=== PATIENT | female | born 1945 | race Caucasian/White ===

== ENCOUNTER 2024-03-01 19:28 | Emergency (ER) | payer OTHER, SELFPAY ==
[2024-03-01 19:36] VITALS: BP 149/100; PULSE 76; TEMP 36.6; O2SAT 96; BMI 31.1
--- NOTE | 2024-03-01 19:46 | ED.LOWEXI1 ---
HPI HPI - Extremity Injury (Lower) General Chief Complaint: Extremity Injury, Lower Stated Complaint: LE INJURY Time Seen by Provider: 03/01/24 19:36 Source: patient Mode of arrival: Wheelchair Limitations: no limitations History of Present Illness HPI Narrative: 79 year old female presents to the ED for left knee pain. It wraps around the knee then up and down the leg. Onset was a few days ago. Denies fever, chills, injury, weakness, N/T. She had outpatient x-rays at [facility] today. States her pcp was to send a prescription for pain medication to her pharmacy, but the pharmacy did not receive a prescription today. She is accompanied by family. Related Data Home Medications ?Medication ?Instructions ?Recorded ?Confirmed amitriptyline 25 mg tablet mg 03/01/24 amlodipine 5 mg tablet mg 03/01/24 clonazepam 0.5 mg tablet mg 03/01/24 duloxetine 30 mg capsule,delayed mg PO 03/01/24 release gabapentin 100 mg capsule mg 03/01/24 gabapentin 400 mg capsule mg 03/01/24 hydroxychloroquine 200 mg tablet mg PO 03/01/24 metoprolol tartrate 50 mg tablet 50 mg PO BID 03/01/24 03/01/24 (Lopressor) omeprazole 40 mg capsule,delayed mg 03/01/24 release simvastatin 20 mg tablet mg 03/01/24 Previous Rx's ?Medication ?Instructions ?Recorded hydrocodone 5 mg-acetaminophen 325 1 tab PO Q8H PRN pain #12 tabs 03/01/24 mg tablet prednisone 20 mg tablet 40 mg (2 x 20 mg) PO DAILY #10 tabs 03/01/24 Allergies Allergy/AdvReac Type Severity Reaction Status Date / Time No Known Drug Allergies Allergy Verified 03/01/24 19:45 Opioid HPI Opioid Management Most Recent Pain and Opioid Data: No Data to Display Review of Systems ROS Constitutional Denies: fever or chills Cardiovascular Denies: chest pain Respiratory Denies: shortness of breath Musculoskeletal Reports: extremity pain; Denies: back pain Neurological Denies: numbness in extremities or weakness in extremities PFSH PFSH Social History Little interest or pleasure in doing things: not at all Feeling down, depressed, or hopeless: not at all Exam Constitutional Vital Signs, click to edit/add: Last Vital Signs Temp 97.8 F 03/01/24 19:36 Pulse 76 03/01/24 19:36 Resp 20 03/01/24 19:36 BP 149/100 H 03/01/24 19:36 Pulse Ox 96 03/01/24 19:36 O2 Del Method Room Air 03/01/24 19:36 Common normals: no apparent distress and oriented x3 General appearance: cooperative Eye Common normals: conjunctivae normal and no scleral icterus Neck & C-Spine Common normals: supple Chest Chest: symmetrical chest wall rise Respiratory Common normals: normal respiratory effort Effort & inspection: able to speak in complete sentences and symmetric chest movement Cardio Common normals: regular rate Peripheral pulses: posterior tibial pulses present and dorsalis pedis pulses present Extremity Left lower extremity: knee joint (Mild swelling, tenderness. No deformity. No erythema or wounds. ) Left knee: palpation (Generalized tenderness.), ROM (Full ROM, but with increased pain), neurovascular exam (Distal sensation intact.) and other (No increased warmth.) Neuro Common normals: oriented x3 and moves all extremities Sensorium/orientation: awake and alert Speech: speech normal Course Vital Signs Vital signs: Vital Signs Temperature 97.8 F 03/01/24 19:36 Pulse Rate 76 03/01/24 19:36 Respiratory Rate 20 03/01/24 19:36 Blood Pressure 149/100 H 03/01/24 19:36 Pulse Oximetry 96 03/01/24 19:36 Oxygen Delivery Method Room Air 03/01/24 19:36 Temperature 97.8 F 03/01/24 19:36 Pulse Rate 76 03/01/24 19:36 Respiratory Rate 20 03/01/24 19:36 Blood Pressure 149/100 H 03/01/24 19:36 Pulse Oximetry 96 03/01/24 19:36 Oxygen Delivery Method Room Air 03/01/24 19:36 MDM - Extremity Injury (Lower) MDM Narrative Medical decision making narrative: Outpatient x-ray report from [facility] was reviewed. It reflected osteopenia, degenerative changes, and a knee effusion. Findings were discussed with the patient. An jose wrap was applied. The application was checked and was appropriate; the LLE remained NVI. OARRS was reviewed. Prescriptions were provided for prednisone and norco. Follow up with pcp and an orthopedist for a recheck, further evaluation and treatment. Differential Diagnosis Differential diagnosis: Likely acute internal derangement of knee and other (Knee effusion, knee pain, osteoarthritis, effusion) Medical Records Attestation: I reviewed the patient's medical records. Discharge Plan Discharge Chief Complaint: Extremity Injury, Lower Clinical Impression: Acute knee pain, Effusion of knee joint Patient Disposition: Home, Self-Care Time of Disposition Decision: 20:17 Condition: Good Mode of Transportation: Private Vehicle Prescriptions / Home Meds: New hydrocodone-acetaminophen 5-325 mg tablet 1 tab PO Q8H PRN (Reason: pain) Qty: 12 0RF prednisone 20 mg tablet 40 mg PO DAILY Qty: 10 0RF No Action clonazepam 0.5 mg tablet gabapentin 400 mg capsule amlodipine 5 mg tablet omeprazole 40 mg capsule,delayed release(DR/EC) amitriptyline 25 mg tablet simvastatin 20 mg tablet gabapentin 100 mg capsule hydroxychloroquine 200 mg tablet PO duloxetine 30 mg capsule,delayed release(DR/EC) PO metoprolol tartrate [Lopressor] 50 mg tablet 50 mg PO BID Print Language: Urugu[place] Instructions: Swollen Knee Joint (ED), Knee Pain (ED), Arthralgia (ED) Additional Instructions: Follow up with your medical record specialist for a recheck, further evaluation and treatment. Return to the ER for worsening symptoms. Referrals: MAYCO VELASQUEZ [Primary Care Provider] - 1 week
[2024-03-01] MEDS: MORPHINE SULFATE 4 MG/ML VIAL IM (20:05)
[2024-03-01] MEDS: ONDANSETRON 4 MG RAPDIS TABLET SL (20:06)
[2024-03-01] MEDS: HYDROCODONE/ACET 5-325 MG TABLET 2 TAB PO (20:45)
== END 2024-03-01 21:01 | disposition home or self-care (01) ==
PROVIDERS: Emergency Provider Student in an Organized Health Care Education/Training Program; PCP Family Medicine
DX: M25.462 Effusion, left knee (principal); M25.562 Pain in left knee
CPT/HCPCS: 96372; 99284; J2270; Q0162

== ENCOUNTER 2025-01-22 06:16 | Emergency (ER) | payer OTHER, SELFPAY ==
--- OUTSIDE RECORDS SUMMARY | 2012-02-17 04:09 | XMS_ITS | Continuity of Care Document ---
Author Organization [facility] Address [address] [place] [address] Phone Care Team Providers Care Welcome [place] Agent Name Role Phone Greg Zuluaga Unavailable Unavailable [...] Copied on Encounter OFFICE/OUTPAT IENT VISIT, EST [facility], [address], [place], [id number], [place] tel:[phone] [facility] Need for prophylactic vaccination and inoculation against viralhepatitis Ausncion Davison. [address], [place], [id number] , [place]. tel:[phone] Family History Family Member Type Diagnosis Age At Onset No Information Immunizations Vaccine Date Status Comments Hep A (adult) administered Note: VIS give n ; Source: New Immunization Record Payers Payer name Insurance type Covered republican ID Authoriza tion(s) Aetna Medicare Advantage [id number] [...]
--- OUTSIDE RECORDS SUMMARY | 2025-01-09 19:14 | XMS_ITS | Continuity of Care Document ---
Author Organization [facility] Address [address] [place] [address] Phone Care Team Providers Care Ux Information Architect Name Role Phone Florentino Mabry DO Primary Care Provider [phone] Self, Referral Attending Provider Unavailable Florentino Mabry DO Attending Provider Care Teams Patient Care Team Team Status: Active Member Role/Relationship Status Dates Florentino Mabry DO Primary Care Provider Active Visit Care Team Team Status: Inactive Member Role/Relationship Status Dates Florentino Mabry DO Primary Care Provider Active S tart: October 19, 2024 End: October 19, 2024Referral SelfAttending ProviderActiveStart: October 19, 2024 End: October 19, 2024 Visit Care Team Team Status: Inactive Member Role/Relationship Status Dates Florentino Mabry DO Primary Care Provider Active S tart: November 21, 2024 End: November 21, 2024Datramaine Mabry DOAttending ProviderActiveStart: November 21, 2024 End: November 21, 2024 Visit Care Team Team Status: Active Member Role/Relationship Status Dates Florentino Mabry DO Primary Care Provider Active S tart: November 23, 2024 Robert Campbell ProviderActiveStart: November 23, 2024 Visit Care Team Team Status: Inactive Member Role/Relationship Status Dates Florentino Mabry DO Primary Care Provider Active S tart: November 23, 2024 End: November 23, 2024Datramaine Mabry DOAttending ProviderActiveStart: November 23, 2024 End: November 23, 2024 Visit Care Team Team Status: Inactive Member Role/Relationship Status Dates Florentino Mabry DO Primary Care Provider Active S tart: December 02, 2024 End: December 02, 2024DaRobert Arias ProviderActiveStart: December 02, 2024 End: December 02, 2024 Visit Care Team Team Status: Inactive Member Role/Relationship Status Dates Florentino Mabry DO Primary Care Provider Active S tart: December 05, 2024 End: December 05, 2024DaRobert Arias ProviderActiveStart: December 05, 2024 End: December 05, 2024 Patient Care Team Team Status: Inactive Member Role/Relationship Status Florentino Mabry Primary Care Provider Active S tart: January 09, 2025 End: January 09, 2025DaRobert Arias ProviderActiveStart: January 09, 2025 End: January 09, 2025 Chief Complaint and Reason for Visit Chief Complaint Admit Date Screening October 19, 2024 8:0 7am R73.9, N30.90, E55.9, Z79.899, E78.5 [facility] 8:16am Referral Order November 23, 2024 1:02pm N39.0 November 23, 2024 1:15pm review labs/med refill December 02 8:01am N39.0 December 05, 2024 12:37pm i49.9 r06.02 January 09, 2025 7 :33am Reason for Visit Admit Date Anxiety December 02, 2024 8:01am Edema December 02, 2024 8:01am Hyperglycemia December 02, 2024 8:01am Hyperlipidemia December 02, 2024 8:01am Hypertension December 02, 2024 8:01am Iron deficiency anemia December 02 025 8:01am [facility] 8:01am Restless leg syndrome December 02 8:01am SVT (supraventricular tachycardia) [facility] 2024 8:01am UTI (urinary tract infection) December 02, 2024 8:01am Vitamin D deficiency December 02 8:01am Weight loss December 02, 2024 8:01am Allergies, Adverse Reactions, Alerts Allergen Type Severity Reaction Last Updated Verified Status lorazepam Adverse Reaction Severe Confusion Septembe r 2024 8:28am Yes Active Social History Smoking Status Status Start Date End Date Date of Observa tion Never smoked tobacco (finding) July 17, 2024 11:57pm Observation Status Observation Response Date of Response Legal Sex Female (finding) [facility] Family History Relationship Condition Age at Onset Recorded Date/T gonzales daughter Malignant neoplasm Unknown fatherDeceasedUnknownHeart diseaseUnknowngrandparentDeceasedUnknownMalignant neoplasmUnknowngrandparentDeceasedUnknowngrandparentDeceasedUnknownHeart disease UnknowngrandparentDeceasedUnknownMalignant neoplasmUnknowngrandparentMalignant neoplasmUnknowngrandparentMalignant neoplasmUnknownmotherDeceasedUnknown Malignant neoplasmUnknown Problems Active Problems Problem Diagnosis/Recorded Date Onset Date Status C omments UTI (urinary tract infection) November 23, 2024 11:23am Unknown Active Rheumatoid arthritisMay 2023 2:51pmUnknownActiveInsomniaMay 2023 2:51pmUnknownActiveCarpal tunnel syndrome of left wristMarch 2024 8:35am UnknownActiveShortness of breathSeptember 2024 1:32pmUnknownActiveFatty liverFebruary 2023 9:01amUnknownActiveAnxietyFebruary 2023 9:01am UnknownActiveArrhythmiaSeptember 2024 11:24amUnknownActiveEdemaSeptember 2024 8:41amUnknownActiveHistory of carpal tunnel surgery of right wrist June 01, 2024 8:23amUnknownActiveHyperglycemiaJune 2023 8:42amUnknown ActiveHyperlipidemiaFebruary 2023 9:01amUnknownActivePulmonary noduleMay 2023 11:27amUnknownActivesaw Dr. Mcrae in the past, has history of stable noncalcified pulmonary nodules bilaterallyOsteoarthritisJune 2023 8:36am UnknownActiveOsteopeniaFebruary 2023 9:01amUnknownActiveNeuropathyMay 2023 2:55pmUnknownActiveRestless leg syndromeFebruary 2023 9:01am UnknownActiveSVT (supraventricular tachycardia)July 28, 2023 2:51pmUnknown ActiveLumbar degenerative disc diseaseAugust 2023 3:58pmUnknownActiveWeight gainFebruary 2023 9:42amUnknownActiveWeight lossSeptember 2024 8:32amUnknownActiveIron deficiency anemiaFebruary 2023 9:01amUnknownActive Knee pain, leftDecember 2023 9:29amUnknownActiveSensorineural hearing loss (SNHL) of right earOctober 2018 9:12amUnknownActiveCystitisMarch 2023 1:34pmUnknownActiveHypertensionFebruary 2023 9:01amUnknownActiveNumbness and tingling in left handDecember 2023 9:29amUnknownActiveVitamin D deficiencyMay 2023 11:27amUnknownActiveInactive/Resolved Problems Problem Diagnosis/Recorded Date Onset Date Status C omments Anxiety July 18, 2024 12:55am Unknown Resolved CephalgiaMay 2024 12:55amUnknownResolvedNauseaMay 2024 12:55amUnknown ResolvedAcute hypokalemiaMay 2024 12:56amUnknownResolved Medications Medication Status Dose Units Route Directions Qty Days Refills S tart Date Stop Date End Date Reason(s) Instructions Adherence Cephalexin 500 mg capsule Discontinued 500 MG PO T wice daily 14 0May 18, 2023 1:00amJune 2023 8:11amCephalexin 500 mg capsule Kpsviocgmjuw923YTHZOvbsm times tbzry6124IqbxtJune 03, 2023 12:00amMarch 2023 10:51amCephalexin 500 mg ngizazuCwhbmznzsrcy456TIIZQwwah times klise2717Mzhfb 2023 10:50amJune 2023 8:11amNitrofurantoin Monohyd/M-Cryst (Macrobid) 100 mg souejkiYnmwuiqsdjjx689QXCBQdybu siejt2043Dloen 2023 12:00amJune 2023 8:15ammust administer with a meal/foodClonazepam 0.5 mg tabletDiscontinued0 POAs Brdeokbd64756Jgepx 2023 10:31amMay 2023 8:27amRestless legs syndrome Restless legs syndrometake 1-2 (0.5 MG) tablets at HS & take 1 (0.5 MG) tab in the AM orally as directed;Clonazepam 0.5 mg tsxleeUasgeaiktigk5IBVm Tawwxapy9128 0Sdy 2023 8:26amJune 2023 4:56pmRestless legs syndrome Restless legs syndrometake 1-2 (0.5 MG) tablets at HS & take 1 (0.5 MG) tab in the AM orally as directed;Clonazepam 0.5 mg aodgtuGkoqxpntxpkr8IGCu Rlestfec4945 0June 2023 4:55pmJuly 2023 9:05amRestless legs syndrome Restless legs syndrometake 1-2 (0.5 MG) tablets at HS & take 1 (0.5 MG) tab in the AM orally as directed;Clonazepam 0.5 mg nadvsaRjnmknrvylgd9PTHb Qnotinbm3607 0July 2023 9:05amSeptember 2023 9:15amRestless legs syndrome Restless legs syndrometake 1-2 (0.5 MG) tablets at HS & take 1 (0.5 MG) tab in the AM orally as directed;Methylprednisolone (Medrol (Royal)) 4 mg tablets,dose kcmdFjdcbqmwgyiz6GKjym package cxctkjbiem3102Tmld 2023 12:00amJuly 2023 12:42pmwith foodMethylprednisolone (Medrol (Royal)) 4 mg tablets,dose pack Lskqverluljf0YIstf package ajnuuvhxni2239Vblc 2023 12:42pmAugust 2023 3:48pmwith foodPrednisone 20 mg chwadxPwscxpoldzil4SY.with food or cgzv6317 October 22, 2023 12:00amSeptember 2023 8:15amtake 3 tablets a day x3 days, 2 tabs a day x3 days and then 1 tab a day x3 days orally WITH FOOD ORMILK; Duloxetine 30 mg capsule,delayed release(DR/EC)Ytssnmsnhflt52BBQBHdkqf daily October 29, 2023 9:16amAugu2023 10:50amDuloxetine 30 mg capsule,delayed release(DR/EC)Ykrodvitldra52FVZDOauqi tuzgp8235Afgzbm 15th, 2024 10:49amAugust 2023 10:53amDuloxetine 30 mg capsule,delayed release(DR/EC) Pwttfurfzdmz35WMTWOvgkc ugkwb89490Dysxhg 2023 10:52amAugust 2024 8:21amHydrocodone-Acetaminophen 5-325 mg rkrfzgBukjiwtrztzr0AGCIMWsdwx 6 hours as needed for jqid1090Slhdha 2023September 2023 8:15amDegeneration of intervertebral disc of lumbar region Other intervertebral disc degeneration, lumbar regionClonazepam 0.5 mg tablet Phvgvqixdepm2ZGKa Emqcsgxk14136Btyuzexaw 3rd, 2024 9:12amOctober 2023 2:31pmRestless legs syndrome Restless legs syndrometake 1-2 (0.5 MG) tablets at HS & take 1 (0.5 MG) tab in the AM orally as directed;Clonazepam 0.5 mg arctzrPeiziqcoenvf6CFSx Jhvwwreu2354 0October 2023 2:30pmNovember 2023 2:57pmRestless legs syndrome Restless legs syndrometake 1-2 (0.5 MG) tablets at HS & take 1 (0.5 MG) tab in the AM orally as directed;Clonazepam 0.5 mg gmuwmpVwvizvrocevc4BTLf Nfisyyah8419 0December 2023 4:03pmJanuary 2024 10:47amRestless legs syndrome Restless legs syndrometake 1-2 (0.5 MG) tablets at HS & take 1 (0.5 MG) tab in the AM orally as directed;Hydrocodone-Acetaminophen 5-325 mg tabletDiscontinued1 TABPOEvery 6 hours as needed for jzgq2116Rovbhdga 2023June 2024 9:44amLeft knee pain Pain in left kneeClonazepam 0.5 mg tnznljAzihezskwbco3XWWt Ocvwdkes95440Dgvsomv 2024 10:46amFebruary 2024 1:41pmRestless legs syndrome Restless legs syndrometake 1-2 (0.5 MG) tablets at HS & take 1 (0.5 MG) tab in the AM orally as directed;Omeprazole 40 mg capsule,delayed release(DR/EC)Active 40MGPOTwice eygfq0077Wblavdo2024 10:10amUnknownOseltamivir (Tamiflu) 75 mg bhujdrwNtpsjcwdyild34KKDRCpygt950Tztodnqo 2024 1:00amMarch 2024 8:15amClonazepam 0.5 mg aiixhnXjemnkojfbps2NXWf Nhxbyqmm00995Oizgpurw 2024 1:41pmMarch 2024 8:51amRestless legs syndrome Restless legs syndrometake 1-2 (0.5 MG) tablets at HS & take 1 (0.5 MG) tab in the AM orally as directed;Simvastatin 20 mg ugkirfEwkmvu88QWUZRsjus xonlnfu752 May 09, 2024 9:48amUnknownMeloxicam 15 mg maxndcOjptnxrilqyg12UMYXJicsl01 0March 2024 10:02amApril 2024 9:54amMeloxicam 15 mg tabletDiscontinued 0.ROUTE.SSQAKVU763Mdzbh 2024 9:53amJuly 2024 11:28amTAKE 1 TABLET DAILYClonazepam 0.5 mg eaohafVkkjxxksukns1BFWi Gahfjcwq43316Rrefm 2024 3:07pmMay 2024 8:09amRestless legs syndrome Restless legs syndrometake 1-2 (0.5 MG) tablets at HS & take 1 (0.5 MG) tab in the AM orally as directed;Valsartan 160 mg scauabIbjewq268VBFJTemxk670Bnk 2024 8:09amUnknownClonazepam 0.5 mg gbucqbTpkwjsqzkzuz7NVBx Xaueofec79394Tee 2024 8:09amJune 2024 3:16pmRestless legs syndrome Restless legs syndrometake 1-2 (0.5 MG) tablets at HS & take 1 (0.5 MG) tab in the AM orally as directed;Clonazepam 0.5 mg pydrefLrfowgdaqphn5ZSYh Cwadshbp1087 0June 2024 3:16pmJuly 2024 8:51amRestless legs syndrome Restless legs syndrometake 1-2 (0.5 MG) tablets at HS & take 1 (0.5 MG) tab in the AM orally as directed;Ropinirole 0.25 mg tabletDiscontinued0.25MGPODaily at ydboewu905Sbjv 2024 12:00amJuly 2024 8:51amadminister 1-3 hours before bedtimeRopinirole 0.25 mg tabletDiscontinued0.25MGPODaily at ndwbcmu359 October 05, 2024 8:50amOctober 2024 11:53amadminister 1-3 hours before bedtimeClonazepam 0.5 mg muoncsSzfpxabibtya4POYc Cdkcmnny03379Yxel 2024 8:51amJuly 2024 8:51amRestless legs syndrome Restless legs syndrometake 1-2 (0.5 MG) tablets at HS & take 1 (0.5 MG) tab in the AM orally as directed;Clonazepam 0.5 mg lgfxyuLqawjbywtqsc8DNLw Xfliwtzn7017 0July 2024 8:51amSeptember 2024 8:43amRestless legs syndrome Restless legs syndrometake 1-2 (0.5 MG) tablets at HS & take 1 (0.5 MG) tab in the AM orally as directed;Meloxicam 15 mg tabletDiscontinued0.ROUTE.WXUQIHQ318 October 12, 2024 11:27amAugust 2024 8:21amTake 1 tablet by mouth once daily Duloxetine 30 mg capsule,delayed release(DR/EC)Discontinued0.ROUTE.NZKSOAT7632 October 21, 2024 8:21amSept2024 8:24amTAKE 1 CAPSULE TWICE DAILY Meloxicam 15 mg tabletDiscontinued0.ROUTE.ZVNQXOY398Okkukk 2024 8:21am December 02, 2024 8:24amTAKE 1 TABLET DAILYClonazepam 0.5 mg szwnsgFalpga0KA As Zeilogpw74959Rhvncjpjh 10th, 2025 8:43amRestless legs syndrome Restless legs syndrometake 1-2 (0.5 MG) tablets at HS & take 1 (0.5 MG) tab in the AM orally as directed;UnknownCefdinir 300 mg hfrgitzKuabon861SMNVKbppt53212 November 23, 2024 12:00amTake 2 (300 mg) capsules together once a day for 10 daysUnknownRopinirole 0.25 mg tabletActive0.25MGPODaily at lbbshos830Yzlqzwq 2024 11:53amadminister 1-3 hours before bedtimeUnknownMetoprolol Succinate 50 mg Tablet Extended Release 24 MaWwrwlr40YJIARgzpi dailyJanuary 2017 1:00amUnknownHydrocodone-Acetaminophen 5-325 mg znxatsRqvaovfkqmph6CSWPRD2H as needed for PainJanuary 2017 1:00amFebruary 2023 9:18amMeloxicam 15 mg YopwrjUgxdglfhrooi01CPMSXyngzBqthiib 2017 1:00amJune 2023 8:39am Clonazepam 0.5 mg gbishwMbizcxggigad5OGREQKsott at bedtimeJanuary 2017 1:00amFebruary 2023 9:54amAmlodipine 5 mg RpawnrNyohddtojggn7DMGFUMzfzg March 17, 2017 1:00amAugust 2023 3:47pmOmeprazole 40 mg Capsule,Delayed Release(Dr/Ec)Tdqmqrlqwmbu35OWPKIlgtxXjwbilf 2017 1:00amJune 2023 8:17amAspirin (Aspir-81) 81 mg Tablet,Delayed Release (Dr/Ec)Fiuhgohkutzb12DBJF DailyJanuary 2017 1:00amFebruary 2023 9:16amAmitriptyline 25 mg WoylbvZldiiqcjojoj97WAGOZlkwv at bedtimeJanuary 2017 1:00amMa2024 12:07amTriamcinolone Acetonide 0.025 % NrfruIaghgodukhre6OHJKISIIKKNJDFpisp March 17, 2017 1:00amJune 2023 8:17amSimvastatin 20 mg Tablet Vralwfgdvyux00EKCPGbete eveningMarch 17, 2017 1:00amFebruary 2024 9:49amDuloxetine 30 mg Capsule,Delayed Release(Dr/Ec)Fywfjuxjdsgt83EADYRphqd March 17, 2017 1:00amAugust 2023 9:17amZolmitriptan (Zomig) 2.5 mg [place],Non-XxbvxmlQhbhaq1LHFIBZMSJYZYXebc times daily as needed for Headache March 17, 2017 1:00amUnknownMultivitamin WdkdslCwridr1PDXBMKjvppHnjeyrs 2018 12:00amUnknownAscorbic Acid (Vitamin C) (Vitamin C) 500 mg TndkykEeegnq079 MGPODailyOctober 2018 12:00amUnknownFerrous Sulfate (Iron) 325 mg (65 mg iron) CxylxkSjapjnizwucy12FSUDCewsmHrvyila 2018 12:00amAugust 20, 2023 8:17amVitamin E 400 unit HptvtniMydzgu522VIYBVYLzaclEfdtklu 2018 12:00am UnknownVitamin B Complex (Super B-50 Complex) MhzvfdiZezchl3ZYDPNBpwieJiobkvj 2018 12:00amUnknownCoenzyme Q10 (Coq-10) 100 mg HzubmqgKqommn537TARUKcccf January 04, 2019 12:00amUnknownCholecalciferol (Vitamin D3) (Vitamin D3) 5,000 unit ZulinvUncizp9335RVMIGFQcromNggqgvc 2018 12:00amUnknownSodium Bicarbonate 325 mg HwbqrkJddkghgfyjix6FDWEByabv dailyOctober 2018 12:00am May 13, 2023 9:19amOndansetron Hcl 4 mg dfbgvfRutcnj8ALENKpjqx 8 hours as needed for nausea and kryjzwjd8383Ejx 5th, 2025 12:00amUnknownHydroxychloroquine 200 mg ypwqqrJckliytmqkjv721MWXPAqgbm dailyFebruary 2023 1:00amJune 2024 10:29amFreeTextSig: TAKE 1 TABLET BY MOUTH TWICE DAILY Oral; Note: Source Status: Continue; Provider: MEG ROBERTGabapentin 100 mg capsuleDiscontinued MGPOFebruary 2023 1:00amFebruary 2023 9:21amFreeTextSi capsule Orally 4 in the am. and 5 at night; Note: Source Status: Taking; Provider: Zelda Good CAspirin (Tre Chewable Aspirin) 81 mg tablet,gysdyhvfGerpkduxocnx15 MGPODailyFebruary 2023 1:00amFebruary 2023 9:16amGabapentin 100 mg rnnkkvyJhzhctjiqexi872BBAMFfnacvhj 2023 9:17amJune 2023 8:17am FreeTextSi capsule Orally 5 in the am. and 5 at night; Note: Source Status: Taking; Provider: Clotilde Good CSodium Chloride 1,000 mg tablet,soluble Dsjtvredepud2KLKHPBrish dailyFebruary 2023 1:00amJune 2023 8:17am FreeTextSi tablet Orally Twice a day; Note: Source Status: Taking; Provider: Clotilde Good CVitamin B Complex ftaygpGbjbzcqchjno5DIXXARjrkoRgkvamck 2023 1:00amAugust 2023 3:49pmOmega-3 Fatty Acids 1,000 mg capsuleDiscontinued 1000MGPODailyFebruary 2023 1:00amJune 2023 8:16amClonazepam 0.5 mg icvpcaDyknzolkjqsw2WEKy Directed as neededFebruary 2023 9:52amFebruary 2023 9:55amtake 1-2 (0.5 MG) tablets at HS & take 1 (0.5 MG) tab in the AM orally as directed PRN;Clonazepam 0.5 mg sfhujlXrgfolaycloa6MSLn Yphpccfx93727 May 13, 2023 9:54amApril 2023 10:31amRestless legs syndrome Restless legs syndrometake 1-2 (0.5 MG) tablets at HS & take 1 (0.5 MG) tab in the AM orally as directed;Ferrous Sulfate (Iron) 325 mg (65 mg iron) tablet Wcqkgbzepuzq22QDEA.[facility]2023 8:12amSept2023 8:16am1 tablet by mouth Thursday and ThuGabapentin 100 mg rpmregpRxpksrsydviz6LL.[facility] August 20, 2023 8:12amMay 2024 12:06amtake 1 (100 MG) capsule in the morning by mouth and take 2 (100 MG) capsules at nightGabapentin 400 mg capsule Xojwchvjtpwx255JTMHEafwq jfkld512Mzfn 6th, 2024 12:00amMay 2024 12:06am Omeprazole 40 mg capsule,delayed release(DR/EC)Bajzzrtufqok97OTLJPvpkt dailySelect [facility]2023 8:16amJanuary 2024 10:11amSodium Chloride 1,000 mg tablet,jjugiuuBtkcke8049QAOADbmwm dailySelect [facility]2023 8:16amUnknownMeloxicam 15 mg khftjkWtkdpmehsxre54BBBWJiizl976Xwte 2023 8:38amDeceer 2023 2:54pmFerrous Sulfate (Iron) 325 mg (65 mg iron) zynxcjSqstchrhbxiw56VZWS .[facility]2023 8:14amSept2023 8:24am1 tablet by mouth Thursday and Thu and ThuFerrous Sulfate (Iron) 325 mg (65 mg iron) tablet Lsbbdrfemtne61MEID.[facility]2023 8:24amSept2023 8:50am 65 mg orally 1 tablet by mouth Thursday and Thu and Thu;Ciprofloxacin Hcl 500 mg ojwndpWsuxsvqnjejo359IRXELpbdx mawky993Mtfnc 2023 12:00amMarch 2023 9:09amHydrocodone-Acetaminophen 5-325 mg yshtlbWysxxsxiogje3FULWIVsjlf 6 hours as needed for wzsf3061Nmgwuutt 17th, 2024Deceer 2023 9:13amLeft knee pain Pain in left kneeClonazepam 0.5 mg yymwdeDggmxhjrevgw8SGFr Yfdvivnq23345Kdcmg 2024 8:50amApril 2024 3:07pmRestless legs syndrome Restless legs syndrometake 1-2 (0.5 MG) tablets at HS & take 1 (0.5 MG) tab in the AM orally as directed;Amlodipine 5 mg ixdhcaTvyhtzwxaile3AYCUKirfpJbmkrdnn 4th, 2024 1:00amNovember 2023 2:57pmAmlodipine 5 mg ratyxvDxfdbxyrbify0HSKJ Kmwdw905Yhlrzyml2023 2:57pmSept2024 8:51amClonazepam 0.5 mg wnadgyTawefenaohzb8BMXn Jpkzoijz63544Wdfinkiv 4th, 2024 2:57pmDecember 2023 4:03pmRestless legs syndrome Restless legs syndrometake 1-2 (0.5 MG) tablets at HS & take 1 (0.5 MG) tab in the AM orally as directed;Duloxetine 30 mg capsule,delayed release(DR/EC)Active 30MGPOTwice dailyDecember 02, 2024 8:23amUnknownMeloxicam 15 mg tabletActive 15MGPODailyDecember 02, 2024 8:23amUnknownAmlodipine 5 mg tjxczwMecmoj1KC Xdqmw794Ryekfgpcj2024 8:50amtake 1/2 of a 5 MG tablet orally daily; UnknownFerrous Sulfate (Iron) 325 mg (65 mg iron) bunxvwParcfi710XETJ.once weeklyDecember 03, 2023 8:48amUnknownZinc Amino Acid Chelate 50 mg tablet Mxzvwh25KGJQMhgnoWtfewa 2023 12:00amUnknownValsartan 160 mg tablet Qlxggtfvzywu431ZRHDXexplGbnrwo 2023 12:00amMay 2024 8:09am Hydrocodone-Acetaminophen 5-325 mg hslulmVsiltoqfkcax9QAMXCSkjft 6 hours as needed for chro4586Wxqwuz ugust 2023 8:28amDegeneration of intervertebral disc of lumbar region Other intervertebral disc degeneration, lumbar regionHydroxychloroquine 200 mg gdndrvYfovvsbzjcaz802WCFNYqbux cysjg89561Zenz 2024 10:26amSeptember 2024 8:14am Immunizations Immunization Event Date Not Given Reason Dose Number [employer] Lot Number Reason(s) Given Vaccine Information Statement (VIS) Detail Administration Location influenza, unspecified formulation January 11, 2020 Zoster Vaccine Recombinant, AdjuvantedSeptember 2018Trivalent Influenza VaccineOctober 2015Trivalent Influenza VaccineSeptember 2016Trivalent Influenza VaccineSeptember 2017Trivalent Influenza VaccineSeptember 2018Trivalent Influenza VaccineOctober 2019 Medical Equipment Device Date Implanted Device Details [id number] .045 STERILE 4IN March 18, 2017 Procedures Procedure Date Performed Status Urine Culture November 21, 2024 completed MM screening mammo BI w/CAD October 19, 2024 8:0 9am completed Blood Culture November 23, 2024 completed Blood Culture November 23, 2024 completed Urine Culture December 05, 2024 completed Relevant Diagnostic Tests and/or Laboratory Data Laboratory Results Test Collection Date/Time Result Date/Time Result Interpretation Reference Range Result Comment Performing Site Corrected White Blood Count November 21, 2024 8:20am November 21, 2024 10:11am 4.8 10*3/uL 3.8-11.6F[facility] [id number] [address] [facility] [address]Lgjeyeelbxj WBC CountSept2024 8:20amSept2024 10:11am4.8 10*3/uL3.8-11.6FOhio [facility] [id number] [address] [facility] [address]Ufc Blood CountSept2024 8:20amSept2024 10:11am5.04 10*6/uLAbove high normal3.60-5.00[facility] [id number] [address] [facility] [address]QkpyulsieeRzztmgiug 8th, 2025 8:20amSept2024 10:11am 14.5 g/dL11.8-15.4FOhio [facility] [id number] [address] [facility] [address]1371NkxrtzocveSusratfqk 8th, 2025 8:20amSept2024 10:11am 42.9 %34.0-46.4FOhio [facility] [id number] [address] [facility] [address]Bbdm Corpuscular VolumeSeptember 2024 8:20amSeptember 2024 10:11am85.0 qZ74-233QdlvusocmSelect Medical [facility] [id number] [address] [facility] [address]Iaxg Corpuscular HemoglobinSeptember 2024 8:20amSeptember 2024 10:11am28.8 pg24.7-34.3FOhio [facility] [id number] [address] [facility] [address]Rieo Corpuscular Hemoglobin ConcentSeptember 2024 8:20am November 21, 2024 10:11am33.9 g/dL32.0-35.0[facility] [id number] [address] [facility] [address]Nff Cell Distribution WidthSeptember 2024 8:20amSept2024 10:11am13.2 %11.9-15.3FOhio [facility] [id number] [address] [facility] [address]Hmkqtetd CountSept2024 8:20amSeptember 2024 10:46bn141 10*3/yN499-801MzlnrsokrSelect Medical [facility] [id number] [address] [facility] [address]Vffu Platelet VolumeSeptember 2024 8:20amSeptember 2024 10:11am8.1 fL6.3-10.7FOhio [facility] Surgical Hospital [facility] [id number] [address] [facility] [address]Thlnkttitlc (%) (Auto)November 21, 2024 8:20amSept2024 10:11am42.2 %.[facility] [id number] [address] [facility] [address]Lrvddopppom (%) (Auto)November 21, 2024 8:20amSeptember 2024 10:11am39.1 %.[facility] [id number] [address] [facility] [address]Yonhpabcr (%) (Auto)November 21, 2024 8:20amSept2024 10:11am12.2 %.[facility] [id number] [address] [facility] [address]Wynrjtvhgev (%) (Auto)November 21, 2024 8:20amSept2024 10:11am5.2 %.[facility] [id number] [address] [facility] [address]Jrqrdkdks (%) (Auto)November 21, 2024 8:20amSept2024 10:11am1.3 %.[facility] [id number] [address] [facility] [address]Cesmupvyi RBC Relative Count (auto)November 21, 2024 8:20am November 21, 2024 10:11am0.1 /100{WBC}0-0.5FOhio [facility] [id number] [address] [place], [place] [address]Neutrophils # (Auto)November 21, 2024 8:20amSept2024 10:11am2.0 10*3/uL1.8-7.7FOhio [facility] Surgical Hospital [facility] [id number] [address] [place], [place] [address]Lymphocytes # (Auto)November 21, 2024 8:20amSept2024 10:11am1.9 10*3/uL1.00-4.8[facility] [id number] [address] [place], [place] [address]Monocytes # (Auto)November 21, 2024 8:20amSept2024 10:11am0.6 10*3/uL0.0-0.8[facility] [id number] [address] [place] [address]Eosinophils # (Auto)November 21, 2024 8:20amSept2024 10:11am0.2 10*3/uL0.0-0.45[facility] [id number] [address] [place], [place] [address]Basophils # (Auto)November 21, 2024 8:20amSept2024 10:11am0.1 10*3/uL0.0-0.2FOhio [facility] [id number] [address] [facility] [address]Lmchj ColorSeptember 2024 8:20amSeptember 2024 10:09amLight-yellowYelPeoples Hospital Ctr [id number] [address] [facility] [address]137Egdzq ColorSeptember 2024 12:44pmSeptember 2024 2:07pmColorlessYelPeoples Hospital Ctr [id number] 1[address] [facility] 00888Gpsjt AppearanceSeptember 2024 8:20amSeptember 2024 10:09amClearCMadison Health Ctr [id number] 1[address] [facility] 42649Cfmoj AppearanceSeptember 2024 12:44pmSeptember 2024 2:07pmClearClearSelect Medical [facility] [id number] 1[address] [facility] [address]7962Lzdfg Specific GravitySeptember 2024 8:20amSeptember 2024 10:09am1.0111.001-1.030[facility] [id number] [address] [facility] 05448Dhtay Specific GravitySeptember 2024 12:44pmSeptember 2024 2:07pm1.0041.001-1.030[facility] [id number] [address] [facility] 69636Jlrgf pHSeptember 2024 8:20amSeptember 2024 10:09am 7.55.0-9.0[facility] [id number] [address] [facility] 47919Jbqwm pHSeptember 2024 12:44pmSeptember 2024 2:07pm 6.55.0-9.0[facility] [id number] [address] [facility] 41614Loyln Leukocyte EsteraseSeptember 2024 8:20amSeptember 2024 10:09amNegativeNegativeSelect Medical [facility] [id number] 1[address] [facility] 21134Mjfiy Leukocyte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
--- OUTSIDE RECORDS SUMMARY | 2025-01-14 04:15 | XMS_ITS ---
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 Florentino Mabry Primary Care Provider Alyssa Norman Unavailable [phone] Allergies No Known Allergies REASON FOR VISIT Sinus Pain/Pressure and Congestion Medications Medication SIG (Take, Route, Frequency, Duration) Notes Start Date End Date Status Simvastatin ActiveCalciumActiveclonazePAM 0.5 MGTAKE 1 TABLET IN THE MORNING AND 1 TO 2 TABLETS DAILY AT BEDTIME DIRECTED FOR 30 DAYS OralActiveOmeprazole 40 MGOral ActiveMeloxicam 15 MGTAKE 1 TABLET BY MOUTH ONCE DAILY OralActiveAmoxicillin-Pot Clavulanate 875-125 MG1 tablet Orally every 12 hrs; Duration: 7 days01/14/2025 ActiveVitamin B ComplexActiveVitamin CActiveVitamin KActiveMetoprolol Tartrate ActiveVitamin EActive Social History Tobacco Use: Social History Observation Description Date Details (start date - stop date) Never Smoker NA - NA Tobacco Control (Standard) Question Answer Notes Tobacco use: Nonsmoker Vital Signs Temperature 97.1 degrees Fahrenheit 01/15/20 25 Respiratory Rate 16 /min 01/14/2025 Blood pressure systolic 116 mm Hg 01/15/20 25 Blood pressure diastolic 80 mm Hg 025 Height 61 in 01/14/2025 Weight 150 lbs 01/14/2025 BMI 28.34 kg/m2 01/14/2025 Oximetry 99 01/14/2025 Encounters Encounter Location Date Provider Diagnosis [address] [facility] [place] [address] 01/14/2025 Alyssa Eli Acute non-recurrent pansinusitis J01.40 and Influenza vaccination declined Z28.21 Assessments Encounter Date Diagnosis (ICD Code) Assessment Notes Treatment Notes Treatment Clinical Notes Section Notes 01/14/2025 Acute non-recurrent pansinusitis (ICD-10 - J01.40) Symptoms for approx 2 weeks, likely secondary bacterial sinusitis, Complete the entire course of antibiotics as prescribed, even when symptoms have improved, to prevent a relapse of infection and thedevelopment of antibiotic resistance. Treat with augmentin per EMRA, recommend to continue mucinex D for symptom management, may try flonase and saline spray. Close follow up with PCP if no improvement or return to clinic in 7 days. Pt amenable to plan.01/14/2025 Influenza vaccination declined (ICD-10 - Z28.21) Plan Of Treatment Medication Medication Name Sig Start Date Stop Date Notes Amoxicillin-Pot Clavulanate 875-125 MG 1 tablet Orally every 12 hrs; Duration: 7 days 01/14/2025 Treatment Notes Assessment Notes Acute non-recurrent pansinusitis Symptom s for approx 2 weeks, likely secondary bacterial sinusitis, Complete the entire course of antibiotics as prescribed, even when symptoms have improved, to prevent a relapse of infection and the development of antibiotic resistance. Treat with augmentin per EMRA, recommend to continue mucinex D for symptom management, may try flonase and saline spray. Close follow up with PCP if no improvement or return to clinic in 7 days. Pt amenable to plan. Next Appt Details Follow Up: 1 Week if no impr ovement, Reason: Progress Notes * Suma SCOTTDOB:1945 (79 yo F)Acc No.[id number]:01/14/2025 Progress Notes Patient: Suma CRAIN :Michel AlvaradoMenaB:1945???Age:79 Y???Sex: FemaleDate:01/14/2025External Visit ID:[id number]:[phone]:[id number] [facility] [place]Pcp:Dr. Florentino Mabry Subjective: * Chief Complaints: * 1 . Sinus Pain/Pressure and Congestion. * HPI: ???Nose.:?sinusitis management?reason for prescribing Antibiotic regimen?medical reason,?was sinusitis caused due to bacterial infection??yes,?Onset of Symptoms:?12/31/2024.?congestion?Sick for approx 2 weeks. Nasal congestion, headaches, facial pressure, pain going into her teeth, intermittent cough. No shortness of breath or hemoptysis. Taking mucinex D without improvement..? * ROS: ???NOSE:?diffuse facial pain?yes.?congestion?yes.?MOUTH AND THROAT:?no?difficulty swallowing.?post nasal drip?yes. ?RESPIRATORY:?no?wheezing.?no?hemoptysis.?no?Shortness of breath.? * Medical History: H ypertension, SVT (supraventricular tachycardia), Hyperlipidemia, GERD (gastroesophageal reflux disease), Restless leg, Arthritis. * Surgical History: c holecystectomy , hysterectomy , knee replacement - right , shoulder . * Hospitalization/Major Diagno stic Procedure: s urgeries . * Family History: F ather: . M other: . 1 son(s) , 2 daughter(s) - healthy. . * Social History: ???General*:?Signs of Abuse or Neglect: no, , Alyssa Eli 01/14/2025 09:32:02 AM EDT >. Occupation: Retired, , Alyssa Eli 01/14/2025 09:32:09 AM EDT >. ???Tobacco Use:?Tobacco Control (Standard)?Tobacco use:?Nonsmoker.? * Medications: T aking Vitamin E , Taking Vitamin B Complex , Taking Vitamin C , Taking Vitamin K , Taking Metoprolol Tartrate , Taking Simvastatin , Taking Calcium , Taking clonazePAM 0.5 MG Tablet TAKE 1 TABLET IN THE MORNING AND 1 TO 2 TABLETS DAILY AT BEDTIME DIRECTED FOR 30 DAYS Oral , Taking Omeprazole 40 MG Capsule Delayed Release Oral , Taking Meloxicam 15 MG Tablet TAKE 1 TABLET BY MOUTH ONCE DAILY Oral , Medication List reviewed and reconciled with the patient * Allergies: N .K.D.A. Objective: * Vitals: T emp:97.1, Pulse:84, RR:16, BP:116/80, Pain (at time of visit):05/23, LNMP:hysterectomy, Ht: 61, Wt: 150, BMI:28.34, Pulse Ox:99. * Examination: ???Focused Exam: ?GENERAL:?alert and oriented x 4, no acute distress, dress appropriate for the environment & temp, well-groomed, appears well.?HEAD:?symmetrical facial features, normocephalic.?EARS:?bilateral, external canal w/o redness, swelling, discharge, TM intact, pearly parmar, landmarks visualized, non-tender.?NOSE?external nose free of swelling, trauma, and deviation, mucopurulent discharge, diffuse frontal and maxillary tenderness.?MOUTH AND THROAT:?lips pink, moist, oral mucosa pink, moist, w/o lesions or discolorations, uvula midline, pharynx pink, moist, w/o infection, no tonsillar enlargement, no exudate, white post-nasal drainage with mild cobblestoning.?NECK:?no lymphadenopathy, full range of motion.?RESPIRATORY:?breath sounds clear throughout, respiration even and unlabored.?CARDIO:?S1 & S2 single sounds, no murmurs, gallops, rubs, or clicks, RRR.?CQM Exceptions:?Influenza Vaccine not administered:?Patient ReasonType of Patient Reason:?Patient refused service.? Assessment: * Assessment: 1.?Acute non-recurrent pansinusitis - J01.40 (Primary)???2.?Influenza vacci nation declined - Z28.21??? Plan: * Treatment: Start Amoxicillin-Pot Clavulanate Tablet, 875-125 MG, 1 tablet, Orally, every 12 hrs, 7 days, 14 Tablet, Refills 0.?? Notes: Symptoms for approx 2 weeks, likely secondary bacterial sinusitis, Complete the entire course of antibiotics as prescribed, even when symptoms have improved, to prevent a relapse of infection and the development of antibiotic resistance. Treat with augmentin per EMRA, recommend to continue mucinex D for symptom management, may try flonase and saline spray. Close follow up with PCP if no improvement or return to clinic in 7 days. Pt amenable to plan.?? * Procedure Codes: C ODER Sending to Medical Office Manager for Code Review * Follow Up: 1 Week if no improvement * Billing Information: * Visit Code: * Procedure Codes: COMIC ARTIST Sending to Medical Office Manager for Code Review. Care Plan Details* * ign off status: Completed true * Provider: Laureen Eli Date: 1 03/16/2024 Generated for Printing/Faxing/eTransmitting on:?01/22/2025 05:53 AM REWORKER History and Physical Notes * HPI (History of Present Illness) CategorySub-CategoryDetailNotesCategory NotesNose.congestionSick for approx 2 weeks. Nasal congestion, headaches, facial pressure, pain going into her teeth, intermittent cough. No shortness of breath or hemoptysis. Taking mucinex D without improvement.sinusitis managementreason for prescribing Antibiotic regimen: medical reasonwas sinusitis caused due to bacterial infection? : yes Onset of Symptoms:: 12/31/2024 Examination CategorySub-CategoryDetailNotesCategory NotesFocused ExamHEAD:symmetrical facial features, normocephalicEARS:bilateral, external canal w/o redness, swelling, discharge, TM intact, pearly parmar, landmarks visualized, non-tenderNOSEexternal nose free of swelling, trauma, and deviation, mucopurulent discharge, diffuse frontal and maxillary tendernessMOUTH AND THROAT:lips pink, moist, oral mucosa pink, moist, w/o lesions or discolorations, uvula midline, pharynx pink, moist, w/o infection, no tonsillar enlargement, no exudate, white post-nasal drainage with mild cobblestoningNECK:no lymphadenopathy, full range of motionRESPIRATORY: breath sounds clear throughout, respiration even and unlaboredGENERAL:alert and oriented x 4, no acute distress, dress appropriate for the environment & temp, well-groomed, appears wellCARDIO:S1 & S2 single sounds, no murmurs, gallops, rubs, or clicks, RRRCQM Exceptions:Influenza Vaccine not administered:: Patient Reason? Type of Patient Reason:: Patient refused service
[2025-01-22] VITALS (11 sets, daily range): BP systolic 148–211; BP diastolic 92–117; PULSE 58–75; TEMP 36.7; O2SAT 96–100; BMI 28.3
--- NOTE | 2025-01-22 06:23 | ECG_ITS ---
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 Measurements Intervals [place] Rate: 61 P: -4 [place]: 156 QRS: 21 QRSD: 76 T: 1 QT: 408 QTc: 412 Interpretive Statements 1100 Sinus rhythm 9110 normal ECG No previous ECG available for comparison Electronically Signed On 01-22-2025 22:10:45 EST by DEBRA DE JESUS M.D.
--- NOTE | 2025-01-22 06:45 | ED_ITS ---
HPI HPI - General Adult General Chief complaint: Chest Pain Stated complaint: chest tightness Time Seen by Provider: 01/22/25 06:44 Source: patient Mode of arrival: walk-in History of Present Illness HPI narrative: presents complaining of epigastric pain ongoing since yesterday. Also complains of occipital headache for couple of days. Not as bad as her migraines. No chest pain or dyspnea. No fever Related Data Home Medications ?Medication ?Instructions ?Recorded ?Confirmed amitriptyline 25 mg tablet mg 03/01/24 amlodipine 5 mg tablet mg 03/01/24 clonazepam 0.5 mg tablet mg 03/01/24 duloxetine 30 mg capsule,delayed mg PO 03/01/24 release gabapentin 100 mg capsule mg 03/01/24 gabapentin 400 mg capsule mg 03/01/24 hydroxychloroquine 200 mg tablet mg PO 03/01/24 metoprolol tartrate 50 mg tablet 50 mg PO BID 03/01/24 03/01/24 (Lopressor) omeprazole 40 mg capsule,delayed mg 03/01/24 release simvastatin 20 mg tablet mg 03/01/24 Previous Rx's ?Medication ?Instructions ?Recorded hydrocodone 5 mg-acetaminophen 325 1 tab PO Q8H PRN pa in #12 tabs 03/01/24 mg tablet prednisone 20 mg tablet 40 mg (2 x 20 mg) PO DAILY # 10 tabs 03/01/24 Allergies Allergy/AdvReac Type Severity Reaction Status Date / Time amoxicillin Allergy Rash Verified 01/22/25 06:20 Review of Systems ROS Status of ROS 10 or more systems reviewed and unremark able except as noted in history and below PFSH PFSH Social History Little interest or pleasure in doing things: not at all Feeling down, depressed, or hopeless: not at all Exam Constitutional Vital Signs, click to edit/add: Last Vital Signs Temp 98.0 F 01/22/25 06:20 Pulse 63 01/22/25 06:30 Resp 15 01/22/25 06:30 BP 167/117 H 01/22/25 06:27 Pulse Ox 98 01/22/25 06:30 O2 Del Method Room Air 01/22/25 06:20 Common normals: no apparent distress, average body habitus, oriented x3, no limitations, healthy appearing, alert and well nourished [facility] Common normals: normocephalic and head/scalp atraumatic Eye Common normals: EOMs intact bilaterally and conjunctivae normal Respiratory Common normals: normal respiratory effort, no retractions, no use of accessory muscles and clear to auscultation bilaterally Cardio Common normals: regular rate, regular rhythm, S1 normal heart sound and S2 normal heart sound GI Common normals: Normal to inspection, nondistended, normoactive bowel sounds present and soft to palpation Other: epigastric tenderness. no guarding Extremity Common normals: normal to inspection and full ROM Neuro Common normals: oriented x3, CN's II-XII intact bilaterally, moves all extremities and no focal motor deficits Psych Appearance: grossly normal Course Vital Signs Vital signs: Vital Signs Temperature 98.0 F 01/22/25 06:20 Pulse Rate 68 01/22/25 06:20 Respiratory Rate 20 01/22/25 06:20 Pulse Oximetry 98 01/22/25 06:20 Oxygen Delivery Method Room Air 01/22/25 06:20 Temperature 98.0 F 01/22/25 06:20 Pulse Rate 63 01/22/25 06:30 Respiratory Rate 15 01/22/25 06:30 Blood Pressure 167/117 H 01/22/25 06:27 Pulse Oximetry 98 01/22/25 06:30 Oxygen Delivery Method Room Air 01/22/25 06:20 Medical Decision Making [facility] Narrative Medical decision making narrative: presents complaining of epigastric pain and headache. Headache for past couple of days and admits her migraine headaches are usually worse. Epigastric pain ongoing since yesterday. labs ordered. EKG neg. Care will be transferred to Dr Martinez at change of shift Discharge Plan Discharge Chief Complaint: Chest Pain Clinical Impression: Abdominal pain, Headache Prescriptions / Home Meds: No Action clonazepam 0.5 mg tablet gabapentin 400 mg capsule amlodipine 5 mg tablet omeprazole 40 mg capsule,delayed release(DR/EC) amitriptyline 25 mg tablet simvastatin 20 mg tablet gabapentin 100 mg capsule hydroxychloroquine 200 mg tablet PO duloxetine 30 mg capsule,delayed release(DR/EC) PO metoprolol tartrate [Lopressor] 50 mg tablet 50 mg PO BID hydrocodone-acetaminophen 5-325 mg tablet 1 tab PO Q8H PRN (Reason: pain) Qty: 12 0RF prednisone 20 mg tablet 40 mg PO DAILY Qty: 10 0RF Print Language: Macedonian Referrals: MAYCO VELASQUEZ [Primary Care Provider, Family Practice] - 1 week
--- NOTE | 2025-01-22 06:50 | XR_ITS ---
The [address] [address] Patient Name: ALLISON LAMBERT MRN: [id number] date: 1945 Sex: F Assigned Patient Location: ED.MAIN Current Patient Location: ER Accession/Order Number: [id number] Exam Date: 01/22/2025 06:52 Report Date: 01/22/2025 08:42 At the request of: ROSALINA MONTELONGO MD Procedure: XR chest 1V XR chest 1V 01/22/2025 6:57 AM SIGNS AND SYMPTOMS: ^abdominal pain PROTOCOL: Frontal radiograph of the chest COMPARISON: None FINDINGS: The trachea is midline. Atherosclerotic changes are noted in the thoracic aorta. The heart and mediastinal structures are within normal limits. The lung parenchyma is clear. The bony thorax is intact. Degenerative changes are noted in the shoulders and thoracic spine. XR/XR chest 1V IMPRESSION: No acute cardiopulmonary pathology. Impression dictated by: Luis Antonio Moss M.D. 01/22/2025 8:42 AM Dictation Location: [place] [address] Electronically authenticated by: [id number] Y Date: 01/22/2025 08:42
[2025-01-22 06:53] LABS: Hematocrit 45.9 % (36.0-48.0); Hemoglobin 15.3 g/dL (12.0-16.0); Immature Granulocytes Abs Auto 0.01 10^3/uL (0.00-0.03); Immature Granulocytes Pct Auto 0.1 % (0.0-0.5); Lymphocytes Absolute Auto 2.2 10^3/uL (1.2-3.8); Mean Corpuscular HGB Conc 33.3 g/dL (29.9-35.2); Mean Corpuscular Hemoglobin 28.8 pg (26.7-34.0); Mean Corpuscular Volume 86.3 fL (81.0-99.0); Platelet Count 309 10^3/uL (150-450); Red Blood Count 5.32 10^6/uL (4.20-5.40); White Blood Count 7.1 10^3/uL (4.0-11.0)
--- OUTSIDE RECORDS SUMMARY | 2025-01-22 06:53 | XMS_ITS | Encounter Summary ---
Author Organization [facility] Address [address] [place] [address] Phone Care Team Providers Care Grocery Stocker Name Role Phone Elainejessica Florentino Eleanor ANTHONY Primary Care Provider [phone] Encounter Details DateTypeDepartmentCare Team (Latest Contact Info)Fsnhcsxdeqg85/27/2025Scanned Document [facility] [address] [place] [id number] Scanning, Generic Provider Social History Tobacco UseTypesPacks/DayYears UsedDateSmoking Tobacco: NeverSmokeless Tobacco: NeverAlcohol UseStandard Drinks/WeekCommentsYes0 (1 standard drink = 0.6 oz pure alcohol)rarelyCommentsUnknownSex and Gender InformationValueDate RecordedSex Assigned at BirthNot on fileLegal AbmAfgtgz79/26/2022 10:45 AM EST Gender IdentityNot on fileSexual OrientationNot on filedocumented as of this encounter Plan of Treatment DateTypeDepartmentCare Team (Latest Contact Info)Jsfodpuvxde01/08/2026 8:40 AM EDTOffice Visit [facility] [address] [place] [address] Deb Hedrick MD [address] [facility] [place] [address] documented as of this encounter Procedures Procedure NamePriorityDate/TimeAssociated DiagnosisCommentsECHOCARDIOGRAM 01/09/2025 documented in this encounter Results * Echocardiogram (01/09/2025) Narrative 01/09/2025 Ordered by an unspecified provider. Authorizing ProviderResult TypeResult StatusGeneric Provider ScanningCV ECHO PROCEDURESFinal Result documented in this encounter Visit Diagnoses Not on filedocumented in this encounter Additional Health Concerns AssessmentNoted TimeA fall risk assessment has been completed for the patient 09/21/2024 9:04 AM EDTdocumented as of this encounter Care Teams Team MemberRelationshipSpecialtyStart DateEnd Date Florentino Mabry DO PCP - General05/23/20documented as of this encounter
--- OUTSIDE RECORDS SUMMARY | 2025-01-22 06:54 | XMS_ITS | Clinical Summary ---
Author Organization [facility] 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
--- OUTSIDE RECORDS SUMMARY | 2025-01-22 06:54 | XMS_ITS | Encounter Summary ---
Author Organization [facility] Address [address] [place] [address] Care Team Providers Care Test Borer Helper Name Role Phone Florentino Mabry MD Primary Care Provider [phone] Bharath Bajwa DO Unavailable [phone] Anushka Helms DO Unavailable [phone] Reason for Visit * ReasonOnset DateCommentscologuard djrdsau5901/19/2025 Encounter Details DateTypeDepartmentCare Team (Latest Contact Info)Tyrplpngeji00/06/2025Telephone [facility] [address] [place] [address] Francisca Fuller LPN [address] [facility] [address] [place] [address] cologuard results Social History Tobacco UseTypesPacks/DayYears UsedDateSmoking Tobacco: NeverSmokeless Tobacco: NeverAlcohol UseStandard Drinks/WeekCommentsYes6 (1 standard drink = 0.6 oz pure alcohol)caffeine intake : noneCommentsUnknownSex and Gender Information ValueDate RecordedSex Assigned at JeapeYssfis78/08/2023 9:47 AM ESTLegal Sex Bphrul2205/28/2022 6:53 PM EDTGender XqduzqcfOsksoq71/08/2023 9:47 AM ESTSexual DyytibofaxaYnzdqcgn30/08/2023 9:47 AM ESTdocumented as of this encounter Miscellaneous Notes * Telephone Encounter - Francisca Fuller LPN - 01/19/2025 9:16 AM EST Pt. Notified of negative cologuard results. Recommendations are for repeat in 3yrs. Either her PCP or we can order this for her when she is due. documented in this encounter Plan of Treatment Not on file documented as of this encounter Visit Diagnoses Not on filedocumented in this encounter Care Teams Team MemberRelationshipSpecialtyStart DateEnd Date Florentino Mabry MD [address] [place] [address] [place] [address] PCP - GeneralFamily Arqnnbbh70/15/23 Bharath Bajwa DO [address] [place] [address] Vevpxgdilzauze56/1/23 Anushka Helms DO [address] [address] Referring PhysicianNeurology1documented as of this encounter
--- OUTSIDE RECORDS SUMMARY | 2025-01-22 06:54 | XMS_ITS | Clinical Summary ---
Author Organization [facility] Address [address] [place] [address] Phone Care Team Providers Care Microbiology Coordinator Name Role Phone Florentino Mabry DO Primary Care Provider [phone] Allergies No known active allergies Medications MedicationSigDispense QuantityRefillsLast FilledStart DateEnd DateStatus ascorbic acid (Vitamin C) 100 mg tablet Take 1 tablet (100 mg) by mouth once daily.Active CALCIUM CITRATE-VITAMIN D3 ORAL Take 1 tablet by mouth once daily.Active cholecalciferol (Vitamin D-3) 25 MCG (1000 UT) capsule Take 1 capsule (25 mcg) by mouth once daily.Active clonazePAM (KlonoPIN) 0.5 mg tablet Take 2 tablets (1 mg) by mouth as needed at bedtime.Active DULoxetine (Cymbalta) [address] capsule Take 1 capsule (30 mg) by mouth once daily.Active hydroxychloroquine (Plaquenil) 200 mg tablet Take 1 tablet (200 mg) by mouth 2 times a day.Active magnesium oxide (Mag-Ox) 400 mg tablet Take 1 tablet (400 mg) by mouth once daily.Active omeprazole (PriLOSEC) [address] capsule Take 1 capsule (40 mg) by mouth 2 times a day.Active sodium chloride 1,000 mg tablet Take 1 tablet (1 g) by mouth 2 times a day.Active coenzyme Q-10 100 mg capsule Take 1 capsule (100 mg) by mouth once daily.Active b complex vitamins (Vitamins B Complex) capsule Take 1 capsule by mouth once daily.Active zinc gluconate 50 mg tablet Take 1 tablet by mouth once daily.Active metoprolol tartrate (Lopressor) 50 mg tablet Indications:Essential hypertensionTake 1 tablet by mouth 2 times a day. 180 tablet ctive simvastatin (Zocor) 20 mg tablet Indications:Mixed hyperlipidemiaTake 1 tablet (20 mg) by mouth once daily. 90 tablet ctive valsartan (Diovan) 160 mg tablet Indications:Essential hypertensionTake 1 tablet (160 mg) by mouth once daily. 90 tablet ctive Active Problems ProblemNoted DateDiagnosed DateBMI 29.0-29.9,adult09/22/2023Never smoked tobacco 09/22/2023Essential lsgjrkzevryf61/15/2024Mixed cxsokzcmcdmwcv47/15/2024 Supraventricular zzsloiwitja74/15/2024heumatoid yckkuacpa23/15/2024 Encounters DateTypeDepartmentCare YwrvQicboneuexr20/27/2025Scanned Document [facility] [address] [facility] [place] [address] Scanning, Generic Provider from Last 3 Months Immunizations ImmunizationAdministration DatesNext DueFlu vaccine, trivalent, preservative free, HIGH-DOSE, age 65y+ (Fluzone)12/14/2018Influenza, Bjwspkrdczh06/01/2018, 11/14/2016,12/15/2015Pneumococcal conjugate vaccine, 13-valent (PREVNAR 13) 02/14/2016Pneumococcal polysaccharide vaccine, 23-valent, age 2 years and older (PNEUMOVAX 23)02/13/2006Zoster, live03/16/2005 Family History Medical HistoryRelationNameCommentscabgFatherAtrial fibrillationMothermalignant neoplasmMotherRelationNameStatusCommentsFatherMother Social History Tobacco UseTypesPacks/DayYears UsedDateSmoking Tobacco: NeverSmokeless Tobacco: Never Tobacco Cessation:Counseling Given: Not Answered Alcohol UseStandard Drinks/WeekCommentsYes0 (1 standard drink = 0.6 oz pure alcohol)rarelyCommentsUnknownSex and Gender InformationValueDate RecordedSex Assigned at BirthNot on fileLegal GdqHgwfik99/26/2022 10:45 AM EST Gender IdentityNot on fileSexual OrientationNot on file Last Filed Vital Signs Vital SignReadingTime TakenCommentsBlood Mlhersfe072/7007 9:05 AM EDT Sqndx7909/09/2025 9:05 AM EDTTemperature--Respiratory Rate--Oxygen Saturation-- Inhaled Oxygen Concentration--Efbmgd92.8 kg (156 lb)09/21/2024 9:05 AM EDTHeight 154.9 cm (5' 1 )09/21/2024 9:05 AM EDTBody Mass Index29.48009/21/2024 9:05 AM EDT Plan of Treatment DateTypeDepartmentCare Team (Latest Contact Info)Zymikcmumgy63/08/2026 8:40 AM EDTOffice Visit [address] [place] [address] Deb Hedrick MD [address] [facility] [address] [place] [address] Health MaintenanceDue DateLast DoneCommentsLipid Panel1946Medicare Annual Wellness Visit (AWV)1946Diabetes Vkjrdncyc35/12/1964Hepatitis C Screening 01/26/1964Bone Density Scan2011Zoster Vaccines (3 of 3)02/08/2019 12/14/2018, 12/09/2018, 03/16/2005RSV High Risk: (Elderly (60+) or Population) (1 - 1-dose 75+ series)1DTaP/Tdap/Td Vaccines (2 - Td or Tdap)/08/2011Influenza Vaccine (#1)51, 01/07/2020, 12/14/2018, Additional history existsCOVID-19 Vaccine ( - season) 2024Hepatitis A VaccinesAged Out02/17/2012, 08/20/2011No longer eligible based on patient's age to complete this topicPneumococcal VaccineCompleted 02/14/2016, 12/18/2014, 03/21/2013, Additional history existsHIB VaccinesAged OutNo longer eligible based on patient's age to complete this topicHPV Vaccines Aged OutNo longer eligible based on patient's age to complete this topic Hepatitis B VaccinesAged OutNo longer eligible based on patient's age to complete this topicIPV VaccinesAged OutNo longer eligible based on patient's age to complete this topicMeningococcal VaccineAged OutNo longer eligible based on patient's age to complete this topicRotavirus VaccinesAged OutNo longer eligible based on patient's age to complete this topic Procedures Procedure NamePriorityDate/TimeAssociated DiagnosisCommentsECHOCARDIOGRAM 01/09/2025 from Last 3 Months Results * Echocardiogram (01/09/2025) Narrative 01/09/2025 Ordered by an unspecified provider. Authorizing ProviderResult TypeResult StatusGeneric Provider ScanningCV ECHO PROCEDURESFinal Result from Last 3 Months Insurance Care Teams Team MemberRelationshipSpecialtyStart DateEnd Date Florentino Mabry DO [facility] - General05/23/20
--- OUTSIDE RECORDS SUMMARY | 2025-01-22 06:54 | XMS_ITS | Clinical Summary ---
Author Organization [facility] Address [facility] [place] [address] Care Team Providers Care Body Service Team Member Name Role Phone Florentino Mabry DO Primary Care Provider [phone] Allergies No known active allergies Medications MedicationSigDispense QuantityRefillsLast FilledStart DateEnd DateStatus gabapentin (NEURONTIN) 100 mg capsule Take 100 mg by mouth three times a day. Taking 500 mg in am and 600 mg in pm Active clonazePAM (KLONOPIN) 0.5 mg tablet Take 0.5 mg by mouth as directed. 2 tabs at nightActive sodium chloride 1 gram tab Take 1 g by mouth twice daily.Active amLODIPine (NORVASC) 5 mg tablet Take by mouth once daily.Active simvastatin (ZOCOR) 20 mg tablet Take 20 mg by mouth daily at bedtime.Active metoprolol tartrate, short acting, (LOPRESSOR) 50 mg tablet Take 50 mg by mouth twice daily.Active ferrous sulfate 325 mg (65 mg iron) tablet Take 325 mg by mouth. Three times weeklyActive DULoxetine (CYMBALTA) 30 mg capsule Take 30 mg by mouth twice daily.Active amitriptyline (ELAVIL) 25 mg tablet Take 25 mg by mouth daily at bedtime.Active ZOLMitriptan (ZOMIG) 2.5 mg tablet Take 2.5 mg by mouth as needed.Active omeprazole (PRILOSEC) 40 mg capsule Take 40 mg by mouth twice daily.Active omega-3/dha/epa/dpa/fish oil (OMEGA-3 2100 ORAL) Take by mouth once daily.Active cholecalciferol (VITAMIN D) 1,000 unit tab tablet Take 1,000 Units by mouth once daily.Active vitamin b complex capsule Take 1 capsule by mouth once daily.Active Ascorbic Acid (VITAMIN C) 500 mg chew Take 500 mg by mouth once daily.Active hydrOXYchloroQUINE (PLAQUENIL) 200 mg tablet Indications:Primary osteoarthritis involving multiple jointsTAKE 2 TABLETS ONCE DAILY 180 tablet 4Active Active Problems ProblemNoted DateDiagnosed DateCannabis use without aopubudxcitr29/06/2025 Assessment & Plan (05/19/2024 7:14 AM EST): Assessment: uses edibles to help her sleep. Agrees to abstain until after surgery Iron deficiency awkikm1805/17/2024 Assessment & Plan (05/18/2024 12:24 PM EST): Assessment: Stable. Denies bleeding. Labs 05/12/24 Hgb 13.5 Hct 39.1 Hflpzwxgwimjsc11/04/2025 Assessment & Plan (05/18/2024 12:22 PM EST): Assessment: stable with current medication regimen Obesity (BMI 30.0-34.9)09/22/2023 Assessment & Plan (05/18/2024 12:25 PM EST): Assessment: Body mass index is 32.91 kg/m??. Rheumatoid yguamdyhw33/15/2024 Assessment & Plan (05/18/2024 12:24 PM EST): Assessment: stable with current medication regimen Nvekywexyz60/28/2023Essential glazoiylimvp87/28/2023 Assessment & Plan (05/18/2024 12:22 PM EST): Assessment: stable and compliant with current medications Last 5 Encounter BP Readings: Date: BP: 05/18/2024 132/85 11/25/2023 122/87 08/17/2023 130/79 08/07/2022 124/71 Gastroesophageal reflux gqsfuth0902/10/2023 Assessment & Plan (05/18/2024 12:23 PM EST): Assessment: Managed and stable with current medication. Denies difficulty swallowing or any bleeding. Klxwrftom89/28/2023 Assessment & Plan (05/18/2024 12:22 PM EST): Assessment: stable with current medication regimen Paroxysmal SVT (supraventricular tachycardia)02/10/2023 Assessment & Plan (05/18/2024 12:23 PM EST): Assessment: stable, asymptomatic, RRR today Follows with cardiology, Dr. Deb Hedrick. Was optimized for knee surgery per 03/18/24 telephone encounter Resolved Problems ProblemNoted DateDiagnosed DateResolved PkdeKmsi99 Social History Tobacco UseTypesPacks/DayYears UsedDateSmoking Tobacco: NeverSmokeless Tobacco: Never Tobacco Cessation:Counseling Given: Not Answered Alcohol UseStandard Drinks/WeekCommentsYes0 (1 standard drink = 0.6 oz pure alcohol)a few times a week a shot of red hot wisky Area Deprivation IndexAnswer Date RecordedNational Score (1-100), lower number is lower ublb533512/10/2023State Score (1-10), lower number is lower htec440ata from: https://www.neighborhoodatlas.[facility].edu/. Last address used for x[address]fex[address]/10/2023CommentsNoSex and Gender Information ValueDate RecordedSex Assigned at ZsexhDnlper61/07/2024 3:46 PM EDTLegal Sex Tubnvq7203/27/2015 11:46 AM ESTGender JukpyykoFjkmzw07/07/2024 3:46 PM EDTSexual BgmfevscnntEvsborsw69/07/2024 3:46 PM EDT Last Filed Vital Signs Vital SignReadingTime TakenCommentsBlood Tkcuhxbu491/78005/20/2024 8:30 AM EST Tzuwz6438/07/2025 8:30 AM LEHXjkgnlqqmox29.7 ??C (98 ??F)05/20/2024 8:30 AM EST Respiratory Htho1973/09/2024 8:30 AM ESTOxygen Luofmjbppk63%05/20/2024 8:30 AM ESTInhaled Oxygen Concentration--Lgiqwj09 kg (163 lb 2.3 oz)05/20/2024 6:54 AM EUWQtyxpd912.5 cm (5' 2 )05/20/2024 6:54 AM ESTBody Mass Index29.8405/20/2024 6:54 AM EST Plan of Treatment Health MaintenanceDue DateLast DoneCommentsAnnual PCP Team Chronic Disease Visit 01/26/1964Anxiety Srcuqkcmn61/12/1964Hepatitis C Hawkghsyl30/12/1964Bone Density Nhvxsuknj83/12/2011Shingrix Vaccine (3 of 3), 12/09/2018, 03/16/2005RSV Vaccine (1 - 1-dose 75+ series)1DTaP,Tdap,Td Vaccine (2 - Td or Tdap)dvance Directive Uhwsmsafxa73/01/2025Medicare Advantage Annual Wellness Visit5Covid-19 Vaccine (1 - season) 2024Influenza Vaccine (#1), 01/07/2020, 12/14/2018, Additional history existsDiabetes Bsviiuqqv124Pneumococcal Vaccine: 50+Zcetywfhp44/01/2016, 12/18/2014, 03/21/2013, Additional history exists Insurance Care Teams Team MemberRelationshipSpecialtyStart DateEnd Date Florentino Mabry, [address] [place] [address] [facility] - [facility]
--- OUTSIDE RECORDS SUMMARY | 2025-01-22 06:54 | XMS_ITS | CCD ---
Author Organization [facility] Care Team Providers Care Tub Tender Name Role Phone VAIBHAV CABRERA Referring Unavailab MAYCO Galloway Primary Care Unavailable VAIBHAV CABRERA Referring Unavailab MAYCO Galloway Primary Care Unavailable Mayco Velasquez Primary Care Physician [phone] Alida Jackson Unavailable Unavailable Aylin Campoverde Unavailable Unavailable Allegra Hong Unavailable Unavailable Mayco Velasquez Unavailable Mayco Velasquez Unavailable Unavailable Unavailable DO Mayco Velasquez Primary Care Provider Self, Referral Attending Provider Unavailable DO Mayco Velasquez Primary Care Provider DO Mayco Velasquez Attending Provider Unavailable Unavailable Ryley, Dr. Deb Merrill Attending Lenore vailable Ryley, Dr. Deb Merrill Referring Lenore vailable Dr. Mayco Velasquez Primary Care Unavaila ble DO Mayco Velasquez Primary Care Provider Self, Referral Attending Provider Unavailable Mayco Velasquez Attending Unavailable Mayco Velasquez Admitting Unavailable ALEX RIVAS Consulting Unavailable Mayco Velasquez Attending Unavailable Mayco Velasquez Admitting Unavailable DO ALEX RIVAS Consulting Unavailable Mayco Velasquez Admitting Unavailable Mayco Velasquez Attending Unavailable DO Mayco Velasquez Primary Care Provider [phone] DO Mayco Velasquez Attending Provider Mayco Velasquez DO Primary Care Provider [phone] DO Mayco Velasquez Primary Care Provider DO Mayco Velasquez Attending Provider DO Mayco Velasquez Primary Care Provider MD Deb Zamora Attending Provider [phone] Self, Referral Attending Provider Unavailable DO Mayco Velasquez Attending Provider MAYCO VELASQUEZ Primary Care Unavailable SARBJIT ANDREA Referring Unavailable Mayco Velasquez DO Primary Care Provider Mayco Velasquez MD Primary Care Provider [phone] Aydee ANTHONY Bharath Lima Unavailable Anushka Helms DO Unavailable Mayco Velasquez DO Primary Care Provider [phone] Mayco Velasquez DO Attending Provider MEJIA MERAZ Attending Unavailable MEJIA MERAZ Admitting Unavailable MAYCO VELASQUEZ Primary Care Unavailable Mayco Velasquez DO Primary Care Provider Mayco Velasquez DO Attending Provider [phone] MAYCO VELASQUEZ Primary Care Unavailable SELF Referring Unavailable SARBJIT ANDREA Attending Unavailable MAYCO VELASQUEZ Primary Care Unavailable SARBJIT ANDREA Referring Unavailable MAYCO VELASQUEZ Primary Care Unavailable SARBJIT ANDREA Attending Unavailable SARBJIT ANDREA Referring Unavailable MAYCO VELASQUEZ Primary Care Unavailable MAYCO VELASQUEZ Primary Care Unavailable MEJIA JOHN Attending Unavailable SARBJIT ANDREA Referring Unavailable MAYCO VELASQUEZ Primary Care Unavailable SARBJIT ANDREA Referring Unavailable MEJIA MERAZ Referring Unavailable MAYCO VELASQUEZ Primary Care Unavailable BELINDA WEAVER Attending Unavailable MAYCO VELASQUEZ Primary Care Unavailable BELINDA WEAVER S Attending Unavailable MAYCO VELASQUEZ Primary Care Unavailable SHANE BRISA S Referring Unavailable MAYCO VELASQUEZ Primary Care Unavailable MEJIA JOHN Attending Unavailable MAYCO VELASQUEZ Primary Care Unavailable Mayco Velasquez DO Primary Care Provider [phone] Mayco Velasquez DO Attending Provider [phone] Jenaro Max DO Emergency Provider Unavai Mayco Phipps DO Primary Care Provider DEB ZAMORA Attending Unavailable DEB ZAMORA Referring Unavailable MAYCO VELASQUEZ Primary Care Unavailable Mayco Velasquez DO Primary Care Provider [phone] Mayco Velasquez DO Attending Provider [phone] Self, Referral Attending Provider Unavailable Mayco Velasquez DO Primary Care Provider [phone] Mayco Velasquez DO Attending Provider Mayco Velasquez MD Primary Care Provider CARLITA PATINO Attending Unavailable MAYCO VELASQUEZ Referring Unavailable VAIBHAV CABRERA Referring Unavailable DEBORAH, VAIBHAV Alston Referring Unavailable VAIBHAV CABRERA Attending Unavailable Mayco Velasquez Admitting Unavailable Ron, Mayco Primary Care Unavailable Ron, Mayco Attending Unavailable Ron, Mayco Primary Care Unavailable Girjessica, Mayco Attending Unavailable Ron, Mayco Admitting Unavailable Girjessica, Mayco Primary Care Unavailable Girjessica, Mayco Attending Unavailable Ron, Mayco Admitting Unavailable Girjessica, Mayco Primary Care Unavailable Ron, Mayco Attending Unavailable Ron, Mayco Admitting Unavailable Girjessica, Mayco Primary Care Unavailable Self, Referral Admitting Unavailable Self, Referral Attending Unavailable Ron, Mayco Attending Unavailable Ron, Mayco Admitting Unavailable Ron, Mayco Primary Care Unavailable Ron, Mayco Attending Unavailable Rno, Mayco Admitting Unavailable Ron, Mayco Primary Care Unavailable Ron, Mayco Attending Unavailable Ron, Mayco Admitting Unavailable Ron, Mayco Primary Care Unavailable Ron, Mayco Primary Care Unavailable Jenaro Max Admitting Unavailable Jenaro Max Attending Unavailable Allergies Allergy ClassificationReported Allergen(s)Allergy TypeDate of OnsetReaction(s) Facility (15 sources)LORazepam; Translations: [lorazepam]Drug [id number] drowsiness, [facility] ([facility])LorazepamAllergy to [id number] Work Phone: (1 source)LORazepamDrug [id number] [facility] Medications Current Medications MedicationDrug Class(es)DatesSig (Normalized)Sig (Original)acetaminophen 325 mg / oxyCODONE hydrochloride 5 mg oral tablet (7 sources)Opioid AgonistStart: 05-20-2024 End: 45-25-0411vago 1 tablet by mouth every eight hours as neededoxyCODONE- acetaminophen (PERCOCET) 5-325 mg tablet Indications: Carpal tunnel syndrome of left wrist Take 1 tablet by mouth every 8 hours as needed for up to 10 doses. 10 tablet 05/20/2024 5ActiveStart: 50-01-7450Nrustmnn 325 mg-5 mg Tab See Instructions, 50 tab(s), Refill(s) 0, 1- 2 tab(s) Oral q4hr PRN pain. Duration 7 days, [email or web address] #[id number] Start Date: 02/26/19 Status: OrderedStart: 51-86-5363Bwjjmacn 325 mg-5 mg Tab See Instructions, 50 tab(s), Refill(s) 0, 1- 2 tab(s) Oral q4hr PRN pain. Duration 7 days, [email or web address] #[id number] Start Date: 02/26/19 Status: OrderedamLODIPine 5 mg oral tablet (20 sources)Dihydropyridine Calcium Channel BlockerStart: 58-09-9926msyx 0.5 tablet by mouth once daily, then take 1 tablet by mouth once dailyStart: 01-18-2024 End: 37-94-7936pvbc 1 tablet by mouth once dailyAmlodipine 5 mg tablet Discontinued 5 MG PO Daily 90 3 January 18, 2024 2:57pm December 02, 2024 8:51amStart: 03-17-2017 End: 21-77-9214drsg 1 tablet by mouth once dailyAmlodipine 5 mg Tablet Discontinued 1 TAB PO Daily March 17, 2017 1:00am October 20, 2023 3:47pm ascorbic acid 500 mg oral tablet (20 sources)Vitamin CStart: 69-60-8865mjay 1 tablet by mouth once dailyAscorbic Acid (VITAMIN C PO) Activetake 1 tablet by mouth once dailyascorbic acid (Vitamin C) 100 mg tablet Take 1 tablet (100 mg) by mouth once daily. Activetake 500 mg by mouth once dailyAscorbic Acid (VITAMIN C) 500 mg chew Take 500 mg by mouth once daily. ActiveAscorbic Acid (VITAMIN C PO) Vitamin C Activetake 1 capsule by mouth every twenty-four hoursVitamin C 500 mg 1 cap(s) Orally daily ActiveB Complex 100 (6 sources)Start: 01-35-6073afzr 1 tablet by mouth once dailyB Complex 100 1 tab, Oral, Daily, Refill(s) 0, Prophylaxis Start Date: 03/02/15 Status: Orderedb complex vitamins (Vitamins B Complex) capsule (2 sources)take 1 capsule by mouth once dailyb complex vitamins (Vitamins B Complex) capsule Take 1 capsule by mouth once daily. ActiveBMP (6 sources)Start: 84-05-0326HOJ BMP, BMP on 07/19/18., Print Requisition, Supply Start Date: 07/12/18 Status: OrderedCALCIUM CITRATE-VITAMIN D3 ORAL (2 sources)take 1 tablet by mouth once dailyCALCIUM CITRATE-VITAMIN D3 ORAL Take 1 tablet by mouth once daily. Activecefdinir 300 mg oral capsule (5 sources)Cephalosporin AntibacterialStart: 50-49-4928qvow 2 capsules by mouth once dailycholecalciferol 0.125 mg oral tablet (20 sources)Vitamin DStart: 99-68-6240gula 1 tablet by mouth once dailytake 1 capsule by mouth once dailycholecalciferol (Vitamin D-3) 25 MCG (1000 UT) capsule Take 1 capsule (25 mcg) by mouth once daily.Activetake 1 tablet by mouth once dailycholecalciferol (VITAMIN D) 1,000 unit tab tablet Take 1,000 Units by mouth once daily. ActiveVitamin D 1000 UNIT CAPS TAKE 1 CAPSULE Daily Quantity: 0 Refills: 0 Ordered: 23-Sep-2021 DO ActiveCoenzyme Q10 (COQ-10 PO) (7 sources)Coenzyme Q10 (COQ-10 PO) ActiveCoenzyme Q10 (COQ-10 PO) CoQ-10 Active Cymbalta 30 mg Cap-DR (3 sources)Start: 36-20-5583dvsv 1 capsule by mouth once dailyCymbalta 30 mg Cap-DR 30 mg, Oral, Daily, Refills(s) 0, Depression Start Date: 03/02/15 Status: Ordereddocusate sodium 100 mg oral capsule (6 sources)Start: 37-24-4517cccf 1 capsule by mouth twice daily as needed for constipationColace 100 mg Cap 100 mg = 1 cap(s), Oral, BID, prn constipation, # 20 cap(s), Refills(s) 0, Pharmacy: [facility] #[id number] Start Date: 02/26/19 Status: Ordereddoxycycline hyclate 100 mg oral tablet (1 source)Tetracycline-class DrugStart: 03-07-2025 End: 02-96-3914xruv 1 tablet by mouth twice dailydoxycycline (VIBRA-TABS) 100 mg tablet Take 1 tablet by mouth two times a day for 7 days. 14 chomnj5205/20/2024 05/27/2024 ActiveDULoxetine 30 mg delayed release oral capsule (20 sources)Serotonin and Norepinephrine Reuptake InhibitorStart: 80-21-9705elzc 1 capsule by mouth twice dailyStart: 10-21-2024 End: 70-64-9982Kxmaxrppkc 30 mg capsule,delayed release(DR/EC) Discontinued 0 .ROUTE .COMPLEX 180 3 October 21, 2024 8:21am December 02, 2024 8:24am TAKE 1 CAPSULE TWICE DAILYStart: 10-29-2023 End: 60-41-1421abwd 1 capsule by mouth twice dailyDuloxetine 30 mg capsule,delayed release(DR/EC) Discontinued 30 MG PO Twice daily 30 15 0 October 29, 2023 10:52am October 21, 2024 8:21amStart: 03-02-2015 End: 72-99-9869zcvq 1 capsule by mouth once dailyDuloxetine 30 mg Capsule,Delayed Release(Dr/Ec) Discontinued 30 MG PO Daily March 17, 2017 1:00am October 29, 2023 9:17amferrous sulfate 325 mg oral tablet (20 sources)Start: 10-62-8544mxtz 1 tablet by mouth every weekStart: 12-03-2023 End: 66-50-2129Fmjdojl Sulfate (Iron) 325 mg (65 mg iron) tablet Discontinued 65 MG PO .[facility] December 03, 2023 7:24am December 03, 2023 7:50am 65 mg orally 1 tablet by mouth Thursday and Thu and Thu;Start: 12-03-2023 End: 03-79-9728Ondgfje Sulfate (Iron) 325 mg (65 mg iron) tablet Discontinued 65 MG PO .[facility] December 03, 2023 8:24am December 03, 2023 8:50am 65 mg orally 1 tablet by mouth Thursday and Thu and Thu;Start: 12-03-2023 End: 33-70-6915Jieobvk Sulfate (Iron) 325 mg (65 mg iron) tablet Discontinued 65 MG PO .[facility] December 03, 2023 7:14am December 03, 2023 7:24am 1 tablet by mouth Thursday and Thu and ThuStart: 12-03-2023 End: 29-85-4446Tliltxc Sulfate (Iron) 325 mg (65 mg iron) tablet Discontinued 65 MG PO .COMPLEX December 03, 2023 8:14am December 03, 2023 8:24am 1 tablet by mouth Thursday and Thu and ThuStart: 08-20-2023 End: 50-95-4963Pbqdrsw Sulfate (Iron) 325 mg (65 mg iron) tablet Discontinued 65 MG PO .COMPLEX August 20, 2023 7:12am December 03, 2023 7:16am 1 tablet by mouth Thursday and art: 08-20-2023 End: 78-74-6195Zbraalu Sulfate (Iron) 325 mg (65 mg iron) tablet Discontinued 65 MG PO .COMPLEX August 20, 2023 8:12am December 03, 2023 8:16am 1 tablet by mouth Thursday and ThuStart: 12-93-5119Zgmxdxi Sulfate (Iron) 325 mg (65 mg iron) tablet Active 65 MG PO .COMPLEX August 20, 2023 8:12am 1 tablet by mouth Thursday and ThuStart: 72-25-4337Ydrcebv Sulfate 325 (65 Fe) MG 1 tablet Orally three days a week Apr, ActiveStart: 92-86-9681Ekjynjx Sulfate 325 (65 Fe) MG 1 tablet Orally three days a week Apr, ActiveStart: 96-81-3353ifnp 1 tablet by mouth every weekFerrous Sulfate 325 (65 Fe) MG 1 tablet Orally once a week Apr, Not-TakingStart: 01-04-2019 End: 45-35-9163Qxiguma Sulfate (Iron) 325 mg (65 mg iron) tablet Discontinued 65 MG PO .COMPLEX December 03, 2023 8:24am December 03, 2023 8:50am 65 mg orally 1 tablet by mouth Thursday and Thu and Thu;take 1 tablet by mouth three times weeklyferrous sulfate 325 mg (65 mg iron) tablet Take 325 mg by mouth. Three times weekly Activeindomethacin 25 mg oral capsule (10 sources)Nonsteroidal Anti-inflammatory Drug End: 06-61-4635orlo 1 capsule by mouth in the morningindomethacin (Indocin) 25 MG capsule Take 25 mg by mouth in the morning. ActiveIron (6 sources)Start: 67-03-7792ohvs 1 tablet by mouth every other dayiron 65 mg iron 65 mg, 1 tab, Oral, Every other day Start Date: 01/31/19 Status: Ordered ivermectin 3 mg oral tablet (5 sources)Antiparasitic, Pediculicidetake 5 tablets by mouth two times weekly Ivermectin 3 MG as directed Orally 5 tabs twice a week Activelidocaine 0.05 mg/mg medicated patch (7 sources)Antiarrhythmic, Amide Local AnestheticStart: 38-99-8117gloaq 1 dose transdermal route every twelve hourslidocaine (Lidoderm) 5 % patch Indications: Chronic left-sided low back pain with left-sided sciatica Apply 1 patch over 12 hours topically Daily Apply for 12 hours daily 30 patch 2 11/03/2023 Active magnesium oxide 400 mg oral tablet (9 sources)take 1 tablet by mouth in the morningmagnesium oxide (Mag-Ox) 400 MG tablet Take 400 mg by mouth in the morning. Activemeclizine hydrochloride 25 mg oral tablet (2 sources)AntiemeticStart: 09-12-2021 End: 20-52-7534fsmi 1 tablet by mouth every eight hours as needed for dizziness meclizine 25 mg Tab 25 mg = 1 tab(s), Oral, q8hr, PRN Dizziness, X 7 day(s), # 20 tab(s), Refills(s) 0, Pharmacy: [facility] #[id number], 154, cm, 09/12/21 13:36:00 EDT, Height/Length Dosing, 76.6, kg, 09/12/21 13:36:00 EDT, Weight Dosing Start Date: 09/12/21 Stop Date: 09/19/21 Status: Orderedtake 1 tablet by mouth once dailyMeclizine HCl - 25 MG Oral Tablet Take 1 tablet daily Quantity: 0 Refills: 0 Ordered: 23-Sep-2021 DO Activemeloxicam 15 mg oral tablet (20 sources)Nonsteroidal Anti-inflammatory DrugStart: 50-63-3299jjun 1 tablet by mouth once dailyStart: 06-21-2024 End: 98-86-7389Ywhavpiiz 15 mg tablet Discontinued 0 .ROUTE .COMPLEX 90 0 October 21, 2024 8:21am December 02, 2024 8:24am TAKE 1 TABLET DAILYStart: 03-17-2017 End: 23-48-7298xfok 1 tablet by mouth once dailyMeloxicam 15 mg tablet Discontinued 15 MG PO Daily 90 3 August 20, 2023 8:38am March 01, 2024 2: 54pmmetoprolol tartrate 50 mg oral tablet (20 sources)beta-Adrenergic BlockerStart: 07-03-2018 End: 18-19-0963iauq 1 tablet by mouth twice dailymetoprolol tartrate (Lopressor) 50 mg tablet Indications: Essential hypertension Take 1 tablet by mouth 2 times a day. 180 tablet 3 09/21/2024 09/21/2025 ActiveStart: 97-25-8307cjof 1 tablet by mouth twice dailytake 1 tablet by mouth every twelve hoursmetoprolol tartrate (Lopressor) 50 MG tablet Take 50 mg by mouth every 12 (twelve) hours Active Metoprolol Tartrate 50 mg TAKE 1 TABLET TWICE A DAY WITH FOOD ActiveMulti Vitamin Daily (20 sources)Multi Vitamin Daily Not-TakingMulti Vitamin Daily ActiveMultivitamin preparation (10 sources)Start: 37-51-3972bvea 1 tablet by mouth once dailyMultivitamin Active 1 TAB PO Daily January 03, 2019 11:00pmStart: 11-65-8235szel 1 tablet by mouth once dailyMultivitamin Active 1 TAB PO Daily January 04, 2019 12:00am Multivitamin Tablet (11 sources)Start: 49-63-1276hudb 1 tablet by mouth once dailyMultivitamin Tablet Active 1 TAB PO Daily January 04, 2019 12:00am Complies with drug therapyStart: 16-09-8128dglj 1 tablet by mouth once dailyStart: 02-02-0724mpmv 1 tablet by mouth once dailyMultivitamin Tablet Active 1 TAB PO Daily January 04, 2019 12:00amStart: 60-44-5202rdrs 1 tablet by mouth once dailyMultivitamin Tablet Active 1 TAB PO Daily January 03, 2019 11:00pmMultivitamins and Minerals (6 sources)Start: 07-32-0446ohzl 1 tablet by mouth once dailyMultivitamins and Minerals 1 tab, Oral, Daily, Refill(s) 0, Prophylaxis Start Date: 03/02/15 Status: OrderedOmega 3 (20 sources)[place] 3 Not-TakingOmega 3 Activeomega-3/dha/epa/dpa/fish oil (OMEGA- 3 2100 ORAL) (20 sources)omega-3/dha/epa/dpa/fish oil (OMEGA-3 2099 ORAL) Take by mouth once daily. Activeomega-3/dha/epa/dpa/fish oil (OMEGA-3 2100 ORAL) Take by mouth once daily. 0 Activeomeprazole 20 mg Cap-DR (2 sources)Start: 86-89-4590nmxr 1 capsule by mouth once dailyomeprazole 20 mg Cap-DR = 1 cap(s), Oral, Daily, # 30 cap(s), Refills(s) 0, Control of stomach acidStart Date: 12/26/15 Status: Orderedondansetron 4 mg oral tablet (8 sources)Serotonin-3 Receptor AntagonistStart: 19-64-3684tdus 1 tablet by mouth every eight hours as needed for nausea and vomitingpredniSONE 20 mg oral tablet (18 sources)Start: 73-13-4312wneayxLOUQ (Deltasone) 20 MG tablet 03/02/2024 ActiveStart: 46-25-2669udbs 2 tablets by mouth once dailypredniSONE (Deltasone) 20 MG tablet TAKE 2 TABLETS BY MOUTH ONCE DAILY 03/02/2024 ActiveStart: 10-22-2023 End: 93-18-0009oxnl 3 tablets by mouth once daily at mealtime, then take 2 tablets by mouth once daily, then take 1 tablet by mouth once daily at mealtime Prednisone 20 mg tablet Discontinued 0 PO .with food or milk October 22, 2023 12:00am December 03, 2023 8:15am take 3 tablets a day x3 days, 2 tabs a day x3 days and then 1 tab a day x3 days orally WITH FOOD OR MILK;Start: 10-22-2023 End: 42-24-4057icsm 3 tablets by mouth once daily at mealtime, then take 2 tablets by mouth once daily, then take 1 tablet by mouth once daily at mealtime Prednisone Discontinued 0 PO .with food or milk 01 12October 22, 2023 12:00am December 03, 2023 8:15am take 3 tablets a day x3 days, 2 tabs a day x3 days and then 1 tab a day x3 days orally WITH FOOD OR MILK;promethazine hydrochloride 25 mg oral tablet (6 sources)PhenothiazineStart: 24-97-3416kufz 1 tablet by mouth every four hours as needed for nauseapromethazine 25 mg Tab 25 mg = 1 tab(s), Oral, q4hr, PRN for nausea/vomiting, # 10 tab(s), Refills(s) 0, Pharmacy: [facility] #[id number] Start Date: 02/26/19 Status: OrderedPULMONARY FUNCTION TEST (6 sources)Start: 25-86-4497BTVCSNCYL FUNCTION TEST PULMONARY FUNCTION TEST, Pulmonary function test on 07/26/18., Print Requisition, Supply Start Date: 07/12/18 Status: OrderedrOPINIRole 0.25 mg oral tablet (15 sources)Nonergot Dopamine AgonistStart: 09-12-2024 End: 01-83-7985towc 1 tablet by mouth once daily at bedtimesodium 1gram tabs (6 sources)Start: 15-71-4439grad 1 tablet by mouth twice dailysodium 1gram tabs sodium 1gram tabs, 1 tab, Oral, BID Start Date: 01/31/19 Status: Orderedsodium chloride 1000 mg oral tablet (20 sources)Start: 05-13-2023 End: 98-72-1657kzlr 1 tablet by mouth twice dailyStart: 56-45-4432xymb 1 tablet by mouth twice dailySodium Chloride Active 1 TAB PO Twice daily May 13, 2023 1:00am FreeTextSi tablet OrallyTwice a day; Note: Source Status: Taking; Provider: Ron Reyez 1 tablet by mouth twice dailySodium Chloride 1 GM 1 tablet Orally Twice a day ActivetiZANidine 4 mg oral tablet (7 sources)Central alpha-2 Adrenergic AgonistStart: 64-17-5581zbOEMqvjlm (Zanaflex) 4 MG tablet Indications: Chronic left-sided low back pain with left- sided sciatica Take 1/2-1 by mouth twice a day 60 tablet 1 11/03/2023 Active ubidecarenone 100 mg oral capsule (20 sources)Start: 87-13-1209znww 1 capsule by mouth once dailycoenzyme Q-10 100 mg capsule Take 1 capsule (100 mg) by mouth once daily. ActiveVitamin B Complex (Super B-50 Complex) Capsule (20 sources)Start: 01-45-8032qdbw 1 capsule by mouth once dailyVitamin B Complex (Super B-50 Complex) Capsule Active 1 CAP PO Daily January 04, 2019 12:00am Complies with drug therapyStart: 68-02-9035vmls 1 capsule by mouth once daily Start: 67-53-8155vcox 1 capsule by mouth once dailyVitamin B Complex (Super B-50 Complex) Capsule Active 1 CAP PO Daily January 03, 2019 11:00pmStart: 98-52-3957adrr 1 capsule by mouth once dailyVitamin B Complex (Super B-50 Complex) Capsule Active 1 CAP PO Daily January 04, 2019 12:00amvitamin b complex capsule (20 sources)take 1 capsule by mouth once dailyvitamin b complex capsule Take 1 capsule by mouth once daily. Activetake 1 capsule by mouth once dailyvitamin b complex capsule Take 1 capsule by mouth once daily. 0 ActiveVitamin C 500 mg (20 sources)take 1 capsule by mouth once dailyVitamin C 500 mg 1 cap(s) Orally daily Not-Takingtake 1 capsule by mouth once dailyVitamin C 500 mg 1 cap(s) Orally daily ActiveVitamin D (6 sources)Start: 39-84-6831mbxu 5000 [IU] by mouth once dailyVitamin D 5,000 unit(s), Oral, Daily, Refills(s) 0, Prophylaxis Start Date: 01/31/19 Status: OrderedVitamin D 1000 mg (20 sources)take 1 capsule by mouth once dailyVitamin D 1000 mg 1 capsule Orally Once a day Not-Takingtake 1 capsule by mouth once dailyVitamin D 1000 mg 1 capsule Orally Once a day Activevitamin e 180 mg oral capsule (20 sources)Start: 14-40-5304obci 1 capsule by mouth once dailyZinc Amino Acid Chelate (3 sources)Start: 05-27-9020ymci 50 mg by mouth once dailyZinc Amino Acid Chelate Active 50 MG PO Daily October 20, 2023 12:00amZinc Amino Acid Chelate 50 mg tablet (11 sources)Start: 38-13-3972nosa 1 tablet by mouth once dailyZinc Amino Acid Chelate 50 mg tablet Active 50 MG PO Daily October 20, 2023 12:00am Complies with drug therapyStart: 19-91-6081wxlt 1 tablet by mouth once dailyStart: 84-19-1695ewdu 1 tablet by mouth once dailyZinc Amino Acid Chelate 50 mg tablet Active 50 MG PO Daily October 20, 2023 12:00amStart: 97-32-3591mtwk 1 tablet by mouth once dailyZinc Amino Acid Chelate 50 mg tablet Active 50 MG PO Daily October 19, 2023 11:00pmzinc gluconate 50 mg oral tablet (4 sources)take 1 tablet by mouth once dailyzinc gluconate 50 mg tablet Take 1 tablet by mouth once daily. ActiveZOLMitriptan 2.5 mg/actuat nasal spray (20 sources)Serotonin-1b and Serotonin-1d Receptor AgonistStart: 03-17-2017 ZOLMitriptan (ZOMIG) 2.5 mg tablet Take 2.5 mg by mouth as needed. Activetake 1 tablet nasal route once as needed, then take 4 tablets nasal route once daily as neededZomig 2.5 MG 1 tablet as needed one time Nasally prn up to 4 daily prn Active Completed/Discontinued Medications MedicationDrug Class(es)DatesSig (Normalized)Sig (Original)acetaminophen 325 mg / HYDROcodone bitartrate 5 mg oral tablet (20 sources)Opioid AgonistStart: 81-32-7534kerf 1 tablet by mouth every eight hours as neededHYDROcodone-acetaminophen ([place]) 5-325 MG tablet Take 1 tablet by mouth every 8 (eight) hours if needed 03/02/2024 ActiveStart: 03-01-2024 End: 17-99-9827dfuf 1 tablet by mouth every six hours as needed for pain Hydrocodone-Acetaminophen 5-325 mg tablet Discontinued 1 TAB PO Every 6 hours as needed for pain 287 0 March 02, 2024 August 31, 2024 9:44am Left knee pain Pain in left kneeStart: 10-20-2023 End: 39-30-5097jqui 1 tablet by mouth every six hours as needed for pain Hydrocodone-Acetaminophen 5-325 mg tablet Discontinued 1 TAB PO Every 6 hours as needed for pain 287 0 November 06, 2023 December 03, 2023 8:15am Degeneration of intervertebral disc of lumbar region Other intervertebral disc degeneration, lumbar regionStart: 62-71-6949xzbm 1 tablet by mouth four times dailyNorco 5/325 Tab 1 tab(s), Oral, QID Pain - Moderate, Refill(s) 0 Start Date: 02/28/19 Status: OrderedStart: 20-08-9058qvpy 1 tablet by mouth four times dailyNorco 5/325 Tab 1 tab(s), Oral, QID Pain - Moderate, Refill(s) 0 Start Date: 02/28/19 Status: OrderedStart: 03-17-2017 End: 62-53-0919ilql 1 tablet by mouth every six hours as needed for pain Hydrocodone-Acetaminophen 5-325 mg tablet Discontinued 1 TAB PO Q6H as needed for Pain March 1:00am May 13, 2023 9:18amamitriptyline hydrochloride 25 mg oral tablet (20 sources)Tricyclic AntidepressantStart: 03-02-2015 End: 95-38-3557fvte 1 tablet by mouth once daily at bedtimeAmitriptyline 25 mg Tablet Discontinued 25 MG PO Daily at bedtime March 17, 2017 1:00am July 18, 2024 12:07amAspir-81 (20 sources)Aspir-81 Not-Taking/PRNAspir-81 Jvi-JswnifJhxlt-41 Activeaspirin 81 mg chewable tablet (20 sources)Platelet Aggregation Inhibitor, Nonsteroidal Anti-inflammatory Drug Start: 05-13-2023 End: 12-07-3495qqrc 1 tablet by mouth once dailyAspirin (Tre Chewable Aspirin) 81 mg tablet,chewable Discontinued 81 MG PO Daily May 13, 2023 1:00am May 13, 2023 9:16amStart: 36-88-2272mxtg 1 tablet by mouth once daily aspirin 81 mg oral tablet 81 mg = 1 tab(s), Oral, Daily, Refills(s) 0, Blood Thinner Start Date: 02/28/19 Status: OrderedStart: 03-17-2017 End: 01-45-5867ezrv 1 tablet by mouth once dailyAspirin (Aspir-81) 81 mg Tablet,Delayed Release (Dr/Ec) Discontinued 81 MG PO Daily March 17, 2017 1:00am May 13, 2023 9:16amCalcium Citrate (2 sources)Citracal + D TABS Take 1 tablet daily Quantity: 0 Refills: 0 Ordered: 23-Sep-2021 DO Activecephalexin 500 mg oral capsule (20 sources)Cephalosporin AntibacterialStart: 06-03-2023 End: 12-97-3749tsmk 1 capsule by mouth three times dailyCephalexin 500 mg capsule Discontinued 500 MG PO Three times daily 21 7 0 June 03, 2023 10:50am August 20, 2023 8:11amStart: 05-18-2023 End: 80-29-2711ucnu 1 capsule by mouth twice dailyCephalexin 500 mg capsule Discontinued 500 MG PO Twice daily May 18, 2023 1:00am August 20, 2023 8:11amciprofloxacin 500 mg oral tablet (18 sources)Quinolone AntimicrobialStart: 05-27-2023 End: 25-51-3231koec 1 tablet by mouth twice dailyCiprofloxacin Hcl 500 mg tablet Discontinued 500 MG PO Twice daily May 27, 2023 12:00am June 03, 2023 9:09amclonazePAM 0.5 mg oral tablet (20 sources)BenzodiazepineStart: 11-25-2023 End: 68-93-0597zdletjaLKD orally disintegrating 0.5 mg tab(s) (KlonoPIN WAFER) Start: 11-25-2023 End: 57-12-5608moal 1 tablet by mouth once0.5 mg, ORAL, ONCE, 1 dose, On Thu11/25/23 at 1430, Hazardous Potential Reproductive Risk Drug: Useappropriate PPE. Place tablet on tongue and allow to dissolve; do not chew or break. Open packagingusing dry gloves; do not push tablet through packaging.Start: 03-17-2017 End: 58-61-3004enjx 1-2 tablets by mouth at bedtime, then take 1 tablet by mouth in the morningClonazepam 0.5 mg tablet Discontinued 0 PO As Directed 75 30 0 January 18, 2024 2:57pm February 23, 2024 4:03pm Restless legs syndrome Restless legs syndrome take 1-2 (0.5 MG) tablets at HS &take 1 (0.5 MG) tab in the AM orally as directed;clonazePAM (KlonoPIN) 0.5 mg tablet Take 2 tablets (1 mg) by mouth as needed at bedtime. Activegabapentin 400 mg oral capsule (20 sources)Anti-epileptic AgentStart: 08-18-2023 End: 22-48-9558lzmd 1 capsule by mouth twice dailyGabapentin 400 mg capsule Discontinued 400 MG PO Twice daily 60 0 August 20, 2023 12:00am July 18, 2024 12:06amStart: 05-13-2023 End: 05-53-6094Yxzxwecnuj 100 mg capsule Discontinued 0 PO .COMPLEX August 20, 2023 8:12am July 18, 2024 12:06am take 1 (100 MG) capsule in the morning by mouth and take 2 (100 MG) capsules at nightStart: 09-12-2021 End: 66-60-0992jgor 1 capsule by mouth in the morninggabapentin (Neurontin) 100 MG capsule Indications: Neuropathic Pain Take 1 capsule (100 mg) by mouth in the morning and 1 capsule (100 mg) before bedtime. Take with the 400mg tab.. 60 capsule 2 08/18/2023 Activegabapentin (NEURONTIN) 100 mg capsule Take 100 mg by mouth three times a day. Taking 500 mg in am and 600 mg in pm ActiveGabapentin Dr. Rivas Activehydroxychloroquine sulfate 200 mg oral tablet (20 sources)Antimalarial, Antirheumatic AgentStart: 08-17-2023 End: 70-70-8979ztjtGCNhcoafxKKJHD (PLAQUENIL) 200 mg tablet Indications: Primary osteoarthritis involving multiplejoints TAKE 2 TABLETS ONCE DAILY 180 tablet 1 11/30/2023 ActiveStart: 09-12-2021 End: 96-93-2020bfzy 1 tablet by mouth twice dailyHydroxychloroquine 200 mg tablet Discontinued 200 MG PO Twice daily 60 30 3 August 31, 2024 10:26am December 02, 2024 8:14amtake 1 tablet by mouth once dailyhydroxychloroquine (Plaquenil) 200 MG tablet Take 200 mg by mouth Daily ActiveMagnesium (2 sources)take 1 tablet by mouth once dailyMagnesium 400 MG Oral Tablet Take 1 tablet daily Quantity: 90 Refills: 3 Ordered: 23-Sep-2021 DO Active methylPREDNISolone 4 mg oral tablet (20 sources)CorticosteroidStart: 10-09-2023 End: 47-73-3749tmew 1 tablet by mouth once at mealtimeMethylprednisolone (Medrol (Royal)) 4 mg tablets,dose pack Discontinued 0 PO per package directions 21 6 0 October 09, 2023 12:42pm October 20, 2023 3:48pm with foodmetroNIDAZOLE 500 mg oral tablet (8 sources)Nitroimidazole AntimicrobialStart: 99-12-7794vlop 1 tablet by mouth every eight hoursmetroNIDAZOLE 500 MG 1 tablet Orally Three times a day for 14 days 13 Apr, 2022 Not-TakingNaltrexone (14 sources)Opioid AntagonistNaltrexone Not-TakingNaltrexone ActiveNaltrexone HCl TABS 4.5mg take once dialy Quantity: 0 Refills: 0 Ordered: 23-Sep-2021 DO Activenitrofurantoin, macrocrystals 25 mg / nitrofurantoin, monohydrate 75 mg oral capsule (17 sources)Nitrofuran AntibacterialStart: 06-15-2023 End: 55-90-5282szgl 1 capsule by mouth twice daily at mealtimeNitrofurantoin Monohyd/M-Cryst (Macrobid) 100 mg capsule Discontinued 100 MG PO Twice daily 14 7 0 June 15, 2023 12:00am August 20, 2023 8:15am must administer with a meal/foodOmega-3 Fatty Acids (7 sources)Start: 05-13-2023 End: 40-95-0840fsoj 1000 mg by mouth once dailyOmega-3 Fatty Acids Discontinued 1000 MG PO Daily May 13, 2023 1:00am August 20, 2023 8:16amStart: 91-68-8079edlx 1000 mg by mouth once dailyOmega-3 Fatty Acids Active 1000 MG PO Daily May 13, 2023 1:00amOmega-3 Fatty Acids 1,000 mg capsule (11 sources)Start: 05-13-2023 End: 98-44-4671wkzn 1 capsule by mouth once dailyOmega-3 Fatty Acids 1,000 mg capsule Discontinued 1000 MG PO Daily May 13, 2023 1:00am August 20, 2023 8:16amStart: 05-13-2023 End: 97-49-7803msth 1 capsule by mouth once dailyOmega-3 Fatty Acids 1,000 mg capsule Discontinued 1000 MG PO Daily May 13, 2023 12:00am 2023 7:16amomeprazole 40 mg delayed release oral capsule (20 sources)Proton Pump InhibitorStart: 12-13-2022 End: 92-04-3379zwyv 1 capsule by mouth twice dailyOmeprazole 40 mg capsule,delayed release(DR/EC) Discontinued 40 MG PO Twice daily August 20, 2023 8:16am April 04, 2024 10:11amStart: 03-17-2017 End: 30-10-6901xcot 1 capsule by mouth once dailyOmeprazole 40 mg Capsule,Delayed Release(Dr/Ec) Discontinued 40 MG PO Daily March 17, 2017 1:00am August 20, 2023 8:17amStart: 29-99-8536iwkk 1 capsule by mouth once daily omeprazole 20 mg Cap-DR = 1 cap(s), Oral, Daily, # 30 cap(s), Refills(s) 0, Control of stomach acidStart Date: 12/26/15 Status: Orderedoseltamivir 75 mg oral capsule (10 sources)Neuraminidase InhibitorStart: 04-19-2024 End: 45-45-2606nadj 1 capsule by mouth once dailyOseltamivir (Tamiflu) 75 mg capsule Discontinued 75 MG PO Daily 10 0 April 19, 2024 1:00am June 01, 2024 8:15amphentermine hydrochloride 37.5 mg oral tablet (5 sources)Sympathomimetic Amine Anorectictake 0.5 tablet by mouth once daily Phentermine HCl 37.5 MG 1/2 tablet Orally Once a day Not-Takingsimvastatin 20 mg oral tablet (20 sources)HMG-CoA Reductase InhibitorStart: 10-28-2009 End: 16-55-9513jtnw 1 tablet by mouth once daily in the eveningSimvastatin 20 mg Tablet Discontinued 20 MG PO Every evening March 17, 2017 1:00am May 09, 2024 9:49amSimvastatin 20 mg TAKE 1 TABLET DAILY IN THE EVENING Active sodium bicarbonate 325 mg oral tablet (20 sources)Start: 01-04-2019 End: 71-45-0358wqqg 1 g by mouth twice dailySodium Bicarbonate 325 mg Tablet Discontinued 1 GM PO Twice daily January 04, 2019 12:00am May 13, 2023 9:19amStart: 01-04-2019 End: 06-06-1091nhkc 1 g by mouth twice dailySodium Bicarbonate Discontinued 1 GM PO Twice daily January 04, 2019 12:00am May 13, 2023 9:19am triamcinolone acetonide 0.25 mg/ml topical cream (20 sources)CorticosteroidStart: 03-17-2017 End: 65-45-4942Wogwavzygqywy Acetonide 0.025 % Cream Discontinued 1 APPLIC TOPICAL Daily March 17, 2017 1:00am August 20, 2023 8:17amubidecarenone 100 mg / vitamin e 5 unt oral capsule (1 source)take 1 capsule by mouth once dailyCo Q 10 100 MG Oral Capsule TAKE 1 CAPSULE Daily Quantity: 0 Refills: 0 Ordered: 23-Sep-2021 DO Activevalsartan 160 mg oral tablet (20 sources)Angiotensin 2 Receptor BlockerStart: 09-22-2023 End: 52-84-9804akcp 1 tablet by mouth once dailyValsartan 160 mg tablet Discontinued 160 MG PO Daily October 20, 2023 12:00am August 09, 2024 8:09am Vitamin B Complex (20 sources)Start: 05-13-2023 End: 81-53-0730ngcl 1 tablet by mouth once dailyVitamin B Complex Discontinued 1 TAB PO Daily May 13, 2023 1:00am October 20, 2023 3:49pmStart: 98-21-0426zdaa 1 tablet by mouth once dailyVitamin B Complex Active 1 TAB PO Daily May 13, 2023 1:00amVitamin B Complex Orally Not-TakingVitamin B Complex Orally ActiveVitamin B Complex CAPS (1 source)Vitamin B Complex CAPS TAKE 1 CAPSULE Daily Quantity: 0 Refills: 0 Ordered: 23-Sep-2021 DO ActiveVitamin B Complex Oral Capsule (1 source)take 1 capsule by mouth once dailyVitamin B Complex Oral Capsule TAKE 1 CAPSULE Daily Quantity: 0 Refills: 0 Ordered: 23-Sep-2021 DO ActiveVitamin B Complex tablet (11 sources)Start: 05-13-2023 End: 68-06-5432dmbz 1 tablet by mouth once dailyVitamin B Complex tablet Discontinued 1 TAB PO Daily May 13, 2023 1:00am October 20, 2023 3:49pm Start: 05-13-2023 End: 74-28-3706iuob 1 tablet by mouth once dailyVitamin B Complex tablet Discontinued 1 TAB PO Daily May 13, 2023 12:00am October 20, 2023 2:49pm vitamin E 400 intl units Cap (6 sources)Start: 41-47-9668cnfg 1 capsule by mouth once dailyvitamin E 400 intl units Cap 400 International_Unit = 1 cap(s), Oral, Daily, Refills(s) 0, Prophylaxis Start Date: 01/31/19 Status: OrderedVitamin K TABS (2 sources)Vitamin K TABS TAKE 1 TABLET DAILY DIRECTED. Quantity: 0 Refills: 0 Ordered: 23-Sep-2021 DO Active Problems Active Problems Problem ClassificationProblemDateDocumented DateEpisodic/ChronicAcquired foot deformities (20 sources)Acquired hammer toe of right foot; Translations: [Other hammer toe(s) (acquired), right foot]ChronicAnxiety disorders (20 sources)Anxiety; Translations: [Anxiety disorder, unspecified]Onset: 01-23-2021 Resolved: 66-58-2924FpgmxtdMyzpfff tract disease (20 sources)Biliary calculus; Translations: [Gangrene of gallbladder]10-16-2018 EpisodicCardiac dysrhythmias (20 sources)Paroxysmal supraventricular tachycardia; Translations: [Supraventricular tachycardia]Onset: 05-10-2021 Resolved: 552892-50-8333GmhgrbwCxydobapsu and other anemia (20 sources)Iron deficiency anemia; Translations: [Iron deficiency anemia, unspecified]Onset: 656458-37-6539IovbhauiRunthirl of white blood cells (20 sources)Leukopenia; Translations: [Decreased white blood cell count, unspecified]Onset: 08-07-2021 Resolved: 92-76-4870PzqcyuoGerypwdfm of lipid metabolism (20 sources)Hyperlipidemia; Translations: [Hyperlipidemia, unspecified]Onset: 05-10-2021 Resolved: 729187-47-8132SfxninkKasfinrdqy disorders (20 sources)Gastroesophageal reflux disease; Translations: [Gastro-esophageal reflux disease without esophagitis]Onset: 05-10-2021 Resolved: 286838-54-1206AgrohrrYzwajrwhq hypertension (20 sources)Hypertensive disorder; Translations: [Essential (primary) hypertension]Onset: 05-10-2021 Resolved: 761445-07-2004AjjffvbCvpko and electrolyte disorders (11 sources)Hypo-osmolality and hyponatremia; Translations: [Acute hypokalemia] Onset: 05-10-2021 Resolved: 16-81-0330HidiwcohGrcwlvjzvzitsi ulcer (except hemorrhage) (13 sources)Multiple gastric ulcers; Translations: [Gastric ulcer, unspecified as acute or chronic, without hemorrhage or perforation]Onset: 02-10-2023 62-54-5074VvxeoatJmfglzftsgmdq symptoms and ill-defined conditions (3 sources)NocturiaOnset: 05-10-2021 Resolved: 28-13-9366XdflvdnqYtob and other crystal arthropathies (20 sources)Gout; Translations: [Gout, unspecified]Onset: 01-27-2023 Resolved: 635915-33-4539FmjjbjaTfnthrxu; including migraine (20 sources)Migraine; Translations: [Migraine variant with headache]Onset: 05-10-2021 Resolved: 555391-95-1771XowcmwlNoiigcog; including migraine (8 sources)Headache; Translations: [Headache]24-28-9763GxgbantoVstcxnqn; including migraine (1 source)Headache; including migraine; Translations: [Headache, unspecified] Onset: 42-20-6670Xazedbkhfpoma mental health disorders (7 sources)Feeling of lump in throat; Translations: [Other somatoform disorders] ChronicMood disorders (17 sources)Depressive disorder; Translations: [Depression]Onset: 02-10-2023 09-24-9324SkxtkusZapngu and vomiting (8 sources)Nausea; Translations: [Nausea]75-81-5937TkstzppdEfhskfztbjd deficiencies (20 sources)Vitamin D deficiency; Translations: [Vitamin D deficiency, unspecified]Onset: 05-10-2021 Resolved: 47-90-2778ArdnczmCezarumhmqwqqp (20 sources)Arthritis; Translations: [Osteoarthritis]Onset: ChronicOther acquired deformities (1 source)Lumbar spondylolisthesis; Translations: [Spondylolisthesis, lumbar region]17-62-4319MoamibmqQyoie aftercare (1 source)Drug therapy finding; Translations: [Other chcf (current) drug therapy]86-64-7580PrxsoahiBziuu bone disease and musculoskeletal deformities (18 sources)Osteopenia; Translations: [Other specified disorders of bone density and structure, unspecified site]92-57-0586UodmztzhIsgbi connective tissue disease (9 sources)Artificial knee joint present; Translations: [Presence of right artificial knee joint]Onset: 900370-21-4106MuxheloMnksl connective tissue disease (1 source)Pain in unspecified handEpisodicOther connective tissue disease (2 sources)Weakness of left hand; Translations: [Other symptoms and signs involving the musculoskeletal system]87-08-1621YhtedbeeHyffb connective tissue disease (1 source)Other symptoms and signs involving the musculoskeletal system; Translations: [Left hand weakness]Onset: 31-22-9432KontqhvlTbjqz ear and sense organ disorders (20 sources)Decreased hearing ; Translations: [Unspecified hearing loss, unspecified ear]ChronicOther ear and sense organ disorders (20 sources)Hearing loss; Translations: [Unspecified hearing loss, unspecified ear]ChronicOther ear and sense organ disorders (14 sources)Unspecified sensorineural hearing loss; Translations: [Sensorineural hearing loss (SNHL) of right ear]08-96-0611AqknuueGjyhj ear and sense organ disorders (7 sources)Sensorineural hearing loss, bilateral; Translations: [Sensorineural hearing loss, bilateral]Onset: 693534-03-5930WkwuaquJnzml ear and sense organ disorders (7 sources)Sensorineural hearing loss in right ear; Translations: [Unspecified sensorineural hearing loss]29-28-3048QrtwpkuOlmac gastrointestinal disorders (1 source)Diarrhea, unspecifiedEpisodicOther gastrointestinal disorders (6 sources)Dysphagia; Translations: [Dysphagia, unspecified]EpisodicOther gastrointestinal disorders (2 sources)Dysphagia, unspecifiedEpisodicOther hereditary and degenerative nervous system conditions (20 sources)Restless legs; Translations: [Restless legs syndrome]Onset: 188616-14-2479FeshqraAkfbw hereditary and degenerative nervous system conditions (20 sources)Restless legs syndrome; Translations: [Restless legs syndrome (RLS)] Onset: 01-23-2021 Resolved: 35-23-9607WdtsievEyjei liver diseases (20 sources)Steatosis of liver; Translations: [Fatty (change of) liver, not elsewhere classified]05-64-2168KtxecylAnkug liver diseases (4 sources)Fatty (change of) liver, not elsewhere classified; Translations: [Other chronic nonalcoholic liver disease]Onset: 10-31-2021 Resolved: 30-26-9246AtooaeoAmhoe lower respiratory disease (20 sources)Nodule of lung; Translations: [Solitary pulmonary nodule]08-07-2023 EpisodicComment on above:saw Dr. Mcrae in the past, has history of stable noncalcified pulmonary nodules bilaterallyOther lower respiratory disease (4 sources)Dyspnea; Translations: [Shortness of breath]59-72-2246ZiigngaqAqhmb lower respiratory disease (1 source)Shortness of breath; Translations: [Shortness of breath]Onset: 51-87-5067PcpwcfmpYmxks nervous system disorders (20 sources)Neuropathy; Translations: [Polyneuropathy, unspecified]08-20-2023 ChronicOther nervous system disorders (5 sources)Polyneuropathy, unspecified; Translations: [Mononeuritis of unspecified site]ChronicOther nervous system disorders (12 sources)Carpal tunnel syndrome of left wrist; Translations: [Carpal tunnel syndrome, left upper limb]92-32-1892TqswihsLtubi nervous system disorders (4 sources)Carpal tunnel syndrome, left upper limb; Translations: [Carpal tunnel syndrome]Onset: 598728-50-7979PzqjvwqBrxkn nervous system disorders (1 source)Carpal tunnel syndrome, unspecified upper limb; Translations: [Carpal tunnel syndrome, unspecified laterality]Onset: 52-89-9978FqlsvrpFqtrd nervous system disorders (20 sources)Skin sensation disturbance; Translations: [Paresthesia of skin] 26-88-6290RterrdlmBowwf nervous system disorders (1 source)Numbness; Translations: [Anesthesia of skin]74-97-0038EiltvudvHbrsp nervous system disorders (11 sources)Paresthesia of hand ; Translations: [Anesthesia of skin]03-01-2024 EpisodicOther nervous system disorders (2 sources)Anesthesia of skin; Translations: [Disturbance of skin sensation] 52-50-4679PkdkmstoKyxtk nutritional; endocrine; and metabolic disorders (6 sources)Obese class I; Translations: [Body mass index (BMI) 32.0-32.9, adult] Onset: 90-41-6877LumoqjfGydol nutritional; endocrine; and metabolic disorders (2 sources)Obesity; Translations: [Obesity, unspecified]ChronicOther nutritional; endocrine; and metabolic disorders (2 sources)Body mass index 30+ - obesity; Translations: [Body mass index (BMI) 35.0-35.9, adult]Onset: 325978-44-5020BpndphzEncpo nutritional; endocrine; and metabolic disorders (7 sources)Weight gain; Translations: [Abnormal weight gain]03-36-7981Susgbaez Other nutritional; endocrine; and metabolic disorders (11 sources)Weight increased; Translations: [Abnormal weight gain]05-13-2023 EpisodicOther nutritional; endocrine; and metabolic disorders (2 sources)Overweight in adulthood with body mass index of 25 or more but less than 30; Translations: [Body mass index (BMI) 29.0-29.9, adult]Onset: 09-22-2023 76-80-8747VvscthwtKldja nutritional; endocrine; and metabolic disorders (1 source)Overweight; Translations: [Overweight]31-64-6950HnrqeaosDuadm nutritional; endocrine; and metabolic disorders (2 sources)Body mass index (BMI) 29.0-29.9, adult; Translations: [Body mass index (BMI) 29.0-29.9, adult]Onset: 55-94-5276LgsmxczgLikro nutritional; endocrine; and metabolic disorders (6 sources)Weight decreased; Translations: [Abnormal weight loss]12-02-2024 EpisodicOther screening for suspected conditions (not mental disorders or infectious disease) (5 sources)Patient encounter status; Translations: [Encounter for screening for malignant neoplasm of colon]Onset: 340713-27-1717LgzqbrbqLqlzekkp; pneumothorax; pulmonary collapse (20 sources)Atelectasis; Translations: [Atelectasis]EpisodicResidual codes; unclassified (20 sources)Insomnia; Translations: [Insomnia, unspecified]65-40-7176Xyivsebp Residual codes; unclassified (3 sources)Insomnia, unspecified; Translations: [Insomnia, unspecified]Episodic Residual codes; unclassified (4 sources)Never smoked tobacco; Translations: [Other specified health status] Onset: 294090-92-8737CxuhuzumAsocqnkz codes; unclassified (1 source)Pain, unspecified; Translations: [Pain]Onset: 68-37-1413Vcrwxpph Residual codes; unclassified (1 source)Postoperative state; Translations: [Other specified postprocedural states]45-70-3484CjndzdkiDbdlbqij codes; unclassified (1 source)Other specified postprocedural states; Translations: [Post-operative state]Onset: 72-65-1814VeafvcsaPoxgguck codes; unclassified (2 sources)Other specified health status; Translations: [Other specified health status]Onset: 46-49-5153NtzdwqzrWrlvjwog codes; unclassified (6 sources)Edema; Translations: [Edema, unspecified]38-76-1400JjegtjmwMturifkdcw arthritis and related disease (20 sources)Rheumatoid arthritis; Translations: [Rheumatoid arthritis, unspecified]Onset: 03-62-8429QyylgsvOvxuvklsenp; intervertebral disc disorders; other back problems (20 sources)Degeneration of lumbar intervertebral disc; Translations: [Other intervertebral disc degeneration, lumbar region]Onset: 508320-12-4794 ChronicSubstance-related disorders (3 sources)Marijuana user; Translations: [Cannabis use, unspecified, uncomplicated]Onset: 854464-35-1468GckzbdnpRfrrzfspryhf (6 sources)Sghwbxjpsv59-53-1076Cunthspryuwl (3 sources)POST PROCEDURE PAIN DIARY - THERAPEUTIC NERVE BLOCK - W6Cmraa: 607410-95-5821Hxavvcdshjcb (1 source)Supraventricular tachycardia, unspecified; Translations: [Supraventricular tachycardia, unspecified]Onset: 07-80-2119Yofmhzbqyfrz (8 sources)Patient encounter status; Translations: [Z12.11 - Encounter for screening for malignant neoplasm ofcolon]Urinary tract infections (20 sources)Cystitis; Translations: [Cystitis, unspecified without hematuria] Onset: 341743-13-4958Kugdhdpy Past or Other Problems Problem ClassificationProblemDateDocumented DateEpisodic/ChronicConditions associated with dizziness or vertigo (2 sources)Dizziness and giddiness; Translations: [Dizziness and giddiness] Onset: 09-12-2021 Resolved: 97-90-4436JujbosbkXsrpattaaz and other anemia (14 sources)Iron deficiency anemia, unspecified; Translations: [Iron deficiency anemia, unspecified]Onset: 05-10-2021 Resolved: 69-49-6341AbwpgkomYephowlc mellitus without complication (20 sources)Hyperglycemia, unspecified; Translations: [Hyperglycemia]Onset: 05-10-2021 Resolved: 64-71-9680AkekulaeJatmpbhtithvg and screening for infectious disease (3 sources)Other specified abnormal immunological findings in serumOnset: 01-23-2021 Resolved: 52-88-5044YldmcnbgEkrbm aftercare (1 source)Other chcf (current) drug therapy; Translations: [Other chcf (current) drug therapy]Onset: 09-87-3889TiuwbpedXrctb bone disease and musculoskeletal deformities (1 source)Other specified disorders of bone density and structure, other site; Translations: [Other specifieddisorders of bone density and structure, other site]Onset: 19-74-1738FpexxoduOncgu connective tissue disease (7 sources)Pain of left hand; Translations: [Pain in left hand]Onset: 07-07-2023 00-20-2762JldlepxpKdair connective tissue disease (7 sources)Pain in right hand; Translations: [Pain in right hand]Onset: 446151-78-5285FbvaezjrRtcot ear and sense organ disorders (7 sources)Sudden hearing loss; Translations: [Sudden idiopathic hearing loss, unspecified ear]Onset: 851921-06-2338WxijqulgGvrdf ear and sense organ disorders (7 sources)Bilateral tinnitus; Translations: [Tinnitus, bilateral]Onset: 335048-50-1343UjejsesuMpxri ear and sense organ disorders (7 sources)Tinnitus; Translations: [Tinnitus, unspecified ear]Onset: 01-27-2023 04-54-0587GevlpifkPeivb nervous system disorders (20 sources)Paresthesia; Translations: [Paresthesia of skin]Onset: 07-07-2023 51-36-1887WemyxpqfFpdwr nervous system disorders (1 source)Paresthesia of skinOnset: 01-23-2021 Resolved: 47-42-9028YsjokykkDaeco nervous system disorders (9 sources)Anesthesia of skin; Translations: [Anesthesia of skin]Onset: 475143-21-6142OosdlwffNjdrf nervous system disorders (1 source)Unspecified disturbances of skin sensation; Translations: [Disturbance of skin sensation]Onset: 50-76-5002SaulykqoXitxu non-traumatic joint disorders (14 sources)Pain in left knee; Translations: [Left knee pain]Onset: 03-01-2024 85-92-2822LfbmlslrWzumq nutritional; endocrine; and metabolic disorders (2 sources)Abnormal weight lossOnset: 01-23-2021 Resolved: 38-77-7136ArbkgeioAjfwp nutritional; endocrine; and metabolic disorders (3 sources)Abnormal weight gain; Translations: [Abnormal weight gain]Onset: 10-31-2021 Resolved: 84-41-3575WtkormsxEgecjvca codes; unclassified (1 source)Bilateral lower limb edema; Translations: [Localized edema]09-22-2023 EpisodicSpondylosis; intervertebral disc disorders; other back problems (13 sources)Cervicalgia; Translations: [Lumbar radiculopathy]Onset: 11-03-2023 EpisodicUnclassified (1 source)Never smoked tobacco; Translations: [Never smoker]Unclassified (2 sources)Onset: 09-22-2023 Resolved: 534666-44-8638Lztlnzttorfe (1 source)Supraventricular tachycardia, unspecified; Translations: [Supraventricular tachycardia, unspecified]Onset: 09-21-2024 Results Test NameValueInterpretationReference RangeFacilityECH echo transthoracicon 48-28-7286NMA echo transthoracicCINCINNAT[facility] [address] Echocardiogram Signed Patient: Suma Scott MR#: [id number] : 1945 Acct:[id number] Age/Sex: 79 / F ADM Date: 01/09/25 Loc: Room: Type: [facility] Attending Dr: Mayco Velasquez DO Ordering Provider: Mayco Velasquez DO Date of Service: 01/09/25/ ECH/ECH echo transthoracic: CA SOB Copies to: DO Deb Angulo MD, FACC RDCS, RVT BSA: 1.7 m2 BP: 152/88 mmHg HR: 65 Reason For Study: CA SOB History: RA Interpretation Summary The left ventricular size, thickness and function are normal Ejection Fraction = 60-65%. A variety of Doppler measurements indicate impaired left ventricular relaxation, which is associated with grade I/IV or mild diastolic dysfunction. Trace aortic regurgitation. There is no prior echocardiogram noted for this patient. Procedure/Quality: A two-dimensional transthoracic echocardiogram with color flow and Doppler was performed. The study was technically good in quality. There is no prior echocardiogram noted for this patient. Left Ventricle: The left ventricular size, thickness and function are normal. Ejection Fraction = 60-65%. A variety of Doppler measurements indicate impaired left ventricular relaxation, which is associated with grade I/IV or mild diastolic dysfunction. Left Atrium: The left atrium appears normal in size. The atrial septum appears normal. Right Atrium: The right atrium appears normal in size. Right Ventricle: The right ventricular size, thickness and function are normal. Aortic Valve: The aortic valve is trileaflet. Trace aortic regurgitation. Mitral Valve: The mitral valve is mildly sclerotic. There is trace mitral regurgitation. Tricuspid Valve: The tricuspid valve is normal in structure. There is trace tricuspid regurgitation. Pulmonic Valve: The pulmonic valve is not well seen, but is grossly normal. Arteries: The aortic root is normal size. Pericardium/Pleura: No pericardial effusion seen. There is no pleural effusion. IVC/Hepatic Veins: The IVC is normal in size with an inspiratory collapse of greater then 50%, suggesting normal right atrial pressure. Miscellaneous: No thrombus, vegetation or mass is seen. Measurements with Normals IVSd: 0.92 cm (0.7-1.1 cm)LVIDd: 3.8 cm (3.7-5.4 cm) LVPWd: 0.89 cm (0.7-1.1 cm)LVIDs: 2.7 cm (2.3-3.6 cm) LA dimension: 3.5 cm(2.3-4.0 cm)Ao root diam: 2.9 cm(2.0-3.6 cm) Doppler with Normals RVSP(TR): 27.5 mmHg (18-35mmHg) LV V1 max: 93.4 cm/sec (0.7-1.7m/s)MV E max jose: 79.3 cm/sec(0.8-1.3m/s) MV A max jose: 94.7 cm/sec(0.0-0.0m/s) MV E/A: 0.84 (<1.5) MMode/2D Measurements Calculations TAPSE: 2.6 cm FS: 28.1 % Ao root area: LVOT diam: 1.8 cm RV S Jose: EDV(Teich): 61.0 ml 6.4 cm2 LVOT area: 2.7 cm2 14.8 cm/sec ESV(Teich): 27.4 ml EF(Teich): 55.1 % __ LVLd ap4: 7.0 cm SV(MOD-sp4): 25.1 ml LAV(MOD-sp4): LA A2 area: 15.9 cm2 EDV(MOD-sp4): 36.7 ml 44.1 ml LAV(MOD-sp2): LA A4 area: 15.1 cm2 LVLs ap4: 5.9 cm 37.9 ml LA length (vol): ESV(MOD-sp4): 5.0 cm 19.0 ml LA vol: 40.6 ml EF(MOD-sp4): LA vol index: 56.9 % 24.4 ml/m2 __ RA Volume: 30.3 mlRA Volume Index: 18.3 ml/m2 Doppler Measurements Calculations MV dec time: 0.22 sec MV V2 max: E/E' lat: 9.0 Ao V2 max: 90.5 cm/sec E/E' med: 12.4 152.0 cm/sec MV max PG: Ao max P.0 mmHg 9.2 mmHg MV V2 mean: Ao mean P.2 cm/sec 5.0 mmHg MV mean PG: Ao V2 mean: 0.96 mmHg 99.5 cm/sec MV V2 VTI: 37.9 cm Ao V2 VTI: 33.3 cm MVA(VTI): 1.6 cm2 CHRISTIANO(I,D): 1.8 cm2 CHRISTIANO(V,D): 1.6 cm2 __ AI max jose: LV V1 max PG: MR max jose: TV max P.2 cm/sec 3.5 mmHg 622.5 cm/sec 24.0 mmHg AI max P.1 mmHg LV V1 mean PG: MR max PG: AI dec slope: 2.0 mmHg 155.1 mmHg 207.3 cm/sec2 LV V1 mean: AI P1/2t: 514.6 msec 66.0 cm/sec LV V1 VTI: 22.4 cm __ TR max jose: 247.3 cm/sec TR max P.5 mmHg RAP systole: 3.0 mmHg Transcribed By: EMILY Performed At: 01/09/25 0751 Signed By: Deb Zamora MD, [facility] 01/09/25 0951[facility] Physician GroupAppearance of UrineOrdered By: Mayco Velasquez on 23-94-3523Fkyxutpidg (U) ClearNormalClearAdena Pike Medical CenterComment on above:Order Comment: Name Collection Type:: Clean-Voided MidstreamPerformed By: #### CUU, UA #### [facility] [address] [place] [address] USABilirubin Test strip Ql (U)Ordered By: Mayco Velasquez on 65-36-0028Euvviqbfc Ql (U)NegativeNegativeAdena Pike Medical CenterColor of Urine by AutoOrdered By: Mayco Velasquez on 23-21-1379Tftpq (U)ColorlessNormal YellowAdena Pike Medical CenterComment on above:Order Comment: Name Collection Type:: Clean-Voided MidstreamPerformed By: #### CUU, UA #### [facility] [address] [place], [place] [id number] USAGlucose [Mass/volume] in Urine by Test stripOrdered By: Mayco Velasquez on 40-52-5680Bmvjwbm Test strip (U) [Mass/Vol]Normal mg/dLNormal [facility] CenterHemoglobin Test strip Ql (U)Ordered By: Mayco Velasquez on 55-20-4677Wgxghilhyt Ql (U)NegativeNegMercer County Community HospitalKetones [Presence] in Urine by Test stripOrdered By: Mayco Velasquez on 52-97-8405Vmkgxxz Ql (U)NegativeNormalNegativeAdena Pike Medical Center Comment on above:Order Comment: Name Collection Type:: Clean-Voided Midstream Performed By: #### CUU, UA #### [facility] [address] [place] [id number] USALeukocyte esterase [Presence] in Urine by Test strip Ordered By: Mayco Velasquez on 64-49-3472Bbexpqguj esterase Test strip Ql (U) NegativeNormalNegMercer County Community HospitalComment on above:Order Comment: Name Collection Type:: Clean-Voided MidstreamPerformed By: #### CUU, UA #### [address] [address] USANitrite Test strip Ql (U)Ordered By: Mayco Velasquez on 76-99-6175Nnxrrlh Ql (U)NegativeNegMercer County Community HospitalProtein Test strip (U) [Mass/Vol]Ordered By: Mayco Velasquez on 96-10-5474Azjxqlz (U) [Mass/Vol]NegativeSt. Anthony's Hospitalpecific gravity Test strip (U) [Rel density]Ordered By: Mayco Velasquez on 34-24-4490Mjwsttgg gravity (U) [Rel density]1.0041.001-1.030Adena Pike Medical CenterUrinalysison 20-44-4031Przfdzarw,UrineNegativeNormalNegativeThe [facility] Comment on above:Order Comment: Name Collection Type:: Clean-Voided Midstream Performed By: #### CUU, UA #### [address] [address] USAGlucose Ql (U)NormalNormalNormalThe [facility] Physician GroupComment on above:Order Comment: Name Collection Type:: Clean-Voided MidstreamPerformed By: #### CUU, UA #### [address] [address] USANitrite,UrineNegativeNormalNegativeAdventhealth Brandon Er Physician GroupComment on above:Order Comment: Name Collection Type:: Clean-Voided MidstreamPerformed By: #### CUU, UA #### [place] [address] USAOccult Blood,UrineNegativeNormalNegativeThe [facility] Physician GroupComment on above:Order Comment: Name Collection Type:: Clean- Voided MidstreamResult Comment: PERFORMED BY: [place] [address] PATHOLOGIST DERMATOLOGY TECHNICIAN ROHIT DONALDSON M.D.Performed By: #### CUU, UA #### [place] [address] USAProtein,UrineNegativeNormalNegativeThe [facility] Physician GroupComment on above:Order Comment: Name Collection Type:: Clean-Voided MidstreamPerformed By: #### CUU, UA #### [place] [address] USASpecificy [place],Urine1.031Ntolap0.001-1.030[facility] Er Physician GroupComment on above:Order Comment: Name Collection Type:: Clean- Voided MidstreamPerformed By: #### CUU, UA #### [place] [address] USAUrobilinogen,UrineNormalNormalNormalThe [facility] Physician GroupComment on above:Order Comment: Name Collection Type:: Clean- Voided MidstreamPerformed By: #### CUU, UA #### [place] [address] USAUrine Cultureon 97-85-3307Qeapjahh identified Cx Nom (U)No Growth 2 Days PERFORMED BY: [place] [address] PATHOLOGIST DERMATOLOGY TECHNICIAN ROHIT DONALDSON M.D.NormalAdventhealth Brandon Er Physician GroupComment on above: Performed By: #### CUU, UA #### [place] [address] USAUrine cultureOrdered By: Mayco Velasquez on 12-05-2024 Bacteria identified Cx Nom (U)No Growth 2 DaysAdena Pike Medical Center Urobilinogen Test strip (U) [Mass/Vol]Ordered By: Mayco Velasquez on 12-05-2024 Urobilinogen (U) [Mass/Vol]Normal mg/dLNoalAdena Pike Medical CenterpH of Urine by Test stripOrdered By: Mayco Velasquez on 60-70-0315vK (U)6.5 [pH] Normal5.0-9.0Adena Pike Medical CenterComment on above:Order Comment: Name Collection Type:: Clean-Voided MidstreamPerformed By: #### CUU, UA #### [facility] [address] [place] [address] USABlood Cultureon 26-63-4147Cjmrukup identified Cx Nom (Bld) NO GROWTH 5 DAYS PERFORMED BY: [place] [address] PATHOLOGIST DERMATOLOGY TECHNICIAN ROHIT DONALDSON M.D.[facility] Physician GroupComment on above: Performed By: #### CUBLD ####[place] [id number] USABacteria identified Cx Nom (Bld)Comment rule out sepsis / blood culture x2 NO GROWTH 5 DAYS PERFORMED BY: [place] [address] PATHOLOGIST DERMATOLOGY TECHNICIAN ROHIT DONALDSON M.D.[facility] Physician GroupComment on above: Performed By: #### CUBLD ####[place] [id number] USALaboratory - Microbiology and Antimicrobial susceptibilityOrdered By: Mayco Velasquez on 60-91-3441Oeldrijl identified Cx Nom (Bld)NO GROWTH 5 DAYSAdena Pike Medical CenterBacteria identified Cx Nom (Bld)NO GROWTH 5 DAYSAdena Pike Medical CenterA1C with Estimated Average Gluon 53-57-2114Mujrcen [Mass/Vol]111 mg/dLNoCone Health Alamance Regional Physician GroupComment on above:Result Comment: PERFORMED BY: [place] [address] PATHOLOGIST DERMATOLOGY TECHNICIAN ROHIT DONALDSON M.D.Performed By: #### CMP, [id number], A1C WTH eA, CBC, CUU, UA, FE and TIBC, LIPID, BRANDIN #### [facility] [address] #### INSULIN #### [facility] ,Alanine aminotransferase [Enzymatic activity/volume] in Serum or PlasmaOrdered By: Mayco Velasquez on 87-72-2803CTY [Catalytic activity/Vol]26 U/LNormal7-52 Ad[facility]ike Medical CenterComment on above:Order Comment: FASTING.JKW Performed By: #### CMP, [id number], A1C WTH eA, CBC, CUU, UA, FE and TIBC, LIPID, BRANDIN ####[facility]#### INSULIN ####[facility] ,Albumin [Mass/volume] in Serum or Plasma by Bromocresol green (BCG) dye binding methoOrdered By: Mayco Velasquez on 62-33-9837Vukdlne BCG dye [Mass/Vol]4.7 g/dL3.5-5.7FMercy Health St. Elizabeth Boardman HospitalAlkaline phosphatase [Enzymatic activity/volume] in Serum or PlasmaOrdered By: Mayco Velasquez on 01-86-6686AII [Catalytic activity/Vol]88 U/GDwpdbg93-826 Ad[facility]ike Medical CenterComment on above:Order Comment: FASTING.JKW Performed By: #### CMP, [id number], A1C WTH eA, CBC, CUU, UA, FE and TIBC, LIPID, BRANDIN ####[place] [address] [place] [address] [place]#### INSULIN ####[facility] ,Appearance of UrineOrdered By: Mayco Velasquez on 90-05-0117Xsyvulxvwt (U)ClearNormToledo HospitalComment on above:Order Comment: Name Collection Type:: Clean-Voided MidstreamPerformed By: #### CMP, [id number], A1C WTH eA, CBC, CUU, UA, FE and TIBC, LIPID, BRANDIN #### [facility] [address] #### INSULIN #### [facility] ,Aspartate aminotransferase [Enzymatic activity/volume] in Serum or Plasma Ordered By: Mayco Velasquez on 53-80-4382WCA [Catalytic activity/Vol]27 U/LNormal 13-39Adena Pike Medical CenterComment on above:Order Comment: FASTING.JKWPerformed By: #### CMP, [id number], A1C WTH eA, CBC, CUU, UA, FE and TIBC, LIPID, BRANDIN ####[facility] [address]#### INSULIN ####[facility] ,Basophils [#/volume] in Blood by Automated countOrdered By: Mayco Velasquez on 02-49-8904Qsdnmtjqx (Bld) [#/Vol]0.1 10*3/uLNormal0.0-0.2FMercy Health St. Elizabeth Boardman HospitalComment on above:Result Comment: PERFORMED BY: [place] [address] PATHOLOGIST DERMATOLOGY TECHNICIAN ROHIT DONALDSON M.D.Performed By: #### CMP, [id number], A1C WTH eA, CBC, CUU, UA, FE and TIBC, LIPID, BRANDIN #### [facility] [address] [place] [address] [place] #### INSULIN #### [facility] ,Basophils/100 leukocytes in Blood by Automated countOrdered By: Mayco Velasquez on 40-46-0467Tyzsfuwdr/100 WBC (Bld)1.3 %Normal.[facility] Comment on above:Performed By: #### CMP, [id number], A1C WTH eA, CBC, CUU, UA, FE and TIBC, LIPID, BRANDIN #### [facility] [address] [place] [address] #### INSULIN #### [facility] ,Bilirubin Test strip Ql (U)Ordered By: Mayco Velasquez on 70-53-0801Gtkwyadqo Ql (U)NegativeNegativeAdena Pike Medical CenterBilirubin.total [Mass/volume] in Serum or PlasmaOrdered By: Mayco Velasquez on 54-63-7409Nerxwivwo [Mass/Vol]0.6 mg/dLNormal0.3-1.0Adena Pike Medical CenterComment on above:Order Comment: FASTING.JKWPerformed By: #### CMP, [id number], A1C WTH eA, CBC, CUU, UA, FE and TIBC, LIPID, BRANDIN ####[address]#### INSULIN ####[facility] ,Blood estimated average glucose determination by estimation from glycated hemoglobin Ordered By: Mayco Velasquez on 25-62-5704Itackgv glucose Estimated from glycated hemoglobin (Bld) [Mass/Vol]111 mg/dLAdena Pike Medical CenterCalcium [Mass/volume] in Serum or PlasmaOrdered By: Mayco Velasquez on 83-56-6085Lwsgvzb [Mass/Vol]9.6 mg/dLNormal8.6-10.3FMercy Health St. Elizabeth Boardman HospitalComment on above:Order Comment: FASTING.JKWPerformed By: #### CMP, [id number], A1C WTH eA, CBC, CUU, UA, FE and TIBC, LIPID, BRANDIN ####[place] [address] [place]#### INSULIN ####[facility] ,Carbon dioxide, total [Moles/volume] in Serum or PlasmaOrdered By: Mayco Velasquez on 48-16-0185DM4 [Moles/Vol]29.7 mmol/EAdzwyk03.0-31.0Adena Pike Medical CenterComment on above:Order Comment: FASTING.JKWPerformed By: #### CMP, [id number], A1C WTH eA, CBC, CUU, UA, FE and TIBC, LIPID, BRANDIN ####[place] [address] [place]#### INSULIN ####[facility] ,Chloride [Moles/volume] in Serum or PlasmaOrdered By: Mayco Velasquez on 72-76-0878Rnzsmxjf [Moles/Vol]104 mmol/NMvyftf18-587ZnhgmpiidAdena Pike Medical CenterComment on above:Order Comment: FASTING.JKWPerformed By: #### CMP, [id number], A1C WTH eA, CBC, CUU, UA, FE and TIBC, LIPID, BRANDIN ####[facility]#### INSULIN ####[facility] ,Cholesterol [Mass/volume] in Serum or Plasma Ordered By: Mayco Velasquez on 41-77-2996Gvghxdosppy [Mass/Vol]146 mg/dLNormal 140-200Aden[facility]ike Medical CenterComment on above:Chol less than 200 mg/dl low riskChol 201-239 mg/dl borderline riskChol 240 mg/dl and greater high riskOrder Comment: FASTING.JKWResult Comment: Chol less than 200 mg/dl low risk Chol 201-239 mg/dl borderline risk Chol 240 mg/dl and greater high riskPerformed By: #### CMP, [id number], A1C WTH eA, CBC, CUU, UA, FE and TIBC, LIPID, BRANDIN ####[address]#### INSULIN ####[facility] , Cholesterol in HDL [Mass/volume] in Serum or PlasmaOrdered By: Mayco Velasquez on 03-29-9475Ifrlfjadktz in HDL [Mass/Vol]57 mg/vMJcpusu87-27SpzofyqioAdena Pike Medical CenterComment on above:HDL CHOL ATP-III CLASSIFICATION Cardiovascular RiskHDL > or equal to 60 mg/dL LOWHDL < 40 mg/dL HIGHOrder Comment: FASTING.JKW Result Comment: HDL CHOL ATP-III CLASSIFICATION Cardiovascular Risk HDL > or equal to 60 mg/dL LOW HDL < 40 mg/dL HIGHPerformed By: #### CMP, [id number], A1C WTH eA, CBC, CUU, UA, FE and TIBC, LIPID, BRANDIN ####[facility] [address] [place] [address] [place]#### INSULIN ####[facility] ,Cholesterol in LDL Calc [Mass/Vol]Ordered By: Mayco Velasquez on 35-24-2583Xrgiagirhoi in LDL [Mass/Vol]64 mg/dL0-100Adena Pike Medical CenterComment on above:LDL ATP III CLASSIFICATIONLDL less than 100 mg/dL OptimalLDL 100-129 mg/dL Near or above tpplmuwTPA786-179 mg/dL Borderline highLDL 160-189 mg/dL HighLDL greater than 189 mg/dL Very highCholesterol in VLDL Calc [Mass/Vol]Ordered By: Mayco Velasquez on 21-33-9735Yzxcnhffzrk in VLDL [Mass/Vol]25 mg/dLAdena Pike Medical CenterColor of Urine by AutoOrdered By: Mayco Velasquez on 76-40-6278Cjhkf (U)Light-yellowNormalYellowAdena Pike Medical CenterComment on above: Order Comment: Name Collection Type:: Clean-Voided MidstreamPerformed By: #### CMP, [id number], A1C WTH eA, CBC, CUU, UA, FE and TIBC, LIPID, BRANDIN #### [facility] [address] [place] [address] [place] #### INSULIN #### [facility] ,Complete Blood Count Auto Diffon 06-84-0969Epys Corpuscular HGB Conc33.9 g/dL Jfzern43.0-35.0The [facility] Physician GroupComment on above:Performed By: #### CMP, [id number], A1C WTH eA, CBC, CUU, UA, FE and TIBC, LIPID, BRANDIN #### [facility] [address] [place] [address] [place] #### INSULIN #### [facility] ,NRBC%0.1 /100{WBC}Normal0-0.5The [facility] Physician GroupComment on above: Performed By: #### CMP, [id number], A1C WTH eA, CBC, CUU, UA, FE and TIBC, LIPID, BRANDIN #### [facility] [address] [place] [address] [place] #### INSULIN #### [facility] ,White Blood Count4.8 [CFU]/mLNormal3.8-11.6The [facility] Physician GroupComment on above:Performed By: #### CMP, [id number], A1C WTH eA, CBC, CUU, UA, FE and TIBC, LIPID, BRANDIN #### [place] [address] [place] #### INSULIN #### [facility] ,Comprehensive Metabolic Panelon 81-16-3682Hdqfdwh [Mass/Vol]4.7 g/dLNormal 3.5-5.7The [facility] Physician [facility] Medical CenterComment on above:Order Comment: FASTING.JKW Performed By: #### CMP, [id number], A1C WTH eA, CBC, CUU, UA, FE and TIBC, LIPID, BRANDIN ####[place] [address] [address]#### INSULIN ####[facility] ,GFR/1.73 sq M.predicted MDRD (S/P/Bld) [Vol rate/Area]mL/min/{1.73_m2}NormalThe [facility] Physician [facility] Medical CenterComment on above:Order Comment: FASTING.JKWPerformed By: #### CMP, [id number], A1C WTH eA, CBC, CUU, UA, FE and TIBC, LIPID, BRNADIN ####[place] [address] [place]#### INSULIN ####[facility] , Creatinine [Mass/volume] in Serum or PlasmaOrdered By: Mayco Velasquez on 62-48-6389Gjgtuidqwl [Mass/Vol]0.65 mg/dLNormal0.60-1.20A[facility] Medical CenterComment on above:Order Comment: FASTING.JKWPerformed By: #### CMP, [id number], A1C WTH eA, CBC, CUU, UA, FE and TIBC, LIPID, BRANDIN ####[facility] [address] [place] [address] [place]#### INSULIN ####[facility] ,Eosinophils [#/volume] in Blood by Automated count Ordered By: Mayco Velasquez on 76-95-8225Mljemkpscvl (Bld) [#/Vol]0.2 10*3/uLNormal 0.0-0.45A[facility] Medical CenterComment on above:Performed By: #### CMP, [id number], A1C WTH eA, CBC, CUU, UA, FE and TIBC, LIPID, BRANDIN #### [facility] [address] [place] [address] [place] #### INSULIN #### [facility] ,Eosinophils/100 leukocytes in Blood by Automated countOrdered By: Mayco Velasquez on 51-21-5899Qjyapfkkxbp/100 WBC (Bld)5.2 %Normal.[facility] Medical CenterComment on above:Performed By: #### CMP, [id number], A1C WTH eA, CBC, CUU, UA, FE and TIBC, LIPID, BRANDIN #### [facility] [address] [place] [address] [place] #### INSULIN #### [facility] ,Erythrocyte distribution width [Ratio] by Automated countOrdered By: Mayco Velasquez on 49-67-5915Ynqsxmpqlzb distribution width (RBC) [Ratio]13.2 %Normal 11.9-15.3FMercy Health St. Elizabeth Boardman HospitalComment on above:Performed By: #### CMP, [id number], A1C WTH eA, CBC, CUU, UA, FE and TIBC, LIPID, BRANDIN #### [facility] [address] [place] [address] [place] #### INSULIN #### [facility] ,Erythrocytes [#/volume] in Blood by Automated countOrdered By: Mayco Velasquez on 52-78-2002RKP (Bld) [#/Vol]5.04 10*6/uLHigh3.60-5.00A[facility] Medical CenterComment on above:Performed By: #### CMP, [id number], A1C WTH eA, CBC, CUU, UA, FE and TIBC, LIPID, BRANDIN #### [facility] [address] [place] [address] [place] #### INSULIN #### [facility] ,Ferritin [Mass/volume] in Serum or PlasmaOrdered By: Mayco Velasquez on 11-21-2024 Ferritin [Mass/Vol]68.8 ng/sSHgraec19.0-306.8[facility] Comment on above:Order Comment: FASTING.JKWPerformed By: #### CMP, [id number], A1C WTH eA, CBC, CUU, UA, FE and TIBC, LIPID, BRANDIN ####[place] [address] [place]#### INSULIN ####[facility] ,Glomerular filtration rate [Volume Rate/Area] in Serum, Plasma or Blood by CreatinineOrdered By: Mayco Velasquez on 43-45-8421Iyasjlnnef filtration rate [Volume Rate/Area] in Serum, Plasma or Blood by Creatinine> 60.0 mL/Min [facility] Medical CenterGlucose [Mass/volume] in Serum or PlasmaOrdered By: Mayco Velasquez on 67-55-4099Rhfvysw [Mass/Vol]99 mg/jMNgzxid56-391DhfiwkfxeAdena Pike Medical CenterComment on above:ADA recommended reference rangeRandom Glucose Reference Range is dependent on time and content of last meal. Glucose of more than 200 mg/dL in a nonstressed, ambulatory subject supports the diagnosisof Diabetes Mellitus.Order Comment: FASTING.JKWResult Comment: Random Glucose Reference Range is dependent on time and content of last meal. Glucose of more than 200 mg/dL in a nonstressed, ambulatory subject supports the diagnosis of Diabetes Mellitus. ADA recommended reference rangePerformed By: #### CMP, [id number], A1C WTH eA, CBC, CUU, UA, FE and TIBC, LIPID, BRANDIN ####[place] [address] [place] [address] [place]#### INSULIN ####[facility] ,Glucose [Mass/volume] in Urine by Test stripOrdered By: Mayco Velasquez on 11-21-2024 Glucose Test strip (U) [Mass/Vol]Normal mg/dLNormalAdena Pike Medical CenterHematocrit [Volume Fraction] of Blood by Automated countOrdered By: Mayco Velasquez on 71-64-8333Rrlcdnukcs (Bld) [Volume fraction]42.9 %Ysbbws61.0-46.4 [facility] Medical CenterComment on above:Performed By: #### CMP, [id number], A1C WTH eA, CBC, CUU, UA, FE and TIBC, LIPID, BRANDIN #### [facility] [address] [place] [address] [place] #### INSULIN #### [facility] ,Hemoglobin A1c/Hemoglobin.total in BloodOrdered By: Mayco Velasquez on 11-21-2024 HbA1c (Bld) [Mass fraction]5.5 %Normal4.3-5.6FMercy Health St. Elizabeth [facility] Hospital Comment on above:Increased risk for diabetes: 5.7 - 6.4diabetes: >6.4glycemic control for adults with diabetes: <7.0Result Comment: Increased risk for diabetes: 5.7 - 6.4 diabetes: >6.4 glycemic control for adults with diabetes: <7.0Performed By: #### CMP, [id number], A1C WTH eA, CBC, CUU, UA, FE and TIBC, LIPID, BRANDIN #### [facility] [address] [place] [address] [place] #### INSULIN #### [facility] ,Hemoglobin Test strip Ql (U)Ordered By: Mayco Velasquez on 42-17-8851Txypoqclcn Ql (U)NegativeNegativeAdena Pike Medical CenterHemoglobin [Mass/volume] in BloodOrdered By: Mayco Velasquez on 03-42-9057Dxitxvmjdm (Bld) [Mass/Vol]14.5 g/dL Owukiz74.8-15.4FMercy Health St. Elizabeth Boardman HospitalComment on above:Performed By: #### CMP, [id number], A1C WTH eA, CBC, CUU, UA, FE and TIBC, LIPID, BRANDIN #### [facility] [address] #### INSULIN #### [facility] ,Insulinon 77-09-6493Nnaouyl76.2 u[iU]/mLNormal2.6-24.9The [facility] Of HarmarvilleComment on above:Result Comment: Performed at: - [facility], [place], [place] [id number] Sizing Machine Tender: Jourdan Gonzales PhD, Phone: [phone] PERFORMED BY: [place] [address] PATHOLOGIST DERMATOLOGY TECHNICIAN ROHIT DONALDSON M.D.Performed By: #### CMP, [id number], A1C WTH eA, CBC, CUU, UA, FE and TIBC, LIPID, BRANDIN ####[address]#### INSULIN ####[facility] ,Iron [Mass/volume] in Serum or PlasmaOrdered By: Mayco Velasquez on 85-95-4526Jwqi [Mass/Vol]126 ug/cAXiqmgz30-354GzeefugusAdena Pike Medical CenterComment on above:Order Comment: FASTING.JKWPerformed By: #### CMP, [id number], A1C WTH eA, CBC, CUU, UA, FE and TIBC, LIPID, BRANDIN ####[address]#### INSULIN ####[facility] ,Iron and TIBC Profileon 11-21-2024% Iron Igrwcazjmr44.8 %Arebyj79-20Jpd [facility] Of HarmarvilleComment on above:Order Comment: FASTING.JKWPerformed By: #### CMP, [id number], A1C WTH eA, CBC, CUU, UA, FE and TIBC, LIPID, BRANDIN ####[address]#### INSULIN ####[facility] ,Total Iron Binding Orgcpufd731 ug/pCEjgbsu957-981Qir Firelands Physician GroupComment on above:Order Comment: [email or web address].JKWPerformed By: #### CMP, [id number], A1C WTH eA, CBC, CUU, UA, FE and TIBC, LIPID, BRANDIN ####[facility] [id number]#### INSULIN ####[facility] ,Ketones [Presence] in Urine by Test strip Ordered By: Mayco Velasquez on [id number] Ql (U)NegativeNormalNegDayton Children's HospitalComment on above:Order Comment: Name Collection Type:: Clean-Voided MidstreamPerformed By: #### CMP, [id number], A1C WTH eA, CBC, CUU, UA, FE and TIBC, LIPID, BRANDIN #### [facility] [address] #### INSULIN #### [facility] ,Leukocyte esterase [Presence] in Urine by Test stripOrdered By: Mayco Velasquez on 45-87-6841Zirilnorl esterase Test strip Ql (U)NegativeNormalNegMercer County Community HospitalComment on above:Order Comment: Name Collection Type:: Clean-Voided MidstreamPerformed By: #### CMP, [id number], A1C WTH eA, CBC, CUU, UA, FE and TIBC, LIPID, BRANDIN #### [facility] [address] [place] [address] [place] #### INSULIN #### [facility] ,Leukocytes [#/volume] corrected for nucleated erythrocytes in Blood by Automated counOrdered By: Mayco Velasquez on 55-79-9228VJQ corrected for nucl RBC Auto (Bld) [#/Vol]4.8 10*3/uL3.8-11.[facility] HospitalLeukocytes [#/volume] in Blood by Automated countOrdered By: Mayco Velasquez on 88-39-5537AAF (Bld) [#/Vol]4.8 10*3/uLNormal3.8-11.6FMercy Health St. Elizabeth Boardman HospitalComment on above:Performed By: #### CMP, [id number], A1C WTH eA, CBC, CUU, UA, FE and TIBC, LIPID, BRANDIN #### [facility] [address] [place] [address] [place] #### INSULIN #### [facility] ,Lipid Panelon 94-94-9463ZJA Cholesterol,Nflrahitam49 mg/dLNormal0-100The [facility] Physician GroupComment on above:Order Comment: FASTING.JKWResult Comment: LDL ATP III CLASSIFICATION LDL less than 100 mg/dL Optimal LDL 100-129 mg/dL Near or above optimal LDL 130-159 mg/dL Borderline high LDL 160-189 mg/dL High LDL greater than 189 mg/dL Very highPerformed By: #### CMP, [id number], A1C WTH eA, CBC, CUU, UA, FE and TIBC, LIPID, BRANDIN ####[place] [address] [place]#### INSULIN ####[facility] , Triglyceride w/Wgpkqg854 mg/dLNormal0-149The [facility] Physician GroupComment on above:Order Comment: FASTING.JKWResult Comment: TRIG ATP III CLASSIFICATION TRIG less than 150 mg/dL Normal TRIG 150-199 mg/dL Borderline high TRIG 200-500 mg/dL High TRIG greater than 500 mg/dL Very high Standard traceable to the Center for Disease Conrtrol and Prevention (CDC) test method.Performed By: #### CMP, [id number], A1C WTH eA, CBC, CUU, UA, FE and TIBC, LIPID, BRANDIN ####[facility] [place] [address] [place]#### INSULIN ####[facility] ,VLDL SSBEQBSUWAJ88 mg/dLNormalThe [facility] Physician GroupComment on above:Order Comment: FASTING.JKWPerformed By: #### CMP, [id number], A1C WTH eA, CBC, CUU, UA, FE and TIBC, LIPID, BRANDIN ####[facility] [place] [address] [place]#### INSULIN ####[facility] ,Lymphocytes [#/volume] in Blood by Automated countOrdered By: Mayco Velasquez on 11-21-2024 Lymphocytes (Bld) [#/Vol]1.9 10*3/uLNormal1.00-4.8A[facility]ike Medical CenterComment on above:Performed By: #### CMP, [id number], A1C WTH eA, CBC, CUU, UA, FE and TIBC, LIPID, BRANDIN #### [facility] [address] [place] [address] [place] #### INSULIN #### [facility] ,Lymphocytes/100 leukocytes in Blood by Automated countOrdered By: Mayco Velasquez on 53-36-6340Wnifprcvcmu/100 WBC (Bld)39.1 %Normal.[facility]ike Medical CenterComment on above:Performed By: #### CMP, [id number], A1C WTH eA, CBC, CUU, UA, FE and TIBC, LIPID, BRANDIN #### [place] [address] [place] #### INSULIN #### [facility] ,MCH [Entitic mass] by Automated countOrdered By: Mayco Velasquez on 84-14-2842NZZ (RBC) [Entitic mass]28.8 ezUuusuw59.7-34.3FMercy Health St. [facility] Hospital Comment on above:Performed By: #### CMP, [id number], A1C WTH eA, CBC, CUU, UA, FE and TIBC, LIPID, BRANDIN #### [place] [address] [place] #### INSULIN #### [facility] ,MCHC Auto (RBC) [Mass/Vol]Ordered By: Mayco Velasquez on 33-14-8125ARTT (RBC) [Mass/Vol]33.9 g/dL32.0-35.0Adena Pike Medical CenterMCV [Entitic volume] by Automated countOrdered By: Mayco Velasquez on 02-41-4734FUZ (RBC) [Entitic vol]85.0 dYNxapxm10-688BvpuunuhtAdena Pike Medical CenterComment on above:Performed By: #### CMP, [id number], A1C WTH eA, CBC, CUU, UA, FE and TIBC, LIPID, BRANDIN #### [address] #### INSULIN #### [facility] ,Monocytes [#/volume] in Blood by Automated countOrdered By: Mayco Velasquez on 76-64-7626Eckkpjxmu (Bld) [#/Vol]0.6 10*3/uLNormal0.0-0.8A[facility]ike Medical CenterComment on above:Performed By: #### CMP, [id number], A1C WTH eA, CBC, CUU, UA, FE and TIBC, LIPID, BRANDIN #### [place] [address] [place] #### INSULIN #### [facility] ,Monocytes/100 leukocytes in Blood by Automated countOrdered By: Mayco Velasquez on 04-83-3687Muenujhwb/100 WBC (Bld)12.2 %Normal.[facility] Comment on above:Performed By: #### CMP, [id number], A1C WTH eA, CBC, CUU, UA, FE and TIBC, LIPID, BRANDIN #### [address] #### INSULIN #### [facility] ,Neutrophils [#/volume] in Blood by Automated countOrdered By: Mayco Velasquez on 28-48-9598Qgkdeanghss (Bld) [#/Vol]2.0 10*3/uLNormal1.8-7.7FMercy Health St. Elizabeth Boardman HospitalComment on above:Performed By: #### CMP, [id number], A1C WTH eA, CBC, CUU, UA, FE and TIBC, LIPID, BRANDIN #### [place] [address] [place] #### INSULIN #### [facility] ,Neutrophils/100 leukocytes in Blood by Automated countOrdered By: Mayco Velasquez on 10-57-5136Gtnawvygtfx/100 WBC (Bld)42.2 %Normal.[facility]ike Medical CenterComment on above:Performed By: #### CMP, [id number], A1C WTH eA, CBC, CUU, UA, FE and TIBC, LIPID, BRANDIN #### [place] [address] [place] #### INSULIN #### [facility] ,Nitrite Test strip Ql (U)Ordered By: Mayco Velasquez on 39-41-4177Jiotslc Ql (U) NegativeNegativeAdena Pike Medical CenterNo Panel InformationOrdered By: Mayco Velasquez on 30-36-3436Komgbxbi Creatinine Clearance (ChemN/Flower HospitalNucleated erythrocytes [Presence] in Blood by Automated countOrdered By: Mayco Velasquez on 42-05-1479Ysljnfomz RBC Auto Ql (Bld)0.1 /100{WBC}0-0.5FMercy Health St. Elizabeth Boardman HospitalPlatelet mean volume [Entitic volume] in Blood by Automated countOrdered By: Mayco Velasquez on 11-21-2024 Platelet mean volume (Bld) [Entitic vol]8.1 fLNormal6.3-10.7FMercy Health St. Elizabeth Boardman HospitalComment on above:Performed By: #### CMP, [id number], A1C WTH eA, CBC, CUU, UA, FE and TIBC, LIPID, BRANDIN #### [place] [address] [place] #### INSULIN #### [facility] ,Platelets [#/volume] in Blood by Automated countOrdered By: Mayco Velasquez on 58-79-1205Ekxgvsmob (Bld) [#/Vol]273 10*3/oANxqlyn774-640PuhyqaoalAdena Pike Medical CenterComment on above:Performed By: #### CMP, [id number], A1C WTH eA, CBC, CUU, UA, FE and TIBC, LIPID, BRANDIN #### [place] [address] [place] #### INSULIN #### [facility] ,Potassium [Moles/volume] in Serum or PlasmaOrdered By: Mayco Velasquez on 43-14-5958Zlkpphuzm [Moles/Vol]4.6 mmol/LNormal3.5-5.1FMercy Health St. Elizabeth Boardman HospitalComment on above:Order Comment: FASTING.JKWPerformed By: #### CMP, [id number], A1C WTH eA, CBC, CUU, UA, FE and TIBC, LIPID, BRANDIN ####[facility] [place] [address] [place]#### INSULIN ####[facility] ,Protein Test strip (U) [Mass/Vol]Ordered By: Mayco Velasquez on 45-49-9015Qhhoseb (U) [Mass/Vol]NegativeNegativeAdena Pike Medical CenterProtein [Mass/volume] in Serum or PlasmaOrdered By: Mayco Velasquez on 97-38-4461Epyjkdm [Mass/Vol]6.7 g/dLNormal6.4-8.9A[facility] Pike Medical CenterComment on above:Order Comment: FASTING.JKWPerformed By: #### CMP, [id number], A1C WTH eA, CBC, CUU, UA, FE and TIBC, LIPID, BRANDIN ####[facility] [place] [address] [place]#### INSULIN ####[facility] ,Serum globulin measurement by calculation (mass/volume)Ordered By: Mayco Velasquez on 29-43-8700Bvhwpycr (S) [Mass/Vol]2.0 g/dLNoOhioHealth Dublin Methodist HospitalComment on above:Order Comment: FASTING.JKWPerformed By: #### CMP, [id number], A1C WTH eA, CBC, CUU, UA, FE and TIBC, LIPID, BRANDIN ####[facility] [place] [address] [place]#### INSULIN ####[facility] ,Serum or plasma albumin/globulin mass ratioOrdered By: Mayco Velasquez on 11-21-2024 Albumin/Globulin [Mass ratio]2.4 {ratio}NormalAdena Pike Medical Center Comment on above:Order Comment: FASTING.JKWPerformed By: #### CMP, [id number], A1C WTH eA, CBC, CUU, UA, FE and TIBC, LIPID, BRANDIN ####[facility] [address]#### INSULIN ####[facility] ,Serum or plasma anion gap determinationOrdered By: Mayco Velasquez on 89-87-1065Hdpwr gap [Moles/Vol]9.9 mmol/LNormal6.0-15.0A[facility] Pike Medical CenterComment on above:Order Comment: FASTING.JKWPerformed By: #### CMP, [id number], A1C WTH eA, CBC, CUU, UA, FE and TIBC, LIPID, BRANDIN ####[facility]#### INSULIN ####[facility] ,Serum or plasma insulin measurement (units/volume) Ordered By: Mayco Velasquez on 14-13-8454Itrdzog Qn21.2 u[iU]/mL2.6-24.9Adena Pike Medical CenterComment on above:Performed at: [facility] [address] Director: Jourdan Gonzales PhD, Phone: [phone] or plasma iron binding capacity measurement (mass/volume)Ordered By: Mayco Velasquez on 93-41-6898Tmiz binding capacity [Mass/Vol]309 ug/tX848-761 [facility] Hospitalerum or plasma iron saturation measurement (mass fraction)Ordered By: Mayco Velasquez on 75-54-4265Tzwt saturation [Mass fraction]40.8 %20-50Wilson Memorial Hospitalerum or plasma total cholesterol/high density lipoprotein (HDL) cholesterol mass ratOrdered By: Mayco Velasquez on 45-46-5551Fclszoxdvnu.total/Cholesterol in HDL [Mass ratio]2.6 {ratio} Normal<5.0Aden[facility] Pike Medical CenterComment on above:Order Comment: FASTING.JKWPerformed By: #### CMP, [id number], A1C WTH eA, CBC, CUU, UA, FE and TIBC, LIPID, BRANDIN ####[facility] [place] [address] [place]#### INSULIN ####[facility] ,Sodium [Moles/volume] in Serum or PlasmaOrdered By: Mayco Velasquez on 10-17-3337Mnjvdw [Moles/Vol]139 mmol/L Ecqgmf044-177VuahybwmuAdena Pike Medical CenterComment on above:Order Comment: FASTING.JKWPerformed By: #### CMP, [id number], A1C WTH eA, CBC, CUU, UA, FE and TIBC, LIPID, BRANDIN ####[place] [address] [place]#### INSULIN ####[facility] ,Specific gravity Test strip (U) [Rel density]Ordered By: Mayco Velasquez on 47-35-5846Xjbucxtn gravity (U) [Rel density]1.0111.001-1.030A[facility] Pike Medical CenterTransferrin [Mass/volume] in Serum or PlasmaOrdered By: Mayco Velasquez on 11-21-2024 Transferrin [Mass/Vol]221 mg/zZQorggp103-338EylmeogyhAdena Pike Medical Center Comment on above:Order Comment: FASTING.JKWPerformed By: #### CMP, [id number], A1C WTH eA, CBC, CUU, UA, FE and TIBC, LIPID, BRANDIN ####[place] [address] [place]#### INSULIN ####[facility] ,Triglyceride [Mass/volume] in Serum or PlasmaOrdered By: Mayco Velasquez on 12-75-1192Ndtlhdxymcqz [Mass/Vol]127 mg/dL0-149Aden[facility] Pike Medical CenterComment on above:TRIG ATP III CLASSIFICATIONTRIG less than 150 mg/dL NormalTRIG 150-199 mg/dL Borderline highTRIG 200-500 mg/dL High TRIG greater than 500 mg/dL Very highStandard traceable to the Center for Disease Co nrtrol and Prevention (CDC) test method.Urea nitrogen [Mass/volume] in Serum or PlasmaOrdered By: Mayco Velasquez on 66-52-9003Llnn nitrogen [Mass/Vol]9 mg/dL Normal7-25Aden[facility] Pike Medical CenterComment on above:Order Comment: FASTING.JKWPerformed By: #### CMP, [id number], A1C WTH eA, CBC, CUU, UA, FE and TIBC, LIPID, BRANDIN ####[facility] [place] [address] [place]#### INSULIN ####[facility] ,Urinalysison 11-21-2024 Bilirubin,UrineNegativeNormalNegativeAdventhealth Brandon Er Physician GroupComment on above:Order Comment: Name Collection Type:: Clean-Voided MidstreamPerformed By: #### CMP, [id number], A1C WTH eA, CBC, CUU, UA, FE and TIBC, LIPID, BRANDIN #### [place] [address] [place] #### INSULIN #### [facility] ,Glucose Ql (U)NormalNormalNormUF Health Shands Children's Hospital Physician GroupComment on above: Order Comment: Name Collection Type:: Clean-Voided MidstreamPerformed By: #### CMP, [id number], A1C WTH eA, CBC, CUU, UA, FE and TIBC, LIPID, BRANDIN #### [address] #### INSULIN #### [facility] ,Nitrite,UrineNegativeNormalNegativeAdventhealth Brandon Er Physician GroupComment on above:Order Comment: Name Collection Type:: Clean-Voided MidstreamPerformed By: #### CMP, [id number], A1C WTH eA, CBC, CUU, UA, FE and TIBC, LIPID, BRANDIN #### [place] [address] [place] #### INSULIN #### [facility] ,Occult Blood,UrineNegativeNormalNegativeAdventhealth Brandon Er Physician GroupComment on above:Order Comment: Name Collection Type:: Clean-Voided MidstreamResult Comment: PERFORMED BY: [place] [address] PATHOLOGIST DERMATOLOGY TECHNICIAN ROHIT DONALDSON M.D.Performed By: #### CMP, [id number], A1C WTH eA, CBC, CUU, UA, FE and TIBC, LIPID, BRANDIN #### [address] #### INSULIN #### [facility] ,Protein,UrineNegativeNormalNegativeThe [facility] Physician GroupComment on above:Order Comment: Name Collection Type:: Clean-Voided MidstreamPerformed By: #### CMP, [id number], A1C WTH eA, CBC, CUU, UA, FE and TIBC, LIPID, BRANDIN #### [address] #### INSULIN #### [facility] ,Specificy [place],Urine1.332Zfkkbu6.001-1.030The [facility] Comment on above:Order Comment: Name Collection Type:: Clean-Voided Midstream Performed By: #### CMP, [id number], A1C WTH eA, CBC, CUU, UA, FE and TIBC, LIPID, BRANDIN #### [address] #### INSULIN #### [facility] ,Urobilinogen,UrineNormalNormalNormalThe [facility] Physician GroupComment on above:Order Comment: Name Collection Type:: Clean-Voided MidstreamPerformed By: #### CMP, [id number], A1C WTH eA, CBC, CUU, UA, FE and TIBC, LIPID, BRANDIN #### [place] [address] [place] #### INSULIN #### [facility] ,Urine Cultureon 20-74-9256Qcmzwvsb identified Cx Nom (U)ORGANISM: Streptococcus gallolyticus (O:STRGAL) [place] Count >100,000 Organism Comments Organism not Routinely Tested for Susceptibilities PERFORMED BY: [facility] [address] [place] [address] PATHOLOGIST DERMATOLOGY TECHNICIAN ROHIT DONALDSON M.D.NormalThe [facility] Caldwell Physician GroupComment on above: Performed By: #### CMP, [id number], A1C WTH eA, CBC, CUU, UA, FE and TIBC, LIPID, BRANDIN ####[place] [address] [place] [id number] [facility]#### INSULIN ####[facility] ,Urine cultureOrdered By: Mayco Velasquez on 59-28-6877Qypaahcs identified Cx Nom (U)Streptococcus gallolyticusAbnoal [facility] Pike Medical CenterUrobilinogen Test strip (U) [Mass/Vol]Ordered By: Mayco Velasquez on 25-12-5494Ttyleyysqqyk (U) [Mass/Vol]Normal mg/dLNoLouis Stokes Cleveland VA Medical CenterVitamin D 25 Hydroxy Totalon 60-95-0168Dxoezkp D 25 Hydroxy Total62.3 ng/nNVerxyq37-006Qwt [facility] Physician GroupComment on above:Order Comment: FASTING.JKWResult Comment: VITAMIN D STATUS 25(OH)VITAMIN D RANGE (ng/mL) Deficient <20 Insufficient 20 to <30 Sufficient 30 to 100 Reference: Sarah MF,Ligia NC, Skylar BALDERAS, et al. Evaluation,treatment, and prevention of vitamin D deficiency; an Endocrine Society clinical practice guideline. JCEM. 2010; 96(7):1911-30. PERFORMED BY: [facility] [address] [place] [address] PATHOLOGIST DERMATOLOGY TECHNICIAN ROHIT DONALDSON M.D.Performed By: #### CMP, [id number], A1C WTH eA, CBC, CUU, UA, FE and TIBC, LIPID, BRANDIN ####[place] [address] [place] [id number] [facility]#### INSULIN ####[facility] ,Vitamin D+Metabolites [Mass/volume] in Serum or PlasmaOrdered By: Mayco Velasquez on 94-63-8774Qrgamhn D+Metabolites [Mass/Vol]62.3 ng/gC57-536JnjfoqrkzAdena Pike Medical CenterComment on above:VITAMIN D STATUS 25(OH)VITAMIN D RANGE (ng/mL) Deficient <20 Insufficient 20 to <30Mwxumkwspo83 to 100Reference: Sarah MF,Ligia LOUIS, Skylar BALDERAS, et al. Evaluation,treatment, and prevention of vitamin D deficiency; an Endocrine Society clinical practice guideline. JCEM. 2010; 96(7):1911-30.pH of Urine by Test stripOrdered By: Mayco Velasquez on 17-69-7039fO (U)7.5 [pH]Normal5.0-9.0A[facility] Pike Medical CenterComment on above:Order Comment: Name Collection Type:: Clean-Voided MidstreamPerformed By: #### CMP, [id number], A1C WTH eA, CBC, CUU, UA, FE and TIBC, LIPID, BRANDIN #### [facility] [address] #### INSULIN #### [facility] ,MM screening mammo BI w/CADon 22-14-0521BY screening mammo BI w/[facility] [address] [place] [address] Mammography Report Signed Patient: Suma Scott MR#: [id number] : 1945 Acct:[id number] Age/Sex: 79 / F Adm Date: 10/19/24 Loc: [place] Room: Type: [facility] Attending Dr: Referral Self Ordering Provider: PAPITO,REFERRAL Date of Service: 10/19/24 Procedure(s): MM screening mammo BI w/CAD Accession Number(s): ([id number]) MM/MM screening mammo BI w/CAD: SCREENING Copies to: DO PAPITO Angulo,REFERRAL CLINICAL DATA: Screening for malignancy. SCREENING MAMMOGRAM - FULL FIELD DIGITAL WITH TOMOSYNTHESIS AND CAD COMPARISON:Mammograms dating back to 2020 Tomosynthesis craniocaudal and mediolateral oblique views of both breasts were obtained using low- dose digital technique. This examination was reviewed with [...] Jr., D.OBucky 10/19/2024 8:48 AM Dictation Location: [facility] Dictated By: Guy Ponce Jr, DO 10/19/24 0847 Signed By: 10/19/24 0848[facility] GroupMammography reportOrdered By: Guy Ponce on 55-21-0120Mpxfezitmt imaging [facility] [address] [place] [address] Mammography Report Signed Patient: Suma Scott MR#: [id number] : 1945 Acct:[id number] Age/Sex: 79 / F Adm Date: 5 Loc: [place] Room: Type: [facility] Attending Dr: Referral Self Ordering Provider: SELF,REFERRAL Date of Service: 10/19/24 Procedure(s): MM screening mammo BI w/CAD Accession Number(s): ([id number]) MM/MM screening mammo BI w/CAD: SCREENING Copies to: Mayco Velasquez DO SELF,REFERRAL ~ CLINICAL DATA: Screening for [...] mammogram. Impression dictated by: Guy Ponce Jr., D.O. 10/19/2024 8:48 AM Dictation Location: [facility] Dictated By: Guy Ponce Jr, DO 10/19/2447 Signed By: 10/19/24847 [facility]ike Medical CenterAlanine aminotransferase [Enzymatic activity/volume] in Serum or PlasmaOrdered By: Jenaro Max on 50-75-2831VXJ [Catalytic activity/Vol]Alanine aminotransferase [Enzymatic activity/volume] in Serum or Plasma7-52A[facility] Medical CenterAlbumin [Mass/volume] in Serum or Plasma by Bromocresol green (BCG) dye binding methoOrdered By: Jenaro Max on 90-86-6669Lygaggq BCG dye [Mass/Vol]Albumin [Mass/volume] in Serum or Plasma by Bromocresol green (BCG) dye binding metho3.5-5.7FMercy Health St. Elizabeth Boardman HospitalAlkaline phosphatase [Enzymatic activity/volume] in Serum or PlasmaOrdered By: Jenaro Max on 57-36-9762KZX [Catalytic activity/Vol] Alkaline phosphatase [Enzymatic activity/volume] in Serum or Atpdpx44-510 [facility] Medical CenterAspartate aminotransferase [Enzymatic activity/volume] in Serum or PlasmaOrdered By: Jenaro Max on 99-92-2827KNG [Catalytic activity/Vol]Aspartate aminotransferase [Enzymatic activity/volume] in Serum or Cgiopt73-72UyjnjehzwAdena Pike Medical CenterB-Type Natriuretic Peptideon 63-88-1504Jilqfceqyxo peptide B (Bld) [Mass/Vol]40.0 pg/mLNormal5-100 The [facility] Physician GroupComment on above:Result Comment: PERFORMED BY: [address] [place] [address] PATHOLOGIST DERMATOLOGY TECHNICIAN TAVO JAVED M.D.Performed By: #### LIPASE, HS TROP, CBC, PT, BNP, PTT, HEPATIC, BMP ####[place] [id number] USABasic Metabolic Panelon 55-78-0224Ketqa gap [Moles/Vol]12.1 mmol/L Normal6.0-15.0The [facility] Physician GroupComment on above:Performed By: #### LIPASE, HS TROP, CBC, PT, BNP, PTT, HEPATIC, BMP ####[place] [address] USACalcium [Mass/Vol]9.9 mg/dLNormal 8.6-10.3The [facility] Physician GroupComment on above:Performed By: #### LIPASE, HS TROP, CBC, PT, BNP, PTT, HEPATIC, BMP ####[place] [address] USAChloride [Moles/Vol]100 mmol/SOrithw21-410Spl [facility] Physician GroupComment on above:Performed By: #### LIPASE, HS TROP, CBC, PT, BNP, PTT, HEPATIC, BMP ####[place] [address] USACO2 [Moles/Vol]27.3 mmol/PJvbcuo24.0-31.0The [facility] Physician GroupComment on above:Performed By: #### LIPASE, HS TROP, CBC, PT, BNP, PTT, HEPATIC, BMP ####[place] [address] USACreatinine [Mass/Vol]0.61 mg/dLNormal0.60-1.20The [facility] Physician GroupComment on above:Performed By: #### LIPASE, HS TROP, CBC, PT, BNP, PTT, HEPATIC, BMP ####[place] [address] USACreatinine Clr Calc Qsbgzzpz82.02NormalThe [facility] Physician GroupComment on above:Performed By: #### LIPASE, HS TROP, CBC, PT, BNP, PTT, HEPATIC, BMP ####[place] [id number] USAGFR/1.73 sq M.predicted MDRD (S/P/Bld) [Vol rate/Area]mL/min/{1.73_m2}NormalThe [facility]dwell Physician GroupComment on above: Performed By: #### LIPASE, HS TROP, CBC, PT, BNP, PTT, HEPATIC, BMP ####[place] [address] USAGlucose [Mass/Vol]130 mg/rLNplm04-122Avo [facility] Physician GroupComment on above: Result Comment: Random Glucose Reference Range is dependent on time and content of last meal. Glucose of more than 200 mg/dL in a nonstressed, ambulatory subject supports the diagnosis of Diabetes Mellitus. ADA recommended reference rangePerformed By: #### LIPASE, HS TROP, CBC, PT, BNP, PTT, HEPATIC, BMP ####[place] [address] USAPotassium [Moles/Vol]3.4 mmol/LLow3.5-5.1The [facility] Physician GroupComment on above:Performed By: #### LIPASE, HS TROP, CBC, PT, BNP, PTT, HEPATIC, BMP ####[place] [address] USASodium [Moles/Vol]136 mmol/BMnygbv982-293Zgb [facility] Comment on above:Performed By: #### LIPASE, HS TROP, CBC, PT, BNP, PTT, HEPATIC, BMP ####[place] [address] [place] Urea nitrogen [Mass/Vol]6 mg/dLLow7-25The [facility] Physician GroupComment on above:Performed By: #### LIPASE, HS TROP, CBC, PT, BNP, PTT, HEPATIC, BMP ####[place] [address] [place] Basophils Auto (Bld) [#/Vol]Ordered By: Jenaro Max on 46-45-6656Pwuyqrsts (Bld) [#/Vol]Automated basophil count0.0-0.2FMercy Health St. Elizabeth [facility] Hospital Basophils/100 WBC Auto (Bld)Ordered By: Jenaro Max on 07-18-2024 Basophils/100 WBC (Bld)Automated basophil %.[facility] Bilirubin.direct [Mass/volume] in Serum or PlasmaOrdered By: Jenaro Max on 32-83-8389Udoslyvtp.direct [Mass/Vol]Bilirubin.direct [Mass/volume] in Serum or Plasma0.03-0.18FMercy Health St. Elizabeth Boardman HospitalBilirubin.total [Mass/volume] in Serum or PlasmaOrdered By: Jenaro Max on 31-08-9853Ziampxzxy [Mass/Vol] Bilirubin.total [Mass/volume] in Serum or Plasma0.3-1.0A[facility] Medical CenterCT head/brain wo conon 75-63-2339VU head/brain wo [facility] [place] [address] CT Scan Report Signed Patient: Suma Scott MR#: [id number] : 1945 Acct:[id number] Age/Sex: 79 / F ADM Date: 07/17/24 Loc: ER Room: Type: [facility] ER Attending Dr: Copies to: Jenaro Max DO Ordering Provider: Jenaro Max DO Date of Service: 07/17/24 CT/CT head/brain wo con: r/o ich CT BRAIN WITHOUT CONTRAST: CLINICAL HISTORY: Headache and nausea shortness of breath for 2 days COMPARISON: MRI brain 12/30/2018 TECHNIQUE: Contiguous axial unenhanced images were obtained through the brain. This CT exam was performed using one or more following dose reduction techniques: Automated exposure control, adjustment of the mA and/or kV according to patient size, or use of iterative reconstruction technique. FINDINGS: There is no evidence of midline shift, intra or extra-axial fluid collection, hemorrhage or CT evidence of stroke. Cortical atrophy with chronic microvascular ischemic changes. 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 Posterior fossa appears unremarkable. Visualized intraorbital contents demonstrate no acute findings. Partially visualized hypoplastic left maxillary sinus. The surrounding soft tissues are normal. CT/CT head/brain wo con IMPRESSION: NO ACUTE INTRACRANIAL ABNORMALITY. Impression dictated by: Guy Ponce Jr., D.O. 07/18/2024 8:16 AM Dictation Location: [place] [address] Transcribed By: [facility] 07/18/24815 Dictated By: Guy Ponce Jr, DO 07/18/2414 Signed By: 07/18/24 0816[facility] Physician GroupCalcium [Mass/volume] in Serum or PlasmaOrdered By: Jenaro Max on [id number] [Mass/Vol]Calcium [Mass/volume] in Serum or Plasma8.6-10.3FMercy Health St. Elizabeth Boardman HospitalCarbon dioxide, total [Moles/volume] in Serum or PlasmaOrdered By: Jenaro Max on 38-62-6070OT4 [Moles/Vol]Carbon dioxide, total [Moles/volume] in Serum or Plasma 21.0-31.0[facility] Medical CenterChloride [Moles/volume] in Serum or PlasmaOrdered By: Jenaro Max on 06-10-4291Egkqriqd [Moles/Vol]Chloride [Moles/volume] in Serum or Hqnwxq15-816DepsprjjlAdena Pike Medical CenterComplete Blood Count Auto Diffon 09-99-7962Irymvxywb (Bld) [#/Vol]0.0 10*3/uLNormal 0.0-0.2The [facility] Physician GroupComment on above:Result Comment: PERFORMED BY: [facility] [address] [place] [address] PATHOLOGIST DERMATOLOGY TECHNICIAN TAVO JAVED M.D.Performed By: #### LIPASE, HS TROP, CBC, PT, BNP, PTT, HEPATIC, BMP ####[facility] [place] [address] USABasophils/100 WBC (Bld)0.7 %Normal.The [facility] Comment on above:Performed By: #### LIPASE, HS TROP, CBC, PT, BNP, PTT, HEPATIC, BMP ####[facility] [place] [address] [place] Eosinophils (Bld) [#/Vol]0.2 10*3/uLNormal0.0-0.45The [facility] Comment on above:Performed By: #### LIPASE, HS TROP, CBC, PT, BNP, PTT, HEPATIC, BMP ####[place] [address] [place] Eosinophils/100 WBC (Bld)3.2 %Normal.The [facility] Physician GroupComment on above:Performed By: #### LIPASE, HS TROP, CBC, PT, BNP, PTT, HEPATIC, BMP ####[address] Erythrocyte distribution width (RBC) [Ratio]12.8 %Eypmbf82.9-15.3The [facility] Physician GroupComment on above:Performed By: #### LIPASE, HS TROP, CBC, PT, BNP, PTT, HEPATIC, BMP ####[place] [address] USAHematocrit (Bld) [Volume fraction]40.8 %Normal 34.0-46.4The [facility] Physician GroupComment on above:Performed By: #### LIPASE, HS TROP, CBC, PT, BNP, PTT, HEPATIC, BMP ####[place] [address] USAHemoglobin (Bld) [Mass/Vol]14.1 g/dL Qbxdcp10.8-15.4The [facility] Physician GroupComment on above:Performed By: #### LIPASE, HS TROP, CBC, PT, BNP, PTT, HEPATIC, BMP ####[place] [address] USALymphocytes (Bld) [#/Vol]2.2 10*3/uL Normal1.00-4.8The [facility] Physician GroupComment on above:Performed By: #### LIPASE, HS TROP, CBC, PT, BNP, PTT, HEPATIC, BMP ####[place] [address] USALymphocytes/100 WBC (Bld)37.3 %Normal. The [facility] Physician GroupComment on above:Performed By: #### LIPASE, HS TROP, CBC, PT, BNP, PTT, HEPATIC, BMP ####[place] [id number] [facility] (RBC) [Entitic mass]29.2 ugWelwer04.7-34.3 The [facility] Physician GroupComment on above:Performed By: #### LIPASE, HS TROP, CBC, PT, BNP, PTT, HEPATIC, BMP ####[address] (RBC) [Entitic vol]84.5 dUQkgyyj70-019Zbl [facility] Physician GroupComment on above:Performed By: #### LIPASE, HS TROP, CBC, PT, BNP, PTT, HEPATIC, BMP ####[place] [address] USAMean Corpuscular HGB Conc34.6 g/nOIkyssw07.0-35.0The [facility] Physician GroupComment on above:Performed By: #### LIPASE, HS TROP, CBC, PT, BNP, PTT, HEPATIC, BMP ####[place] [address] USAMonocytes (Bld) [#/Vol]0.7 10*3/uLNormal0.0-0.8The [facility] Physician GroupComment on above:Performed By: #### LIPASE, HS TROP, CBC, PT, BNP, PTT, HEPATIC, BMP ####[place] [address] USAMonocytes/100 WBC (Bld)17.93 %Normal0.00-20.00The [facility] Physician GroupComment on above:Performed By: #### LIPASE, HS TROP, CBC, PT, BNP, PTT, HEPATIC, BMP ####[place] [address] USAMonocytes/100 WBC (Bld)12.1 %Normal.The [facility] Physician GroupComment on above:Performed By: #### LIPASE, HS TROP, CBC, PT, BNP, PTT, HEPATIC, BMP ####[place] [address] USANeutrophils (Bld) [#/Vol]2.8 10*3/uLNormal1.8-7.7The [facility] Physician GroupComment on above:Performed By: #### LIPASE, HS TROP, CBC, PT, BNP, PTT, HEPATIC, BMP ####[place] [address] USANeutrophils/100 WBC (Bld)46.7 %Normal.The [facility] Physician GroupComment on above:Performed By: #### LIPASE, HS TROP, CBC, PT, BNP, PTT, HEPATIC, BMP ####[place] [address] USANRBC%0.1 /100{WBC}Normal0-0.5The [facility] Physician GroupComment on above:Performed By: #### LIPASE, HS TROP, CBC, PT, BNP, PTT, HEPATIC, BMP ####[place] [address] USAPlatelet mean volume (Bld) [Entitic vol]8.0 fLNormal6.3-10.7The [facility] Physician GroupComment on above:Performed By: #### LIPASE, HS TROP, CBC, PT, BNP, PTT, HEPATIC, BMP ####[place] [address] USAPlatelets (Bld) [#/Vol]252 10*3/zFNwttau112-451Klz [facility] Physician GroupComment on above:Performed By: #### LIPASE, HS TROP, CBC, PT, BNP, PTT, HEPATIC, BMP ####[place] [address] USARBC (Bld) [#/Vol]4.83 10*6/uLNormal3.60-5.00The [facility] Physician GroupComment on above:Performed By: #### LIPASE, HS TROP, CBC, PT, BNP, PTT, HEPATIC, BMP ####[place] [address] USAWBC (Bld) [#/Vol]5.9 10*3/uLNormal3.8-11.6The [facility] Physician GroupComment on above:Performed By: #### LIPASE, HS TROP, CBC, PT, BNP, PTT, HEPATIC, BMP ####[facility] [address] [place] [address] USACreatinine [Mass/volume] in Serum or PlasmaOrdered By: Jenaro Max on 29-50-9882Nrvvptovra [Mass/Vol]Creatinine [Mass/volume] in Serum or Plasma0.60-1.20[facility] Medical CenterECG 12 lead ECGon 51-74-1969UKS 12 lead ECGCINCINNAT[facility] Main [place] [address] [place] [address] Electrocardiograph Report Signed Patient: Suma Scott MR#: [id number] 744 : 1945 Acct:[id number] Age/Sex: 79 / F ADM Date: 07/17/24 Loc: ER Room: Type: [facility] ER Attending Dr: Ordering Provider: Jenaro Max DO Date of Service: 07/18/2408/07/48 ECG/ECG 12 lead ECG: Shortness of Breath/Dyspnea Copies to: Test Reason : Blood Pressure : 148/84 mmHG Vent. Rate : 69 BPM Atrial Rate : 69 BPM P-R Int : 154 ms QRS Dur : 82 ms QT Int : 424 ms P-R-T Axes : 21 16 6 degrees QTcB Int : 454 ms Normal sinus rhythm Nonspecific ST abnormality Abnormal ECG Confirmed by Rosenda Carmona ([id number]) on 07/20/2024 10:56:03 AM Referred By: Electronically Signed By: Rosenda Carmona Transcribed By: MUS Signed By Rosenda Carmona MD [address] [place] [address] Physician GroupEosinophils Auto (Bld) [#/Vol]Ordered By: Jenaro Max on 87-33-7246Djcrnbizddj (Bld) [#/Vol]Automated eosinophil count0.0-0.45[facility] Medical CenterEosinophils/100 WBC Auto (Bld) Ordered By: Jenaro Max on 20-57-5914Rpmyllerwry/100 WBC (Bld)Automated eosinophil %.[facility] Medical CenterErythrocyte distribution width Auto (RBC) [Ratio]Ordered By: Jenaro Max on 64-01-6314Ikuihnhhovj distribution width (RBC) [Ratio]Erythrocyte distribution width [Ratio] by Automated count11.9-15.3FMercy Health St. Elizabeth Boardman HospitalGlobulin Calc (S) [Mass/Vol]Ordered By: Jenaro Max on 97-32-8290Pzvbnevx (S) [Mass/Vol]Serum globulin measurement by calculation (mass/volume)[facility] Medical CenterGlucose [Mass/volume] in Serum or PlasmaOrdered By: Jenaro Max on 85-75-9979Slwsajl [Mass/Vol]Glucose [Mass/volume] in Serum or MlxpidEeak27-026 [facility] Medical CenterComment on above:ADA recommended reference rangeRandom Glucose Reference Range is dependent on time and content of last meal. Glucose of more than 200 mg/dL in a nonstressed, ambulatory subject supports the diagnosisof Diabetes Mellitus.Hematocrit Auto (Bld) [Volume fraction]Ordered By: Jenaro Max on 88-95-7387Hyrwxpueac (Bld) [Volume fraction]Hematocrit [Volume Fraction] of Blood by Automated count34.0-46.4 [facility] Medical CenterHemoglobin [Mass/volume] in BloodOrdered By: Jenaro Max on 72-33-6593Vwczdxgefm (Bld) [Mass/Vol]Hemoglobin [Mass/volume] in Blood11.8-15.4FMercy Health St. Elizabeth Boardman HospitalHepatic Panelon 15-98-6624Qqcnfzj [Mass/Vol]4.8 g/dLNormal3.5-5.7The [facility] Comment on above:Performed By: #### LIPASE, HS TROP, CBC, PT, BNP, PTT, HEPATIC, BMP ####[facility] [address] [place] [address] [place] Albumin/Globulin [Mass ratio]2.5 {ratio}NormalThe [facility] Comment on above:Performed By: #### LIPASE, HS TROP, CBC, PT, BNP, PTT, HEPATIC, BMP ####[facility] [address] [place] [address] USAALP [Catalytic activity/Vol]64 U/DEqupue24-874Ihf [facility] Physician GroupComment on above:Performed By: #### LIPASE, HS TROP, CBC, PT, BNP, PTT, HEPATIC, BMP ####[place] [address] USAALT [Catalytic activity/Vol]38 U/LNormal7-52The [facility] Physician GroupComment on above:Performed By: #### LIPASE, HS TROP, CBC, PT, BNP, PTT, HEPATIC, BMP ####[place] [address] USAAST [Catalytic activity/Vol]31 U/ASofinq44-86Beo [facility] Physician GroupComment on above:Performed By: #### LIPASE, HS TROP, CBC, PT, BNP, PTT, HEPATIC, BMP ####[address] Bilirubin [Mass/Vol]0.6 mg/dLNormal0.3-1.0The [facility] Physician GroupComment on above:Performed By: #### LIPASE, HS TROP, CBC, PT, BNP, PTT, HEPATIC, BMP ####[address] Bilirubin,Indirect0.5 mg/dLNormalThe [facility] Physician GroupComment on above: Performed By: #### LIPASE, HS TROP, CBC, PT, BNP, PTT, HEPATIC, BMP ####[address] Bilirubin.indirect [Mass/Vol]0.10 mg/dLNormal0.03-0.18The [facility] Physician GroupComment on above:Performed By: #### LIPASE, HS TROP, CBC, PT, BNP, PTT, HEPATIC, BMP ####[place] [address] USAGlobulin (S) [Mass/Vol]1.9 g/dLNormShelby Memorial Hospitale [facility] Comment on above:Performed By: #### LIPASE, HS TROP, CBC, PT, BNP, PTT, HEPATIC, BMP ####[address] Protein [Mass/Vol]6.7 g/dLNormal6.4-8.9The [facility] Physician GroupComment on above:Performed By: #### LIPASE, HS TROP, CBC, PT, BNP, PTT, HEPATIC, BMP ####[facility] [place] [address] USAINR in Platelet poor plasma by Coagulation assayOrdered By: Jenaro Max on 71-20-1824GXT Coag (PPP) [Relative time]INR in Platelet poor plasma by Coagulation assayAdena Pike Medical CenterComment on above:INR Therapeutic Range A) Pre- and Peroperative OAT started two weeks before surgery. NOT HIP SURGERY: 1.5 - 2.5 HIP SURGERY: 2 - 3B) Primary and secondary prevention of venous THROMBOSIS: 2 - 3C) Active venous thrombosis, pulmonary embolismand prevention of recurrent venous thrombosis: 2 - 3D) Prevention of arterial thromboembolismincluding patients with mechanical heart valves: 3 - 4.5 Leukocytes [#/volume] corrected for nucleated erythrocytes in Blood by Automated counOrdered By: Jenaro Max on 46-66-2083WRG corrected for nucl RBC Auto (Bld) [#/Vol]Leukocytes [#/volume] corrected for nucleated erythrocytes in Blood by Automated coun3.8-11.6FMercy Health St. Elizabeth Boardman HospitalLipaseon 07-18-2024 Lipase [Catalytic activity/Vol]28.0 U/UIowxzv55.0-82.0The [facility] Physician GroupComment on above:Result Comment: PERFORMED BY: [facility] [address] [place] [address] PATHOLOGIST DERMATOLOGY TECHNICIAN TAVO JAVED M.D.Performed By: #### LIPASE, HS TROP, CBC, PT, BNP, PTT, HEPATIC, BMP ####[place] [address] [place] [address] USALipase [Enzymatic activity/volume] in Serum or PlasmaOrdered By: Jenaro Max on 79-08-2479Ohkspc [Catalytic activity/Vol]Lipase [Enzymatic activity/volume] in Serum or Zsnygy31.0-82.0[facility] Lymphocytes Auto (Bld) [#/Vol]Ordered By: Jenaro Max on 07-18-2024 Lymphocytes (Bld) [#/Vol]Lymphocytes [#/volume] in Blood by Automated count 1.00-4.8[facility] Medical CenterLymphocytes/100 WBC Auto (Bld)Ordered By: Jenaro Max on 43-09-2382Cgfhkwduhvt/100 WBC (Bld)Lymphocytes/100 leukocytes in Blood by Automated count.[facility] CenterH Auto (RBC) [Entitic mass]Ordered By: Jenaro Max on 97-06-6414WTH (RBC) [Entitic mass]MCH [Entitic mass] by Automated count24.7-34.3FUC West Chester HospitalHC Auto (RBC) [Mass/Vol]Ordered By: Jenaro Max on 44-24-0239ABYV (RBC) [Mass/Vol]MCHC [Mass/volume] by Automated count32.0-35.0 [facility] Medical CenterMCV Auto (RBC) [Entitic vol]Ordered By: Jenaro Max on 25-64-9624TTV (RBC) [Entitic vol]MCV [Entitic volume] by Automated assrg35-770ZkzbumptpAdena Pike Medical CenterMonocyte distribution width [Entitic volume] in Blood by AutomatedOrdered By: Jenaro Max on 45-32-4010Vfieyhgz distribution width Auto (Bld) [Entitic vol]Monocyte distribution width [Entitic volume] in Blood by Automated0.00-20.00[facility] Monocytes Auto (Bld) [#/Vol]Ordered By: Jenaro Max on 44-17-9000Ymzptskhl (Bld) [#/Vol]Automated blood monocyte count0.0-0.8[facility] Medical CenterMonocytes/100 WBC Auto (Bld)Ordered By: Jenaro Max on 07-18-2024 Monocytes/100 WBC (Bld)Automated monocyte %.[facility] Natriuretic peptide B [Mass/Vol]Ordered By: Jenaro Max on 07-18-2024 Natriuretic peptide B (Bld) [Mass/Vol]BNP ser/plas5-100A[facility] Medical CenterNeutrophils Auto (Bld) [#/Vol]Ordered By: Jenaro Max on 89-76-9315Pmlztwiteqo (Bld) [#/Vol]Neutrophils [#/volume] in Blood by Automated count1.8-7.7FMercy Health St. Elizabeth Boardman HospitalNeutrophils/100 WBC Auto (Bld) Ordered By: Jenaro Max on 72-10-9612Blwxofjcfna/100 WBC (Bld)Automated neutrophil %.[facility] Medical CenterNo Panel InformationOrdered By: Jenaro Max on 09-88-2813Zqcpdccey GFR (CKD-EPI)> 60.0 mL/MinAdena Pike Medical CenterPharmacy Creatinine Clearance (Chem54.02A[facility] Medical CenterNucleated erythrocytes [Presence] in Blood by Automated countOrdered By: Jenaro Max on 31-96-0979Qjvzpyyzu RBC Auto Ql (Bld) Nucleated erythrocytes [Presence] in Blood by Automated count0-0.5FMercy Health St. Elizabeth Boardman HospitalPartial Thromboplastin Timeon 22-80-3356vIRH Coag (Bld) [Time]28.7 vRjkxnm82.1-36.5The [facility] Physician GroupComment on above:Result Comment: A hematocrit value greater than 55% may lead to inaccurate results in coagulation testing. Patients having hematocrit values >55% require a special collection tube for coagulation studies. Please contact the laboratory at [phone] for redraw instructions. PERFORMED BY: [facility] [address] [place] [address] PATHOLOGIST DERMATOLOGY TECHNICIAN TAVO JAVED M.D.Performed By: #### LIPASE, HS TROP, CBC, PT, BNP, PTT, HEPATIC, BMP ####[facility] [address] [place] [address] USAPlatelet mean volume Auto (Bld) [Entitic vol]Ordered By: Jenaro Max on 27-74-1716Dalavtiq mean volume (Bld) [Entitic vol]Platelet mean volume [Entitic volume] in Blood by Automated count6.3-10.7FMercy Health St. Elizabeth Boardman HospitalPlatelets Auto (Bld) [#/Vol]Ordered By: Jenaro Max on 90-86-1921Sfcoubpzp (Bld) [#/Vol]Platelets [#/volume] in Blood by Automated -064LsrgpkvvdAdena Pike Medical CenterPotassium [Moles/volume] in Serum or PlasmaOrdered By: Jenaro Max on 12-74-8184Maiasvmdb [Moles/Vol] Potassium [Moles/volume] in Serum or PlasmaLow3.5-5.1FMercy Health St. Elizabeth Boardman HospitalProtein [Mass/volume] in Serum or PlasmaOrdered By: Jenaro Max on 73-03-3818Vgrbrxm [Mass/Vol]Protein [Mass/volume] in Serum or Plasma6.4-8.9 [facility] CenterProthrombin Time INRon 33-28-9432PYB Coag (PPP) [Relative time]0.9 {INR}NormalThe [facility] Physician [facility]aughters Medical CenterComment on above: Result Comment: INR Therapeutic Range A) Pre- and Peroperative OAT started two weeks before surgery. NOT HIP SURGERY: 1.5 - 2.5 HIP SURGERY: 2 - 3 B) Primary and secondary prevention of venous THROMBOSIS: 2 - 3 C) Active venous thrombosis, pulmonary embolism and prevention of recurrent venous thrombosis: 2 - 3 D) Prevention of arterial thromboembolism including patients with mechanical heart valves: 3 - 4.5Performed By: #### LIPASE, HS TROP, CBC, PT, BNP, PTT, HEPATIC, BMP ####[facility] [address] [place] [address] USAPT Coag (PPP) [Time]10.8 sNormal 9.0-12.9The [facility] Physician [facility]aughters Medical CenterComment on above:Result Comment: A hematocrit value greater than 55% may lead to inaccurate results in coagulation testing. Patients having hematocrit values >55% require a special collection tube for coagulation studies. Please contact the laboratory at [phone] for redraw instructions.Performed By: #### LIPASE, HS TROP, CBC, PT, BNP, PTT, HEPATIC, BMP ####[facility] [address] [place] [address] [facility] Prothrombin time (PT)Ordered By: Jenaro Max on 23-49-4998YO Coag (PPP) [Time]Prothrombin time (PT)9.0-12.9[facility] Medical CenterComment on above:A hematocrit value greater than 55% may lead to inaccurate results in coagulation testing. Patientshaving hematocrit values >55% require a special collection tube for coagulation studies. Please contact the laboratory at [phone] for redraw instructions.RBC Auto (Bld) [#/Vol]Ordered By: Jenaro Max on 81-30-2590ACK (Bld) [#/Vol]Erythrocytes [#/volume] in Blood by Automated count3.60-5.00[facility] Memorial Hospitalerum or plasma albumin/globulin mass ratioOrdered By: Jenaro Max on 07-18-2024 Albumin/Globulin [Mass ratio]Serum or plasma albumin/globulin mass ratio [facility] Hospitalerum or plasma anion gap determinationOrdered By: Jenaro Max on 10-02-3361Wlcpg gap [Moles/Vol]Serum or plasma anion gap determination6.0-15.0[facility] Memorial Hospitalerum or plasma non- glucuronidated bilirubin measurement (mass/volume)Ordered By: Jenaro Max on 44-97-7855Clpexpzvf.indirect [Mass/Vol]Serum or plasma non-glucuronidated bilirubin measurement (mass/volume)[facility] Memorial Hospitalodium [Moles/volume] in Serum or PlasmaOrdered By: Jenaro Max on 07-18-2024 Sodium [Moles/Vol]Sodium [Moles/volume] in Serum or Jrlhap931-340GhidqahniAdena Pike Medical CenterTroponin I High Sensitivityon 12-80-7515Qyvkezap I High Fnfkykuxesd3Xubztu4-63Iwt [facility] Physician GroupComment on above:Result Comment: The Troponin units of report have been changed to meet the Chest Pain Accreditation requirement, element EC5.M1l2. Troponin units are changed from pg/ml to ng/L. Also, the decimal is removed and results are in whole numbers. PERFORMED BY: [facility] [address] [place] [address] PATHOLOGIST DERMATOLOGY TECHNICIAN TAVO JAVED M.D.Performed By: #### LIPASE, HS TROP, CBC, PT, BNP, PTT, HEPATIC, BMP ####[facility] [address] [place] [address] USATroponin I.cardiac [Mass/volume] in Serum or Plasma by Detection limit <= 0.01 ng/Ordered By: Jenaro Max on 43-50-3555Xvhsylzu I.cardiac DL <= 0.01 ng/mL [Mass/Vol]Troponin I.cardiac [Mass/volume] in Serum or Plasma by Detection limit <= 0.01 ng/0-15[facility] Medical CenterComment on above:The Troponin units of report have been changed to meet the Chest Pain Accreditation requirement, element EC5.M1l2. Troponin units are changed from pg/ml to ng/L. Also, the decimal is removed and results are in whole numbers. Urea nitrogen [Mass/volume] in Serum or PlasmaOrdered By: Jenaro Max on 12-58-6526Piyb nitrogen [Mass/Vol]Urea nitrogen [Mass/volume] in Serum or Plasma [facility]7-25[facility] Medical CenterWBC Auto (Bld) [#/Vol]Ordered By: Jenaro Max on 08-37-9206ESO (Bld) [#/Vol]Leukocytes [#/volume] in Blood by Automated count3.8-11.6FMercy Health St. Elizabeth Boardman HospitalXR chest 1V portableon 60-58-5189TN chest 1V portableCINCINNATI [facility] [place] [address] XRay Report Signed Patient: Suma Scott MR#: [id number] 744 : 1945 Acct:[id number] Age/Sex: 79 / F ADM Date: 07/17/24 Loc: ER Room: Type: [facility] ER Attending Dr: Copies to: Jenaro Max DO Ordering Provider: Jenaro Max DO Date of Service: 07/17/24 XR/XR chest 1V portable: Shortness of Breath/Dyspnea SINGLE VIEW CHEST CLINICAL HISTORY: Nausea and weakness fever and hand swelling. Shortness of breath headache for 2 days COMPARISON: None FINDINGS: Heart normal in size. Lungs are clear. No free air. XR/XR chest 1V portable IMPRESSION: NO ACUTE FINDINGS Impression dictated by: Guy Ponce Jr., D.OBucky 07/18/2024 8:14 AM Dictation Location: [place] [address] Transcribed By: [facility] 07/18/24 0814 Dictated By: Guy Ponce Jr, DO 07/18/24 0813 Signed By: 07/18/24 0814[facility] Physician GroupaPTT in Platelet poor plasma by Coagulation assayOrdered By: Jenaro Max on 12-04-9268sBEF Coag (PPP) [Time]Activated partial thromboplastin time (aPTT) in platelet poor plasma by coagulation a25.1-36.5FMercy Health St. Elizabeth Boardman HospitalComment on above:A hematocrit value greater than 55% may lead to inaccurate results in coagulation testing. Patientshaving hematocrit values >55% require a special collection tube for coagulation studies. Please contact the laboratory at [phone] for redraw instructions.ECG 12 lead ECGon 92-00-0250AEO 12 lead ECGCINCINNATI CHILDREN'S [facility] [place] [address] Electrocardiograph Report Signed Patient: Suma Scott MR#: [id number] 744 : 1945 Acct:[id number] Age/Sex: 79 / F ADM Date: 07/17/24 Loc: ER Room: Type: [facility] ER Attending Dr: Ordering Provider: Jenaro Max DO Date of Service: 07/18/2408/07/13 ECG/ECG 12 lead ECG: Shortness of Breath/Dyspnea Copies to: Test Reason : Blood Pressure : */* mmHG Vent. Rate : 68 BPM Atrial Rate : 68 BPM P-R Int : 164 ms QRS Dur : 84 ms QT Int : 422 ms P-R-T Axes : 29 22 17 degrees QTcB Int : 448 ms Normal sinus rhythm Confirmed by Jenaro Max DO ([id number]) on 07/18/2024 1:08:16 AM Referred By: Electronically Signed By: Jenaro Max DO Transcribed By: MUS Signed By Jenaro Max DO 0108[facility] Physician GroupCNOVon 27-82-8270CWPBCpubou Visit (PLAFVW) SUMA SCOTT ([id number]) 1945 F Date Time Provider Department 06/08/24 2:30 PM MEJIA JOHN During your visit today, we recorded the following information about you: Mejia John PA-C 06/08/2024 2:28 PM Signed Suma Scott underwent left endoscopic carpal tunnel release on 05/20/24. The patient returns today for follow-up. The patient reports no major issues since surgery. The numbness/tingling in the left hand had improved / resolved. On exam of the left hand, the incision was healed without evidence of infection. All sutures removed by family member. (+) left thumb opposition. Able to make a full composite left fist. ASSESSMENT: Post-operative state (primary encounter diagnosis) PLAN: We instructed the patient to start performing scar massage for 5-10 minutes each time, 3x per day. No lifting > 5 lbs using the operated hand for 2 more weeks. After that, there will be no restrictions, and the patient may use the operated hand as tolerated. Return to clinic as needed, or when the patient desires to have carpal tunnel decompression on the contralateral side. The patient is seen and examined by Mejia John PA-C and the following reflects his/her service. Scribed by Eric Calzada RN I agree with the Chief Complaint, ROS, and Past Histories independently gathered by the clinical account support rep and the remaining scribed note accurately describes my personal service to the patient. Mejia John PA-C June 08, 2024 2:28 PM This note was generated with voice recognition software and may contain errors, including spelling, grammar, syntax and misrecognition of what was dictated, that are not fully corrected. Allergies As of Date: 06/08/2024 (No Known Allergies) Date Reviewed: 06/08/2024 Reviewed by: Genoveva Forbes MA - Fully Assessed Reason for Visit: Post Op [174] Primary Visit Diagnosis:Post-operative state [Z98.890] Prescriptions as of 06/08/2024 - hydrOXYchloroQUINE (PLAQUENIL) 200 mg tablet TAKE 2 TABLETS ONCE DAILY - gabapentin (NEURONTIN) 100 mg capsule Take 100 mg by mouth three times a day. Taking 500 mg in am and 600 mg in pm - clonazePAM (KLONOPIN) 0.5 mg tablet Take 0.5 mg by mouth as directed. 2 tabs at night - sodium chloride 1 gram tab Take 1 g by mouth twice daily. - amLODIPine (NORVASC) 5 mg tablet Take by mouth once daily. - simvastatin (ZOCOR) 20 mg tablet Take 20 mg by mouth daily at bedtime. - metoprolol tartrate, short acting, (LOPRESSOR) 50 mg tablet Take 50 mg by mouth twice daily. - ferrous sulfate 325 mg (65 mg iron) tablet Take 325 mg by mouth. Three times weekly - DULoxetine (CYMBALTA) 30 mg capsule Take 30 mg by mouth twice daily. - amitriptyline (ELAVIL) 25 mg tablet Take 25 mg by mouth daily at bedtime. - ZOLMitriptan (ZOMIG) 2.5 mg tablet Take 2.5 mg by mouth as needed. - omeprazole (PRILOSEC) 40 mg capsule Take 40 mg by mouth twice daily. - omega-3/dha/epa/dpa/fish oil (OMEGA-3 2100 ORAL) Take by mouth once daily. - cholecalciferol (VITAMIN D) 1,000 unit tab tablet Take 1,000 Units by mouth once daily. - vitamin b complex capsule Take 1 capsule by mouth once daily. - Ascorbic Acid (VITAMIN C) 500 mg chew Take 500 mg by mouth once daily. Problem List As Of Date 06/08/2024 Noted Resolved Obesity (BMI 30.0-34.9) [E66.811] 09/22/2023 Depression [F32.A] 02/10/2023 Essential hypertension [I10] 02/10/2023 Gastroesophageal reflux disease [K21.9] 02/10/2023 Gout [M10.9] 05/17/2024 05/18/2024 Iron deficiency anemia [D50.9] 05/17/2024 Migraines [G43.909] 02/10/2023 Hyperlipidemia [E78.5] 05/17/2024 Rheumatoid arthritis (HCC) [M06.9] 05/29/2023 Paroxysmal SVT (supraventricular tachycardia) (*02/10/2023 Cannabis use without complication [F12.90] 05/19/2024 Level of Service: POSTOP FOLLOW UP VISIT RELATED TO ORIGINAL PX [[id number]] Encounter Status:Closed by MEJIA JOHN on 06/08/24[facility] [id number] (PSMBHT) SUMA SCOTT ([id number]) 1945 F Date Time Provider Department 06/01/24 [facility] During your visit today, we recorded the following information about you: Tania Fernandez 06/01/2024 12:18 PM Signed Please call patient. She said her appointment was cancelled for tomorrow. She is post op and needs stitches removed. She is rescheduled 06/08 in [place] but prefers to come to [facility]. She is asking if it is safe to leave stitches in that long and can someone please call patient. [phone]. Anabell Felder RN 06/01/2024 2:14 PM Signed Returned patient call and assisted if I could schedule her a nursing visit to have sutures removed but informed patient she will need to continue to keep the follow up with Mejia in [place] to review the surgical site. Patient said she would not like to make two trips but also informed her waiting until the would be to long to keep the sutures in. Patient said she the surgical site looks good and her granddaughter is a nurse she will ask her if she is able to remove them or she would go to her local hospital to get them removed as she lives about an hour away. Let patient know she can upload a photo on Vi[employer] once sutures are removed if she has any questions or concerns prior to her follow up appointment. Allergies As of Date: 06/01/2024 (No Known Allergies) Date Reviewed: 05/20/2024 Reviewed by: Isaura Fowler, RN - Fully Assessed Prescriptions as of 06/01/2024 - hydrOXYchloroQUINE (PLAQUENIL) 200 mg tablet TAKE 2 TABLETS ONCE DAILY - gabapentin (NEURONTIN) 100 mg capsule Take 100 mg by mouth three times a day. Taking 500 mg in am and 600 mg in pm - clonazePAM (KLONOPIN) 0.5 mg tablet Take 0.5 mg by mouth as directed. 2 tabs at night - sodium chloride 1 gram tab Take 1 g by mouth twice daily. - amLODIPine (NORVASC) 5 mg tablet Take by mouth once daily. - simvastatin (ZOCOR) 20 mg tablet Take 20 mg by mouth daily at bedtime. - metoprolol tartrate, short acting, (LOPRESSOR) 50 mg tablet Take 50 mg by mouth twice daily. - ferrous sulfate 325 mg (65 mg iron) tablet Take 325 mg by mouth. Three times weekly - DULoxetine (CYMBALTA) 30 mg capsule Take 30 mg by mouth twice daily. - amitriptyline (ELAVIL) 25 mg tablet Take 25 mg by mouth daily at bedtime. - ZOLMitriptan (ZOMIG) 2.5 mg tablet Take 2.5 mg by mouth as needed. - omeprazole (PRILOSEC) 40 mg capsule Take 40 mg by mouth twice daily. - omega-3/dha/epa/dpa/fish oil (OMEGA-3 2100 ORAL) Take by mouth once daily. - cholecalciferol (VITAMIN D) 1,000 unit tab tablet Take 1,000 Units by mouth once daily. - vitamin b complex capsule Take 1 capsule by mouth once daily. - Ascorbic Acid (VITAMIN C) 500 mg chew Take 500 mg by mouth once daily. Problem List As Of Date 06/01/2024 Noted Resolved Obesity (BMI 30.0-34.9) [E66.811] 09/22/2023 Depression [F32.A] 02/10/2023 Essential hypertension [I10] 02/10/2023 Gastroesophageal reflux disease [K21.9] 02/10/2023 Gout [M10.9] 05/17/2024 05/18/2024 Iron deficiency anemia [D50.9] 05/17/2024 Migraines [G43.909] 02/10/2023 Hyperlipidemia [E78.5] 05/17/2024 Rheumatoid arthritis (HCC) [M06.9] 05/29/2023 Paroxysmal SVT (supraventricular tachycardia) (*02/10/2023 Cannabis use without complication [F12.90] 05/19/2024 Encounter Status:Closed by ANABELL FELDER on 06/01/24[facility] POST[facility] EVALon [id number] POSTPROC EVALHNO ID: [id number] Author: KARTIK YE MD Service: Pain Management Author Type: Anesthesiologist Type: Anesthesia Postprocedure Evaluation Filed: 05/20/2024 11:55 Note Text: POST ANESTHESIA EVALUATION NOTE : 1945 Procedure Summary Date: 05/20/24 Room / Location: [place] [address] / [facility] Anesthesia Start: 739 Anesthesia Stop: 813 Procedure: ENDOSCOPIC RELEASE TUNNEL CARPAL (Left: Arm below elbow) Diagnosis: Carpal tunnel syndrome, left (Carpal tunnel syndrome, left [G56.02]) Surgeons: Mejia Meraz MD Responsible Provider: Kartik Ye MD Anesthesia Type: MAC ASA Status: 3 Anesthesia Type: MAC Last Vitals Vitals Value Taken Time BP 139/78 05/20/24 0830 Temp 36.7 ?C (98 ?F) 05/20/24 0830 HR SpO2 72 05/20/24 0834 Resp 15 05/20/24 0834 SpO2 95 % 05/20/24 0834 Vitals shown include unfiled device data. Post Anesthesia Patient Status Patient Evaluation: PACU. PACU/ICU Patient Condition: stable. Anticipated Disposition: phase 2 then home. Neurological Status: aware and responsive. Pulmonary Status: breathing comfortably on room air Airway Control: returned to baseline unsupported. Cardiovascular Status: stable. Pain Management: clinically adequate - multimodal analgesia pain management approach Postoperative Hydration: acceptable. Intraoperative Events: no significant anesthesia events Recommendation: continue current plan of care. Anesthesia Observations No Documentation SIGNATURE: Kartik Ye MD PATIENT NAME: Suma Scott DATE: May 20, 2024 TIME: 11:55 AM CSN: [id number] PRE-OPon 05-20-2024 ANES PRE-OPHNO ID: [id number] Author: KARTIK YE MD Service: Pain Management Author Type: Anesthesiologist Type: Anesthesia Preprocedure Evaluation Filed: 05/20/2024 07:06 Note Text: ANESTHESIOLOGY DAY OF SURGERY NOTE : 1945 Procedure Information Date/Time: 05/20/24729 Procedure: ENDOSCOPIC RELEASE TUNNEL CARPAL (Left: Arm below elbow) [facility]: [facility] Surgeons: Mejia Meraz MD Estimated body mass index is 29.84 kg/m? as calculated from the following: Height as of this encounter: 157.5 cm (5' 2 ). Weight as of this encounter: 74 kg (163 lb 2.3 oz). Most recent hematocrit and potassium results: No results found for this basename: HCT,HEMATOCRIT,K,POTASSIUM Relevant Problems CARDIO (+) Essential hypertension (+) Migraines (+) Paroxysmal SVT (supraventricular tachycardia) (HCC) GI (+) Gastroesophageal reflux disease NEURO-PSYCH (+) Migraines Other (+) Rheumatoid arthritis (HCC) I - PHYSICAL EVALUATION AIRWAY Patient intubated: No. Tracheostomy tube not present Mallampati: II. TM distance: >3 FB. Neck ROM: full ROM without neurological symptoms. Mouth opening: adequate. Additional exam findings: no II - ANESTHESIA PLAN ASA Score: 3 Anesthetic Plan: MAC NPO Status: adequate Beta Phil Monitoring Plan Monitoring plan: standard ASA. Post Procedure Analgesic Plan Postoperative analgesic plan: parenteral or oral opioids and multimodal analgesia. Patient / Surrogate agrees to blood products: blood products not planned Significant changes in the patient condition since the History and Physical, not otherwise documented in primary service progress note: no. Vitals Value Taken Time BP 177/84 05/20/24 0654 Pulse 71 05/20/24 0654 Resp 16 05/20/24 0654 Temp 36.8 ?C (98.3 ?F) 05/20/24 0654 SpO2 100 % 05/20/24 0654 Facility-Administered Medications as of 05/20/2024 Medication Dose Route Frequency lidocaine 10 mg/mL (1 %) 1-2 mg injection (XYLOCAINE) 0.1-0.2 mL INTRADERMAL PRN NaCl 0.9% iv flush bag 20 mL INTRAVENOUS PRN ceFAZolin iv piggyback 2 g in D5W (iso-osmotic) 100 mL (ANCEF) 2 g INTRAVENOUS Pre-Op Once Outpatient Medications as of 05/20/2024 Medication Sig hydrOXYchloroQUINE (PLAQUENIL) 200 mg tablet TAKE 2 TABLETS ONCE DAILY gabapentin (NEURONTIN) 100 mg capsule Take 100 mg by mouth three times a day. Taking 500 mg in am and 600 mg in pm sodium chloride 1 gram tab Take 1 g by mouth twice daily. amLODIPine (NORVASC) 5 mg tablet Take by mouth once daily. simvastatin (ZOCOR) 20 mg tablet Take 20 mg by mouth daily at bedtime. metoprolol tartrate, short acting, (LOPRESSOR) 50 mg tablet Take 50 mg by mouth twice daily. DULoxetine (CYMBALTA) 30 mg capsule Take 30 mg by mouth twice daily. amitriptyline (ELAVIL) 25 mg tablet Take 25 mg by mouth daily at bedtime. omeprazole (PRILOSEC) 40 mg capsule Take 40 mg by mouth twice daily. omega-3/dha/epa/dpa/fish oil (OMEGA-3 2100 ORAL) Take by mouth once daily. cholecalciferol (VITAMIN D) 1,000 unit tab tablet Take 1,000 Units by mouth once daily. vitamin b complex capsule Take 1 capsule by mouth once daily. Ascorbic Acid (VITAMIN C) 500 mg chew Take 500 mg by mouth once daily. clonazePAM (KLONOPIN) 0.5 mg tablet Take 0.5 mg by mouth as directed. 2 tabs at night ferrous sulfate 325 mg (65 mg iron) tablet Take 325 mg by mouth. Three times weekly ZOLMitriptan (ZOMIG) 2.5 mg tablet Take 2.5 mg by mouth as needed. I have interviewed and examined the patient. I have reviewed the medical record and/or the pre-anesthesia evaluation, pertinent labs, and test results. This contains updated information obtained within 48 hours of Surgery/Procedure. SIGNATURE: Kartik Ye MD PATIENT NAME: Suma Scott DATE: May 20, 2024 TIME: 7:06 AM CSN: [id number] [id number] Telephone (PLASMN) SUMA SCOTT ([id number]) 1945 F Date Time Provider Department 05/20/24 MEJIA MERAZ During your visit today, we recorded the following information about you: Rosa Maria Huang 05/20/2024 9:56 AM Signed [facility] calling, they state that patient is already on Klonopin 0.5mg takes 1-2 at bedtime and 1 in the morning as needed. Do you still want them to fill the prescription for the percocet? Please advise [phone] Rosa Maria Huang 05/20/2024 11:40 AM Signed Mejia Meraz MD You13 minutes ago (11:03 AM) Yes, please fill Percocet. Patient can use it as needed. Rosa Maria Huang 05/20/2024 11:40 AM Signed Pharmacy notified. Allergies As of Date: 05/20/2024 (No Known Allergies) Date Reviewed: 05/20/2024 Reviewed by: Isaura Fowler, RN - Fully Assessed Prescriptions as of 05/20/2024 - oxyCODONE-acetaminophen (PERCOCET) 5-325 mg tablet Take 1 tablet by mouth every 8 hours as needed for up to 10 doses. - doxycycline (VIBRA-TABS) 100 mg tablet Take 1 tablet by mouth two times a day for 7 days. - hydrOXYchloroQUINE (PLAQUENIL) 200 mg tablet TAKE 2 TABLETS ONCE DAILY - gabapentin (NEURONTIN) 100 mg capsule Take 100 mg by mouth three times a day. Taking 500 mg in am and 600 mg in pm - clonazePAM (KLONOPIN) 0.5 mg tablet Take 0.5 mg by mouth as directed. 2 tabs at night - sodium chloride 1 gram tab Take 1 g by mouth twice daily. - amLODIPine (NORVASC) 5 mg tablet Take by mouth once daily. - simvastatin (ZOCOR) 20 mg tablet Take 20 mg by mouth daily at bedtime. - metoprolol tartrate, short acting, (LOPRESSOR) 50 mg tablet Take 50 mg by mouth twice daily. - ferrous sulfate 325 mg (65 mg iron) tablet Take 325 mg by mouth. Three times weekly - DULoxetine (CYMBALTA) 30 mg capsule Take 30 mg by mouth twice daily. - amitriptyline (ELAVIL) 25 mg tablet Take 25 mg by mouth daily at bedtime. - ZOLMitriptan (ZOMIG) 2.5 mg tablet Take 2.5 mg by mouth as needed. - omeprazole (PRILOSEC) 40 mg capsule Take 40 mg by mouth twice daily. - omega-3/dha/epa/dpa/fish oil (OMEGA-3 2100 ORAL) Take by mouth once daily. - cholecalciferol (VITAMIN D) 1,000 unit tab tablet Take 1,000 Units by mouth once daily. - vitamin b complex capsule Take 1 capsule by mouth once daily. - Ascorbic Acid (VITAMIN C) 500 mg chew Take 500 mg by mouth once daily. Problem List As Of Date 05/20/2024 Noted Resolved Obesity (BMI 30.0-34.9) [E66.811] 09/22/2023 Depression [F32.A] 02/10/2023 Essential hypertension [I10] 02/10/2023 Gastroesophageal reflux disease [K21.9] 02/10/2023 Gout [M10.9] 05/17/2024 05/18/2024 Iron deficiency anemia [D50.9] 05/17/2024 Migraines [G43.909] 02/10/2023 Hyperlipidemia [E78.5] 05/17/2024 Rheumatoid arthritis (HCC) [M06.9] 05/29/2023 Paroxysmal SVT (supraventricular tachycardia) (*02/10/2023 Cannabis use without complication [F12.90] 05/19/2024 Encounter Status:Closed by ROSA MARIA HUANG on 05/20/24[facility] [place] [id number] RACHEL ID: [id number] Author: ISAURA FOWLER RN Service: Nursing Author Type: Registered Nurse Type: Nursing Progress Note Filed: 05/20/2024 08:22 Note Text: POST OP LEARNING RESPONSE INSTRUCTION PROVIDED TO: Patient and family member METHOD OF INSTRUCTION: Written instruction/Handouts Verbal instruction PATIENT / FAMILY RESPONSE: Verbalizes understanding of: INFECTION MANAGEMENT-Signs and symptoms of an infection and importance of contacting the physician MEDICAL REGIMEN-Importance of following prescribed medical regimen MEDICATION DOSE MISSED-Correct action to take if medication dose is missed MEDICATION PRESCRIBED-Accurate knowledge of prescribed medication prior to discharge MEDICATION ROUTE-Correct route for administration of the prescribed medication MEDICATION SIDE EFFECTS-Side effects associated with the medication that warrant a call to the physician PAIN MANAGEMENT-Effective strategies to manage pain in addition to pain medication PHYSICAL RESTRICTIONS-Physical restrictions and recommendations after discharge from the hospital POST-OPERATIVE INSTRUCTIONS-Correct actions to take to reduce postoperative complications FOLLOW-UP PLAN: Complete - No need for follow-up Patient instructed to call with any further issues SUPPLEMENTAL MATERIAL: None REFERRAL (RECOMMENDATION): None Electronically Signed By: Isaura Fowler RN In [facility]: [id number] Author: PEPPER VERGARA RN Service: ? Author Type: Registered Nurse Type: Nursing Progress Note Filed: 05/20/2024 07:12 Note Text: PRE OP LEARNING ASSESSMENT PROCEDURE/SURGERY: SURGERY: Left wrist READINESS TO LEARN COGNITIVE ABILITY: Alert and oriented MOTIVATION TO LEARN: Eager FAMILY SUPPORT: High - Very involved in pt care PATIENT LEARNS BEST BY: Verbal Instruction FACTORS AFFECTING LEARNING: None PHYSICAL LIMITATIONS AFFECTING LEARNING: None Electronically Signed By: Pepper Vergara RN In [facility] 05-20-2024 OPERATIVE NOHNO ID: [id number] Author: MEJIA MERAZ MD Service: Hand Surgery Author Type: Physician Type: Operative Report Filed: 05/20/2024 08:27 Note Text: OPERATIVE/PROCEDURE REPORT LOG ID: [id number] SURGERY/PROCEDURE DATE: 05/20/2024 INCISION/PROCEDURE START TIME: 7:55 AM INCISION CLOSE/PROCEDURE END TIME: 8:12 AM SURGEON(S)/PROCEDURALIST(S) AND PLUMBER(S): Surgeons and Role: * Mejia Meraz MD - Primary No Additional Staff SURGERY/PROCEDURE(S): Left endoscopic carpal tunnel release (CPT: 24411) ANESTHESIA: General SURGERY/PROCEDURE DETAILS: A time-out was performed to confirm patient identify and procedure. After adequate anesthesia was achieved, a non-sterile tourniquet was placed on the patient's upper arm on the side of the operation. The hand and forearm on the side of the operation were prepped and draped in the standard sterile fashion. An Esmarch was used to exsanguinated the hand and forearm, and the tourniquet was inflated to 250 mm Hg. The location of palmaris longus tendon was palpated and marked. The location of the hook of hamate was also palpated and marked. A longitudinal line was marked in the proximal palm, just radial to the hook of the hamate. This line represents the ulnar border of the carpal tunnel. A transverse incision was made in the proximal wrist crease overlying the palmaris longus tendon. Upon visualization of the palmaris longus, the palmaris longus was then retracted radially to expose the antebrachial fascia underneath. A radially based flap was then created in the antebrachial fascia to allow access to its under surface, and its distal extension into the undersurface of the transverse carpal ligament. From this incision, the antebrachial fascia proximal to the flap was divided under direct vision to increase access for the endoscope. The synovial scraper was then inserted to clear off all soft tissue attachment from the undersurface of the transverse carpal ligament, followed by insertion of dilators. The endoscope was then inserted into the carpal tunnel, with good visualization of the undersurface of the transverse carpal ligament. Distally, the perivascular fat pad was visualized. The entire transverse carpal ligament was divided under endoscopic view in a distal to proximal fashion. Distally, all ligamentous bands proximal to the perivascular fat pad were divided under endoscopic view to ensure complete decompression of the distal carpal tunnel. Complete release of the proximal portion of the transverse carpal ligament was confirmed via direct visual inspection. After this, the endoscope was withdrawn, and the tourniquet released. Hemostasis was achieved using bipolar cautery, and a total of 10 cc of 0.25% marcaine with 1:200,000 epinephrine was injected into the surgical area for post-operative pain control. The incision was closed in a single layer using 4-0 nylon sutures. A soft dressing was applied. All counts were correct at the conclusion of the case. The patient tolerated the procedure well without any immediate complication. The patient was transported to recovery room in good condition. PRE-OP/PRE-PROCEDURE DIAGNOSIS: Left carpal tunnel syndrome POST-OP/POST-PROCEDURE DIAGNOSIS: Same as Preop ESTIMATED BLOOD LOSS: 5 mls SPECIMENS: None IMPLANTABLE DEVICES: NONE DRAINS: None COMPLICATIONS: None CLOSURE TECHNIQUE: Primary PARTICIPATION IN SURGERY/PROCEDURE: I/primary surgeon/proceduralist performed the procedure with assistance. SIGNATURE: Mejia Meraz MD PATIENT NAME: Suma Scott DATE: May 20, 2024 TIME: 8:27 [facility]HIST[facility] PHYSICALon [id number] PHYSICALHNO ID: [id number] Author: VAIBHAV RODRIGUEZ APRN.REFINERY OPERATOR VISBREAKING Service: ? Author Type: Nurse Practitioner Type: H&P Filed: 05/19/2024 08:00 Note Text: HISTORY AND PHYSICAL EXAMINATION SERVICE DATE: 05/18/2024 SERVICE TIME: 9:47 AM PRIMARY CARE PHYSICIAN: Mayco Velasquez DO REASON FOR VISIT: Suma Scott is a 79 year old female who is scheduled for Left - ENDOSCOPIC RELEASE TUNNEL CARPAL at the request of Dr. Mejia Meraz for consultation. My final recommendation will be communicated back to the requesting physician by way of shared medical record or letter. Assessment Migraines Assessment: stable with current medication regimen Essential hypertension Assessment: stable and compliant with current medications Last 5 Encounter BP Readings: Date: BP: 05/18/2024 132/85 11/25/2023 122/87 08/17/2023 130/79 08/07/2022 124/71 Hyperlipidemia Assessment: stable with current medication regimen Paroxysmal SVT (supraventricular tachycardia) (HCC) Assessment: stable, asymptomatic, RRR today Follows with cardiology, Dr. Deb Zamora. Was optimized for knee surgery per 03/18/24 telephone encounter Gastroesophageal reflux disease Assessment: Managed and stable with current medication. Denies difficulty swallowing or any bleeding. Iron deficiency anemia Assessment: Stable. Denies bleeding. Labs 05/12/24 Hgb 13.5 Hct 39.1 Rheumatoid arthritis (HCC) Assessment: stable with current medication regimen Obesity (BMI 30.0-34.9) Assessment: Body mass index is 32.91 kg/m?. Cannabis use without complication Assessment: uses edibles to help her sleep. Agrees to abstain until after surgery ANESTHESIA FINDINGS: Intubation History: No history of difficult intubation Significant Anesthesia Considerations: none Airway History: No history of difficult airway Rosario Activity Status Index: METS: Walk indoors, such as around the house (1.75 METs) Do light work around the house, such as dusting or washing dishes (2.70 METs) Take care of self; that is eating, dressing, bathing, using the toilet (2.75 METs) Walk a block or two on level ground (2.75 METs) Do moderate work around the house, such as vacuuming, sweeping floors, or carrying in groceries (3.50 METs) Climb a flight of stairs or walk up a hill (5.50 METs) Participate in moderate recreational activites, such as golf, bowling, dancing, doubles tennis, or throwing a baseball or football (6.00 METs) Do heavy work around the house, such as scrubbing floors, lifting or moving heavy furniture (8.00 METs) DASI Score: 32.95 Patient denies any chest pain or undue shortness of breath with the above physical activity. Clinical Frailty Scale: 2. Well STOP-Bang Score: Snores loudly Has or is being treated for high blood pressure Patient over 50 years old Denies feeling tired, fatigued, or sleepy during the daytime Has not been observed to stop breathing or choking/gasping during sleep BMI less than or equal to 35 kg/m2 Does not have a large neck Non-male patient STOP-Bang Score: 3 [id number] Score: Age: >=75 Sex: female CHF history: No Hypertension history: Yes Stroke/TIA/thromboembolism history: No Vascular disease history: No Diabetes history: No [id number] Score: 4 ARISCAT Score: Age: 51-80 Preoperative SpO2: >=96% Respiratory infection in the last month: No Duration of surgery: <2 hrs Emergency procedure: No ARISCAT Score: I - PHYSICAL EVALUATION AIRWAY Patient intubated: No. Tracheostomy tube not present Mallampati: II. TM distance: >3 FB. Neck ROM: full ROM without neurological symptoms. Mouth opening: adequate. Short neck: no. Thick neck: no Nicholson present: no Lip Bite Test: II Microretrognathia/Micronagthia/Recessed Chin: No DENTAL Dental findings: teeth intact. II - ANESTHESIA PLAN Anesthetic plan additional comments: *PACC/TCI - anesthesia choice. Beta Phil Monitoring Plan Post Procedure Analgesic Plan Prepared for surgery: This patient is optimally prepared for surgery. CONSULTS: Patient does not require consults for optimization at this time. The Following Tests/Procedures Have Been Initiated: Labs not indicated per PACC protocol, EKG not indicated per PACC protocol Planned Anesthetic: Per anesthesia choice Subjective CHIEF COMPLAINT: Carpal tunnel syndrome, left [G56.02] HPI: Patient is a 79 year old FEMALE presenting for pre-op evaluation for the above procedure. Patient denies any chest pain, shortness of breath, palpitations, fever/chills, nausea/vomiting, fatigue, or diarrhea. REVIEW OF SYSTEMS: PAIN ASSESSMENT: Pain Pain Level: 2 Pain Location: Hand-Left Description: Numbness, Tingling Duration Amount of Time: 10 Duration Units: Years Frequency: Continuous Intervention/Comfort measure: Medication General: No weight loss, malaise or fevers. Neuro: Postive for migraines, Negative for TIA's Seizures Respiratory: No h (more content not included)...NormalOhiohealth [facility]in [facility] A1C with Estimated Average Gluon [id number] [Mass/Vol]108 mg/dLNormalThe Un[facility] Caldwell Physician GroupComment on above:Result Comment: PERFORMED BY: [facility] [address] [place] [address] PATHOLOGIST DERMATOLOGY TECHNICIAN TAVO JAVED M.D.Performed By: #### [id number], TSH3, CMP, A1C WTH eA, LIPID, CBC, BRANDIN, FE and TIBC ####[address]#### INSULIN ####[facility] ,HbA1c (Bld) [Mass fraction]5.4 %Normal4.3-5.6The [facility] Physician GroupComment on above: Result Comment: Increased risk for diabetes: 5.7 - 6.4 diabetes: >6.4 glycemic control for adults with diabetes: <7.0Performed By: #### [id number], TSH3, CMP, A1C WTH eA, LIPID, CBC, BRANDIN, FE and TIBC ####[place] [id number] [address]#### INSULIN ####[facility] ,Alanine aminotransferase [Enzymatic activity/volume] in Serum or PlasmaOrdered By: Mayco Velasquez on 38-25-5882GMN [Catalytic activity/Vol]Alanine aminotransferase [Enzymatic activity/volume] in Serum or Plasma7-52[facility] CenterAlbumin [Mass/volume] in Serum or Plasma by Bromocresol green (BCG) dye binding methoOrdered By: Mayco Velasquez on 36-85-8122Yhikjzk BCG dye [Mass/Vol]Albumin [Mass/volume] in Serum or Plasma by Bromocresol green (BCG) dye binding metho3.5-5.7FMercy Health St. Elizabeth Boardman HospitalAlkaline phosphatase [Enzymatic activity/volume] in Serum or PlasmaOrdered By: Mayco Velasquez on 31-41-7485YJB [Catalytic activity/Vol]Alkaline phosphatase [Enzymatic activity/volume] in Serum or Hpfckp32-069ApfkdqjcwAdena Pike Medical Center Aspartate aminotransferase [Enzymatic activity/volume] in Serum or PlasmaOrdered By: Mayco Velasquez on 07-50-0449BHB [Catalytic activity/Vol]Aspartate aminotransferase [Enzymatic activity/volume] in Serum or Jzedkj45-53NdwmmyjejAdena Pike Medical CenterBasophils Auto (Bld) [#/Vol]Ordered By: Mayco Velasquez on 96-61-3856Pbqmjumtl (Bld) [#/Vol]Automated basophil count0.0-0.2FMercy Health St. Elizabeth Boardman HospitalBasophils/100 WBC Auto (Bld)Ordered By: Mayco Velasquez on 13-82-7949Ifqrrkvfh/100 WBC (Bld)Automated basophil %.[facility] CenterBilirubin.total [Mass/volume] in Serum or PlasmaOrdered By: Mayco Velasquez on 06-84-5357Xjdzrudib [Mass/Vol]Bilirubin.total [Mass/volume] in Serum or Plasma0.3-1.0[facility] CenterBlood estimated average glucose determination by estimation from glycated hemoglobinOrdered By: Mayco Velasquez on 38-65-3277Ifvwekd glucose Estimated from glycated hemoglobin (Bld) [Mass/Vol] Glucose mean value [Mass/volume] in Blood Estimated from glycated hemoglobin [facility] CenterCalcium [Mass/volume] in Serum or PlasmaOrdered By: Mayco Velasquez on 43-92-8863Cmqcajk [Mass/Vol]Calcium [Mass/volume] in Serum or Plasma8.6-10.3FMercy Health St. Elizabeth Boardman HospitalCarbon dioxide, total [Moles/volume] in Serum or PlasmaOrdered By: Mayco Velasquez on 37-38-8935MB8 [Moles/Vol]Carbon dioxide, total [Moles/volume] in Serum or ZvfxorEtnu78.0-31.0 [facility] CenterChloride [Moles/volume] in Serum or Plasma Ordered By: Mayco Velasquez on 48-40-6544Jxmqvzco [Moles/Vol]Chloride [Moles/volume] in Serum or Tocwrr75-342OhwsrxvkqAdena Pike Medical Center Cholesterol [Mass/volume] in Serum or PlasmaOrdered By: Mayco Velasquez on 23-05-6123Luwlribffmd [Mass/Vol]Cholesterol [Mass/volume] in Serum or PlasmaLow 140-200[facility] CenterComment on above:Chol less than 200 mg/dl low riskChol 201-239 mg/dl borderline riskChol 240 mg/dl and greater high riskCholesterol in HDL [Mass/volume] in Serum or PlasmaOrdered By: Mayco Velasquez on 52-56-9155Fsivpqnduuo in HDL [Mass/Vol]Serum or plasma high density lipoprotein (HDL) cholesterol uhzzlwmszsl00-13DdkiykeafAdena Pike Medical Center Comment on above:HDL CHOL ATP-III CLASSIFICATION Cardiovascular RiskHDL > or equal to 60 mg/dL LOWHDL < 40 mg/dL HIGHCholesterol in LDL Calc [Mass/Vol] Ordered By: Mayco Velasquez on 05-29-7581Ifpryheahoj in LDL [Mass/Vol]Cholesterol in LDL [Mass/volume] in Serum or Plasma by calculation0-100[facility] CenterComment on above:LDL ATP III CLASSIFICATIONLDL less than 100 mg/dL OptimalLDL 100-129 mg/dL Near or above zrtzctdXLR127-891 mg/dL Borderline highLDL 160-189 mg/dL HighLDL greater than 189 mg/dL Very highCholesterol in VLDL Calc [Mass/Vol]Ordered By: Mayco Velasquez on 31-96-5746Sjknihphpdp in VLDL [Mass/Vol]Cholesterol in VLDL [Mass/volume] in Serum or Plasma by calculation [facility] CenterComplete Blood Count Auto Diffon 05-12-2024 Basophils (Bld) [#/Vol]0.1 10*3/uLNormal0.0-0.2The [facility] Comment on above:Result Comment: PERFORMED BY: [address] [place] [address] PATHOLOGIST DERMATOLOGY TECHNICIAN TAVO JAVED M.D.Performed By: #### [id number], TSH3, CMP, A1C WTH eA, LIPID, CBC, BRANDIN, FE and TIBC ####[address]#### INSULIN ####[facility] ,Basophils/100 WBC (Bld)1.0 %Normal.The [facility] Physician GroupComment on above:Performed By: #### [id number], TSH3, CMP, A1C WTH eA, LIPID, CBC, BRANDIN, FE and TIBC ####[address]#### INSULIN ####[facility] ,Eosinophils (Bld) [#/Vol]0.2 10*3/uLNormal 0.0-0.45The [facility] GroupComment on above:Performed By: #### [id number], TSH3, CMP, A1C WTH eA, LIPID, CBC, BRANDIN, FE and TIBC ####[address]#### INSULIN ####[facility] ,Eosinophils/100 WBC (Bld)3.9 %Normal.The [facility]ician GroupComment on above:Performed By: #### [id number], TSH3, CMP, A1C WTH eA, LIPID, CBC, BRANDIN, FE and TIBC ####[address]#### INSULIN ####[facility] ,Erythrocyte distribution width (RBC) [Ratio]14.4 %Rfvcyh73.9-15.3The [facility] GroupComment on above:Performed By: #### [id number], TSH3, CMP, A1C WTH eA, LIPID, CBC, BARNDIN, FE and TIBC ####[address]#### INSULIN ####[facility] ,Hematocrit (Bld) [Volume fraction]39.1 %Ffqyow14.0-46.4The [facility]ician GroupComment on above:Performed By: #### [id number], TSH3, CMP, A1C WTH eA, LIPID, CBC, BRANDIN, FE and TIBC ####[address]#### INSULIN ####[facility] ,Hemoglobin (Bld) [Mass/Vol]13.5 g/dL Fkkyhn42.8-15.4The [facility] GroupComment on above:Performed By: #### [id number], TSH3, CMP, A1C WTH eA, LIPID, CBC, BRANDIN, FE and TIBC ####[address]#### INSULIN ####[facility] ,Lymphocytes (Bld) [#/Vol]1.8 10*3/uLNormal1.00-4.8The [facility] GroupComment on above:Performed By: #### [id number], TSH3, CMP, A1C WTH eA, LIPID, CBC, BRANDIN, FE and TIBC ####[address]#### INSULIN ####[facility] ,Lymphocytes/100 WBC (Bld)33.3 %Normal.The [facility]ician GroupComment on above:Performed By: #### [id number], TSH3, CMP, A1C WTH eA, LIPID, CBC, BRANDIN, FE and TIBC ####[address]#### INSULIN ####[facility] ,MCH (RBC) [Entitic mass]29.4 nsBryssd39.7-34.3The [facility] GroupComment on above:Performed By: #### [id number], TSH3, CMP, A1C WTH eA, LIPID, CBC, BRANDIN, FE and TIBC ####[address]#### INSULIN ####[facility] ,MCV (RBC) [Entitic vol]85.1 fLNormal 80-100The [facility] GroupComment on above:Performed By: #### [id number], TSH3, CMP, A1C WTH eA, LIPID, CBC, BRANDIN, FE and TIBC ####[address]#### INSULIN ####[facility] ,Mean Corpuscular HGB Conc34.6 g/sYPacvin39.0-35.0The [facility] GroupComment on above:Performed By: #### [id number], TSH3, CMP, A1C WTH eA, LIPID, CBC, BRANDIN, FE and TIBC ####[address]#### INSULIN ####[facility] ,Monocytes (Bld) [#/Vol]0.7 10*3/uLNormal0.0-0.8The [facility] GroupComment on above:Performed By: #### [id number], TSH3, CMP, A1C WTH eA, LIPID, CBC, BRANDIN, FE and TIBC ####[address]#### INSULIN ####[facility] ,Monocytes/100 WBC (Bld)11.8 %Normal. The [facility]ician GroupComment on above:Performed By: #### [id number], TSH3, CMP, A1C WTH eA, LIPID, CBC, BRANDIN, FE and TIBC ####[address]#### INSULIN ####[facility] ,Neutrophils (Bld) [#/Vol]2.7 10*3/uLNormal1.8-7.7The [facility] GroupComment on above:Performed By: #### [id number], TSH3, CMP, A1C WTH eA, LIPID, CBC, BRANDIN, FE and TIBC ####[address]#### INSULIN ####[facility] , Neutrophils/100 WBC (Bld)50.0 %Normal.The [facility]ician GroupComment on above:Performed By: #### [id number], TSH3, CMP, A1C WTH eA, LIPID, CBC, BRANDIN, FE and TIBC ####[address]#### INSULIN ####[facility] ,NRBC%0.1 /100{WBC}Normal0-0.5The [facility] GroupComment on above:Performed By: #### [id number], TSH3, CMP, A1C WTH eA, LIPID, CBC, BRANDIN, FE and TIBC ####[address]#### INSULIN ####[facility] ,Platelet mean volume (Bld) [Entitic vol]7.6 fLNormal6.3-10.7The [facility] GroupComment on above:Performed By: #### [id number], TSH3, CMP, A1C WTH eA, LIPID, CBC, BRANDIN, FE and TIBC ####[place] [address] [place]#### INSULIN ####[facility] ,Platelets (Bld) [#/Vol]332 10*3/aVObnpeo101-276Cdl [facility] GroupComment on above:Performed By: #### [id number], TSH3, CMP, A1C WTH eA, LIPID, CBC, BRANDIN, FE and TIBC ####[place] [address] [place]#### INSULIN ####[facility] ,RBC (Bld) [#/Vol]4.59 10*6/uLNormal3.60-5.00The [facility] GroupComment on above: Performed By: #### [id number], TSH3, CMP, A1C WTH eA, LIPID, CBC, BRANDIN, FE and TIBC ####[place] [address] [place]#### INSULIN ####[facility] ,WBC (Bld) [#/Vol]5.5 10*3/uLNormal3.8-11.6The [facility] GroupComment on above:Performed By: #### [id number], TSH3, CMP, A1C WTH eA, LIPID, CBC, BRANDIN, FE and TIBC ####[address]#### INSULIN ####[facility] ,Comprehensive Metabolic Panel 34-53-8021Gfopmgk [Mass/Vol]4.9 g/dLNormal3.5-5.7The [facility] GroupComment on above:Order Comment: FASTING.JKWPerformed By: #### [id number], TSH3, CMP, A1C WTH eA, LIPID, CBC, BRANDIN, FE and TIBC ####[address]#### INSULIN ####[facility] ,Albumin/Globulin [Mass ratio]2.3 {ratio}NormalThe [facility] GroupComment on above:Order Comment: FASTING.JKWPerformed By: #### [id number], TSH3, CMP, A1C WTH eA, LIPID, CBC, BRANDIN, FE and TIBC ####[address]#### INSULIN ####[facility] ,ALP [Catalytic activity/Vol]75 U/JVnoflk60-998Ckc [facility] GroupComment on above:Order Comment: FASTING.JKWPerformed By: #### [id number], TSH3, CMP, A1C WTH eA, LIPID, CBC, BRANDIN, FE and TIBC ####[address]#### INSULIN ####[facility] ,ALT [Catalytic activity/Vol]24 U/LNormal7-52The [facility] GroupComment on above:Order Comment: FASTING.JKWPerformed By: #### [id number], TSH3, CMP, A1C WTH eA, LIPID, CBC, BRANDIN, FE and TIBC ####[address]#### INSULIN ####[facility] ,Anion gap [Moles/Vol]9.9 mmol/L Normal6.0-15.0The [facility] GroupComment on above:Order Comment: FASTING.JKWPerformed By: #### [id number], TSH3, CMP, A1C WTH eA, LIPID, CBC, BRANDIN, FE and TIBC ####[address]#### INSULIN ####[facility] ,AST [Catalytic activity/Vol]30 U/TAkpxdy54-10Ycs [facility] GroupComment on above:Order Comment: FASTING.JKWPerformed By: #### [id number], TSH3, CMP, A1C WTH eA, LIPID, CBC, BRANDIN, FE and TIBC ####[address]#### INSULIN ####[facility] ,Bilirubin [Mass/Vol]0.5 mg/dL Normal0.3-1.0The [facility] Medical CenterComment on above:Order Comment: FASTING.JKWPerformed By: #### [id number], TSH3, CMP, A1C WTH eA, LIPID, CBC, BRANDIN, FE and TIBC ####[place] [address] [place]#### INSULIN ####[facility] ,Calcium [Mass/Vol]10.1 mg/dL Normal8.6-10.3The [facility] GroupComment on above:Order Comment: FASTING.JKWPerformed By: #### [id number], TSH3, CMP, A1C WTH eA, LIPID, CBC, BRANDIN, FE and TIBC ####[address]#### INSULIN ####[facility] ,Chloride [Moles/Vol]102 mmol/L Nyhhxz04-277Ikc [facility] GroupComment on above:Order Comment: FASTING.JKWPerformed By: #### [id number], TSH3, CMP, A1C WTH eA, LIPID, CBC, BRANDIN, FE and TIBC ####[address]#### INSULIN ####[facility] ,CO2 [Moles/Vol]31.9 mmol/LHigh 21.0-31.0The [facility] GroupComment on above:Order Comment: FASTING.JKWPerformed By: #### [id number], TSH3, CMP, A1C WTH eA, LIPID, CBC, BRANDIN, FE and TIBC ####[address]#### INSULIN ####[facility] ,Creatinine [Mass/Vol]0.88 mg/dL Normal0.60-1.20The [facility] GroupComment on above:Order Comment: FASTING.JKWPerformed By: #### [id number], TSH3, CMP, A1C WTH eA, LIPID, CBC, BRANDIN, FE and TIBC ####[address]#### INSULIN ####[facility] ,GFR/1.73 sq M.predicted MDRD (S/P/Bld) [Vol rate/Area]mL/min/{1.73_m2}NormalThe [facility] Comment on above:Order Comment: FASTING.JKWPerformed By: #### [id number], TSH3, CMP, A1C WTH eA, LIPID, CBC, BRANDIN, FE and TIBC ####[address]#### INSULIN ####[facility] ,Globulin (S) [Mass/Vol]2.1 g/dLNormalThe [facility] Comment on above:Order Comment: FASTING.JKWPerformed By: #### [id number], TSH3, CMP, A1C WTH eA, LIPID, CBC, BRANDIN, FE and TIBC ####[address]#### INSULIN ####[facility] ,Glucose [Mass/Vol]95 mg/cUFdjylg22-638Ekb [facility] GroupComment on above:Order Comment: FASTING.JKWResult Comment: Random Glucose Reference Range is dependent on time and content of last meal. Glucose of more than 200 mg/dL in a nonstressed, ambulatory subject supports the diagnosis of Diabetes Mellitus. ADA recommended reference rangePerformed By: #### [id number], TSH3, CMP, A1C WTH eA, LIPID, CBC, BRANDIN, FE and TIBC ####[address]#### INSULIN ####[facility] ,Potassium [Moles/Vol]4.8 mmol/LNormal3.5-5.1The [facility] GroupComment on above: Order Comment: FASTING.JKWPerformed By: #### [id number], TSH3, CMP, A1C WTH eA, LIPID, CBC, BRANDIN, FE and TIBC ####[address]#### INSULIN ####[facility] ,Protein [Mass/Vol]7.0 g/dLNormal6.4-8.9The [facility] GroupComment on above: Order Comment: FASTING.JKWPerformed By: #### [id number], TSH3, CMP, A1C WTH eA, LIPID, CBC, BRANDIN, FE and TIBC ####[facility] [place] [address] [place]#### INSULIN ####[facility] ,Sodium [Moles/Vol]139 mmol/AKeunye796-169Ujb [facility] GroupComment on above: Order Comment: FASTING.JKWPerformed By: #### [id number], TSH3, CMP, A1C WTH eA, LIPID, CBC, BRANDIN, FE and TIBC ####[address]#### INSULIN ####[facility] ,Urea nitrogen [Mass/Vol]10 mg/dLNormal7-25The [facility] GroupComment on above:Order Comment: FASTING.JKWPerformed By: #### [id number], TSH3, CMP, A1C WTH eA, LIPID, CBC, BRANDIN, FE and TIBC ####[address]#### INSULIN ####[facility] ,Creatinine [Mass/volume] in Serum or PlasmaOrdered By: Mayco Velasquez on 60-47-9471Fkqhqmracf [Mass/Vol]Creatinine [Mass/volume] in Serum or Plasma0.60-1.20[facility] CenterEosinophils Auto (Bld) [#/Vol]Ordered By: Mayco Velasquez on 70-80-7882Tfmgptqudjr (Bld) [#/Vol]Automated eosinophil count0.0-0.45[facility] CenterEosinophils/100 WBC Auto (Bld)Ordered By: Mayco Velasquez on 34-92-8365Cyoumjkzgqd/100 WBC (Bld)Automated eosinophil %.[facility] CenterErythrocyte distribution width Auto (RBC) [Ratio]Ordered By: Mayco Velasquez on 34-92-6166Szouauzjlyz distribution width (RBC) [Ratio]Erythrocyte distribution width [Ratio] by Automated count11.9-15.3FMercy Health St. Elizabeth Boardman HospitalFerritinon 24-44-7728Lcwqkozv [Mass/Vol]122.6 ng/bOQhrjxx29.0-306.8The [facility] Physician GroupComment on above:Order Comment: FASTING.JKWPerformed By: #### [id number], TSH3, CMP, A1C WTH eA, LIPID, CBC, BRANDIN, FE and TIBC ####[facility] [address]#### INSULIN ####[facility] ,Ferritin [Mass/volume] in Serum or Plasma Ordered By: Mayco Velasquez on 41-01-2372Nofnnlli [Mass/Vol]Ferritin [Mass/volume] in Serum or Myxxou57.0-306.8[facility] CenterGlobulin Calc (S) [Mass/Vol]Ordered By: Mayco Velasquez on 97-50-5089Bhzduijy (S) [Mass/Vol]Serum globulin measurement by calculation (mass/volume)[facility] CenterGlucose [Mass/volume] in Serum or PlasmaOrdered By: Mayco Velasquez on 49-32-0192Qixokpe [Mass/Vol]Glucose [Mass/volume] in Serum or Dtkpjx74-255 [facility] CenterComment on above:ADA recommended reference rangeRandom Glucose Reference Range is dependent on time and content of last meal. Glucose of more than 200 mg/dL in a nonstressed, ambulatory subject supports the diagnosisof Diabetes Mellitus.Hematocrit Auto (Bld) [Volume fraction]Ordered By: Mayco Velasquez on 77-90-3628Unzlnclood (Bld) [Volume fraction]Hematocrit [Volume Fraction] of Blood by Automated count34.0-46.4 [facility] CenterHemoglobin A1c/Hemoglobin.total in BloodOrdered By: Mayco Velasquez on 94-79-5218FjX3t (Bld) [Mass fraction]Hemoglobin A1c percentage4.3-5.6FMercy Health St. Elizabeth Boardman HospitalComment on above:Increased risk for diabetes: 5.7 - 6.4diabetes: >6.4glycemic control for adults with diabetes: <7.0Hemoglobin [Mass/volume] in BloodOrdered By: Mayco Velasquez on 39-27-6057Ezjhlshadh (Bld) [Mass/Vol]Hemoglobin [Mass/volume] in Blood11.8-15.4 [facility] CenterInsulinon 19-90-9266Ycsmyzh36.0 u[iU]/mLNormal 2.6-24.9The [facility] Physician GroupComment on above:Result Comment: Performed at: - [facility] [id number] Sizing Machine Tender: Jourdan Gonzales PhD, Phone: [phone] PERFORMED BY: [facility] [address] [place] [address] PATHOLOGIST DERMATOLOGY TECHNICIAN TAVO JAVED M.D.Performed By: #### [id number], TSH3, CMP, A1C WTH eA, LIPID, CBC, BRANDIN, FE and TIBC ####[address]#### INSULIN ####[facility] ,Iron [Mass/volume] in Serum or PlasmaOrdered By: Mayco Velasquez on 46-67-4659Nfcy [Mass/Vol]Iron [Mass/volume] in Serum or Isftse97-510IoddjjyksAdena Pike Medical CenterIron and TIBC Profileon 05-12-2024% Iron Tgrnckkamo88.9 %Eaa57-03Urd [facility]aughters Medical CenterComment on above:Order Comment: FASTING.JKWPerformed By: #### [id number], TSH3, CMP, A1C WTH eA, LIPID, CBC, BRANDIN, FE and TIBC ####[address]#### INSULIN ####[facility] ,Iron [Mass/Vol]65 ug/fAJltybo92-624Qdb [facility] GroupComment on above:Order Comment: FASTING.JKWPerformed By: #### [id number], TSH3, CMP, A1C WTH eA, LIPID, CBC, BRANDIN, FE and TIBC ####[address]#### INSULIN ####[facility] ,Total Iron Binding Zewovcnh631 ug/dLNormal 255-450The [facility] Physician GroupComment on above:Order Comment: FASTING.JKW Performed By: #### [id number], TSH3, CMP, A1C WTH eA, LIPID, CBC, RBANDIN, FE and TIBC ####[facility]#### INSULIN ####[facility] ,Transferrin [Mass/Vol]233 mg/gZZkohqp973-150 The [facility] Physician GroupComment on above:Order Comment: FASTING.JKW Performed By: #### [id number], TSH3, CMP, A1C WTH eA, LIPID, CBC, BRANDIN, FE and TIBC ####[facility]#### INSULIN ####[facility] ,Leukocytes [#/volume] corrected for nucleated erythrocytes in Blood by Automated counOrdered By: Mayco Velasquez on 65-90-2417BQC corrected for nucl RBC Auto (Bld) [#/Vol]Leukocytes [#/volume] corrected for nucleated erythrocytes in Blood by Automated coun3.8-11.6FMercy Health St. Elizabeth Boardman HospitalLipid Panelon 53-14-6215Heqzlocwumf [Mass/Vol]124 mg/aUBqi481-648 The [facility] Physician GroupComment on above:Order Comment: FASTING.JKWResult Comment: Chol less than 200 mg/dl low risk Chol 201-239 mg/dl borderline risk Chol 240 mg/dl and greater high riskPerformed By: #### [id number], TSH3, CMP, A1C WTH eA, LIPID, CBC, BRANDIN, FE and TIBC ####[place] [address] [place] [address] [place]#### INSULIN ####[facility] , Cholesterol in HDL [Mass/Vol]63 mg/kNSyckic87-68Iob [facility] Comment on above:Order Comment: FASTING.JKWResult Comment: HDL CHOL ATP-III CLASSIFICATION Cardiovascular Risk HDL > or equal to 60 mg/dL LOW HDL < 40 mg/dL HIGHPerformed By: #### [id number], TSH3, CMP, A1C WTH eA, LIPID, CBC, BRANDIN, FE and TIBC ####[address]#### INSULIN ####[facility] , Cholesterol.total/Cholesterol in HDL [Mass ratio]2.0 {ratio}Normal<5.0The [facility] Physician GroupComment on above:Order Comment: FASTING.JKWPerformed By: #### [id number], TSH3, CMP, A1C WTH eA, LIPID, CBC, BRANDIN, FE and TIBC ####[address]#### INSULIN ####[facility] ,LDL Cholesterol,Wrdsanzhxw92 mg/dLNormal0-100 The [facility] Physician GroupComment on above:Order Comment: FASTING.JKWResult Comment: LDL ATP III CLASSIFICATION LDL less than 100 mg/dL Optimal LDL 100-129 mg/dL Near or above optimal LDL 130-159 mg/dL Borderline high LDL 160-189 mg/dL High LDL greater than 189 mg/dL Very highPerformed By: #### [id number], TSH3, CMP, A1C WTH eA, LIPID, CBC, BRANDIN, FE and TIBC ####[address]#### INSULIN ####[facility] , Triglyceride w/Nbksik921 mg/dLNormal0-149The [facility] Physician GroupComment on above:Order Comment: FASTING.JKWResult Comment: TRIG ATP III CLASSIFICATION TRIG less than 150 mg/dL Normal TRIG 150-199 mg/dL Borderline high TRIG 200-500 mg/dL High TRIG greater than 500 mg/dL Very high Standard traceable to the Center for Disease Conrtrol and Prevention (CDC) test method.Performed By: #### [id number], TSH3, CMP, A1C WTH eA, LIPID, CBC, BRANDIN, FE and TIBC ####[address]#### INSULIN ####[facility] ,VLDL UVVWAKUIQQC81 mg/dLNoCone Health Alamance Regional Physician GroupComment on above:Order Comment: FASTING.JKWPerformed By: #### [id number], TSH3, CMP, A1C WTH eA, LIPID, CBC, BRANDIN, FE and TIBC ####[facility] [address] [address]#### INSULIN ####[facility] ,Lymphocytes Auto (Bld) [#/Vol]Ordered By: Mayco Velasquez on 52-30-6650Vgfwtlstahr (Bld) [#/Vol]Lymphocytes [#/volume] in Blood by Automated count1.00-4.8[facility] CenterLymphocytes/100 WBC Auto (Bld)Ordered By: Mayco Velasquez on 21-77-0979Fsuynpqwbwv/100 WBC (Bld)Lymphocytes/100 leukocytes in Blood by Automated count.[facility] CenterH Auto (RBC) [Entitic mass] Ordered By: Mayco Velasquez on 08-00-4774NAG (RBC) [Entitic mass]MCH [Entitic mass] by Automated count24.7-34.3FUC [facility] HospitalHC Auto (RBC) [Mass/Vol]Ordered By: Mayco Velasquez on 03-31-6366BANH (RBC) [Mass/Vol]MCHC [Mass/volume] by Automated count32.0-35.0[facility] CenterMCV Auto (RBC) [Entitic vol]Ordered By: Mayco Velasquez on 55-88-8237JMR (RBC) [Entitic vol]MCV [Entitic volume] by Automated znwui28-740XgbquympiAdena Pike Medical CenterMonocytes Auto (Bld) [#/Vol]Ordered By: Mayco Velasquez on 05-12-2024 Monocytes (Bld) [#/Vol]Automated blood monocyte count0.0-0.8[facility] CenterMonocytes/100 WBC Auto (Bld)Ordered By: Mayco Velasquez on 05-12-2024 Monocytes/100 WBC (Bld)Automated monocyte %.[facility] Neutrophils Auto (Bld) [#/Vol]Ordered By: Mayco Velasquez on 44-02-1293Wowmbccshee (Bld) [#/Vol]Neutrophils [#/volume] in Blood by Automated count1.8-7.7FMercy Health St. Elizabeth Boardman HospitalNeutrophils/100 WBC Auto (Bld)Ordered By: Mayco Velasquez on 31-76-1829Kfgkyjfmozv/100 WBC (Bld)Automated neutrophil %.[facility] CenterNo Panel InformationOrdered By: Mayco Velasquez on 05-12-2024 Estimated GFR (CKD-EPI)> 60.0 mL/MinAdena Pike Medical CenterPharmacy Creatinine Clearance (ChemN/AFMercy Health St. Elizabeth Boardman HospitalNucleated erythrocytes [Presence] in Blood by Automated countOrdered By: Mayco Velasquez on 49-02-9421Rbitnjhij RBC Auto Ql (Bld)Nucleated erythrocytes [Presence] in Blood by Automated count0-0.5FMercy Health St. Elizabeth Boardman HospitalPlatelet mean volume Auto (Bld) [Entitic vol]Ordered By: Mayco Velasquez on 99-07-8311Hotlwxes mean volume (Bld) [Entitic vol]Platelet mean volume [Entitic volume] in Blood by Automated count6.3-10.7FMercy Health St. Elizabeth Boardman HospitalPlatelets Auto (Bld) [#/Vol]Ordered By: Mayco Velasquez on 01-59-9722Ljpnhsqvc (Bld) [#/Vol]Platelets [#/volume] in Blood by Automated -126OvxklzzsuAdena Pike Medical Center Potassium [Moles/volume] in Serum or PlasmaOrdered By: Mayco Velasquez on 99-92-2788Uxgqpllme [Moles/Vol]Potassium [Moles/volume] in Serum or Plasma 3.5-5.1FMercy Health St. Elizabeth Boardman HospitalProtein [Mass/volume] in Serum or Plasma Ordered By: Mayco Velasquez on 24-91-7805Vywwmwr [Mass/Vol]Protein [Mass/volume] in Serum or Plasma6.4-8.9[facility] Medical CenterRBC Auto (Bld) [#/Vol] Ordered By: Mayco Velasquez on 85-12-0607GHS (Bld) [#/Vol]Erythrocytes [#/volume] in Blood by Automated count3.60-5.00[facility] Hospitalerum or plasma albumin/globulin mass ratioOrdered By: Mayco Velasquez on 05-12-2024 Albumin/Globulin [Mass ratio]Serum or plasma albumin/globulin mass ratio [facility] Hospitalerum or plasma anion gap determinationOrdered By: Mayco Velasquez on 02-63-2637Tgayg gap [Moles/Vol]Serum or plasma anion gap determination6.0-15.0[facility] Hospitalerum or plasma insulin measurement (units/volume)Ordered By: Mayco Velasquez on 17-31-0040Dmeiokt QnSerum or plasma insulin measurement (units/volume)2.6-24.9Adena Pike Medical CenterComment on above:Performed at: - [place] [id number] Director: Jourdan Gonzales PhD, Phone: [phone] or plasma iron binding capacity measurement (mass/volume)Ordered By: Mayco Velasquez on 43-25-8708Qmvu binding capacity [Mass/Vol]Iron binding capacity [Mass/volume] in Serum or Vpvvkz664-305RyepnbzbcWilson Memorial Hospitalerum or plasma iron saturation measurement (mass fraction)Ordered By: Mayco Velasquez on 19-06-4015Sqwc saturation [Mass fraction]Iron saturation [Mass Fraction] in Serum or TxbjjuUdq85-79XrresbhrhWilson Memorial Hospitalerum or plasma total cholesterol/high density lipoprotein (HDL) cholesterol mass ratOrdered By: Mayco Velasquez on 33-73-5165Npdqbmgggfs.total/Cholesterol in HDL [Mass ratio]Serum or plasma total cholesterol/high density lipoprotein (HDL) cholesterol mass rat<5.0 Wilson Memorial Hospitalodium [Moles/volume] in Serum or PlasmaOrdered By: Mayco Velasquez on 63-17-8729Jdonir [Moles/Vol]Sodium [Moles/volume] in Serum or Gdnqjp512-632VnaowyseuAdena Pike Medical CenterThyroid Stimulating Hormoneon 98-00-0021WVN Qn2.40 m[IU]/LNormal0.45-5.33The [facility]dwell Physician GroupComment on above:Order Comment: FASTING.JKWPerformed By: #### [id number], TSH3, CMP, A1C WTH eA, LIPID, CBC, BRANDIN, FE and TIBC ####[facility] [address] [place] [address] [facility]#### INSULIN ####[facility] , Thyrotropin [Units/volume] in Serum or PlasmaOrdered By: Mayco Velasquez on 57-32-5781LZS QnThyrotropin [Units/volume] in Serum or Plasma0.45-5.33A[facility] Pike Medical CenterTransferrin [Mass/volume] in Serum or PlasmaOrdered By: Mayco Velasquez on 67-75-6033Hpuibavgquo [Mass/Vol]Transferrin [Mass/volume] in Serum or Dymwgo671-482OblhaqwepAdena Pike Medical CenterTriglyceride [Mass/volume] in Serum or PlasmaOrdered By: Mayco Velasquez on 05-12-2024 Triglyceride [Mass/Vol]Triglyceride [Mass/volume] in Serum or Plasma0-149 [facility]ike Medical CenterComment on above:TRIG ATP III CLASSIFICATIONTRIG less than 150 mg/dL NormalTRIG 150-199 mg/dL Borderline highTRIG 200-500 mg/dL High TRIG greater than 500 mg/dL Very highStandard traceable to the Center for Disease Conrtrol and Prevention (CDC) test method. Urea nitrogen [Mass/volume] in Serum or PlasmaOrdered By: Mayco Velasquez on 17-42-4970Cvqv nitrogen [Mass/Vol]Urea nitrogen [Mass/volume] in Serum or Plasma 7-25Adena Pike Medical CenterVitamin D 25 Hydroxy Totalon 05-12-2024 Vitamin D 25 Hydroxy Total39.9 ng/qMNqcyrl80-927Ihp [facility] Comment on above:Order Comment: FASTING.JKWResult Comment: VITAMIN D STATUS 25(OH)VITAMIN D RANGE (ng/mL) Deficient <20 Insufficient 20 to <30 Sufficient 30 to 100 Reference: Sarah MF,Ligia NC, Skylar BALDERAS, et al. Evaluation,treatment, and prevention of vitamin D deficiency; an Endocrine Society clinical practice guideline. JCEM. 2010; 96(7):1911-30. PERFORMED BY: [facility] [address] [place] [address] PATHOLOGIST DERMATOLOGY TECHNICIAN TAVO JAVED M.D.Performed By: #### [id number], TSH3, CMP, A1C WTH eA, LIPID, CBC, BRANDIN, FE and TIBC ####[facility] [address] [place] [address] [facility]#### INSULIN ####[facility] ,Vitamin D+Metabolites [Mass/volume] in Serum or PlasmaOrdered By: Mayco Velasquez on 40-39-6682Hkeabzj D+Metabolites [Mass/Vol]Vitamin D+Metabolites [Mass/volume] in Serum or Hsezrw82-636HzfabnfgcAdena Pike Medical CenterComment on above:VITAMIN D STATUS 25(OH)VITAMIN D RANGE (ng/mL) Deficient <20 Insufficient 20 to <57Lqetiyuicz80 to 100Reference: Sarah MF,Ligia LOUIS, Skylar BALDERAS, et al. Evaluation,treatment, and prevention of vitamin D deficiency; an Endocrine Society clinical practice guideline. JCEM. 2010; 96(7):1911-30.WBC Auto (Bld) [#/Vol]Ordered By: Mayco Velasquez on 64-56-4868HOM (Bld) [#/Vol]Leukocytes [#/volume] in Blood by Automated count3.8-11.6FMercy Health St[facility] CNOVon 25-69-9716IXEDArumba Visit (PSMT) SUMA SCOTT ([id number]) 1945 F Date Time Provider Department 04/08/24 11:00 AM [facility] During your visit today, we recorded the following information about you: Krystina Lees RN 04/08/2024 10:32 AM Signed Addended by: KRYSTINA LEES on: 04/08/2024 10:32 AM Modules accepted: Mejia Maldonado PA-C 04/08/2024 10:25 AM Addendum [facility] Hand AND Upper Extremity Surgery New Patient Evaluation Consulting Provider: Sarbjit Andrea [address] [facility] [address] Consultation requested by Sarbjit Andrea for an opinion regarding the evaluation and treatment of Carpal tunnel syndrome, unspecified laterality [G56.00] . My final recommendations will be communicated back to the requesting provider by way of shared medical record or letter via US mail. Chief Complaint: Numbness in left hand History: Patient is a 79 year old female; she denies an acute injury event. right hand dominant. Date of injury/duration of pain: 5 years or more Location: Left index, middle and ring finger Intensity: Moderate, Severe Quality: Shooting numbness and tingling , loss of strength intermittently Job Related: No Symptoms with the following activities: Increased activity and Sleep The following things help the symptoms: gabapentin, braces in the past, tylenol or ibuprofen Brief Overview: Ms. Scott is a right hand dominant 79 year old female who presents with a chief complaint of numbness of the left index, middle and ring fingers with increase in weakness to the left hand. The patient reports (+) night awakening. The patient has tried wearing wrist splint, without much improvement of symptoms. Patient had EMG completed 12/22/2023 Social History: Tobacco Use: Never Work: retired Exercise: none Patient History No past medical history on file. No past surgical history on file. hydrOXYchloroQUINE (PLAQUENIL) 200 mg tablet TAKE 2 TABLETS ONCE DAILY gabapentin (NEURONTIN) 100 mg capsule Take 100 mg by mouth three times a day. Taking 500 mg in am and 600 mg in pm clonazePAM (KLONOPIN) 0.5 mg tablet Take 0.5 mg by mouth as directed. 2 tabs at night aspirin, enteric coated (ASPIRIN, ENTERIC COATED) 81 mg EC tablet Take 81 mg by mouth once daily. sodium chloride 1 gram tab Take 1 g by mouth twice daily. amLODIPine (NORVASC) 5 mg tablet Take by mouth once daily. simvastatin (ZOCOR) 20 mg tablet Take 20 mg by mouth daily at bedtime. metoprolol tartrate, short acting, (LOPRESSOR) 50 mg tablet Take 50 mg by mouth twice daily. ferrous sulfate 325 mg (65 mg iron) tablet Take 325 mg by mouth. Three times weekly DULoxetine (CYMBALTA) 30 mg capsule Take 30 mg by mouth twice daily. amitriptyline (ELAVIL) 25 mg tablet Take 25 mg by mouth daily at bedtime. ZOLMitriptan (ZOMIG) 2.5 mg tablet Take 2.5 mg by mouth as needed. omeprazole (PRILOSEC) 40 mg capsule Take 40 mg by mouth twice daily. omega-3/dha/epa/dpa/fish oil (OMEGA-3 2100 ORAL) Take by mouth once daily. cholecalciferol (VITAMIN D) 1,000 unit tab tablet Take 1,000 Units by mouth once daily. vitamin b complex capsule Take 1 capsule by mouth once daily. Ascorbic Acid (VITAMIN C) 500 mg chew Take 500 mg by mouth once daily. Allergies: ALLERGIES No Known Allergies Allergies, medications, past surgical history and past medical history were reviewed per this encounter. RADIOLOGY: IMAGING: Final results and radiologist's interpretation, available in the [facility] health record. Images were reviewed with the patient/family members in the office today. My personal interpretation of the performed imaging is no acute abnormality. EMG 12/22/2023 Study Interpretation Extensive electrodiagnostic study of the left upper extremity was performed. The study performed showed electrophysiologic evidence consistent with severe median neuropathy at or distal to the left wrist, as can be seen in the setting of carpal tunnel syndrome, without active denervation of assessed thenar musculature. The study performed showed no evidence for ulnar entrapment neuropathy or cervical radiculopathy in the left upper extremity. Physical Examination: Exam of the left upper limb revealed: (+) Tinel sign over carpal tunnel. (+) Phalen's and Durken's test. (+) thumb opposition without thenar atrophy. (-) tenderness to palpation over volar forearm near pronator teres. (-) numbness in median nerve distribution with compression of pronator teres. (-) Tinel sign along median nerve distribution over pronator teres region. (-) Tinel sign along median nerve distribution with passive supination of forearm. (-) decreased sensation over thenar eminence. (-) Tinel sign along median nerve distribution with resisted FDS flexion of middle finger. Assessment: Carpal tunnel syndrome, left (pr (more content not included)...NormalOhiohealth Hardin Memorial HospitalXR HAND 3V PA/LAT/OBL LTon 71-55-8799WH HAND 3V PA/LAT/OBL LT* * *Final Report* * * DATE OF EXAM: Apr 08 2024 9:52AM M2X 5345 - XR HAND 3V PA/LAT/OBL LT / PROCEDURE REASON: Pain * * * * Physician Interpretation * * * * EXAMINATION: XR HAND 3V PA/LAT/OBL RT, XR WRIST 3V PA/LAT/OBL TOSHA, XR HAND 3V PA/LAT/OBL LT HISTORY: numbness and tingling of the fingers. pain Pain . TECHNIQUE: XR HAND 3V PA/LAT/OBL RT, XR WRIST 3V PA/LAT/OBL TOSHA, XR HAND 3V PA/LAT/OBL LT Laterality: BILATERAL Number of different views (projections): 3 M: XB_1 COMPARISON: None RESULT/ IMPRESSION: Severe first CMC and moderate triscaphe joint degenerative changes. Moderate degenerative changes of IP joints on both sides. Negative ulnar variance with distal radioulnar degenerative changes bilaterally. No acute fracture or dislocation. No erosions. No other significant abnormality. Screw Machine Tender: MAGDALENO Transcribe Date/Time: Apr 10 2024 9:10P Dictated by : SOULEYMANE CLEMONS MD This examination was interpreted and the report reviewed and electronically signed by: SOULEYMANE CLMEONS MD on Apr 10 2024 9:15PM EST [id number] Hardin Memorial HospitalXR HAND 3V PA/LAT/OBL RTon 64-44-7936XV HAND 3V PA/LAT/OBL RT* * *Final Report* * * DATE OF EXAM: Apr 08 2024 9:52AM M2X 5346 - XR HAND 3V PA/LAT/OBL RT / PROCEDURE REASON: Pain * * * * Physician Interpretation * * * * EXAMINATION: XR HAND 3V PA/LAT/OBL RT, XR WRIST 3V PA/LAT/OBL TOSHA, XR HAND 3V PA/LAT/OBL LT HISTORY: numbness and tingling of the fingers. pain Pain . TECHNIQUE: XR HAND 3V PA/LAT/OBL RT, XR WRIST 3V PA/LAT/OBL TOSHA, XR HAND 3V PA/LAT/OBL LT Laterality: BILATERAL Number of different views (projections): 3 M: XB_1 COMPARISON: None RESULT/ IMPRESSION: Severe first CMC and moderate triscaphe joint degenerative changes. Moderate degenerative changes of IP joints on both sides. Negative ulnar variance with distal radioulnar degenerative changes bilaterally. No acute fracture or dislocation. No erosions. No other significant abnormality. Screw Machine Tender: [facility] Transcribe Date/Time: Apr 10 2024 9:10P Dictated by : SOULEYMANE CLEMONS MD This examination was interpreted and the report reviewed and electronically signed by: SOULEYMANE CLEMONS MD on Apr 10 2024 9:15PM EST [id number] Hardin Memorial HospitalXR WRIST 3V PA/LAT/OBL TOSHA on 20-19-3033UZ WRIST 3V PA/LAT/OBL TOSHA* * *Final Report* * * DATE OF EXAM: Apr 08 2024 9:52AM M2X 5621 - XR WRIST 3V PA/LAT/OBL TOSHA / PROCEDURE REASON: Carpal tunnel syndrome, unspecified laterality * * * * Physician Interpretation * * * * EXAMINATION: XR HAND 3V PA/LAT/OBL RT, XR WRIST 3V PA/LAT/OBL TOSHA, XR HAND 3V PA/LAT/OBL LT HISTORY: numbness and tingling of the fingers. pain Pain . TECHNIQUE: XR HAND 3V PA/LAT/OBL RT, XR WRIST 3V PA/LAT/OBL TOSHA, XR HAND 3V PA/LAT/OBL LT Laterality: BILATERAL Number of different views (projections): 3 M: XB_1 COMPARISON: None RESULT/ IMPRESSION: Severe first CMC and moderate triscaphe joint degenerative changes. Moderate degenerative changes of IP joints on both sides. Negative ulnar variance with distal radioulnar degenerative changes bilaterally. No acute fracture or dislocation. No erosions. No other significant abnormality. Screw Machine Tender: [facility] Transcribe Date/Time: Apr 10 2024 9:10P Dictated by : SOULEYMANE CLEMONS MD This examination was interpreted and the report reviewed and electronically signed by: SOULEYMANE CLEMONS MD on Apr 10 2024 9:15PM EST [id number] Health System Twin City Medical CenterCNPNon 03-03-3447PRLO Telephone (PLASMN) SONIA,SUMA J ([id number]) 1945 F Date Time Provider Department 04/05/24 MEJIA JOHN During your visit today, we recorded the following information about you: Lanette Marte 04/05/2024 3:48 PM Signed Patient called and has an appt on Thursday, is suppose to have an xray before. She is asking if you can put an order in for her entire arm. Her entire arm has been killing her from the shoulder all the way down.. does not know what she did, would like you to check that out also. Allergies As of Date: 04/05/2024 (No Known Allergies) Date Reviewed: 12/10/2023 Reviewed by: Gian Pastor MA - Fully Assessed Reason for Visit: Order for X-ray Before Appt Thu [Other] Prescriptions as of 04/05/2024 - hydrOXYchloroQUINE (PLAQUENIL) 200 mg tablet TAKE 2 TABLETS ONCE DAILY - gabapentin (NEURONTIN) 100 mg capsule Take 100 mg by mouth three times a day. Taking 500 mg in am and 600 mg in pm - clonazePAM (KLONOPIN) 0.5 mg tablet Take 0.5 mg by mouth as directed. 2 tabs at night - aspirin, enteric coated (ASPIRIN, ENTERIC COATED) 81 mg EC tablet Take 81 mg by mouth once daily. - sodium chloride 1 gram tab Take 1 g by mouth twice daily. - amLODIPine (NORVASC) 5 mg tablet Take by mouth once daily. - simvastatin (ZOCOR) 20 mg tablet Take 20 mg by mouth daily at bedtime. - metoprolol tartrate, short acting, (LOPRESSOR) 50 mg tablet Take 50 mg by mouth twice daily. - ferrous sulfate 325 mg (65 mg iron) tablet Take 325 mg by mouth. Three times weekly - DULoxetine (CYMBALTA) 30 mg capsule Take 30 mg by mouth twice daily. - amitriptyline (ELAVIL) 25 mg tablet Take 25 mg by mouth daily at bedtime. - ZOLMitriptan (ZOMIG) 2.5 mg tablet Take 2.5 mg by mouth as needed. - omeprazole (PRILOSEC) 40 mg capsule Take 40 mg by mouth twice daily. - omega-3/dha/epa/dpa/fish oil (OMEGA-3 2100 ORAL) Take by mouth once daily. - cholecalciferol (VITAMIN D) 1,000 unit tab tablet Take 1,000 Units by mouth once daily. - vitamin b complex capsule Take 1 capsule by mouth once daily. - Ascorbic Acid (VITAMIN C) 500 mg chew Take 500 mg by mouth once daily. Problem List As Of Date: 04/05/2024 (None) Encounter Status:Closed by LANETTE MARTE on 04/05/24[facility]XR [facility] LT 4V*on 85-40-7149FZ knee LT 4V*[facility] Main [place] [address] [place] [address] XRay Report Signed Patient: Suma Scott MR#: [id number] 4 : 1945 Acct:[id number] Age/Sex: 79 / F ADM Date: 03/01/24 Loc: XD Room: Type: [facility] Attending Dr: Mayco Velasquez DO Copies to: Mayco Velasquez DO Ordering Provider: Mayco Velasquez DO Date of Service: 03/01/24 XR/XR knee LT 4V*: M25.562 - Pain in left knee LEFT KNEE - 4 views COMPARISON: None CLINICAL DATA: Anterior knee pain since yesterday and difficulty bearing weight or flexing knee. No injury. AP, lateral and both oblique views were obtained. There is osteopenia. No acute fracture or dislocation is noted. There is slight medial tibiofemoral joint compartment narrowing. There is suspected moderate narrowing at the patellofemoral joint where slight lateral subluxation is not excluded without a patellar view. There is bilateral meniscal chondrocalcinosis. Tricompartment marginal spurring is seen. There is a small to moderate size knee effusion. XR/XR knee LT 4V* IMPRESSION: OSTEOPENIA, DEGENERATIVE CHANGES AND KNEE EFFUSION. Impression dictated by: Denise Omalley M.D.03/01/2024 7:34 PM Dictation Location: [place] [address] Transcribed By: [facility] 03/01/241933 Dictated By: Denise Omalley MD 03/01/241931 Signed By: 12/17/[address] [place] [address] Physician GroupXR CERVICAL 4V AP/LAT/OBLon 75-29-0115OE CERVICAL 4V AP/LAT/OBL* * *Final Report* * * DATE OF EXAM: Dec 22 2023 9:37AM VHX 5311 - XR CERVICAL 4V AP/LAT/OBL / PROCEDURE REASON: multiple diagnoses * * * * Physician Interpretation * * * * EXAMINATION / TECHNIQUE: XR CERVICAL 4V AP/LAT/OBL HISTORY: chronic neck pain and numbness in arms Carpal tunnel syndrome of left wrist Left hand weakness COMPARISON: None. RESULT: Counting reference: Craniocervical junction. Anatomic Variants: None. Vertebral body heights and sagittal alignment are maintained. Severe multilevel degenerative disc disease. Mild multilevel bony neural foraminal narrowing on the left. There is severe bony neural foraminal narrowing on the right at C3-C4. Prevertebral soft tissues are normal. IMPRESSION: Degenerative changes as described. Screw Machine Tender: [facility] Transcribe Date/Time: Dec 22 2023 1:27P Dictated by : MARIAELENA JOLLY MD This examination was interpreted and the report reviewed and electronically signed by: MARIAELENA JOLLY MD on Dec 22 2023 1:28PM EST [id number] Joseph HospitalXR Cervical spine AP and Lateral and obliqueon 40-63-9892QORJSFROUB: Degenerative changes as described. Screw Machine Tender: [facility] Transcribe Date/Time: Dec 22 2023 1:27P Dictated by : MARIAELENA JOLLY MD This examination was interpreted and the report reviewed and electronically signed by: MARIAELENA JOLLY MD on Dec 22 2023 1:28PM EST [facility]* * *Final Report* * * DATE OF EXAM: Dec 22 2023 9:37AM VHX 5311 - XR CERVICAL 4V AP/LAT/OBL / PROCEDURE REASON: multiple diagnoses * * * * Physician Interpretation * * * * EXAMINATION / TECHNIQUE: XR CERVICAL 4V AP/LAT/OBL HISTORY: chronic neck pain and numbness in arms Carpal tunnel syndrome of left wrist Left hand weakness COMPARISON: None. RESULT: Counting reference: Craniocervical junction. Anatomic Variants: None. Vertebral body heights and sagittal alignment are maintained. Severe multilevel degenerative disc disease. Mild multilevel bony neural foraminal narrowing on the left. There is severe bony neural foraminal narrowing on the right at C3-C4. Prevertebral soft tissues are normal. TASHI RADIOLOGYProvider, [facility] [place] - 12/22/2023 * * *Final Report* * * DATE OF EXAM: Dec 22 2023 9:37AM VHX 5311 - XR CERVICAL 4V AP/LAT/OBL / PROCEDURE REASON: multiple diagnoses * * * * Physician Interpretation * * * * EXAMINATION / TECHNIQUE: XR CERVICAL 4V AP/LAT/OBL HISTORY: chronic neck pain and numbness in arms Carpal tunnel syndrome of left wrist Left hand weakness COMPARISON: None. RESULT: Counting reference: Craniocervical junction. Anatomic Variants: None. Vertebral body heights and sagittal alignment are maintained. Severe multilevel degenerative disc disease. Mild multilevel bony neural foraminal narrowing on the left. There is severe bony neural foraminal narrowing on the right at C3-C4. Prevertebral soft tissues are normal. IMPRESSION IMPRESSION: Degenerative changes as described. Screw Machine Tender: [facility] Transcribe Date/Time: Dec 22 2023 1:27P Dictated by : MARIAELENA JOLLY MD This examination was interpreted and the report reviewed and electronically signed by: MARIAELENA JOLLY MD on Dec 22 2023 1:28PM [facility]Rad[facility] Study observation (narrative)[facility] HospitalXR Cervical spine AP and Lateral and obliqueOrdered By: [facility] Provider on 12-22-2023 [facility] HospitalCNOVon [id number] Visit (SPMEST) SUMA SCOTT ([id number]) 1945 F Date Time Provider Department 12/10/23 9:40 AM SARBJIT ANDREA SPMEST During your visit today, we recorded the following information about you: Sarbjit Andrea DO 12/16/2023 12:04 AM Signed Follow-up Visit [facility] December 10, 2023 CC: Lumbar spine pain left lower limb pain SUBJECTIVE: Patient returns today after undergoing left S1 transforaminal epidural steroid injection. Reports significant improvement in her symptoms. Reports she is 100% better. Did not have any significant concerns with procedure. Reports 2 attempts were made to perform the injection but ultimately saw significant improvement within days. Patient comes in today with violaceous bruising across her right jaw. Recent tooth extraction. In addition would like to discuss her left-sided finger numbness. Since last visit: She continues to deny bowel/bladder incontinence, denies fever, denies night pain, denies unintentional weight loss, denies clumsiness of hands or dropping things, denies clumsiness of feet, tripping or falling. Denies any constitutional or myelopathic symptomatology. No interval change in PMHX, PSHX, Allergies, FamHx or ROS. PMH:No past medical history on file. PSH:No past surgical history on file. Social history: Social History Tobacco Use Smoking status: Never Smokeless tobacco: Never Fam history: No family history on file. Reviewed and updated with patient. ALLERGIES: Patient has no known allergies. DATA REVIEW: Review of fluoroscopic imaging shows good epidural flow at the S1 level with greater amount traveling anteriorly. Subsequent injection of injectate and then repositioning of needle slightly more laterally in the foramen with repeat injection of contrast which shows even better epidural flow. OBJECTIVE: Vital Signs: There were no vitals taken for this visit. ASSESSMENT: General:Patient in no apparent distress, afebrile, well appearing Lungs:No labored breathing, symetric chest excursion, no tachypnia Heart:No lower limb edema, pulses palpable and symetric dorsalis pedis and radial, no cyanosis Abdominal:Non distended abdomen Neuro:Strength intact bilateral lower limbs Sensation intact bilateral lower limbs Strength intact in bilateral upper limbs except for severe weakness in left APB and mild to moderate weakness in right APB, sensory deficits in the C6 and C7 dermatomes on the left but much more pronounced in the C7 dermatome versus median nerve distribution Muscular:Tenderness to palpation of bilateral Lumbar paraspinal muscles Skin:Head, neck, trunk, and extremities dry, intact and without lesions. DX: Lumbar radiculopathy (primary encounter diagnosis) Carpal tunnel syndrome of left wrist Left hand weakness Disturbance of skin sensation PLAN: 1) Patient 100% better since undergoing S1 transforaminal injection very happy with results. Will contact our office if her symptoms worsen 2) Patient with left APB weakness dense numbness in the first second and third digits of her left hand. More prominent findings in the C7 distribution. In light of this advised patient would recommend EMG of the left upper limb reports many years ago had undergone EMG which showed carpal tunnel syndrome. 3) Patient was also scheduled for cervical x-ray. I will contact her if there are any concerning findings. Sarbjit Andrea DO, MPH Staff Physician [facility] This document has been created with the use of voice recognition technology. It may contain inaccuracies: misspellings, inaccurate syntax or word sense that escaped review. Allergies As of Date: 12/10/2023 (No Known Allergies) Date Reviewed: 12/10/2023 Reviewed by: Gian Pastor MA - Fully Assessed Reason for Visit: Follow Up [171] Injections [199] Cmt: Had injection on 11/25/23. States 0 pain Primary Visit Diagnosis:Lumbar radiculopathy [M54.16] Other Visit Diagnoses:Carpal tunnel syndrome of left wrist [G56.02] Left hand weakness [R29.898] Disturbance of skin sensation [R20.9] Order(s):XR CERV OTHER 4V AP/LAT/OBL [2030598] Order #: [id number] FUTURE EMG(NEURO/NI) [20100614] Order #: [id number]: 1 FUTURE Prescriptions as of 12/16/2023 - hydrOXYchloroQUINE (PLAQUENIL) 200 mg tablet TAKE 2 TABLETS ONCE DAILY - gabapentin (NEURONTIN) 100 mg capsule Take 100 mg by mouth three times a day. Taking 500 mg in am and 600 mg in pm - clonazePAM (KLONOPIN) 0.5 mg tablet Take 0.5 mg by mouth as directed. 2 tabs at night - aspirin, enteric coated (ASPIRIN, ENTERIC COATED) 81 mg EC tablet Take 81 mg by mouth once daily. - sodium chloride 1 gram tab Take 1 g by mouth twice daily. - amLODIPine (NORVASC) 5 mg tablet Take by mouth once daily. - simvastatin (ZOCOR) 20 mg tablet Take 20 mg by mouth daily at bedtime. - met (more content not included)...NormalGrand Lake Joint [facility] District Memorial HospitalPNon [id number] (SPNMMN) SUMA SCOTT ([id number]) 1945 F Date Time Provider Department 12/03/23 EDILSON ROMAN Shagufta SPFLMN During your visit today, we recorded the following information about you: Zaira Mills LPN 12/03/2023 2:21 PM Signed Post Spine Injection phone call: Patient on 12/03/2023 Patient denies fever, chills, new headache, prolonged numbness nor exacerbation of pain status. Injection site(s) flat and dry with no redness nor drainage. Pre Procedure Pain level: 2 Immediately Post Procedure 0 Pain level today 0 (0 = none - 10 = extreme) Percentage of pain relief: 80-90% Patient verbalized understanding that it may take up to 14 days to realize full benefit of spinal injection. Follow up as indicated on order: Ordering Provider Via Office Visit: 2-4 weeks. Patient reminded to bring pain diary to follow appointment. If follow up appointment indicated on order, patient encouraged to schedule follow up appointment 2-4 weeks post procedure by calling [phone] Patient does not have any questions or concerns. Patient will call office with any questions or concerns. Zaira Mills LPN Allergies As of Date: 12/03/2023 (No Known Allergies) Date Reviewed: 11/25/2023 Reviewed by: Darcy Seth MA - Fully Assessed Prescriptions as of 12/03/2023 - hydrOXYchloroQUINE (PLAQUENIL) 200 mg tablet TAKE 2 TABLETS ONCE DAILY - gabapentin (NEURONTIN) 100 mg capsule Take 100 mg by mouth three times a day. Taking 500 mg in am and 600 mg in pm - clonazePAM (KLONOPIN) 0.5 mg tablet Take 0.5 mg by mouth as directed. 2 tabs at night - aspirin, enteric coated (ASPIRIN, ENTERIC COATED) 81 mg EC tablet Take 81 mg by mouth once daily. - sodium chloride 1 gram tab Take 1 g by mouth twice daily. - amLODIPine (NORVASC) 5 mg tablet Take by mouth once daily. - simvastatin (ZOCOR) 20 mg tablet Take 20 mg by mouth daily at bedtime. - metoprolol tartrate, short acting, (LOPRESSOR) 50 mg tablet Take 50 mg by mouth twice daily. - ferrous sulfate 325 mg (65 mg iron) tablet Take 325 mg by mouth. Three times weekly - DULoxetine (CYMBALTA) 30 mg capsule Take 30 mg by mouth twice daily. - amitriptyline (ELAVIL) 25 mg tablet Take 25 mg by mouth daily at bedtime. - ZOLMitriptan (ZOMIG) 2.5 mg tablet Take 2.5 mg by mouth as needed. - omeprazole (PRILOSEC) 40 mg capsule Take 40 mg by mouth twice daily. - omega-3/dha/epa/dpa/fish oil (OMEGA-3 2100 ORAL) Take by mouth once daily. - cholecalciferol (VITAMIN D) 1,000 unit tab tablet Take 1,000 Units by mouth once daily. - vitamin b complex capsule Take 1 capsule by mouth once daily. - Ascorbic Acid (VITAMIN C) 500 mg chew Take 500 mg by mouth once daily. Problem List As Of Date: 12/03/2023 (None) Encounter Status:Closed by ZAIRA MILLS on 12/03/23[facility] [id number] Visit ([facility] SU[facility] ([id number]) 1945 F Date Time Provider Department 11/25/23 1:30 PM SPINE MED PROCEDURE MAIN [facility] During your visit today, we recorded the following information about you: Temperature Pulse Respiration Blood pressure 98.1 degrees 73/minute 18/minute 122/87 Mayco Vanessa LPN 11/25/2023 2:48 PM Signed NON-SEDATION PROCEDURE FORM November 25, 2023 7:53 AM Room Number: [id number] Fluoroscopy suite ID verified: Yes Arrived via indpendent ambulation 78 year old Weight: Last 2 Encounter Wt Readings: Date: Wt: 08/17/2023 86.3 kg (190 lb 4.1 oz) 08/07/2022 79.4 kg (175 lb) Indication for Procedure (Associated Diagnoses): low back pain Procedure ordered: Left S1 Transforaminal Epidural Steroid Injection Verified by patient by: Dr. Waggoner [employer] for post spine injection procedure: Yes Patient mentation: alert, oriented, cooperative Yes Allergies: ALLERGIES No Known Allergies Pre-Procedural medication orders:clonazePAM orally disintegrating (KLONOPIN WAFER) 0.5 mg disintegrating tablet given as prescribed Patient tolerated well Documented in med note. Pre-procedural orders Discharge / transfer when discharge assessment criteria met: Alert and oriented X3, moves all extremities X4, vital signs stable, injection site flat and dry. Able to ambulate as prior to procedure Sign In Communication: Allergies and medications reviewed. Site of the procedure confirmed:Yes Informed Consent Complete: Yes Relevent diagnostic tests reviewed (i.e., use of anticoagulants, INR, platelet count, imaging, etc.) Yes Critical Information: Proceduralist: Dr. Edilson Vizcaino DO PROCEDURAL TIME OUT: Time out verification includes:Audible time-out documented: Yes. Time: 1402 Correct Patient: Two Patient Identifiers Correct side/ site marking, prep and dry time (If applicable) Accurate Consent Correct Procedure Correct Positioning Safety Precautions Based on Patient History or Medication Team agrees: correct patient, correct procedure, correct site, correct position UNIVERSAL PROTOCOL / SAFETY CHECKLIST Procedure to be Performed: Left S1 Transforaminal Epidural Steroid Injection Sign In: A Moment of CARE was completed. Personnel directly involved with the procedure wore the appropriate PPE (Personal Protective Equipment). No special equipment needed. Patient/Surrogate Stated/Verified: PATIENT VERIFIED(optional for EMERGENT procedures): Patient name, Date of , Relevant allergies, and The intended procedure Time Out Communication: Intended patient and procedure match the source documents. Consent documented and matches the intended procedure. Relevant labs, photos, and/or imaging studies have been reviewed. Correct side/site marked and visible. Medications required for procedure verified. Fire risk assessed and interventions discussed. No implant(s) inserted. Sign Out: SIGN OUT (optional for EMERGENT procedures): No specimen collected. All instruments, equipment, possible retained foreign bodies accounted for. Post-procedure follow-up management communicated and Plan of Care Visit completed when applicable. Alesia Pace RN Procedure Start time: 1409 Monitors On: NIBP Yes Pulse Oximetry Yes Site Prep: Povidone iodine, allowed to dry for 30 seconds Procedure Events: Vital Signs documented in activity above. Medications given, interventions, and notes: Time: BP Pulse R O2 Sat 1404 154/94 79 18 96 1410 124/95 75 18 96 1415 139/85 77 18 95 1420 133/83 79 18 93 1425 135/86 73 18 94 1430 Omnipaque (iohexol) 300mg/mL SDV volume 50 mL, Lidocaine 1% 10mg/mL SDV volume 30 mL Preservative-Free, and Dexamethasone Na phosphate 10mg/ml Preservative-Free Total Fluroscopy time:: 65 seconds. Procedure Finish Time: 1430 SIGN-OUT Dressings Applied to site(s): hypoallergenic transparent Tegaderm with absorbent nonadherent pad Mota concerns for recovery and management of patient reviewed verbally prior to patient leaving procedure room. Post- Procedure Events: Vital Signs documented as below. Medications given, interventions, and notes as needed: Yes Time: BP Pulse R O2 Sat Pain scale 1435 134/79 76 18 94 0 AMBULATORY PATIENT EDUCATION TOPIC: PROCEDURE / SURGERY: Post Procedure Teaching: Symptom Management and Wound Care READINESS TO LEARN COGNITIVE ABILITY: Alert and oriented MOTIVATION TO LEARN: Eager FAMILY SUPPORT: Unable to assess - Family not present INSTRUCTION PROVIDED TO: Patient PATIENT LEARNS BEST BY: Individual Instruction Written Instruction - Hand-outs FACTORS AFFECTING LEARNING: None PHYSICAL LIMITATIONS AFFECTING LEARNING: None LEARNING RESPONSE METHOD OF INSTRUCTION: Teach Back post procedure instructions Individual instruction Written instruction - handouts Verbal instruction PATIENT / FAMILY RESP (more content not included)...NormalUniversity Hospitals Cleveland Medical CenterTORY PHYSICALon [id number] PHYSICALHNO ID: [id number] Author: ROMAN WAGGONER, DO Service: ? Author Type: Resident Type: H&P Filed: 11/25/2023 16:28 Note Text: PROCEDURAL HISTORY AND PHYSICAL EXAM SERVICE DATE and TIME: November 25, 2023 at 1:54 PM The History and Physical (completed in the past 30 days) has been reviewed and the patient has been examined. The contents accurately reflect the patient's condition with the following additions or revisions since the HANDP was completed. Patient referred by Sarbjit Andrea. ASSESSMENT AND PLAN M54.16 Radiculopathy, lumbar region (primary encounter diagnosis) Patient here today for Left S1 Transforaminal Epidural Steroid Injection . SUBJECTIVE HPI: This is a 78 year old female who presents with pain located left sided radicular pain down left posterior leg . Pain today is 2/10. PAST MEDICAL HISTORY: No past medical history on file. PAST SURGICAL HISTORY: No past surgical history on file. MEDICATIONS: Prior to Admission medications as of 11/25/23 1306 Medication Sig Last Dose Taking hydrOXYchloroQUINE (PLAQUENIL) 200 mg tablet Take 2 tablets by mouth once daily. Taking Yes gabapentin (NEURONTIN) 100 mg capsule Take 100 mg by mouth three times a day. Taking 500 mg in am and 600 mg in pm Taking Yes clonazePAM (KLONOPIN) 0.5 mg tablet Take 0.5 mg by mouth as directed. 2 tabs at night Taking Yes sodium chloride 1 gram tab Take 1 g by mouth twice daily. Taking Yes amLODIPine (NORVASC) 5 mg tablet Take by mouth once daily. Taking Yes simvastatin (ZOCOR) 20 mg tablet Take 20 mg by mouth daily at bedtime. Taking Yes metoprolol tartrate, short acting, (LOPRESSOR) 50 mg tablet Take 50 mg by mouth twice daily. Taking Yes ferrous sulfate 325 mg (65 mg iron) tablet Take 325 mg by mouth. Three times weekly Taking Yes DULoxetine (CYMBALTA) 30 mg capsule Take 30 mg by mouth twice daily. Taking Yes amitriptyline (ELAVIL) 25 mg tablet Take 25 mg by mouth daily at bedtime. Taking Yes ZOLMitriptan (ZOMIG) 2.5 mg tablet Take 2.5 mg by mouth as needed. Taking Yes omeprazole (PRILOSEC) 40 mg capsule Take 40 mg by mouth twice daily. Taking Yes omega-3/dha/epa/dpa/fish oil (OMEGA-3 2100 ORAL) Take by mouth once daily. Taking Yes cholecalciferol (VITAMIN D) 1,000 unit tab tablet Take 1,000 Units by mouth once daily. Taking Yes vitamin b complex capsule Take 1 capsule by mouth once daily. Taking Yes Ascorbic Acid (VITAMIN C) 500 mg chew Take 500 mg by mouth once daily. Taking Yes aspirin, enteric coated (ASPIRIN, ENTERIC COATED) 81 mg EC tablet Take 81 mg by mouth once daily. Patient not taking: Reported on 08/17/2023 ALLERGIES: ALLERGIES No Known Allergies OBJECTIVE PHYSICAL EXAM: VITAL SIGNS: 11/25/23 1328 BP: 122/87 Pulse: 73 Resp: 18 Temp: 36.7 ?C (98.1 ?F) AIRWAY: Patent, Full neck flexion and extension, Uvula visible RESP: Non-labored breathing. CV: Extremities are warm and well-perfused. Motor: 5/5 BLE The remainder of the physical exam is noncontributory. Risk, benefits, medications, personnel, and process of the procedure was explained to the patient with explicit agreement by patient or patient hvac sales representative to proceed before procedure. Patient seen and discussed with attending, Roman Waggoner DO, who agrees with plan. Bharath Vizcaino DO PGY-5 Interventional Spine and Musculoskeletal Medicine Fellow Physical Medicine and Rehabilitation SIGNATURE: Bharath Vizcaino DO PATIENT NAME: Suma Scott DATE: November 25, 2023 TIME: 1:54 PMNormalOhiohealth Hardin Memorial HospitalAlanine aminotransferase [Enzymatic activity/volume] in Serum or PlasmaOrdered By: Mayco Velasquez on 04-63-4938CAM [Catalytic activity/Vol]44 U/L7-52[facility] Medical CenterAlbumin [Mass/volume] in Serum or Plasma by Bromocresol green (BCG) dye binding metho Ordered By: Mayco Velasquez on 50-03-9589Rxbjkvb BCG dye [Mass/Vol]4.6 g/dL3.5-5.7 [facility] CenterAlkaline phosphatase [Enzymatic activity/volume] in Serum or PlasmaOrdered By: Mayco Velasquez on 10-56-8906FCP [Catalytic activity/Vol]91 U/I19-703CjydgozygAdena Pike Medical CenterAspartate aminotransferase [Enzymatic activity/volume] in Serum or PlasmaOrdered By: Mayco Velasquez on 64-60-8022QRN [Catalytic activity/Vol]41 U/XUzti43-24AbzaglfdjAdena Pike Medical CenterBacteria [Presence] in Urine by AutomatedOrdered By: Mayco Velasquez on 45-41-7351Kpfghcjv Auto Ql (U)None seen [HPF]None SeenAdena Pike Medical CenterBasophils Auto (Bld) [#/Vol]Ordered By: Mayco Velasquez on 46-48-3980Qorzikyym (Bld) [#/Vol]0.0 10*3/uL0.0-0.2FMercy Health St. Elizabeth Boardman HospitalBasophils/100 WBC Auto (Bld)Ordered By: Mayco Velasquez on 11-23-2023 Basophils/100 WBC (Bld)1.1 %.[facility] CenterBilirubin Test strip Ql (U)Ordered By: Mayco Velasquez on 06-24-5458Gnqvxyeez Ql (U)Negative NegativeAdena Pike Medical CenterBilirubin.total [Mass/volume] in Serum or PlasmaOrdered By: Mayco Velasquez on 50-31-4409Gtayrziwu [Mass/Vol]0.6 mg/dL 0.3-1.0[facility] CenterCalcium [Mass/volume] in Serum or Plasma Ordered By: Mayco Velasquez on 33-03-3369Zgtvbsb [Mass/Vol]10.0 mg/dL8.6-10.3 [facility] CenterCarbon dioxide, total [Moles/volume] in Serum or PlasmaOrdered By: Mayco Velasquez on 31-06-0809AY6 [Moles/Vol]27.8 mmol/L 21.0-31.0[facility] CenterChloride [Moles/volume] in Serum or PlasmaOrdered By: Mayco Velasquez on 10-87-8186Fgwyqcig [Moles/Vol]102 mmol/L98-107 [facility] CenterCholesterol [Mass/volume] in Serum or Plasma Ordered By: Mayco Velasquez on 01-29-6453Rxbwpixlnny [Mass/Vol]122 mg/lOCxm169-120 [facility] CenterComment on above:Chol less than 200 mg/dl low riskChol 201-239 mg/dl borderline riskChol 240 mg/dl and greater high risk Cholesterol in LDL Calc [Mass/Vol]Ordered By: Mayco Velasquez on 11-23-2023 Cholesterol in LDL [Mass/Vol]40 mg/dL0-100[facility] Comment on above:LDL ATP III CLASSIFICATIONLDL less than 100 mg/dL OptimalLDL 100-129 mg/dL Near or above qubwmlnRMM248-282 mg/dL Borderline highLDL 160-189 mg/dL HighLDL greater than 189 mg/dL Very highCholesterol in VLDL Calc [Mass/Vol]Ordered By: Mayco Velasquez on 06-20-4165Rkangqazxvy in VLDL [Mass/Vol]27 mg/dLAdena Pike Medical CenterColor Auto (U)Ordered By: Mayco Velasquez on 58-95-7573Sbdru (U)YellowYellowAdena Pike Medical CenterCreatinine [Mass/volume] in Serum or PlasmaOrdered By: Mayco Velasquez on 56-74-7096Bnilsafcgo [Mass/Vol]0.90 mg/dL0.60-1.20[facility] CenterEosinophils Auto (Bld) [#/Vol]Ordered By: Mayco Velasquez on 71-06-2699Phelqlomxtd (Bld) [#/Vol]0.1 10*3/uL0.0-0.45[facility] CenterEosinophils/100 WBC Auto (Bld) Ordered By: Mayco Velasquez on 81-57-0236Xyicvyhpxwt/100 WBC (Bld)2.4 %.[facility] CenterEpithelial cells.squamous [#/area] in Urine sediment by Automated countOrdered By: Mayco Velasquez on 67-18-3779Micgucfqsr cells.squamous Auto (Urine sed) [#/Area]1-2 [HPF]0-2FMercy Health St. [facility] Hospital Erythrocyte distribution width Auto (RBC) [Ratio]Ordered By: Mayco Velasquez on 87-17-9981Lkbiobipnkq distribution width (RBC) [Ratio]13.7 %11.9-15.3FMercy Health St. Elizabeth Boardman HospitalErythrocytes [#/area] in Urine sediment by Automated countOrdered By: Mayco Velasquez on 39-03-4747TTH Auto (Urine sed) [#/Area]1-2 [HPF]0-4FMercy Health St. Elizabeth Boardman HospitalFerritin [Mass/volume] in Serum or PlasmaOrdered By: Mayco Velasquez on 61-34-8018Apauqiuw [Mass/Vol]78.2 ng/mL 11.0-306.8[facility] Medical CenterGlobulin Calc (S) [Mass/Vol]Ordered By: Mayco Velasquez on 64-88-4691Nhqzfjds (S) [Mass/Vol]2.1 g/dLAdena Pike Medical CenterGlucose [Mass/volume] in Serum or PlasmaOrdered By: Mayco Velasquez on 23-62-0178Miwoqxw [Mass/Vol]100 mg/eI80-277SbfqjtgsyAdena Pike Medical Center Comment on above:ADA recommended reference rangeRandom Glucose Reference Range is dependent on time and content of last meal. Glucose of more than 200 mg/dL in a nonstressed, ambulatory subject supports the diagnosisof Diabetes Mellitus. Glucose [Mass/volume] in Urine by Test stripOrdered By: Mayco Velasquez on 60-46-5899Tswpyeu Test strip (U) [Mass/Vol]Normal mg/dLNormalAdena Pike Medical CenterGlucose mean value [Mass/volume] in Blood Estimated from glycated hemoglobinOrdered By: Mayco Velasquez on 97-83-6804Jirgppw glucose Estimated from glycated hemoglobin (Bld) [Mass/Vol]120 mg/dLAdena Pike Medical Center Hematocrit Auto (Bld) [Volume fraction]Ordered By: Mayco Velasquez on 11-23-2023 Hematocrit (Bld) [Volume fraction]41.9 %34.0-46.4FMercy Health St. Elizabeth Boardman HospitalHemoglobin A1c percentageOrdered By: Mayco Velasquez on 98-76-7444PmI7w (Bld) [Mass fraction]5.8 %High4.3-5.6FMercy Health St. Elizabeth Boardman HospitalComment on above:Increased risk for diabetes: 5.7 - 6.4diabetes: >6.4glycemic control for adults with diabetes: <7.0Hemoglobin Test strip Ql (U)Ordered By: Mayco Velasquez on 66-01-5776Eisopfmhdb Ql (U)NegativeNegativeAdena Pike Medical CenterHemoglobin [Mass/volume] in BloodOrdered By: Mayco Velasquez on 11-23-2023 Hemoglobin (Bld) [Mass/Vol]14.3 g/dL11.8-15.4FMercy Health St. [facility] Hyaline casts [#/area] in Urine sediment by Automated countOrdered By: Mayco Velasquez on 08-14-7401Wvspvzx casts Auto (Urine sed) [#/Area]None [LPF]0-8 [facility] CenterIron [Mass/volume] in Serum or PlasmaOrdered By: Mayco Velasquez on 03-53-0706Qemm [Mass/Vol]245 ug/kIVemu81-282BogxfbrqzAdena Pike Medical CenterIron binding capacity [Mass/volume] in Serum or Plasma Ordered By: Mayco Velasquez on 84-82-3396Tcxr binding capacity [Mass/Vol]325 ug/dL 255-450A[facility] Medical CenterIron saturation [Mass Fraction] in Serum or PlasmaOrdered By: Mayco Velasquez on 55-92-0256Ljyt saturation [Mass fraction] 75.4 %Eqym45-07GfzdiahjuAdena Pike Medical CenterKetones Test strip Ql (U)Ordered By: Mayco Velasquez on 52-10-2482Nyikooh Ql (U)NegativeNegativeAdena Pike Medical CenterLeukocyte esterase [Presence] in Urine by Test stripOrdered By: Mayco Velasquez on 24-47-2681Ephtdojsj esterase Test strip Ql (U)NegativeNegative [facility] CenterLeukocytes [#/area] in Urine sediment by Automated countOrdered By: Mayco Velasquez on 49-88-0190RXH Auto (Urine sed) [#/Area]1-2 [HPF]0-4FMercy Health St. Elizabeth Boardman HospitalLeukocytes [#/volume] corrected for nucleated erythrocytes in Blood by Automated counOrdered By: Mayco Velasquez on 75-98-1369YGE corrected for nucl RBC Auto (Bld) [#/Vol]4.4 10*3/uL 3.8-11.6FMercy Health St. Elizabeth Boardman HospitalLymphocytes Auto (Bld) [#/Vol]Ordered By: Mayco Velasquez on 49-08-1203Htdehgbnczl (Bld) [#/Vol]1.3 10*3/uL1.00-4.8 [facility] CenterLymphocytes/100 WBC Auto (Bld)Ordered By: Mayco Velasquez on 33-86-8914Dogrcxicdok/100 WBC (Bld)29.4 %.[facility] Auto (RBC) [Entitic mass]Ordered By: Mayco Velasquez on 72-65-0510KZW (RBC) [Entitic mass]29.1 pg24.7-34.3FMercy Health St. Elizabeth Boardman HospitalMCHC Auto (RBC) [Mass/Vol]Ordered By: Mayco Velasquez on 01-36-6019LJHY (RBC) [Mass/Vol]34.1 g/dL32.0-35.0[facility] Medical CenterMCV Auto (RBC) [Entitic vol] Ordered By: Mayco Velasquez on 69-57-3730BEK (RBC) [Entitic vol]85.4 dW57-548 [facility] CenterMonocytes Auto (Bld) [#/Vol]Ordered By: Mayco Velasquez on 99-01-6273Xrauayier (Bld) [#/Vol]0.6 10*3/uL0.0-0.8[facility] CenterMonocytes/100 WBC Auto (Bld)Ordered By: Mayco Velasquez on 11-23-2023 Monocytes/100 WBC (Bld)14.4 %.[facility] CenterNeutrophils Auto (Bld) [#/Vol]Ordered By: Mayco Velasquez on 56-85-6913Xtrmzxicxxz (Bld) [#/Vol]2.3 10*3/uL1.8-7.7FMercy Health St. Elizabeth Boardman HospitalNeutrophils/100 WBC Auto (Bld) Ordered By: Mayco Velasquez on 02-64-5429Ehvhasuiwsl/100 WBC (Bld)52.7 %.[facility] Medical CenterNitrite Test strip Ql (U)Ordered By: Mayco Velasquez on 11-71-5896Osdnbyz Ql (U)NegativeNegativeAdena Pike Medical CenterNo Panel InformationOrdered By: Mayco Velasquez on 94-72-7552Rsejvkclb GFR (CKD-EPI)> 60.0 mL/MinAdena Pike Medical CenterPharmacy Creatinine Clearance (Chem N/AFMercy Health St. Elizabeth Boardman HospitalNucleated erythrocytes [Presence] in Blood by Automated countOrdered By: Mayco Velasquez on 59-96-3475Zhadqytaz RBC Auto Ql (Bld)0.1 /100{WBC}0-0.5FMercy Health St. Elizabeth Boardman HospitalPlatelet mean volume Auto (Bld) [Entitic vol]Ordered By: Mayco Velasquez on 61-09-3987Hbdsyyzm mean volume (Bld) [Entitic vol]7.9 fL6.3-10.7FMercy Health St. [facility] Hospital Platelets Auto (Bld) [#/Vol]Ordered By: Mayco Velasquez on 54-47-7785Ygooqkcci (Bld) [#/Vol]289 10*3/mL304-794FadmwtvekAdena Pike Medical CenterPotassium [Moles/volume] in Serum or PlasmaOrdered By: Mayco Velasquez on 66-55-8475Bvfigjvxn [Moles/Vol]4.9 mmol/L3.5-5.1FMercy Health St. Elizabeth Boardman HospitalProtein Test strip (U) [Mass/Vol]Ordered By: Mayco Velasquez on 36-87-9383Zzwiigr (U) [Mass/Vol]Trace mg/dLHighNegativeAdena Pike Medical CenterProtein [Mass/volume] in Serum or PlasmaOrdered By: Mayco Velasquez on 66-95-2613Qhqpobo [Mass/Vol]6.7 g/dL 6.4-8.9[facility] Medical CenterRBC Auto (Bld) [#/Vol]Ordered By: Mayco Velasquez on 83-94-2370EED (Bld) [#/Vol]4.91 10*6/uL3.60-5.00Wilson Memorial Hospitalerum or plasma albumin/globulin mass ratioOrdered By: Mayco Velasquez on 21-91-2137Wjtzkcy/Globulin [Mass ratio]2.2 {ratio}[facility] Hospitalerum or plasma anion gap determinationOrdered By: Mayco Velasquez on 14-96-7696Sripp gap [Moles/Vol]12.1 mmol/L6.0-15.0[facility] Memorial Hospitalerum or plasma high density lipoprotein (HDL) cholesterol measurement Ordered By: Mayco Velasquez on 22-65-9330Tvceaqkkcqz in HDL [Mass/Vol]54 mg/dL23-92 [facility] CenterComment on above:HDL CHOL ATP-III CLASSIFICATION Cardiovascular RiskHDL > or equal to 60 mg/dL LOWHDL < 40 mg/dL HIGHSerum or plasma total cholesterol/high density lipoprotein (HDL) cholesterol mass ratOrdered By: Mayco Velasquez on 23-18-4876Xjigrecomdl.total/Cholesterol in HDL [Mass ratio]2.3 {ratio}<5.0[facility] Memorial Hospitalodium [Moles/volume] in Serum or PlasmaOrdered By: Mayco Velasquez on 22-25-4347Lvqjdg [Moles/Vol]137 mmol/J385-031DrotmiphbWilson Memorial Hospitalpecific gravity Test strip (U) [Rel density]Ordered By: Mayco Velasquez on 34-16-5897Lzxocgre gravity (U) [Rel density]1.0091.001-1.030[facility] Transferrin [Mass/volume] in Serum or PlasmaOrdered By: Mayco Velasquez on 01-00-9513Vcrggdyoebw [Mass/Vol]232 mg/rG576-566BceshdtrbAdena Pike Medical CenterTriglyceride [Mass/volume] in Serum or PlasmaOrdered By: Mayco Velasquez on 40-43-6645Xlgfxgvtocpu [Mass/Vol]138 mg/dL0-149[facility] Comment on above:TRIG ATP III CLASSIFICATIONTRIG less than 150 mg/dL NormalTRIG 150-199 mg/dL Borderline highTRIG 200-500 mg/dL High TRIG greater than 500 mg/dL Very highStandard traceable to the Center for Disease Conrtrol and Prevention (CDC) test method.Urea nitrogen [Mass/volume] in Serum or PlasmaOrdered By: Mayco Velasquez on 16-77-9504Hrkb nitrogen [Mass/Vol]8 mg/dL7-25[facility] Medical CenterUrine appearanceOrdered By: Mayco Velasquez on 37-00-9830Budczhhbjl (U)ClearCleCommunity Memorial HospitalUrine culture routineOrdered By: Mayco Velasquez on 71-12-5950Malvapqq identified Cx Nom (U)Streptococcus anginosus AbnormalAdena Pike Medical CenterUrobilinogen Test strip (U) [Mass/Vol] Ordered By: Mayco Velasquez on 63-28-4036Mtxzwhrzyjkv (U) [Mass/Vol]Normal mg/dL NormalAdena Pike Medical CenterVitamin D+Metabolites [Mass/volume] in Serum or PlasmaOrdered By: Mayco Velasquez on 96-39-4191Ppqbhbn D+Metabolites [Mass/Vol]56.9 ng/sK65-874YlgcphrnyAdena Pike Medical CenterComment on above: VITAMIN D STATUS 25(OH)VITAMIN D RANGE (ng/mL) Deficient <20 Insufficient 20 to <94Cqpvwmnweq00 to 100Reference: Sarah WALLS,Ligia NC, Skylar BALDERAS, et al. Evaluation,treatment, and prevention of vitamin D deficiency; an Endocrine Society clinical practice guideline. JCEM. 2010; 96(7):1911-30.WBC Auto (Bld) [#/Vol]Ordered By: Mayco Velasquez on 35-77-0045NVH (Bld) [#/Vol]4.4 10*3/uL 3.8-11.6FMercy Health St. Elizabeth [facility] HospitalpH Test strip (U)Ordered By: Mayco Velasquez on [id number] (U)7.5 [pH]5.0-9.0[facility] Medical CenterCNPNon [id number] ([facility]) SUMA SCOTT ([id number]) 1945 F Date Time Provider Department 11/17/23 ROMAN WAGGONER [facility] During your visit today, we recorded the following information about you: Giselle Villaseñor, SCOTT 11/17/2023 10:28 AM Signed Phoned patient and spoke with Suma to confirm appointment for Suma Scott for spine procedure on 11/25/2023 with the arrival time of 1pm for a 1:30pm schedule time appointment. Patient verbalized understanding of the following: -Provided education on spine procedure and answered questions related to spine injection procedure. 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 -NPO 4 hours prior to appointment, ok to take morning medications with sip of water. -Not to take any pain medications the day of injection to see how well injection works. -Please do not take any NSAIDs/anti-inflammatories (mobic, ibuprofen, advil, aleve, etc) the day of procedure for all lumbar, hip, and sacroiliac joint procedures. Hold NSAIDs for 1 day prior to procedure for cervical cases. Allergies reviewed: yes Allergy to IV contrast dye or steroids: no Taking any antiplatelet/anticoagulant (blood thinners): no Taking aspirin 81mg: no Any open wounds/sores?: no Taking Antibiotics?: no Diabetic: no , notified that blood sugar will be taken at office and ok to take morning diabetes medication. -Patient has not had steroid injections within the last 2 weeks: no Patient notified that Klonopin PO can be given prior to injection to help with anxiety. Patient verbalized understanding. Patient given number [phone], spine injections schedulers, if there is any need to reschedule/ change appointment during normal business hours. Active MyChart users were informed to read MyChart procedure instructions prior to appointment. AMBULATORY PATIENT EDUCATION TOPIC: SPINE INJECTION PROCEDURE, PRE-INJECTION AND POST- INJECTION INSTRUCTIONS READINESS TO LEARN COGNITIVE ABILITY: ALERT AND ORIENTED MOTIVATION TO LEARN: Interested FAMILY SUPPORT: Unable to assess - Family not present INSTRUCTION PROVIDED TO: Patient PATIENT LEARNS BEST BY: INDIVIDUAL INSTRUCTION FACTORS AFFECTING LEARNING: None PHYSICAL LIMITATIONS AFFECTING LEARNING: None LEARNING RESPONSE METHOD OF INSTRUCTION: TEACH BACK AND INDIVIDUAL INSTRUCTION Giselle Villaseñor RN PATIENT / FAMILY RESPONSE: VERBALIZED UNDERSTANDING OF PRE AND POST INJECTION INSTRUCTIONS . Allergies As of Date: 11/17/2023 (No Known Allergies) Date Reviewed: 11/05/2023 Reviewed by: Gian Pastor MA - Fully Assessed Reason for Visit: Preparations For Procedures [899] Cmt: Pre injection instructions Prescriptions as of 11/17/2023 - hydrOXYchloroQUINE (PLAQUENIL) 200 mg tablet Take 2 tablets by mouth once daily. - gabapentin (NEURONTIN) 100 mg capsule Take 100 mg by mouth three times a day. Taking 500 mg in am and 600 mg in pm - clonazePAM (KLONOPIN) 0.5 mg tablet Take 0.5 mg by mouth as directed. 2 tabs at night - aspirin, enteric coated (ASPIRIN, ENTERIC COATED) 81 mg EC tablet Take 81 mg by mouth once daily. - sodium chloride 1 gram tab Take 1 g by mouth twice daily. - amLODIPine (NORVASC) 5 mg tablet Take by mouth once daily. - simvastatin (ZOCOR) 20 mg tablet Take 20 mg by mouth daily at bedtime. - metoprolol tartrate, short acting, (LOPRESSOR) 50 mg tablet Take 50 mg by mouth twice daily. - ferrous sulfate 325 mg (65 mg iron) tablet Take 325 mg by mouth. Three times weekly - DULoxetine (CYMBALTA) 30 mg capsule Take 30 mg by mouth twice daily. - amitriptyline (ELAVIL) 25 mg tablet Take 25 mg by mouth daily at bedtime. - ZOLMitriptan (ZOMIG) 2.5 mg tablet Take 2.5 mg by mouth as needed. - omeprazole (PRILOSEC) 40 mg capsule Take 40 mg by mouth twice daily. - omega-3/dha/epa/dpa/fish oil (OMEGA-3 2100 ORAL) Take by mouth once daily. - cholecalciferol (VITAMIN D) 1,000 unit tab tablet Take 1,000 Units by mouth once daily. - vitamin b complex capsule Take 1 capsule by mouth once daily. - Ascorbic Acid (VITAMIN C) 500 mg chew Take 500 mg by mouth once daily. Problem List As Of Date: 11/17/2023 (None) Encounter Status:Closed by GISELLE VILLASEÑOR on 11/17/23[facility] [id number] Visit (SPMEST) SONIASUMA Casie ([id number]) 1945 F Date Time Provider Department 11/05/23 8:00 AM SARBJIT ANDREA SPMEST During your visit today, we recorded the following information about you: Sarbjit Andrea DO 11/08/2023 9:53 AM Signed Spine Care Path Radicular Leg Pain - Subacute (6 - 12 weeks) Initial Exam SUBJECTIVE HISTORY OF PRESENT ILLNESS: Suma Jason Sonia is a 78 year old female who presents with a chief complaint of low back pain and is self-referred. Patient presents today with complaints of pain in the low back and into the left hip down the left leg. She reports the symptoms have been present for approximately 2 months to this degree. Does report at least 18 years of generalized back pain but never stopped her from really doing anything. She was previously very active mowed her own lawn is a house moves furniture. Recently episode is the worst that she has ever dealt with. Reports pain started and has not resolved. Has been on 2 steroid packs. Has developed pain to the degree that is causing her to vomit she is unable to eat. Has undergone lumbar MRI which we have available here for our review. At times feels her left leg is weak hard to tell due to pain. Walking exacerbates her symptoms into the leg. Denies any injuries at the onset of her symptoms. Has been seeing chiropractor. Additionally deals with restless leg syndrome. Also deals with numbness and tingling in the bilateral hands. Also has history of migraine headaches which she reports is stable at this time. Currently is on gabapentin. Other Issues Addressed at the Visit Today: None. Precipitating Event: None PAIN EVALUATION 11/05/2023 0807 Pain Level: 7 Pain Location: Hip-Left Description: Burning;Throbbing Duration Amount of Time: 2 Duration Units: Months Frequency: Continuous Pain Radiation: Pain radiates into the left lower limb Aggravating Factors: Walking Alleviating Factors: Steroids, chiropractor, Pain Ratio: 50 % back pain, 50 % leg pain Prior Therapy: Medications, rest Litigation: No Workers' Compensation: No YELLOW AND BLUE FLAGS No-Neg Attitude; Back Pain is Disabling No-Avoiding Activity (for Fear of Pain) No-Depression or Anxiety Disorders No-Social Problems No-Substance Use Disorder No-Job Dissatisfaction No-Financial Disincentives Patient Entered Questionnaires PROMIS Score Percentiles Percentiles provide an indication of how the patient's score ranks in relation to the general population. Higher percentile rankings indicate better function/quality of life. 50th percentile is the average of the general population and indicates half of respondents had a worse score. Depression Screening: PHQ-9 Self-Harm (Item 9) response options: 0 Not at all 1 Several days 2 More than half the days 3 Nearly every day PHQ-9 Levels: 0-4 No - mild depression 5-9 Mild depression 10-14 Moderate depression 15-19 Moderately severe depression 20-27 Severe depression There is no problem list on file for this patient. No past medical history on file. No past surgical history on file. Social History Tobacco Use Smoking status: Never Smokeless tobacco: Never No family history on file. ALLERGIES No Known Allergies CURRENT MEDICATIONS: hydrOXYchloroQUINE (PLAQUENIL) 200 mg tablet Take 2 tablets by mouth once daily. gabapentin (NEURONTIN) 100 mg capsule Take 100 mg by mouth three times a day. Taking 500 mg in am and 600 mg in pm clonazePAM (KLONOPIN) 0.5 mg tablet Take 0.5 mg by mouth as directed. 2 tabs at night simvastatin (ZOCOR) 20 mg tablet Take 20 mg by mouth daily at bedtime. metoprolol tartrate, short acting, (LOPRESSOR) 50 mg tablet Take 50 mg by mouth twice daily. DULoxetine (CYMBALTA) 30 mg capsule Take 30 mg by mouth twice daily. amitriptyline (ELAVIL) 25 mg tablet Take 25 mg by mouth daily at bedtime. ZOLMitriptan (ZOMIG) 2.5 mg tablet Take 2.5 mg by mouth as needed. omeprazole (PRILOSEC) 40 mg capsule Take 40 mg by mouth twice daily. cholecalciferol (VITAMIN D) 1,000 unit tab tablet Take 1,000 Units by mouth once daily. vitamin b complex capsule Take 1 capsule by mouth once daily. Ascorbic Acid (VITAMIN C) 500 mg chew Take 500 mg by mouth once daily. aspirin, enteric coated (ASPIRIN, ENTERIC COATED) 81 mg EC tablet Take 81 mg by mouth once daily. (Patient not taking: Reported on 08/17/2023) sodium chloride 1 gram tab Take 1 g by mouth twice daily. amLODIPine (NORVASC) 5 mg tablet Take by mouth once daily. ferrous sulfate 325 mg (65 mg iron) tablet Take 325 mg by mouth. Three times weekly omega-3/dha/epa/dpa/fish oil (OMEGA-3 2100 ORAL) Take by mouth once daily. REVIEW OF SYSTEMS: Review of Systems Constitutional: Negative Eyes: Negative Hent: Negative Cardiovascular: Negative Respiratory: Negative GI: Negative : Negati (more content not included)...NormalOhiohealth Hardin Memorial HospitalXR LUMBAR 4V AP/LAT/ FLEX/EXTon [id number] LUMBAR 4V AP/LAT/ FLEX/EXT* * *Final Report* * * DATE OF EXAM: Nov 05 2023 8:01AM STX 5231 - XR LUMBAR 4V AP/LAT/ FLEX/EXT / PROCEDURE REASON: Other spondylosis with radiculopathy, lumbar region * * * * Physician Interpretation * * * * EXAM: XR LUMBAR 4V AP/LAT/ FLEX/EXT HISTORY: Other spondylosis with radiculopathy, lumbar region . chronic lower back pain TECHNIQUE: XR LUMBAR 4V AP/LAT/ FLEX/EXT Number of different views (projections): 4 COMPARISON: None. RESULT: Counting: Lumbosacral junction. For the purposes of this report, L4-5 is considered the level of the iliac crest and assume there are 5 lumbar-type vertebrae. Anatomic variant: None. Hardware: None. Alignment: Dextroscoliosis centered at L1-L2. Mild retrolisthesis L2 on L3. Retrolisthesis measures 8 mm on flexion and 9 mm on extension. Grade 2-3 anterolisthesis L5 on S1. Anterolisthesis measures 13 mm in flexion and 19 mm in extension. Vertebra: Vertebral body heights are maintained. No aggressive osseous lesion. Disc spaces: Disc space height loss at L2-L3, L4-L5, and L5-S1. No endplate erosions. Joints: Facet arthrosis L4-S1. Poor assessment of the pars interarticularis at L5 on radiography. Usof-bw-iaofpuom bilateral hip osteoarthritis. Soft tissues: Right upper quadrant surgical clips. IMPRESSION: Dextroscoliosis with multilevel degenerative disc disease most severe at L5-S1 with grade 2-3 anterolisthesis L5 on S1 with instability on flexion-extension radiographs. Screw Machine Tender: MAGDALENO Transcribe Date/Time: Nov 05 2023 10:58A Dictated by : SILVANA GREENE MD This examination was interpreted and the report reviewed and electronically signed by: SILVANA GREENE MD on Nov 05 2023 11:01AM EST [id number] Hardin Memorial HospitalXR Lumbar spine Views W flexion and W extensionon [id number]: Dextroscoliosis with multilevel degenerative disc disease most severe at L5-S1 with grade 2-3 anterolisthesis L5 on S1 with instability on flexion-extension radiographs. Screw Machine Tender: [facility] Transcribe Date/Time: Nov 05 2023 10:58A Dictated by : SILVANA GREENE MD This examination was interpreted and the report reviewed and electronically signed by: SILVANA GREENE MD on Nov 05 2023 11:01AM EST DIVISION OF RADIOLOGY* * *Final Report* * * DATE OF EXAM: Nov 05 2023 8:01AM STX 5231 - XR LUMBAR 4V AP/LAT/ FLEX/EXT / PROCEDURE REASON: Other spondylosis with radiculopathy, lumbar region * * * * Physician Interpretation * * * * EXAM: XR LUMBAR 4V AP/LAT/ FLEX/EXT HISTORY: Other spondylosis with radiculopathy, lumbar region . chronic lower back pain TECHNIQUE: XR LUMBAR 4V AP/LAT/ FLEX/EXT Number of different views (projections): 4 COMPARISON: None. RESULT: Counting: Lumbosacral junction. For the purposes of this report, L4-5 is considered the level of the iliac crest and assume there are 5 lumbar-type vertebrae. Anatomic variant: None. Hardware: None. Alignment: Dextroscoliosis centered at L1-L2. Mild retrolisthesis L2 on L3. Retrolisthesis measures 8 mm on flexion and 9 mm on extension. Grade 2-3 anterolisthesis L5 on S1. Anterolisthesis measures 13 mm in flexion and 19 mm in extension. Vertebra: Vertebral body heights are maintained. No aggressive osseous lesion. Disc spaces: Disc space height loss at L2-L3, L4-L5, and L5-S1. No endplate erosions. Joints: Facet arthrosis L4-S1. Poor assessment of the pars interarticularis at L5 on radiography. Tftd-cw-mvfjrtms bilateral hip osteoarthritis. Soft tissues: Right upper quadrant surgical clips. DIVISION OF RADIOLOGYProvider, [facility] [place] - 11/05/2023 * * *Final Report* * * DATE OF EXAM: Nov 05 2023 8:01AM STX 5231 - XR LUMBAR 4V AP/LAT/ FLEX/EXT / PROCEDURE REASON: Other spondylosis with radiculopathy, lumbar region * * * * Physician Interpretation * * * * EXAM: XR LUMBAR 4V AP/LAT/ FLEX/EXT HISTORY: Other spondylosis with radiculopathy, lumbar region . chronic lower back pain TECHNIQUE: XR LUMBAR 4V AP/LAT/ FLEX/EXT Number of different views (projections): 4 COMPARISON: None. RESULT: Counting: Lumbosacral junction. For the purposes of this report, L4-5 is considered the level of the iliac crest and assume there are 5 lumbar-type vertebrae. Anatomic variant: None. Hardware: None. Alignment: Dextroscoliosis centered at L1-L2. Mild retrolisthesis L2 on L3. Retrolisthesis measures 8 mm on flexion and 9 mm on extension. Grade 2-3 anterolisthesis L5 on S1. Anterolisthesis measures 13 mm in flexion and 19 mm in extension. Vertebra: Vertebral body heights are maintained. No aggressive osseous lesion. Disc spaces: Disc space height loss at L2-L3, L4-L5, and L5-S1. No endplate erosions. Joints: Facet arthrosis L4-S1. Poor assessment of the pars interarticularis at L5 on radiography. Bang-ps-eixkoyhv bilateral hip osteoarthritis. Soft tissues: Right upper quadrant surgical clips. IMPRESSION IMPRESSION: Dextroscoliosis with multilevel degenerative disc disease most severe at L5-S1 with grade 2-3 anterolisthesis L5 on S1 with instability on flexion-extension radiographs. Screw Machine Tender: [facility]ERE[facility] Transcribe Date/Time: Nov 05 2023 10:58A Dictated by : SILVANA GREENE MD This examination was interpreted and the report reviewed and electronically signed by: SILVANA GREENE MD on Nov 05 2023 11:01AM EST [facility] Study observation (narrative)[facility] Lumbar spine Views W flexion and W extensionOrdered By: Ccf Provider on 11-05-2023 [facility] HospitalCalcium [Mass/volume] in Serum or PlasmaOrdered By: Deb Zamora on 26-61-0338Ljqslte [Mass/Vol]10.1 mg/dL8.6-10.3FMercy Health St. Elizabeth Boardman HospitalCarbon dioxide, total [Moles/volume] in Serum or PlasmaOrdered By: Deb Zamora on 00-89-1866EZ3 [Moles/Vol]28.6 mmol/L21.0-31.0[facility] Medical CenterChloride [Moles/volume] in Serum or PlasmaOrdered By: Deb Zamora on 41-25-1187Ksdymhqm [Moles/Vol]98 mmol/G77-153FipscefuuAdena Pike Medical CenterCreatinine [Mass/volume] in Serum or PlasmaOrdered By: Deb Zamora on 24-15-9718Pvvotiaiwz [Mass/Vol]0.82 mg/dL0.60-1.20A[facility] Medical CenterGlucose [Mass/volume] in Serum or PlasmaOrdered By: Deb Zamora on 99-95-0465Jestvit [Mass/Vol]94 mg/cE43-906LoodfyeedAdena Pike Medical CenterComment on above:ADA recommended reference rangeRandom Glucose Reference Range is dependent on time and content of last meal. Glucose of more than 200 mg/dL in a nonstressed, ambulatory subject supports the diagnosisof Diabetes Mellitus.No Panel InformationOrdered By: Deb Zamora on 10-05-2023 Estimated GFR (CKD-EPI)> 60.0 mL/MinAdena Pike Medical CenterPharmacy Creatinine Clearance (ChemN/[facility] HospitalPotassium [Moles/volume] in Serum or PlasmaOrdered By: Deb Zamora on 10-05-2023 Potassium [Moles/Vol]4.5 mmol/L3.5-5.1FKnox Community Hospitalerum or plasma anion gap determinationOrdered By: Deb Zamora on 48-63-9520Lpkul gap [Moles/Vol]13.9 mmol/L6.0-15.0[facility] Hospitalodium [Moles/volume] in Serum or PlasmaOrdered By: Deb Zamora on 22-91-8023Pylvui [Moles/Vol]136 mmol/Z558-150WfuaemlsfAdena Pike Medical CenterUrea nitrogen [Mass/volume] in Serum or PlasmaOrdered By: Deb Zamora on 78-57-5883Whkv nitrogen [Mass/Vol]10 mg/dL7-25A[facility] Medical CenterCNPNon 79-05-1216FBPDEmsgmxmqb (INTMAL) SUMA SCOTT ([id number]) 1945 F Date Time Provider Department 08/18/23 BELINDA WEAVER During your visit today, we recorded the following information about you: Latoya Willoughby 08/18/2023 4:38 PM Signed [facility] is calling Belinda Weaver MD today to request clarification on hydrOXYchloroQUINE (PLAQUENIL)'s instructions. Please call pharmacy to clarify. Patient has been identified by name and birthdate. Duration of symptoms: N/A Person calling: Pharmacy Call patient at: [phone] Was an appointment scheduled: No Closing statement: Results or non-symptom based questions: Thank you for calling [facility], your call will be returned within the next business day. Thank you, Latoya Willoughby Allergies As of Date: 08/18/2023 (No Known Allergies) Date Reviewed: 08/17/2023 Reviewed by: Jany Judd RN - Fully Assessed Reason for Visit: Medication Question [2075] Visit Diagnosis:Primary osteoarthritis involving multiple joints [M15.9] Order(s):hydrOXYchloroQUINE (PLAQUENIL) 200 mg tabletTake 2 tablets by mouth once daily.Disp: 180 tabletRfl: 3 Prescriptions as of 08/19/2023 - hydrOXYchloroQUINE (PLAQUENIL) 200 mg tablet Take 2 tablets by mouth once daily. - gabapentin (NEURONTIN) 100 mg capsule Take 100 mg by mouth three times a day. Taking 500 mg in am and 600 mg in pm - clonazePAM (KLONOPIN) 0.5 mg tablet Take 0.5 mg by mouth as directed. 2 tabs at night - aspirin, enteric coated (ASPIRIN, ENTERIC COATED) 81 mg EC tablet Take 81 mg by mouth once daily. - sodium chloride 1 gram tab Take 1 g by mouth twice daily. - amLODIPine (NORVASC) 5 mg tablet Take by mouth once daily. - simvastatin (ZOCOR) 20 mg tablet Take 20 mg by mouth daily at bedtime. - metoprolol tartrate, short acting, (LOPRESSOR) 50 mg tablet Take 50 mg by mouth twice daily. - ferrous sulfate 325 mg (65 mg iron) tablet Take 325 mg by mouth. Three times weekly - DULoxetine (CYMBALTA) 30 mg capsule Take 30 mg by mouth twice daily. - amitriptyline (ELAVIL) 25 mg tablet Take 25 mg by mouth daily at bedtime. - ZOLMitriptan (ZOMIG) 2.5 mg tablet Take 2.5 mg by mouth as needed. - omeprazole (PRILOSEC) 40 mg capsule Take 40 mg by mouth twice daily. - omega-3/dha/epa/dpa/fish oil (OMEGA-3 2100 ORAL) Take by mouth once daily. - cholecalciferol (VITAMIN D) 1,000 unit tab tablet Take 1,000 Units by mouth once daily. - vitamin b complex capsule Take 1 capsule by mouth once daily. - Ascorbic Acid (VITAMIN C) 500 mg chew Take 500 mg by mouth once daily. Problem List As Of Date: 08/18/2023 (None) Prescriptions ordered this encounter Disp Refills Start End HYDROXYCHLOROQUINE 200 MG TABLET 180 * 3 08/19/2023 08/13/2024 Route: ORAL Sig: Take 2 tablets by mouth once daily. Medications Discontinued During This Encounter Prescriptions - hydrOXYchloroQUINE (PLAQUENIL) 200 mg tablet (Discontinued) Take 2 tablets by mouth once daily. Take one tab by mouth daily with food. Sunscreen when outdoors. See ophthalmology every 6-12months on med. Encounter Status:Closed by BELINDA WEAVER on 08/19/23NoMer[facility] [id number] Visit (KRISTINE) SONIASUMA ([id number]) 1945 F Date Time Provider Department 08/17/23 2:20 PM BELINDA WEAVER During your visit today, we recorded the following information about you: Pulse Blood pressure Weight 72/minute 130/79 86.3 kg Belinda Weaver MD 08/17/2023 2:48 PM Signed [facility] Date of Service: 08/17/2023 Patient: Suma Scott Medical Record: [id number] Primary Care Physician: Mayco Velasquez DO Last Rheumatology visit: 08/07/2022 (with Belinda Weaver) History of Present Illness Suma Scott is a 78 year old female who presents on 08/17/2023 for an in-person visit for evaluation of Osteoarthritis. She is currently taking hydroxychloroquine sulfate. HISTORY OF PRESENT ILLNESS This patient is known to me from my previous practice with [facility] with a diagnosis of osteoarthritis. This patient had been on hydroxychloroquine 400 mg daily and then was lost to follow-up. As she has been off the hydroxychloroquine for several months now. She is experiencing breakthrough pain in her fingers, thumbs, ankles and feet. Her low back is also progressing over time. She did feel better when she was on the hydroxychloroquine and was inquiring about restarting it. 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 She also has numbness in her feet and her fingertips. She had a recent EMG of her hands showing very mild carpal tunnel and she was wondering if this is the source of her fingertip numbness. Does she will get some sharp shooting pain in the back of her legs in the calf region now last 15 or 20 minutes randomly. She tends to get leg cramping at night more in the left than the right. She does have well established degenerative disc disease of the lumbar spine on x-ray findings. INTERVAL HISTORY Patient returns for reevaluation management of her osteoarthritis. Since last visit the patient has reinitiated hydroxychloroquine 400 mg daily. Over the past year she felt this was providing reasonly good relief for her arthritis pain. Then due to scheduling she has come up 2 months short without the hydroxychloroquine and has started to experience some breakthrough pain in her fingers and thumbs. She is also developed some left sciatica pain on the posterior aspect of her left thigh that comes and goes. She is working with stretching and this seems to be easing it up. Otherwise there are no other new musculoskeletal complaints. Her general health has remained stable. Her last eye exam was stable on the hydroxychloroquine. Patient-Entered Data PAIN EVALUATION 08/17/2023 1418 Pain Level: 5 Pain Location: Hand-Left Bilateral hand Description: Shooting;Numbness;Sharp Duration Amount of Time: -- Bilateral thumb, first and second fingers Frequency: Continuous Intervention/Comfort measure: -- Nothing helps Comments: also has left buttock all the way down to her foot pain sharp, cutting pain 10/10 intermittent can last days PROMIS Assessments RAPID 3 Mota Activities of Daily Living No Data Dress self? - Get in and out of bed? - Walk outdoors? - Wash and dry body? - Get in and out of car? - RAPID 3 Disease Activity Weighed Score Levels: 0 - 1: Near Remission 1.3 - 2.0: Low Severity 2.3 - 4.0: Moderate Severity 4.3 - 10.0: High Severity Review of Systems Review of Systems CONSTITUTION: Negative for: Weight loss or gain, Fever. Chills, Night sweats HEENT: Negative for: Nosebleeds, Mouth sores, Trouble swallowing, Dry mouth RESPIRATORY: Negative for: Cough, Shortness of breath, Pain with breathing, Coughing up blood GASTROINTESTINAL: Negative for: Melena, Diarrhea, Abdominal pain, Heartburn, MUSCULOSKELETAL: Positive for: Arthralgias and Myalgias Negative for: Muscle weakness, Joint swelling and Morning Joint Stiffness NEUROLOGICAL: Negative for: Headaches, Numbness, Memory loss, SKIN: Negative for: Rashes, Sun sensitive rashes, Skin color changes, Hair loss, Nail changes EYES: Negative for: Eye pain, Eye redness, Visual disturbance, Eye dryness CARDIOVASCULAR: Negative for: Chest pain, Leg swelling, Arrhythmia, Presyncope GENITOURINARY: Negative for: Dysuria, Hematuria, Ulceration HEMATOLOGIC/LYMPHATIC: Negative for: Swollen glands All other reviewed and negative other than HPI. Past Medical History No past medical history on file. Past Surgical History No past surgical history on file. Family History No family history on file. Social History Current Medications Current Outpatient Medications Medication Sig gabapentin (NEURONTIN) 100 mg capsule Take 100 mg by mouth three times a day. Taking 500 mg in am and 600 mg in (more content not included)...NormalOhiohealth Hardin Memorial HospitalBacteria [Presence] in Urine by AutomatedOrdered By: Mayco Velasquez on 03-28-4936Akadnkna Auto Ql (U)None seenNone SeenAdena Pike Medical CenterBilirubin Test strip Ql (U)Ordered By: Mayco Velasquez on 06-12-2023 Bilirubin Ql (U)NegativeNegativeAdena Pike Medical CenterColor Auto (U) Ordered By: Mayco Velasquez on 51-14-0952Ocvzu (U)Dark yellowYellowAdena Pike Medical CenterErythrocytes [#/area] in Urine sediment by Automated countOrdered By: Mayco Velasquez on 94-65-3344TFC Auto (Urine sed) [#/Area]0-1 [HPF]0-4FMercy Health St. Elizabeth Boardman HospitalKetones Auto test strip (U) [Mass/Vol] Ordered By: Mayco Velasquez on 02-95-6962Yqgeyml (U) [Mass/Vol]NegativeNegative [facility] CenterLaboratory - UrinalysisOrdered By: Mayco Velasquez on 10-58-2337Yecjuah casts LM Ql (Urine sed)0-8 [LPF]0-8[facility] CenterLeukocytes [#/area] in Urine sediment by Automated countOrdered By: Mayco Velasquez on 38-59-8709PCW Auto (Urine sed) [#/Area]0-1 [HPF]0-4FMercy Health St. Elizabeth Boardman HospitalNitrite Test strip Ql (U)Ordered By: Mayco Velasquez on 59-08-8059Hfxjokz Ql (U)NegativeNegMercer County Community HospitalProtein Auto test strip (U) [Mass/Vol]Ordered By: Mayco Velasquez on 10-55-7156Izxstnx (U) [Mass/Vol]NegativeNegUniversity Hospitals St. John Medical Centerpecific gravity Auto test strip (U) [Rel density]Ordered By: Mayco Velasquez on 87-85-8840Bldanytc gravity (U) [Rel density]1.0171.001-1.030[facility] Squamous epithelial cells detection in urine sediment by light microscopyOrdered By: Mayco Velasquez on 66-16-9509Pwepaiktqy cells.squamous LM Ql (Urine sed)None seen [HPF]0-2FMercy Health St. Elizabeth Boardman HospitalUrine clarity by refractometry automatedOrdered By: Mayco Velasquez on 93-56-9759Pwkions Refractometry automated (U)ClearCleCommunity Memorial HospitalUrine culture routineOrdered By: Mayco Velasquez on 89-54-0276Dngjyenk identified Cx Nom (U)Escherichia coli [facility] CenterUrine glucose measurement by automated test strip (mass/volume)Ordered By: Mayco Velasquez on 42-56-1708Ssnihix Auto test strip (U) [Mass/Vol]Normal mg/dLNormalAdena Pike Medical CenterUrine hemoglobin detection by automated test stripOrdered By: Mayco Velasquez on 23-92-2727Imuhlmimml Auto test strip Ql (U)NegativeNegMercer County Community HospitalUrine leukocyte esterase detection by automated test stripOrdered By: Mayco Velasquez on 03-43-4817Qjixxidif esterase Auto test strip Ql (U)Negative NegativeAdena Pike Medical CenterUrobilinogen Auto test strip (U) [Mass/Vol]Ordered By: Mayco Velasquez on 33-06-2678Mzqypjiqxcpk (U) [Mass/Vol] Normal mg/dLNormalAdena Pike Medical CenterpH Auto test strip (U)Ordered By: Mayco Velasquez on 26-46-4079gH (U)7.0 [pH]5.0-9.0[facility] CenterAutomated erythrocytes count in urine sediment (number/area)Ordered By: Mayco Velasquez on 50-05-6338UQV Auto (Urine sed) [#/Area]1-2 [HPF]0-4FMercy Health St. Elizabeth Boardman HospitalAutomated leukocytes count in urine sediment (number/area)Ordered By: Mayco Velasquez on 02-61-2344KZC Auto (Urine sed) [#/Area] 1-2 [HPF]0-4FMercy Health St. Elizabeth Boardman HospitalBilirubin Test strip Ql (U)Ordered By: Mayco Velasquez on 25-36-0744Wqcauglgz Ql (U)NegativeNegativeAdena Pike Medical CenterColor Auto (U)Ordered By: Mayco Velasquez on 83-58-7292Banjd (U)Dark yellowYellowAdena Pike Medical CenterKetones Auto test strip (U) [Mass/Vol]Ordered By: Mayco Velasquez on 74-50-5345Prfjgtz (U) [Mass/Vol]Negative NegativeAdena Pike Medical CenterLaboratory - UrinalysisOrdered By: Mayco Velasquez on 61-72-3418Crugyxe casts LM Ql (Urine sed)0-8 [LPF]0-8[facility] CenterNitrite Test strip Ql (U)Ordered By: Mayco Velasquez on 44-42-4214Yomronj Ql (U)NegativeNegativeA[facility]a Pike Medical CenterProtein Auto test strip (U) [Mass/Vol]Ordered By: Mayco Velasquez on 75-62-4603Hcxzcqa (U) [Mass/Vol]NegativeNegativeWilson Memorial Hospitalpecific gravity Auto test strip (U) [Rel density]Ordered By: Mayco Velasquez on 88-25-5472Pdfgjgay gravity (U) [Rel density]1.0211.001-1.030[facility] Squamous epithelial cells detection in urine sediment by light microscopyOrdered By: Mayco Velasquez on 23-92-3626Shkpfnmngw cells.squamous LM Ql (Urine sed)0-1 [HPF]0-2FMercy Health St. Elizabeth Boardman HospitalUrine bacteria detection by automated methodOrdered By: Mayco Velasquez on 54-41-1284Ebbgwwhc Auto Ql (U)None seenNone SeenAdena Pike Medical CenterUrine clarity by refractometry automated Ordered By: Mayco Velasquez on 34-55-7457Hgohdsv Refractometry automated (U)Clear ClearAdena Pike Medical CenterUrine culture routineOrdered By: Mayco Velasquez on 24-91-2745Lxbxvlrk identified Cx Nom (U)Escherichia coliAdena Pike Medical CenterUrine glucose measurement by automated test strip (mass/volume)Ordered By: Mayco Velasquez on 86-32-8897Seukehr Auto test strip (U) [Mass/Vol]Normal mg/dLNormalAdena Pike Medical CenterUrine hemoglobin detection by automated test stripOrdered By: Mayco Velasquez on 06-01-2023 Hemoglobin Auto test strip Ql (U)NegativeNegativeAdena Pike Medical CenterUrine leukocyte esterase detection by automated test stripOrdered By: Mayco Velasquez on 04-72-4775Xyamwmsjl esterase Auto test strip Ql (U)1+Negative [facility] CenterUrobilinogen Auto test strip (U) [Mass/Vol] Ordered By: Mayco Velasquez on 36-01-6106Oclhhjutxblq (U) [Mass/Vol]Normal mg/dL NormalAdena Pike Medical CenterpH Auto test strip (U)Ordered By: Mayco Velasquez on 76-19-9059kM (U)6.0 [pH]5.0-9.0[facility] Automated erythrocytes count in urine sediment (number/area)Ordered By: Mayco Velasquez on 72-99-4038NKK Auto (Urine sed) [#/Area]0-1 [HPF]0-4FMercy Health St. Elizabeth Boardman HospitalAutomated leukocytes count in urine sediment (number/area)Ordered By: Mayco Velasquez on 86-68-3881EZO Auto (Urine sed) [#/Area]None seen [HPF]0-4 [facility] CenterBilirubin Test strip Ql (U)Ordered By: Mayco Velasquez on 73-91-8873Vamrvfsjp Ql (U)NegativeNegMercer County Community HospitalColor Auto (U)Ordered By: Mayco Velasquez on 37-04-0332Wglbn (U)YellowYellow [facility] CenterKetones Auto test strip (U) [Mass/Vol]Ordered By: Mayco Velasquez on 93-31-9573Wlpoteg (U) [Mass/Vol]NegativeNegMercer County Community HospitalLaboratory - UrinalysisOrdered By: Mayco Velasquez on 37-05-1071Uvybnlr casts LM Ql (Urine sed)None seen [LPF]0-8[facility] CenterNitrite Test strip Ql (U)Ordered By: Mayco Velasquez on 05-25-2023 Nitrite Ql (U)NegativeNegMercer County Community HospitalProtein Auto test strip (U) [Mass/Vol]Ordered By: Mayco Velasquez on 19-28-3065Zqmlorg (U) [Mass/Vol]NegativeNegUniversity Hospitals St. John Medical Centerpecific gravity Auto test strip (U) [Rel density]Ordered By: Mayco Velasquez on 21-44-2387Ztnncjij gravity (U) [Rel density]1.0101.001-1.030[facility] Squamous epithelial cells detection in urine sediment by light microscopyOrdered By: Mayco Velasquez on 21-02-5968Jeqrcivwld cells.squamous LM Ql (Urine sed)None seen [HPF]0-2FMercy Health St. Elizabeth Boardman HospitalUrine bacteria detection by automated methodOrdered By: Mayco Velasquez on 50-86-0887Ifnqmoyt Auto Ql (U)None seenNone SeenAdena Pike Medical CenterUrine clarity by refractometry automatedOrdered By: Mayco Velasquez on 20-59-4611Pbsehnc Refractometry automated (U)ClearClearFMercy Health St. Elizabeth Boardman HospitalUrine culture routineOrdered By: Mayco Velasquez on 89-22-3786Rlrflgmi identified Cx Nom (U)Pseudomonas aeruginosa [facility] CenterUrine glucose measurement by automated test strip (mass/volume)Ordered By: Mayco Velasquez on 07-62-1318Yvutrzk Auto test strip (U) [Mass/Vol]Normal mg/dLNormalAdena Pike Medical CenterUrine hemoglobin detection by automated test stripOrdered By: Mayco Velasquez on 12-21-4223Qbwhgmdgzj Auto test strip Ql (U)NegativeNegativeAdena Pike Medical CenterUrine leukocyte esterase detection by automated test stripOrdered By: Mayco Velasquez on 10-06-2511Fnycsozln esterase Auto test strip Ql (U)Negative NegativeAdena Pike Medical CenterUrobilinogen Auto test strip (U) [Mass/Vol]Ordered By: Mayco Velasquez on 94-27-8999Nifrjuyejntb (U) [Mass/Vol] Normal mg/dLNormalAdena Pike Medical CenterpH Auto test strip (U)Ordered By: Mayco Velasquez on 00-66-6826wU (U)7.5 [pH]5.0-9.0[facility] CenterAlanine aminotransferase [Enzymatic activity/volume] in Serum or Plasma Ordered By: Mayco Velasquez on 33-35-5737VMQ [Catalytic activity/Vol]42 U/L7-52 [facility] CenterAlbumin [Mass/volume] in Serum or Plasma by Bromocresol green (BCG) dye binding methoOrdered By: Mayco Velasquez on 05-15-2023 Albumin BCG dye [Mass/Vol]4.7 g/dL3.5-5.7FMercy Health St. [facility] Hospital Alkaline phosphatase [Enzymatic activity/volume] in Serum or PlasmaOrdered By: Mayco Velasquez on 81-79-4475TGX [Catalytic activity/Vol]87 U/T45-942NvgaxgoxjAdena Pike Medical CenterAspartate aminotransferase [Enzymatic activity/volume] in Serum or PlasmaOrdered By: Mayco Velasquez on 09-62-7687MWM [Catalytic activity/Vol]33 U/H70-24OqnxncwpyAdena Pike Medical CenterAutomated erythrocytes count in urine sediment (number/area)Ordered By: Mayco Velasquez on 13-56-1982EKU Auto (Urine sed) [#/Area]0-1 [HPF]0-4FMercy Health St. Elizabeth Boardman HospitalAutomated leukocytes count in urine sediment (number/area)Ordered By: Mayco Velasquez on 85-20-5137GMT Auto (Urine sed) [#/Area]1-2 [HPF]0-4FMercy Health St. Elizabeth Boardman HospitalBasophils Auto (Bld) [#/Vol]Ordered By: Mayco Velasquez on 05-15-2023 Basophils (Bld) [#/Vol]0.0 10*3/uL0.0-0.2FMercy Health St. [facility] Hospital Basophils/100 WBC Auto (Bld)Ordered By: Mayco Velasquez on 88-83-6607Pgyhnaxcx/100 WBC (Bld)0.7 %.[facility] CenterBilirubin Test strip Ql (U) Ordered By: Mayco Velasquez on 94-94-8919Hpkdlujhr Ql (U)NegativeNegativeAdena Pike Medical CenterBilirubin.total [Mass/volume] in Serum or PlasmaOrdered By: Mayco Velasquez on 19-75-8268Rrwuecvai [Mass/Vol]0.5 mg/dL0.3-1.0[facility] CenterCalcium [Mass/volume] in Serum or PlasmaOrdered By: Mayco Velasquez on 96-89-8988Cwegodz [Mass/Vol]9.6 mg/dL8.6-10.3FMercy Health St. Elizabeth Boardman HospitalCarbon dioxide, total [Moles/volume] in Serum or PlasmaOrdered By: Mayco Velasquez on 17-38-9982MI9 [Moles/Vol]33.3 mmol/L21.0-31.0[facility] CenterChloride [Moles/volume] in Serum or PlasmaOrdered By: Mayco Velasquez on 79-95-4244Kocnqfbp [Moles/Vol]101 mmol/C54-141HkthuscrfAdena Pike Medical CenterCholesterol [Mass/volume] in Serum or PlasmaOrdered By: Mayco Velasquez on 72-93-9292Veupayyxxdb [Mass/Vol]133 mg/aD086-000DkkweavtbAdena Pike Medical CenterComment on above:Chol less than 200 mg/dl low riskChol 201-239 mg/dl borderline riskChol 240 mg/dl and greater high riskCholesterol in LDL Calc [Mass/Vol]Ordered By: Mayco Velasquez on 05-26-2967Dpxmmwvpqdl in LDL [Mass/Vol]41 mg/dL0-100[facility] CenterComment on above:LDL ATP III CLASSIFICATIONLDL less than 100 mg/dL OptimalLDL 100-129 mg/dL Near or above vkludcfKWQ821-921 mg/dL Borderline highLDL 160-189 mg/dL HighLDL greater than 189 mg/dL Very highCholesterol in VLDL Calc [Mass/Vol]Ordered By: Mayco Velasquez on 80-03-1685Xfookncqkrm in VLDL [Mass/Vol]29 mg/dLAdena Pike Medical CenterColor Auto (U)Ordered By: Mayco Velasquez on 69-90-6100Rqxha (U)YellowYellow [facility] CenterCreatinine [Mass/volume] in Serum or Plasma Ordered By: Mayco Velasquez on 24-46-2193Mohtuvcvti [Mass/Vol]0.83 mg/dL0.60-1.20 [facility] CenterEosinophils Auto (Bld) [#/Vol]Ordered By: Mayco Velasquez on 41-54-5748Lmfeaxibafb (Bld) [#/Vol]0.2 10*3/uL0.0-0.45[facility] CenterEosinophils/100 WBC Auto (Bld)Ordered By: Mayco Velasquez on 66-07-6441Mpmcosgvuez/100 WBC (Bld)3.8 %.[facility] Erythrocyte distribution width Auto (RBC) [Ratio]Ordered By: Mayco Velasquez on 67-22-8509Yipzeggudnc distribution width (RBC) [Ratio]13.7 %11.9-15.3FMercy Health St. Elizabeth Boardman HospitalFerritin [Mass/volume] in Serum or PlasmaOrdered By: Mayco Velasquez on 73-50-0357Gtvavxoh [Mass/Vol]43.5 ng/mL11.0-306.8[facility] CenterGlobulin Calc (S) [Mass/Vol]Ordered By: Mayco Velasquez on 69-80-4398Yyjcgoqt (S) [Mass/Vol]2.2 g/dLAdena Pike Medical Center Glucose [Mass/volume] in Serum or PlasmaOrdered By: Mayco Velasquez on 05-15-2023 Glucose [Mass/Vol]88 mg/dG96-551YcewwndagAdena Pike Medical CenterComment on above:ADA recommended reference rangeRandom Glucose Reference Range is dependent on time and content of last meal. Glucose of more than 200 mg/dL in a nonstressed, ambulatory subject supports the diagnosisof Diabetes Mellitus. Glucose mean value [Mass/volume] in Blood Estimated from glycated hemoglobin Ordered By: Mayco Velasquez on 07-61-8329Qqpjkwi glucose Estimated from glycated hemoglobin (Bld) [Mass/Vol]111 mg/dLAdena Pike Medical CenterHematocrit Auto (Bld) [Volume fraction]Ordered By: Mayco Velasquez on 36-79-7676Txzmqdkbgi (Bld) [Volume fraction]42.6 %34.0-46.4FMercy Health St. [facility] Hemoglobin A1c percentageOrdered By: Mayco Velasquez on 02-17-3358HjC2j (Bld) [Mass fraction]5.5 %4.3-5.6FMercy Health St. Elizabeth Boardman HospitalComment on above: Increased risk for diabetes: 5.7 - 6.4diabetes: >6.4glycemic control for adults with diabetes: <7.0Hemoglobin [Mass/volume] in BloodOrdered By: Mayco Velasquez on 49-28-8464Jgwzbkbqke (Bld) [Mass/Vol]14.2 g/dL11.8-15.4FMercy Health St. Elizabeth Boardman HospitalIron [Mass/volume] in Serum or PlasmaOrdered By: Mayco Velasquez on 26-98-7265Fqio [Mass/Vol]71 ug/eC11-660RqotcwysfAdena Pike Medical CenterIron binding capacity [Mass/volume] in Serum or PlasmaOrdered By: Mayco Velasquez on 76-92-5135Wnsf binding capacity [Mass/Vol]370 ug/xG302-852RdnixmjzcAdena Pike Medical CenterIron saturation [Mass Fraction] in Serum or PlasmaOrdered By: Mayco Velasquez on 66-58-0532Jxrc saturation [Mass fraction]19.2 %20-50[facility] CenterKetones Auto test strip (U) [Mass/Vol]Ordered By: Mayco Velasquez on 37-11-1520Awxbizx (U) [Mass/Vol]NegativeNegativeAdena Pike Medical CenterLaboratory - UrinalysisOrdered By: Mayco Velasquez on 05-15-2023 Hyaline casts LM Ql (Urine sed)0-8 [LPF]0-8[facility] Leukocytes [#/volume] corrected for nucleated erythrocytes in Blood by Automated counOrdered By: Mayco Velasquez on 76-19-5308IPG corrected for nucl RBC Auto (Bld) [#/Vol]5.1 10*3/uL3.8-11.6FMercy Health St. Elizabeth Boardman HospitalLymphocytes Auto (Bld) [#/Vol]Ordered By: Mayco Velasquez on 59-62-0252Bbwyecukknl (Bld) [#/Vol]1.6 10*3/uL1.00-4.8[facility] CenterLymphocytes/100 WBC Auto (Bld) Ordered By: Mayco Velasquez on 04-07-0301Pwzlsjezzgz/100 WBC (Bld)32.2 %.[facility] CenterH Auto (RBC) [Entitic mass]Ordered By: Mayco Velasquez on 25-90-6055SFK (RBC) [Entitic mass]28.2 pg24.7-34.3FMercy Health St. Elizabeth Boardman HospitalMCHC Auto (RBC) [Mass/Vol]Ordered By: Mayco Velasquez on 28-55-2566UTSG (RBC) [Mass/Vol]33.4 g/dL32.0-35.0[facility] CenterMCV Auto (RBC) [Entitic vol]Ordered By: Mayco Velasquez on 96-23-8612PMB (RBC) [Entitic vol]84.4 bC10-431BdjsajrnsAdena Pike Medical CenterMonocytes Auto (Bld) [#/Vol]Ordered By: Mayco Velasquez on 24-70-3173Aornimrrc (Bld) [#/Vol]0.6 10*3/uL0.0-0.8[facility] CenterMonocytes/100 WBC Auto (Bld)Ordered By: Mayco Velasquez on 31-06-2087Cqivzovxy/100 WBC (Bld)12.1 %.[facility] Neutrophils Auto (Bld) [#/Vol]Ordered By: Mayco Velasquez on 99-22-3128Lriseesdpav (Bld) [#/Vol]2.6 10*3/uL1.8-7.7FMercy Health St. Elizabeth Boardman HospitalNeutrophils/100 WBC Auto (Bld)Ordered By: Mayco Velasquez on 79-53-0222Wtbgzvatlfd/100 WBC (Bld) 51.2 %.[facility] CenterNitrite Test strip Ql (U)Ordered By: Mayco Velasquez on 00-02-9629Ffcjqjl Ql (U)NegativeNegativeAdena Pike Medical CenterNo Panel InformationOrdered By: Mayco Velasquez on 05-15-2023 Estimated GFR (CKD-EPI)> 60.0 mL/MinAdena Pike Medical CenterPharmacy Creatinine Clearance (ChemN/AFMercy Health St. Elizabeth Boardman HospitalNucleated erythrocytes [Presence] in Blood by Automated countOrdered By: Mayco Velasquez on 52-03-7564Tsodeawsl RBC Auto Ql (Bld)0.1 /100{WBC}0-0.5FMercy Health St. Elizabeth Boardman HospitalPlatelet mean volume Auto (Bld) [Entitic vol]Ordered By: Mayco Velasquez on 18-48-7334Wasclgyh mean volume (Bld) [Entitic vol]8.0 fL6.3-10.7 [facility] CenterPlatelets Auto (Bld) [#/Vol]Ordered By: Mayco Velasquez on 47-73-5949Gqukgvgwe (Bld) [#/Vol]258 10*3/lS673-179OrwhbpgyvAdena Pike Medical CenterPotassium [Moles/volume] in Serum or PlasmaOrdered By: Mayco Velasquez on 45-57-0425Ypgmmyief [Moles/Vol]4.7 mmol/L3.5-5.1FMercy Health St. Elizabeth Boardman HospitalProtein Auto test strip (U) [Mass/Vol]Ordered By: Mayco Velasquez on 17-73-3515Sfkvgdk (U) [Mass/Vol]NegativeNegativeAdena Pike Medical CenterProtein [Mass/volume] in Serum or PlasmaOrdered By: Mayco Velasquez on 64-58-7659Oglijdc [Mass/Vol]6.9 g/dL6.4-8.9[facility] CenterRBC Auto (Bld) [#/Vol]Ordered By: Mayco Velasquez on 31-95-6110YHX (Bld) [#/Vol]5.04 10*6/uL3.60-5.00[facility] Hospitalerum or plasma albumin/globulin mass ratioOrdered By: Mayco Velasquez on 05-15-2023 Albumin/Globulin [Mass ratio]2.1 {ratio}[facility] Hospitalerum or plasma anion gap determinationOrdered By: Mayco Velasquez on 13-59-0534Qoadw gap [Moles/Vol]8.4 mmol/L6.0-15.0[facility] Hospitalerum or plasma high density lipoprotein (HDL) cholesterol measurementOrdered By: Mayco Velasquez on 01-78-8812Fgiuwqtoiqx in HDL [Mass/Vol]62 mg/tL68-69NarvyzzrfAdena Pike Medical CenterComment on above:HDL CHOL ATP-III CLASSIFICATION Cardiovascular RiskHDL > or equal to 60 mg/dL LOWHDL < 40 mg/dL HIGHSerum or plasma total cholesterol/high density lipoprotein (HDL) cholesterol mass ratOrdered By: Mayco Velasquez on 90-86-5767Lwcbmpvhlcz.total/Cholesterol in HDL [Mass ratio]2.1 {ratio}<5.0[facility] Hospitalodium [Moles/volume] in Serum or PlasmaOrdered By: Mayco Velasquez on 76-99-0668Iauyje [Moles/Vol]138 mmol/V223-314 [facility] Hospitalpecific gravity Auto test strip (U) [Rel density]Ordered By: Mayco Velasquez on 32-10-6361Weljrcgi gravity (U) [Rel density] 1.0091.001-1.030[facility] Hospitalquamous epithelial cells detection in urine sediment by light microscopyOrdered By: Mayco Velasquez on 66-06-3473Ujrfuphvba cells.squamous LM Ql (Urine sed)0-1 [HPF]0-2FMercy Health St. Elizabeth Boardman HospitalThyrotropin [Units/volume] in Serum or PlasmaOrdered By: Mayco Velasquez on 13-80-0502FNN Qn2.95 m[IU]/L0.45-5.33[facility] CenterTransferrin [Mass/volume] in Serum or PlasmaOrdered By: Mayco Velasquez on 73-91-2253Swwwiihbhoc [Mass/Vol]264 mg/xK330-850LuhzqaaxeAdena Pike Medical CenterTriglyceride [Mass/volume] in Serum or PlasmaOrdered By: Mayco Velasquez on 26-46-1665Cybgmbkmakdk [Mass/Vol]149 mg/dL0-149[facility] Comment on above:TRIG ATP III CLASSIFICATIONTRIG less than 150 mg/dL NormalTRIG 150-199 mg/dL Borderline highTRIG 200-500 mg/dL High TRIG greater than 500 mg/dL Very highStandard traceable to the Center for Disease Conrtrol and Prevention (CDC) test method.Urea nitrogen [Mass/volume] in Serum or PlasmaOrdered By: Mayco Velasquez on 74-04-8749Wtkc nitrogen [Mass/Vol]10 mg/dL7-25[facility] CenterUrine bacteria detection by automated methodOrdered By: Mayco Velasquez on 37-96-8235Egtarpjy Auto Ql (U)None seenNone SeenAdena Pike Medical CenterUrine clarity by refractometry automatedOrdered By: Mayco Velasquez on 94-20-6911Wxyhdyu Refractometry automated (U)ClearClearFMercy Health St. Elizabeth Boardman HospitalUrine culture routineOrdered By: Mayco Velasquez on 05-15-2023 Bacteria identified Cx Nom (U)Escherichia coliAdena Pike Medical Center Urine glucose measurement by automated test strip (mass/volume)Ordered By: Mayco Velasquez on 31-05-7162Tjmieis Auto test strip (U) [Mass/Vol]Normal mg/dLNoLouis Stokes Cleveland VA Medical CenterUrine hemoglobin detection by automated test stripOrdered By: Mayco Velasquez on 36-64-7388Mlbojlstze Auto test strip Ql (U) NegativeNegativeAdena Pike Medical CenterUrine leukocyte esterase detection by automated test stripOrdered By: Mayco Velasquez on 87-49-1091Zmmyldaqm esterase Auto test strip Ql (U)1+NegativeAdena Pike Medical Center Urobilinogen Auto test strip (U) [Mass/Vol]Ordered By: Mayco Velasquez on 07-99-5406Nyvyujygyyfh (U) [Mass/Vol]Normal mg/dLNoOhioHealth Dublin Methodist HospitalVitamin D+Metabolites [Mass/volume] in Serum or PlasmaOrdered By: Mayco Velasquez on 22-55-3697Cvponaa D+Metabolites [Mass/Vol]51.7 ng/rI75-619 [facility] CenterComment on above:VITAMIN D STATUS 25(OH)VITAMIN D RANGE (ng/mL) Deficient <20 Insufficient 20 to <38Awhxgvqvus29 to 100Reference: Sarah MF,Ligia LOUIS, Skylar BALDERAS, et al. Evaluation,treatment, and prevention of vitamin D deficiency; an Endocrine Society clinical practice guideline. JCEM. 2010; 96(7):1911-30.WBC Auto (Bld) [#/Vol]Ordered By: Mayco Velasquez on 73-64-5683ABQ (Bld) [#/Vol]5.1 10*3/uL 3.8-11.6FMercy Health St. Elizabeth Boardman HospitalpH Auto test strip (U)Ordered By: Mayco Velasquez on 90-78-5986eZ (U)8.0 [pH]5.0-9.0[facility] CenterAuto Diffon 01-36-9509Wibaezjrf/100 WBC (Bld)1.1 %Normal0.0-2.0[facility] HospitalComment on above:Order Comment: Order Added by Discern Expert.Performed By: #### [id number], [id number], [id number], [id number], [id number], [id number], [id number], [id number], 0246851, [id number] #### [facility] [address], [place] [address]Iervuxcwi/Leukocytes Auto (Bld) [Pure # fraction]0.1 E9/LNormal 0.0-0.2FThe Jewish HospitalComment on above:Order Comment: Order Added by Discern Expert.Performed By: #### [id number], [id number], [id number], [id number], [id number], [id number], 6382534, 70515503, [id number], [id number] #### [facility] [address], [place] [address]Qncrfyjkybb/100 WBC (Bld)3.4 %Normal0.0-8.0[facility] HospitalComment on above:Order Comment: Order Added by Discern Expert.Performed By: #### [id number], [id number], [id number], 2336857, [id number], [id number], 7289553, 45328125, 0371519, [id number] #### [facility] [address], [place] [address]Mcpvygoqiyn/Leukocytes Auto (Bld) [Pure # fraction]0.2 E9/L Normal0.0-0.5FThe Jewish HospitalComment on above:Order Comment: Order Added by Discern Expert.Performed By: #### [id number], [id number], 6326097, 0883472, 68746119, [id number], 1979343, [id number], 0902777, [id number] #### [facility] [address], [place] [address]Miwnegvqelc/100 WBC (Bld)31.1 %Pcvozb99.0-50.0[facility] HospitalComment on above:Order Comment: Order Added by Discern Expert. Performed By: #### [id number], [id number], 2225441, 8117485, 09345595, [id number], 4613935, 36698225, 2809503, [id number] #### [facility] [address] [place] [address]Plnxdrbnjaa/Leukocytes Auto (Bld) [Pure # fraction]1.6 E9/L Normal1.0-4.0[facility] HospitalComment on above:Order Comment: Order Added by Discern Expert.Performed By: #### [id number], [id number], 2664670, 7619064, [id number], [id number], 3030675, 98334747, 0580947, [id number] #### [facility] [address] [place] [address]Lwzmtbyye/100 WBC (Bld)11.9 %Normal4.0-14.0[facility] HospitalComment on above:Order Comment: Order Added by Discern Expert.Performed By: #### [id number], [id number], [id number], [id number], [id number], [id number], [id number], [id number], [id number], [id number] #### [facility] [address] [place] [address] [id number]/Leukocytes Auto (Bld) [Pure # fraction]0.6 E9/LNormal 0.2-1.0Berger HospitalComment on above:Order Comment: Order Added by Discern Expert.Performed By: #### [id number], [id number], [id number], [id number], [id number], [id number], [id number], [id number], [id number], [id number] #### [facility] [address], [place] [address]Xmiddtusmrx/100 WBC (Bld)52.5 %Lggjcm24.0-75.0Berger HospitalComment on above:Order Comment: Order Added by Discern Expert. Performed By: #### 9958614, 3103919, 1084753, 0413209, 59025884, 445081516, 3626698, 17914867, 1226933, 875238059 #### [facility] [address], [place] [address]Lrztaooofui/Leukocytes Auto (Bld) [Pure # fraction]2.7 E9/L Normal2.0-7.5FThe Jewish HospitalComment on above:Order Comment: Order Added by Discern Expert.Performed By: #### 4281046, 7276921, 2369578, 1239528, 63578133, 255752999, 1712673, 16505667, 7600492, 570466733 #### [facility] [address] [place] [address] 72[address]LPC w/ Auto Diffon 67-88-0472Svsnhneqaas distribution width (RBC) [Ratio]15.5 %High10.9-14.2FThe Jewish HospitalComment on above: Performed By: #### 8859222, 7309197, 3091468, 7128419, 91106387, 141278678, 5287479, 14164361, 2917696, 324969365 #### [facility] [address] [place] [address] 697[address]Qijifsautr (Bld) [Volume fraction]40.6 %Wcgiso06.0-46.0Berger HospitalComment on above:Performed By: #### 7039230, 1352554, 2531097, 7123067, 16150931, 443011749, 7312068, 92467199, 0941707, 148177135 #### [facility] [address], [place] [address]Lwngqpfycq (Bld) [Mass/Vol]13.6 g/jLKgcvgb11.0-16.0Berger HospitalComment on above:Performed By: #### 5831712, 0369003, 0388280, 8942425, 10933467, 776399138, 2048550, 35394415, 8009531, 895903147 #### [facility] [address], [place] [address]WKT (RBC) [Entitic mass]26.9 pgLow27.0-34.0Berger HospitalComment on above:Performed By: #### 1897455, 9410064, 5478292, 7413900, 82962274, 110081648, 0426921, 64692236, 2071499, 644197777 #### [facility] [address] [place] [address] 00388OLZU (RBC) [Mass/Vol]33.4 g/eLBscdld64.4-36.0Berger HospitalComment on above:Performed By: #### 7631466, 1839479, 2311819, 2156969, 73909598, 022713383, 4926594, 37354348, 2812956, 009250095 #### [facility] [address] [place] [address] 30432YPX (RBC) [Entitic vol]80.6 cTMdvtnf92.0-100.0Berger HospitalComment on above:Performed By: #### 4131458, 0205567, 4416626, 5032641, 85264959, 843379963, 3663880, 36684193, 5111023, 854750932 #### [facility] [address], [place] [address]Fdwflnel mean volume (Bld) [Entitic vol]6.9 fLNormal6.4-10.8 Berger HospitalComment on above:Performed By: #### 0299306, 5334506, 0982117, 6405317, 95471286, 197744999, 7643405, 12787186, 6522858, 737349160 #### [facility] [address], [place] [address]Byacmswvo (Bld) [#/Vol]312.0 E9/LXemlpu848.0-500.0Berger HospitalComment on above:Performed By: #### 2886037, 7998120, 7733035, 5305219, 52011937, 345221821, 4347186, 54367388, 3036701, 755910339 #### [facility] [address], [place] [address]JXS (Bld) [#/Vol]5.0 E12/LNormal4.3-5.9Berger HospitalComment on above:Performed By: #### 7285389, 5771027, 5891444, 3442406, 51277892, 891267944, 2388144, 89051393, 8264710, 843369839 #### [facility] [address], [place] [address]SNC corrected for nucl RBC Auto (Bld) [#/Vol]5.2 E9/LNormal 4.0-11.0Berger HospitalComment on above:Performed By: #### 5283812, 3789725, 6109271, 0317614, 33291867, 601070287, 9262636, 24165220, 8049947, 177039511 #### [facility] [address], [place] [address]KVJRXZFJQEjzxiha By: SYSTEM SYSTEM on - hydroxyvitamin D3 [Mass/Vol]46.3 ng/jPZfveha14.0 - 100.0 ng/mLFTMC Remisol Albumin [Mass/Vol]4.6 g/dLNormal3.3 - 5.0 gm/dLFTMC RemisolAlbumin/Globulin [Mass ratio]1.6 {ratio}Normal1.1 - 2.2[facility] RemisolALP [Catalytic activity/Vol]94 [iU]/wOxrqhu23 - 98 Int._Unit/LFTMC RemisolALT No additional P-5'-P [Catalytic activity/Vol]28 [iU]/dNormal6 - 46 Int._Unit/LFTMC RemisolAnion gap [Moles/Vol] 12 mmol/LNormal6 - 16 mEq/LFTMC RemisolAST [Catalytic activity/Vol]30 [iU]/d Normal5 - 43 Int._Unit/LFTMC RemisolBilirubin [Mass/Vol]0.5 mg/dLNormal0.0 - 1.1 mg/dLFTMC RemisolCalcium [Mass/Vol]9.5 mg/dLNormal8.9 - 11.1 mg/dLFT Remisol Chloride [Moles/Vol]101 mmol/IUtytta129 - 111 mmol/LFTMC RemisolCholesterol [Mass/Vol]214 mg/iQQkps374 - 200 mg/dLFTMC RemisolCholesterol in HDL [Mass/Vol] 66 mg/dLInvalid Interpretation CodeFTMC RemisolCholesterol in LDL [Mass/Vol]136 mg/dLHigh<=129mg/dLFTMC RemisolCholesterol in VLDL [Mass/Vol]21 mg/dLNormal7 - 40 mg/dLFTMC RemisolCO2 [Moles/Vol]27 mmol/XEkfqkt29 - 31 mmol/LFTMC Remisol Creatinine [Mass/Vol]0.7 mg/dLNormal0.5 - 1.3 mg/dLFTMC RemisolFerritin [Mass/Vol]27 ng/iBSalsce02 - 307 ng/mLFTMC RemisolGFR/1.73 sq M.predicted among non-blacks MDRD (S/P/Bld) [Vol rate/Area]90 mL/min/1.73 r4Vixwiw>=59mL/min/1.73 m2FT Chem SGlobulin (S) [Mass/Vol]2.9 g/dLNormal1.4 - 4.0 gm/dLFTMC Remisol Glucose [Mass/Vol]91 mg/nQHfnkfh95 - 199 mg/dLFTMC RemisolIron [Mass/Vol]63 ug/mOZizgjy01 - 153 mcg/dLOU [facility]ICAL [facility] [place] RemisolIron binding capacity [Mass/Vol]423 ug/dL Mmxe556 - 400 mcg/dLOU [facility] [place] RemisolPotassium [Moles/Vol]4.3 mmol/LNormal3.5 - 5.3 mmol/LFTMC RemisolProtein [Mass/Vol]7.5 g/dLNormal6.0 - 7.8 gm/dLOU [facility]ICAL [facility] [place] Remisol Sodium [Moles/Vol]136 mmol/PKtwgwg765 - 145 mmol/LFTMC RemisolTransferrin [Mass/Vol]302 mg/xYCabust013 - 370 mg/dLOU MEDICAL [facility] [place] RemisolTriglyceride [Mass/Vol]104 mg/dLNormal<=149mg/dLOU [facility] [place] RemisolUrea nitrogen [Mass/Vol]13 mg/dLNormal5 - 21 mg/dLOU [facility]ICAL [facility] [place] RemisolUrea nitrogen/Creatinine [Mass ratio]19 mg/ifFmirqz28 - 20[facility] [place] RemisolCHEMISTRYOrdered By: Candis Scott on 47-54-5043XyP0u (Bld) [Mass fraction]5.7 %Normal<=5.9%[facility] [place] ChemAutoSSCMPon 56-11-3473Ywmit gap [Moles/Vol]12 mmol/LNormal6-16[facility] Agnes HospitalComment on above:Performed By: #### 9620986, 5133163, 1136072, 9163438, 42161351, 579056471, 3723146, 96006165, 6704861, 249561867 #### [facility] [address], [place] [address]Lspgdfa [Mass/Vol]9.5 mg/dLNormal8.9-11.1[facility]. Agnes HospitalComment on above:Performed By: #### 5457050, 1506096, 5530324, 8445990, 46126749, 455943104, 4894862, 64191559, 4431271, 658436043 #### [facility] [address], [place] [address]Prmekynq [Moles/Vol]101 mmol/WCqzmxa392-937DoqsakBerger HospitalComment on above:Performed By: #### 9231282, 8777959, 7205779, 9090723, 40863060, 827947145, 9877897, 43703472, 5671130, 797537110 #### [facility] [address], [place] [address]FO2 [Moles/Vol]27 mmol/MLbewst53-47NmnxboBerger Hospital Comment on above:Performed By: #### 0559618, 3874271, 6374741, 4561366, 81859798, 930803975, 6694810, 55718848, 5904419, 618905151 #### [facility] [address], [place] [address]Yajsogo [Mass/Vol]91 mg/sOYxtvfn57-691RjgtfzBerger HospitalComment on above:Result Comment: If this glucose result represents a fasting glucose, interpretation should refer tothe following reference range: 55-99 mg/dLPerformed By: #### 0496495, 1703071, 7032658, 2199914, 59031084, 430503141, 8745262, 79867106, 9160604, 975129712 #### [facility] [address] [place] [address]Smtxxjghn [Moles/Vol]4.3 mmol/LNormal3.5-5.3FThe Jewish HospitalComment on above:Performed By: #### 2947334, 9689820, 8673533, 9626424, 60810745, 015279132, 1595659, 65205951, 5250892, 978874319 #### [facility] [address], [place] [address]Mklvyf [Moles/Vol]136 mmol/KUwlvsy965-406VzvzxsBerger HospitalComment on above:Performed By: #### 4179155, 1189965, 5966344, 5357631, 03985211, 292175531, 6678855, 87949168, 2091033, 865608102 #### [facility] [address], [place] [address]Zzxlhrj [Mass/Vol]4.6 g/dLNormal3.3-5.0Berger HospitalComment on above:Performed By: #### 9481918, 8986048, 0219069, 7817988, 14956068, 264420999, 1043718, 26773823, 4487829, 410000702 #### [facility] [address], [place] [address]Tjvedph/Globulin (S) [Mass conc ratio]1.7Ktbxoa9.1-2.2FThe Jewish HospitalComment on above:Performed By: #### 8693290, 6695538, 2046559, 6102159, 83453735, 932885332, 6575651, 75656123, 9846400, 185924947 #### [facility] [address] [place] [address] 27[address]BIW [Catalytic activity/Vol]94 Int._Unit/OWgoxsg57-99WyvlevBerger HospitalComment on above:Performed By: #### 2746051, 1817951, 6380453, 1178730, 21123603, 196245368, 4185007, 94434385, 2864043, 154756761 #### [facility] [address] [place] [address]EOQ No additional P-5'-P [Catalytic activity/Vol]28 Int._Unit/L Normal6-46Berger HospitalComment on above:Performed By: #### 8547238, 0635396, 1863691, 2926490, 54685169, 882481237, 3728816, 66653891, 5765255, 169421395 #### [facility] [address] [place] [address] 499[address]WAP [Catalytic activity/Vol]30 Int._Unit/LNormal5-43Berger HospitalComment on above:Performed By: #### 6452928, 7847747, 4207442, 3713809, 82519114, 824092038, 1250135, 82881730, 0540217, 471162046 #### [facility] [address], [place] [address]Akvmijepj [Mass/Vol]0.5 mg/dLNormal0.0-1.1FThe Jewish HospitalComment on above:Performed By: #### 0024605, 8372604, 2357475, 8175680, 99017492, 714312614, 9481380, 13174635, 6101293, 528131129 #### [facility] [address] [place] [address]Gytlzkblir [Mass/Vol]0.7 mg/dLNormal0.5-1.3FThe Jewish HospitalComment on above:Performed By: #### 8137373, 6988374, 6740048, 9583007, 96661308, 622861039, 8267561, 28156952, 5112051, 921971932 #### [facility] [address] [place] [address]Fcvfmrrl (S) [Mass/Vol]2.9 g/dLNormal1.4-4.0Berger HospitalComment on above:Performed By: #### 4264334, 8349635, 4420390, 6980280, 27260582, 559984551, 1044587, 41663461, 2986652, 234817040 #### [facility] [address], [place] [address]Gziuvdn [Mass/Vol]7.5 g/dLNormal6.0-7.8Berger HospitalComment on above:Performed By: #### 2019422, 0009801, 7154669, 5690869, 76913864, 535200412, 4035844, 24403679, 9324433, 183515184 #### [facility] [address], [place] [address]Tqvy nitrogen [Mass/Vol]13 mg/dLNormal5-21Berger HospitalComment on above:Performed By: #### 8457559, 5940979, 1738656, 0202094, 95164629, 083437664, 2426784, 06898061, 5534019, 590557817 #### [facility] [address], [place] [address]Umlk nitrogen/Creatinine [Mass ratio]19 No IdntbNhvuqp30-79 [facility] HospitalComment on above:Performed By: #### 5665356, 8611739, 9951363, 0774945, 84252863, 020802576, 2148938, 78998184, 0020193, 777988124 #### [facility] [address], [place] [address]Byinpjv for Treatmenton 90-53-6697Nhbzhin for Treatment [id number]#1.00CD:127NormalBerger HospitalFerritinon 07-78-8075Lhnxqxtv [Mass/Vol]27 ng/fEHstdaj93-761WlpwzpBerger HospitalComment on above:Result Comment: NORMALS MEN <30 YRS 16-132 ng/mL MEN >30 YRS 8-338 ng/mL WOMEN (PREMEN) 6-104 ng/mL WOMEN (POSTMEN) 12-210 ng/mLPerformed By: #### 3991347, 5722071, 9558228, 8342891, 73773398, 518804809, 1607780, 63725314, 8879065, 119781738 #### [facility] [address], [place] [address]ZDIPSHKEHXSrtclnz By: SYSTEM SYSTEM on 34-05-5492Qgdyntpvu/100 WBC (Bld)1.1 %Normal0.0 - 2.0 %[facility] HemeAutoSSBasophils/Leukocytes Auto (Bld) [Pure # fraction]0.1 E9/LNormal0.0 - 0.2 E9/LFTMC HemeAutoSSEosinophils/100 WBC (Bld)3.4 %Normal0.0 - 8.0 %[facility] HemeAutoSSEosinophils/Leukocytes Auto (Bld) [Pure # fraction]0.2 E9/LNormal0.0 - 0.5 E9/LFTMC HemeAutoSSLymphocytes/100 WBC (Bld)31.1 %Vpecrw74.0 - 50.0 %[facility] HemeAutoSSLymphocytes/Leukocytes Auto (Bld) [Pure # fraction]1.6 E9/LNormal1.0 - 4.0 E9/LFT[facility] HemeAutoSSMonocytes/100 WBC (Bld)11.9 %Normal4.0 - 14.0 %[facility] HemeAutoSSMonocytes/Leukocytes Auto (Bld) [Pure # fraction]0.6 E9/LNormal0.2 - 1.0 E9/LFTMC HemeAutoSSNeutrophils/100 WBC (Bld)52.5 %Kqmpdu29.0 - 75.0 %[facility] HemeAutoSSNeutrophils/Leukocytes Auto (Bld) [Pure # fraction]2.7 E9/LNormal2.0 - 7.5 E9/LFTMC HemeAutoSSHEMATOLOGYOrdered By: Sumi Kelley on 17-51-5988Llaqvzzgnln distribution width (RBC) [Ratio] 15.5 %High10.9 - 14.2 %[facility] HemeAutoSSHematocrit (Bld) [Volume fraction]40.6 % Mpyokf50.0 - 46.0 %[facility] HemeAutoSSHemoglobin (Bld) [Mass/Vol]13.6 g/cPJmlvtg81.0 - 16.0 gm/dLFTMC HemeAutoSSMCH (RBC) [Entitic mass]26.9 pgLow27.0 - 34.0 pgFTMC HemeAutoSSMCHC (RBC) [Mass/Vol]33.4 g/nNAymcbt40.4 - 36.0 gm/dLFTMC HemeAutoSS MCV (RBC) [Entitic vol]80.6 eNGekxiz87.0 - 100.0 fLFTMC HemeAutoSSPlatelet mean volume (Bld) [Entitic vol]6.9 fLNormal6.4 - 10.8 fLFTMC HemeAutoSSPlatelets (Bld) [#/Vol]312.0 E9/AQixbmf847.0 - 500.0 E9/LFT[facility] HemeAutoSSRBC (Bld) [#/Vol] 5.0 E12/LNormal4.3 - 5.9 E12/LFT[facility] HemeAutoSSWBC corrected for nucl RBC Auto (Bld) [#/Vol]5.2 E9/LNormal4.0 - 11.0 E9/LFT[facility] MagbBfkrKYRrxL3blp 10-22-2022 HbA1c (Bld) [Mass fraction]5.7 %Normal<=5.9Berger HospitalComment on above:Performed By: #### 8802247, 0947959, 1057648, 3222021, 46038661, 166193133, 7541734, 88104626, 3699645, 706384793 #### [facility] [address], [place] [address]Qzmubl 05-44-9452Jxrn [Mass/Vol]63 microgram/kXYtyroz98-128 [facility] HospitalComment on above:Performed By: #### 0542495, 2705951, 6762461, 8840057, 69427930, 197980147, 3877187, 82940139, 2533209, 287374746 #### [facility] [address], [place] [address]Fdagn Panelon 33-85-5094Qhnfbtzcdkr [Mass/Vol]214 mg/dLHigh 120-200Berger HospitalComment on above:Performed By: #### 9817098, 7282112, 9284729, 7637972, 05429182, 769250022, 0687796, 26405855, 1838789, 378007860 #### [facility] [address], [place] [address]Frligpuukgp in HDL [Mass/Vol]66 mg/dLInvalid Interpretation CodeBerger HospitalComment on above:Result Comment: HDL > or equal to 60 mg/dL: Low cardiovascular risk HDL < 40 mg/dL : High cardiovascular riskPerformed By: #### 8786926, 5270273, 1331554, 1942629, 50932069, 505202036, 4630831, 45190091, 2266326, 204101602 #### [facility] [address], [place] [address]Cxzhpiwfiit in LDL [Mass/Vol]136 mg/dLHigh<=129Berger HospitalComment on above:Performed By: #### 9584306, 4313910, 6708664, 9598247, 85362223, 133503074, 7789051, 26059078, 0835242, 623545864 #### [facility] [address], [place] [address]Oyroolxdgrc in VLDL [Mass/Vol]21 mg/dLNormal7-40Berger HospitalComment on above:Performed By: #### 0624703, 2818696, 0983743, 7396002, 29185507, 720507209, 3004650, 44398707, 8377606, 653064773 #### [facility] [address], [place] [address]Blyneeiprjxj [Mass/Vol]104 mg/dLNormal<=149Berger HospitalComment on above:Performed By: #### 2096462, 9242268, 0844211, 4239032, 40959388, 509032220, 0567550, 98889213, 8252842, 948317378 #### [facility] [address], [place] [address]Lfrtqzvrq Orderon 58-41-8001Kuejclptt Order [id number]#1.00CD:127NormalBerger HospitalTIBC Calculatedon 08-45-8101Blde binding capacity [Mass/Vol]423 microgram/fNLegf686-546CvmwbwBerger HospitalComment on above:Performed By: #### 6347985, 2151674, 7947819, 4311851, 28276796, 033387264, 9191996, 01468167, 8012449, 828075951 #### [facility] [address], [place] [address]Ohjzidxvuwm [Mass/Vol]302 mg/rJSuuhjk940-332MvcxnhBerger HospitalComment on above:Performed By: #### 9881976, 4664548, 4064271, 1603748, 03113881, 630820230, 1392353, 23947416, 1513590, 519337806 #### [facility] [address], [place] [address]Qyecgho D 25 Hydroxyon 617405-pfqvzejswerkqb D3 [Mass/Vol]46.3 ng/qFNlmqde10.0-100.0Berger HospitalComment on above: Result Comment: Vitamin D deficiency has been defined as a level of serum 25-OH vitamin D less than 20 ng/mL (1,2) by the [employer] of [employer] and an Endocrine Society practice guideline. The Endocrine Society further defined vitamin D insufficiency as a level between 21 and 29 ng/mL (2). 1. IOM ([place] of [employer]). 2010. Dietary reference intakes for calcium and D. [place]: The National Academies Press. 2. Sarah MF, Ligia NC, Skylar BALDERAS, et al. Evaluation, treatment, and prevention of vitamin D deficiency: an Endocrine Society clinical practice guideline. JCEM. 2010; 96 (7):1911-30.Performed By: #### 9410118, 3005585, 8973260, 7306047, 84384653, 657582458, 2226228, 43164351, 3469172, 776991843 #### [facility] [address], [place] [address]iQHNdf 00-54-9573WWX/1.73 sq M.predicted among non-blacks MDRD (S/P/Bld) [Vol rate/Area]90 mL/min/1.73 o4Wwkaug>=59[facility] Comment on above:Order Comment: Order added by Discern Expert.Result Comment: Chronic kidney disease could be indicated at eGFR's of less than 60 mL/min/1.73m2. Kidney failure is indicated at less than 15 mL/min/1.73m2. Performed By: #### 3831614, 6179194, 9975056, 6063922, 35723820, 055483340, 5760929, 23521067, 3984346, 739843367 #### [facility] [address], [place] [address]Qbhhyz Visit (Cardiology)on 72-54-5092Hffbvv-up visit Diagnoses/Problems Assessed Supraventricular tachycardia (427.89) (I47.1) Essential hypertension (401.9) (I10) Mixed hyperlipidemia (272.2) (E78.2) Class 1 obesity with body mass index (BMI) of 34.0 to 34.9 in adult (278.00,V85.34) (E66.9,Z68.34) Never smoker Rheumatoid arthritis (714.0) (M06.9) Orders Class 1 obesity with body mass index (BMI) of 34.0 to 34.9 in adult Healthy Weight Tips; Status:Complete - Retrospective Authorization; Done: [id number] Some eating tips that can help you lose weight.; Status:Complete - Retrospective Authorization; Done: [id number] Mixed hyperlipidemia Renew: Simvastatin 20 MG Oral Tablet; TAKE 1 TABLET BY MOUTH EVERY DAY Supraventricular tachycardia Stop: Aspirin EC 81 MG TBEC Patient Instructions Please bring all medicines, vitamins, and herbal supplements with you when you come to the office. Prescriptions will not be filled unless you are compliant with your follow up appointments or have a follow up appointment scheduled as per instruction of your physician. Refills should be requested at the time of your visit. Stop aspirin Follow up in 1 year. Chief Complaint SUMA SCOTT is being seen for an annual follow-up of. Patient is in the office for follow-up for the problems noted below. She has no indication of recurrent SVTs and has no dyspnea or chest pain. Her pressure is under excellent control. She follows with her PCP and also with rheumatology in [place] and has been on hydroxychloroquine and stable. 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 Her weight is 11 pounds above last year's visit. This is due to inactivity is. The patient has stress relatedto her 's illness Noah who is a patient of mine with multiple medical problems. She was noted to be taking aspirin which I do not find indication for therefore it was discontinued. I reviewedwith her her last labs from April 2022 which are excellent. Her examination is only remarkable for class I obesity. ASSESSMENT AND PLAN: 1. Hypertension, under control, currently on amlodipine and metoprolol, no side effect of medications. 2. Hyperlipidemia, on statin therapy with simvastatin. Lipid profile done earlier this year was excellent 3. History of supraventricular tachycardia , presently managed on beta phil therapy. No recurrences 4. Class I obesity. Encouraged the patient to continue to bring her weight under control with diet and exercise. 5. Rheumatoid arthritis on hydroxychloroquine stable Deb Zamora MD, [facility] Surgical History Problems History of Cholecystectomy History of Complete colonoscopy History of Hammer toe surgery History of Hysterectomy History of Knee replacement History of Shoulder surgery Current Meds Medication NameInstruction amLODIPine Besylate 5 MG Oral TabletTAKE 1 TABLET DAILY. Aspirin EC 81 MG TBECTAKE 1 TABLET DAILY. Citracal + D TABSTake 1 tablet daily clonazePAM 0.5 MG Oral TabletTAKE 1 TABLET AT BEDTIME NEEDED. Co Q 10 100 MG Oral CapsuleTAKE 1 CAPSULE Daily Cymbalta 30 MG Oral Capsule Delayed Release ParticlesTAKE 1 CAPSULE Daily Gabapentin 100 MG Oral CapsuleTAKE 1 CAPSULE IN AM 2 TABLETS IN AFTERNOON 3 TABLETS IN PM Hydroxychloroquine Sulfate 200 MG Oral TabletTAKE 1 TABLET TWICE DAILY WITH FOOD. Indomethacin 25 MG Oral CapsuleTAKE 1 CAPSULE Daily Magnesium 400 MG Oral TabletTake 1 tablet daily Metoprolol Tartrate 50 MG Oral TabletTAKE 1 TABLET TWICE DAILY. Omeprazole 40 MG Oral Capsule Delayed ReleaseTAKE 1 CAPSULE TWICE DAILY. Simvastatin 20 MG Oral TabletTAKE 1 TABLET BY MOUTH EVERY DAY Sodium Chloride 1 GM Oral TabletTake 1 tablet twice daily Vitamin B Complex Oral CapsuleTAKE 1 CAPSULE Daily Vitamin C 100 MG Oral TabletTAKE 1 TABLET DAILY DIRECTED. Vitamin D 1000 UNIT CAPSTAKE 1 CAPSULE Daily Vitamin K TABSTAKE 1 TABLET DAILY DIRECTED. Zinc 50 MG Oral TabletTAKE 1 TABLET DAILY. Allergies Medication No Known Drug Allergies Recorded By: Marnie Pacheco; 07/30/2021 8:33:42 AM Social History Problems Never smoker No alcohol use No caffeine use No illicit drug use Review of Systems Constitutional: not feeling tired. Cardiovascular: no intermittent leg claudication and as noted in HPI. Respiratory: no cough and no shortness of breath. Gastrointestinal: no change in bowel habits and no blood in stools. Integumentary: no skin rashes. Neurological: no seizures and no frequent falls. All other systems have been reviewed and are negative for complaint. Vitals Vital Signs Recorded: 23Sep2022 08:33AM Heart Rate78, L Radial Kjcafyin740, LUE, Sitting Mcggpiqsu62, LUE, Sitting Height5 ft 1 in Aknjmf031 lb BMI Lrhtaddbun24.2 kg/m2 BSA Calculated1.81 Tobacco Useb) No PHQ-2 #1. Over the last 2 weeks have you felt down, depressed or hopeless? (If yes, answer PHQ-9 below)No PHQ-2 #2. Over the last 2 weeks have you felt little interest or pleasu (more content not included)...NormalUH TouchworksTobacco Screening.on 51-51-7882Jckds depression screening assessmentNoProvidence Holy [facility] Hospital [employer] DO Work Phone: Fall risk assessmenta) No falls within the last year [facility] CenterAm[employer] Software DO Work Phone: Tobacco use status CPHSb) NoMForks Community Hospital EnjectY[facility] [employer] DO Work Phone: Albumin [Mass/volume] in Serum or PlasmaOrdered By: Mayco Velasquez on 65-16-7348Dbgapdq [Mass/Vol]4.4 g/dL3.2-5.5FMercy Health St. Elizabeth Boardman HospitalAutomated erythrocytes count in urine sediment (number/area) Ordered By: Mayco Velasquez on 17-37-2147HKV Auto (Urine sed) [#/Area]0-1 [HPF]0-4 [facility] Medical CenterAutomated leukocytes count in urine sediment (number/area)Ordered By: Mayco Velasquez on 65-72-9044KJV Auto (Urine sed) [#/Area] 0-1 [HPF]0-4FMercy Health St. Elizabeth Boardman HospitalBasophils Auto (Bld) [#/Vol]Ordered By: Mayco Velasquez on 12-80-0096Eidygecgs (Bld) [#/Vol]0.0 10*3/uL0.0-0.2 [facility] CenterBasophils/100 WBC Auto (Bld)Ordered By: Mayco Velasquez on 75-85-8488Auuhucwbw/100 WBC (Bld)0.7 %.[facility] CenterBilirubin Test strip Ql (U)Ordered By: Mayco Velasquez on 68-00-9545Spwbyndol Ql (U)NegativeNegativeAdena Pike Medical CenterCT biopsyOrdered By: Mayco Velasquez on 85-91-7939Vdjoafjnlka [Mass/Vol]300 mg/xS740-899QieukeybgAdena Pike Medical CenterCholesterol [Mass/volume] in Serum or PlasmaOrdered By: Mayco Velasquez on 27-37-3020Jcttfwxynjq [Mass/Vol]121 mg/gR804-500AcwumuyrjAdena Pike Medical CenterComment on above:Chol less than 200 mg/dl low riskChol 201-239 mg/dl borderline riskChol 240 mg/dl and greater high riskCholesterol in LDL Calc [Mass/Vol]Ordered By: Mayco Velasquez on 05-31-2812Xoluhlecprl in LDL [Mass/Vol]49 mg/dL0-100[facility] CenterComment on above:LDL ATP III CLASSIFICATIONLDL less than 100 mg/dL OptimalLDL 100-129 mg/dL Near or above iaheilnMGC908-964 mg/dL Borderline highLDL 160-189 mg/dL HighLDL greater than 189 mg/dL Very highCholesterol in VLDL Calc [Mass/Vol]Ordered By: Mayco Velasquez on 78-06-9005Nevuthgcmat in VLDL [Mass/Vol]21 mg/dLAdena Pike Medical CenterColor Auto (U)Ordered By: Mayco Velasquez on 05-18-9848Zmsby (U) YellowYellowAdena Pike Medical CenterCreatinine and Glomerular filtration rate.predicted panel (S/P/Bld)Ordered By: Mayco Velasquez on 04-30-2022 Creatinine [Mass/Vol]0.78 mg/dL0.44-1.03[facility] Eosinophils Auto (Bld) [#/Vol]Ordered By: Mayco Velasquez on 31-22-8813Pqpztydxrtj (Bld) [#/Vol]0.2 10*3/uL0.0-0.45[facility] Medical CenterEosinophils/100 WBC Auto (Bld)Ordered By: Mayco Velasquez on 19-80-6626Oqrbcvorexd/100 WBC (Bld) 4.9 %.[facility] CenterErythrocyte distribution width Auto (RBC) [Ratio]Ordered By: Mayco Velasquez on 25-84-6994Wsqvxkkbrpc distribution width (RBC) [Ratio]13.8 %11.9-15.3FMercy Health St. Elizabeth Boardman HospitalEstimated glomerular filtration rate (GFR) non- AmericanOrdered By: Mayco Velasquez on 78-12-4690ISN/1.73 sq M.predicted among non-blacks MDRD (S/P/Bld) [Vol rate/Area]> 60 mL/MinAdena Pike Medical CenterFerritin [Mass/volume] in Serum or PlasmaOrdered By: Mayco Velasquez on 59-71-3345Aasobcyl [Mass/Vol]21.8 ng/eR29-590.8[facility] Medical CenterGlobulin Calc (S) [Mass/Vol] Ordered By: Mayco Velasquez on 51-11-5123Yywmuede (S) [Mass/Vol]2.1 g/dLAdena Pike Medical CenterHematocrit Auto (Bld) [Volume fraction]Ordered By: Mayco Velasquez on 16-55-7235Ovdqipmeod (Bld) [Volume fraction]40.1 %34.0-46.4FMercy Health St. Elizabeth Boardman HospitalHemoglobin [Mass/volume] in BloodOrdered By: Mayco Velasquez on 77-65-5496Azscrsnntr (Bld) [Mass/Vol]13.1 g/dL11.8-15.4FMercy Health St. Elizabeth Boardman HospitalIron [Mass/volume] in Serum or PlasmaOrdered By: Mayco Velasquez on 10-54-6619Tfns [Mass/Vol]65 ug/dB37-081IveqzdcxbAdena Pike Medical CenterIron binding capacity [Mass/volume] in Serum or PlasmaOrdered By: Mayco Velasquez on 89-50-1179Ynpr binding capacity [Mass/Vol]420 ug/wG054-948GazyepoytAdena Pike Medical CenterIron saturation [Mass Fraction] in Serum or PlasmaOrdered By: Mayco Velasquez on 39-52-0950Iigx saturation [Mass fraction]15.5 %20-50[facility] CenterKetones Auto test strip (U) [Mass/Vol]Ordered By: Mayco Velasquez on 61-89-4686Ivhmwjd (U) [Mass/Vol]NegativeNegativeAdena Pike Medical CenterLaboratory - UrinalysisOrdered By: Mayco Velasquez on 04-30-2022 Hyaline casts LM Ql (Urine sed)0-8 [LPF]0-8[facility] Leukocytes [#/volume] corrected for nucleated erythrocytes in Blood by Automated counOrdered By: Mayco Velasquez on 18-76-3840CEX corrected for nucl RBC Auto (Bld) [#/Vol]4.8 10*3/uL3.8-11.6FMercy Health St. Elizabeth Boardman HospitalLymphocytes Auto (Bld) [#/Vol]Ordered By: Mayco Velasquez on 80-52-2456Kbxdtfmdhee (Bld) [#/Vol]1.8 10*3/uL1.00-4.8[facility] CenterLymphocytes/100 WBC Auto (Bld) Ordered By: Mayco Velasquez on 04-31-0438Pforjjvpqtw/100 WBC (Bld)37.7 %.[facility] CenterH Auto (RBC) [Entitic mass]Ordered By: Mayco Velasquez on 11-44-2587NES (RBC) [Entitic mass]26.6 pg24.7-34.3FMercy Health St. Elizabeth Boardman HospitalMCHC Auto (RBC) [Mass/Vol]Ordered By: Mayco Velasquez on 05-22-8891CAVO (RBC) [Mass/Vol]32.6 g/dL32.0-35.0[facility] CenterMCV Auto (RBC) [Entitic vol]Ordered By: Mayco Velasquez on 80-99-7818RKW (RBC) [Entitic vol]81.5 iD75-419ImfvfdfarAdena Pike Medical CenterMonocytes Auto (Bld) [#/Vol]Ordered By: Mayco Velasquez on 42-05-5330Udocuuubf (Bld) [#/Vol]0.7 10*3/uL0.0-0.8[facility] CenterMonocytes/100 WBC Auto (Bld)Ordered By: Mayco Velasquez on 83-87-2289Zzrutikcq/100 WBC (Bld)15.1 %.[facility] Neutrophils Auto (Bld) [#/Vol]Ordered By: Mayco Velasquez on 39-65-6081Xllwxqyxess (Bld) [#/Vol]2.0 10*3/uL1.8-7.7FMercy Health St. Elizabeth Boardman HospitalNeutrophils/100 WBC Auto (Bld)Ordered By: Mayco Velasquez on 99-90-9369Xbxmilhhnug/100 WBC (Bld) 41.6 %.[facility] CenterNitrite Test strip Ql (U)Ordered By: Mayco Velasquez on 29-87-7839Frzzltf Ql (U)NegativeNegativeAdena Pike Medical CenterNo Panel InformationOrdered By: Mayco Velasquez on 19-36-070925- Hydroxy Vitamin D Total34.4 ng/iS94-735KyisizjcfAdena Pike Medical CenterComment on above:VITAMIN D STATUS 25(OH)VITAMIN D RANGE (ng/mL) Deficient <20 Insufficient 20 to <66Cmnlmtdxqg86 to 100Reference: Sarah MF,Ligia LOUIS, Skylar BALDERAS, et al. Evaluation,treatment, and prevention of vitamin D deficiency; an Endocrine Society clinical practice guideline. JCEM. 2010; 96 (7):1911-30.Estimated GFR ()> 60 mL/MinAdena Pike Medical CenterComment on above:GFR estimated reference range: According to KDOQI guidelines, <60 ml/min/1.73m2 is sufficient todiagnose a patient with chronic kidney disease.Pharmacy Creatinine Clearance (ChemN/AFMercy Health St. Elizabeth Boardman HospitalNucleated erythrocytes [Presence] in Blood by Automated countOrdered By: Mayco Velasquez on 36-39-3596Bpbabqcug RBC Auto Ql (Bld)0.1 /100{WBC}0-0.5FMercy Health St. Elizabeth Boardman HospitalPlatelet mean volume Auto (Bld) [Entitic vol]Ordered By: Mayco Velasquez on 91-60-0141Jawjexqs mean volume (Bld) [Entitic vol]7.6 fL6.3-10.7 [facility] CenterPlatelets Auto (Bld) [#/Vol]Ordered By: Mayco Velasquez on 31-70-2495Vnjhtgpet (Bld) [#/Vol]284 10*3/qE996-549QzqspqcezAdena Pike Medical CenterProtein Auto test strip (U) [Mass/Vol]Ordered By: Mayco Velasquez on 96-67-3738Wrezjbi (U) [Mass/Vol]NegativeNegativeAdena Pike Medical CenterProtein [Mass/volume] in Serum or PlasmaOrdered By: Mayco Velasquez on 69-90-0473Etlxgsh [Mass/Vol]6.5 g/dL6.1-7.9[facility] Medical CenterRBC Auto (Bld) [#/Vol]Ordered By: Mayco Velasquez on 96-73-6464IUS (Bld) [#/Vol]4.92 10*6/uL3.60-5.00Wilson Memorial Hospitalerum or plasma alanine aminotransferase measurement without P-5'-P (enzymatic activiOrdered By: Mayco Velasquez on 80-62-1079MZF No additional P-5'-P [Catalytic activity/Vol]20 U/L10-60 [facility] Hospitalerum or plasma albumin/globulin mass ratio Ordered By: Mayco Velasquez on 96-92-7639Paftmgs/Globulin [Mass ratio]2.1 {ratio} [facility] Hospitalerum or plasma alkaline phosphatase measurement (enzymatic activity/volume)Ordered By: Mayco Velasquez on 47-57-8613IFD [Catalytic activity/Vol]79 U/Z83-31AkfaosnlgWilson Memorial Hospitalerum or plasma anion gap determinationOrdered By: Mayco Velasquez on 04-29-3038Ynasg gap [Moles/Vol]8.6 mmol/L6.0-15.0[facility] Hospitalerum or plasma aspartate aminotransferase measurement (enzymatic activity/volume)Ordered By: Mayco Velasquez on 74-23-3910MND [Catalytic activity/Vol]23 U/Y57-27DvybtsvrdWilson Memorial Hospitalerum or plasma calcium measurement (mass/volume)Ordered By: Mayco Velasquez on 57-74-6887Ltvuuva [Mass/Vol]9.4 mg/dL8.2-10.2FKnox Community Hospitalerum or plasma chloride measurement (moles/volume) Ordered By: Mayco Velasquez on 00-16-0723Xbpeiuak [Moles/Vol]100 mmol/L95-114 [facility] Hospitalerum or plasma glucose measurement (mass/volume)Ordered By: Mayco Velasquez on 07-86-6453Cuqnyda [Mass/Vol]85 mg/dL 70-100[facility] Medical CenterComment on above:ADA recommended reference rangeRandom Glucose Reference Range is dependent on time and content of last meal. Glucose of more than 200 mg/dL in a nonstressed, ambulatory subject supports the diagnosisof Diabetes Mellitus.Serum or plasma high density lipoprotein (HDL) cholesterol measurementOrdered By: Mayco Velasquez on 04-30-2022 Cholesterol in HDL [Mass/Vol]51 mg/dU34-79VscxdmqyvAdena Pike Medical Center Comment on above:HDL CHOL ATP-III CLASSIFICATION Cardiovascular RiskHDL > or equal to 60 mg/dL LOWHDL < 40 mg/dL HIGHSerum or plasma potassium measurement (moles/volume)Ordered By: Mayco Velasquez on 38-59-2491Ezzuvlikd [Moles/Vol]4.0 mmol/L3.5-5.1FKnox Community Hospitalerum or plasma sodium measurement (moles/volume)Ordered By: Mayco Velasquez on 26-52-6203Lszbdz [Moles/Vol]133 mmol/W208-403UpszkmualWilson Memorial Hospitalerum or plasma total bilirubin measurement (mass/volume)Ordered By: Mayco Velasquez on 40-51-2017Mxigfnvol [Mass/Vol]0.4 mg/dL0.3-1.2FKnox Community Hospitalerum or plasma total carbon dioxide measurement (moles/volume)Ordered By: Mayco Velasquez on 04-30-2022 CO2 [Moles/Vol]28.4 mmol/L22.0-30.0[facility] Hospitalerum or plasma total cholesterol/high density lipoprotein (HDL) cholesterol mass rat Ordered By: Mayco Velasquez on 59-30-1847Gogtkdnmxyr.total/Cholesterol in HDL [Mass ratio]2.4 {ratio}<5.0[facility] Hospitalerum or plasma urea nitrogen measurement (mass/volume)Ordered By: Mayco Velasquez on 62-17-4767Puhq nitrogen [Mass/Vol]9 mg/dL9-23Wilson Memorial Hospitalpecific gravity Auto test strip (U) [Rel density]Ordered By: Mayco Velasquez on 83-12-0288Dlbwzfuh gravity (U) [Rel density]1.0131.001-1.030[facility] Squamous epithelial cells detection in urine sediment by light microscopyOrdered By: Mayco Velasquez on 97-92-9919Iovvqgphkj cells.squamous LM Ql (Urine sed)0-1 [HPF]0-2FMercy Health St. Elizabeth Boardman HospitalTSH DL <= 0.005 mIU/L QnOrdered By: Mayco Velasquez on 96-64-5885DQZ Qn2.43 m[IU]/L0.45-5.33[facility] Medical CenterTriglyceride [Mass/volume] in Serum or PlasmaOrdered By: Mayco Velasquez on 16-21-1489Dzksxxymhmfj [Mass/Vol]106 mg/tJ37-229PihrnxpxdAdena Pike Medical CenterComment on above:TRIG ATP III CLASSIFICATIONTRIG less than 150 mg/dL NormalTRIG 150-199 mg/dL Borderline highTRIG 200-500 mg/dL High TRIG greater than 500 mg/dL Very highStandard traceable to the Center for Disease Conrtrol and Prevention (CDC) test method.Urine bacteria detection by automated method Ordered By: Mayco Velasquez on 38-97-3101Daqnllhx Auto Ql (U)None seenNone Seen [facility] CenterUrine clarity by refractometry automatedOrdered By: Mayco Velasquez on 68-75-6539Hmvmazh Refractometry automated (U)ClearClear [facility] CenterUrine glucose measurement by automated test strip (mass/volume)Ordered By: Mayco Velasquez on 58-09-4903Lorfuwq Auto test strip (U) [Mass/Vol]Normal mg/dLNoOhioHealth Dublin Methodist HospitalUrine hemoglobin detection by automated test stripOrdered By: Mayco Velasquez on 01-04-5449Ttjxcviefu Auto test strip Ql (U)NegativeNegativeAdena Pike Medical CenterUrine leukocyte esterase detection by automated test stripOrdered By: Mayco Velasquez on 17-06-1679Fbxbhjjke esterase Auto test strip Ql (U)1+ NegativeAdena Pike Medical CenterUrobilinogen Auto test strip (U) [Mass/Vol]Ordered By: Mayco Velasquez on 87-17-0263Hbcjdlpteujs (U) [Mass/Vol] Normal mg/dLNormSelect Medical TriHealth Rehabilitation HospitalWBC Auto (Bld) [#/Vol]Ordered By: Mayco Velasquez on 79-18-5477MHA (Bld) [#/Vol]4.8 10*3/uL3.8-11.6FMercy Health St. Elizabeth Boardman HospitalpH Auto test strip (U)Ordered By: Mayco Velasquez on 48-21-9792yD (U)6.5 [pH]5.0-9.0[facility] CenterCoding Summary. on 75-73-7618Ovfwik Summary. CD:[id number]+PGhlYWQ+MA5SCWSbC35tiSAaiL3JJ8hBMV3OETZTHMILHD3MKS1bp VD9ILwoM2WkmmLu [file] YXBz (more content not included)...NormalBerger HospitalAuto Diffon 06-39-7048Kpkhsxlbl/100 WBC (Bld)1.7 %Normal0.0-2.0[facility] Comment on above:Order Comment: Order Added by Discern Expert.Performed By: #### [id number], 6838378, 4365446, 0823477, 71448847, 118187952, 9795110, 10657038, 5656140, 813266084 #### [facility] [address], [place] [address]Xkzkomwco/Leukocytes Auto (Bld) [Pure # fraction]0.1 E9/LNormal 0.0-0.2FThe Jewish HospitalComment on above:Order Comment: Order Added by Discern Expert.Performed By: #### 4181647, 2591896, 3166475, 8493408, 02974825, 339069978, 6386686, 00318118, 2354134, 978655426 #### [facility] [address], [place] [address]Rmyqjawkxvr/100 WBC (Bld)3.4 %Normal0.0-8.0Berger HospitalComment on above:Order Comment: Order Added by Discern Expert.Performed By: #### 1829387, 9091907, 8881608, 9414947, 24754615, 699755962, 4735316, 60699795, 2279210, 792298057 #### [facility] [address], [place] [address]Nkdurkojguh/Leukocytes Auto (Bld) [Pure # fraction]0.2 E9/L Normal0.0-0.5FThe Jewish HospitalComment on above:Order Comment: Order Added by Discern Expert.Performed By: #### 3315641, 3999598, 9463074, 0887503, 80505347, 829829545, 6362124, 05717247, 0918077, 891094411 #### [facility] [address], [place] [address]Absbxcvocof/100 WBC (Bld)34.6 %Gsgdpg73.0-50.0Berger HospitalComment on above:Order Comment: Order Added by Discern Expert. Performed By: #### 5958229, 6024037, 4246915, 4457678, 04514234, 534185937, 2649761, 76357628, 9899743, 046322640 #### [facility] [address] [place] [address]Llslioixmcv/Leukocytes Auto (Bld) [Pure # fraction]1.8 E9/L Normal1.0-4.0Berger HospitalComment on above:Order Comment: Order Added by Discern Expert.Performed By: #### 1979955, 9907901, 1185902, 2276132, 88463377, 834268737, 8773331, 03635728, 1185783, 143898040 #### [facility] [address], [place] [address]Vsgdyvnoh/100 WBC (Bld)13.1 %Normal4.0-14.0Berger HospitalComment on above:Order Comment: Order Added by Discern Expert.Performed By: #### 9922003, 4591418, 9623877, 4212887, 31934204, 241695208, 5467452, 22599746, 7301607, 845824381 #### [facility] [address], [place] [address]Ggtppngvb/Leukocytes Auto (Bld) [Pure # fraction]0.7 E9/LNormal 0.2-1.0Berger HospitalComment on above:Order Comment: Order Added by Discern Expert.Performed By: #### 5148590, 5942260, 9567903, 8923268, 04965122, 118330614, 1613426, 47551271, 3513279, 876256919 #### [facility] [address], [place] [address]Bitzxgffhim/100 WBC (Bld)47.2 %Xgeeor78.0-75.0Berger HospitalComment on above:Order Comment: Order Added by Discern Expert. Performed By: #### 2698135, 5899560, 3474506, 5282652, 82676802, 210727284, 3811564, 59562739, 1948582, 318255352 #### [facility] [address] [place] [address]Mjmrtfbxitc/Leukocytes Auto (Bld) [Pure # fraction]2.5 E9/L Normal2.0-7.5FThe Jewish HospitalComment on above:Order Comment: Order Added by Discern Expert.Performed By: #### 7971772, 0352709, 2529851, 0068536, 55759805, 462324611, 0656971, 22120672, 4301817, 858725886 #### [facility] [address], [place] [address]BIO w/ Auto Diffon 11-67-7548Whqfvkupzik distribution width (RBC) [Ratio]15.2 %High10.9-14.2FThe Jewish HospitalComment on above: Performed By: #### 2482323, 9557816, 7880582, 9700138, 09589564, 884917817, 4171257, 29660006, 8118297, 059131668 #### [facility] [address], [place] [address]Jwrzgwjyzm (Bld) [Volume fraction]40.4 %Fanivw53.0-46.0Berger HospitalComment on above:Performed By: #### 7708401, 3996358, 2517963, 2661462, 57800291, 467845986, 1103520, 12637873, 7338144, 690193111 #### [facility] [address], [place] [address]Ufngdfaxll (Bld) [Mass/Vol]13.8 g/uDCzkayb49.0-16.0Berger HospitalComment on above:Performed By: #### 5117047, 5958945, 9434108, 8420377, 00978872, 173659244, 1339812, 41069536, 1376908, 766790527 #### [facility] [address] [place] [address]XRM (RBC) [Entitic mass]26.9 pgLow27.0-34.0Berger HospitalComment on above:Performed By: #### 3233993, 9015602, 9423897, 5531620, 13171339, 559832524, 9338201, 80875194, 8580088, 436777942 #### [facility] [address] [place] [address]IRAW (RBC) [Mass/Vol]34.2 g/fANrrddl82.4-36.0Berger HospitalComment on above:Performed By: #### 0115002, 0375084, 2255536, 4300493, 52292891, 046017107, 7774686, 95785479, 2199670, 081424410 #### [facility] [address] [place] [address]ESK (RBC) [Entitic vol]78.8 fLLow80.0-100.0Berger HospitalComment on above:Performed By: #### 4458742, 1872939, 3453043, 2546028, 68250449, 672617469, 6151786, 43210992, 8359875, 029989113 #### [facility] [address], [place] [address]Snegrrzp mean volume (Bld) [Entitic vol]7.2 fLNormal6.4-10.8 Berger HospitalComment on above:Performed By: #### 9088028, 1466183, 4082680, 7798594, 53991272, 742071399, 3724070, 25532617, 3445704, 711249003 #### [facility] [address], [place] [address]Dlxlhdibg (Bld) [#/Vol]355.0 E9/GDlbtmc288.0-500.0Berger HospitalComment on above:Performed By: #### 1447925, 8089334, 2182979, 8314027, 02577964, 615090983, 3691514, 64184186, 0090558, 192179995 #### [facility] [address] [place] [address]FPL (Bld) [#/Vol]5.1 E12/LNormal4.3-5.9Berger HospitalComment on above:Performed By: #### 5084138, 7972695, 7320633, 5550655, 31535416, 770814779, 5176365, 48480408, 1629240, 107050362 #### [facility] [address] [place] [address]VZO corrected for nucl RBC Auto (Bld) [#/Vol]5.3 E9/LNormal 4.0-11.0Berger HospitalComment on above:Performed By: #### 6523361, 9969525, 4839620, 8666493, 82320855, 879321943, 5525696, 28805089, 8846933, 233027627 #### [facility] [address] [place] [address]HRUTIGQCKKdefvzc By: SYSTEM SYSTEM on 10-12-2195Cuggsyhl [Mass/Vol]23 ng/lGPgnbug62 - 307 ng/mLFTMC RemisolIron [Mass/Vol]98 ug/dLNormal 35 - 153 mcg/dLFTMC RemisolIron binding capacity [Mass/Vol]480 ug/zXIuvu861 - 400 mcg/dLFTMC RemisolTransferrin [Mass/Vol]343 mg/uLXeajwg635 - 370 mg/dLFTMC RemisolConsent for Treatmenton 06-13-8850Indievz for Treatment [id number]#1.00CD:127NormalBerger HospitalFerritinon 27-68-9266Sjowyeyq [Mass/Vol]23 ng/mKZvvhcr59-967PpmaraBerger HospitalComment on above:Result Comment: NORMALS MEN <30 YRS 16-132 ng/mL MEN >30 YRS 8-338 ng/mL WOMEN (PREMEN) 6-104 ng/mL WOMEN (POSTMEN) 12-210 ng/mLPerformed By: #### 2784924, 5954158, 8005139, 7503835, 02898374, 224298876, 1337904, 65728486, 9026869, 425828778 #### [facility] [address] [place], [place] [address]MBBXVQNDGTTqgaqhy By: SYSTEM SYSTEM on 29-44-6665Jcbuwednc/100 WBC (Bld)1.7 %Normal0.0 - 2.0 %[facility] HemeAutoSSBasophils/Leukocytes Auto (Bld) [Pure # fraction]0.1 E9/LNormal0.0 - 0.2 E9/LFTMC HemeAutoSSEosinophils/100 WBC (Bld)3.4 %Normal0.0 - 8.0 %[facility] HemeAutoSSEosinophils/Leukocytes Auto (Bld) [Pure # fraction]0.2 E9/LNormal0.0 - 0.5 E9/LFTMC HemeAutoSSLymphocytes/100 WBC (Bld)34.6 %Oaicub81.0 - 50.0 %[facility] HemeAutoSSLymphocytes/Leukocytes Auto (Bld) [Pure # fraction]1.8 E9/LNormal1.0 - 4.0 E9/LFTMC HemeAutoSSMonocytes/100 WBC (Bld)13.1 %Normal4.0 - 14.0 %[facility] HemeAutoSSMonocytes/Leukocytes Auto (Bld) [Pure # fraction]0.7 E9/LNormal0.2 - 1.0 E9/LFTMC HemeAutoSSNeutrophils/100 WBC (Bld)47.2 %Hjbusz47.0 - 75.0 %[facility] HemeAutoSSNeutrophils/Leukocytes Auto (Bld) [Pure # fraction]2.5 E9/LNormal2.0 - 7.5 E9/LFTMC HemeAutoSSHEMATOLOGYOrdered By: Latoya Damon on 22-07-8198Uucylofsgdt distribution width (RBC) [Ratio]15.2 % High10.9 - 14.2 %[facility] HemeAutoSSHematocrit (Bld) [Volume fraction]40.4 %Normal 34.0 - 46.0 %[facility] HemeAutoSSHemoglobin (Bld) [Mass/Vol]13.8 g/iXIwlukt47.0 - 16.0 gm/dLFTMC HemeAutoSSMCH (RBC) [Entitic mass]26.9 pgLow27.0 - 34.0 pgFTMC HemeAutoSSMCHC (RBC) [Mass/Vol]34.2 g/jLPnpvez92.4 - 36.0 gm/dLFTMC HemeAutoSS MCV (RBC) [Entitic vol]78.8 fLLow80.0 - 100.0 fLFTMC HemeAutoSSPlatelet mean volume (Bld) [Entitic vol]7.2 fLNormal6.4 - 10.8 fLFTMC HemeAutoSSPlatelets (Bld) [#/Vol]355.0 E9/IRnibns523.0 - 500.0 E9/LFTMC HemeAutoSSRBC (Bld) [#/Vol] 5.1 E12/LNormal4.3 - 5.9 E12/LFTMC HemeAutoSSWBC corrected for nucl RBC Auto (Bld) [#/Vol]5.3 E9/LNormal4.0 - 11.0 E9/LFTMC HemeAutoSSIronon 40-62-7267Wayc [Mass/Vol]98 microgram/uIHhjipl12-535RexdvaBerger HospitalComment on above:Performed By: #### 2174086, 1404985, 7868939, 0306130, 57378047, 641857910, 5469550, 09478907, 9377467, 470935935 #### [facility] [address], [place] [address]Kjsgjmzgw Orderon 18-69-2341Wzmwpepvn Order [id number]#1.00CD:127NormalBerger HospitalTIBC Calculatedon 23-83-6711Nmuy binding capacity [Mass/Vol]480 microgram/kPAusc475-337RtgfouBerger HospitalComment on above:Performed By: #### 6066369, 8193055, 8541132, 5925815, 33416522, 258987188, 1459227, 01292809, 5292740, 420596368 #### [facility] [address], [place] [address]Uiohlomncul [Mass/Vol]343 mg/sCCxjtlh560-833WoynroBerger HospitalComment on above:Performed By: #### 0384028, 4053215, 0603292, 6526600, 99275796, 535930571, 0135395, 36109464, 0319903, 854461927 #### [facility] [address], [place] [address]BK Spine Cervical 6 or More Viewson 28-20-5615QL Spine Cervical 6 or More ViewsExam Date/Time: 01/29/2022 07:24 EST Reason for Exam: M54.2 G62.9 Report CERVICAL SPINE SERIES WITH OBLIQUE, LATERAL, AND FLEXION VIEWS. IMPRESSION: NO ACUTE FRACTURE. C2 CERVICAL ANTEROLISTHESIS DESCRIBED. MARKED DEGENERATIVE CHANGE CERVICAL SPINE. CLINICAL HISTORY: M54.2 G62.9 COMPARISON: NONE. FINDINGS: Loss cervical lordosis. Vertebral bodies normal in height. Diffuse disc anterolisthesis C2 on C3 measuring 1.4 mm neutral projection, 2.8 mm flexion, and alignment maintained on extension imaging. Space narrowing cervical spine, greatest at C4-C5 through C6-C7. Anterior osteophytes C3-C7. Posterior osteophytes C6-C7. FINAL REPORT Dictated: 01/29/2022 1:24 pm Bharath Morris MD Signed (Electronic Signature): 01/29/2022 1:24 pm Signed by: Bharath Morris MD Transcribed by: BECKIE Technologist: [facility] Agnes HospitalCoding Summary.on 76-34-7122Utdfdb Summary. CD:[id number]:[id number]+PGhlYWQ+UJ8BKMIdT10anVFhqF8JB9aGZH2YJLJIDPLVGX5KDX7jb ZU2UEewH3RwviXg [file] YXBz (more content not included)...NormalBerger HospitalAuto Diffon 23-86-2140Qjdyhhjlt/100 WBC (Bld)1.3 %Normal0.0-2.0[facility] Comment on above:Order Comment: Order Added by Discern Expert.Performed By: #### 0140385, 1687833, 5201784, 8194504, 75981426, 093841253, 6862496, 57415994, 1923231, 491591933 #### [facility] [address], [place] [address]Ylgjztntz/Leukocytes Auto (Bld) [Pure # fraction]0.1 E9/LNormal 0.0-0.2Fisher St. Agnes HospitalComment on above:Order Comment: Order Added by Discern Expert.Performed By: #### 0846553, 2730840, 6179637, 3501008, 15213729, 112330923, 5119641, 59416376, 2026807, 797857255 #### [facility] [address], [place] [address]Smteduxwlpd/100 WBC (Bld)3.2 %Normal0.0-8.0Berger HospitalComment on above:Order Comment: Order Added by Discern Expert.Performed By: #### 4904623, 9873682, 8070380, 9630367, 54596993, 760042501, 9060612, 59976426, 4985446, 158604303 #### [facility] [address] [place] [address]Krqzdvvknej/Leukocytes Auto (Bld) [Pure # fraction]0.1 E9/L Normal0.0-0.5FThe Jewish HospitalComment on above:Order Comment: Order Added by Discern Expert.Performed By: #### [id number], 3242865, 3603119, 7331263, 00471181, [id number], 7097143, 00557703, 0653557, [id number] #### [facility] [address] [place] [address]Jxcnmekwede/100 WBC (Bld)32.7 %Vcqake12.0-50.0[facility] HospitalComment on above:Order Comment: Order Added by Discern Expert. Performed By: #### [id number], 0390870, 4063239, 4462885, 38256612, 397040432, 3326243, 37207174, 5935839, [id number] #### [facility] [address] [place] [address]48[address]Hwttgqyscmi/Leukocytes Auto (Bld) [Pure # fraction]1.5 E9/L Normal1.0-4.0[facility] HospitalComment on above:Order Comment: Order Added by Discern Expert.Performed By: #### [id number], 6990405, 4242336, 4255177, 29075581, 279620981, 6571895, 08317133, 2679617, [id number] #### [facility] [address], [place] [address]Jgmcqkxgr/100 WBC (Bld)12.3 %Normal4.0-14.0[facility] HospitalComment on above:Order Comment: Order Added by Discern Expert.Performed By: #### [id number], 3000959, 6331725, 1344756, 54540772, 128846556, 4779430, 06516156, 3345195, 119429837 #### [facility] [address], [place] [address]Zhwksmdmy/Leukocytes Auto (Bld) [Pure # fraction]0.5 E9/LNormal 0.2-1.0[facility] HospitalComment on above:Order Comment: Order Added by Discern Expert.Performed By: #### [id number], 2659215, 7646456, 1761407, 25396139, 620455962, 4582578, 61515791, 0761666, [id number] #### [facility] [address], [place] [address]Lrrzdkqkxfx/100 WBC (Bld)50.5 %Ajxfig92.0-75.0[facility] HospitalComment on above:Order Comment: Order Added by Discern Expert. Performed By: #### [id number], 8170637, 8006376, 7228058, 76649266, 858105303, 9338401, 51370620, 6834648, [id number] #### [facility] [address], [place] [address]Govtdudwivc/Leukocytes Auto (Bld) [Pure # fraction]2.2 E9/L Normal2.0-7.5FThe Jewish HospitalComment on above:Order Comment: Order Added by Discern Expert.Performed By: #### 0041306, 1941174, 5707449, 7755971, 38161690, 306860469, 0677347, 00844611, 5613762, 128543088 #### [facility] [address], [place] [address]RJS w/ Auto Diffon 86-38-2124Zncfewbtcff distribution width (RBC) [Ratio]14.8 %High10.9-14.2FThe Jewish HospitalComment on above: Performed By: #### 9410250, 6579070, 2137027, 7605269, 93725830, 458451720, 3226430, 36373800, 8953369, [id number] #### [facility] [address], [place] [address]Eherxqpogt (Bld) [Volume fraction]38.6 %Kpjdrq80.0-46.0Berger HospitalComment on above:Performed By: #### 2426746, 0790157, 1703597, 0204539, 55054185, 335277422, 4934145, 40296890, 4153507, 856589109 #### [facility] [address] [place] [address] 22756Mcaqjuldgg (Bld) [Mass/Vol]13.2 g/nXWomuhd32.0-16.0Berger HospitalComment on above:Performed By: #### 7329676, 4554323, 6138832, 4195412, 95361293, 602569660, 2405133, 25654869, 1086289, 890492621 #### [facility] [address] [place] [address] 74555IFZ (RBC) [Entitic mass]27.2 jcVjpvel54.0-34.0Berger HospitalComment on above:Performed By: #### 8518283, 6251559, 6457945, 2324686, 53572005, 173582646, 0447060, 99259922, 3053891, 025655022 #### [facility] [address], [place] [address]WXNV (RBC) [Mass/Vol]34.3 g/gWCodnzd86.4-36.0Berger HospitalComment on above:Performed By: #### 9384011, 6084536, 3241423, 5086986, 47372856, 366042601, 9521698, 33297622, 1715993, 200890671 #### [facility] [address], [place] [address]VCF (RBC) [Entitic vol]79.3 fLLow80.0-100.0Berger HospitalComment on above:Performed By: #### 2520637, 5167704, 4094840, 6117027, 82261740, 706388971, 8110876, 04857444, 8952127, 892381188 #### [facility] [address] [place] [address]Gvqrnvbz mean volume (Bld) [Entitic vol]7.2 fLNormal6.4-10.8 Berger HospitalComment on above:Performed By: #### 3426958, 8262437, 3179868, 3859392, 06219095, 733302818, 0040495, 28472070, 9527270, 637650926 #### [facility] [address] [place] [address]Thgcnorgw (Bld) [#/Vol]341.0 E9/BZkjtsa952.0-500.0Berger HospitalComment on above:Performed By: #### 0568570, 3238900, 8115842, 1511564, 34744655, 803720868, 2976805, 20286731, 8351521, 541504530 #### [facility] [address] [place] [address] 00847SJD (Bld) [#/Vol]4.9 E12/LNormal4.3-5.9Berger HospitalComment on above:Performed By: #### 6185243, 9536632, 9176885, 4654319, 26226224, 859089534, 8342973, 43410272, 6010385, 108355473 #### [facility] [address] [place] [address] 742[address]XOW corrected for nucl RBC Auto (Bld) [#/Vol]4.4 E9/LNormal 4.0-11.0Berger HospitalComment on above:Performed By: #### 5982981, 7135805, 1177352, 9105936, 10321842, 519374795, 1835752, 49822576, 3239876, 478083375 #### [facility] [address] [place], [place] [address]OCPLHOHJCWqbsjax By: SYSTEM SYSTEM on - hydroxyvitamin D3 [Mass/Vol]68.7 ng/hCHbngto21.0 - 100.0 ng/mLFTMC Remisol Albumin [Mass/Vol]4.8 g/dLNormal3.3 - 5.0 gm/dLFTMC RemisolAlbumin/Globulin [Mass ratio]1.7 {ratio}Normal1.1 - 2.2[facility] RemisolALP [Catalytic activity/Vol]83 [iU]/qIynfpa01 - 98 Int._Unit/LFTMC RemisolALT No additional P-5'-P [Catalytic activity/Vol]23 [iU]/dNormal6 - 46 Int._Unit/LFTMC RemisolAnion gap [Moles/Vol] 11 mmol/LNormal6 - 16 mEq/LFTMC RemisolAST [Catalytic activity/Vol]29 [iU]/d Normal5 - 43 Int._Unit/LFTMC RemisolBilirubin [Mass/Vol]0.3 mg/dLNormal0.0 - 1.1 mg/dLFTMC RemisolCalcium [Mass/Vol]9.5 mg/dLNormal8.9 - 11.1 mg/dLFTMC Remisol Chloride [Moles/Vol]96 mmol/EPua071 - 111 mmol/LFTMC RemisolCholesterol [Mass/Vol]127 mg/rWZwpwgv089 - 200 mg/dLFTMC RemisolCholesterol in HDL [Mass/Vol]59 mg/dLInvalid Interpretation CodeFTMC RemisolCholesterol in LDL [Mass/Vol]65 mg/dLNormal<=129mg/dLFTMC RemisolCholesterol in VLDL [Mass/Vol]12 mg/dLNormal7 - 40 mg/dLFTMC RemisolCO2 [Moles/Vol]28 mmol/DUbpjyt82 - 31 mmol/L [facility] RemisolCreatinine [Mass/Vol]0.7 mg/dLNormal0.5 - 1.3 mg/dLFTMC Remisol Ferritin [Mass/Vol]28 ng/xVJmmfrd12 - 307 ng/mLFTMC RemisolGFR/1.73 sq M.predicted among blacks MDRD (S/P/Bld) [Vol rate/Area]mL/min/1.73 r9Xrpyuc >=59mL/min/1.73 m2FT[facility] Chem SGFR/1.73 sq M.predicted among non-blacks MDRD (S/P/Bld) [Vol rate/Area]mL/min/1.73 y2Auvmnh>=59mL/min/1.73 m2FT[facility] Chem S Globulin (S) [Mass/Vol]2.9 g/dLNormal1.4 - 4.0 gm/dLFTMC RemisolGlucose [Mass/Vol]103 mg/ePMnbqnv09 - 199 mg/dLFTMC RemisolIron [Mass/Vol]53 ug/dLNormal 35 - 153 mcg/dLFTMC RemisolIron binding capacity [Mass/Vol]440 ug/lCLumv266 - 400 mcg/dLFTMC RemisolPotassium [Moles/Vol]4.9 mmol/LNormal3.5 - 5.3 mmol/LFTMC RemisolProtein [Mass/Vol]7.7 g/dLNormal6.0 - 7.8 gm/dLFTMC RemisolSodium [Moles/Vol]130 mmol/APos261 - 145 mmol/LFTMC RemisolTransferrin [Mass/Vol]314 mg/oLLcsucp674 - 370 mg/dLFTMC RemisolTriglyceride [Mass/Vol]59 mg/dLNormal <=149mg/dLFTMC RemisolUrea nitrogen [Mass/Vol]17 mg/dLNormal5 - 21 mg/dLFTMC RemisolUrea nitrogen/Creatinine [Mass ratio]24 mg/eaNmvv67 - 20[facility] Remisol CHEMISTRYOrdered By: Vaibhav Suarez on 82-69-9468BsY8u (Bld) [Mass fraction] 5.3 %Normal<=5.9%[facility] ChemAutoSSCMPon 89-69-2098Ypbxwmw [Mass/Vol]4.8 g/dLNormal 3.3-5.0Berger HospitalComment on above:Performed By: #### 5221529, 7447405, 1589498, 0961436, 45975948, 130323132, 8666240, 94569992, 1492879, 023133660 #### [facility] [address], [place] [address]Hjaabio/Globulin (S) [Mass conc ratio]1.0Rezwni3.1-2.2[facility] Agnes HospitalComment on above:Performed By: #### 7071918, 2356809, 8500900, 2920990, 90945170, 093317689, 6534023, 26076672, 8556663, 086882973 #### [facility] [address] [place] [address]GJU [Catalytic activity/Vol]83 Int._Unit/ITfaglf71-88IonsszBerger HospitalComment on above:Performed By: #### 9772818, 6873091, 0358723, 8999938, 05993060, 630462483, 3075695, 33605601, 0568080, 633230939 #### [facility] [address] [place] [address] 530[address]BFW No additional P-5'-P [Catalytic activity/Vol]23 Int._Unit/L Normal6-46Berger HospitalComment on above:Performed By: #### 5371791, 6168022, 0261489, 4573557, 09949192, 000570082, 8245559, 17838081, 2742115, 159505871 #### [facility] [address], [place] [address]Lcbdu gap [Moles/Vol]11 mmol/LNormal6-16Berger HospitalComment on above:Performed By: #### 4227839, 2075543, 6064592, 4592066, 66067168, 317838241, 8951744, 22004960, 2429366, 913463983 #### [facility] [address], [place] [address]JCT [Catalytic activity/Vol]29 Int._Unit/LNormal5-43Berger HospitalComment on above:Performed By: #### 9349759, 1164152, 7486934, 3009163, 76524397, 318401739, 9016125, 80784202, 7502989, 210151132 #### [facility] [address], [place] [address]Oyeatxkox [Mass/Vol]0.3 mg/dLNormal0.0-1.1FThe Jewish HospitalComment on above:Performed By: #### 9478670, 8224363, 2581751, 7875294, 70771290, 906964820, 2793952, 93862959, 5480923, 169891345 #### [facility] [address], [place] [address]Oarunst [Mass/Vol]9.5 mg/dLNormal8.9-11.1FThe Jewish HospitalComment on above:Performed By: #### 0745887, 3939437, 5403452, 8819735, 39717748, 664022218, 9011057, 96927069, 3098121, 268597855 #### [facility] [address], [place] [address]Xrbdzkvu [Moles/Vol]96 mmol/LVto975-759RrsljfBerger HospitalComment on above:Performed By: #### 0343025, 5991373, 8630668, 5415880, 58365922, 418850432, 7957036, 97836675, 7880847, 705247052 #### [facility] [address], [place] [address]QT2 [Moles/Vol]28 mmol/MVrtekh47-17QywbufBerger Hospital Comment on above:Performed By: #### 2039818, 0183310, 8823433, 3773877, 53019621, 968717704, 7350540, 79066779, 0791965, 779007663 #### [facility] [address], [place] [address]Qajzcdeozv [Mass/Vol]0.7 mg/dLNormal0.5-1.3FThe Jewish HospitalComment on above:Performed By: #### 5215336, 2577174, 1483453, 9982734, 04435171, 973823917, 7448531, 35073820, 1622408, 718684384 #### [facility] [address], [place] [address]Mctwuvgi (S) [Mass/Vol]2.9 g/dLNormal1.4-4.0Berger HospitalComment on above:Performed By: #### 9676655, 9572057, 1719379, 2259428, 05891401, 154418964, 7255857, 36596056, 6300647, 731790003 #### [facility] [address], [place] [address]Xsomyfq [Mass/Vol]103 mg/sJJtclxn30-534FlobztBerger HospitalComment on above:Result Comment: If this glucose result represents a fasting glucose, interpretation should refer tothe following reference range: 55-99 mg/dLPerformed By: #### 3303449, 3978418, 3734904, 9629490, 18329892, 419176486, 0787021, 80641667, 3656348, 066535425 #### [facility] [address], [place] [address]Huxcmndtn [Moles/Vol]4.9 mmol/LNormal3.5-5.3FThe Jewish HospitalComment on above:Performed By: #### 4475332, 4431765, 1596583, 8062707, 02026403, 675872761, 6830128, 96766956, 3098282, 952964774 #### [facility] [address], [place] [address]Tshcsdy [Mass/Vol]7.7 g/dLNormal6.0-7.8Berger HospitalComment on above:Performed By: #### 4430821, 5252251, 8498838, 5426363, 27326448, 458932746, 1203232, 10420814, 5337920, 992899138 #### [facility] [address], [place] [address]Uuiryk [Moles/Vol]130 mmol/KKhc811-647AhhdhkBerger HospitalComment on above:Performed By: #### 0215807, 5846204, 7610993, 9190525, 46710419, 519025298, 8355860, 09517957, 0277061, 981701793 #### [facility] [address], [place] [address]Hwhd nitrogen [Mass/Vol]17 mg/dLNormal5-21Berger HospitalComment on above:Performed By: #### 6801362, 7413862, 5875253, 4228989, 46521257, 811506392, 2606950, 58015598, 3337545, 010229330 #### [facility] [address], [place] [address]Qiem nitrogen/Creatinine [Mass ratio]24 No NvsbgMssu05-39ExxeiaBerger HospitalComment on above:Performed By: #### 5348747, 1100375, 1410215, 7473508, 01330105, 158459697, 0525088, 78129683, 0836015, 643313421 #### [facility] [address], [place] [address]Oxorgel for Treatmenton 80-18-2062Rfuncsp for Treatment [id number]#1.00CD:127NormalBerger HospitalFerritinon 82-98-0147Rrywowtv [Mass/Vol]28 ng/sUFjpkey63-293BvvquvBerger HospitalComment on above:Result Comment: NORMALS MEN <30 YRS 16-132 ng/mL MEN >30 YRS 8-338 ng/mL WOMEN (PREMEN) 6-104 ng/mL WOMEN (POSTMEN) 12-210 ng/mLPerformed By: #### 8946687, 4449017, 4807982, 6445766, 38424440, 859601996, 8099020, 82363118, 6011097, 669430807 #### [facility] [address] [place] [address]MCRZVWFVRMUaorphu By: SYSTEM SYSTEM on 26-03-4734Wpuqybllb/100 WBC (Bld)1.3 %Normal0.0 - 2.0 %[facility] HemeAutoSSBasophils/Leukocytes Auto (Bld) [Pure # fraction]0.1 E9/LNormal0.0 - 0.2 E9/LFTMC HemeAutoSSEosinophils/100 WBC (Bld)3.2 %Normal0.0 - 8.0 %[facility] HemeAutoSSEosinophils/Leukocytes Auto (Bld) [Pure # fraction]0.1 E9/LNormal0.0 - 0.5 E9/LFTMC HemeAutoSSLymphocytes/100 WBC (Bld)32.7 %Mfwboy92.0 - 50.0 %[facility] HemeAutoSSLymphocytes/Leukocytes Auto (Bld) [Pure # fraction]1.5 E9/LNormal1.0 - 4.0 E9/LFTMC HemeAutoSSMonocytes/100 WBC (Bld)12.3 %Normal4.0 - 14.0 %[facility] HemeAutoSSMonocytes/Leukocytes Auto (Bld) [Pure # fraction]0.5 E9/LNormal0.2 - 1.0 E9/LFTMC HemeAutoSSNeutrophils/100 WBC (Bld)50.5 %Pjrjej27.0 - 75.0 %[facility] HemeAutoSSNeutrophils/Leukocytes Auto (Bld) [Pure # fraction]2.2 E9/LNormal2.0 - 7.5 E9/LFTMC HemeAutoSSHEMATOLOGYOrdered By: Alyssa Maloney on 25-27-9253Nnnzzixjceo distribution width (RBC) [Ratio]14.8 %High10.9 - 14.2 %[facility] HemeAutoSSHematocrit (Bld) [Volume fraction]38.6 %Normal 34.0 - 46.0 %[facility] HemeAutoSSHemoglobin (Bld) [Mass/Vol]13.2 g/gAIyspzd78.0 - 16.0 gm/dLFTMC HemeAutoSSMCH (RBC) [Entitic mass]27.2 zwAluvwr08.0 - 34.0 pgFTMC HemeAutoSSMCHC (RBC) [Mass/Vol]34.3 g/sWJbwdil13.4 - 36.0 gm/dLFTMC HemeAutoSS MCV (RBC) [Entitic vol]79.3 fLLow80.0 - 100.0 fLFTMC HemeAutoSSPlatelet mean volume (Bld) [Entitic vol]7.2 fLNormal6.4 - 10.8 fLFTMC HemeAutoSSPlatelets (Bld) [#/Vol]341.0 E9/KYwvuqm925.0 - 500.0 E9/LFTMC HemeAutoSSRBC (Bld) [#/Vol] 4.9 E12/LNormal4.3 - 5.9 E12/LFTMC HemeAutoSSWBC corrected for nucl RBC Auto (Bld) [#/Vol]4.4 E9/LNormal4.0 - 11.0 E9/LFTMC NkpiXwybAVVruA2knw 10-25-2021 HbA1c (Bld) [Mass fraction]5.3 %Normal<=5.9Berger HospitalComment on above:Performed By: #### 0613336, 9161736, 8622178, 5358815, 81524300, 888727553, 9111196, 89449753, 5433241, 323355667 #### [facility] [address] [place], [place] [address]Haghvh 09-31-0882Mpgc [Mass/Vol]53 microgram/pFBwfmkl42-653 Berger HospitalComment on above:Performed By: #### 8792796, 2525273, 3052966, 5713008, 76025969, 006010960, 7585502, 66019973, 9327456, 819402057 #### [facility] [address], [place] [address]Xdygo Panelon 05-85-3683Llkkiteusji [Mass/Vol]127 mg/dLNormal 120-200Berger HospitalComment on above:Performed By: #### 1946104, 1826561, 4420886, 8253949, 05690750, 490068742, 2317981, 12218365, 3915816, 951614023 #### [facility] [address], [place] [address]Blpsaplzjuz in HDL [Mass/Vol]59 mg/dLInvalid Interpretation CodeBerger HospitalComment on above:Result Comment: HDL > or equal to 60 mg/dL: Low cardiovascular risk HDL < 40 mg/dL : High cardiovascular riskPerformed By: #### 0275446, 0184257, 1142580, 3379009, 79111604, 773818724, 3773965, 32535037, 4613631, 375254737 #### [facility] [address], [place] [address]Zpjovzjnwnb in LDL [Mass/Vol]65 mg/dLNormal<=129Berger HospitalComment on above:Performed By: #### 1832637, 1419461, 1827621, 7322799, 09661040, 841563204, 4786847, 88924243, 3778206, 791198774 #### [facility] [address], [place] [address]Shzjcyhqcmu in VLDL [Mass/Vol]12 mg/dLNormal7-40Berger HospitalComment on above:Performed By: #### 2785365, 2367624, 3389520, 3189229, 12215801, 577051858, 7526410, 65496250, 5899035, 267683123 #### [facility] [address], [place] [address]Sukuybocxilw [Mass/Vol]59 mg/dLNormal<=149Berger HospitalComment on above:Performed By: #### 1440121, 0580805, 0079766, 4882912, 68671389, 766072479, 5965324, 60832786, 7039592, 956335722 #### [facility] [address], [place] [address]Ruqvonkbs Orderon 53-46-6278Xghmzcucz Order [id number]#1.00CD:127NormalBerger HospitalTIBC Calculatedon 51-07-8488Wjqq binding capacity [Mass/Vol]440 microgram/cPUqau418-854UvlhofBerger HospitalComment on above:Performed By: #### 1603893, 7953645, 5730654, 1269629, 89353452, 932378281, 7207302, 15922864, 3997149, 683754755 #### [facility] [address], [place] [address]Nkcfsmzgisg [Mass/Vol]314 mg/oSHplpsh639-980TxrxqtBerger HospitalComment on above:Performed By: #### 9883844, 2654874, 7693728, 4201908, 01569126, 574283347, 8736806, 55242216, 0632423, 417034475 #### [facility] [address], [place] [address]Uedatrp D 25 Hydroxyon 20-34-127757348069-vwhkqmlmlrjlvo D3 [Mass/Vol]68.7 ng/dEWtbrwd75.0-100.0Berger HospitalComment on above: Result Comment: Vitamin D deficiency has been defined as a level of serum 25-OH vitamin D less than 20 ng/mL (1,2) by the [employer] of Medicine and an Endocrine Society practice guideline. The Endocrine Society further defined vitamin D insufficiency as a level between 21 and 29 ng/mL (2). 1. IOM ([place] of Medicine). 2010. Dietary reference intakes for calcium and D. [place]: The National Academies Press. 2. Sarah MF, Ligia NC, Skylar BALDERAS, et al. Evaluation, treatment, and prevention of vitamin D deficiency: an Endocrine Society clinical practice guideline. JCEM. 2010; 96 (7):1911-30.Performed By: #### 5648295, 9497768, 9495994, 5892101, 75847861, 288533644, 9515875, 27210546, 3952657, 947507501 #### [facility] [address], [place] [address]lPJNan 96-30-2592TWO/1.73 sq M.predicted among blacks MDRD (S/P/Bld) [Vol rate/Area]mL/min/{1.73_m2}Normal>=59[facility] Comment on above:Order Comment: Order Added by Discern Expert.Result Comment: eGFR is race adjusted. AA=.Performed By: #### 0838902, 2964126, 2582140, 8991395, 87618815, 597237444, 2305982, 18367833, 4176351, 754582514 #### [facility] [address], [place] [address]GSU/1.73 sq M.predicted among non-blacks MDRD (S/P/Bld) [Vol rate/Area]mL/min/{1.73_m2}Normal>=59Berger HospitalComment on above: Order Comment: Order Added by Discern Expert.Result Comment: Chronic kidney disease could be indicated at eGFR's of less than 60 mL/min/1.73m2. Kidney failure is indicated at less than 15 mL/min/1.73m2.Performed By: #### 7176588, 0559327, 3658779, 4587058, 58478422, 748034153, 1708381, 55749319, 0377828, 031225841 #### [facility] [address], [place] [address]Brpjjyc Screening.on 83-63-4732Jlcyk depression screening assessmentMeeker Memorial [facility] 600 DO Work Phone: Fall risk assessmenta) No falls within the last year MP-Merged With [facility] 600 DO Work Phone: Tobacco use status CPHSb) NoMP-Merged With [facility] 600 DO Work Phone: CHEMISTRYOrdered By: SYSTEM SYSTEM on 81-99-2299JCX [Mass/Vol]0.7 mg/dLNormal<=1.9mg/dLFTMC RemisolFerritin [Mass/Vol]31 ng/mLNormal 11 - 307 ng/mLFTMC RemisolIron [Mass/Vol]45 ug/uQHqbmuk29 - 153 mcg/dLFTMC RemisolIron binding capacity [Mass/Vol]430 ug/kLOktc652 - 400 mcg/dLFTMC Remisol Transferrin [Mass/Vol]307 mg/kICgwwkf665 - 370 mg/dLFTMC RemisolHEMATOLOGY Ordered By: SYSTEM SYSTEM on 28-18-8110Wpfcjtucw/100 WBC (Bld)0.6 %Normal0.0 - 2.0 %[facility] HemeAutoSSBasophils/Leukocytes Auto (Bld) [Pure # fraction]0.0 E9/L Normal0.0 - 0.2 E9/LFTMC HemeAutoSSEosinophils/100 WBC (Bld)7.1 %Normal0.0 - 8.0 %[facility] HemeAutoSSEosinophils/Leukocytes Auto (Bld) [Pure # fraction]0.2 E9/L Normal0.0 - 0.5 E9/LFTMC HemeAutoSSLymphocytes/100 WBC (Bld)24.5 %Wirlud49.0 - 50.0 %[facility] HemeAutoSSLymphocytes/Leukocytes Auto (Bld) [Pure # fraction]0.7 E9/L Low1.0 - 4.0 E9/LFTMC HemeAutoSSMonocytes/100 WBC (Bld)14.1 %High4.0 - 14.0 % [facility] HemeAutoSSMonocytes/Leukocytes Auto (Bld) [Pure # fraction]0.4 E9/LNormal 0.2 - 1.0 E9/LFTMC HemeAutoSSNeutrophils/100 WBC (Bld)53.7 %Zvlclf41.0 - 75.0 % [facility] HemeAutoSSNeutrophils/Leukocytes Auto (Bld) [Pure # fraction]1.5 E9/LLow2.0 - 7.5 E9/LFTMC HemeAutoSSHEMATOLOGYOrdered By: Jesusita Marvin on 07-30-2021 Erythrocyte distribution width (RBC) [Ratio]18.9 %High10.9 - 14.2 %[facility] HemeAutoSSHematocrit (Bld) [Volume fraction]38.6 %Wvicyg92.0 - 46.0 %[facility] HemeAutoSSHemoglobin (Bld) [Mass/Vol]12.8 g/sAWkwehw25.0 - 16.0 gm/dLFTMC HemeAutoSSMCH (RBC) [Entitic mass]25.4 pgLow27.0 - 34.0 pgFTMC HemeAutoSSMCHC (RBC) [Mass/Vol]33.2 g/xSSqszie92.4 - 36.0 gm/dLFTMC HemeAutoSSMCV (RBC) [Entitic vol]76.5 fLLow80.0 - 100.0 fLFTMC HemeAutoSSPlatelet mean volume (Bld) [Entitic vol]7.0 fLNormal6.4 - 10.8 fLFTMC HemeAutoSSPlatelets (Bld) [#/Vol] 220.0 E9/GZfdqdg635.0 - 500.0 E9/LFTMC HemeAutoSSRBC (Bld) [#/Vol]5.0 E12/L Normal4.3 - 5.9 E12/LFTMC HemeAutoSSWBC corrected for nucl RBC Auto (Bld) [#/Vol]2.8 E9/LLow4.0 - 11.0 E9/LFTMC HemeAutoSSHEMATOLOGYOrdered By: Kinjal Alvarado on 33-40-7429Fzv Rate Oingmttjy37 mm/hNormal0 - 34 mm/hrFTMC HemeAutoSSXR KNEE RIGHT (3 VIEWS)on 19-98-2111ZI KNEE RIGHT (3 VIEWS)EXAM: XR KNEE RIGHT (3 VIEWS) HISTORY: M25.561. Right knee pain. COMPARISON: None. TECHNIQUE: Standing AP views of both knees and lateral and sunrise patella views of the right knee were obtained. 3 radiographs in total. FINDINGS: There is no acute fracture or dislocation. Osseous structures are appropriately mineralized. There is mild femorotibial joint space narrowing with minimal osteophyte formation and chondrocalcinosis. Severe patellofemoral joint space narrowing is present with zcpy-ie-jvrj contact and show clear groove remodeling as well as mild lateral subluxation of the patella. Large suprapatellar joint effusion is present. IMPRESSION: 1. No acute osseous abnormality. 2. Severe patellofemoral joint degenerative change with cjxe-og-uytw contact and trochlear remodeling. Mild femorotibial joint space narrowing with chondrocalcinosis at the femorotibial joint. 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 Interpreted by: Greg Mercado MD Signed by: Greg Mercado MD 09/29/18 Final resultNormalCleveland Clinic Medina [facility] Vital Signs Date TimeVital SignValuePerforming CflpkxzzqXadcowwz13-24-8083 14:47-0400Body .9 cmFredric Plynkedkatherin DO Work Phone: [facility] HospitalSvsudmgyjt77-76-6550 14:47-0400Body mass index (BMI) [Ratio]28.15 kg/g0Iosacku Itzkowitz DO Work Phone: [facility] HospitalKufmcwpeud06-22-0482 14:47-0400Body pxuner66.59 kgFredric Itzkowitz DO Work Phone: [facility] HospitalSxvfrhhijl67-04-3138 08:08-0400Body cajsgv905.94 cmDatramaine Ron DO Work Phone: [phone]09-19-2025 08:08-0400 Body mass index (BMI) [Ratio]29.2 kg/e3Girgq Ron DO Work Phone: [phone]09-19-2025 08:08-0400 Body nlahedjussu34.6 [degF]Mayco Velasquez DO Work Phone: [phone]35[facility]09-19-2025 08:08-0400 Body ftyyeg25.3 kgDavishantanu Velasquez DO Work Phone: [phone]09-19-2025 08:08-0400 Diastolic blood ornxuhut93 mm[Hg]Mayco Velasquez DO Work Phone: [facility]09-19-2025 08:08-0400 Heart rate77 /Himanshu Velasquez DO Work Phone: [phone]09-19-2025 08:08-0400 SaO2% (BldA) [Mass fraction]98 %Mayco Velasquez DO Work Phone: [phone]09-19-2025 08:08-0400 Systolic blood jrtcwolx304 mm[Hg]Mayco Velasquez DO Work Phone: [phone]26[facility]07-09-2025 09:05-0400 Body zzkfed387.9 cmDeb Zamora MD Work Phone: [phone]07-09-2025 09:05-0400 Body mass index (BMI) [Ratio]29.48 kg/h0BjrcruDeb Zamora MD Work Phone: 1([phone] [place], [place] 7859807-09-2025 09:05-0400 Body vfoiwq43.76 kgDeb Zamora MD Work Phone: 1(044)[phone] [place], [place] 7859807-09-2025 09:05-0400 Diastolic blood dvdzruyg69 mm[Hg]Deb Zamora MD Work Phone: 1(901)[address]07-09-2025 09:05-0400 Heart rate60 /minDeb Zamora MD Work Phone: 1(396)[phone] [place], [place] 7859807-09-2025 09:05-0400 Systolic blood mhdunuqd886 mm[Hg]Deb Zamora MD Work Phone: 1(030)[address]05-05-2025 01:00-0400 Diastolic blood djycfcee66 mm[Hg]Mayco Velasquez DO Work Phone: [facility]05-05-2025 01:00-0400 Heart rate64 /Himanshu Velasquez DO Work Phone: 1([phone])[address]05-05-2025 01:00-0400 Respiratory rate18 /Roseannashelton Velasquez DO Work Phone: 1(670)[address] [place], [place] 8503205-05-2025 01:00-0400 SaO2% (BldA) [Mass fraction]100 %Mayco Velasquez DO Work Phone: 1(279)[address] [place], [place] 8503205-05-2025 01:00-0400 Systolic blood mm[Hg]Mayco Velasquez DO Work Phone: 1(322)[address] [place], [place] 8503205-04-2025 23:54-0400 Body lbpifd420.94 cmDavishantanu Henryjessica DO Work Phone: 1(160)[address] [place], [place] 8503205-04-2025 23:54-0400 Body qoiiuh19.9 kgDaastonshantanu Henryjessica DO Work Phone: 1(230)[address] [place], [place] 8503205-04-2025 23:47-0400 Body indhzuipxig62.6 [degF]Mayco Velasquez DO Work Phone: 1(601)[address] [place], [place] 8503203-19-2025 08:03-0400 Body yioqnf172.21 cmDaastonshantanu Henryjessica DO Work Phone: 1(473)[address] [place], [place] 8503203-19-2025 08:03-0400 Body mass index (BMI) [Ratio]31.8 kg/g6Xpcrt Girjessica DO Work Phone: 1(502)[address] [place], [place] 8503203-19-2025 08:03-0400 Body bpabwdfpmis64.3 [degF]Mayco Velasquez DO Work Phone: 1(093)[address] [place], [place] 8503203-19-2025 08:03-0400 Body cbcpuz48.56 kgDaastonshantanu Velasquez DO Work Phone: 1(119)[address] [place], [place] 8503203-19-2025 08:03-0400 Diastolic blood sqhvrwla44 mm[Hg]Mayco Velasquez DO Work Phone: 1(013)[address] [place], [place] 8503203-19-2025 08:03-0400 Heart rate70 /Himanshu Velasquez DO Work Phone: [facility]03-19-2025 08:03-0400 Systolic blood fmarfxll152 mm[Hg]Mayco Velasquez DO Work Phone: [facility]03-05-2025 09:30-0500 Body vzveqm711.9 cmPacc 2 Work Phone: [facility]03-05-2025 09:30-0500Body mass index (BMI) [Ratio]32.91 kg/m2Pacc 2 Work Phone: [facility]03-05-2025 09:30-0500Body temperature 97.9 [degF]Pacc 2 Work Phone: [facility]03-05-2025 09:30-0500Body mozidn87 kg Pacc 2 Work Phone: [facility]03-05-2025 09:30-0500Diastolic blood wopkkgwt81 mm[Hg]Pacc 2 Work Phone: [facility]03-05-2025 09:30-0500Heart rate67 /min Pacc 2 Work Phone: [facility]03-05-2025 09:30-0500Respiratory rate 16 /minPacc 2 Work Phone: [facility]03-05-2025 09:30-4845PcH0% (BldA) [Mass fraction]97 %Pacc 2 Work Phone: [facility]03-05-2025 09:30-0500Systolic blood mm[Hg]Pacc 2 Work Phone: [facility] [facility] 08:30-0500Body xdzugm247.9 cmMichael Cabrera DO Work Phone: noB[facility] HospitalFdkxkmbkgn09-51-7465 08:30-0500Body mass index (BMI) [Ratio]32.5 kg/b6Foudqgc Cabrera DO Work Phone: noms Fyhnzfptje91-94-6557 08:30-0500Body .02 kgMichael Cabrera DO Work Phone: [facility] HospitalBallyvwnmm23-67-6312 08:07-0400Body cshquv136.21 cmDO Mayco Velasquez Work Phone: [phone]09-19-2024 08:07-0400 Body mass index (BMI) [Ratio]32.3 kg/m2DO Mayco Velasquez Work Phone: [phone]09-19-2024 08:07-0400 Body konzadixwnh18.9 [degF]DO Mayco Velasquez Work Phone: [phone]09-19-2024 08:07-0400 Body .92 kgDO Mayco Velasquez Work Phone: [phone])519[address]09-19-2024 08:07-0400 Diastolic blood etcfjzhw36 mm[Hg]DO Mayco Velasqeuz Work Phone: [phone]09-19-2024 08:07-0400 Heart rate70 /minDO Mayco Velasquez Work Phone: [phone])01215 [address]09-19-2024 08:07-0400 SaO2% (BldA) [Mass fraction]97 %DO Mayco Velasquez Work Phone: [phone]09-19-2024 08:07-0400 Systolic blood ietfgmqq504 mm[Hg]DO Mayco Velasquez Work Phone: [phone]09-11-2024 13:28-0400 Body ooewpcbaeaa03.1 [degF]Spine Main Work Phone: c[facility] HospitalQddqon00-14-6093 13:28-0400Diastolic blood toaimhcv26 mm[Hg]Spine Main Work Phone: c[facility] HospitalRyjvsy15-30-4388 13:28-0400Heart rate73 /min Spine Main Work Phone: c[facility] HospitalUnekjf28-37-4451 13:28-0400Respiratory rate 18 /minSpine Main Work Phone: c[facility] HospitalOncgmn87-23-7654 13:28-0400Systolic blood kzlbmhdy400 mm[Hg]Spine Main Work Phone: c[facility] HospitalIzcfmt03-45-0268 09:56-0400Body .9 cmAngabhijit Whelan BARREL LATHE OPERATOR OUTSIDE Work Phone: [facility] HospitalTsijyvqoyx82-68-4614 09:56-0400Body mass index (BMI) [Ratio]34.28 kg/e1PmgfkjAlyssa Olmosmor BARREL LATHE OPERATOR OUTSIDE Work Phone: [facility] HospitalGkaqhcbbzl35-20-7292 09:56-0400Body azihvv48.28 kgAlyssa Yinr BARREL LATHE OPERATOR OUTSIDE Work Phone: [place] [address]Kohjygvhky78-66-5758 09:56-0400Diastolic blood esbejdjg08 mm[Hg]Alyssa Olmosmiko BARREL LATHE OPERATOR OUTSIDE Work Phone: [facility] HospitalMdtrnyagjl83-61-6458 09:56-0400Systolic blood gazlhzmi106 mm[Hg]Alyssa Olmosmiko BARREL LATHE OPERATOR OUTSIDE Work Phone: [facility] HospitalVchpqsvaic77-94-5794 15:41-0400Body hpyqwv637.21 cmDO Mayco Velasquez Work Phone: [phone]08-06-2024 15:41-0400 Body mass index (BMI) [Ratio]34 kg/m2DO Mayco Velasquez Work Phone: [facility]08-06-2024 15:41-0400 Body noaqniyalks51 [degF]DO Mayco Velasquez Work Phone: [phone]08-06-2024 15:41-0400 Body gigwal64 kgDO Mayco Velasquez Work Phone: [facility]08-06-2024 15:41-0400 Diastolic blood karvvgix33 mm[Hg]DO Mayco Velasquez Work Phone: [phone]08-06-2024 15:41-0400 Heart rate77 /Ej Velasquez Work Phone: [facility]08-06-2024 15:41-0400 Respiratory rate18 /Ej Velasquez Work Phone: [facility]08-06-2024 15:41-0400 SaO2% (BldA) [Mass fraction]96 %DO Mayco Velasquez Work Phone: [facility]08-06-2024 15:41-0400 Systolic blood xbvtqiyb320 mm[Hg]DO Mayco Velasquez Work Phone: [facility]07-09-2024 08:56-0400 Body qunwuj054.9 cmDeb Zamora MD Work Phone: [facility]07-09-2024 08:56-0400 Body mass index (BMI) [Ratio]35.14 kg/k3RweevaDeb Zamora MD Work Phone: [address] [place], [place] 47[address]307-09-2024 08:56-0400 Body .37 kgDeb Zamora MD Work Phone: [phone]07-09-2024 08:56-0400 Diastolic blood mm[Hg]Deb Zamora MD Work Phone: [facility]07-09-2024 08:56-0400 Heart rate64 /minDeb Zamora MD Work Phone: [facility]07-09-2024 08:56-0400 Systolic blood acnqkipb425 mm[Hg]Deb Zamora MD Work Phone: [facility]06-03-2024 14:28-0400 Body .3 kgBelinda Weaver MD Work Phone: [facility]06-03-2024 14:28-0400Diastolic blood ohrnpkgb02 mm[Hg]Belinda Weaver MD Work Phone: [facility]06-03-2024 14:28-0400Heart rate72 /min Belinda Weaver MD Work Phone: [facility]06-03-2024 14:28-4268EaH3% (BldA) [Mass fraction]94 %Belinda Weaver MD Work Phone: [facility]06-03-2024 14:28-0400Systolic blood jeqjtsau506 mm[Hg]Belinda Weaver MD Work Phone: [facility]02-28-2024 08:09-0500Body eurqaf763.21 cmDO Mayco Velasquez Work Phone: [phone]65[facility]02-28-2024 08:09-0500 Body mass index (BMI) [Ratio]35.6 kg/m2DO Mayco Velasquez Work Phone: [phone]78[facility]02-28-2024 08:09-0500 Body lihnnomqfjw27.1 [degF]DO Mayco Velasquez Work Phone: [phone])23415 [address]02-28-2024 08:09-0500 Body vopptf69.08 kgDO Mayco Velasquez Work Phone: [phone]34[facility]02-28-2024 08:09-0500 Diastolic blood wdlpitgp95 mm[Hg]DO Mayco Velasquez Work Phone: [phone]33[facility]02-28-2024 08:09-0500 Heart rate67 /RoseannaTiana Velasquez Work Phone: [phone])23415 [address]02-28-2024 08:09-0500 Respiratory rate18 /Ej Velasquez Work Phone: [phone])568-[address] [place], [place] 9775602-28-2024 08:09-0500 SaO2% (BldA) [Mass fraction]95 %DO Mayco Velasquez Work Phone: [phone]02-28-2024 08:09-0500 Systolic blood cwxztabk119 mm[Hg]DO Mayco Velasquez Work Phone: [phone]79[facility]10-19-2023 09:10-0400 Body ggjwik383.21 cmDatramaine Velasquez Other [employer] Other 10-19-2023 09:10-0400Body mass index (BMI) [Ratio] 34.27 kg/x8Pafabtramaine Velasquez Other [employer] Other 10-19-2023 09:10-0400Body ggjipbqiztw69.4 [degF]Mayco Velasquez Other [employer] Other 10-19-2023 09:10-0400Body .64 kgDatramaine Velasquez Other [employer] Other 10-19-2023 09:10-0400Diastolic blood mm[Hg] Mayco Velasquez Other [employer] Other 10-19-2023 09:10-0400Respiratory rate18 /minDshelton Velasquez Other [employer] Other 10-19-2023 09:10-6427OmH8% (BldA) [Mass fraction]96 % Mayco Velasquez Other [employer] Other 10-19-2023 09:10-0400Systolic blood lskuufdv362 mm[Hg] Mayco Velasquez Other [employer] Other 08-23-2023 10:30-0400Body nwipfi395.21 cmDatramaine Velasquez Other [employer] Other 08-23-2023 10:30-0400Body mass index (BMI) [Ratio] 33.46 kg/n6DdailMayco Velasquez Other [employer] Other 08-23-2023 10:30-0400Body .65 kgDatramaine Velasquez Other [employer] Other 08-23-2023 10:30-0400Diastolic blood ieqiiqdf22 mm[Hg] Mayco Velasquez Other [employer] Other [id number] 10:30-0400Respiratory rate18 /minDavishantanu Velasquez Other [employer] Other 08-23-2023 10:30-9453ThI8% (BldA) [Mass fraction]96 % Mayco Velasquez Other [employer] Other 08-23-2023 10:30-0400Systolic blood uoyijzwg871 mm[Hg] Mayco Velasquez Other [employer] Other 917116-40-4598 08:33-0400Body bmsusj903.94 cmDatramaine Henryjessica Work Phone: [phone]) [phone]-Zelyk [place] [employer] [address] DO Work Phone: 1(360)[phone]-1567 08:33-0400Body mass index (BMI) [Ratio]34.2 kg/n0Qdfsn C Ron Work Phone: 1(950) [phone]-Eeroo [place] [employer] [address] DO Work Phone: 1([phone])[phone]577 08:33-0400Body surface area Derived from formula1.81 j7Dytpi C Ron Work Phone: 1(643) [phone]-Zhlnt [place] [employer] [address] DO Work Phone: 1(888)[phone]-0071 08:33-0400Body maqrwe54.1 kgDatramaine Webster Ron Work Phone: 1(527) [phone]-Ynkvu [place] [employer] [address] DO Work Phone: 1(724)[phone]-7780 08:33-0400Diastolic blood bjhpuicq39 mm[Hg] Mayco Velasquez Work Phone: 1(416) [phone]-Rnveh [place] [employer] [address] DO Work Phone: 1(582.419.429407-11-2023 08:33-0400Heart rate78 /Himanshu Velasquez Work Phone: mp749-4805TV-Trwbc [place] [employer] [address] DO Work Phone: 1(534) 160-506507-11-2023 08:33-0400Systolic blood mm[Hg] Mayco Velasquez Work Phone: mp065-7445ZU-Mpydi [place] [employer] [address] DO Work Phone: 1(343) 412-227811-07-2022 10:10-0500Body .21 cmDatramaine Velasquez Other [employer] Other 11-07-2022 10:10-0500Body mass index (BMI) [Ratio] 32.71 kg/b6KgfucMayco Velasquez Other [employer] Other 11-07-2022 10:10-0500Body .8 [degF]Mayco Velasquez Other [employer] Other 11-07-2022 10:10-0500Body .83 kgDatramaine Velasquez Other [employer] Other 11-07-2022 10:10-0500Diastolic blood azauioem81 mm[Hg] Mayco Velasquez Other [employer] Other 11-07-2022 10:10-0500Respiratory rate18 /Himanshu Velasquez Other [employer] Other 11-07-2022 10:10-9357HtU4% (BldA) [Mass fraction]98 % Mayco Velasquez Other [employer] Other 11-07-2022 10:10-0500Systolic blood liwvhjni323 mm[Hg] Mayco Velasquez Other [employer] Other 08-18-2022 09:10-0400Body .21 cmDatramaine Velasquez Other [employer] Other 08-18-2022 09:10-0400Body mass index (BMI) [Ratio] 31.78 kg/r9Qfdeitramaine Velasquez Other [facility] Other 08-18-2022 09:10-0400Body utjukjmpiex08.6 [degF]Mayco Velasquez Other [employer] Other 08-18-2022 09:10-0400Body .57 kgDatramaine Velasquez Other [employer] Other 08-18-2022 09:10-0400Diastolic blood hufzrqbj70 mm[Hg] Mayco Velasquez Other [employer] Other 08-18-2022 09:10-0400Respiratory rate18 /minDshelton Velasquez Other [employer] Other 08-18-2022 09:10-3938VaC1% (BldA) [Mass fraction]98 % Mayco Velasquez Other [facility] Other 08-18-2022 09:10-0400Systolic blood bgjmdkja642 mm[Hg] Mayco Velasquez Other [employer] Other 07-11-2022 09:33-0400Diastolic blood mm[Hg] Mayco Velasquez Work Phone: mp193-4007CW-[facility]rzNorth[facility] 600 DO Work Phone: 1(149) 748-129007-11-2022 09:33-0400Systolic blood newlbgvb597 mm[Hg] Mayco Velasquez Work Phone: 1(414) [phone]-KmaonAlomere [facility] 600 DO Work Phone: 1(677)[phone] 09:24-0400Body razhtp476.94 cmDatramaine Velasquez Work Phone: 1(882) [phone]-DgptaL[facility] 600 DO Work Phone: 1(409)[phone]-5280 09:24-0400Body mass index (BMI) [Ratio] 32.12 kg/z8Gnmpxtramaine Velasquez Work Phone: 1(289) [phone]-KqawsLake Region Hospital 600 DO Work Phone: 1(721)[phone]-0383 09:24-0400Body surface area Derived from formula1.76 a2Essottramaine Velasquez Work Phone: 1(718) [phone]-QyxyeLake Region Hospital 600 DO Work Phone: 1([phone] 09:24-0400Body beandf47.11 kgDatramaine Velasquez Work Phone: 1(909) [phone]-UabonLake Region Hospital 600 DO Work Phone: 1(462)[phone]-7301 09:24-0400Diastolic blood nbihunmw69 mm[Hg] Mayco Velasquez Work Phone: 1(922) [phone]-ZzyedLake Region Hospital 600 DO Work Phone: 1(993)[phone]-3297 09:24-0400Heart rate60 /minDshelton Velasquez Work Phone: 1(148) [phone]-NxnzuLake Region Hospital 600 DO Work Phone: 1(525)[phone] 09:24-0400Systolic blood mnzkseic75 mm[Hg] Mayco Velasquez Work Phone: 1(841) [phone]-KropvLake Region Hospital 600 DO Work Phone: 1(773) 590-727806-30-2022 13:32-0400Body dqvmofethns45.42 [degF] Sade ANDRADE 315-5465Sdxnjb-NvuzqReg[facility] 06-30-2022 13:32-0400Diastolic blood glxqsrgo70 mm[Hg] Sade ANDRADE 779-2581Bkrixw-SkjpxReg[facility] 06-30-2022 13:32-0400Heart rate88 /minSade RAYMOND 118-2812Yirrrd-JewzzRegency Hospital [facility] 06-30-2022 13:32-3977LkK3% (BldA) [Mass fraction]98 % Sade ANDRADE 815-6476Zjhevn-VulyzRegency [facility] 06-30-2022 13:32-0400Systolic blood rljpksop703 mm[Hg] Sade JACKLEY 607-2861Gwjjsv-VxekiRegency Hospital [facility] 11-10-2021 09:10-0500Body .21 cmDatramaine Velasquez Other [employer] Other 11-10-2021 09:10-0500Body mass index (BMI) [Ratio] 29.74 kg/y8RoganMayco Velasquez Other [employer] Other 11-10-2021 09:10-0500Body qtooyaweieg58.3 [degF]Mayco Velasquez Other [employer] Other 11-10-2021 09:10-0500Body .58 kgDatramaine Velasquez Other [employer] Other 11-10-2021 09:10-0500Diastolic blood pcbhzkby98 mm[Hg] Mayco Velasquez Other [employer] Other 11-10-2021 09:10-0500Respiratory rate18 /minDshelton Velasquez Other [employer] Other 11-10-2021 09:10-5185EdV6% (BldA) [Mass fraction]98 % [facility] [employer] Other 11-10-2021 09:10-0500Systolic blood dckwcler795 mm[Hg] Mayco Velasquez Other [employer] Other Encounters Encounter DateEncounter TypeCare ProviderFacilityStart: 01-09-2025 End: 10-48-8380Zazxsra encounter procedureDatramaine Velasquze DO-Electrodiagnostics Work Phone: Start: 01-09-2025 End: 70-28-5402facerosrykYbauc Girvin DO Work Phone: [phone]-EzoqrxnugicgalrwexTkfrf: 01-02-2025 End: 79-20-4953Oiifwo outpatient new 30 minutesFredric Shantel Patino DO Work Phone: [facility] Surgical AssociatesComment on above:Special screening for malignant neoplasms, colon (Primary Dx)Start: 01-02-2025 End: 89-45-5660xzimyzkvudACEKXUH H ITZKOWITZNot AvailableStart: 12-05-2024 End: 14-09-7083Krbgvvq encounter procedureMayco Velasquez DO-[facility]art: 12-05-2024 End: 57-42-0064bgbmiwydcmKjsls Girvin DO Work Phone: [facility] Work Phone: Start: 12-02-2024 End: 76-10-3435uocaqkptokJpbcd Girvin DO Work Phone: [facility] Work Phone: Start: 12-02-2024 End: 26-55-0314Gkjrhrb encounter procedureDatramaine Eleanor Velasquez DO-[facility] Work Phone: Start: 11-23-2024 End: 78-79-6159Gdgivgb encounter procedureDavishantanu Eleanor Velasquez DO-[facility] Tylertart: 11-23-2024 End: 51-03-7275tlmstxjbdkOevho Ron ANTHONY Work Phone: [facility] Work Phone: Start: 83-46-3130Nwy-patient / Non-visitDatramaine Henryjessica ANTHONY-[facility] Work Phone: Start: 11-21-2024 End: 85-71-8926Ufuvvpa encounter procedureDatramaine Henryjessica ANTHONY-[facility] Tylertart: 11-21-2024 End: 59-23-3276aqtcgufxsvRtuuh Ron ANTHONY Work Phone: [facility] Work Phone: Start: 10-19-2024 End: 60-30-8816Yyscnea encounter procedureREFERRAL [facility] Work Phone: Start: 10-19-2024 End: 42-79-0076kpvwqmnjceNbauc Ron ANTHONY Work Phone: [facility] Work Phone: Start: 09-21-2024 End: 16-14-5799Nhnftn outpatient visit 25 minutesDeb Zamora MD Work Phone: [facility] CenterComment on above:Essential hypertension (Primary Dx); Mixed hyperlipidemia; Supraventricular tachycardia; Never smoked tobacco; BMI 29.0-29.9,adult; OverweightStart: 09-21-2024 End: 82-78-2637vizeztuvyjCGBVYF M [facility] AmbulatoryStart: 08-31-2024 End: 50-47-6320Ykyunwg encounter procedureDatramaine Henryjessica ANTHONY-[facility] Work Phone: Start: 07-17-2024 End: 93-06-3068Qoeeccixc department patient visitDavishantanu Velasquez DO Work Phone: [facility]-Emergency Room Work Phone: Start: 06-08-2024 End: 42-72-0990Crhmwn follow up visit related to original pxMejia John PA-Eleanor Work Phone: Plastic SurgeryComment on above:Post-operative state (Primary Dx)Start: 06-08-2024 End: 90-37-0231gjxaryukvnSWRSQW ALEKSEYENKOFacility:[facility] HospitalStart: 06-01-2024 End: 39-79-5457Qmkdnzklp encounterDenzaid John PA-C Work Phone: Plastic SurgeryStart: 06-01-2024 End: 01-80-7872eaxruvcnyrIkuxg Girvin DO Work Phone: [facility] Work Phone: Start: 06-01-2024 End: 10-56-0061Gsldzyp encounter procedureDatramaine Velasquez DO Work Phone: [facility] Work Phone: Start: 05-20-2024 End: 63-79-8491Blzkhmnhy Randy Meraz MD Work Phone: plastic SurgeryStart: 05-20-2024 End: 62-45-2906ghqjedbzpvIIYGVL KAOFacility:[facility] HospitalStart: 05-18-2024 End: 66-68-5443Kpuiewfww to establishmentPacc Oliverio 2 Work Phone: Pre AnesthesiaStart: 05-18-2024 End: 35-05-7995uyvlmrhkjaPIVHKU KAOFacility:[facility] Hospitaltart: 05-18-2024 End: 80-42-1912Xpcuqpffhh consultationPapatrick Martinez 2 Work Phone: Pre AnesthesiaComment on above:Pre-op examination (Primary Dx); Other migraine without status migrainosus, not intractable; Essential hypertension; Hyperlipidemia, unspecified hyperlipidemia type; Paroxysmal SVT (supraventricular tachycardia) (HCC); Gastroesophageal reflux disease without esophagitis; Other iron deficiency anemia; Rheumatoid arthritis, involving unspecified site, unspecified whether rheumatoid factor present (HCC); Obesity (BMI 30.0-34.9)Start: 18-70-6672Twrybpdin for other preprocedural examinationDAVID RONOhiohealth Hardin Memorial HospitalStart: 05-18-2024 End: 15-47-1793Axafpzsquhevr examination doneTraci Ville [address] Work Phone: [facility] Work Phone: Start: 05-12-2024 End: 22-82-4632Ruxdklz encounter procedureDavishantanu Velasquez DO Work Phone: [facility]ertart: 05-12-2024 End: 45-62-8922ozpmqvbdjxOwswj Girvin DO Work Phone: [facility] Work Phone: Start: 04-08-2024 End: 67-94-1202Zowppa consultation new/estab patient [address] [place] DANG Work Phone: plastic SurgeryComment on above:Carpal tunnel syndrome, left (Primary Dx)Start: 04-08-2024 End: 13-28-9800lctcvhljvpTJAIG C GIRVINFacility:[facility] Hospitaltart: 04-07-2024 End: 02-06-1612Npkoboc encounter procedureDatramaine Velasquez DO Work Phone: [facility] Work Phone: Start: 04-07-2024 End: 85-94-6110omgzhsasbcHfgbo Girvin DO Work Phone: [facility] Work Phone: Start: 04-05-2024 End: 13-45-7334Awnxkm flowsheetMichael T Cabrera DO Work Phone: [facility] ORTHOStart: 04-05-2024 End: 30-55-6500Ypiqpe flowsheetMichael T Cabrera DO Work Phone: [facility] ORTHOStart: 04-05-2024 End: 03-35-4872Jfmafwkff encounterDenzaid John PA-C Work Phone: plastic SurgeryComment on above:Order for X-ray Before Appt FriStart: 03-08-2024 End: 67-27-0190Qwgttcw encounter procedureMichael T Cabrera DO Work Phone: [facility] NB ORTHOComment on above:Presence of right artificial knee joint (Primary Dx); Primary osteoarthritis of left kneeStart: 03-08-2024 End: 00-29-7625cypwevpjepXDBRTMB T POWERSNot AvailableStart: 03-01-2024 End: 48-89-6978Kaklvkr encounter procedureDavid Girvin DO Work Phone: [facility] Work Phone: Start: 03-01-2024 End: 97-09-5669wfhiajjvteBvdvj RonFacility:[facility] Start: 03-01-2024 End: 51-86-8279Wntphmy encounter procedureDatramaine Velasquez DO Work Phone: [facility] Work Phone: Start: 02-24-2024 End: 53-04-8728D-mail encounter from caregiverChpearl Barry PA-C Work Phone: OrthopaedicsStart: 02-24-2024 End: 00-59-6986Izxqdry encounter procedureChristopher Elmer Barry PA-C Work Phone: OrthopaedicsComment on above:New Appointment 03/23/2024 Start: 02-23-2024 End: 87-53-1825pepkvukvuuNnmvie M Zachary DO Work Phone: spine InstituteComment on above:Hand specialistStart: 02-21-2024 End: 03-19-5615thdyrobtjxXbcaqa M Zachary DO Work Phone: spine InstituteComment on above:HandStart: 01-18-2024 Non-patient / Non-visitDavishantanu Velasquez DO Work Phone: [facility] Work Phone: Start: 12-24-2023 End: 84-00-7592nkqpezcrljQzaqnh M Zachary DO Work Phone: spine InstituteComment on above:EMG of the left hand and cervical x-ray resultsStart: 12-24-2023 End: 44-00-5596X-mail encounter from Delma Andrea DO Work Phone: spine InstituteStart: 23-93-3178arjybvrntnTDAKT C GIRVINFacility:[facility]ertart: 12-22-2023 End: 65-95-4058Krmoqqgjav hospital visit by physicianPavan [facility] Work Phone: [facility] Radiology GeneralComment on above:Carpal tunnel syndrome of left wrist [G56.02]Start: 12-22-2023 End: 83-23-5296demcuphagoKQEZUF M ZACHARYFacility:[facility] Start: 12-22-2023 End: 34-43-2280Wdimonq encounter procedureEmg 2 Neur [facility] Rej (Max Weight: 400) Work Phone: NeurologyStart: 12-10-2023 End: 70-74-9787rfibtgtpvuTHKIE C GIRVINFacility:[facility] Hospitaltart: 12-10-2023 End: 22-44-0060Hdkrcmp encounter procedureSarbjit Andrea DO Work Phone: spine InstituteComment on above:Lumbar radiculopathy (Primary Dx); Carpal tunnel syndrome of left wrist; Left hand weakness; Disturbance of skin sensationStart: 12-03-2023 End: 88-59-1238Wwfzmouwo encounterPhillip Shagufta Waggoner DO Work Phone: spine InstituteStart: 12-03-2023 End: 84-97-5119qwtzaenihyJU Mayco Velasquez Work Phone: [facility] Work Phone: Start: 12-03-2023 End: 26-94-1654Wjzagha encounter procedureDO Mayco Velasquez Work Phone: [facility] Work Phone: Start: 11-27-2023 End: 62-29-8274LtukhtXdvakagz Tsai MD Work Phone: [facility] MedicineComment on above:Refill RequestStart: 11-25-2023 End: 06-86-0959sfcjqsktuxPKORB C GIRVINFacility:[facility] Hospitaltart: 11-25-2023 End: 17-58-7223Nietqmj encounter procedureSpine Med Procedure Main Work Phone: spine InstituteComment on above:Radiculopathy, lumbar region (Primary Dx)Start: 11-23-2023 End: 17-31-8107rjejeqteeuUS Mayco Velasquez Work Phone: [facility] Work Phone: Start: 11-23-2023 End: 39-23-1721Quimwnh encounter procedureDO Mayco Velasquez Work Phone: [facility]: 11-17-2023 End: 57-61-0707Rqgratxof encounterPhillip Shagufta Waggoner DO Work Phone: spine InstituteComment on above:Preparations For Procedures (Pre injection instructions)Start: 11-05-2023 End: 26-22-0725Vqohoki encounter procedureSarbjit Andrea DO Work Phone: spine InstituteComment on above:Radiculopathy, lumbar region (Primary Dx); Spondylolisthesis of lumbar regionStart: 11-05-2023 End: 57-14-0842fqejmymxoeRJRFK C GIRVINFacility:[facility] Hospitaltart: 11-05-2023 End: 09-30-3324Vrfiohbotw hospital visit by physicianXr [facility] Nan Work Phone: RadiologyComment on above:Other spondylosis with radiculopathy, 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]Start: 11-03-2023 End: 91-12-8074Ueeqqd outpatient visit 25 minutesAlyssa Whelan NP Work Phone: [facility] NE NEUROComment on above:Restless legs (Primary Dx); Paresthesia of skin; Anesthesia of skin; Chronic left-sided low back pain with left-sided sciaticaStart: 64-70-8966Saovidalan Weaver MD Work Phone: Internal MedicineComment on above:Refill RequestStart: 10-20-2023 End: 64-33-2614slxyfwgvzoXT David Girvin Work Phone: [facility] Work Phone: Start: 10-20-2023 End: 57-77-6223Oyiyuti encounter procedureDO Mayco Velasquez Work Phone: [facility] Work Phone: Start: 10-19-2023 End: 57-70-1583bmmbcwurkzHB David Girvin Work Phone: [facility] Work Phone: Start: 10-19-2023 End: [id number] encounter procedureDO Mayco Velasquez Work Phone: [facility] Work Phone: Start: 10-05-2023 End: 91-42-7670rhqzlpckghWB David Girvin Work Phone: [facility] Work Phone: Start: 10-05-2023 End: 81-00-2819Tqqvxyk encounter procedureDO Mayco Velasquez Work Phone: [facility]: 09-22-2023 End: 65-40-3533[place] outpatient visit 25 minutesDeb Zamora MD Work Phone: [facility] CenterComment on above:Essential hypertension (Primary Dx); Supraventricular tachycardia (CMS-HCC); Mixed hyperlipidemia; BMI 35.0-35.9,adult; Never smoked tobacco; Bilateral lower extremity edema; Rheumatoid arthritis, involving unspecified site, unspecified whether rheumatoid factor present (Multi)Start: 08-20-2023 End: 51-70-2975lmeovwwcovCP David Girvin Work Phone: [facility] Work Phone: Start: 08-20-2023 End: 75-10-3831Ohrfkhy encounter procedureDO Mayco Velasquez Work Phone: [facility] Family [facility] Work Phone: Start: 12-55-5385Emrvddrrn encounterBelinda Weaver MD Work Phone: Internal MedicineComment on above:Medication Question Start: 08-17-2023 End: 11-91-0909ennsqsrrscEBLNUT S PERHALAFacility:[facility] Start: 08-17-2023 End: 78-83-6233Qtrkfiv encounter Luiz Weaver MD Work Phone: RheumatologyComment on above:Primary osteoarthritis involving multiple joints (Primary Dx); Lumbar degenerative disc disease; Long-term use of PlaquenilStart: 74-43-5082avdhdiycauPELYUZ S PERHALA [facility]2023 End: 35-79-3161Scbjeic encounter procedureDO Mayco Velasquez Work Phone: [facility]: 06-01-2023 End: 94-68-5676yhtidfydppOY David Girvin Work Phone: [facility] Work Phone: Start: 06-01-2023 End: 92-28-5012Ibdykmr encounter procedureDO Mayco Velasquez Work Phone: [facility]: 79-01-3455Ffh-patient / Non-visitDO Mayco Velasquez Work Phone: [facility] Work Phone: Start: 05-25-2023 End: 13-11-8394Fisjoxa encounter procedureDO Mayco Velasquez Work Phone: [facility]: 05-15-2023 End: 34-43-3174Qaltxhc encounter procedureDO Mayco Velasquez Work Phone: [facility]: 05-13-2023 End: 83-76-0601Swljour encounter procedureDO Mayco Velasquez Work Phone: [facility] Work Phone: Start: 04-27-2023 End: 06-29-0594nanikdaqtaIettk Girvin Other [employer] Other Start: 96-97-0374Npmowzwgx encounterDavid HoustonG [facility] Medicine CrestonevueStart: 04-16-2023 End: 63-64-7562cvybrruphhZwduq Girvin Other [employer] Other Start: 51-46-3525Ksnscbriq encounterDavishantanu VelasquezFPG Family Medicine CrestonevueStart: 03-10-2023 End: 84-76-6885qjvwyeauhlWqqtp Girvin Other [employer] Other Start: 92-34-8688Uyxjrekxi encounterDavid RonFPG Family Medicine BellevueStart: 02-12-2023 End: 47-64-3238vsvithnkupRuwen Ron Other [employer] Other Start: 45-37-0020Hdgdcdpfj by computer linkDatramaine VelasquezFPG Family Medicine BellevueStart: 02-03-2023 End: 63-79-8781yejnjtmmepZqkwn Ron Other [employer]Golf[employer] Other Start: 45-02-5939Ylxqirkrm encounterDavid GirjessicaFPG Family Medicine BellevueStart: 01-01-2023 End: 89-85-5443gzebahqdwlOvzjc Ron Other [facility] [employer] Other Start: 81-99-9796Hdezmw outpatient visit 15 minutes Mayco Oquendo [facility] BellevueStart: 12-30-2022 End: 54-49-6477ikvxpbjyfdGbqeb Ron Other [employer] Other Start: 28-68-0386Qlkusetsg encounterDavid RonFPG Family Medicine BellevueStart: 11-26-2022 End: 62-07-7772kibjyfhpfhAlcti Ron Other [employer] Other Start: 17-55-3450Rrrevzuiv encounterDavid RonFPG Family Medicine BellevueStart: 11-05-2022 End: 58-31-9110pcceotfayxTqaxv Ron Other [employer] Other Start: 92-44-4513Ekjzwq outpatient visit 25 minutes Mayco Oquendo [facility] BellevueStart: 10-22-2022 End: 29-80-8796wdittxnvpkSisjb C GirvinFacility:FTMCStart: 10-22-2022 End: 87-23-7279Ghvrdpl encounter procedureDatramaine Velasquez [facility] Start: 10-17-2022 End: 80-25-4492pjptslnepgXH Mayco Elainejessica Work Phone: [facility] Work Phone: Start: 10-17-2022 End: 20-85-7653Clrxuig encounter procedureDO Mayco Henryjessica Work Phone: [facility] Work Phone: Start: 10-13-2022 End: 64-67-0011uiwbygglzxHirzl Girvin Other [employer] Other Start: 81-04-4335Wxhbvszwo encounterDavishantanu Oquendo [facility] BellevueStart: 56-49-2465Aatpgo outpatient visit 25 minutesDatramaine Velasquez Work Phone: [phone]-FqcphMaple [facility] 600 DO Work Phone: Start: 35-75-2774sfqnadtjgpUsulatoryDr. Deb Zamora Facility:[id number]: 09-12-2022 End: 20-66-7538dkyxumwvihXgqis Girvin Other [facility] [employer] Other Start: 64-92-0298Eznwxctbs encounterDavishantanu Oquendo [facility] BellevueStart: 07-10-2022 End: 86-16-1672abxvonedpeDrewe Girvin Other [employer] Other Start: 02-29-4165Dlpfdytpr encounterDatramaine Oquendo [facility] BellevueStart: 06-13-2022 End: 15-72-5616jwigccvupqFzhpa Girvin Other [employer] Other Start: 24-67-9661Qmzrwomyx encounterDavid Azra [facility] BellevueStart: 05-06-2022 End: 65-57-3048ykhgjazuevKlxwn Girvin Other [employer] Other Start: 73-44-6914Fqljpkuuu encounterDavid HoustonG [facility] BellevueStart: 04-30-2022 End: 34-75-1162ktpeycqzolVX Mayco Velasquez Work Phone: [facility] Work Phone: Start: 04-30-2022 End: 58-36-3396Rbnljtw encounter procedureDO Mayco Velasquez Work Phone: [facility]art: 04-28-2022 End: 30-72-9960ixwubuqddzUqgwr Girvin Other [employer] Other Start: 68-91-0145Ehdqwgwdm encounterDavid HoustonG [facility] BellevueStart: 03-25-2022 End: 54-71-2698rpnslweiczVoakf Girvin Other [employer] Other Start: 07-76-5785Qsaikrxll encounterDavid HoustonG [facility] BellevueStart: 02-28-2022 End: 87-69-5653yuntvirgdwWhohe Ron Other [employer] Other start: 68-77-8106Wyrflgabd encounterDavid HoustonG [facility] BellevueStart: 02-12-2022 End: 64-72-7205yobcpculloRrpdx Ron Other [employer] Other Start: 12-22-7135Uohlvsted encounterDavishantanu Oquendo [facility] BellevueStart: 02-02-2022 End: 29-69-4373sqwmcyukwpJlxhs Girvin Other [facility] [employer] Other Start: 29-20-8701Yyskcwtvq by computer linkMayco Oquendo [facility] BellevueStart: 48-26-4938Wswjhnzmw encounterDavishantanu Oquendo [facility] BellevueStart: 01-29-2022 End: 52-86-7168ejknbeglkoZIQEMH Carlos [facility] [employer] Other Start: 01-29-2022 End: 53-62-3255Scectep encounter procedureDatramaine Velasquez [facility] Start: 01-20-2022 End: 72-96-3556ehhiewnnbjGuhji Girvin Other [facility] [employer] Other Start: 23-66-5149Tuamws outpatient visit 15 minutes Mayco Oquendo [facility] [place]vueStart: 10-31-2021 End: 79-99-4475qcyngckcvjEayny Girvin Other [facility] [employer] Other Start: 06-31-7850Jepogzrim by computer linkMayco Oquendo [facility] BellevueStart: 64-29-9743Qbuunb outpatient visit 25 minutesDatramaine Oquendo [facility] BellevueStart: 10-25-2021 End: 30-28-2486neqyrnceyoWuxvv C GirvinFacility:FTMCStart: 10-25-2021 End: 54-26-1085Ajgkiyw encounter procedureDatramaine Velasquez [facility] Start: 10-16-2021 End: 55-59-5279Jjilmie encounter procedureDO Mayco Velasquez Work Phone: [facility] Start: 18-20-5147Pjqwbu outpatient visit 25 minutesDatramaine Velasquez Work Phone: [phone]-Ewzyr [facility] 600 DO Work Phone: Start: 09-12-2021 End: 95-99-6108Fxuscom encounter procedureSade ANDRADE [phone]-SzffxReg[facility] Start: 08-07-2021 End: 13-63-3697hifbikwsfbRikjj Girvin Other [employer] Other Start: 12-39-2194Urriiqldi encounterDatramaine Oquendo [facility] [place]vueStart: 07-30-2021 End: 00-45-2965Xutrixr encounter procedureHEATHERRICO LIN [facility] Start: 07-18-2021 End: 96-52-9235yvrfotfwgfBsszl Girvin Other [employer] Other Start: 15-46-7529Vyojcyipz encounterDatramaine Oquendo [facility] [place]vueStart: 05-17-2021 End: 26-49-2629lfjcmblnhfXdcey Girvin Other [employer] Other Start: 73-26-6025Nbkbuobka encounterDatramaine Oquendo [facility] [place]vueStart: 05-10-2021 End: 76-98-5097keoichlvliGbmdh Girvin Other [employer] Other Start: 68-09-5862Tbnzsg outpatient visit 25 minutes Mayco Oquendo [facility] [place]vueStart: 04-01-2021 End: 92-51-3670mkaggkwrwoSgqap Girvin Other [employer] Other Start: 08-43-4482Hrhotdptz by computer Ravindra Oquendo [facility]Start: 03-25-2021 End: 74-57-9775vfvfnluryiFeacs Girvin Other [employer] Other Start: 32-19-0046Kyeeufdjv encounterDatramaine Oquendo [facility] HospitalueStart: 03-18-2021 End: 35-97-5911dqxvwftgvrGlxwx Girvin Other [facility] [employer] Other Start: 44-96-6782Bgunvrbis encounterDatramaine Oquendo [facility]art: 03-13-2021 End: 38-90-7904ilcolzoqjiYcedv Girvin Other [facility] [employer] Other Start: 15-49-8083Nfmfgwbcv encounterDatramaine Oquendo [facility]ertart: 01-23-2021 End: 39-81-8458jooregfouuMhupj Girvin Other [employer] Other Start: 67-93-0630Bhfjev outpatient visit 15 minutes Mayco Oquendo [facility]art: 09-29-2018 End: 55-51-9120Wuddwqb encounter procedureMICJohnson City Medical Centertart: 09-29-2018 End: 15-60-7462Lnwbnmx encounter procedureMICHorizon Medical Center Procedures DateProcedureProcedure DetailPerforming ClinicianStart: 84-09-6932Aaggl culture Mayco Velasquez DO Work Phone: Start: 57-38-1772Gndqphuv identified in Blood by Wolf Velasquez DO Work Phone: start: 15-78-4690Dsufu cultureDshelton Velasquez DO Work Phone: Start: 52-85-2442Jwiqmncuv mammography of bilateral breastsDavid Ron DO Work Phone: Start: 08-99-5554Dzjy energy X-ray absorptiometryDavid Ron DO Work Phone: Start: 46-19-0877Gqjydqkdfr examination knee 3 views Vaibhav Alecia Cabrera DO Work Phone: Start: 98-93-3215Kolbxffvtp examination knee 3 views Vaibhav Alecia Cabrera DO Work Phone: Start: 37-87-4841M-ray of left knee, four viewsDatramaine Velasquez DO Work Phone: Start: 23-42-4178Ehafn spine cervical 4 or 5 views Sarbjit Andrea DO Work Phone: Start: 11-46-7413Joxmu Lester Velasquez Work Phone: Start: 13-78-9097Ptbcy spine lumbosacral minimum 4 viewsRachel S Shane MOTOR AND CONTROLS TESTER.REFINERY OPERATOR VISBREAKING Work Phone: Start: 76-05-5848Kucjgelar mammography of bilateral breastsDO Mayco Velasquez Work Phone: Start: 11-37-9293Eecef Lester Velasquez Work Phone: Start: 22-59-3722Stuzd cultureDO Mayco Velasquez Work Phone: Start: 10-82-6097Qmicc cultureDO Mayco Velasquez Work Phone: Start: 14-52-4955Papdj cultureDO Mayco Velasquez Work Phone: Start: 98-80-0699Qbjxdkyyh mammography of bilateral breastsDO Mayco Velasquez Work Phone: Start: 93-76-2596Ewabjyobj mammography of bilateral breastsDO Mayco Velasquez Work Phone: Start: 84-88-4539Pulohxdwkzhq of kneeROBERT HALADAY Comment on above:RIGHT TOTAL KNEE ARTHROPLASTYStart: 02-45-4303Iahxikjcts examination knee 3 viewsMICHAEL POWERSStart: 07-05-2018 Laparoscopic cholecystectomy with cholangiographyROBERT HALADAY Start: 61-90-4670smusa shoulder arthroscopyROBERT HALADAY Arthroplasty of kneeDavid C Girvin Work Phone: CholecystectomyDavid C Girvin Work Phone: ColonoscopyROBERT HALADAY EsophagogastroduodenoscopyROBERT HALADAY Hammer toe operationDavid C Girvin Work Phone: History of decompression of median nerveHistory of carpal tunnel surgery of right wristDavid Girvin DO Work Phone: HysterectomyROBERT HALADAY HysterectomyDavid C Girvin Work Phone: Osteotomy of phalanx of lesser toeROBERT HALADAY Comment on above:right 2nd toeRepair of shoulderDavid C Girvin Work Phone: TonsillectomyROBERT HALADAY Total colonoscopyDavid C Girvin Work Phone: wisdom teeth removedROBERT HALADAY Plan of Treatment DateCare ActivityDetailAuthorStart: 90-67-9201Eutzmwet ScreeningDiabetes ScreeningCleveland ClinicStart: 09-20-2025 End: 29-03-9572Vzdeilc encounter fvejoiwyd45/08/2026 8:40 AM EDT Office Visit [address] [place] [address] Deb Zamora MD [address] [facility] [place] [address] [facility]: 01-02-2025 End: 91-84-6237Pfqiptfepjw colorectal cancer DNA and occult blood screening [Presence] in StoolCologuard colon cancer screening Lab Routine Special screening for malignant neoplasms, colon Expected: 01/02/2025 (Approximate), Expires: 01/02/2026[facility] Work Phone: Comment on above:Expected: 01/02/2025 (Approximate), Expires: 01/02/2026Start: 25-42-2902Rdpxcfln identified in Urine by CultureUrine CultureWilson Memorial Hospitaltart: 52-59-0329Ssauh cultureWilson Memorial Hospitaltart: 90-56-0262Riwgbdla identified in Blood by Culture Blood CultureWilson Memorial Hospitaltart: 66-37-0419Ovhxzvz referral [facility] Work Phone: Start: 11-23-2024 End: 66-70-1523GfvuiiwpyWilson Memorial Hospitaltart: 87-72-2225Lxaofuyi identified in Urine by CultureUrine CultureAdena Pike Medical Center Start: 10-17-9939Sftpcpnbe vaccinationInfluenza Vaccine (#1)[facility] HospitalStart: 30-09-4771NG of head without contrastCT head/brain wo con [facility] Hospitaltart: 60-83-2894FC Unspecified body region WO contrastWilson Memorial Hospitaltart: 38-34-0400Zrqrc chest X-rayXR chest 1V portableWilson Memorial Hospitaltart: 71-78-3576JV Chest Single viewWilson Memorial Hospitaltart: 06-08-2024 End: 70-76-4638Nzgmvus encounter vejlihpaa05/26/2025 2:30 PM EDT Office Visit Plastic Surgery [address] [facility] [address] [place] [address] Mejia John PA-C [address] [place] [address] Post opPlastic SurgeryComment on above:Post opStart: 06-03-2024 End: 36-96-8823Gqoypmh encounter ghewmvalq73/21/2025 10:30 AM EDT Office Visit Plastic Surgery [address] [place] [address] Mejia John PA-C [address] [place] [address] Post opPlastic SurgeryComment on above:Post opStart: 05-20-2024 End: 37-11-8547Ujwfrvngo to same day surgery ypeius1905/20/2024 7:30 AM EST - 05/20/2024 8:33 AM EST Surgery [facility] - [facility] [address] [place] [id number] Mejia Meraz MD [address] [place] [address] ENDOSCOPIC RELEASE TUNNEL CARPALUniversity Hospitals St. [facility] Ambulatory Surgery - ASCEComment on above: ENDOSCOPIC RELEASE TUNNEL CARPALStart: 05-20-2024 End: 77-65-7397Fbpk wrst surg w/rls transvrs carpl ligmMM ASCStart: 05-20-2024 Subsequent hospital visit by azydhyesi38/07/2025 7:30 AM EST Hospital Encounter [facility] [address] [place] [address] Mejia Meraz MD [address] [facility] [place] [address] Carpal tunnel syndrome, left [G56.02][facility] Surgery - ASCEComment on above:Carpal tunnel syndrome, left [G56.02]Start: 91-05-8398Schxwoljnm hospital visit by rjkbaaknl86/02/2025 Hospital Encounter Surgery Center [address] [address] Mejia Meraz MD [address] [place] [address] Carpal tunnel syndrome, left [G56.02]Surgery Center Comment on above:Carpal tunnel syndrome, left [G56.02]Start: 04-18-2024 End: 45-49-2007Xrqipts encounter procedureNOMS NE NEUROStart: 04-08-2024 End: 31-43-6191Iwrrruv encounter gvvipbzet75/24/2025 11:00 AM EST Office Visit Plastic Surgery [address] [place] [address] Mejia John PA-C [address] [place] [address] Carpal tunnel syndrome, unspecified laterality [G56.00]Plastic SurgeryComment on above:Carpal tunnel syndrome, unspecified laterality [G56.00]Start: 04-05-2024 End: 99-77-8579Zhdazcb encounter procedureNOMS NB ORTHOComment on above:Primary osteoarthritis of left knee (Primary Dx)Start: 03-23-2024 End: 97-06-9473Abmgbub encounter procedureRadiologyComment on above:Bilateral hand and wrist painBilateal hand pain carpal tunnelStart: 56-29-2411Mnxznrg Directive DiscussionAdvance Directive DiscussionMercy Health St. Charles Hospitaltart: 02-02-2024 End: 94-72-5417Otufxd-up isbhvssjs71/19/2024 10:00 AM EST [facility] Rheumatology [address] [address] [place] [address] [facility] [place] [place] [address] Follow up, requesting virtual visitRheumatologyComment on above:Follow up, requesting virtual visitStart: 12-22-2023 End: 76-44-5532Cqgoegv encounter ljeaihocn19/08/2024 8:15 AM EDT Procedure Neurology [address] [place] [address] L UENeurology Comment on above:L UEStart: 12-10-2023 End: 05-14-6756Cezglur encounter rapqnzrbp41/26/2024 9:40 AM EDT Office Visit [facility] [address] [place] [address] [place] [address] [place] [address] follow upSpine InstituteComment on above:follow up Start: 11-25-2023 End: 21-10-1550Cmqdbwk encounter xiekmnliu55/11/2024 1:30 PM EDT Office Visit [facility] [address] [place] [address] Injection Type:Spine InstituteComment on above:Injection Type:Start: 29-69-2132Dosifwks identified in Urine by CultureWilson Memorial Hospitaltart: 11-15-2023 Covid-19 Vaccine ( season)Covid-19 Vaccine ( season) [facility]tart: 71-85-5369Svgbl-19 Vaccine ( season)Covid-19 Vaccine ( season)[facility]tart: 91-08-8655Yqiiksedc vaccinationMercy Health St. Charles Hospitaltart: 10-06-2023 End: 45-25-8140Lgwap metabolic 2000 panel - Serum or PlasmaBasic Metabolic Panel Lab Routine Essential hypertension Expected: 10/06/2023 (Approximate), Expires: 09/21/2024[facility] Service Area Work Phone: Comment on above:Expected: 10/06/2023 (Approximate), Expires: 09/21/2024Start: 55-25-1139YVP, Provider: Deb Zamora, Status: Pen, Time: 9:00 AMFUV, Provider: Deb Zamora, Status: Pen, Time: 9:00 [facility] 600 DO Work Phone: Start: 82-81-7830Plvehiyu identified in Urine by CultureUrine [facility] Hospitaltart: 80-90-7345Ygbwemz Directive DiscussionAdvance Directive DiscussionMercy Health St. Charles Hospitaltart: 13-54-2143Khjcsgffro Health ScreeningBehavioral Health ScreeningMercy Health [facility] Hospital Start: 95-68-7952Fdnwf-19 Vaccine ( season)Covid-19 Vaccine ( season)[facility]tart: 61-23-2112XCB, Provider: Deb Zamora, Status: Pen, Time: 8:30 AMFUV, Provider: Deb Zamora, Status: Pen, Time: 8:30 [facility]ake [facility] 600 DO Work Phone: Start: 40-13-5852Eppinpxm identified in Urine by CultureWilson Memorial Hospitaltart: 95-65-3500LczszhsunWilson Memorial Hospitaltart: 20-00-0935UHmH/Tdap/Td Vaccines (2 - Td or Tdap) DTaP/Tdap/Td Vaccines (2 - Td or Tdap)[facility]: 89-92-8100Yagqt microalbumin profileDTaP,Tdap,Td Vaccine (2 - Td or Tdap) [facility]: 78-32-9941KVI High Risk: (Elderly (60+) or Population) (1 - 1-dose 75+ series)RSV High Risk: (Elderly (60+) or Population) (1 - 1-dose 75+ series)[facility]: 19-86-0075UQT Vaccine (1 - 1-dose 75+ series)RSV Vaccine (1 - 1-dose 75+ series) [facility]: 00-46-8854Ajoszwmd Vaccine (3 of 3)Shingrix Vaccine (3 of 3)[facility]: 30-05-1175Htkgaj Vaccines (3 of 3)Zoster Vaccines (3 of 3)[facility]: 87-11-5546Zyaqgraqu for osteoporosisBone Density ScreeningMercy Health St. Charles Hospitaltart: 91-46-3584Yinkyxiwq B Vaccines (1 of 3 - Risk 3-dose series)Hepatitis B Vaccines (1 of 3 - Risk 3-dose series)[facility]: 09-48-6086ZSE patients and/or patients aged 60+ years (1 - 1-dose 60+ series)RSV patients and/or patients aged 60+ years (1 - 1-dose 60+ series)[facility]: 79-00-5219UKE Vaccine (1 - 1-dose 60+ series)RSV Vaccine (1 - 1- dose 60+ series)[facility]: 85-82-9125Rldbytfk ScreeningDiabetes ScreeningMercy Health St. Charles Hospitaltart: 29-48-2267Zjxjag PCP Team Chronic Disease Visit Annual PCP Team Chronic Disease VisitMercy Health St. Charles Hospitaltart: 71-08-1813Grqczax ScreeningAnxiety ScreeningMercy Health St. Charles Hospitaltart: 21-45-8970XE Controlled (<130/80)BP Controlled (<130/80)[facility]tart: 18-72-7666Wrqzehdotr ScreeningDepression ScreeningMercy Health Urbana Hospitalrt: 48-31-5440Upnnfqyd mellitus screeningDiabetes ScreeningUnKettering Health Preble: 01-26-1963 Hepatitis C screeningHepatitis C ScreeningMercy Health Urbana Hospitalrt: 69-71-7790Bzcwx panelLipid PanelUnKettering Health Preble: 1946Medicare Annual Wellness VisitMedicare Annual Wellness Visit (AWV)[facility]: 45-50-7718Wgairomrq for osteoporosisBone Density ScanCleveland Clinic [facility]odi HospitalBacteria identified in Urine by CultureCorey Hospital metabolic 1999 panel - Serum or PlasmaAdena Pike Medical CenterComprehenve metabolic 1999 panel - Serum or Plasma [facility] CenterComprehenve metabolic 1999 panel - Serum or Flower HospitalComprehenve metabolic 1999 panel - Serum or PlasmaAdena Pike Medical Center End: 38-99-9183ICV(NEURO/NI)EMG(NEURO/NI) EMG Routine Disturbance of skin sensation 1 Occurrences starting 12/10/2023 until [facility] Comment on above:1 Occurrences starting 12/10/2023 until 12/09/2024Glucose measurement estimated from glycated hemoglobinAdena Pike Medical Center Glucose measurement estimated from glycated hemoglobinAdena Pike Medical CenterHemoglobin A1c/Hemoglobin.total in [facility] Hemoglobin A1c/Hemoglobin.total in [facility] SystemInsulin [Units/volume] in Serum or [facility] HospitalInsulin [Units/volume] in Serum or [facility] HospitalInsulin [Units/volume] in Serum or F[facility] HospitalInsulin [Units/volume] in Serum or Flower HospitalInsulin [Units/volume] in [facility] or [facility]lower HospitalMR Lumbar spine WO [facility] HospitalNdsc wrst surg w/rls transvrs carpl ligmENDOSCOPIC RELEASE TUNNEL CARPAL Carpal tunnel syndrome, [facility] PLASTICS Z16Gpviyei EducationAnxiety in adults - ED discharge instructions [facility] Work Phone: Patient referralC[facility] Work Phone: SPINE INTERVENTION PROCEDURESPINE INTERVENTION PROCEDURE Procedures Routine Radiculopathy, lumbar region Spondylolisthesis of lumbar region Ordered: 4CWilson [facility] Hospital DJZ Work Phone: Comment on above:Ordered: 11/05/2023Urine culture [facility] Medical CenterUrine [facility] Urine cultureAdena Pike Medical Center End: 09-26-9392HG Cervical spine AP and Lateral and obliqueXR CERV OTHER 4V AP/LAT/OBL Radiology Routine Carpal tunnel syndrome of left wrist Left hand weakness 1 Occurrences starting 12/10/2023 until 5CWilson Memorial Hospital DJZ Work Phone: Comment on above:1 Occurrences starting 12/10/2023 until 01/08/2025XR Knee - left 3 ViewsXR knee 3 views left Imaging Routine Primary osteoarthritis of left knee 03/08/2024 7:56 AM [facility] [employer] Work Phone: XR Knee - right 3 ViewsXR knee 3 views right Imaging Routine Presence of right artificial knee joint 03/08/2024 7:57 AM [facility] Immunizations Immunization DateImmunizationNotesCare [id number] virus vaccine, unspecified formulationDO Mayco Velasquez Work Phone: [facility]10-28-2020influenza, seasonal, injectableDavid Girvin Other [facility]10-28-2020influenza, high dose seasonal, preservative-freeDavid Girvin Other [facility] [employer] Other [id number], high dose seasonal, preservative-freeDavid C Girvin Work Phone: [phone]-YjvcdLake Region Hospital 600 DO Work Phone: [phone], high dose seasonal, preservative-freeDavid C Girvin Work Phone: [facility]10-01-2019zoster vaccine, liveDavid C Girvin Work Phone: [phone]-JfrwcLake Region Hospital 600 DO Work Phone: [phone], high dose seasonal, preservative-freeDavid C Girvin Work Phone: [phone]-RvgnjLake Region Hospital 600 DO Work Phone: [phone], seasonal, injectableDavid Girvin Other [facility]09-26-2019zoster vaccine recombinantDavid Girvin Other [facility]09-17-2018influenza, high dose seasonal, preservative-freeDavid C Girvin Work Phone: [phone]-[facility]llgeL[facility] 600 DO Work Phone: [phone], seasonal, injectableDavid Girvin Other [facility]09-01-2018influenza virus vaccine, unspecified formulationDavid C Girvin Work Phone: [phone]-SrzsrLake Region Hospital 600 DO Work Phone: [phone], injectable, quadrivalent, preservative freeDavid C Girvin Work Phone: [facility]DvapbL[facility] 600 DO Work Phone: [phone], high dose seasonal, preservative-freeDavid C Girvin Work Phone: ZB-FuqwrL[facility] 600 DO Work Phone: [phone], seasonal, injectableDavid Girvin Other [facility]09-01-2017influenza virus vaccine, unspecified formulationDavid C Girvin Work Phone: IV-CwnezL[facility] 600 DO Work Phone: [phone] conjugate vaccine, 13 valent Mayco C Girvin Work Phone: [phone]-DwklrL[facility] 600 DO Work Phone: [phone], seasonal, injectableDavid Girvin Other [facility]10-01-2016influenza virus vaccine, unspecified formulationDavid C Girvin Work Phone: [phone]-RwgnkLake Region Hospital 600 DO Work Phone: [phone] polysaccharide vaccine, 23 valentDavid C Girvin Work Phone: PN-LcndsL[facility] 600 DO Work Phone: [phone] polysaccharide vaccine, 23 valentDavid C Girvin Work Phone: HY-JztsuL[facility] 600 DO Work Phone: [phone], seasonal, injectableDavid C Girvin Work Phone: UT-ZmiesL[facility] 600 DO Work Phone: [phone] A vaccine, adult dosageDavid C Ron Work Phone: [phone]-[place] [address] DO Work Phone: [phone] A vaccine, adult dosageDavid C Ron Work Phone: [phone]-OjosrLake Region Hospital 600 DO Work Phone: [phone] toxoid, reduced diphtheria toxoid, and acellular pertussis vaccine, adsorbedDavid C Ron Work Phone: [phone]-OgkxtMel[place] [address] DO Work Phone: [phone] capsular polysaccharide vaccine Mayco C Ron Work Phone: EF-[place]tg[place] [address] DO Work Phone: [phone] polysaccharide vaccine, 23 valentDavid C Ron Work Phone: XP-[place]bgmM[place] [address] DO Work Phone: [phone] vaccine, liveDavid C Ron Work Phone: [phone]-RtvzlLake Region Hospital 600 DO Work Phone: NEGATED: Highlighted row has not occurred!01-23-2021 influenza, seasonal, injectablePatient ObjectionDatramaine Velasquez Other [place] [employer] Other Payers DatePayer CategoryPayerPolicy [id number] 2022MedicaidAETNA MEDICARE ADVANTAGE [id number] 2022Medicare [id number] 2022Medicare (Managed Care) [id number] [id number] [id number] 2.16.840.1.008980.3.57[id number] 2.16.840.1.570543.3.57[id number] 2.16.840.1.576633.3.57[id number] 2.16.840.1.196427.3.57[id number] 2.16.840.1.210408.3.57[id number] 2.16.840.1.735584.3.57[id number] 2.16.840.1.533752.3.57[id number] 2.16.840.1.748778.3.57[id number] 2.16.840.1.358623.3.57[id number] 2.16.840.1.523962.3.57[id number] 2.16.840.1.464932.3.579.[id number] 2.16.840.1.8[id number] 2.16.840.1.930947.3.579.2.531 [id number] 2.16.840.1.3[id number] 2.16.840.1.8[id number] 2.16.840.1.036144.3.579.2.531 [id number] 2.16.840.1.616229.3.579.2.531 Social History DateTypeDetailFacilityTobaccoUnknown if ever smokedNokindred hospital [employer] Other Comment on above:deniesStart: 11-05-2023 End: 33-24-4758Yrz Assigned At [facility] [employer] Other Start: 11-05-2023 End: 89-89-7424Opgvs smokerNever smokerMelissa Ville [address] DO Work Phone: Start: 01-04-2019 End: 76-38-0329Jomywqe smoking status NHISNever smoked tobacco (finding) [facility] Hospitaltart: 21-12-8462Ent Assigned At BirthFecapital district psychiatric centere [facility] CenterTo[facility] smoking statusNo Smoking Status Entered [facility]To[facility] smoking status NHISTobacco smoking consumption unknownMercy Health St. Charles Hospitaltart: 92-41-3128Ana Assigned At BirthNot on fileMercy Health St. Charles Hospitaltart: 61-15-1039Phdixq identityIdentifies as female gender (finding)[facility] Hospitaltart: 34-63-1172Eztzrq orientationHeterosexual (finding)[facility] Hospitaltart: 01-28-2023 End: 49-85-2999Hxppmhm use and exposureSmokeless tobacco non-userNOPA Healthcare Start: 04-64-7196Brhlesvg Score (1-100), lower number is lower btbv20ICGD HealthcareStart: 76-03-6094Otbdprlaq beverage intakeLifetime non-drinker (finding)[facility] Work Phone: Start: 09-12-2023 End: 02-42-8915Xqywlwij to SARS-CoV-2 (event)Not sureCleveland Clinic [facility] General Lodi HospitalStart: 07-07-2023 End: 44-02-6654Ebjudtdix beverage intakeCurrent drinker of alcohol (finding)[facility] HospitalStart: 02-22-9365Sklaqxc Commentcaffeine intake : noneNOMS Healthcare Start: 33-42-1159Spdhsj orientationBisexual (finding)[facility] HealthcareStart: 04-08-2024 End: 14-50-6479PhmUedsfg (finding)[facility] Hospitaltart: 58-92-6920Nwwbnhb Commenta few times a week a shot of red hot wisky [facility] Hospitaltart: 60-71-3207Jjuirnv CommentrarelyCleveland Clinic [facility] Work Phone: Medical Equipment Procedure CodeEquipment CodeEquipment Original TextEquipment IdentifierDates Hammer toe correctionK-WIRE .045 STERILE 4INFDAStart: 87-26-1862Ldprqq toe correctionK-WIRE .045 STERILE 4INFDAStart: 21-38-5668Mtpbcu toe correctionK-WIRE .045 ST[place] 4INFDAStart: 14-45-8094Zlzuto toe correctionK-WIRE .045 [place] 4INFDAStart: 97-42-6289Qzogvi toe correctionK-WIRE .045 [place] 4INFDAStart: 95-52-6306Yrclgu toe correctionK-WIRE .045 [place] 4INFDAStart: 49-29-6551Kfckwt toe correctionK-WIRE .045 [place] 4INFDAStart: 85-45-4709Wrdagr toe correction K-WIRE .045 ST[place]ILE 4INFDAStart: 64-22-9011Jrscut toe correctionK-WIRE .045 STERILE 4INFDAStart: 75-16-0355Ocbdss toe correctionK-WIRE .045 STERILE 4INFDA Start: 42-92-0511Augqxr toe correctionK-WIRE .045 ST[place]ILE 4INFDAStart: 24-21-6331Ixubcx toe correctionK-WIRE .045 STERILE 4INFDAStart: 61-29-1573Vqxjcl toe correctionK-WIRE .045 STERILE 4INFDAStart: 46-45-3252Bfuxhn toe correction K-WIRE .045 STERILE 4INFDAStart: 79-03-8583Qblroz toe correctionK-WIRE .045 STERILE 4INFDAStart: 36-32-0957Rjbjgg toe correctionK-WIRE .045 STERILE 4INFDA Start: 31-66-8580Vzcyed toe correctionK-WIRE .045 STERILE 4INFDAStart: 61-54-6708Wyvndp toe correctionK-WIRE .045 STERILE 4INFDAStart: 24-30-9678Tbizmo toe correctionK-WIRE .045 STERILE 4INFDAStart: 34-95-1788Mvcbyy toe correction K-WIRE .045 STERILE 4INFDAStart: 32-78-8574Fnskoj toe correctionK-WIRE .045 STERILE 4INFDAStart: 03-18-2017{01}[id number]{17}276141{10}323VQ350SM FDA Start: 02-28-2019 Goals DatePatient GoalDesired Activity/StatePersonal health goal Functional Status LzbkRhsodtyeebNgujlgXdtqtxcl28-73-5686Raogwqkacb StatusN/AFBrown [facility] Clinical Notes 04-23-2010 to 01-02-2025 Note Date & OdwfRgynNbqbqrhf90-06-9064 History of Present illness Narrative* Carlita Patino, - 01/02/2025 2:30 PM EDT Images from the original note were not included. Suma Scott 1945 Suma Scott is a 79 y.o. female presents with chief complaint of Schedule colonoscopy HPI: HPI Suma presents to schedule a colonoscopy. She states her last colonoscopy was a long time ago andit was normal. She has no GI issues. She has never had a history of colon polyps SUBJECTIVE: MEDICATIONS: ALLERGIES Current Outpatient Medications Medication Instructions amitriptyline (Elavil) 25 MG tablet TAKE 1 TABLET AT BEDTIME amLODIPine (NORVASC) 5 mg, Oral, Every 24 hours Ascorbic Acid (VITAMIN C PO) Vitamin C aspirin 81 mg, Oral, Daily clonazePAM (KLONOPIN) 0.5 mg, Oral, 2 times daily, 1/2-1 tablet Coenzyme Q10 (COQ-10 PO) CoQ-10 Cymbalta 30 mg, Oral, 2 times daily gabapentin (Neurontin) 100 MG capsule TAKE 1 CAPSULE EVERY MORNING AND 2 CAPSULES AT BEDTIME, TAKE WITH THE 400MG TABLET gabapentin (Neurontin) 400 MG capsule TAKE 1 CAPSULE IN THE MORNING AND BEFORE BEDTIME HYDROcodone-acetaminophen ([place]) 5-325 MG tablet 1 tablet, Every 8 hours PRN hydroxychloroquine (PLAQUENIL) 200 mg, Oral, Daily indomethacin (INDOCIN) 25 mg, Oral, Daily RT lidocaine (Lidoderm) 5 % patch 1 patch, Apply externally, Daily, Apply for 12 hours daily magnesium oxide (MAG-OX) 400 mg, Oral, Daily RT meloxicam (MOBIC) 15 mg, Oral, Daily metoprolol tartrate (LOPRESSOR) 50 mg, Oral, Every 12 hours omeprazole (PRILOSEC) 40 mg, Oral, Daily before breakfast predniSONE (Deltasone) 20 MG tablet TAKE 2 TABLETS BY MOUTH ONCE DAILY simvastatin (ZOCOR) 20 mg, Oral, Nightly tiZANidine (Zanaflex) 4 MG tablet Take 1/2-1 by mouth twice a day valsartan (DIOVAN) 160 mg, Daily Allergies[1] PAST MEDICAL HISTORY: SOCIAL HISTORY SURGICAL HISTORY: Medical History[2] Social History[3] Surgical History[4] FAMILY HISTORY Family History[5] REVIEW OF SYMPTOMS: Review of Systems Constitutional: Negative for diaphoresis and unexpected weight change. HENT: Positive for hearing loss. Negative for tinnitus and voice change. Respiratory: Negative for shortness of breath. Cardiovascular: Negative for chest pain and palpitations. Musculoskeletal: Positive for arthralgias. Neurological: Negative for dizziness, seizures and headaches. Psychiatric/Behavioral: The patient is nervous/anxious. Depression & Anxiety All other systems reviewed and are negative. Hematological: Negative for adenopathy. Does not bruise/bleed easily. OBJECTIVE: Visit Vitals Smoking Status Never Physical Exam HENT: Head: Normocephalic. Cardiovascular: Rate and Rhythm: Normal rate and regular rhythm. Pulmonary: Effort: Pulmonary effort is normal. Breath sounds: Normal breath sounds. Abdominal: General: Abdomen is flat. Bowel sounds are normal. Palpations: Abdomen is soft. Skin: General: Skin is warm and dry. Neurological: Mental Status: She is alert. ASSESSMENT AND PLAN: Assessment/Plan Diagnoses and all orders for this visit: Special screening for malignant neoplasms, colon I explained the colonoscopy procedure in detail to the patient and discussed the risks and benefitsincluding but not exclusive of bleeding, and perforation. I asked the patient not to drive, operateany machinery or make any important decisions on the day of the procedure. She asked about the option of doing a Cologuard test and since she has never had a colon issue, no family history of colon cancer and no personal history of colon polyps she does qualify tor the test. She understands that if it is positive she will need the colonoscopy. We will order the Cologuard and call her with the results. [1] Allergies Allergen Reactions Lorazepam Other Reaction(s): extreme drowsiness [2] Past Medical History: Diagnosis Date Arthritis Peptic ulcer disease [3] Social History Tobacco Use Smoking status: Never Smokeless tobacco: Never Substance Use Topics Alcohol use: Yes Alcohol/week: 6.0 standard drinks of alcohol Types: 6 Standard drinks or equivalent per week Comment: caffeine intake : none Drug use: Never [4] Past Surgical History: Procedure Laterality Date GALLBLADDER SURGERY 2019 HYSTERECTOMY 1980 OTHER SURGICAL HISTORY 2018 hammer toe SHOULDER SURGERY 2016 TONSILLECTOMY TOTAL KNEE ARTHROPLASTY Right 02/28/2019 [facility] MTP TUBAL LIGATION 1974 [5] Family History Problem Relation Name Age of Onset Cancer Mother Heart disease Father Osteoarthritis Father Cancer Maternal Grandfather Cancer Paternal Grandmother Mental illness Paternal Grandfather Diabetes Other spouse Hypertension Other spouse Cancer Other spouse Cancer Daughter documented in this encounterResearch Belton HospitalFouuxycqoa04-35-8443 Evaluation note* Author Mayco Velasquez [facility] CenterAuthoredSeptember 2024 8:57amThe above note written by ___Iain Kenyon____ acting as human recorder, note dictated by Dr. Simmons .I performed the above HPI, ROS, and Examination. I formulated and dictated the treatment plan and was present for entire encounter. Mayco Velasquez D.O. [facility] Work Phone: 1(994) 505-856107-09-2025 History of Present illness Narrative* Deb Zamora MD - 09/21/2024 9:00 AM EDT HPI Patient is in the office for follow-up for hypertension hyperlipidemia. Since her last visit she lost 30 pounds and her diet with lifestyle modifications mostly focusing on low calorie diet. She maintains active lifestyle as well. Coagulations were provided and encouragement for more weight loss asshe remains overweight. She aims at taking her weight down another 15 to 20 pounds. The patient hadlab data recently including CBC and basic metabolic profile which I reviewed with her and her numbers are on target. She has occasional palpitations but has not been checking the heart rate. Were notcertain if these are events of SVT or not. I advised patient to have pulse oximetry device at home to check her pulse rate when this occurs and if the heart rate is exceeding 120 bpm utilize metoprolol tartrate which has been provided. Cardiovascular examination was normal today. Medications were reviewed and the patient have been tolerating her medication without a problem. Her rheumatoid arthritis seems to be under control on hydroxychloroquine. The patient lost her back in June 2024he was a patient of mine my condolences were provided ASSESSMENT AND PLAN: 1. Essential hypertension, under control, present medical therapy has been effective and well-tolerated. Patient follows low-salt diet and maintains active lifestyle. 2. Hyperlipidemia, on statin therapy with simvastatin. Patient follows low-dose fat diet and has been maintaining active lifestyle. 3. History of supraventricular tachycardia , presently managed on beta phil therapy. She has intermittent palpitations, whether this was SVT or not it is not confirmed, educated patient on utilization of pulse oximeter to assess the heart rate and parameters for treatment were provided 4. Overweight. The patient lost 30 pounds in the last year with lifestyle modifications, congratulations were provided and she is aiming at taking her weight down to 135 pounds which I find to be reasonable she did that with lifestyle modifications focusing on low calorie diet. 5. Rheumatoid arthritis on hydroxychloroquine stable ROS Review of system essentially normal Vitals: 09/21/24 0905 BP: 106/70 BP Location: Left arm Patient Position: Sitting Pulse: 60 Weight: 70.8 kg (156 lb) Height: (!) 1.549 m (5' 1 ) Objective Physical Exam Constitutional: Appearance: Normal appearance. HENT: Nose: Nose normal. Neck: Vascular: No carotid bruit. Cardiovascular: Rate and Rhythm: Normal rate. Pulses: Normal pulses. Heart sounds: Normal heart sounds. Pulmonary: Effort: Pulmonary effort is normal. Abdominal: General: Bowel sounds are normal. Palpations: Abdomen is soft. Musculoskeletal: General: Normal range of motion. Cervical back: Normal range of motion. Right lower leg: No edema. Left lower leg: No edema. Skin: General: Skin is warm and dry. Neurological: General: No focal deficit present. Mental Status: She is alert. Psychiatric: Mood and Affect: Mood normal. Behavior: Behavior normal. Thought Content: Thought content normal. Judgment: Judgment normal. Allergies Patient has no known allergies. Current Medications Current Outpatient Medications Medication Instructions ascorbic acid (Vitamin C) 100 mg tablet 1 tablet, Daily b complex vitamins (Vitamins B Complex) capsule 1 capsule, Daily CALCIUM CITRATE-VITAMIN D3 ORAL 1 tablet, Daily cholecalciferol (Vitamin D-3) 25 MCG (1000 UT) capsule 1 capsule, Daily clonazePAM (KLONOPIN) 1 mg, Nightly PRN coenzyme Q-10 100 mg capsule 1 capsule, Daily DULoxetine (Cymbalta) [address] capsule 1 capsule, Daily hydroxychloroquine (PLAQUENIL) 200 mg, 2 times daily magnesium oxide (Mag-Ox) 400 mg tablet 1 tablet, Daily metoprolol tartrate (LOPRESSOR) 50 mg, oral, 2 times daily omeprazole (PriLOSEC) [address] capsule 1 capsule, 2 times daily simvastatin (ZOCOR) 20 mg, oral, Daily sodium chloride 1,000 mg tablet 1 tablet, 2 times daily valsartan (DIOVAN) 160 mg, oral, Daily zinc gluconate 50 mg tablet 1 tablet, Daily Assessment/Plan 1. Essential hypertension Follow Up In Cardiology Follow Up In Cardiology metoprolol tartrate (Lopressor) 50 mg tablet valsartan (Diovan) 160 mg tablet 2. Mixed hyperlipidemia simvastatin (Zocor) 20 mg tablet 3. Supraventricular tachycardia 4. Never smoked tobacco 5. BMI 29.0-29.9,adult 6. Overweight Scribe Attestation By signing my name below, I, Desirae Gonzalez LPN, Scribe attest that this documentation has been prepared under the direction and in the presence of Deb Zamora MD. Provider Attestation - Scribe documentation All medical record entries made by the Scribe were at my direction and personally dictated by me. Ihave reviewed the chart and agree that the record accurately reflects my personal performance of the history, physical exam, discussion and plan. documented in this encounterC[facility] Clinic [facility] Work Phone: 1(216) 226-254107-09-2025 Instructions* Patient Instructions* Desirae Mora LPN - 09/21/2024 9:00 AM EDT Please bring all medicines, vitamins, and herbal supplements with you when you come to the office. Prescriptions will not be filled unless you are compliant with your follow up appointments or have a follow up appointment scheduled as per instruction of your physician. Refills should be requested at the time of your visit. BMI was above normal measurement. Current weight: 70.8 kg (156 lb) Weight change since last visit (-) denotes wt loss -30 lbs Weight loss needed to achieve BMI 25: 24 Lbs Weight loss needed to achieve BMI 30: -2.4 Lbs Provided instructions on dietary changes Provided instructions on exercise. Follow up one year Same medications documented in this encounterCleveland Clinic [facility] Work Phone: 1(195) 659-738206-18-2025 Evaluation note* Author Mayco Velasquez [facility] CenterDevan 2024 10:29amI performed the above HPI, ROS, and Examination. I formulated and dictated the treatment plan and was present for entire encounter. Mayco Velasquez D.O. [facility] Work Phone: 1(577) 445-948403-26-2025 NoteHNO ID: [id number] Author: MEJIA JOHN PA-C Service: ? Author Type: Physician [employer] Engineer Type: Progress Notes Filed: 06/08/2024 14:28 Note Text: Suma Scott underwent left endoscopic carpal tunnel release on 05/20/24. The patient returns today for follow-up. The patient reports no major issues since surgery. The numbness/tingling in the left hand had improved / resolved. On exam of the left hand, the incision was healed without evidence of infection. All sutures removed by family member. (+) left thumb opposition. Able to make a full composite left fist. ASSESSMENT: Post-operative state (primary encounter diagnosis) PLAN: We instructed the patient to start performing scar massage for 5-10 minutes each time, 3x per day. No lifting > 5 lbs using the operated hand for 2 more weeks. After that, there will be no restrictions, and the patient may use the operated hand as tolerated. Return to clinic as needed, or when the patient desires to have carpal tunnel decompression on the contralateral side. The patient is seen and examined by Mejia John PA-C and the following reflects his/her service. Scribed by Eric Calzada RN I agree with the Chief Complaint, ROS, and Past Histories independently gathered by the clinical account support rep and the remaining scribed note accurately describes my personal service to the patient. Mejia John PA-C June 08, 2024 2:28 PM This note was generated with voice recognition software and may contain errors, including spelling, grammar, syntax and misrecognition of what was dictated, that are not fully corrected.[facility] [id number] History of Present illness Narrative* Mejia John PA-C - 06/08/2024 2:00 PM EDT Suma Scott underwent left endoscopic carpal tunnel release on 05/20/24. The patient returns today for follow-up. The patient reports no major issues since surgery. The numbness/tingling in the left hand had improved / resolved. On exam of the left hand, the incision was healed without evidence of infection. All sutures removed by family member. (+) left thumb opposition. Able to make a full composite left fist. ASSESSMENT: Post-operative state (primary encounter diagnosis) PLAN: We instructed the patient to start performing scar massage for 5-10 minutes each time, 3x per day. No lifting > 5 lbs using the operated hand for 2 more weeks. After that, there will be no restrictions, and the patient may use the operated hand as tolerated. Return to clinic as needed, or when the patient desires to have carpal tunnel decompression on the contralateral side. The patient is seen and examined by Mejia John PA-C and the following reflects his/her service. Scribed by Eric Calzada RN I agree with the Chief Complaint, ROS, and Past Histories independently gathered by the clinical account support rep and the remaining scribed note accurately describes my personal service to the patient. Mejia John PA-C June 08, 2024 2:28 PM This note was generated with voice recognition software and may contain errors, including spelling,grammar, syntax and misrecognition of what was dictated, that are not fully corrected. documented in this encounterMer[facility]03-[facility] Telephone encounter Note * Telephone Encounter - Anabell Felder RN - 06/01/2024 2:11 PM EDT Returned patient call and assisted if I could schedule her a nursing visit to have sutures removed but informed patient she will need to continue to keep the follow up with Mejia in [place] to review the surgical site. Patient said she would not like to make two trips but also informed her waiting until the would be to long to keep the sutures in. Patient said she the surgical site looks good and her granddaughter is a nurse she will ask her if she is able to remove them or she would go to her local hospital to get them removed as she lives about an hour away. Let patient know she can upload a photo on MyChart once sutures are removed if she has any questions or concerns prior to her follow up appointment. [facility]03-19-2025 Miscellaneous Notes* Telephone Encounter - Anabell Felder RN - 06/01/2024 2:11 PM EDT Returned patient call and assisted if I could schedule her a nursing visit to have sutures removed but informed patient she will need to continue to keep the follow up with Mejia in [place] to review the surgical site. Patient said she would not like to make two trips but also informed her waiting until the would be to long to keep the sutures in. Patient said she the surgical site looks good and her granddaughter is a nurse she will ask her if she is able to remove them or she would go to her local hospital to get them removed as she lives about an hour away. Let patient know she can upload a photo on MyChart once sutures are removed if she has any questions or concerns prior to her follow up appointment. * Telephone Encounter - Tania Fernandez - 06/01/2024 12:16 PM EDT Please call patient. She said her appointment was cancelled for tomorrow. She is post op and needs stitches removed. She is rescheduled 06/08 in [place] but [place] to come to [place]. She is asking if it is safe to leave stitches in that long and can someone please call patient. [phone]. [facility] Telephone encounter Note * Telephone Encounter - Tania Fernandez - 06/01/2024 12:16 PM EDT Please call patient. She said her appointment was cancelled for tomorrow. She is post op and needs stitches removed. She is rescheduled 06/08 in [place] but prefers to come to [facility]. She is asking if it is safe to leave stitches in that long and can someone please call patient. [phone]. [facility]03-19-[facility] Evaluation note* Author Mayco Velasquez [facility] CenterAuthoredFostoria City Hospital 2024 9:04amThe above note written by ___Iain Kenyon____ acting as human recorder, note dictated by Dr. Simmons .I performed the above HPI, ROS, and Examination. I formulated and dictated the treatment plan and was present for entire encounter. Mayco Velasquez D[facility] Work Phone: 1(134) 534-498603-07-2025 Telephone encounter Note* Telephone Encounter - Rosa Maria Huang - 05/20/2024 11:39 AM EST Pharmacy notified. [facility] Miscellaneous Notes* Telephone Encounter - Rosa Maria Huang - 05/20/2024 11:39 AM EST Pharmacy notified. * Telephone Encounter - Rosa Maria Huang - 05/20/2024 11:16 AM EST Mejia Meraz MD You13 minutes ago (11:03 AM) Yes, please fill Percocet. Patient can use it as needed. * Telephone Encounter - Rosa Maria Huang - 05/20/2024 9:54 AM EST [facility] calling, they state that patient is already on Klonopin 0.5mg takes 1-2 at bedtime and 1 in the morning as needed. Do you still want them to fill the prescription for the percocet? Please advise [phone] documented [facility] Telephone encounter Note * Telephone Encounter - Rosa Maria Huang - 05/20/2024 11:16 AM EST Mejia Meraz MD You13 minutes ago (11:03 AM) Yes, please fill Percocet. Patient can use it as needed. [facility]03-07[facility] Telephone encounter Note* Telephone Encounter - Rosa Maria Huang - 05/20/2024 9:54 AM EST [facility] calling, they state that patient is already on Klonopin 0.5mg takes 1-2 at bedtime and 1 in the morning as needed. Do you still want them to fill the prescription for the percocet? Please advise [phone] [facility]03-07[facility]25 NoteHNO ID: [id number] Author: VAIBHAV DOWELL APRN.NOODLE MAKER Service: Anesthesiology Author Type: Nurse Credit Control Clerk Type: Anesthesia Procedure Notes Filed: 05/20/2024 07:57 Note Text: ANESTHESIOLOGY PROCEDURE NOTE Peripheral Nerve Block General Information Procedure Start Time/Medication Administration: 05/20/2024 7:47 AM Procedure End time: 05/20/2024 7:47 AM Patient location during procedure: OR Timeout Performed Pre-procedure: timeout performed Consent Obtained: Yes Patient identity confirmed: arm band and patient Reason for block: primary surgical anesthetic Staffing NOODLE MAKER: Vaibhav Dowell APRN.NOODLE MAKER Performed by: NOODLE MAKER Preparation Sterility Preparation: hand hygiene performed prior to procedure, surgical cap used, mask used, skin prep agent completely dried prior to procedure Site Prep: alcohol Pre-Procedure Neuro Exam Location: E Procedure Details Patient Position: supine Monitoring: Pulse OX, EKG and NIBP Block Type Upper Extremity: Leeann block Laterality: left Injection Technique: single-shot Ultrasound Guided: No Comments Lidocaine 0.5% 30ml Leeann Block IV SIGNATURE: Vaibhav Dowell APRN.NOODLE MAKER PATIENT NAME: Suma Scott DATE: May 20, 2024 TIME: 7:56 AM [facility]: [id number] Instructions* Patient Instructions* Vaibhav Rodriguez APRN.REFINERY OPERATOR VISBREAKING - 05/18/2024 9:48 AM EST PATIENT PREOPERATIVE INSTRUCTIONS Mejia Meraz has scheduled you for your procedure at this surgery center: [facility]: [phone] --[address] [address]. Please read below carefully for your personalized instructions. Dietary Restrictions: - No solid food after midnight. - You may have 12 ounces of clear liquids (water, clear juices such as apple juice or gatorade, carbonated beverages, clear tea, black coffee, jello) until 2 hours before scheduled arrival at facility. - Do not drink any alcohol after midnight the night before your surgery. - No Milk/Dairy - No Pulp Juices Medications: Unless instructed differently below, stay on all of your medications until your surgery. If you start any new medications after today's visit, please contact your surgeon. Pre-Surgery Med Instructions Medication Instructions ferrous sulfate 325 mg (65 mg iron) tablet Do not take the day of surgery ZOLMitriptan (ZOMIG) 2.5 mg tablet Do not take for 24 hours prior to surgery If you are currently using a pizd-uty-pdwr injectable or oral medication for diabetes or weight loss such as Dulaglutide (Trulicity), Exenatide (Byetta, Bydureon), Liraglutide (Victoza, Saxenda), Semaglutide (Ozempic, Wegovy, Rybelsus), or Tirzepatide (Mounjaro), the medicine should be stopped at least 7 days before surgery. These medicines can cause food to remain in your stomach for a very longtime and increase the risks from surgery and anesthesia. Not stopping the medication for a long enough time may result in your surgery being rescheduled. Blood Thinning Medications: - Hold NSAIDS (Ibuprofen, Advil, Aleve, Motrin, Celebrex, Mobic, etc.) 7 days before surgery, as directed by your surgeon. - Hold Aspirin 7 days before surgery, as directed by your surgeon. - Hold all herbals and dietary supplements 7 days before surgery. - You may take Tylenol (Acetaminophen) or any of your pain medications that do not contain aspirin or NSAIDS as needed. Important Reminders: - If you are prescribed inhalers for breathing, continue using them. - If you use CPAP/BIPAP, and will be staying over night, bring the machine with you to the surgery center. - If you use home O2, please bring with you to the surgery center - Please abstain from cannabis use for one week prior to surgery - Candy, mints, and tobacco products are NOT permitted the morning of surgery. - Hearing aids, dentures and glasses may be worn the morning of surgery. - NO jewelry, body piercings, makeup, hairpins or contacts are to be worn the day of surgery. If you develop symptoms such as a fever, cold, or flu, or have other changes to your health within TWO DAYS of scheduled surgery or the morning of surgery, please contact the surgery center above. Personal Belongings: -Please have photo ID and insurance cards. -If you do not have a copy of advance directives on file with us, please bring a copy with you on the day of surgery. - Leave ALL valuables and money at home or with family members. For Outpatient Procedures: - YOU MUST HAVE A RESPONSIBLE TANK HOOP BENDER TAKE YOU HOME. A ACCOUNT REVIEW SPECIALIST OR SALVAGE WORKER CANNOT BE MADE A RESPONSIBLE TANK HOOP BENDER. - We recommend that a responsible person stays with you overnight to take care of you. - You cannot stay in a hotel alone after outpatient surgery. You will not be permitted to have yoursurgery, if you do not have someone to take care of you. Arrival Time for Surgery: - The Surgery Center or hospital where you are having surgery will call the afternoon before surgery (or Thursday for Thursday surgery) with a scheduled arrival time. - If you have not heard by 4 pm, please contact the surgery center above. Please be aware that emergency situations arise, which may delay or change your surgical time. If this happens, we will notify you as soon as possible and regret any inconvenience. If you already have an Advance Directive, please fax a copy to [phone] or email to for it to be added to your chart. If you do not have an Advance Directive, you can find the appropriate form and more information at [email or web address]. We recommend that youcomplete the Advance Directive form found on the website and bring it with you the day of your surgery. It can be witnessed and scanned into your chart that day. documented in [facility] encounter[facility] History and physical note * Vaibhav Rodriguez APRN.CNP - 05/18/2024 9:40 AM EST Images from the original note were not included. HISTORY AND PHYSICAL EXAMINATION SERVICE DATE: 05/18/2024 SERVICE TIME: 9:47 AM PRIMARY CARE PHYSICIAN: Mayco Velasquez DO REASON FOR VISIT: Suma Scott is a 79 year old female who is scheduled for Left - ENDOSCOPIC RELEASE TUNNEL CARPAL at the request of Dr. Mejai Meraz for consultation. My final recommendation will be communicated back to the requesting physician by way of shared medical record or letter. Assessment Migraines Assessment: stable with current medication regimen Essential hypertension Assessment: stable and compliant with current medications Last 5 Encounter BP Readings: Date: BP: 05/18/2024 132/85 11/25/2023 122/87 08/17/2023 130/79 08/07/2022 124/71 Hyperlipidemia Assessment: stable with current medication regimen Paroxysmal SVT (supraventricular tachycardia) (HCC) Assessment: stable, asymptomatic, RRR today Follows with cardiology, Dr. Deb Zamora. Was optimized for knee surgery per 03/18/24 telephone encounter Gastroesophageal reflux disease Assessment: Managed and stable with current medication. Denies difficulty swallowing or any bleeding. Iron deficiency anemia Assessment: Stable. Denies bleeding. Labs 05/12/24 Hgb 13.5 Hct 39.1 Rheumatoid arthritis (HCC) Assessment: stable with current medication regimen Obesity (BMI 30.0-34.9) Assessment: Body mass index is 32.91 kg/m . ANESTHESIA FINDINGS: Intubation History: No history of difficult intubation Significant Anesthesia Considerations: none Airway History: No history of difficult airway Rosario Activity Status Index: METS: Walk indoors, such as around the house (1.75 METs) Do light work around the house, such as dusting or washing dishes (2.70 METs) Take care of self; that is eating, dressing, bathing, using the toilet (2.75 METs) Walk a block or two on level ground (2.75 METs) Do moderate work around the house, such as vacuuming, sweeping floors, or carrying in groceries (3.50 METs) Climb a flight of stairs or walk up a hill (5.50 METs) Participate in moderate recreational activites, such as golf, bowling, dancing, doubles tennis, or throwing a baseball or football (6.00 METs) Do heavy work around the house, such as scrubbing floors, lifting or moving heavy furniture (8.00 METs) DASI Score: 32.95 Patient denies any chest pain or undue shortness of breath with the above physical activity. Clinical Frailty Scale: 2. Well STOP-Bang Score: Snores loudly Has or is being treated for high blood pressure Patient over 50 years old Denies feeling tired, fatigued, or sleepy during the daytime Has not been observed to stop breathing or choking/gasping during sleep BMI less than or equal to 35 kg/m^2 Does not have a large neck Non-male patient STOP-Bang Score: 3 [id number] Score: Age: >=75 Sex: female CHF history: No Hypertension history: Yes Stroke/TIA/thromboembolism history: No Vascular disease history: No Diabetes history: No [id number] Score: 4 ARISCAT Score: Age: 51-80 Preoperative SpO2: >=96% Respiratory infection in the last month: No Duration of surgery: <2 hrs Emergency procedure: No ARISCAT Score: I - PHYSICAL EVALUATION AIRWAY Patient intubated: No. Tracheostomy tube not present Mallampati: II. TM distance: >3 FB. Neck ROM: full ROM without neurological symptoms. Mouth opening: adequate. Short neck: no. Thick neck: no Nicholson present: no Lip Bite Test: II Microretrognathia/Micronagthia/Recessed Chin: No DENTAL Dental findings: teeth intact. II - ANESTHESIA PLAN Anesthetic plan additional comments: *PACC/TCI - anesthesia choice. Beta Phil Monitoring Plan Post Procedure Analgesic Plan Prepared for surgery: This patient is optimally prepared for surgery. CONSULTS: Patient does not require consults for optimization at this time. The Following Tests/Procedures Have Been Initiated: Labs not indicated per PACC protocol, EKG not indicated per PACC protocol Planned Anesthetic: Per anesthesia choice Subjective CHIEF COMPLAINT: Carpal tunnel syndrome, left [G56.02] HPI: Patient is a 79 year old FEMALE presenting for pre-op evaluation for the above procedure. Patient denies any chest pain, shortness of breath, palpitations, fever/chills, nausea/vomiting, fatigue, or diarrhea. REVIEW OF SYSTEMS: PAIN ASSESSMENT: Pain Pain Level: 2 Pain Location: Hand-Left Description: Numbness, Tingling Duration Amount of Time: 10 Duration Units: Years Frequency: Continuous Intervention/Comfort measure: Medication General: No weight loss, malaise or fevers. Neuro: Postive for migraines, Negative for TIA's Seizures Respiratory: No history of current cough or dyspnea, or pneumonia in the past 6 weeks. No history of respiratory/pulmonary symptoms or problems. reports that she has never smoked. She has never used smokeless tobacco. Cardiovascular: Positive for: HTN, HLD, parox SVT, Negative for CAD, Chest Pain, CHF, DVT/PE GI: Positive for GERD, Negative for Nausea, Vomiting, Abdominal pain, Difficulty swallowing : No history of dysuria, frequency or incontinence,, stones or chronic kidney disease MILL TURNER: Negative for abnormal vaginal bleeding, abnormal vaginal discharge. : Denies, No LMP recorded. Patient has had a hysterectomy. Endocrine: no history of endocrine disorders Hematology: iron anemia Oncology: No history of CA metastasis, chemo within 30 days, or radiotherapy within 90 days. Has not lost 10% of body wt in 6 months. No history of oncological symptoms or problems. Implanted Devices: No Psych: Depression Marijuana use: Yes: gummy Musculoskeletal: rheumatoid arthritis, Body mass index is 32.91 kg/m . Skin: Negative for lesions, rash and itching. The patient has the following: ACTIVE PROBLEM LIST Bmi 35.0-35.9,Adult Depression Essential Hypertension Gastroesophageal Reflux Disease Iron Deficiency Anemia Migraines Hyperlipidemia Rheumatoid Arthritis (Hcc) Paroxysmal Svt (Supraventricular Tachycardia) (Hcc) Covid Immunization Dates Current Care Gaps Covid-19 Vaccine (2023- season) Never done No completion, postpone, frequency change, or communication history exists for this topic. History reviewed. No pertinent past medical history. PAST SURGICAL HISTORY Procedure Laterality Date PAST SURGICAL HISTORY OF hysterectomy PAST SURGICAL HISTORY OF Right right knee replacement PAST SURGICAL HISTORY OF Left shoulder surgery REMOVAL GALLBLADDER History reviewed. No pertinent family history. Social History Tobacco Use Smoking status: Never Smokeless tobacco: Never Vaping Use Vaping status: Never Used Substance Use Topics Alcohol use: Yes Comment: a few times a week a shot of red hot wisky Drug use: Yes Types: Marijuana Comment: edibles to help her sleep Prior to Admission medications as of 05/18/24 0997 Medication Sig Last Dose Taking hydrOXYchloroQUINE (PLAQUENIL) 200 mg tablet TAKE 2 TABLETS ONCE DAILY Yes gabapentin (NEURONTIN) 100 mg capsule Take 100 mg by mouth three times a day. Taking 500 mg in am and 600 mg in pm Yes clonazePAM (KLONOPIN) 0.5 mg tablet Take 0.5 mg by mouth as directed. 2 tabs at night Yes sodium chloride 1 gram tab Take 1 g by mouth twice daily. Yes amLODIPine (NORVASC) 5 mg tablet Take by mouth once daily. Yes simvastatin (ZOCOR) 20 mg tablet Take 20 mg by mouth daily at bedtime. Yes metoprolol tartrate, short acting, (LOPRESSOR) 50 mg tablet Take 50 mg by mouth twice daily. Yes ferrous sulfate 325 mg (65 mg iron) tablet Take 325 mg by mouth. Three times weekly Yes DULoxetine (CYMBALTA) 30 mg capsule Take 30 mg by mouth twice daily. Yes amitriptyline (ELAVIL) 25 mg tablet Take 25 mg by mouth daily at bedtime. Yes ZOLMitriptan (ZOMIG) 2.5 mg tablet Take 2.5 mg by mouth as needed. Yes omeprazole (PRILOSEC) 40 mg capsule Take 40 mg by mouth twice daily. Yes omega-3/dha/epa/dpa/fish oil (OMEGA-3 2100 ORAL) Take by mouth once daily. Yes cholecalciferol (VITAMIN D) 1,000 unit tab tablet Take 1,000 Units by mouth once daily. Yes vitamin b complex capsule Take 1 capsule by mouth once daily. Yes Ascorbic Acid (VITAMIN C) 500 mg chew Take 500 mg by mouth once daily. Yes No medication comments found. ALLERGIES No Known Allergies Objective PHYSICAL EXAM: VITALS: BP 132/85 Pulse 67 Temp (Src) 97.9 (Oral) Resp 16 Ht 5' 1 (1.55m) Wt 174 lb 2.6 oz (79.0kg) SpO2 97% BMI 32.92 kg/(m^2). General: Alert and oriented, No acute distress Skin: Normal color, no rash, no lesions. HEENT: EOM, pupils equal, round and reactive. Cardiovascular: Normal S1 & S2, no rubs, murmurs or gallops. No JVD. Pulse regular. Lungs: Normal breath sounds, no wheezes or crackles. Abdomen: Soft, non-tender, no rigidity. Extremities: No deformity, no edema or tenderness, no joint swelling or clubbing. Neurological: Normal cognition and motor skills. Pulses: Carotid and radial pulses normal +2. Diagnostic tests reviewed for today's visit: Lab Value Units Date High Low HB No results within date range. HCT No results within date range. WBC No results within date range. PLT No results within date range. NA No results within date range. K No results within date range. GLUC No results within date range. BUN No results within date range. CREAT No results within date range. PTSEC No results within date range. INR No results within date range. APTT No results within date range. ALT No results within date range. AST No results within date range. TBILI No results within date range. TSH No results within date range. No results found for: HBA1C Most recent EKG No results found for this or any previous visit (from the past 8760 hours). Instructions Given to Patient: Instructions located in the after visit summary. Patient given verbal and written preop instructions and voices comprehension and compliance. SIGNATURE: Vaibhav Rodriguez APRN.CNP PATIENT NAME: Suma Scott DATE: 05/18/2024 TIME: 12:21 PM [facility] History and physical note* Vaibhav Rodriguez APRN.CNP - 05/18/2024 9:40 AM EST Images from the original note were not included. HISTORY AND PHYSICAL EXAMINATION SERVICE DATE: 05/18/2024 SERVICE TIME: 9:47 AM PRIMARY CARE PHYSICIAN: Mayco Velasquez DO REASON FOR VISIT: Suma Scott is a 79 year old female who is scheduled for Left - ENDOSCOPIC RELEASE TUNNEL CARPAL at the request of Dr. Mejia Meraz for consultation. My final recommendation will be communicated back to the requesting physician by way of shared medical record or letter. Assessment Migraines Assessment: stable with current medication regimen Essential hypertension Assessment: stable and compliant with current medications Last 5 Encounter BP Readings: Date: BP: 05/18/2024 132/85 11/25/2023 122/87 08/17/2023 130/79 08/07/2022 124/71 Hyperlipidemia Assessment: stable with current medication regimen Paroxysmal SVT (supraventricular tachycardia) (HCC) Assessment: stable, asymptomatic, RRR today Follows with cardiology, Dr. Deb Zamora. Was optimized for knee surgery per 03/18/24 telephone encounter Gastroesophageal reflux disease Assessment: Managed and stable with current medication. Denies difficulty swallowing or any bleeding. Iron deficiency anemia Assessment: Stable. Denies bleeding. Labs 05/12/24 Hgb 13.5 Hct 39.1 Rheumatoid arthritis (HCC) Assessment: stable with current medication regimen Obesity (BMI 30.0-34.9) Assessment: Body mass index is 32.91 kg/m . ANESTHESIA FINDINGS: Intubation History: No history of difficult intubation Significant Anesthesia Considerations: none Airway History: No history of difficult airway Rosario Activity Status Index: METS: Walk indoors, such as around the house (1.75 METs) Do light work around the house, such as dusting or washing dishes (2.70 METs) Take care of self; that is eating, dressing, bathing, using the toilet (2.75 METs) Walk a block or two on level ground (2.75 METs) Do moderate work around the house, such as vacuuming, sweeping floors, or carrying in groceries (3.50 METs) Climb a flight of stairs or walk up a hill (5.50 METs) Participate in moderate recreational activites, such as golf, bowling, dancing, doubles tennis, or throwing a baseball or football (6.00 METs) Do heavy work around the house, such as scrubbing floors, lifting or moving heavy furniture (8.00 METs) DASI Score: 32.95 Patient denies any chest pain or undue shortness of breath with the above physical activity. Clinical Frailty Scale: 2. Well STOP-Bang Score: Snores loudly Has or is being treated for high blood pressure Patient over 50 years old Denies feeling tired, fatigued, or sleepy during the daytime Has not been observed to stop breathing or choking/gasping during sleep BMI less than or equal to 35 kg/m^2 Does not have a large neck Non-male patient STOP-Bang Score: 3 [id number] Score: Age: >=75 Sex: female CHF history: No Hypertension history: Yes Stroke/TIA/thromboembolism history: No Vascular disease history: No Diabetes history: No [id number] Score: 4 ARISCAT Score: Age: 51-80 Preoperative SpO2: >=96% Respiratory infection in the last month: No Duration of surgery: <2 hrs Emergency procedure: No ARISCAT Score: I - PHYSICAL EVALUATION AIRWAY Patient intubated: No. Tracheostomy tube not present Mallampati: II. TM distance: >3 FB. Neck ROM: full ROM without neurological symptoms. Mouth opening: adequate. Short neck: no. Thick neck: no Nicholson present: no Lip Bite Test: II Microretrognathia/Micronagthia/Recessed Chin: No DENTAL Dental findings: teeth intact. II - ANESTHESIA PLAN Anesthetic plan additional comments: *PACC/TCI - anesthesia choice. Beta Phil Monitoring Plan Post Procedure Analgesic Plan Prepared for surgery: This patient is optimally prepared for surgery. CONSULTS: Patient does not require consults for optimization at this time. The Following Tests/Procedures Have Been Initiated: Labs not indicated per PACC protocol, EKG not indicated per PACC protocol Planned Anesthetic: Per anesthesia choice Subjective CHIEF COMPLAINT: Carpal tunnel syndrome, left [G56.02] HPI: Patient is a 79 year old FEMALE presenting for pre-op evaluation for the above procedure. Patient denies any chest pain, shortness of breath, palpitations, fever/chills, nausea/vomiting, fatigue, or diarrhea. REVIEW OF SYSTEMS: PAIN ASSESSMENT: Pain Pain Level: 2 Pain Location: Hand-Left Description: Numbness, Tingling Duration Amount of Time: 10 Duration Units: Years Frequency: Continuous Intervention/Comfort measure: Medication General: No weight loss, malaise or fevers. Neuro: Postive for migraines, Negative for TIA's Seizures Respiratory: No history of current cough or dyspnea, or pneumonia in the past 6 weeks. No history of respiratory/pulmonary symptoms or problems. reports that she has never smoked. She has never used smokeless tobacco. Cardiovascular: Positive for: HTN, HLD, parox SVT, Negative for CAD, Chest Pain, CHF, DVT/PE GI: Positive for GERD, Negative for Nausea, Vomiting, Abdominal pain, Difficulty swallowing : No history of dysuria, frequency or incontinence,, stones or chronic kidney disease MILL TURNER: Negative for abnormal vaginal bleeding, abnormal vaginal discharge. : Denies, No LMP recorded. Patient has had a hysterectomy. Endocrine: no history of endocrine disorders Hematology: iron anemia Oncology: No history of CA metastasis, chemo within 30 days, or radiotherapy within 90 days. Has not lost 10% of body wt in 6 months. No history of oncological symptoms or problems. Implanted Devices: No Psych: Depression Marijuana use: Yes: gummy Musculoskeletal: rheumatoid arthritis, Body mass index is 32.91 kg/m . Skin: Negative for lesions, rash and itching. The patient has the following: ACTIVE PROBLEM LIST Bmi 35.0-35.9,Adult Depression Essential Hypertension Gastroesophageal Reflux Disease Iron Deficiency Anemia Migraines Hyperlipidemia Rheumatoid Arthritis (Hcc) Paroxysmal Svt (Supraventricular Tachycardia) (Hcc) Covid Immunization Dates Current Care Gaps Covid-19 Vaccine ( season) Never done No completion, postpone, frequency change, or communication history exists for this topic. History reviewed. No pertinent past medical history. PAST SURGICAL HISTORY Procedure Laterality Date PAST SURGICAL HISTORY OF hysterectomy PAST SURGICAL HISTORY OF Right right knee replacement PAST SURGICAL HISTORY OF Left shoulder surgery REMOVAL GALLBLADDER History reviewed. No pertinent family history. Social History Tobacco Use Smoking status: Never Smokeless tobacco: Never Vaping Use Vaping status: Never Used Substance Use Topics Alcohol use: Yes Comment: a few times a week a shot of red hot wisky Drug use: Yes Types: Marijuana Comment: edibles to help her sleep Prior to Admission medications as of 05/18/24 8999 Medication Sig Last Dose Taking hydrOXYchloroQUINE (PLAQUENIL) 200 mg tablet TAKE 2 TABLETS ONCE DAILY Yes gabapentin (NEURONTIN) 100 mg capsule Take 100 mg by mouth three times a day. Taking 500 mg in am and 600 mg in pm Yes clonazePAM (KLONOPIN) 0.5 mg tablet Take 0.5 mg by mouth as directed. 2 tabs at night Yes sodium chloride 1 gram tab Take 1 g by mouth twice daily. Yes amLODIPine (NORVASC) 5 mg tablet Take by mouth once daily. Yes simvastatin (ZOCOR) 20 mg tablet Take 20 mg by mouth daily at bedtime. Yes metoprolol tartrate, short acting, (LOPRESSOR) 50 mg tablet Take 50 mg by mouth twice daily. Yes ferrous sulfate 325 mg (65 mg iron) tablet Take 325 mg by mouth. Three times weekly Yes DULoxetine (CYMBALTA) 30 mg capsule Take 30 mg by mouth twice daily. Yes amitriptyline (ELAVIL) 25 mg tablet Take 25 mg by mouth daily at bedtime. Yes ZOLMitriptan (ZOMIG) 2.5 mg tablet Take 2.5 mg by mouth as needed. Yes omeprazole (PRILOSEC) 40 mg capsule Take 40 mg by mouth twice daily. Yes omega-3/dha/epa/dpa/fish oil (OMEGA-3 2100 ORAL) Take by mouth once daily. Yes cholecalciferol (VITAMIN D) 1,000 unit tab tablet Take 1,000 Units by mouth once daily. Yes vitamin b complex capsule Take 1 capsule by mouth once daily. Yes Ascorbic Acid (VITAMIN C) 500 mg chew Take 500 mg by mouth once daily. Yes No medication comments found. ALLERGIES No Known Allergies Objective PHYSICAL EXAM: VITALS: BP 132/85 Pulse 67 Temp (Src) 97.9 (Oral) Resp 16 Ht 5' 1 (1.55m) Wt 174 lb 2.6 oz (79.0kg) SpO2 97% BMI 32.92 kg/(m^2). General: Alert and oriented, No acute distress Skin: Normal color, no rash, no lesions. HEENT: EOM, pupils equal, round and reactive. Cardiovascular: Normal S1 & S2, no rubs, murmurs or gallops. No JVD. Pulse regular. Lungs: Normal breath sounds, no wheezes or crackles. Abdomen: Soft, non-tender, no rigidity. Extremities: No deformity, no edema or tenderness, no joint swelling or clubbing. Neurological: Normal cognition and motor skills. Pulses: Carotid and radial pulses normal +2. Diagnostic tests reviewed for today's visit: Lab Value Units Date High Low HB No results within date range. HCT No results within date range. WBC No results within date range. PLT No results within date range. NA No results within date range. K No results within date range. GLUC No results within date range. BUN No results within date range. CREAT No results within date range. PTSEC No results within date range. INR No results within date range. APTT No results within date range. ALT No results within date range. AST No results within date range. TBILI No results within date range. TSH No results within date range. No results found for: HBA1C Most recent EKG No results found for this or any previous visit (from the past 8760 hours). Instructions Given to Patient: Instructions located in the after visit summary. Patient given verbal and written preop instructions and voices comprehension and compliance. SIGNATURE: Vaibhav Rodriguez APRN.CNP PATIENT NAME: Suma Scott DATE: 05/18/2024 TIME: 12:21 PM [facility] Evaluation note* Diagnosis Onset Date Resolution Status Admit [facility]:58amCarpal tunnel syndrome of left wristacuteF[facility] 2024 7:58amFatty liveracute[facility] 2024 7:58amHyperglycemiaacute[facility] 2024 7:58amHyperlipidemiaacute[facility] 2024 7:58amHypertensionacute[facility] 2024 7:58amInsomniaacute[facility] 2024 7:58amIron deficiency anemiaacute June 01, 2024 7:58amRestless leg syndromeacuteF[facility] 2024 7:58amSVT (supraventricular tachycardia)[facility] 2024 7:58amVitamin D deficiency [facility] 2024 7:58am [facility] Work Phone: [phone]) 634-726101-24-2025 History of Present illness Narrative* Mejia John PA-C - 04/08/2024 11:00 AM EST Images from the original note were not included. [facility] New Patient Evaluation Consulting Provider: Sarbjit Andrea [id number] [id number] Consultation requested by Sarbjit Andrea for an opinion regarding the evaluation and treatment ofCarpal tunnel syndrome, unspecified laterality [G56.00] . My final recommendations will be communicated back to the requesting provider by way of shared medical record or letter via [place] mail. Chief Complaint: Numbness in left hand History: Patient is a 79 year old female; she denies an acute injury event. right hand dominant. Date of injury/duration of pain: 5 years or more Location: Left index, middle and ring finger Intensity: Moderate, Severe Quality: Shooting numbness and tingling , loss of strength intermittently Job Related: No Symptoms with the following activities: Increased activity and Sleep The following things help the symptoms: gabapentin, braces in the past, tylenol or ibuprofen Brief Overview: Ms. Scott is a right hand dominant 79 year old female who presents with a chief complaint of numbness of the left index, middle and ring fingers with increase in weakness to the left hand. The patient reports (+) night awakening. The patient has tried wearing wrist splint, without much improvement of symptoms. Patient had EMG completed 12/22/2023 Social History: Tobacco Use: Never Work: retired Exercise: none Patient History No past medical history on file. No past surgical history on file. hydrOXYchloroQUINE (PLAQUENIL) 200 mg tablet TAKE 2 TABLETS ONCE DAILY gabapentin (NEURONTIN) 100 mg capsule Take 100 mg by mouth three times a day. Taking 500 mg in am and 600 mg in pm clonazePAM (KLONOPIN) 0.5 mg tablet Take 0.5 mg by mouth as directed. 2 tabs at night aspirin, enteric coated (ASPIRIN, ENTERIC COATED) 81 mg EC tablet Take 81 mg by mouth once daily. sodium chloride 1 gram tab Take 1 g by mouth twice daily. amLODIPine (NORVASC) 5 mg tablet Take by mouth once daily. simvastatin (ZOCOR) 20 mg tablet Take 20 mg by mouth daily at bedtime. metoprolol tartrate, short acting, (LOPRESSOR) 50 mg tablet Take 50 mg by mouth twice daily. ferrous sulfate 325 mg (65 mg iron) tablet Take 325 mg by mouth. Three times weekly DULoxetine (CYMBALTA) 30 mg capsule Take 30 mg by mouth twice daily. amitriptyline (ELAVIL) 25 mg tablet Take 25 mg by mouth daily at bedtime. ZOLMitriptan (ZOMIG) 2.5 mg tablet Take 2.5 mg by mouth as needed. omeprazole (PRILOSEC) 40 mg capsule Take 40 mg by mouth twice daily. omega-3/dha/epa/dpa/fish oil (OMEGA-3 2100 ORAL) Take by mouth once daily. cholecalciferol (VITAMIN D) 1,000 unit tab tablet Take 1,000 Units by mouth once daily. vitamin b complex capsule Take 1 capsule by mouth once daily. Ascorbic Acid (VITAMIN C) 500 mg chew Take 500 mg by mouth once daily. Allergies: ALLERGIES No Known Allergies Allergies, medications, past surgical history and past medical history were reviewed per this encounter. RADIOLOGY: IMAGING: Final results and radiologist's interpretation, available in the [facility] health record. Images were reviewed with the patient/family members in the office today. My personal interpretation of the performed imaging is no acute abnormality. EMG 12/22/2023 Study Interpretation Extensive electrodiagnostic study of the left upper extremity was performed. The study performed showed electrophysiologic evidence consistent with severe median neuropathy at or distal to the left wrist, as can be seen in the setting of carpal tunnel syndrome, without active denervation of assessed thenar musculature. The study performed showed no evidence for ulnar entrapment neuropathy or cervical radiculopathy inthe left upper extremity. Physical Examination: Exam of the left upper limb revealed: (+) Tinel sign over carpal tunnel. (+) Phalen's and Durken's test. (+) thumb opposition without thenar atrophy. (-) tenderness to palpation over volar forearm near pronator teres. (-) numbness in median nerve distribution with compression of pronator teres. (-) Tinel sign along median nerve distribution over pronator teres region. (-) Tinel sign along median nerve distribution with passive supination of forearm. (-) decreased sensation over thenar eminence. (-) Tinel sign along median nerve distribution with resisted FDS flexion of middle finger. Assessment: Carpal tunnel syndrome, left (primary encounter diagnosis) Plan: We discussed with Ms. Scott the diagnosis and proposed treatment options. We discussed the surgical treatment options for carpal tunnel decompression. One option is to perform open carpal tunnel release, which involves making an incision on the volarsurface of the hand, between the thenar and hypothenar region. This can be done under local anesthesia, and can successfully decompress the carpal tunnel all of the time. The main disadvantage is a scar in the volar hand that can be painful and sensitive for a while, and the possibility of a wound dehiscence if the hand is over-used in the post-operative period. The other option is to perform endoscopic carpal tunnel release, which involves using an endoscope to decompress the carpal tunnel through a small incision in the distal forearm. The benefit of this approach is to avoid making an incision on the volar surface of the hand, with less scar tenderness.However, in 5% of the patient, the endoscopic approach will need to be converted to the open approach due to inability to clearly visualize the undersurface of the transverse carpal ligament using the endoscope (usually due to excessive tenosynovitis in the wrist, or scarring from prior infection),which needs to be completely divided to decompress the carpal tunnel. We also discussed that although the endoscopic approach has faster recovery within the first 3 months, the long-term outcome after 1 year is equivalent with both the open and endoscopic approach. The patient desires to proceed with endoscopic carpal tunnel release, with possible conversion to the open approach if good visualization cannot be achieved using the endoscope. In addition, we discussed performing flexor tendon synovial biopsy at the time of carpal tunnel surgery to rule out amyloidosis if indicated during the case. Surgical consent was signed. Case request was submitted. The documentation for this note was completed by Krystina Lees RN acting as scribe for Mejia John PA-C. April 08, 2024 10:32 AM. I agree with the Chief Complaint, ROS, and Past Histories independently gathered by the clinical account support rep and the remaining scribed note accurately describes my personal service to the patient. Orthopaedic Medical Decision Making (MDM) Complexity of problems: Chronic condition with exacerbation or progression, Complexity of data: 2 unique test results reviewed, Risk: Decision on minor surgery w/ risk factors, Level of MDM: Moderate (4) Mejia John PA-C April 08, 2024 10:24 AM This note was generated with voice recognition software and may contain errors, including spelling,grammar, syntax and misrecognition of what was dictated, that are not fully corrected. documented in [facility]25 NoteHNO ID: [id number] Author: KRYSTINA LEES RN Service: ? Author Type: Physician [employer] Engineer Type: Progress Notes Filed: 04/08/2024 10:32 Note Text: [facility] New Patient Evaluation Consulting Provider: Sarbjit Andrea [id number] [phone] Consultation requested by Sarbjit Andrea for an opinion regarding the evaluation and treatment of Carpal tunnel syndrome, unspecified laterality [G56.00] . My final recommendations will be communicated back to the requesting provider by way of shared medical record or letter via [place] mail. Chief Complaint: Numbness in left hand History: Patient is a 79 year old female; she denies an acute injury event. right hand dominant. Date of injury/duration of pain: 5 years or more Location: Left index, middle and ring finger Intensity: Moderate, Severe Quality: Shooting numbness and tingling , loss of strength intermittently Job Related: No Symptoms with the following activities: Increased activity and Sleep The following things help the symptoms: gabapentin, braces in the past, tylenol or ibuprofen Brief Overview: Ms. Scott is a right hand dominant 79 year old female who presents with a chief complaint of numbness of the left index, middle and ring fingers with increase in weakness to the left hand. The patient reports (+) night awakening. The patient has tried wearing wrist splint, without much improvement of symptoms. Patient had EMG completed 12/22/2023 Social History: Tobacco Use: Never Work: retired Exercise: none Patient History No past medical history on file. No past surgical history on file. hydrOXYchloroQUINE (PLAQUENIL) 200 mg tablet TAKE 2 TABLETS ONCE DAILY gabapentin (NEURONTIN) 100 mg capsule Take 100 mg by mouth three times a day. Taking 500 mg in am and 600 mg in pm clonazePAM (KLONOPIN) 0.5 mg tablet Take 0.5 mg by mouth as directed. 2 tabs at night aspirin, enteric coated (ASPIRIN, ENTERIC COATED) 81 mg EC tablet Take 81 mg by mouth once daily. sodium chloride 1 gram tab Take 1 g by mouth twice daily. amLODIPine (NORVASC) 5 mg tablet Take by mouth once daily. simvastatin (ZOCOR) 20 mg tablet Take 20 mg by mouth daily at bedtime. metoprolol tartrate, short acting, (LOPRESSOR) 50 mg tablet Take 50 mg by mouth twice daily. ferrous sulfate 325 mg (65 mg iron) tablet Take 325 mg by mouth. Three times weekly DULoxetine (CYMBALTA) 30 mg capsule Take 30 mg by mouth twice daily. amitriptyline (ELAVIL) 25 mg tablet Take 25 mg by mouth daily at bedtime. ZOLMitriptan (ZOMIG) 2.5 mg tablet Take 2.5 mg by mouth as needed. omeprazole (PRILOSEC) 40 mg capsule Take 40 mg by mouth twice daily. omega-3/dha/epa/dpa/fish oil (OMEGA-3 2100 ORAL) Take by mouth once daily. cholecalciferol (VITAMIN D) 1,000 unit tab tablet Take 1,000 Units by mouth once daily. vitamin b complex capsule Take 1 capsule by mouth once daily. Ascorbic Acid (VITAMIN C) 500 mg chew Take 500 mg by mouth once daily. Allergies: ALLERGIES No Known Allergies Allergies, medications, past surgical history and past medical history were reviewed per this encounter. RADIOLOGY: IMAGING: Final results and radiologist's interpretation, available in the [facility] health record. Images were reviewed with the patient/family members in the office today. My personal interpretation of the performed imaging is no acute abnormality. EMG 12/22/2023 Study Interpretation Extensive electrodiagnostic study of the left upper extremity was performed. The study performed showed electrophysiologic evidence consistent with severe median neuropathy at or distal to the left wrist, as can be seen in the setting of carpal tunnel syndrome, without active denervation of assessed thenar musculature. The study performed showed no evidence for ulnar entrapment neuropathy or cervical radiculopathy in the left upper extremity. Physical Examination: Exam of the left upper limb revealed: (+) Tinel sign over carpal tunnel. (+) Phalen's and Durken's test. (+) thumb opposition without thenar atrophy. (-) tenderness to palpation over volar forearm near pronator teres. (-) numbness in median nerve distribution with compression of pronator teres. (-) Tinel sign along median nerve distribution over pronator teres region. (-) Tinel sign along median nerve distribution with passive supination of forearm. (-) decreased sensation over thenar eminence. (-) Tinel sign along median nerve distribution with resisted FDS flexion of middle finger. Assessment: Carpal tunnel syndrome, left (primary encounter diagnosis) Plan: We discussed with Ms. Scott the diagnosis and proposed treatment options. We discussed the surgical treatment options for carpal tunnel decompression. One option is to perform open carpal tunnel release, which involves making an incision on the volar surface of the hand, between the (more content not included)...[facility]01-24-2025 Note* Addendum Note - Krystina Lees RN - 04/08/2024 10:32 AM ESTAddended by: KRYSTINA LEES on: 04/08/2024 10:32 AM Modules accepted: Orders [facility]01-24-[facility] Miscellaneous Notes* Addendum Note - Krystina Lees RN - 04/08/2024 10:32 AM ESTAddended by: KRYSTINA LEES on: 04/08/2024 10:32 AM Modules accepted: Orders documented in this encounterMer[facility]01-24-2025 NoteHNO ID: [id number] Author: LANRE ARSHAD RT(Ash) Service: ? Author Type: Technologist Type: Progress Notes Filed: 04/08/2024 09:57 Note Text: Radiology Service Progress Note PATIENT NAME: Suma Scott DATE OF SERVICE: April 08, 2024 TIME: 9:57 AM PATIENT IDENTITY VERIFICATION COMPLETED USING TWO (2) IDENTIFIERS: Name and Date of confirmed by patient verbally. FALL SCREENING: Has the patient had 2 falls in the last year or 1 fall with injury or currently using an Ambulatory Assistive Device (Walker, Cane, Wheelchair, Crutches, etc.)? No PATIENT GENDER DATA: Assigned female at . status: : No status: N/A PATIENT RELEVANT IMPLANT DATA REVIEWED: Not Applicable PATIENT PRESENTS WITH AN IMPLANTABLE OR ATTACHED HEALTH SPECIALIST: No RADIOLOGY DEPARTMENT: General X-ray: Exam(s) Completed: Upper Extremity X-Ray(s): Wrist, bilateral and Hand, bilateral PERIPHERAL IV DATA: Not applicable SIGNED BY: MARIO PichardoR) April 08, 2024 9:57 [facility]01-21-2025 Telephone encounter Note* Telephone Encounter - Lanette Marte - 04/05/2024 3:45 PM EST Patient called and has an appt on Thursday, is suppose to have an xray before. She is asking if you can put an order in for her entire arm. Her entire arm has been killing her from the shoulder all theway down.. does not know what she did, would like you to check that out also. [facility]01-[facility] Miscellaneous Notes* Telephone Encounter - Lanette Marte - 04/05/2024 3:45 PM EST Patient called and has an appt on Thursday, is suppose to have an xray before. She is asking if you can put an order in for her entire arm. Her entire arm has been killing her from the shoulder all theway down.. does not know what she did, would like you to check that out also. [facility] in this [facility]Mer[facility]12-[facility]24 History of Present illness Narrative* Shelly Rosa - 03/08/2024 8:30 AM EST Images from the original note were not included. Suma Scott is a 79 y.o. female presents with chief complaint of left knee pain and swelling, follow up right total knee arthroplasty. HPI: Suma is here for left knee pain of which she went to [facility] on 03-01-2024. Subsequently at some point woke up on the floor. She does not recall the actual fall. She had no symptoms or issues prior. It sounds like she rolled out of bed. She had pain and swelling to the knee, difficulty gettingup. She went to the Emergency Room and had x-rays. She was provided a brace, but she does not like pressure on it. She has tried sleeves and braces in the past with her other knee. She has pain and swelling of the left knee particularly more pain. She has discomfort. She does have a history of cardiac arrhythmia with SVT. She does see cardiology and has an upcoming appointment. Her daughter is present. She has tried some ice and heat. She has tried Tylenol. She has been busy helping her husbandwho had a stroke after his Covid vaccination. She is doing well with the right knee replacement that is approximately six years old. SUBJECTIVE: MEDICATIONS: Current Outpatient Medications Medication Instructions amitriptyline (Elavil) 25 MG tablet Take 25 mg by mouth at bedtime. amLODIPine (NORVASC) 5 mg, Oral, Every 24 hours Ascorbic Acid (VITAMIN C PO) Vitamin C aspirin 81 mg, Oral, Daily clonazePAM (KLONOPIN) 0.5 mg, Oral, 2 times daily, 1/2-1 tablet Coenzyme Q10 (COQ-10 PO) CoQ-10 Cymbalta 30 mg, Oral, 2 times daily gabapentin (Neurontin) 100 MG capsule TAKE 1 CAPSULE EVERY MORNING AND 2 CAPSULES AT BEDTIME, TAKE WITH THE 400MG TABLET gabapentin (Neurontin) 400 MG capsule TAKE 1 CAPSULE IN THE MORNING AND BEFORE BEDTIME HYDROcodone-acetaminophen ([place]) 5-325 MG tablet 1 tablet, Every 8 hours PRN hydroxychloroquine (PLAQUENIL) 200 mg, Oral, Daily indomethacin (INDOCIN) 25 mg, Oral, Daily RT lidocaine (Lidoderm) 5 % patch 1 patch, Apply externally, Daily, Apply for 12 hours daily magnesium oxide (MAG-OX) 400 mg, Oral, Daily RT meloxicam (MOBIC) 15 mg, Oral, Daily metoprolol tartrate (LOPRESSOR) 50 mg, Oral, Every 12 hours omeprazole (PRILOSEC) 40 mg, Oral, Daily before breakfast predniSONE (Deltasone) 20 MG tablet TAKE 2 TABLETS BY MOUTH ONCE DAILY simvastatin (ZOCOR) 20 mg, Oral, Nightly tiZANidine (Zanaflex) 4 MG tablet Take 1/2-1 by mouth twice a day ALLERGIES: Allergies Allergen Reactions Lorazepam Other Reaction(s): extreme drowsiness SURGICAL HISTORY: Past Surgical History: Procedure Laterality Date GALLBLADDER SURGERY 2019 HYSTERECTOMY 1980 OTHER SURGICAL HISTORY 2018 hammer toe SHOULDER SURGERY 2016 TONSILLECTOMY TOTAL KNEE ARTHROPLASTY Right 02/28/2019 [facility] [place] MTP TUBAL LIGATION 1974 FAMILY HISTORY: Family History Problem Relation Name Age of Onset Cancer Mother Heart disease Father Osteoarthritis Father Cancer Maternal Grandfather Cancer Paternal Grandmother Mental illness Paternal Grandfather Diabetes Other spouse Hypertension Other spouse Cancer Other spouse Cancer Daughter SOCIAL HISTORY: Social History Tobacco Use Smoking status: Never Smokeless tobacco: Never Substance Use Topics Alcohol use: Yes Alcohol/week: 6.0 standard drinks of alcohol Types: 6 Standard drinks or equivalent per week Comment: caffeine intake : none Drug use: Never Depression: Not on file REVIEW OF SYMPTOMS: The review of systems, history and current medications list are all reviewed today. OBJECTIVE: Visit Vitals Ht 5' 1 Wt 172 lb BMI 32.50 kg/m Smoking Status Never BSA 1.83 m Physical Exam On physical exam, the right knee incision is clean, dry and intact. She has full extension. Flexion is to 118 degrees. Patellofemoral tracking is midline. No significant crepitance or pain. Good quad tone and strength. No instability. The left knee has mild swelling. There is no warmth or erythema. No rash or infectious process. There is no instability of the collateral complex. Patellar grind test is positive. Apprehension is positive with patellofemoral joint with near full extension. She will flex the knee to approximately 105 degrees. Gait is stiff and antalgic, unassisted. The calf is supple and she is neurovascularly intact distally. There is no sign of rash, infection or DVT. X-rays and imaging permanently saved to the patient's record were reviewed bilateral AP, lateral and sunrise views weight bearing films taken in the [place] office shows end stage degenerative changes of the patellofemoral joint. She has some lateral dysplasia as well as lateral overhang. This is consistent with grade IV degenerative changes. The right knee total knee replacement is visualized ingood position and alignment. There is no sign of loosening or catastrophic failure. ASSESSMENT AND PLAN: Assessment/Plan Left knee end stage osteoarthritis with antalgic gait. Recent exacerbation with fall out of bed. Follow up right total knee arthroplasty. The nature of the findings were discussed at length. Ice, Tylenol and topicals were all reviewed. 1cc of cortisone (3 mg of Betamethasone sodium phosphate with 3 mg of Betamethasone acetate) and 1 cc of 1% plain Lidocaine was injected to the left knee under seated sterile approach. The patient tolerated the injection well. We will continue with home exercise program and I will see her back in four weeks. She will notify cardiology for appointment just for preoperative check to see if she is stable for consideration of anesthesia and surgery. We will further discuss this with potential time of surgery in the future. Ice, Tylenol and topicals, conservative management were all discussed. Antibiotic prophylaxis for dental or invasive work was reviewed for her right knee. She voices verbal understanding. She is discharged in stable condition. Numerous questions were answered. The patient was seen and examined. From the time of check in, nurse triage, vital signs, x-ray, x-ray interpretation, review of systems, comprehensive history and physical exam as well as setting up treatment plan and further management took 50 minutes. Cosigned by Vaibhav Cabrera DO at 03/14/2024 12:45 PM EST documented in this encounterResearch Belton [id number] Evaluation note* Author Mayco Velasquez [facility] CenterAuthoredDeceer 2023 8:43amThe above note written by ___Iain Kenyon____ acting as human recorder, note dictated by Dr. Simmons .I performed the above HPI, ROS, and Examination. I formulated and dictated the treatment plan and was present for entire encounter. Mayco Velasquez D.O. [facility] Work Phone: [phone] 402-198910-08-2024 History of Present illness Narrative* Brijesh Zhao, RT(R) - 12/22/2023 9:40 AM EDT Radiology Service Progress Note PATIENT NAME: Suma Scott DATE OF SERVICE: December 22, 2023 TIME: 9:29 AM PATIENT IDENTITY VERIFICATION COMPLETED USING TWO (2) IDENTIFIERS: Name and Date of confirmedby patient verbally and Name and Date of confirmed by identification band. FALL SCREENING: Has the patient had 2 falls in the last year or 1 fall with injury or currently using an Ambulatory Assistive Device (Walker, Cane, Wheelchair, Crutches, etc.)? No PATIENT GENDER DATA: Female. status: : No status: N/A PATIENT RELEVANT IMPLANT DATA REVIEWED: Not Applicable PATIENT PRESENTS WITH AN IMPLANTABLE OR ATTACHED HEALTH SPECIALIST: No RADIOLOGY DEPARTMENT: General X-ray: Exam(s) Completed: Spine X-Ray(s): Cervical AP / LAT / OBL PERIPHERAL IV DATA: Not applicable SIGNED BY: JORGE Ann) December 22, 2023 9:29 AM documented in this encounterMercy [facility]10-08-2024 NoteHNO ID: [id number] Author: BRIJESH ZHAO RT(R) Service: Radiology Author Type: Precipitator Type: Progress Notes Filed: 12/22/2023 09:30 Note Text: Radiology Service Progress Note PATIENT NAME: Suma Scott DATE OF SERVICE: December 22, 2023 TIME: 9:29 AM PATIENT IDENTITY VERIFICATION COMPLETED USING TWO (2) IDENTIFIERS: Name and Date of confirmed by patient verbally and Name and Date of confirmed by identification band. FALL SCREENING: Has the patient had 2 falls in the last year or 1 fall with injury or currently using an Ambulatory Assistive Device (Walker, Cane, Wheelchair, Crutches, etc.)? No PATIENT GENDER DATA: Female. status: : No status: N/A PATIENT RELEVANT IMPLANT DATA REVIEWED: Not Applicable PATIENT PRESENTS WITH AN IMPLANTABLE OR ATTACHED HEALTH SPECIALIST: No RADIOLOGY DEPARTMENT: General X-ray: Exam(s) Completed: Spine X-Ray(s): Cervical AP / LAT / OBL PERIPHERAL IV DATA: Not applicable SIGNED BY: RT Seth(Ash) December 22, 2023 9:29 [facility] [id number] NoteHNO ID: [id number] Author: PATRICK BOJORQUEZ MD Service: ? Author Type: Physician Type: Progress Notes Filed: 12/22/2023 09:07 Note Text: UNIVERSAL PROTOCOL / SAFETY CHECKLIST Procedure to be Performed: EMG Sign In: A Moment of CARE was completed. Personnel directly involved with the procedure wore the appropriate PPE (Personal Protective Equipment). Patient/Surrogate Stated/Verified: PATIENT VERIFIED(optional for EMERGENT procedures): Patient name, Date of , Relevant allergies, and The intended procedure Time Out Communication: Intended patient and procedure match the source documents. Correct side/site marked and visible. Sign Out: SIGN OUT (optional for EMERGENT procedures): Post-procedure follow-up management communicated and Plan of Care Visit completed when applicable. Anushka Hawk manager animal Tiera Bojorquez MD (sign out)[facility]10-08-[facility] History of Present illness Narrative* Patrick Bojorquez MD - 12/22/2023 8:07 AM EDT UNIVERSAL PROTOCOL / SAFETY CHECKLIST Procedure to be Performed: EMG Sign In: A Moment of CARE was completed. Personnel directly involved with the procedure wore the appropriate PPE (Personal Protective Equipment). Patient/Surrogate Stated/Verified: PATIENT VERIFIED(optional for EMERGENT procedures): Patient name, Date of , Relevant allergies, and The intended procedure Time Out Communication: Intended patient and procedure match the source documents. Correct side/site marked and visible. Sign Out: SIGN OUT (optional for EMERGENT procedures): Post-procedure follow-up management communicated and Plan of Care Visit completed when applicable. Anushka Hawk manager animal Tiera Bojorquez MD (sign out) documented in this encounterMercy Health West Hospital09-26-2024 NoteHNO ID: [id number] Author: SARBJIT ANDREA, DO Service: ? Author Type: Physician Type: Progress Notes Filed: 12/16/2023 00:04 Note Text: [facility] December 10, 2023 CC: Lumbar spine pain left lower limb pain SUBJECTIVE: Patient returns today after undergoing left S1 transforaminal epidural steroid injection. Reports significant improvement in her symptoms. Reports she is 100% better. Did not have any significant concerns with procedure. Reports 2 attempts were made to perform the injection but ultimately saw significant improvement within days. Patient comes in today with violaceous bruising across her right jaw. Recent tooth extraction. In addition would like to discuss her left-sided finger numbness. Since last visit: She continues to deny bowel/bladder incontinence, denies fever, denies night pain, denies unintentional weight loss, denies clumsiness of hands or dropping things, denies clumsiness of feet, tripping or falling. Denies any constitutional or myelopathic symptomatology. No interval change in PMHX, PSHX, Allergies, FamHx or ROS. PMH:No past medical history on file. PSH:No past surgical history on file. Social history: Social History Tobacco Use Smoking status: Never Smokeless tobacco: Never Fam history: No family history on file. Reviewed and updated with patient. ALLERGIES: Patient has no known allergies. DATA REVIEW: Review of fluoroscopic imaging shows good epidural flow at the S1 level with greater amount traveling anteriorly. Subsequent injection of injectate and then repositioning of needle slightly more laterally in the foramen with repeat injection of contrast which shows even better epidural flow. OBJECTIVE: Vital Signs: There were no vitals taken for this visit. ASSESSMENT: General:Patient in no apparent distress, afebrile, well appearing Lungs:No labored breathing, symetric chest excursion, no tachypnia Heart:No lower limb edema, pulses palpable and symetric dorsalis pedis and radial, no cyanosis Abdominal:Non distended abdomen Neuro:Strength intact bilateral lower limbs Sensation intact bilateral lower limbs Strength intact in bilateral upper limbs except for severe weakness in left APB and mild to moderate weakness in right APB, sensory deficits in the C6 and C7 dermatomes on the left but much more pronounced in the C7 dermatome versus median nerve distribution Muscular:Tenderness to palpation of bilateral Lumbar paraspinal muscles Skin:Head, neck, trunk, and extremities dry, intact and without lesions. DX: Lumbar radiculopathy (primary encounter diagnosis) Carpal tunnel syndrome of left wrist Left hand weakness Disturbance of skin sensation PLAN: 1) Patient 100% better since undergoing S1 transforaminal injection very happy with results. Will contact our office if her symptoms worsen 2) Patient with left APB weakness dense numbness in the first second and third digits of her left hand. More prominent findings in the C7 distribution. In light of this advised patient would recommend EMG of the left upper limb reports many years ago had undergone EMG which showed carpal tunnel syndrome. 3) Patient was also scheduled for cervical x-ray. I will contact her if there are any concerning findings. Sarbjit Andrea DO, MPH Staff Physician [facility] This document has been created with the use of voice recognition technology. It may contain inaccuracies: misspellings, inaccurate syntax or word sense that escaped review.[facility]09-26-2024 History of Present illness Narrative* Sarbjit Andrea Jerry, DO - 12/10/2023 10:13 AM EDT Follow-up Visit [facility] December 10, 2023 CC: Lumbar spine pain left lower limb pain SUBJECTIVE: Patient returns today after undergoing left S1 transforaminal epidural steroid injection. Reports significant improvement in her symptoms. Reports she is 100% better. Did not have any significant concerns with procedure. Reports 2 attempts were made to perform the injection but ultimately saw significant improvement within days. Patient comes in today with violaceous bruising across her right jaw. Recent tooth extraction. In addition would like to discuss her left-sided finger numbness. Since last visit: She continues to deny bowel/bladder incontinence, denies fever, denies night pain, denies unintentional weight loss, denies clumsiness of hands or dropping things, denies clumsiness of feet, trippingor falling. Denies any constitutional or myelopathic symptomatology. No interval change in PMHX, PSHX, Allergies, FamHx or ROS. PMH:No past medical history on file. PSH:No past surgical history on file. Social history: Social History Tobacco Use Smoking status: Never Smokeless tobacco: Never Fam history: No family history on file. Reviewed and updated with patient. ALLERGIES: Patient has no known allergies. DATA REVIEW: Review of fluoroscopic imaging shows good epidural flow at the S1 level with greater amount traveling anteriorly. Subsequent injection of injectate and then repositioning of needle slightly more laterally in the foramen with repeat injection of contrast which shows even better epidural flow. OBJECTIVE: Vital Signs: There were no vitals taken for this visit. ASSESSMENT: General:Patient in no apparent distress, afebrile, well appearing Lungs:No labored breathing, symetric chest excursion, no tachypnia Heart:No lower limb edema, pulses palpable and symetric dorsalis pedis and radial, no cyanosis Abdominal:Non distended abdomen Neuro:Strength intact bilateral lower limbs Sensation intact bilateral lower limbs Strength intact in bilateral upper limbs except for severe weakness in left APB and mild to moderate weakness in right APB, sensory deficits in the C6 and C7 dermatomes on the left but much more pronounced in the C7 dermatome versus median nerve distribution Muscular:Tenderness to palpation of bilateral Lumbar paraspinal muscles Skin:Head, neck, trunk, and extremities dry, intact and without lesions. DX: Lumbar radiculopathy (primary encounter diagnosis) Carpal tunnel syndrome of left wrist Left hand weakness Disturbance of skin sensation PLAN: 1) Patient 100% better since undergoing S1 transforaminal injection very happy with results. Will contact our office if her symptoms worsen 2) Patient with left APB weakness dense numbness in the first second and third digits of her left hand. More prominent findings in the C7 distribution. In light of this advised patient would recommend EMG of the left upper limb reports many years ago had undergone EMG which showed carpal tunnel syndrome. 3) Patient was also scheduled for cervical x-ray. I will contact her if there are any concerning findings. Sarbjit Andrea DO, MPH Staff Physician [facility] This document has been created with the use of voice recognition technology. It may contain inaccuracies: misspellings, inaccurate syntax or word sense that escaped review. documented in this encounterMercy [facility] Hospital09-19-2024 Telephone encounter Note * Telephone Encounter - Zaira Mills LPN - 12/03/2023 2:16 PM EDT Post Spine Injection phone call: Patient on 12/03/2023 Patient denies fever, chills, new headache, prolonged numbness nor exacerbation of pain status. Injection site(s) flat and dry with no redness nor drainage. Pre Procedure Pain level: 2 Immediately Post Procedure 0 Pain level today 0 (0 = none - 10 = extreme) Percentage of pain relief: 80-90% Patient verbalized understanding that it may take up to 14 days to realize full benefit of spinal injection. Follow up as indicated on order: Ordering Provider Via Office Visit: 2-4 weeks. Patient reminded tobring pain diary to follow appointment. If follow up appointment indicated on order, patient encouraged to schedule follow up appointment 2-4 weeks post procedure by calling [phone] Patient does not have any questions or concerns. Patient will call office with any questions or concerns. Zaira Mills LPN [facility]09-19-2024 Miscellaneous Notes* Telephone Encounter - Zaiar Mills LPN - 12/03/2023 2:16 PM EDT Post Spine Injection phone call: Patient on 12/03/2023 Patient denies fever, chills, new headache, prolonged numbness nor exacerbation of pain status. Injection site(s) flat and dry with no redness nor drainage. Pre Procedure Pain level: 2 Immediately Post Procedure 0 Pain level today 0 (0 = none - 10 = extreme) Percentage of pain relief: 80-90% Patient verbalized understanding that it may take up to 14 days to realize full benefit of spinal injection. Follow up as indicated on order: Ordering Provider Via Office Visit: 2-4 weeks. Patient reminded tobring pain diary to follow appointment. If follow up appointment indicated on order, patient encouraged to schedule follow up appointment 2-4 weeks post procedure by calling [phone] Patient does not have any questions or concerns. Patient will call office with any questions or concerns. Zaira Mills LPN documented in this encounterMercy Health [facility] Hospital09-16-2024 Telephone encounter Note * Telephone Encounter - Candis Carrasco MA - 11/30/2023 8:39 AM EDT Pharmacy electronically requests the following refill(s) Requested Prescriptions Pending Prescriptions Disp Refills hydrOXYchloroQUINE (PLAQUENIL) 200 mg tablet [Pharmacy Med Name: HYDROXYCHLOR TAB 200MG] 180 tablet1 Sig: TAKE 2 TABLETS ONCE DAILY Candis Carrasco MA Most recent Rheumatology visit: 08/17/2023 (with Belinda Weaver) Last Bone Density on file: None on file Rheumatology Care Team: None on file Recent Office Visits - This Specialty None Upcoming Rheumatology Appointments - Next 365 Days No appointments to display Last Ophthalmology Check for Plaquenil (Hydroxychloroquine) Last OCT Macula Exam No resulted procedures found. Last Visual Field Exam No resulted procedures found. CBC: None on file in the last 6 months Vitamin D: None on file in the last 6 months LFT: Hepatic Function: Creatinine: None on file in the last 6 months ESR/CRP: None on file in the last 6 months Uric Acid: None on file in the last 6 months Open Standing (Multiple Instance) Lab Orders None Open Future (Single Instance) Lab Orders None [facility]09-16-[facility] Miscellaneous Notes* Telephone Encounter - Candis Carrasco MA - 11/30/2023 8:39 AM EDT Pharmacy electronically requests the following refill(s) Requested Prescriptions Pending Prescriptions Disp Refills hydrOXYchloroQUINE (PLAQUENIL) 200 mg tablet [Pharmacy Med Name: HYDROXYCHLOR TAB 200MG] 180 tablet1 Sig: TAKE 2 TABLETS ONCE DAILY Candis Carrasco MA Most recent Rheumatology visit: 08/17/2023 (with Belinda Weaver) Last Bone Density on file: None on file Rheumatology Care Team: None on file Recent Office Visits - This Specialty None Upcoming Rheumatology Appointments - Next 365 Days No appointments to display Last Ophthalmology Check for Plaquenil (Hydroxychloroquine) Last OCT Macula Exam No resulted procedures found. Last Visual Field Exam No resulted procedures found. CBC: None on file in the last 6 months Vitamin D: None on file in the last 6 months LFT: Hepatic Function: Creatinine: None on file in the last 6 months ESR/CRP: None on file in the last 6 months Uric Acid: None on file in the last 6 months Open Standing (Multiple Instance) Lab Orders None Open Future (Single Instance) Lab Orders None documented in this encounterMercy Health West Hospital09-11-2024 NoteHNO ID: [id number] Author: ROMAN WAGGONER DO Service: ? Author Type: Physician Type: Procedures Filed: 11/25/2023 14:48 Note Text: PROCEDURE REPORT Surgery/Procedure Date: November 25, 2023 Interventionalist: Roman Waggoner DO Procedure(s): Left S1 transforaminal epidural steroid injection Pre-Op/Pre-Procedure Diagnosis: Lumbar radiculopathy Post-Op Diagnosis: same SUBJECTIVE: Suma Scott is a 78 year old female, who presents to the [facility] S70 for a left S1 transforaminal epidural steroid injection. 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 78 year old female who presents with pain located left sided radicular pain down left posterior leg . Pain today is 2/10. I have reviewed the nurses notes and am aware of the patient's history. OBJECTIVE: Vital signs are documented in the paper chart prior to and throughout the procedure. INFORMED CONSENT: Risks, benefits, alternatives and personnel discussed with patient who consents to proceed. A formal sign in and timeout with team members and patient present were performed prior to procedure start/delivery of medication. PROCEDURE: Procedure: Left S1 Transforaminal Epidural Steroid Injection Suma Scott was transferred to the Block Room. Time out was performed. After placement of routine monitors (blood pressure, pulse oximetry, and heart rate monitored by dedicated nurse), the procedure was performed in the usual manner. Anesthesia: Local only Start time: 1409 Stop time: 1430 Fluoroscopy time: 65 seconds Estimated blood loss: none Level: left S1 Technique: Patient positioned prone. Procedure area was prepped with Betadine and draped with sterile coverings. An oblique approach was used with C-arm guidance. The skin was anesthetized with 1% lidocaine. A #22 gauge short-bevel spinal needle was inserted to the proper location within the intervertebral foramen using intermittent fluoroscopy. Position was confirmed with iohexol contrast under live fluoroscopy. Needle position was verified in two views and selective nerve root contrast pattern was visualized and recorded. The needle was first retracted slightly, which did not result in more epidural flow of contrast. Then the needle was advanced superomedially, but patient felt a twinge of pain down her leg and then vascular return was seen in the needle. The needle was retracted out of the foramen. Then attempted to reinsert the needle, but could not gain access to the foramen this time. The needle was removed. Adequatehemostasis was achieved. A new site was marked using a slightly different angle of approach. The skin was anesthetized with 1% lidocaine. #22 gauge spinal needle was inserted to the proper location within the intervertebral foramen using intermittent fluoroscopy. Position was confirmed with iohexol contrast under live fluoroscopy. Needle position was verified in two views and selective nerve root contrast pattern was visualized and recorded. There was no vascular contrast flow pattern. 7.5 mg of dexamethasone and 2.25 cc of lidocaine 1% was injected. The spinal needle was then removed. Adequate hemostasis was obtained at the needle puncture site. The patient's back was cleaned and a sterile dressing was applied. Patient tolerated the procedure well and was taken conscious and in stable condition to the recovery room for observation. No complications as a result of this procedure. Post procedure precautions and instructions were reviewed with the patient who verbalized understanding. I/primary surgeon/proceduralist performed the procedure with the fellow. I was assisted by Bharath Vizcaino DO and was present at bedside throughout entire procedure. Tasks performed included steering needle to appropriate location, administering contrast, and injecting medication. No complications were encountered. Estimated blood loss: none Specimens: none Implanted devices: none Drains: none Post procedure physical exam unchanged from pre procedure. Significant findings: MRI lumbar spine images were not available to review prior to this procedure. First trial - no tilt, oblique 10 left Second trial - cephalad 5, oblique 5 left Selective nerve root contrast pattern. ASSESSMENT: Pre Procedure diagnosis: Lumbar radiculopathy Post-Procedure diagnosis: same Pre Procedure Pain Level: same as above Post Procedure Pain Level: as documented in nursing notes and paper chart Purposeful response to verbal or tactile stimulation: Yes PLAN: Post-procedure instructions reviewed with patient. Patient is to complete post-procedure pain diary and follow up with the ordering provider. Patient is to contact our office with any question or if any side effects are noted. Suma Scott was transferred to the recovery room and is to be discharged home in stable condition. [facility] Procedure note* Roman Waggoner DO - 11/25/2023 2:35 PM EDT PROCEDURE REPORT Surgery/Procedure Date: November 25, 2023 Interventionalist: Roman Waggoner DO Procedure(s): Left S1 transforaminal epidural steroid injection Pre-Op/Pre-Procedure Diagnosis: Lumbar radiculopathy Post-Op Diagnosis: same SUBJECTIVE: Suma Scott is a 78 year old female, who presents to the [facility] S70 for aleft S1 transforaminal epidural steroid injection. 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 78 year old female who presents with pain located left sided radicular pain down left posterior leg. Pain today is 2/10. I have reviewed the nurses notes and am aware of the patient's history. OBJECTIVE: Vital signs are documented in the paper chart prior to and throughout the procedure. INFORMED CONSENT: Risks, benefits, alternatives and personnel discussed with patient who consents to proceed. A formal sign in and timeout with team members and patient present were performed prior to procedure start/delivery of medication. PROCEDURE: Procedure: Left S1 Transforaminal Epidural Steroid Injection Suma Scott was transferred to the Block Room. Time out was performed. After placement of routine monitors (blood pressure, pulse oximetry, and heart rate monitored by dedicated nurse), the procedure was performed in the usual manner. Anesthesia: Local only Start time: 1409 Stop time: 1430 Fluoroscopy time: 65 seconds Estimated blood loss: none Level: left S1 Technique: Patient positioned prone. Procedure area was prepped with Betadine and draped with sterile coverings. An oblique approach was used with C-arm guidance. The skin was anesthetized with 1% lidocaine. A #22 gauge short-bevel spinal needle was inserted to the proper location within the intervertebral foramen using intermittent fluoroscopy. Position was confirmed with iohexol contrast under live fluoroscopy. Needle position was verified in two views and selective nerve root contrast pattern was visualized and recorded. The needle was first retracted slightly, which did not result in moreepidural flow of contrast. Then the needle was advanced superomedially, but patient felt a twinge of pain down her leg and then vascular return was seen in the needle. The needle was retracted out ofthe foramen. Then attempted to reinsert the needle, but could not gain access to the foramen this time. The needle was removed. Adequate hemostasis was achieved. A new site was marked using a slightly different angle of approach. The skin was anesthetized with 1% lidocaine. #22 gauge spinal needle was inserted to the proper location within the intervertebral foramen using intermittent fluoroscopy. Position was confirmed with iohexol contrast under live fluor oscopy. Needle position was verified in two views and selective nerve root contrast pattern was visualized and recorded. There was no vascular contrast flow pattern. 7.5 mg of dexamethasone and 2.25 cc of lidocaine 1% was injected. The spinal needle was then removed. Adequate hemostasis was obtained at the needle puncture site. The patient's back was cleaned and a sterile dressing was applied. Patient tolerated the procedure well and was taken conscious and in stable condition to the recovery room for observation. No complications as a result of this procedure. Post procedure precautions and instructions were reviewed with the patient who verbalized understanding. I/primary surgeon/proceduralist performed the procedure with the fellow. I was assisted by Bharath Vizcaino DO and was present at bedside throughout entire procedure. Tasks performed included steering needle to appropriate location, administering contrast, and injecting medication. No complications were encountered. Estimated blood loss: none Specimens: none Implanted devices: none Drains: none Post procedure physical exam unchanged from pre procedure. Significant findings: MRI lumbar spine images were not available to review prior to this procedure. First trial - no tilt, oblique 10 left Second trial - cephalad 5, oblique 5 left Selective nerve root contrast pattern. ASSESSMENT: Pre Procedure diagnosis: Lumbar radiculopathy Post-Procedure diagnosis: same Pre Procedure Pain Level: same as above Post Procedure Pain Level: as documented in nursing notes and paper chart Purposeful response to verbal or tactile stimulation: Yes PLAN: Post-procedure instructions reviewed with patient. Patient is to complete post-procedure pain diary and follow up with the ordering provider. Patient is to contact our office with any question or if any side effects are noted. Suma Scott was transferred to the recovery room and is to be discharged home in stable condition. Roman Waggoner DO [facility] Work Phone: 1(283) 388-347109-11-2024 Procedure note* Roman Waggoner DO - 11/25/2023 2:35 PM EDT PROCEDURE REPORT Surgery/Procedure Date: November 25, 2023 Interventionalist: Roman Waggoner DO Procedure(s): Left S1 transforaminal epidural steroid injection Pre-Op/Pre-Procedure Diagnosis: Lumbar radiculopathy Post-Op Diagnosis: same SUBJECTIVE: Suma Scott is a 78 year old female, who presents to [facility] for aleft S1 transforaminal epidural steroid injection. 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 78 year old female who presents with pain located left sided radicular pain down left posterior leg. Pain today is 2/10. I have reviewed the nurses notes and am aware of the patient's history. OBJECTIVE: Vital signs are documented in the paper chart prior to and throughout the procedure. INFORMED CONSENT: Risks, benefits, alternatives and personnel discussed with patient who consents to proceed. A formal sign in and timeout with team members and patient present were performed prior to procedure start/delivery of medication. PROCEDURE: Procedure: Left S1 Transforaminal Epidural Steroid Injection Suma Scott was transferred to the Block Room. Time out was performed. After placement of routine monitors (blood pressure, pulse oximetry, and heart rate monitored by dedicated nurse), the procedure was performed in the usual manner. Anesthesia: Local only Start time: 1409 Stop time: 1430 Fluoroscopy time: 65 seconds Estimated blood loss: none Level: left S1 Technique: Patient positioned prone. Procedure area was prepped with Betadine and draped with sterile coverings. An oblique approach was used with C-arm guidance. The skin was anesthetized with 1% lidocaine. A #22 gauge short-bevel spinal needle was inserted to the proper location within the intervertebral foramen using intermittent fluoroscopy. Position was confirmed with iohexol contrast under live fluoroscopy. Needle position was verified in two views and selective nerve root contrast pattern was visualized and recorded. The needle was first retracted slightly, which did not result in moreepidural flow of contrast. Then the needle was advanced superomedially, but patient felt a twinge of pain down her leg and then vascular return was seen in the needle. The needle was retracted out ofthe foramen. Then attempted to reinsert the needle, but could not gain access to the foramen this time. The needle was removed. Adequate hemostasis was achieved. A new site was marked using a slightly different angle of approach. The skin was anesthetized with 1% lidocaine. #22 gauge spinal needle was inserted to the proper location within the intervertebral foramen using intermittent fluoroscopy. Position was confirmed with iohexol contrast under live fluor oscopy. Needle position was verified in two views and selective nerve root contrast pattern was visualized and recorded. There was no vascular contrast flow pattern. 7.5 mg of dexamethasone and 2.25 cc of lidocaine 1% was injected. The spinal needle was then removed. Adequate hemostasis was obtained at the needle puncture site. The patient's back was cleaned and a sterile dressing was applied. Patient tolerated the procedure well and was taken conscious and in stable condition to the recovery room for observation. No complications as a result of this procedure. Post procedure precautions and instructions were reviewed with the patient who verbalized understanding. I/primary surgeon/proceduralist performed the procedure with the fellow. I was assisted by Bharath Vizcaino DO and was present at bedside throughout entire procedure. Tasks performed included steering needle to appropriate location, administering contrast, and injecting medication. No complications were encountered. Estimated blood loss: none Specimens: none Implanted devices: none Drains: none Post procedure physical exam unchanged from pre procedure. Significant findings: MRI lumbar spine images were not available to review prior to this procedure. First trial - no tilt, oblique 10 left Second trial - cephalad 5, oblique 5 left Selective nerve root contrast pattern. ASSESSMENT: Pre Procedure diagnosis: Lumbar radiculopathy Post-Procedure diagnosis: same Pre Procedure Pain Level: same as above Post Procedure Pain Level: as documented in nursing notes and paper chart Purposeful response to verbal or tactile stimulation: Yes PLAN: Post-procedure instructions reviewed with patient. Patient is to complete post-procedure pain diary and follow up with the ordering provider. Patient is to contact our office with any question or if any side effects are noted. Suma Scott was transferred to the recovery room and is to be discharged home in stable condition. Roman Waggoner DO documented [facility] History and physical note * Bharath Vizcaino DO - 11/25/2023 1:54 PM EDT PROCEDURAL HISTORY AND PHYSICAL EXAM SERVICE DATE and TIME: November 25, 2023 at 1:54 PM The History and Physical (completed in the past 30 days) has been reviewed and the patient has beenexamined. The contents accurately reflect the patient's condition with the following additions or revisions since the H&P was completed. Patient referred by Sarbjit Andrea. ASSESSMENT AND PLAN M54.16 Radiculopathy, lumbar region (primary encounter diagnosis) Patient here today for Left S1 Transforaminal Epidural Steroid Injection . SUBJECTIVE HPI: This is a 78 year old female who presents with pain located left sided radicular pain down left posterior leg . Pain today is 2/10. PAST MEDICAL HISTORY: No past medical history on file. PAST SURGICAL HISTORY: No past surgical history on file. MEDICATIONS: Prior to Admission medications as of 11/25/23 1306 Medication Sig Last Dose Taking hydrOXYchloroQUINE (PLAQUENIL) 200 mg tablet Take 2 tablets by mouth once daily. Taking Yes gabapentin (NEURONTIN) 100 mg capsule Take 100 mg by mouth three times a day. Taking 500 mg in am and 600 mg in pm Taking Yes clonazePAM (KLONOPIN) 0.5 mg tablet Take 0.5 mg by mouth as directed. 2 tabs at night Taking Yes sodium chloride 1 gram tab Take 1 g by mouth twice daily. Taking Yes amLODIPine (NORVASC) 5 mg tablet Take by mouth once daily. Taking Yes simvastatin (ZOCOR) 20 mg tablet Take 20 mg by mouth daily at bedtime. Taking Yes metoprolol tartrate, short acting, (LOPRESSOR) 50 mg tablet Take 50 mg by mouth twice daily. TakingYes ferrous sulfate 325 mg (65 mg iron) tablet Take 325 mg by mouth. Three times weekly Taking Yes DULoxetine (CYMBALTA) 30 mg capsule Take 30 mg by mouth twice daily. Taking Yes amitriptyline (ELAVIL) 25 mg tablet Take 25 mg by mouth daily at bedtime. Taking Yes ZOLMitriptan (ZOMIG) 2.5 mg tablet Take 2.5 mg by mouth as needed. Taking Yes omeprazole (PRILOSEC) 40 mg capsule Take 40 mg by mouth twice daily. Taking Yes omega-3/dha/epa/dpa/fish oil (OMEGA-3 2100 ORAL) Take by mouth once daily. Taking Yes cholecalciferol (VITAMIN D) 1,000 unit tab tablet Take 1,000 Units by mouth once daily. Taking Yes vitamin b complex capsule Take 1 capsule by mouth once daily. Taking Yes Ascorbic Acid (VITAMIN C) 500 mg chew Take 500 mg by mouth once daily. Taking Yes aspirin, enteric coated (ASPIRIN, ENTERIC COATED) 81 mg EC tablet Take 81 mg by mouth once daily. Patient not taking: Reported on 08/17/2023 ALLERGIES: ALLERGIES No Known Allergies OBJECTIVE PHYSICAL EXAM: VITAL SIGNS: 11/25/23 1328 BP: 122/87 Pulse: 73 Resp: 18 Temp: 36.7 C (98.1 F) AIRWAY: Patent, Full neck flexion and extension, Uvula visible RESP: Non-labored breathing. CV: Extremities are warm and well-perfused. Motor: 5/5 BLE The remainder of the physical exam is noncontributory. Risk, benefits, medications, personnel, and process of the procedure was explained to the patient with explicit agreement by patient or patient hvac sales representative to proceed before procedure. Patient seen and discussed with attending, Roman Waggoner DO, who agrees with plan. Bharath Vizcaino DO PGY-5 Interventional Spine and Musculoskeletal Medicine Fellow Physical Medicine and Rehabilitation SIGNATURE: Bahrath Vizcaino DO PATIENT NAME: Suma Scott DATE: November 25, 2023 TIME: 1:54 PM [facility] History and physical note* Bharath Vizcaino DO - 11/25/2023 1:54 PM EDT PROCEDURAL HISTORY AND PHYSICAL EXAM SERVICE DATE and TIME: November 25, 2023 at 1:54 PM The History and Physical (completed in the past 30 days) has been reviewed and the patient has beenexamined. The contents accurately reflect the patient's condition with the following additions or revisions since the H&P was completed. Patient referred by Sarbjit Andrea. ASSESSMENT AND PLAN M54.16 Radiculopathy, lumbar region (primary encounter diagnosis) Patient here today for Left S1 Transforaminal Epidural Steroid Injection . SUBJECTIVE HPI: This is a 78 year old female who presents with pain located left sided radicular pain down left posterior leg . Pain today is 2/10. PAST MEDICAL HISTORY: No past medical history on file. PAST SURGICAL HISTORY: No past surgical history on file. MEDICATIONS: Prior to Admission medications as of 11/25/23 1306 Medication Sig Last Dose Taking hydrOXYchloroQUINE (PLAQUENIL) 200 mg tablet Take 2 tablets by mouth once daily. Taking Yes gabapentin (NEURONTIN) 100 mg capsule Take 100 mg by mouth three times a day. Taking 500 mg in am and 600 mg in pm Taking Yes clonazePAM (KLONOPIN) 0.5 mg tablet Take 0.5 mg by mouth as directed. 2 tabs at night Taking Yes sodium chloride 1 gram tab Take 1 g by mouth twice daily. Taking Yes amLODIPine (NORVASC) 5 mg tablet Take by mouth once daily. Taking Yes simvastatin (ZOCOR) 20 mg tablet Take 20 mg by mouth daily at bedtime. Taking Yes metoprolol tartrate, short acting, (LOPRESSOR) 50 mg tablet Take 50 mg by mouth twice daily. TakingYes ferrous sulfate 325 mg (65 mg iron) tablet Take 325 mg by mouth. Three times weekly Taking Yes DULoxetine (CYMBALTA) 30 mg capsule Take 30 mg by mouth twice daily. Taking Yes amitriptyline (ELAVIL) 25 mg tablet Take 25 mg by mouth daily at bedtime. Taking Yes ZOLMitriptan (ZOMIG) 2.5 mg tablet Take 2.5 mg by mouth as needed. Taking Yes omeprazole (PRILOSEC) 40 mg capsule Take 40 mg by mouth twice daily. Taking Yes omega-3/dha/epa/dpa/fish oil (OMEGA-3 2100 ORAL) Take by mouth once daily. Taking Yes cholecalciferol (VITAMIN D) 1,000 unit tab tablet Take 1,000 Units by mouth once daily. Taking Yes vitamin b complex capsule Take 1 capsule by mouth once daily. Taking Yes Ascorbic Acid (VITAMIN C) 500 mg chew Take 500 mg by mouth once daily. Taking Yes aspirin, enteric coated (ASPIRIN, ENTERIC COATED) 81 mg EC tablet Take 81 mg by mouth once daily. Patient not taking: Reported on 08/17/2023 ALLERGIES: ALLERGIES No Known Allergies OBJECTIVE PHYSICAL EXAM: VITAL SIGNS: 11/25/23 1328 BP: 122/87 Pulse: 73 Resp: 18 Temp: 36.7 C (98.1 F) AIRWAY: Patent, Full neck flexion and extension, Uvula visible RESP: Non-labored breathing. CV: Extremities are warm and well-perfused. Motor: 5/5 BLE The remainder of the physical exam is noncontributory. Risk, benefits, medications, personnel, and process of the procedure was explained to the patient with explicit agreement by patient or patient hvac sales representative to proceed before procedure. Patient seen and discussed with attending, Roman Waggoner DO, who agrees with plan. Bharath Vizcaino DO PGY-5 Interventional Spine and Musculoskeletal Medicine Fellow Physical Medicine and Rehabilitation SIGNATURE: Bhartah Vizcaino DO PATIENT NAME: Suma Scott DATE: November 25, 2023 TIME: 1:54 PM documented in this encounterMer[facility] Nurse Note* Darcy Seth MA - 11/25/2023 1:33 PM EDT PATIENT NAME: Suma Scott 1945 78 year old Current medications and allergies reviewed with patient in visit navigator: Yes Baseline vital signs and pain assessment entered in activity in visit navigator: Yes [employer] for post spine injection procedure: Yes First Name: Vic Relationship: Son Pre-procedure pain level on 0-10 scale 2 Patient gender: Female. Is there any chance the patient could be ? No. Menstrual Date: Hysterectomy Undergone Injection in the past: No Time since last PO intake: 11/24/23 @ 12 PM Any history of adverse reaction or unanticipated events when receiving steroids, iodine, or contrast, as commonly used for CT or MR imaging: No Antibiotic/antifungal administered in the last 2 weeks: No Recent flu symptoms: No Noticed any open skin, sores, or rashes: No Undergone any recent serious medical/dental or surgical procedure: No Diabetic: No Fluoroscopy applicable: currently using an Insulin Pump: No Blood Thinner (anticoagulants/antiplatelet medications): No Klonopin requested: Yes Signed by: Darcy Seth MA November 25, 2023 1:33 PM [facility] Nurse Note* Darcy Seth MA - 11/25/2023 1:33 PM EDT PATIENT NAME: Suma Scott 1945 78 year old Current medications and allergies reviewed with patient in visit navigator: Yes Baseline vital signs and pain assessment entered in activity in visit navigator: Yes [employer] for post spine injection procedure: Yes First Name: Vic Relationship: Son Pre-procedure pain level on 0-10 scale 2 Patient gender: Female. Is there any chance the patient could be ? No. Menstrual Date: Hysterectomy Undergone Injection in the past: No Time since last PO intake: 11/24/23 @ 12 PM Any history of adverse reaction or unanticipated events when receiving steroids, iodine, or contrast, as commonly used for CT or MR imaging: No Antibiotic/antifungal administered in the last 2 weeks: No Recent flu symptoms: No Noticed any open skin, sores, or rashes: No Undergone any recent serious medical/dental or surgical procedure: No Diabetic: No Fluoroscopy applicable: currently using an Insulin Pump: No Blood Thinner (anticoagulants/antiplatelet medications): No Klonopin requested: Yes Signed by: Darcy Seth MA November 25, 2023 1:33 PM documented in this encounterMer[facility]09-11-2024 History of Present illness Narrative* Mayco Vanessa LPN - 11/25/2023 1:30 PM EDT NON-SEDATION PROCEDURE FORM November 25, 2023 7:53 AM Room Number: S7-729 Fluoroscopy suite ID verified: Yes Arrived via indpendent ambulation 78 year old Weight: Last 2 Encounter Wt Readings: Date: Wt: 08/17/2023 86.3 kg (190 lb 4.1 oz) 08/07/2022 79.4 kg (175 lb) Indication for Procedure (Associated Diagnoses): low back pain Procedure ordered: Left S1 Transforaminal Epidural Steroid Injection Verified by patient by: Dr. Edilson Morel for post spine injection procedure: Yes Patient mentation: alert, oriented, cooperative Yes Allergies: ALLERGIES No Known Allergies Pre-Procedural medication orders:clonazePAM orally disintegrating (KLONOPIN WAFER) 0.5 mg disintegrating tablet given as prescribed Patient tolerated well Documented in med note. Pre-procedural orders Discharge / transfer when discharge assessment criteria met: Alert and oriented X3, moves all extremities X4, vital signs stable, injection site flat and dry. Able to ambulate as prior to procedure Sign In Communication: Allergies and medications reviewed. Site of the procedure confirmed:Yes Informed Consent Complete: Yes Relevent diagnostic tests reviewed (i.e., use of anticoagulants, INR, platelet count, imaging, etc.) Yes Critical Information: Proceduralist: Dr. Edilson Vizcaino DO PROCEDURAL TIME OUT: Time out verification includes:Audible time-out documented: Yes. Time: 1402 Correct Patient: Two Patient Identifiers Correct side/ site marking, prep and dry time (If applicable) Accurate Consent Correct Procedure Correct Positioning Safety Precautions Based on Patient History or Medication Team agrees: correct patient, correct procedure, correct site, correct position UNIVERSAL PROTOCOL / SAFETY CHECKLIST Procedure to be Performed: Left S1 Transforaminal Epidural Steroid Injection Sign In: A Moment of CARE was completed. Personnel directly involved with the procedure wore the appropriate PPE (Personal Protective Equipment). No special equipment needed. Patient/Surrogate Stated/Verified: PATIENT VERIFIED(optional for EMERGENT procedures): Patient name, Date of , Relevant allergies, and The intended procedure Time Out Communication: Intended patient and procedure match the source documents. Consent documented and matches the intended procedure. Relevant labs, photos, and/or imaging studies have been reviewed. Correct side/site marked and visible. Medications required for procedure verified. Fire risk assessed and interventions discussed. No implant(s) inserted. Sign Out: SIGN OUT (optional for EMERGENT procedures): No specimen collected. All instruments, equipment, possible retained foreign bodies accounted for. Post-procedure follow-up management communicated and Plan of Care Visit completed when applicable. Alesia Pace RN Procedure Start time: 1409 Monitors On: NIBP Yes Pulse Oximetry Yes Site Prep: Povidone iodine, allowed to dry for 30 seconds Procedure Events: Vital Signs documented in activity above. Medications given, interventions, and notes: Time: BP Pulse R O2 Sat 1404 154/94 79 18 96 1410 124/95 75 18 96 1415 139/85 77 18 95 1420 133/83 79 18 93 1425 135/86 73 18 94 1430 Omnipaque (iohexol) 300mg/mL SDV volume 50 mL, Lidocaine 1% 10mg/mL SDV volume 30 mL Preservative-Free, and Dexamethasone Na phosphate 10mg/ml Preservative-Free Total Fluroscopy time:: 65 seconds. Procedure Finish Time: 1430 SIGN-OUT Dressings Applied to site(s): hypoallergenic transparent Tegaderm with absorbent nonadherent pad Mota concerns for recovery and management of patient reviewed verbally prior to patient leaving procedure room. Post- Procedure Events: Vital Signs documented as below. Medications given, interventions, and notes as needed: Yes Time: BP Pulse R O2 Sat Pain scale 1435 134/79 76 18 94 0 AMBULATORY PATIENT EDUCATION TOPIC: PROCEDURE / SURGERY: Post Procedure Teaching: Symptom Management and Wound Care READINESS TO LEARN COGNITIVE ABILITY: Alert and oriented MOTIVATION TO LEARN: Eager FAMILY SUPPORT: Unable to assess - Family not present INSTRUCTION PROVIDED TO: Patient PATIENT LEARNS BEST BY: Individual Instruction Written Instruction - Hand-outs FACTORS AFFECTING LEARNING: None PHYSICAL LIMITATIONS AFFECTING LEARNING: None LEARNING RESPONSE METHOD OF INSTRUCTION: Teach Back post procedure instructions Individual instruction Written instruction - handouts Verbal instruction PATIENT / FAMILY RESPONSE: Verbalizes understanding of: POST-PROCEDURE INSTRUCTIONS-Correct actionsto take to reduce post procedure complications Information received as demonstrated by interest and questions FOLLOW-UP PLAN: Patient instructed to call with any further issues SUPPLEMENTAL MATERIAL: Procedure discharge instructions REFERRAL (RECOMMENDATION): None Electronically Signed By Mayco Vanessa LPN In Department: [facility] Discharge assessment: PAIN SCALE: 0 on a scale of 0-10 (0=none, 10=extreme) Discharge: Verbal and written post procedure instructions given to:patient with stated understanding. Discharge prescriptions given to patient (if applicable). medication use explained to patient with stated understanding (if applicable) Patient Discharge to: Home, in the care of responsible adult: patient and son (adult) via indpendent ambulation Other: No Follow up as indicated on order: Ordering Provider Via Office Visit: 2-4 weeks. Patient reminded tobring pain diary to follow appointment. If follow up appointment indicated on order, patient encouraged to schedule follow up appointment at S70 desk for 2-4 weeks post procedure or by calling [phone], [facility] central scheduling. Discharge as above criteria met: Yes Condition of surgical/injection site at discharge: dry, intact, other: Yes November 25, 2023 Additional notes: No Discharge time: 1448 documented in this encounterMer[facility]09-11-2024 NoteHNO ID: [id number] Author: MAYCO VANESSA LPN Service: ? Author Type: LICENSED NURSE Type: Progress Notes Filed: 11/25/2023 14:48 Note Text: NON-SEDATION PROCEDURE FORM November 25, 2023 7:53 AM Room Number: S7-729 Fluoroscopy suite ID verified: Yes Arrived via indpendent ambulation 78 year old Weight: Last 2 Encounter Wt Readings: Date: Wt: 08/17/2023 86.3 kg (190 lb 4.1 oz) 08/07/2022 79.4 kg (175 lb) Indication for Procedure (Associated Diagnoses): low back pain Procedure ordered: Left S1 Transforaminal Epidural Steroid Injection Verified by patient by: Dr. Waggoner [employer] for post spine injection procedure: Yes Patient mentation: alert, oriented, cooperative Yes Allergies: ALLERGIES No Known Allergies Pre-Procedural medication orders:clonazePAM orally disintegrating (KLONOPIN WAFER) 0.5 mg disintegrating tablet given as prescribed Patient tolerated well Documented in med note. Pre-procedural orders Discharge / transfer when discharge assessment criteria met: Alert and oriented X3, moves all extremities X4, vital signs stable, injection site flat and dry. Able to ambulate as prior to procedure Sign In Communication: Allergies and medications reviewed. Site of the procedure confirmed:Yes Informed Consent Complete: Yes Relevent diagnostic tests reviewed (i.e., use of anticoagulants, INR, platelet count, imaging, etc.) Yes Critical Information: Proceduralist: Dr. Edilson Vizcaino DO PROCEDURAL TIME OUT: Time out verification includes:Audible time-out documented: Yes. Time: 1402 Correct Patient: Two Patient Identifiers Correct side/ site marking, prep and dry time (If applicable) Accurate Consent Correct Procedure Correct Positioning Safety Precautions Based on Patient History or Medication Team agrees: correct patient, correct procedure, correct site, correct position UNIVERSAL PROTOCOL / SAFETY CHECKLIST Procedure to be Performed: Left S1 Transforaminal Epidural Steroid Injection Sign In: A Moment of CARE was completed. Personnel directly involved with the procedure wore the appropriate PPE (Personal Protective Equipment). No special equipment needed. Patient/Surrogate Stated/Verified: PATIENT VERIFIED(optional for EMERGENT procedures): Patient name, Date of , Relevant allergies, and The intended procedure Time Out Communication: Intended patient and procedure match the source documents. Consent documented and matches the intended procedure. Relevant labs, photos, and/or imaging studies have been reviewed. Correct side/site marked and visible. Medications required for procedure verified. Fire risk assessed and interventions discussed. No implant(s) inserted. Sign Out: SIGN OUT (optional for EMERGENT procedures): No specimen collected. All instruments, equipment, possible retained foreign bodies accounted for. Post-procedure follow-up management communicated and Plan of Care Visit completed when applicable. Alesia Pace RN Procedure Start time: 1409 Monitors On: NIBP Yes Pulse Oximetry Yes Site Prep: Povidone iodine, allowed to dry for 30 seconds Procedure Events: Vital Signs documented in activity above. Medications given, interventions, and notes: Time: BP Pulse R O2 Sat 1404 154/94 79 18 96 1410 124/95 75 18 96 1415 139/85 77 18 95 1420 133/83 79 18 93 1425 135/86 73 18 94 1430 Omnipaque (iohexol) 300mg/mL SDV volume 50 mL, Lidocaine 1% 10mg/mL SDV volume 30 mL Preservative-Free, and Dexamethasone Na phosphate 10mg/ml Preservative-Free Total Fluroscopy time:: 65 seconds. Procedure Finish Time: 1430 SIGN-OUT Dressings Applied to site(s): hypoallergenic transparent Tegaderm with absorbent nonadherent pad Mota concerns for recovery and management of patient reviewed verbally prior to patient leaving procedure room. Post- Procedure Events: Vital Signs documented as below. Medications given, interventions, and notes as needed: Yes Time: BP Pulse R O2 Sat Pain scale 1435 134/79 76 18 94 0 AMBULATORY PATIENT EDUCATION TOPIC: PROCEDURE / SURGERY: Post Procedure Teaching: Symptom Management and Wound Care READINESS TO LEARN COGNITIVE ABILITY: Alert and oriented MOTIVATION TO LEARN: Eager FAMILY SUPPORT: Unable to assess - Family not present INSTRUCTION PROVIDED TO: Patient PATIENT LEARNS BEST BY: Individual Instruction Written Instruction - Hand-outs FACTORS AFFECTING LEARNING: None PHYSICAL LIMITATIONS AFFECTING LEARNING: None LEARNING RESPONSE METHOD OF INSTRUCTION: Teach Back post procedure instructions Individual instruction Written instruction - handouts Verbal instruction PATIENT / FAMILY RESPONSE: Verbalizes understanding of: POST-PROCEDURE INSTRUCTIONS-Correct actions to take to reduce post procedure complications Information received as demonstrated by interest and questions FOLLOW-UP PLAN: Patient instructed to call with any further issues SUPPLEMENTAL MATERIAL: (more content not included)...[facility] 11-17-2023 Telephone encounter Note* Telephone Encounter - Giselle Villaseñor RN - 11/17/2023 10:21 AM EDT Phoned patient and spoke with Suma to confirm appointment for Suma Scott for spine procedure on 11/25/2023 with the arrival time of 1pm for a 1:30pm schedule time appointment. Patient verbalized understanding of the following: -Provided education on spine procedure and answered questions related to spine injection procedure. 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 -NPO 4 hours prior to appointment, ok to take morning medications with sip of water. -Not to take any pain medications the day of injection to see how well injection works. -Please do not take any NSAIDs/anti-inflammatories (mobic, ibuprofen, advil, aleve, etc) the day ofprocedure for all lumbar, hip, and sacroiliac joint procedures. Hold NSAIDs for 1 day prior to procedure for cervical cases. Allergies reviewed: yes Allergy to IV contrast dye or steroids: no Taking any antiplatelet/anticoagulant (blood thinners): no Taking aspirin 81mg: no Any open wounds/sores?: no Taking Antibiotics?: no Diabetic: no , notified that blood sugar will be taken at office and ok to take morning diabetes medication. -Patient has not had steroid injections within the last 2 weeks: no Patient notified that Klonopin PO can be given prior to injection to help with anxiety. Patient verbalized understanding. Patient given number [phone], spine injections schedulers, if there is any need to reschedule/change appointment during normal business hours. Active MyChart users were informed to read MyChartprocedure instructions prior to appointment. AMBULATORY PATIENT EDUCATION TOPIC: SPINE INJECTION PROCEDURE, PRE-INJECTION AND POST- INJECTION INSTRUCTIONS READINESS TO LEARN COGNITIVE ABILITY: ALERT AND ORIENTED MOTIVATION TO LEARN: Interested FAMILY SUPPORT: Unable to assess - Family not present INSTRUCTION PROVIDED TO: Patient PATIENT LEARNS BEST BY: INDIVIDUAL INSTRUCTION FACTORS AFFECTING LEARNING: None PHYSICAL LIMITATIONS AFFECTING LEARNING: None LEARNING RESPONSE METHOD OF INSTRUCTION: TEACH BACK AND INDIVIDUAL INSTRUCTION Giselle Villaseñor RN PATIENT / FAMILY RESPONSE: VERBALIZED UNDERSTANDING OF PRE AND POST INJECTION INSTRUCTIONS . [facility]09-03-2024 Miscellaneous Notes* Telephone Encounter - Giselle Villaseñor RN - 11/17/2023 10:21 AM EDT Phoned patient and spoke with Suma to confirm appointment for Suma Scott for spine procedure on 11/25/2023 with the arrival time of 1pm for a 1:30pm schedule time appointment. Patient verbalized understanding of the following: -Provided education on spine procedure and answered questions related to spine injection procedure. 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 -NPO 4 hours prior to appointment, ok to take morning medications with sip of water. -Not to take any pain medications the day of injection to see how well injection works. -Please do not take any NSAIDs/anti-inflammatories (mobic, ibuprofen, advil, aleve, etc) the day ofprocedure for all lumbar, hip, and sacroiliac joint procedures. Hold NSAIDs for 1 day prior to procedure for cervical cases. Allergies reviewed: yes Allergy to IV contrast dye or steroids: no Taking any antiplatelet/anticoagulant (blood thinners): no Taking aspirin 81mg: no Any open wounds/sores?: no Taking Antibiotics?: no Diabetic: no , notified that blood sugar will be taken at office and ok to take morning diabetes medication. -Patient has not had steroid injections within the last 2 weeks: no Patient notified that Klonopin PO can be given prior to injection to help with anxiety. Patient verbalized understanding. Patient given number [phone], spine injections schedulers, if there is any need to reschedule/change appointment during normal business hours. Active MyChart users were informed to read MyChartprocedure instructions prior to appointment. AMBULATORY PATIENT EDUCATION TOPIC: SPINE INJECTION PROCEDURE, PRE-INJECTION AND POST- INJECTION INSTRUCTIONS READINESS TO LEARN COGNITIVE ABILITY: ALERT AND ORIENTED MOTIVATION TO LEARN: Interested FAMILY SUPPORT: Unable to assess - Family not present INSTRUCTION PROVIDED TO: Patient PATIENT LEARNS BEST BY: INDIVIDUAL INSTRUCTION FACTORS AFFECTING LEARNING: None PHYSICAL LIMITATIONS AFFECTING LEARNING: None LEARNING RESPONSE METHOD OF INSTRUCTION: TEACH BACK AND INDIVIDUAL INSTRUCTION Giselle Villaseñor RN PATIENT / FAMILY RESPONSE: VERBALIZED UNDERSTANDING OF PRE AND POST INJECTION INSTRUCTIONS . [facility] Instructions* Patient Instructions* Sarbjit Andrea DO - 11/05/2023 8:34 AM EDT Images from the original note were not included. Subacute Lumbar Radiculopathy (Leg Pain) Overview: Symptoms of a pinched nerve in the leg (lumbar radiculopathy) include numbness, tingling and evenweakness. Leg pain is usually worse than back pain. The cause of nerve impingement may include a protruding (herniated) disc, bony or joint overgrowth or both. Lumbar spinal stenosis is a condition which results from narrowing of the spinal canal which contains the lower spinal nerves. This condition typically produces leg symptoms when standing or walking which are relieved by sitting. The prognosis for a full recovery with conservative (non-surgical) treatment is good in most persons. X-rays or scans (MRI or CT) are not required in most patients before starting treatment but may be performed if symptoms aren't improving after about 6 weeks despite medical treatment. Treatment: Pain-relieving anti-inflammatory medications such as ibuprofen or naproxen are recommended. Acetaminophen (Tylenol) is recommended if you cannot take anti- inflammatory medications. Medications effective for nerve pain such as gabapentin (Neurontin), pregabalin (Lyrica) or some antidepressants may be helpful for leg pain. A short course of oral steroids (prednisone or Medrol) may help alleviate severe, acute inflammation. For persistent pain despite oral medications and physical therapy, an epidural corticosteroid injection ( block ) may be recommended if an MRI or CT scan confirms nerve impingement ( pinched nerve ). Simple home exercises are recommended to speed recovery, relieve back and neck pain and restore normal back mobility. A physical therapist may be helpful in customizing these exercises. Remaining as active as possible and resuming normal activities as tolerated is recommended. If weakness is developing in the affected leg or if pain is severe despite medical treatment, a surgical consultation may be recommended if an MRI or CT scan confirms nerve impingement. Follow Up See your health care provider if: The pain doesn't improve or worsens within 4-6 weeks You notice increasing weakness in the leg(s) You experience problems with balance or walking You notice difficulty passing urine or controlling your bowels These are warning signs or red flags that require prompt, urgent medical attention. SIGNATURE: Sarbjit Andrea DO PATIENT NAME: Suma Scott DATE: November 05, 2023 TIME: 8:34 AM documented in this encounterMer[facility]08-[facility]24 NoteHNO ID: [id number] Author: ZULLY, SARBJIT, DO Service: ? Author Type: Physician Type: Progress Notes Filed: 11/08/2023 09:53 Note Text: Spine Care Path Radicular Leg Pain - Subacute (6 - 12 weeks) Initial Exam SUBJECTIVE HISTORY OF PRESENT ILLNESS: Suma Scott is a 78 year old female who presents with a chief complaint of low back pain and is self-referred. Patient presents today with complaints of pain in the low back and into the left hip down the left leg. She reports the symptoms have been present for approximately 2 months to this degree. Does report at least 18 years of generalized back pain but never stopped her from really doing anything. She was previously very active mowed her own lawn is a house moves furniture. Recently episode is the worst that she has ever dealt with. Reports pain started and has not resolved. Has been on 2 steroid packs. Has developed pain to the degree that is causing her to vomit she is unable to eat. Has undergone lumbar MRI which we have available here for our review. At times feels her left leg is weak hard to tell due to pain. Walking exacerbates her symptoms into the leg. Denies any injuries at the onset of her symptoms. Has been seeing chiropractor. Additionally deals with restless leg syndrome. Also deals with numbness and tingling in the bilateral hands. Also has history of migraine headaches which she reports is stable at this time. Currently is on gabapentin. Other Issues Addressed at the Visit Today: None. Precipitating Event: None PAIN EVALUATION 11/05/2023 0807 Pain Level: 7 Pain Location: Hip-Left Description: Burning;Throbbing Duration Amount of Time: 2 Duration Units: Months Frequency: Continuous Pain Radiation: Pain radiates into the left lower limb Aggravating Factors: Walking Alleviating Factors: Steroids, chiropractor, Pain Ratio: 50 % back pain, 50 % leg pain Prior Therapy: Medications, rest Litigation: No Workers' Compensation: No YELLOW AND BLUE FLAGS No-Neg Attitude; Back Pain is Disabling No-Avoiding Activity (for Fear of Pain) No-Depression or Anxiety Disorders No-Social Problems No-Substance Use Disorder No-Job Dissatisfaction No-Financial Disincentives Patient Entered Questionnaires PROMIS Score Percentiles Percentiles provide an indication of how the patient's score ranks in relation to the general population. Higher percentile rankings indicate better function/quality of life. 50th percentile is the average of the general population and indicates half of respondents had a worse score. Depression Screening: PHQ-9 Self-Harm (Item 9) response options: 0 Not at all 1 Several days 2 More than half the days 3 Nearly every day PHQ-9 Levels: 0-4 No - mild depression 5-9 Mild depression 10-14 Moderate depression 15-19 Moderately severe depression 20-27 Severe depression There is no problem list on file for this patient. No past medical history on file. No past surgical history on file. Social History Tobacco Use Smoking status: Never Smokeless tobacco: Never No family history on file. ALLERGIES No Known Allergies CURRENT MEDICATIONS: hydrOXYchloroQUINE (PLAQUENIL) 200 mg tablet Take 2 tablets by mouth once daily. gabapentin (NEURONTIN) 100 mg capsule Take 100 mg by mouth three times a day. Taking 500 mg in am and 600 mg in pm clonazePAM (KLONOPIN) 0.5 mg tablet Take 0.5 mg by mouth as directed. 2 tabs at night simvastatin (ZOCOR) 20 mg tablet Take 20 mg by mouth daily at bedtime. metoprolol tartrate, short acting, (LOPRESSOR) 50 mg tablet Take 50 mg by mouth twice daily. DULoxetine (CYMBALTA) 30 mg capsule Take 30 mg by mouth twice daily. amitriptyline (ELAVIL) 25 mg tablet Take 25 mg by mouth daily at bedtime. ZOLMitriptan (ZOMIG) 2.5 mg tablet Take 2.5 mg by mouth as needed. omeprazole (PRILOSEC) 40 mg capsule Take 40 mg by mouth twice daily. cholecalciferol (VITAMIN D) 1,000 unit tab tablet Take 1,000 Units by mouth once daily. vitamin b complex capsule Take 1 capsule by mouth once daily. Ascorbic Acid (VITAMIN C) 500 mg chew Take 500 mg by mouth once daily. aspirin, enteric coated (ASPIRIN, ENTERIC COATED) 81 mg EC tablet Take 81 mg by mouth once daily. (Patient not taking: Reported on 08/17/2023) sodium chloride 1 gram tab Take 1 g by mouth twice daily. amLODIPine (NORVASC) 5 mg tablet Take by mouth once daily. ferrous sulfate 325 mg (65 mg iron) tablet Take 325 mg by mouth. Three times weekly omega-3/dha/epa/dpa/fish oil (OMEGA-3 2100 ORAL) Take by mouth once daily. REVIEW OF SYSTEMS: Review of Systems Constitutional: Negative Eyes: Negative Hent: Negative Cardiovascular: Negative Respiratory: Negative GI: Negative : Negative Endocrine: Negative Musculoskeletal Positive for Back Pain and Muscle Pain Integumentary: Negative Heme/Lymph: Negative Allergy/Immunologic: Negative Neurologic Positive for Numbne (more content not included)...[facility] 11-05-2023 History of Present illness Narrative* Sarbjit Andrea, - 11/05/2023 8:32 AM EDT Spine Care Path Radicular Leg Pain - Subacute (6 - 12 weeks) Initial Exam SUBJECTIVE HISTORY OF PRESENT ILLNESS: Suma Scott is a 78 year old female who presents with a chief complaint of low back pain and isself-referred. Patient presents today with complaints of pain in the low back and into the left hip down the left leg. She reports the symptoms have been present for approximately 2 months to this degree. Does report at least 18 years of generalized back pain but never stopped her from really doing anything. She was previously very active mowed her own lawn is a house moves furniture. Recently episode is the worst that she has ever dealt with. Reports pain started and has not resolved. Has been on 2 steroid packs. Has developed pain to the degree that is causing her to vomit she is unable to eat. Has undergone lumbar MRI which we have available here for our review. At times feels her left leg is weak hardto tell due to pain. Walking exacerbates her symptoms into the leg. Denies any injuries at the onset of her symptoms. Has been seeing chiropractor. Additionally deals with restless leg syndrome. Alsodeals with numbness and tingling in the bilateral hands. Also has history of migraine headaches which she reports is stable at this time. Currently is on gabapentin. Other Issues Addressed at the Visit Today: None. Precipitating Event: None PAIN EVALUATION 11/05/2023 0807 Pain Level: 7 Pain Location: Hip-Left Description: Burning;Throbbing Duration Amount of Time: 2 Duration Units: Months Frequency: Continuous Pain Radiation: Pain radiates into the left lower limb Aggravating Factors: Walking Alleviating Factors: Steroids, chiropractor, Pain Ratio: 50 % back pain, 50 % leg pain Prior Therapy: Medications, rest Litigation: No Workers' Compensation: No YELLOW & BLUE FLAGS No-Neg Attitude; Back Pain is Disabling No-Avoiding Activity (for Fear of Pain) No-Depression or Anxiety Disorders No-Social Problems No-Substance Use Disorder No-Job Dissatisfaction No-Financial Disincentives Patient Entered Questionnaires PROMIS Score Percentiles Percentiles provide an indication of how the patient's score ranks in relation to the general population. Higher percentile rankings indicate better function/quality of life. 50th percentile is the average of the general population and indicates half of respondents had a worse score. Depression Screening: PHQ-9 Self-Harm (Item 9) response options: 0 Not at all 1 Several days 2 More than half the days 3 Nearly every day PHQ-9 Levels: 0-4 No - mild depression 5-9 Mild depression 10-14 Moderate depression 15-19 Moderately severe depression 20-27 Severe depression There is no problem list on file for this patient. No past medical history on file. No past surgical history on file. Social History Tobacco Use Smoking status: Never Smokeless tobacco: Never No family history on file. ALLERGIES No Known Allergies CURRENT MEDICATIONS: hydrOXYchloroQUINE (PLAQUENIL) 200 mg tablet Take 2 tablets by mouth once daily. gabapentin (NEURONTIN) 100 mg capsule Take 100 mg by mouth three times a day. Taking 500 mg in am and 600 mg in pm clonazePAM (KLONOPIN) 0.5 mg tablet Take 0.5 mg by mouth as directed. 2 tabs at night simvastatin (ZOCOR) 20 mg tablet Take 20 mg by mouth daily at bedtime. metoprolol tartrate, short acting, (LOPRESSOR) 50 mg tablet Take 50 mg by mouth twice daily. DULoxetine (CYMBALTA) 30 mg capsule Take 30 mg by mouth twice daily. amitriptyline (ELAVIL) 25 mg tablet Take 25 mg by mouth daily at bedtime. ZOLMitriptan (ZOMIG) 2.5 mg tablet Take 2.5 mg by mouth as needed. omeprazole (PRILOSEC) 40 mg capsule Take 40 mg by mouth twice daily. cholecalciferol (VITAMIN D) 1,000 unit tab tablet Take 1,000 Units by mouth once daily. vitamin b complex capsule Take 1 capsule by mouth once daily. Ascorbic Acid (VITAMIN C) 500 mg chew Take 500 mg by mouth once daily. aspirin, enteric coated (ASPIRIN, ENTERIC COATED) 81 mg EC tablet Take 81 mg by mouth once daily. (Patient not taking: Reported on 08/17/2023) sodium chloride 1 gram tab Take 1 g by mouth twice daily. amLODIPine (NORVASC) 5 mg tablet Take by mouth once daily. ferrous sulfate 325 mg (65 mg iron) tablet Take 325 mg by mouth. Three times weekly omega-3/dha/epa/dpa/fish oil (OMEGA-3 2100 ORAL) Take by mouth once daily. REVIEW OF SYSTEMS: Review of Systems Constitutional: Negative Eyes: Negative Hent: Negative Cardiovascular: Negative Respiratory: Negative GI: Negative : Negative Endocrine: Negative Musculoskeletal Positive for Back Pain and Muscle Pain Integumentary: Negative Heme/Lymph: Negative Allergy/Immunologic: Negative Neurologic Positive for Numbness/Tingling and Weakness Patient's Review of Systems has been reviewed with the patient and updated as appropriate. OBJECTIVE: PHYSICAL EXAM There were no vitals taken for this visit. GENERAL APPEARANCE: Well appearing, well-hydrated, well nourished and alert SKIN: Head, neck, trunk, and extremities dry, intact and without lesions HEART: Peripheral pulses: normal, 2+ bilaterally and symmetric, Edema: No LUNGS: even and non-labored breathing, normal chest excursion LYMPHATICS: No palpable lymphadenopathy in the neck, axilla, or groin NEURO/PSYCH: oriented to time, place, and person, speech normal, mental status intact GAIT: antalgic gait POSTURE: Posture and spinal curves are normal PALPATION: paraspinal tenderness; lumbar MUSCULOSKELETAL: Extended Low Back & Leg Exam Lumbar Range of Motion Flexion To knees Extension Restricted RIGHT LEFT Lateral Bending Limited Limited Oblique Extension Decreased Decreased Leg Raise Straight Leg Raise Negative Positive; 30 degrees Contralateral Straight Leg Raise Negative Negative DTRs Knee Normal Normal Ankle Absent Absent Medial Hamstring Absent Absent Babinski normal normal Strength of Lower Extremities Extensor Hallux Longus 5/5 4+/5 Ankle Dorsiflexion 5/5 5/5 Ankle Plantarflexion 5/5 4/5 Knee Extension 5/5 5/5 Chano's Exam: Deferred Hip Range of Motion RIGHT LEFT Flexion Normal Normal Extension Mildly Restricted Mildly Restricted Abduction Normal Normal Adduction Normal Normal Internal Rotation Mildly Restricted Mildly Restricted External Rotation Mildly Restricted Mildly Restricted Hip Exam RIGHT LEFT GILDA Exam Normal Abnormal Trochanteric Bursa Tenderness Normal Normal Gaenslen's Maneuver Normal Normal Kina's Test (IT-Band Pathology) Normal Normal @[id number]@ Cervical Range of Motion Flexion Normal Extension Restricted RIGHT LEFT Rotation Limited ROM with pain Limited ROM with pain Lateral Bend Limited ROM with pain Limited ROM with pain Upper Body Reflex Exam RIGHT LEFT Reflex Status Reflex Status Biceps 2+ Normal 2+ Normal Triceps 2+ Normal 2+ Normal Brachioradialis 2+ Normal 2+ Normal Inverted Radial 2+ Normal 2+ Normal Adrian's Sign absent absent Upper Extremity Strength RIGHT LEFT Strength (MMT) Strength (MMT) Shoulder Abduction 5/5 5/5 Biceps 5/5 5/5 Triceps 4/5 5/5 Resisted Suppination 5/5 5/5 Wrist Extension 5/5 5/5 Interossei 5/5 5/5 APB weakness on the right Shoulder Range of Motion RIGHT LEFT Flexion Normal Normal Extension Normal Normal Abduction Normal Normal Adduction Normal Normal Internal Rotation Normal Normal External Rotation Normal Normal Shoulder Tests N/A NEUROSENSORY: On sensory exam patient with diminished left L5 greater than L4 sensory deficits but greatest in the left S1. Also sensory deficits in the right median distribution. APB weakness Neuro Tests: None Data Review: Reviewed patient's lumbar MRI imaging which shows evidence of grade 1 to grade 2 spondylolisthesis at the L5-S1 level moderate foraminal narrowing bilaterally at the L5 level. On the left there is left lateral disc bulge with severe compression of the traversing left S1 nerve. MRI brain: 2019 TECHNIQUE: MRI of the brain was obtained using T1-weighted axial and sagittal spin-echo, proton density and T2-weighted axial fast spin-echo, axial FLAIR, DWI and ADC trace images prior to contrast administration. Following intravenous injection of 16 mL of ProHance, T1-weighted axial and coronal images were obtained. Additional 3 mm T1-weighted axial and coronal images through the petrous region were obtained before and after intravenous injection for evaluation of internal auditory canals. FINDINGS: There is no midline shift, hydrocephalus or acute infarct. Mild cortical atrophy is shown. The brainstem is unremarkable. Slight chronic small vessel ischemic changes are shown at the periventricular white matter. There is a small choroid fissure cyst at the left deep temporal region, of no clinical significance. Bilateral 7th and 8th nerve complexes are unremarkable. Bilateral 5th nerves are also unremarkable. The postcontrast study shows no abnormally enhancing brain lesion including the cerebellopontine angles. The visualized mastoid air cells are unremarkable. There is significant soft tissue signal intensity within the left maxillary sinus from significant chronic sinusitis. Moderate mucosal thickening within the left ethmoid sinus is noted. ASSESSMENT/PLAN (M54.16) Radiculopathy, lumbar region (primary encounter diagnosis) Comment: Patient with left lower limb radiculopathy likely related to L5 and S1 more so S1. Will schedule patient for lumbar epidural injection transforaminal S1 on the left and we will see how she does with this injection. Could consider interlaminar epidural injection above the level of her severe stenosis. Advised patient definitive treatment for her current symptoms would involve decompression and surgery. Will see how she does with injection first Plan: PATIENT PLACED ON SPINE CARE PATH, SPINE INTERVENTION PROCEDURE (M43.16) Spondylolisthesis of lumbar region Plan: PATIENT PLACED ON SPINE CARE PATH, SPINE INTERVENTION PROCEDURE In addition patient continues to deal with numbness tingling the upper limbs. Discussed additional workup in the future. No evidence of hyperreflexia on exam to suggest cervical pathology as explanation, however, may still pursue additional imaging in the future Imaging Ordered: None SIGNATURE: Sarbjit Andrea DO PATIENT NAME: Suma Scott DATE: November 05, 2023 TIME: 8:34 AM documented in this encounterMer[facility]-22-2024 History of Present illness Narrative* Mary Boucher, RT(R) - 11/05/2023 7:45 AM EDT Radiology Service Progress Note PATIENT NAME: Suma Scott DATE OF SERVICE: November 05, 2023 TIME: 8:01 AM PATIENT IDENTITY VERIFICATION COMPLETED USING TWO (2) IDENTIFIERS: Name and Date of confirmedby patient verbally. FALL SCREENING: Has the patient had 2 falls in the last year or 1 fall with injury or currently using an Ambulatory Assistive Device (Walker, Cane, Wheelchair, Crutches, etc.)? No PATIENT GENDER DATA: Female. status: : No status: NO. PATIENT RELEVANT IMPLANT DATA REVIEWED: Not Applicable PATIENT PRESENTS WITH AN IMPLANTABLE OR ATTACHED HEALTH SPECIALIST: No RADIOLOGY DEPARTMENT: General X-ray: Exam(s) Completed: Spine X-Ray(s): Lumbar AP / LAT / L5-S1 / FLEX-EXT PERIPHERAL IV DATA: Not applicable SIGNED BY: RT Holly(R) November 05, 2023 8:01 AM documented in this encounterMercy [facility]08-22-2024 NoteHNO ID: [id number] Author: MARY BOUCHER RT(R) Service: ? Author Type: Technologist Type: Progress Notes Filed: 11/05/2023 08:01 Note Text: Radiology Service Progress Note PATIENT NAME: Suma Scott DATE OF SERVICE: November 05, 2023 TIME: 8:01 AM PATIENT IDENTITY VERIFICATION COMPLETED USING TWO (2) IDENTIFIERS: Name and Date of confirmed by patient verbally. FALL SCREENING: Has the patient had 2 falls in the last year or 1 fall with injury or currently using an Ambulatory Assistive Device (Walker, Cane, Wheelchair, Crutches, etc.)? No PATIENT GENDER DATA: Female. status: : No status: NO. PATIENT RELEVANT IMPLANT DATA REVIEWED: Not Applicable PATIENT PRESENTS WITH AN IMPLANTABLE OR ATTACHED HEALTH SPECIALIST: No RADIOLOGY DEPARTMENT: General X-ray: Exam(s) Completed: Spine X-Ray(s): Lumbar AP / LAT / L5-S1 / FLEX-EXT PERIPHERAL IV DATA: Not applicable SIGNED BY: RT Holly(R) November 05, 2023 8:01 [facility]08-20-2024 History of Present illness Narrative* Alyssa Whelan NP - 11/03/2023 10:00 AM EDT Images from the original note were not included. No chief complaint on file. Subjective Suma here today for a follow up on N/T in the hands, migraines, and RLS. Reports that gabapentin is helping with N/T. States that index and middle fingers are numb all of the time, with tingling sensation. She says that the sharp shooting pain has dissipated. Reports that sciatic in left leg is worsening by the day and that she is to see a coding compliance specialist on 11/30/2023. Hoping to find relief. Migraines are stable. RLS is stable with Klonopin. Past Medical History: Diagnosis Date Arthritis Peptic ulcer disease Past Surgical History: Procedure Laterality Date GALLBLADDER SURGERY 2019 HYSTERECTOMY 1980 OTHER SURGICAL HISTORY 2018 hammer toe SHOULDER SURGERY 2016 TONSILLECTOMY TOTAL KNEE ARTHROPLASTY Right 02/28/2019 [facility] MTP TUBAL LIGATION 1974 Family History Problem Relation Name Age of Onset Cancer Mother Heart disease Father Osteoarthritis Father Cancer Maternal Grandfather Cancer Paternal Grandmother Mental illness Paternal Grandfather Diabetes Other spouse Hypertension Other spouse Cancer Other spouse Cancer Daughter Social History Tobacco Use Smoking status: Never Smokeless tobacco: Never Substance Use Topics Alcohol use: Yes Alcohol/week: 6.0 standard drinks of alcohol Types: 6 Standard drinks or equivalent per week Comment: caffeine intake : none Allergies: Lorazepam Vitals: 11/03/23 0956 BP: 134/84 Body mass index is 34.28 kg/m . weight: 181 lb 6.4 oz Neurologic exam: Mental status: Awake, alert to person, place and time. Recent and remote memory are intact. Attention and concentration are normal. Fund of knowledge is appropriate for level of education. HEENT: NC/AT Cranial nerves: CN II: Visual acuity is normal. Visual potter full to confrontation. CN III, IV, : pupils equal round and reactive to light. Extraocular movements intact. No ptosis present. CN V: Facial sensation is normal. CN VII: Full and symmetric facial movement. CN VIII: Hearing is normal to finger rub bilaterally: CN IX and X: Palate elevates symmetrically. Normal gag reflex. CN XI: Shoulder shrug is normal bilaterally. CN XII: Tongue is midline without atrophy or fasciculation. Speech: Clear and fluent no aphasia or dysarthria Pronator drift: Negative bilateral upper extremity Coordination: Intact, no signs of dysmetria Good finger to nose and rapid alternating movements Sensory: Sensation is intact to light touch, temperature and vibration throughout four extremities. Pinprick intact in all four extremities, decreased in left hand Motor: LUE 5/5 RUE 5/5 LLE 5/5 RLE 5/5 Tone: Physiologic, no tremor, bradykinesia or rigidity DTR: Biceps, BR 2/4 Patellar 2/4 No spasticity Gait: Normal to casual gait Assessment/Plan Diagnoses and all orders for this visit: Restless legs Paresthesia of skin Anesthesia of skin Chronic left-sided low back pain with left-sided sciatica - lidocaine (Lidoderm) 5 % patch; Apply 1 patch over 12 hours topically Daily Apply for 12 hours daily - tiZANidine (Zanaflex) 4 MG tablet; Take 1/2-1 by mouth twice a day 78 year old female with numbness, tingling and pain into her hands. She is having trouble with finemotor skills. Left hand is considerably more bothersome than the right hand. This is stable and gabapentin is helpful. Denies any pain in arms or neck. N/T, pain starts at wrist area distally to fingertips bilaterally. Prior OV this was felt to be more entrapment like carpal tunnel syndrome howeverher EMG from 02/14/2020 was normal. She has had an NIMISHA and rheumatoid factor and her rheumatoid factor was 73.5. Her NIMISHA was normal. Certainly due to the concern for rheumatoid arthritis we sent her over to rheumatology. She is diagnosed with RA. She is taking hydroxychloroquine and ivermectin for this. Her previous TSH was normal. She did have a slightly low iron and is back on the iron 3 days aweek. Her RLS has been controlled. She was on naltrexone by the weight loss doctor, Dr. Rivas. andthat actually had helped control the tingling with the gabapentin combination. She is no longer taking the naltrexone as she has not seen Dr. Rivas recently due to health issues with her . She is wearing cock upwrist splints at night when needed. EMG BUE 07/2022 minimal bilateral CTS, minimal left median motor neuropathy proximal to the wrist. She did not end up seeing Dr. Lujan. She is having some numbness in her feet and parestheisa that does go up the posterior right thigh as well. . She is seeing neurosurg next month per PCP referral for lower left sided back pain with sciatica. He has been giving her pain med and steroids. She has had MRI. She states it is getting worse day by day and she is hardly able to walk some days. We will give her a muscle relaxer and lidocaine patches. Muscle relaxer is one thing she has not tried. She is aware to watch for sedating effects and to not drive until she knows how she is affected. She has done multiple OTC creams and ointments, chiro, heat, ice and massage. She has a month before visit with neurosurg. . Her sleep had worsened with the issues with her . She is on amitriptyline and she is on the klonopin. We discussed this and with her history of SVT and her age, an increase may not be the bestoption for her due to prolonging Q-T interval risk. If we decide to do this at some point in the future this should be cleared with Dr. Zamora and we would obtain a baseline EKG. She did try some edible gummies as I saw these on her OARRS a prior visit but she stated these did not help. Her tension headahces, migraines and hemicrania headaches have been under control and have been doing well. She did call in, in August 2021 and we were going to order Indomethacin for that headache. Her insurnace would not cover this and she was ordered Meloxicam and never picked this up. . . . Plan Continue with neurosurg visit next month Start zanaflex 4 mg 1/2-1 po BID, watch for sedation Start lidopatches to lower back continue gabapentin to 500mg po in am and continue 600mg at bedtime, she can not remember to take an afternoon dose. OARRS reviewed at time of refills, send to [facility] for refills Continue with Dr. Rivas for weight loss when able Monitor for any worsening continue with bilateral wrist splints at bedtime Montor tingling and numbness symptoms Continue with Rheum for RA continue Amitriptyline at current dose, if increased in future, clear with Dr. Zamora, cardiology The patient was counseled on proper sleep hygiene and adequate hours of sleep. This was discussed with the patient, all questions were answered and they agreed with the treatmentplan. The patient is to call with any worsening of the condition or new symptoms. Return to clinic: 6 months documented in this encounterResearch Belton [id number] Telephone encounter Note* Telephone Encounter - Adelaide Redd LPN - 10/27/2023 9:26 AM EDT [employer] message sent to patient updating her that refill has been sent in. [facility]08-[facility] Miscellaneous Notes* Telephone Encounter - Adelaide Redd LPN - 10/27/2023 9:26 [address] ED[address] [employer] message sent to patient updating her that refill has been sent in. * Telephone Encounter - Jorge Flores MD - 10/26/2023 10:00 PM EDT Notify patient medication sent as requested Thank you. Patient's request for medication is as follows: Requested Prescriptions Signed Prescriptions Disp Refills hydrOXYchloroQUINE (PLAQUENIL) 200 mg tablet 180 tablet 0 Sig: Take 2 tablets by mouth once daily. Authorizing Provider: JORGE FLORES Prescription(s) as above. Please process accordingly. Jorge Flores MD * Telephone Encounter - Adelaide Redd LPN - 10/26/2023 1:25 PM EDT Most recent Rheumatology visit: 08/17/2023 (with Belinda Weaver) Last Bone Density on file: None on file Rheumatology Care Team: None on file Recent Office Visits - This Specialty None Upcoming Rheumatology Appointments - Next 365 Days No appointments to display Last Ophthalmology Check for Plaquenil (Hydroxychloroquine) Last OCT Macula Exam No resulted procedures found. Last Visual Field Exam No resulted procedures found. CBC: None on file in the last 6 months Vitamin D: None on file in the last 6 months LFT: Hepatic Function: Creatinine: None on file in the last 6 months ESR/CRP: None on file in the last 6 months Uric Acid: None on file in the last 6 months Open Standing (Multiple Instance) Lab Orders None Open Future (Single Instance) Lab Orders None \ documented in this encounterMer[facility]08-12-2024 Telephone encounter Note * Telephone Encounter - Jorge Flores MD - 10/26/2023 10:00 PM EDT Notify patient medication sent as requested Thank you. Patient's request for medication is as follows: Requested Prescriptions Signed Prescriptions Disp Refills hydrOXYchloroQUINE (PLAQUENIL) 200 mg tablet 180 tablet 0 Sig: Take 2 tablets by mouth once daily. Authorizing Provider: JORGE FLORES Prescription(s) as above. Please process accordingly. Jorge Flores MD [facility]08-12-2024 Telephone encounter Note* Telephone Encounter - Adelaide Redd LPN - 10/26/2023 1:25 PM EDT Most recent Rheumatology visit: 08/17/2023 (with Belinda Weaver) Last Bone Density on file: None on file Rheumatology Care Team: None on file Recent Office Visits - This Specialty None Upcoming Rheumatology Appointments - Next 365 Days No appointments to display Last Ophthalmology Check for Plaquenil (Hydroxychloroquine) Last OCT Macula Exam No resulted procedures found. Last Visual Field Exam No resulted procedures found. CBC: None on file in the last 6 months Vitamin D: None on file in the last 6 months LFT: Hepatic Function: Creatinine: None on file in the last 6 months ESR/CRP: None on file in the last 6 months Uric Acid: None on file in the last 6 months Open Standing (Multiple Instance) Lab Orders None Open Future (Single Instance) Lab Orders None \ [facility]08-06-20[facility] Evaluation note* Author Mayco Velasquez [facility] 20[facility] 4:31pmThe above note written by ___Iain Kenyon____ acting as human recorder, note dictated by Dr. Simmons .I performed the above HPI, ROS, and Examination. I formulated and dictated the treatment plan and was present for entire encounter. Mayco Velasquez D.O. [facility] Work Phone: [phone]) 888-698807-09-2024 History of Present illness Narrative* Deb Zamora MD - 09/22/2023 9:00 AM EDT Subjective Suma Scott is a 78 y.o. female Chief Complaint Follow-up HPI Patient is in the office for follow-up for the problems noted below. Since her last visit she has had no cardiac events whatsoever. She has developed lower extremity edema from the amlodipine therapy. I will switch her to valsartan follow her sodium level send she tells me she had history of hyponatremia. She has hyperlipidemia on statin therapy recent lab data from August 2023 done through her PCPwas requested. Her rheumatoid arthritis seems to be under control on hydroxychloroquine. Her weighthas increased 4 pounds from last visit something that I brought her attention. She has had no recurrent tachyarrhythmias. ASSESSMENT AND PLAN: 1. Essential hypertension, under control, due to lower extremity edema she will be switched from amlodipine to valsartan and follow sodium and renal function, she normally takes sodium chloride to prevent hyponatremia which I encouraged her to continue 2. Hyperlipidemia, on statin therapy with simvastatin. Lipid profile done August 2023 was requested 3. History of supraventricular tachycardia , presently managed on beta phil therapy. No recurrences 4. Class II obesity. Encouraged the patient to continue to bring her weight under control with dietand exercise. 5. Rheumatoid arthritis on hydroxychloroquine stable Deb Zamora MD, [facility] Review of Systems All other systems reviewed and are negative. Vitals: 09/22/23 0856 BP: 110/68 BP Location: Left arm Patient Position: Sitting Pulse: 64 Weight: 84.4 kg (186 lb) Height: 1.549 m (5' 1 ) Objective Physical Exam Constitutional: Appearance: Normal appearance. HENT: Nose: Nose normal. Neck: Vascular: No carotid bruit. Cardiovascular: Rate and Rhythm: Normal rate. Pulses: Normal pulses. Heart sounds: Normal heart sounds. Pulmonary: Effort: Pulmonary effort is normal. Abdominal: General: Bowel sounds are normal. Palpations: Abdomen is soft. Musculoskeletal: General: Normal range of motion. Cervical back: Normal range of motion. Right lower le+ Edema present. Left lower le+ Edema present. Skin: General: Skin is warm and dry. Neurological: General: No focal deficit present. Mental Status: She is alert. Psychiatric: Mood and Affect: Mood normal. Behavior: Behavior normal. Thought Content: Thought content normal. Judgment: Judgment normal. Allergies Patient has no known allergies. Current Medications Current Outpatient Medications: amitriptyline (Elavil) 25 mg tablet, Take 1 tablet (25 mg) by mouth once daily at bedtime., Disp: ,Rfl: ascorbic acid (Vitamin C) 100 mg tablet, Take 1 tablet (100 mg) by mouth once daily., Disp: , Rfl: b complex vitamins (Vitamins B Complex) capsule, Take 1 capsule by mouth once daily., Disp: , Rfl: CALCIUM CITRATE-VITAMIN D3 ORAL, Take 1 tablet by mouth once daily., Disp: , Rfl: cholecalciferol (Vitamin D-3) 25 MCG (1000 UT) capsule, Take 1 capsule (25 mcg) by mouth once daily., Disp: , Rfl: clonazePAM (KlonoPIN) 0.5 mg tablet, Take 1 tablet (0.5 mg) by mouth as needed at bedtime., Disp: ,Rfl: coenzyme Q-10 100 mg capsule, Take 1 capsule (100 mg) by mouth once daily., Disp: , Rfl: DULoxetine (Cymbalta) [address] capsule, Take 1 capsule (30 mg) by mouth once daily., Disp: , Rfl: gabapentin (Neurontin) 100 mg capsule, Take 1 capsule (100 mg) by mouth 2 times a day. Take 1 capsule in am 2 capsule in afternoon, 3 capsules in pm, Disp: , Rfl: gabapentin (Neurontin) 400 mg capsule, Take 1 capsule (400 mg) by mouth 2 times a day., Disp: , Rfl: hydroxychloroquine (Plaquenil) 200 mg tablet, Take 1 tablet (200 mg) by mouth 2 times a day., Disp:, Rfl: magnesium oxide (Mag-Ox) 400 mg tablet, Take 1 tablet (400 mg) by mouth once daily., Disp: , Rfl: metoprolol tartrate (Lopressor) 50 mg tablet, Take 1 tablet by mouth 2 times a day., Disp: , Rfl: omeprazole (PriLOSEC) [address] capsule, Take 1 capsule (40 mg) by mouth 2 times a day., Disp: , Rfl: simvastatin (Zocor) 20 mg tablet, Take 1 tablet (20 mg) by mouth once daily., Disp: , Rfl: sodium chloride 1,000 mg tablet, Take 1 tablet (1 g) by mouth 2 times a day., Disp: , Rfl: zinc gluconate 50 mg tablet, Take 1 tablet (50 mg) by mouth once daily., Disp: , Rfl: Assessment/Plan 1. Essential hypertension 2. Supraventricular tachycardia (CMS-HCC) 3. Mixed hyperlipidemia 4. BMI 35.0-35.9,adult 5. Never smoked tobacco Scribe Attestation By signing my name below, I, Desirae Gonzalez LPN, Scribe attest that this documentation has been prepared under the direction and in the presence of Deb Zamora MD. Provider Attestation - Scribe documentation All medical record entries made by the Scribe were at my direction and personally dictated by me. Ihave reviewed the chart and agree that the record accurately reflects my personal performance of the history, physical exam, discussion and plan. documented in this encounterC[facility] Work Phone: 1(278) 895-646407-09-2024 Instructions* Patient Instructions* Desirae Mora LPN - 09/22/2023 9:00 AM EDT Please bring all medicines, vitamins, and herbal supplements with you when you come to the office. Prescriptions will not be filled unless you are compliant with your follow up appointments or have a follow up appointment scheduled as per instruction of your physician. Refills should be requested at the time of your visit. BMI was above normal measurement. Current weight: 84.4 kg (186 lb) Weight change since last visit (-) denotes wt loss 5 lbs Weight loss needed to achieve BMI 25: 54 Lbs Weight loss needed to achieve BMI 30: 27.6 Lbs Provided instructions on dietary changes. documented in this encounterC[facility] Work Phone: 1(552) 699-370406-06-2024 Evaluation note* Author Mayco Velasquez [facility] 2023 9:48amThe above note written by ___Iain Kenyon____ acting as human recorder, note dictated by Dr. Simmons .I performed the above HPI, ROS, and Examination. I formulated and dictated the treatment plan and was present for entire encounter. Mayco Velasquez D.O. [facility] Work Phone: [phone]) 488-264706-04-2024 Telephone encounter Note* Telephone Encounter - Latoya Willoughby - 08/18/2023 4:36 PM EDT [facility] is calling Belinda eWaver MD today to request clarification on hydrOXYchloroQUINE (PLAQUENIL)'s instructions. Please call pharmacy to clarify. Patient has been identified by name and birthdate. Duration of symptoms: N/A Person calling: Pharmacy Call patient at: [phone] Was an appointment scheduled: No Closing statement: Results or non-symptom based questions: Thank you for calling [facility], your call will be returned within the next business day. Thank you, Latoya Willoughby [facility]06-04-2024 Miscellaneous Notes* Telephone Encounter - Latoya Willoughby - 08/18/2023 4:36 PM EDT [facility] is calling Belinda Weaver MD today to request clarification on hydrOXYchloroQUINE (PLAQUENIL)'s instructions. Please call pharmacy to clarify. Patient has been identified by name and birthdate. Duration of symptoms: N/A Person calling: Pharmacy Call patient at: [phone] Was an appointment scheduled: No Closing statement: Results or non-symptom based questions: Thank you for calling [facility], your call will be returned within the next business day. Thank you, Latoya Willoughby documented in this encounterMercy Health [facility]06-03-2024 NoteHNO ID: [id number] Author: BELINDA WEAVER MD Service: ? Author Type: Physician Type: Progress Notes Filed: 08/17/2023 14:48 Note Text: Rheumatology Outpatient Clinic Date of Service: 08/17/2023 Patient: Suma Scott Medical Record: [id number] Primary Care Physician: Mayco Velasquez DO Last Rheumatology visit: 08/07/2022 (with Belinda Weaver) History of Present Illness Suma Scott is a 78 year old female who presents on 08/17/2023 for an in-person visit for evaluation of Osteoarthritis. She is currently taking hydroxychloroquine sulfate. HISTORY OF PRESENT ILLNESS This patient is known to me from my previous practice with [facility] with a diagnosis of osteoarthritis. This patient had been on hydroxychloroquine 400 mg daily and then was lost to follow-up. As she has been off the hydroxychloroquine for several months now. She is experiencing breakthrough pain in her fingers, thumbs, ankles and feet. Her low back is also progressing over time. She did feel better when she was on the hydroxychloroquine and was inquiring about restarting it. 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 She also has numbness in her feet and her fingertips. She had a recent EMG of her hands showing very mild carpal tunnel and she was wondering if this is the source of her fingertip numbness. Does she will get some sharp shooting pain in the back of her legs in the calf region now last 15 or 20 minutes randomly. She tends to get leg cramping at night more in the left than the right. She does have well established degenerative disc disease of the lumbar spine on x-ray findings. INTERVAL HISTORY Patient returns for reevaluation management of her osteoarthritis. Since last visit the patient has reinitiated hydroxychloroquine 400 mg daily. Over the past year she felt this was providing reasonly good relief for her arthritis pain. Then due to scheduling she has come up 2 months short without the hydroxychloroquine and has started to experience some breakthrough pain in her fingers and thumbs. She is also developed some left sciatica pain on the posterior aspect of her left thigh that comes and goes. She is working with stretching and this seems to be easing it up. Otherwise there are no other new musculoskeletal complaints. Her general health has remained stable. Her last eye exam was stable on the hydroxychloroquine. Patient-Entered Data PAIN EVALUATION 08/17/2023 1418 Pain Level: 5 Pain Location: Hand-Left Bilateral hand Description: Shooting;Numbness;Sharp Duration Amount of Time: -- Bilateral thumb, first and second fingers Frequency: Continuous Intervention/Comfort measure: -- Nothing helps Comments: also has left buttock all the way down to her foot pain sharp, cutting pain 10/10 intermittent can last days PROMIS Assessments RAPID 3 Mota Activities of Daily Living No Data Dress self? - Get in and out of bed? - Walk outdoors? - Wash and dry body? - Get in and out of car? - RAPID 3 Disease Activity Weighed Score Levels: 0 - 1: Near Remission 1.3 - 2.0: Low Severity 2.3 - 4.0: Moderate Severity 4.3 - 10.0: High Severity Review of Systems Review of Systems CONSTITUTION: Negative for: Weight loss or gain, Fever. Chills, Night sweats HEENT: Negative for: Nosebleeds, Mouth sores, Trouble swallowing, Dry mouth RESPIRATORY: Negative for: Cough, Shortness of breath, Pain with breathing, Coughing up blood GASTROINTESTINAL: Negative for: Melena, Diarrhea, Abdominal pain, Heartburn, MUSCULOSKELETAL: Positive for: Arthralgias and Myalgias Negative for: Muscle weakness, Joint swelling and Morning Joint Stiffness NEUROLOGICAL: Negative for: Headaches, Numbness, Memory loss, SKIN: Negative for: Rashes, Sun sensitive rashes, Skin color changes, Hair loss, Nail changes EYES: Negative for: Eye pain, Eye redness, Visual disturbance, Eye dryness CARDIOVASCULAR: Negative for: Chest pain, Leg swelling, Arrhythmia, Presyncope GENITOURINARY: Negative for: Dysuria, Hematuria, Ulceration HEMATOLOGIC/LYMPHATIC: Negative for: Swollen glands All other reviewed and negative other than HPI. Past Medical History No past medical history on file. Past Surgical History No past surgical history on file. Family History No family history on file. Social History Current Medications Current Outpatient Medications Medication Sig gabapentin (NEURONTIN) 100 mg capsule Take 100 mg by mouth three times a day. Taking 500 mg in am and 600 mg in pm clonazePAM (KLONOPIN) 0.5 mg tablet Take 0.5 mg by mouth as directed. 2 tabs at night sodium chloride 1 gram tab Take 1 g by mouth twice daily. amLODIPine (NORVASC) 5 mg tablet Take by mouth once daily. simvastatin (ZOCOR) 20 mg tablet Ta (more content not included)...[facility]06-03-2024 History of Present illness Narrative* Belinda Weaver MD - 08/17/2023 2:31 PM EDT Images from the original note were not included. Rheumatology Outpatient Clinic Date of Service: 08/17/2023 Patient: Suma Scott Medical Record: [id number] Primary Care Physician: Mayco Velasquez DO Last Rheumatology visit: 08/07/2022 (with Belinda Weaver) History of Present Illness Suma Scott is a 78 year old female who presents on 08/17/2023 for an in-person visit for evaluation of Osteoarthritis. She is currently taking hydroxychloroquine sulfate. HISTORY OF PRESENT ILLNESS This patient is known to me from my previous practice with [facility] with a diagnosis ofosteoarthritis. This patient had been on hydroxychloroquine 400 mg daily and then was lost to follow-up. As she has been off the hydroxychloroquine for several months now. She is experiencing breakthrough pain in her fingers, thumbs, ankles and feet. Her low back is also progressing over time. She did feel better when she was on the hydroxychloroquine and was inquiring about restarting it. 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 She also has numbness in her feet and her fingertips. She had a recent EMG of her hands showing very mild carpal tunnel and she was wondering if this is the source of her fingertipnumbness. Does she will get some sharp shooting pain in the back of her legs in the calf region nowlast 15 or 20 minutes randomly. She tends to get leg cramping at night more in the left than the right. She does have well established degenerative disc disease of the lumbar spine on x-ray findings. INTERVAL HISTORY Patient returns for reevaluation management of her osteoarthritis. Since last visit the patient hasreinitiated hydroxychloroquine 400 mg daily. Over the past year she felt this was providing reasonly good relief for her arthritis pain. Then due to scheduling she has come up 2 months short without the hydroxychloroquine and has started to experience some breakthrough pain in her fingers and thumbs. She is also developed some left sciatica pain on the posterior aspect of her left thigh that comes and goes. She is working with stretching and this seems to be easing it up. Otherwise there are noother new musculoskeletal complaints. Her general health has remained stable. Her last eye exam wasstable on the hydroxychloroquine. Patient-Entered Data PAIN EVALUATION 08/17/2023 1418 Pain Level: 5 Pain Location: Hand-Left Bilateral hand Description: Shooting;Numbness;Sharp Duration Amount of Time: -- Bilateral thumb, first and second fingers Frequency: Continuous Intervention/Comfort measure: -- Nothing helps Comments: also has left buttock all the way down to her foot pain sharp, cutting pain 10/10 intermittent can last days PROMIS Assessments RAPID 3 Mota Activities of Daily Living No Data Dress self? - Get in and out of bed? - Walk outdoors? - Wash and dry body? - Get in and out of car? - RAPID 3 Disease Activity Weighed Score Levels: 0 - 1: Near Remission 1.3 - 2.0: Low Severity 2.3 - 4.0: Moderate Severity 4.3 - 10.0: High Severity Review of Systems Review of Systems CONSTITUTION: Negative for: Weight loss or gain, Fever. Chills, Night sweats HEENT: Negative for: Nosebleeds, Mouth sores, Trouble swallowing, Dry mouth RESPIRATORY: Negative for: Cough, Shortness of breath, Pain with breathing, Coughing up blood GASTROINTESTINAL: Negative for: Melena, Diarrhea, Abdominal pain, Heartburn, MUSCULOSKELETAL: Positive for: Arthralgias and Myalgias Negative for: Muscle weakness, Joint swelling and Morning Joint Stiffness NEUROLOGICAL: Negative for: Headaches, Numbness, Memory loss, SKIN: Negative for: Rashes, Sun sensitive rashes, Skin color changes, Hair loss, Nail changes EYES: Negative for: Eye pain, Eye redness, Visual disturbance, Eye dryness CARDIOVASCULAR: Negative for: Chest pain, Leg swelling, Arrhythmia, Presyncope GENITOURINARY: Negative for: Dysuria, Hematuria, Ulceration HEMATOLOGIC/LYMPHATIC: Negative for: Swollen glands All other reviewed and negative other than HPI. Past Medical History No past medical history on file. Past Surgical History No past surgical history on file. Family History No family history on file. Social History Current Medications Current Outpatient Medications Medication Sig gabapentin (NEURONTIN) 100 mg capsule Take 100 mg by mouth three times a day. Taking 500 mg in am and 600 mg in pm clonazePAM (KLONOPIN) 0.5 mg tablet Take 0.5 mg by mouth as directed. 2 tabs at night sodium chloride 1 gram tab Take 1 g by mouth twice daily. amLODIPine (NORVASC) 5 mg tablet Take by mouth once daily. simvastatin (ZOCOR) 20 mg tablet Take 20 mg by mouth daily at bedtime. metoprolol tartrate, short acting, (LOPRESSOR) 50 mg tablet Take 50 mg by mouth twice daily. ferrous sulfate 325 mg (65 mg iron) tablet Take 325 mg by mouth. Three times weekly DULoxetine (CYMBALTA) 30 mg capsule Take 30 mg by mouth twice daily. amitriptyline (ELAVIL) 25 mg tablet Take 25 mg by mouth daily at bedtime. ZOLMitriptan (ZOMIG) 2.5 mg tablet Take 2.5 mg by mouth as needed. omeprazole (PRILOSEC) 40 mg capsule Take 40 mg by mouth twice daily. omega-3/dha/epa/dpa/fish oil (OMEGA-3 2100 ORAL) Take by mouth once daily. cholecalciferol (VITAMIN D) 1,000 unit tab tablet Take 1,000 Units by mouth once daily. vitamin b complex capsule Take 1 capsule by mouth once daily. Ascorbic Acid (VITAMIN C) 500 mg chew Take 500 mg by mouth once daily. hydrOXYchloroQUINE (PLAQUENIL) 200 mg tablet Take 2 tablets by mouth once daily. Take one tab by mouth daily with food. Sunscreen when outdoors. See ophthalmology every 6-12months on med. aspirin, enteric coated (ASPIRIN, ENTERIC COATED) 81 mg EC tablet Take 81 mg by mouth once daily. (Patient not taking: Reported on 08/17/2023) No current facility-administered medications for this visit. Labs Imaging Last XR Hand/Finger - Impression Only XR HAND GENERAL 3V PA/LAT/OBL LEFT Collected: 10/07/2020 12:00 PM (Final result) Last MRI Hand - Impression Only No resulted procedures found. Last XR Chest - Impression Only XR CHEST 2V FRONTAL/LAT Collected: 01/04/2019 (Final result) Impression: No acute cardiopulmonary pathology. Impression dictated by: Luis Antonio Moss M.D.01/04/2019 12:24 PM Dictation Location: [facility] ... Last XR Cervical Spine - Impression Only No resulted procedures found. Health Maintenance Current Immunizations Never Reviewed No immunizations on file. Physical Exam GENERAL APPEARANCE: Well groomed. Alert and oriented x 3. In no distress. VITAL SIGNS: BP 130/79 Pulse 72 Wt 190 lb 4.1 oz (86.3kg) SpO2 94% SKIN: No rash, thickening, nodules, discoloration. EYES: PERRL, EOMI. No inflammation seen. HENT: External examination and palpation of the ears and nose normal. Lips, teeth, and gums normal.Oropharynx and tongue normal. No lesions or exudate. NECK: No mass or asymmetry. RESPIRATORY: Normal respiratory effort. Clear to auscultation and percussion. CARDIOVASCULAR: Heart RRR without gallop, murmur, or rub. No bruits across chest or neck. EXTREMITIES: Normal and equal pulses in all 4 extremities. No edema. ABDOMEN: BS normal. No bruits, No tenderness, mass, or hepatosplenomegaly. NEUROLOGIC: Sensory exam normal. MUSCULOSKELETAL EXAMINATION: Soft tissue tender points: None Motor exam: Normal 5+/5+ muscle strength. Normal bulk and tone. Cervical spine: No visible abnormalities. Tenderness to palpation. Thoracic spine: No visible abnormalities. No tenderness to palpation. Lumbar spine: No visible abnormalities. Tenderness to palpation. Joint Exam 08/17/2023 Right Left PIP 2 Tender PIP 3 Tender Tender DIP 2 Tender DIP 3 Tender Tender Cervical Spine Tender Lumbar Spine Tender The following joints were examined and normal: Left Sternoclavicular, Right Sternoclavicular, Left Acromioclavicular, Right Acromioclavicular, Left Glenohumeral, Right Glenohumeral, Left Elbow, Right Elbow, Left Wrist, Right Wrist, Left MCP 1, Right MCP 1, Left MCP 2, Right MCP 2, Left MCP 3, Right MCP 3, Left MCP 4, Right MCP 4, Left MCP 5, Right MCP 5, Left IP, Right IP, Right PIP 2, Left PIP 4, Right PIP 4, Left PIP 5, Right PIP 5, Left Knee, Right Knee, Left Ankle, Right Ankle, Left MTP 1, Right MTP 1, Left MTP 2, Right MTP 2, Left MTP 3, Right MTP 3, Left MTP 4, Right MTP 4, Left MTP 5, Right MTP 5 Joint Exam Data (across time) 08/17/2023 08/07/2022 Joint Exam Total Tender 3 5 Total Swollen 0 0 Impression Diagnoses: (M15.9) Primary osteoarthritis involving multiple joints (primary encounter diagnosis) (M51.36) Lumbar degenerative disc disease (Z79.899) Long-term use of Plaquenil Plan Orders this visit: Office Visit on 08/17/23 hydrOXYchloroQUINE (PLAQUENIL) 200 mg tablet Discussed current status of her osteoarthritis as moderately active and does improve when she is onhydroxychloroquine. I have rewritten the hydroxychloroquine for 400 mg orally once each day for a 90-day supply and 3 additional refills. She assures me her last eye exam was stable. We discussed theback pain and sciatica pain and seems to be responding to stretching and she will continue to work with this. Return in about 1 year (around 08/16/2024). I spent a total of 30 minutes on the date of the service which included preparing to see the patient, [id number] patient care, completing clinical documentation, obtaining and/or reviewing separately obtained history, performing a medically appropriate examination, counseling and educating the pat ient/family/caregiver, and ordering medications, tests, or procedures. Medical Decision Making: Problems: Low: Stable chronic illness Moderate: 1+ chronic illnesses with change Risk: Moderate: Moderate risk from testing/treatment Medical Decision Making Level: 4 - Moderate Belinda Weaver MD Rheumatology Date: August 17, 2023 Time: 2:31 PM [facility]* Author Mayco Velasquez [facility] 2023 10:12amThe above note written by ___Iain Kenyon____ acting as human recorder, note dictated by Dr. Simmons .I performed the above HPI, ROS, and Examination. I formulated and dictated the treatment plan and was present for entire encounter. Mayco Velasquez D.O. [facility] Work Phone: [phone] Evaluation note* Encounter Date Diagnosis Assessment Notes Treatment Notes Treatment Clinical Notes Apr, Restless leg syndrome (ICD-10 - G25.81) [facility] Other 12-26-2023 Evaluation note* Encounter Date Diagnosis Assessment Notes Treatment Notes Treatment Clinical Notes Feb, Restless leg syndrome (ICD-10 - G25.81) [facility] Other 11-21-2023 Evaluation note* Encounter Date Diagnosis Assessment Notes Treatment Notes Treatment Clinical Notes Jan, Restless leg syndrome (ICD-10 - G25.81) She does continue to use and benefit from the Klonopin. An OARRS report was printed and reviewed, no discrepancies noted. Frequent appointments needed due to addiction potential of medication. Pain inventory sheet completed and reviewed if opiod medication given. Pain contract is on file if pertinent. Patient will have office visits every three months for evaluation or sooner if needed. I discussed addiction potential of medication with the patient. Discussed with the patient and provided a treatment plan including the use of non-opiod analgesics and non-pharmacological intervention with patient if treated for pain. We have discussed realistic benefits and known risks of opiod/controlled therapy and the expected benefits for both pain and function. These benefits outweigh the risks. Patient has been counselled on the dangers of combining opiods/controlled prescriptions with alcohol or other sedatives and counseled on the safe storage and disposal of opiods/controlled prescriptions. Do not drive or operate heavy machinery after taking opiod/controlled medication. I have verified that no current substance abuse treatments are being prescribed. Jan,ysphagia (ICD-10 - R13.10)She is having a procedure done with Dr. Bajwa next week, a barium swallow. She will see Dr. Ba on 02-11-23. Jan,Rheumatoid arthritis (ICD-10 - M06.9)She was asked to contact Dr. Weaver or return to see him for a refill on the above medication. Jan,Other9:57 AM - 10:07 AM [facility] Other 10-19-2023 Evaluation note* Encounter Date Diagnosis Assessment Notes Treatment Notes Treatment Clinical Notes Dec, Dysphagia (ICD-10 - R13.10) She has trouble swallowing and eating. She may have difficulty for 3-4 days and then it will resolve. She is not sure if this has to do with stress or not. She has not felt any lumps/bumps. It can occur with liquids or solids. It does not really hurt but bothers her. It can be impossible for her toget something down on the days this occurs. She can eat yogurt and will add protein on that day. If she is able to drink she will try to add protein. If she were to try to eat something she would be able to swallow it but it would hurt to swallow it. It would feel similar to getting a pill stuck. She started to cough up something recently during a recent episode but this was the only time anything had ever come up, it looked like a stem from a peach if you had pulled it off the tree. In betweenher flare up episodes she can eat and swallow things just fine. She has seen Dr. Bajwa in the pastand I did recommend that she see him for evaluation to rule out any abnormalities. She agrees. It is reassuring that in between episodes she can eat and drink and swallow things normally. Dec,lobus hystericus (ICD-10 - F45.8)We discussed globus hystericus which is a feeling of a lump in the throat due to stress. She has noticed that there are days she gets really stressed with her and it does seem that those are the days when these episodes occur. She tries very hard not to get stressed or upset with her but she cannot help it. He asks her constant questions and it is irritating to her. During an episode if she does not have to drive or go anywhere I would like her to take a Klonopin to see if this helps resolve these symptoms, if it does then we would know it is stress related. Either way I still want her to see Dr. Bajwa. [facility] Other 10-17-2023 Evaluation note* Encounter Date Diagnosis Assessment Notes Treatment Notes Treatment Clinical Notes Dec, Restless leg syndrome (ICD-10 - G25.81) [facility] Other 09-13-2023 Evaluation note* Encounter Date Diagnosis Assessment Notes Treatment Notes Treatment Clinical Notes Nov, Restless leg syndrome (ICD-10 - G25.81) [facility] Other 08-23-2023 Evaluation note* Encounter Date Diagnosis Assessment Notes Treatment Notes Treatment Clinical Notes Oct, Hypertension (ICD-10 - I10) Blood pressure is controlled at this time. Continue with above medication daily as directed. Oct,Insomnia (ICD-10 - G47.00)She is having trouble sleeping. If she is able to go to sleep and wakes up she will take a hot shower, but she is not always able to go back to sleep. She finds when she cannot sleep she just lays inbed for hours. She may just get up and start working around her home when she cannot sleep. This makes for a long day and a short fuse . She did try to take a shower prior to bed last night and it seemed to help. She does run a fan at night. I am not comfortable making any medication changes at this time. She is under a great deal of stress at home. I did recommend she see Dr. Espino for evaluation and to discuss sleep/sleep study. She is in agreement. A referral is provided. Oct,Restless leg syndrome (ICD-10 - G25.81)She does continue to use and benefit from the Klonopin. She is to call when she is due for a refill. I will see her back in three months. An OARRS report was printed and reviewed, no discrepancies noted. Frequent appointments needed due to addiction potential of medication. Pain inventory sheet completed and reviewed if opiod medication given. Pain contract is on file if pertinent. Patient will have office visits every three months for evaluation or sooner if needed. I discussed addiction potential of medication with the patient. Discussed with the patient and provided a treatment plan including the use of non-opiod analgesics and non-pharmacological intervention with patient if treated for pain. We have discussed realistic benefits and known risks of opiod/controlled therapy and the expected benefits for both pain and function. These benefits outweigh the risks. Patient has been counselled on the dangers of combining opiods/controlled prescriptions with alcohol or other sedatives and counseled on the safe storage and disposal of opiods/controlled prescriptions. Do not drive or operate heavy machinery after taking opiod/controlled medication. I have verified that no current substance abuse treatments are being prescribed. Oct,Hyperglycemia (ICD-10 - R73.9)Discussed blood sugar results with patient today. Glucose is 91. HgA1C is 5.7 up from 5.3 likely due to the stress she is under. Again, continue to monitor intake of carbs and sugars. Stay active. Oct,Iron deficiency anemia (ICD-10 - D50.9)Her HGB is 13.6. Iron is 63. Ferritin is 27. At this time she is to continue with iron supplementation as directed. Oct,Hyperlipidemia (ICD-10 - E78.5)She admits that she does not always take her medication daily as directed. She is so busy taking care of her and his issues that she states she cannot seem to get her life together . Her total cholesterol is 214. HDL is 66. LDL is 136. VLDL is 21. She is to continue to monitor her intake of carbs and sugars. Stay active. I did recommend that she try to find a place in her home where she can easily access her medication and take it as directed. I suspect her readings would be better if she were taking her medication daily as directed. Oct,Nocturia (ICD-10 - R35.1) Oct,Vitamin D deficiency (ICD-10 - E55.9)Her Vitamin D level is 46.3. She is to continue with above medication daily. Oct,nxiety (ICD-10 - F41.9)Continue with above medication daily as directed. Oct,Weight gain (ICD-10 - R63.5)She voices that her weight has gone up, she does not eat alot but does snack more than she should. I suspect she is not getting enough protein. I did recommend that she increase her intake of protein and dark green vegetables. She does eat 2 hard boiled eggs per day and drinks packets in her water that have 15 grams of protein in them. Her cortisol level is elevated likely due to stress and not being able to sleep so this will cause her to not be able to lose weight. Oct,SVT (supraventricular tachycardia) (ICD-10 - I47.1)At this time she is to continue with above medication as directed. Oct,Migraine variant with headache (ICD-10 - G43.809)She did see Dr. Helms recently for evaluation and is taking above medication. Oct,ERD (gastroesophageal reflux disease) (ICD-10 - K21.9)Continue with above medication daily as directed. Oct,Hyponatremia (ICD-10 - E87.1)Continue with above medication as directed for now. Oct,Rheumatoid arthritis (ICD-10 - M06.9)Continue with above medication daily as directed. Oct,Hand pain (ICD-10 - M79.643)Continue with above medication daily as directed. [facility] Other 07-31-2023 Evaluation note* Encounter Date Diagnosis Assessment Notes Treatment Notes Treatment Clinical Notes Sep, Restless leg syndrome (ICD-10 - G25.81) [facility] Other 06-30-2023 Evaluation note* Encounter Date Diagnosis Assessment Notes Treatment Notes Treatment Clinical Notes Aug, Rheumatoid arthritis (ICD-10 - M 06.9) Aug,Restless leg syndrome (ICD-10 - G25.81) [facility] Other 04-27-2023 Evaluation note* Encounter Date Diagnosis Assessment Notes Treatment Notes Treatment Clinical Notes Jun, Restless leg syndrome (ICD-10 - G25.81) [facility] Other 03-31-2023 Evaluation note* Encounter Date Diagnosis Assessment Notes Treatment Notes Treatment Clinical Notes May, Restless leg syndrome (ICD-10 - G25.81) [facility] Other 02-21-2023 Evaluation note* Encounter Date Diagnosis Assessment Notes Treatment Notes Treatment Clinical Notes Apr, Restless leg syndrome (ICD-10 - G25.81) [facility] Other 02-13-2023 Evaluation note* Encounter Date Diagnosis Assessment Notes Treatment Notes Treatment Clinical Notes Apr, Diarrhea (ICD-10 - R19.7) [facility] Other 01-10-2023 Evaluation note* Encounter Date Diagnosis Assessment Notes Treatment Notes Treatment Clinical Notes Mar, Restless leg syndrome (ICD-10 - G25.81) [facility] Other 12-16-2022 Evaluation note* Encounter Date Diagnosis Assessment Notes Treatment Notes Treatment Clinical Notes Feb, Anxiety (ICD-10 - F41.9) Feb,estless leg syndrome (ICD-10 - G25.81) Feb,Migraine variant with headache (ICD-10 - G43.809) [facility] Other 11-20-2022 Evaluation note* Encounter Date Diagnosis Assessment Notes Treatment Notes Treatment Clinical Notes Jan, Restless leg syndrome (ICD-10 - G25.81) Jan,Migraine variant with headache (ICD-10 - G43.809) [facility] Other 11-07-2022 Evaluation note* Encounter Date Diagnosis Assessment Notes Treatment Notes Treatment Clinical Notes Jan, Cervical pain (ICD-10 - M54.2) She is following with Dr. Rivas for evaluation, and he recommends that she have an x ray done of her cervical spine to rule out abnormalities. He feels she may have a bone spur in C4-5 or C5-6. Thiscould be putting pressure on the nerves that affect her hands. I am going to order an x ray and advised her that based on this she may have to go to physical therapy working towards an MRI. Jan,Neuropathy (ICD-10 - G62.9)X-ray was ordered to include with obliques and flexion/extension. Jan,nxiety (ICD-10 - F41.9)She does continue with above medication as directed. Jan,estless leg syndrome (ICD-10 - G25.81)An OARRS report was reviewed no discrepancies noted. Frequent appointments needed due to addiction potential. She does continue to use and benefit from the Klonopin. She does need to be seen again inthree months. Side effects/risks/benefits of medication were reviewed. Jan,Iron deficiency anemia (ICD-10 - D50.9)Provided her with an order to have her Iron level checked. Dr. Rivas felt that this needed to be checked again. She can call for results. She is going to take her Iron three times a week. [facility] Other 08-18-2022 Evaluation note* Encounter Date Diagnosis Assessment Notes Treatment Notes Treatment Clinical Notes Oct, Hyperglycemia (ICD-10 - R73.9) Discussed blood sugar results with patient today. Glucose is 103. HgA1C is 5.3 which is normal. Oct,Iron deficiency anemia (ICD-10 - D50.9)She does continue to take Iron three days a week. Her HGB is 13.2. Iron is 53. Ferritin is 28. TIBCis 440. Tranferrin is 314. At this time I do not recommend that she give blood. This is something that we will continue to monitor. She is to continue with the Iron three days a week. Oct,izzy (ICD-10 - R42)She voices that if she leans her head back she gets dizzy. She voices that since she had two shots together she lost hearing in her right ear. She has heard funny noises in her right ear. We discussed that this could be benign positional vertigo. She voices that it has been going on for a few weeks. A virus can cause this. She does not have signs of a stroke. I want her to keep me posted on this.She can turn her head from side to side without any issue, it is only when she looks up that she has this problem. If it continues then we will likely refer her to physical therapy to have her crystals reset. Nothing abnormal was seen in her ears on exam. I did offer to refer her to ENT but she would like to continue to monitor for now. Oct,Hyperlipidemia (ICD-10 - E78.5)Discussed cholesterol results with patient today. Total is 127. HDL is 59. LDL is 65. Triglyceridesare 59. VLDL is 12. I would like her to continue to monitor her intake of carbs and sugars. Stay active as tolerated. Oct,Hyponatremia (ICD-10 - E87.1)I encouraged her to continue to take her Sodium tablets twice a day. Oct,Hypertension (ICD-10 - I10)Blood pressure is controlled. Continue with above medication daily. Oct,estless leg syndrome (ICD-10 - G25.81)She does continue to use and benefit from the above medication. An OARRS report was reviewed, no dis crepancies noted. Frequent appointments needed due to addiction potential of medication. Side effects/risks/benefits of medication were reviewed. Oct,Weight gain (ICD-10 - R63.5)She voices that she is following with Dr. Rivas, she is now finishing the last of her three month prescription of Adipex. She was told that she needed to get out there and get moving to keep her metabolism going. She is going to take a one month break from seeing Dr. Rivas because she is so busy with her and his health issues. She voices that her weight has reached a plateau. Oct,Vitamin D deficiency (ICD-10 - E55.9)Her Vitamin D is 68.7. Continue with Vitamin D supplement. Oct,nxiety (ICD-10 - F41.9)She does continue to take above medication as directed. Oct,VT (supraventricular tachycardia) (ICD-10 - I47.1)She does continue to take above medication as directed. Oct,Migraine variant with headache (ICD-10 - G43.809)Provided her with a new prescription for the Zomig, she voices that she rarely uses that but if she does she may have to take up to three tablets. Side effects/risks/benefits of medication were reviewed. Oct,GERD (gastroesophageal reflux disease) (ICD-10 - K21.9)She does continue to take above medication as directed. Oct,heumatoid factor positive (ICD-10 - R76.8)She voices that she saw Dr. Lin for evaluation, voices that he wanted her to come off her heart medication (Metoprolol) and her Vitamin B complex. She was not satisfied with the visit and voices that Dr. Rivas gave her Naltrexone that she has made at [facility] and this has stopped the shocks in her hands/fingers. Oct,Nocturia (ICD-10 - R35.1) Oct,Fatty liver (ICD-10 - K76.0)Recommend she continue with her weight loss, watch intake of carbs and sugars. [facility] Other 06-30-2022 Hospital Discharge instructions Patient Education 09/12/2021 14:21:08 BMI for Adults BMI for Adults Body mass index (BMI) is a number that is calculated from a person's weight and height. BMI may help to estimate how much of a person's weight is composed of fat. BMI can help identify those who may be at higher risk for certain medical problems. How is BMI used with adults? BMI is used as a screening tool to identify possible weight problems. It is used to check whether aperson is obese, overweight, healthy weight, or underweight. How is BMI calculated? BMI measures your weight and compares it to your height. This can be done either in [place] ([place] or metric measurements. Note that charts are available to help you find your BMI quickly and easily without having to do these calculations yourself. To calculate your BMI in [place] measurements, your health care provider will: 1.Measure your weight in pounds (lb). 2.Multiply the number of pounds by 703. For example, for a person who weighs 180 lb, multiply that number by 703, which equals 126,540. 3.Measure your height in inches (in). Then multiply that number by itself to get a measurement called inches squared. For example, for a person who is 70 in tall, the inches squared measurement is 70 in x 70 in, which equals 4900 inches squared. 4.Divide the total from Step 2 (number of lb x 703) by the total from Step 3 (inches squared): 126,540 4900 = 25.8. This is your BMI. To calculate your BMI in metric measurements, your health care provider will: 1.Measure your weight in kilograms (kg). 2.Measure your height in meters (m). Then multiply that number by itself to get a measurement called meters squared. For example, for a person who is 1.75 m tall, the meters squared measurement is 1.75 m x 1.75 m, which is equal to 3.1 meters squared. 3.Divide the number of kilograms (your weight) by the meters squared number. In this example: 70 3.1 = 22.6. This is your BMI. How is BMI interpreted? To interpret your results, your health care provider will use BMI charts to identify whether you are underweight, normal weight, overweight, or obese. The following guidelines will be used: Underweight: BMI less than 18.5. Normal weight: BMI between 18.5 and 24.9. Overweight: BMI between 25 and 29.9. Obese: BMI of 30 and above. Please note: Weight includes both fat and muscle, so someone with a muscular build, such as an athlete, may havea BMI that is higher than 24.9. In cases like these, BMI is not an accurate measure of body fat. To determine if excess body fat is the cause of a BMI of 25 or higher, further assessments may needto be done by a health care provider. BMI is usually interpreted in the same way for men and women. Why is BMI a useful tool? BMI is useful in two ways: Identifying a weight problem that may be related to a medical condition, or that may increase the risk for medical problems. Promoting lifestyle and diet changes in order to reach a healthy weight. Summary Body mass index (BMI) is a number that is calculated from a person's weight and height. BMI may help to estimate how much of a person's weight is composed of fat. BMI can help identify those who may be at higher risk for certain medical problems. BMI can be measured using [place]ese measurements or metric measurements. To interpret your results, your health care provider will use BMI charts to identify whether you are underweight, normal weight, overweight, or obese. This information is not intended to replace advice given to you by your health care provider. Make sure you discuss any questions you have with your health care provider. Document Released: 11/11/2004 Document Revised: 02/12/2018 Document Reviewed: 01/13/2018 [employer] Patient Education 2020 [employer] 09/12/2021 14:21:05 Dizziness Dizziness Dizziness is a common problem. It is a feeling of unsteadiness or light- headedness. You may feel like you are about to faint. Dizziness can lead to injury if you stumble or fall. Anyone can become dizzy, but dizziness is more common in older adults. This condition can be caused by a number of things, including medicines, dehydration, or illness. Follow these instructions at home: Eating and drinking Drink enough fluid to keep your urine clear or pale yellow. This helps to keep you from becoming dehydrated. Try to drink more clear fluids, such as water. Do not drink alcohol. Limit your caffeine intake if told to do so by your health care provider. Check ingredients and nutrition facts to see if a food or beverage contains caffeine. Limit your salt (sodium) intake if told to do so by your health care provider. Check ingredients and nutrition facts to see if a food or beverage contains sodium. Activity Avoid making quick movements. ?Rise slowly from chairs and steady yourself until you feel okay. ?In the morning, first sit up on the side of the bed. When you feel okay, stand slowly while you hold onto something until you know that your balance is fine. If you need to machine pie maker one place for a long time, move your legs often. Tighten and relax the muscles in your legs while you are standing. Do not drive or use heavy machinery if you feel dizzy. Avoid bending down if you feel dizzy. Place items in your home so that they are easy for you to reach without leaning over. Lifestyle Do not use any products that contain nicotine or tobacco, such as cigarettes and e-cigarettes. If you need help quitting, ask your health care provider. Try to reduce your stress level by using methods such as yoga or meditation. Talk with your health care provider if you need help to manage your stress. General instructions Watch your dizziness for any changes. Take cvoj-mpa-dnitfwf and prescription medicines only as told by your health care provider. Talk with your health care provider if you think that your dizziness is caused by a medicine that you are taking. Tell a friend or a family member that you are feeling dizzy. If he or she notices any changes in your behavior, have this person call your health care provider. Keep all follow-up visits as told by your health care provider. This is important. Contact a health care provider if: Your dizziness does not go away. Your dizziness or light-headedness gets worse. You feel nauseous. You have reduced hearing. You have new symptoms. You are unsteady on your feet or you feel like the room is spinning. Get help right away if: You vomit or have diarrhea and are unable to eat or drink anything. You have problems talking, walking, swallowing, or using your arms, hands, or legs. You feel generally weak. You are not thinking clearly or you have trouble forming sentences. It may take a friend or family member to notice this. You have chest pain, abdominal pain, shortness of breath, or sweating. Your vision changes. You have any bleeding. You have a severe headache. You have neck pain or a stiff neck. You have a fever. These symptoms may represent a serious problem that is an emergency. Do not wait to see if the symptoms will go away. Get medical help right away. Call your local emergency services (911 in the [place] Do not drive yourself to the hospital. Summary Dizziness is a feeling of unsteadiness or light-headedness. This condition can be caused by a number of things, including medicines, dehydration, or illness. Anyone can become dizzy, but dizziness is more common in older adults. Drink enough fluid to keep your urine clear or pale yellow. Do not drink alcohol. Avoid making quick movements if you feel dizzy. Monitor your dizziness for any changes. This information is not intended to replace advice given to you by your health care provider. Make sure you discuss any questions you have with your health care provider. Document Released: 08/26/2001 Document Revised: 03/05/2018 Document Reviewed: 04/04/2017 [employer] Patient Education 2019 [email or web address] Follow Up Care 09/12/2021 13:16:42 With:Mayco Velasquez DO, FAM Address: [address] [place], [place] [address] [address]- When: Unknown [facility] 05-25-2022 Evaluation note* Encounter Date Diagnosis Assessment Notes Treatment Notes Treatment Clinical Notes July, Restless leg syndrome (ICD-10 - G25.81) [facility] Other 05-25-2022 Evaluation note* Encounter Date Diagnosis Assessment Notes Treatment Notes Treatment Clinical Notes July, Iron deficiency anemia (ICD-10 - D50.9) Her HGB is 12.8. Her Ferritin is 31. Iron is 45. She is taking the Iron supplement three days a week along with Vitamin C. At this time I did recommend that she continue with this until seen again inAugu (2021). July,estless leg syndrome (ICD-10 - G25.81)An OARRS report was reviewed no discrepancies noted. She does continue to use and benefit from the Klonopin. Frequent appointments needed due to addiction potential of medication. She can call for refills on the medication but needs to be seen every three months for evaluation. Side effects/risks/benefits of medication were reviewed. July,Leukopenia (ICD-10 - D72.819)Her white blood cell count was 2.8 when checked. To her knowledge she has not had COVID-19 but she admits she had something about two weeks ago. I explained to her that a white blood cell count canfluctuate. This level is likely lower in response to whatever she was fighting two weeks ago. Because her level is not below 2 and because her neutrophil was not below 0.5 then we do not need to refer her to a specialist and can continue to monitor. Right now it appears she was fighting a virus. She will have lab repeated in three months and I do not feel we need to repeat lab any sooner than this. She is comfortable with this plan. July,nxiety (ICD-10 - F41.9) July,2Other12:53 PM -1:10 PM [address] voices that Dr[address] Rivas put her on Gabapentin because her fingers are numb, she is taking a low dose. She voices that this is helping the numbness in her fingers. She did have lab work drawn for Dr. España and missed her appointment so she won't see him until September (2021) due to a mix up with the appointment. She was given the Cologuard test from her insurance company and completed the test and it was negative. [facility] Other 05-17-2022 Evaluation + Plan note Diagnostic Tests Pending * Rheumatoid Factor Quantitative 07/30/21 * CCP Antibodies IgG/IgA 07/30/21 [facility]05-05-2022 Evaluation note* Encounter Date Diagnosis Assessment Notes Treatment Notes Treatment Clinical Notes July, Restless leg syndrome (ICD-10 - G25.81) [facility] Other 03-04-2022 Evaluation note* Encounter Date Diagnosis Assessment Notes Treatment Notes Treatment Clinical Notes May, Restless leg syndrome (ICD-10 - G25.81) [facility] Other 02-25-2022 Evaluation note* Encounter Date Diagnosis Assessment Notes Treatment Notes Treatment Clinical Notes Apr, Hypertension (ICD-10 - I10) At this time she is to continue with above medication. Apr,Iron deficiency anemia (ICD-10 - D50.9) She voices that her iron was too high so she stopped taking her Iron. We discussed that her HGB is 11.6. Iron is 30. Ferritin is 10. Now her iron is too low. I would like her to take her Iron three days per week. I want her to repeat lab in three months. She would like to donate blood again but I want her to wait a few months and asked her not to have blood drawn close to when she donated blood. Apr,Hyperlipidemia (ICD-10 - E78.5) Discussed cholesterol results with patient today. Total is 143. HDL is 59. LDL is 78. Triglyceridesare 105. Readings are at goal. I would like her to continue with above medication and watch her intake of carbs and sugars. Stay active. Apr,Hyperglycemia (ICD-10 - R73.9) Discussed blood sugar results with patient today. Glucose is 97. HgA1C is 5.7 which is at the higher end of normal. She is to continue to monitor her intake of carbs and sugars. She has been working on weight loss and is encouraged to continue with this. She expects to become more active as the weather begins to improve. Apr,Vitamin D deficiency (ICD-10 - E55.9) Her Vitamin D level is 42.8. Continue with Vitamin D supplement. Apr,Hyponatremia (ICD-10 - E87.1) Her sodium level is 134. Continue with above medication. Apr,estless leg syndrome (ICD-10 - G25.81) Apr,Nocturia (ICD-10 - R35.1) Apr,VT (supraventricular tachycardia) (ICD-10 - I47.1) Continue with above medication daily as directed. Apr,nxiety (ICD-10 - F41.9) Continue with above medication daily as directed. Apr,GERD (gastroesophageal reflux disease) (ICD-10 - K21.9) Continue with above medication as directed. Apr,Migraine variant with headache (ICD-10 - G43.809) Continue with above medications, follow with specialist as directed. Apr,heumatoid factor positive (ICD-10 - R76.8) Continue with above medication. She is not able to follow with Dr. Weaver any longer but will see Dr. Thacker next week. She voices that Dr. Rivas wanted her to discuss the numbness in her hands with the [employer]fl player. She saw Dr. Helms and discussed this with her but the EMG that was done it did not show any nerve damage so she wanted her to discuss this with her nfl player. She will see Shantanu Thacker next week so she will discuss the medication Dr. Rivas mentioned with him. If Dr. Thackerwon't prescribe it then Dr. Rivas will. She voices that both her hands are numb at the ends of herfingers. She has to wear gloves because the ends of her hands hurt so badly. 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 Apr,Weight loss (ICD-10 - R63.4) She is following with Dr. Rivas and completed treatment with Adipex but cannot go on it again for three months. She is trying to watch her diet but admits it is difficult because she always wants toget something to eat. She will try to monitor her diet. Her TSH is normal at 1.69. Apr,ther 9:17 AM - 9:38 AM She voices that Dr. Rivas told her to stop taking the Ivermectin this week because it is over with (COVID-19) and to keep it on hand in case she begins to have any symptoms. [facility] Other 01-17-2022 Evaluation note* Encounter Date Diagnosis Assessment Notes Treatment Notes Treatment Clinical Notes Mar, Restless leg syndrome (ICD-10 - G25.81) [facility] Other 12-29-2021 Evaluation note* Encounter Date Diagnosis Assessment Notes Treatment Notes Treatment Clinical Notes Feb, Restless leg syndrome (ICD-10 - G25.81) [facility] Other 11-10-2021 Evaluation note* Encounter Date Diagnosis Assessment Notes Treatment Notes Treatment Clinical Notes Jan, Restless leg syndrome (ICD-10 - G25.81) An OARRS report was reviewed, no discrepancies noted. She does continue to use and benefit from theKlonopin. Frequent appointments needed due to addiction potential of medication. I did provide her with a new prescription today. Side effects/risks/benefits of medication were reviewed. She can callfor refills in between visits but needs to be seen again in three months. Jan,nxiety (ICD-10 - F41.9) Continue with above medication daily as directed. Jan,heumatoid factor positive (ICD-10 - R76.8) She has an appointment to see Dr. Weaver but cannot recall when it is. Jan,Numbness and tingling in hands (ICD-10 - R20.2)left worse than right She believes Dr. Helms did an EMG within the past year but is not sure. She voices that her left hand is worse than the right. Her left hand has worsened over at least the last year. She has seen Dr. Cabrera in the past. I did recommend an updated EMG be done. She agrees and an order is provided. She voices that she tries to use the hand and is told that using the hand can make it worse. She should continue to wear the brace at night to allow the nerve to heal. She does not need to wear the brace during the day. Jan,Weight loss (ICD-10 - R63.4) She is not taking Adipex right now, she was getting this from Dr. Rivas. She voices that her weight is alternating between 3 pounds up and down. We discussed that seven months from her last prescription she can have the medication again if her BMI qualifies. She has lost 30 pounds on our scale in the last nine months. She is to continue with the lifestyle changes that she has made to help keep the weight she has lost off. Jan,OtherShe voices that she will not get the COVID-19 vaccine. She discussed Ivermectin with Dr. Rob bentley order this to have on hand to use if needed. [facility] Other 02-08-2011 History general Narrative - Reported* Type Description Date Medical History peptic ulcer disease Medical Historyrestless leg syndromeMedical Historymigraine headachesMedical HistoryHTNMedical HistoryosteopeniaMedical HistoryStress Test 8-2-97Upnxive HistoryEGD 04-26 Dr. TenorioyMedical HistoryEMG 04-26 Dr. HelmsMedical History Stable Noncalcified Pulmonary nodules bilaterally-saw Dr. Mcrae, we will plan on recheck CT Scan of Chest in fall per patientMedical HistoryMRI Brain 02-11-12; [facility] Medical HistoryHepatitis A Step 1 HDMedical HistoryHepatitis A Step 2 ECHD Medical HistoryZostavax 08-20-11; HCHDMedical HistoryTyphoid 08-20-11; [facility] 12-27-12; (right upper lobe infiltrate has resolved) [facility] Medical HistoryCT Chest 02-15-13; [facility] HistoryPneumovax 06/2013 ([facility])- Due again 06/2018Medical HistoryColonoscopy, essentially normal [address] Foley repeat [address] Foley 2010Medical HistoryDr Cabrera - shave shoulder bone RTMedical HistorySVTMedical Historypneumothorax rt lung Medical Xdqawmf43/2/2020 FIT Test/ NegativeSurgical Yycsiuchfghpwbtidulx2365 Surgical Zhfhbynplptrxrtuohp7288Hjehnrck HistoryT & ASurgical HistoryEGD Dr. TenorioAnexyv7221Eoervgqd HistoryColonoscopy, essentially normal, Dr. TenorioNtsmxs4294 Surgical HistoryRt shoulder surgery - Dr Cabrera1/2016Surgical HistorySVT [facility]10/2015Surgical HistoryEKG - Dr Zamora12/2015[facility]Surgical Historyhammer toe surgery - Dr Roth03/2017Surgical History Dr Cabrera [place] [address]Ecparaff Historycholecystectomy-2018 Surgical Historyright total knee dqbbeqddee40/2019Surgical HistoryFIT Test /Ucyhwykf71/2/2020Hospitalization Historysee above surgical history Hospitalization [id number] [facility] Other 02-08-2011 History general Narrative - Reported* Type Description Date Medical History peptic ulcer disease Medical Historyrestless leg syndromeMedical Historymigraine headachesMedical HistoryHTNMedical HistoryosteopeniaMedical HistoryStress Test 7-7-32Kehojcl HistoryEGD 04-26 Dr. TenorioyMedical HistoryEMG - Dr. HelmsMedical History Stable Noncalcified Pulmonary nodules bilaterally-saw Dr. Mcrae, we will plan on recheck CT Scan of Chest in Fall of 2011 per patientMedical HistoryMRI Brain 02-11-12; [facility]11; [facility] Medical HistoryHepatitis A Step 1 HCHDMedical HistoryHepatitis A Step 2 ECHD Medical HistoryZostavax 08-20-11; HCHDMedical HistoryTyphoid 08-20-11; HCHDMedical HistoryChest X-Ray 12-27-12; (right upper lobe infiltrate has resolved) [facility] Medical HistoryCT Chest 02-15-13; [facility]Pneumovax 06/2013 ([facility])- Due again 06/2018Medical HistoryColonoscopy, essentially normal 2008 Dr. Foley repeat [address] Foley 2010Medical HistoryDr Deborah - shave shoulder bone RTMedical HistorySVTMedical Historypneumothorax rt lung Medical Lmfqwxl21/2/2020 FIT Test/ NegativeSurgical Xvatjlfsdhugyortcsxn8508 Surgical Fybxrirwxysdiowtcvn7080Mdlinapy HistoryT & ASurgical HistoryEGD Dr. TenorioApomht1827Ohlqutqj HistoryColonoscopy, essentially normal, Dr. TenorioOjdbjx5854 Surgical HistoryRt shoulder surgery - Dr Cabrera1/2015Surgical HistorySVT lugo Titus12/2015Surgical HistoryEKG - Dr Zamora02/2016Surgical HistoryFisher Jame - SVT1Surgical Historyhammer toe surgery - Dr Roth/2017Surgical History Dr Cabrera [place] [id number] Historycholecystectomy / Dr. Reina Surgical Historyright total knee fjqefqwbum02/2019Surgical HistoryFIT Test /Jmkgmdsg56/2/2020Hospitalization Historysee above surgical history Hospitalization [id number] [facility] ZipList Other Evaluation noteNo InformationNortGeisinger-Bloomsburg Hospital ZipList Other Evaluation noteNo assessment information available [facility] Work Phone: Evaluation note* Diagnosis Primary osteoarthritis involving multiple joints- Primary Lumbar degenerative disc disease Degeneration of lumbar or lumbosacral intervertebral disc Long-term use of Plaquenil Encounter for long-term (current) use of other medications [facility]* Diagnosis Primary osteoarthritis involving multiple joints [facility] this encounter [facility]* Diagnosis Onset Date Resolution Status Cystitis acuteHyperglycemiaacuteHyperlipidemiaacuteIron deficiency anemiaacuteNeuropathy acuteOsteoarthritisacuteRestless leg syndromeacuteVitamin D deficiencyacute [facility] Work Phone: Evaluation note* Diagnosis Primary osteoarthritis involving multiple joints [facility] Diagnosis Radiculopathy, lumbar region- Primary Thoracic or lumbosacral neuritis or radiculitis, unspecified Spondylolisthesis of lumbar region Acquired spondylolisthesis documented in this encounter [facility]* Diagnosis Other spondylosis with radiculopathy, lumbar region [facility]* Diagnosis Radiculopathy, lumbar region- Primary Thoracic or lumbosacral neuritis or radiculitis, unspecified [facility] Diagnosis Primary osteoarthritis involving multiple joints [facility] Lumbar radiculopathy- Primary Thoracic or lumbosacral neuritis or radiculitis, unspecified Carpal tunnel syndrome of left wrist Carpal tunnel syndrome Left hand weakness Muscle weakness (generalized) Disturbance of skin sensation documented [facility] this encounter [facility]* Diagnosis Numbness- Primary Disturbance of skin sensation documented in this encounter [facility]* Diagnosis Carpal tunnel syndrome of left wrist Carpal tunnel syndrome Left hand weakness Muscle weakness (generalized) documented in this encounter [facility]* Diagnosis Essential hypertension- Primary Unspecified essential hypertension Supraventricular tachycardia (CMS-HCC) Other specified cardiac dysrhythmias Mixed hyperlipidemia BMI 35.0-35.9,adult Never smoked tobacco Bilateral lower extremity edema Rheumatoid arthritis, involving unspecified site, unspecified whether rheumatoid factor present (Multi) documented in this encounter [facility] Work Phone: Evaluation note* Diagnosis Restless legs- Primary Restless legs syndrome (RLS) Paresthesia of skin Anesthesia of skin Disturbance of skin sensation Chronic left-sided low back pain with left-sided sciatica [facility] Presence of right artificial knee joint- Primary Primary osteoarthritis of left knee [facility] Diagnosis Carpal tunnel syndrome, left- Primary Carpal tunnel syndrome documented in this encounter [facility] note* Diagnosis Pre-op examination- Primary Preoperative examination, unspecified Other migraine without status migrainosus, not intractable Essential hypertension Unspecified essential hypertension Hyperlipidemia, unspecified hyperlipidemia type Paroxysmal SVT (supraventricular tachycardia) (HCC) Paroxysmal supraventricular tachycardia Gastroesophageal reflux disease without esophagitis Esophageal reflux Other iron deficiency anemia Rheumatoid arthritis, involving unspecified site, unspecified whether rheumatoid factor present (HCC) Obesity (BMI 30.0-34.9) Obesity, unspecified Carpal tunnel syndrome, left Carpal tunnel syndrome * Assessment & Plan Note - Vaibhav Rodriguez APRN.CNP - 05/18/2024 12:25 PM EST Associated Problem(s): Obesity (BMI 30.0-34.9) Assessment: Body mass index is 32.91 kg/m . * Assessment & Plan Note - Vaibhav Rodriguez APRN.CNP - 05/18/2024 12:24 PM EST Associated Problem(s): Rheumatoid arthritis (HCC) Assessment: stable with current medication regimen * Assessment & Plan Note - Vaibhav Rodriguez APRN.CNP - 05/18/2024 12:24 PM EST Associated Problem(s): Iron deficiency anemia Assessment: Stable. Denies bleeding. Labs 05/12/24 Hgb 13.5 Hct 39.1 * Assessment & Plan Note - Vaibhav Rodriguez APRN.CNP - 05/18/2024 12:23 PM EST Associated Problem(s): Gastroesophageal reflux disease Assessment: Managed and stable with current medication. Denies difficulty swallowing or any bleeding. * Assessment & Plan Note - Vaibhav Rodriguez APRN.CNP - 05/18/2024 12:23 PM EST Associated Problem(s): Paroxysmal SVT (supraventricular tachycardia) (HCC) Assessment: stable, asymptomatic, RRR today Follows with cardiology, Dr. Deb Zamora. Was optimized for knee surgery per 03/18/24 telephone encounter * Assessment & Plan Note - Vaibhav Rodriguez APRN.CNP - 05/18/2024 12:22 PM EST Associated Problem(s): Hyperlipidemia Assessment: stable with current medication regimen * Assessment & Plan Note - Vaibhav Rodriguez APRN.CNP - 05/18/2024 12:22 PM EST Associated Problem(s): Essential hypertension Assessment: stable and compliant with current medications Last 5 Encounter BP Readings: Date: BP: 05/18/2024 132/85 11/25/2023 122/87 08/17/2023 130/79 08/07/2022 124/71 * Assessment & Plan Note - Vaibhav Rodriguez APRN.CNP - 05/18/2024 12:22 PM EST Associated Problem(s): Migraines Assessment: stable with current medication regimen [facility] Diagnosis Pre-op examination- Primary Preoperative examination, unspecified Other migraine without status migrainosus, not intractable Essential hypertension Unspecified essential hypertension Hyperlipidemia, unspecified hyperlipidemia type Paroxysmal SVT (supraventricular tachycardia) (HCC) Paroxysmal supraventricular tachycardia Gastroesophageal reflux disease without esophagitis Esophageal reflux Other iron deficiency anemia Rheumatoid arthritis, involving unspecified site, unspecified whether rheumatoid factor present (HCC) Obesity (BMI 30.0-34.9) Obesity, unspecified Cannabis use without complication Cannabis abuse, unspecified Post-operative state- Primary Other postprocedural status [facility]* Diagnosis Essential hypertension- Primary Unspecified essential hypertension Mixed hyperlipidemia Supraventricular tachycardia Other specified cardiac dysrhythmias Never smoked tobacco BMI 29.0-29.9,adult Overweight documented in this encounter [facility] Work Phone: Evaluation note* Diagnosis Onset Date Resolution Status Admit Date Anxiety acuteSeptember 2024 8:01amEdemaacuteSeptember 2024 8:01am HyperglycemiaacuteSeptember 2024 8:01amHyperlipidemiaacuteSeptember 2024 8:01amHypertensionacuteSeptember 2024 8:01amIron deficiency anemia acuteSept2024 8:01amLumbar degenerative disc diseaseacuteSept2024 8:01amRestless leg syndromeacuteSept2024 8:01amSVT (supraventricular tachycardia)acuteSept2024 8:01amUTI (urinary tract infection)acuteSept2024 8:01amVitamin D deficiencyacuteSept2024 8:01amWeight lossacuteSept2024 8:01am [facility] Work Phone: Evaluation note* Diagnosis Special screening for malignant neoplasms, colon- Primary [facility] Narrative No data available for this section [facility] No data available for this section [facility] Additional Instructions Take Zofran as prescribed for nausea. Increase your intake of fluids and rest. Take Motrin Tylenol as needed for any recurrent pain. Follow-up with your primary care provider for ongoing management of anxiety.[facility] Work Phone: Progress note No data available for this section [facility] Reason for referral (narrative)* Diagnostic Procedure Only (Routine) - ClosedSpecialtyDiagnoses / ProceduresReferred By Contact Referred To ContactXR IMAGING Diagnoses Other spondylosis with radiculopathy, lumbar region Procedures XR LUMBAR MOTION 4V AP/LAT/ FLEX/EXT RADEX SPINE LUMBOSACRAL MINIMUM 4 VIEWS Brisa Lynn APRN.CNP [address] [place] [address] Xr Imaging [place] [address] Referral IDStatusReasonStart DateExpiration DateVisits RequestedVisits [id number] Auto-Generated Referral / [facility] for referral (narrative)* Outpatient Procedure (Routine) - AuthorizedSpecialtyDiagnoses / ProceduresReferred By ContactReferred To ContactNEUROLOGICAL INSTITUTE Diagnoses Disturbance of skin sensation Procedures EMG(NEURO/NI) NERVE CONDUCTION STUDIES 9-[place] [address] [place] [id number] [facility] [address] [address] [place] [address] Referral IDStatusReasonStart DateExpiration DateVisits RequestedVisits [id number] Auto-Generated Referral * Diagnostic Procedure Only (Routine) - New RequestSpecialtyDiagnoses / ProceduresReferred By ContactReferred To ContactXR IMAGING Diagnoses Carpal tunnel syndrome of left wrist Left hand weakness Procedures XR CERV OTHER 4V AP/LAT/OBL RADEX SPINE CERVICAL 4 [place] [address] [place] [id number] [facility] [place] [address] Referral IDStatusReasonStart DateExpiration DateVisits RequestedVisits [id number] Auto-Generated Referral / [facility] for referral (narrative)* Diagnostic Procedure Only (Routine) - ClosedSpecialtyDiagnoses / ProceduresReferred By ContactReferred To ContactXR IMAGING Diagnoses Carpal tunnel syndrome of left wrist Left hand weakness Procedures XR CERV OTHER 4V AP/LAT/OBL RADEX SPINE CERVICAL 4 [place] [address] [place] [id number] Xr Imaging [facility] Referral IDStatusReasonStart DateExpiration DateVisits RequestedVisits [id number] Auto-Generated Referral [facility] for referral (narrative)* Consultation (Routine) - AuthorizedSpecialtyDiagnoses / ProceduresReferred By ContactReferred To ContactCardiology Diagnoses Essential hypertension Procedures Follow Up In Cardiology Deb Zamora MD [address] [facility] [address] [place] [address] Deb Zamora MD [address] [facility] [address] [place] [address] Referral IDStatusReasonStart DateExpiration DateVisits RequestedVisits [id number]/9/20247/ T [facility] Work Phone: Rephxm for referral (narrative)No reason for referral [facility] Work Phone: Reason for visit Narrative* Outpatient Procedure (Routine) - ClosedSpecialtyDiagnoses / ProceduresReferred By ContactReferred To ContactNEUROLOGICAL INSTITUTE Diagnoses Disturbance of skin sensation Procedures EMG(NEURO/NI) NERVE CONDUCTION STUDIES 9-[place] [address] [place] [id number] [address] [place] [address] [place] [address] Referral IDStatusReasonSaint Augustine DateExpiration DateVisits RequestedVisits [id number] Auto-Generated Referral / [facility] for visit Narrative* Diagnostic Procedure Only (Routine) - ClosedSpecialtyDiagnoses / ProceduresReferred By ContactReferred To Contact XR IMAGING Diagnoses Carpal tunnel syndrome of left wrist Left hand weakness Procedures XR CERV OTHER 4V AP/LAT/OBL RADEX SPINE CERVICAL 4 [place] [address] [place] [id number] Xr Imaging [place] [address] Referral IDStatusReasonStart DateExpiration DateVisits RequestedVisits [id number] Auto-Generated Referral [facility] Summary Purpose Family History No Family History Records FoundUnknown Family Member Name Dates Details Family history of malignant neoplasm: Mother(V16.9, Z80.9) Status:ActiveFamily history of malignant neoplasm of breast: Daughter(V16.3, Z80.3) Status:ActiveIrregular heart rate: Mother Status:ActiveS/P CABG x 4: Father(V45.81, Z95.1) Status:Active Unknown Family Member Name Dates Details Family history of malignant neoplasm: Mother(V16.9, Z80.9) Status:ActiveFamily history of malignant neoplasm of breast: Daughter(V16.3, Z80.3) Status:ActiveIrregular heart rate: Mother Status:ActiveS/P CABG x 4: Father(V45.81, Z95.1) Status:Active Relationship Condition Age at Onset Recorded Date/T gonzales daughter Malignant neoplasm Unknown fatherDeceasedUnknownHeart diseaseUnknowngrandparentDeceasedUnknownMalignant neoplasmUnknowngrandparentMalignant neoplasmUnknownNot SpecifiedDeceasedUnknown Relationship Condition Age at Onset Recorded Date/T gonzales daughter Malignant neoplasm Unknown fatherDeceasedUnknownHeart diseaseUnknowngrandparentDeceasedUnknownMalignant neoplasmUnknowngrandparentMalignant neoplasmUnknownmotherDeceasedUnknown Advance Directives No Advanced Directives Records Found Advance Directive Response Recorded Date/ Time Advance Directives No February 1:31pm Advance Directive Response Recorded Date/ Time Advance Directives No February 12:31pm Advance Directive Response Recorded Date/ Time Advance Directives No August 19 8:46am Advance Directive Response Recorded Date/ Time Advance Directives No August 19 7:46am Reason for Referral SpecialtyDiagnoses / ProceduresReferred By ContactReferred To Contact Diagnoses Chronic left-sided low back pain with left-sided sciatica Alyssa Whelan, CHAN [address] [place] [address] Referral IDStatusReasonStart DateExpiration DateVisits RequestedVisits [id number] Review/ Reason appt pt needs cons ult to evaluate dysphagia Diagnosis 1 Dysphagia (R13.10) [facility] Referring Provider First Name Mayco Referring Provider Last Name Elainejessica Referring Provider Specialty Family Prac durga Referred Organization [facility] Referred Provider Bharath Bajwa [place] Address ,[place],[address] Referred Provider Specialty Otolaryngolo gy Referral Priority Routine General Notes Ria Edwards 01/01/2023 09:59:00 AM > referral hard faxed to Dr Bajwa's office with visit note and insurance card. pt understands she will be contacted to schedule this appt. Reason appt pt needs cons ult to discuss sleep issues Diagnosis 1 Insomnia (G47.00) Referral Organization [facility] Referring Provider First Name Mayco Referring Provider Last Name Ron Referring Provider Specialty Family Prac durga Referred Organization [facility] Referred Provider Mayco Espino Referred Address [address] [place],[address] Referred Provider Specialty Sleep Medici ne Referral Priority Routine General Notes Ria Edwards 11/10/2022 05:02:32 PM > [facility] sleep lab referral form faxed to scheduling with visit note, med list and demographics. pt understands she will be contacted to schedule this appt. Reason appt Please conta ct pt to schedule an appt consult for eval and treatment of RA Diagnosis 1 Rheumatoid arthritis (M06.9) [facility] Referring Provider First Name Mayco Referring Provider Last Name Elainejessica Referring Provider Specialty Family Prac durga Referred Organization [facility] Referred Provider Belinda Lin Referred Address [address] [place],[address] Referred Provider Specialty Rheumatology Referral Priority Routine General Notes Ria Edwards 03/25/2021 03:35:19 PM > referral hard faxed with office note, Dr Weaver visit note, Dr Helms labs and insurance card. pt understands she will be contacted to schedule this appt. Chief Complaint * SUMA SCOTT is being seen for an annual follow-up of. * Patient was in the office for annual follow-up for the problems noted below. She has been going through stress at home due to massive stroke and has been that has made life more difficult. Fortunately did not have any cardiac arrhythmias or other complaints. Blood pressure under excellent control. She had recent laboratory reviewed with her with no concerns noted. Also had lipid profile earlier this year which we requested from the hospital. Her weight remains above target something about her attention. Emphasized need for low calorie diet. Examination otherwise was unremarkable. * ASSESSMENT AND PLAN: * 1. Hypertension, under control, no side effect of medications. * 2. Hyperlipidemia, on statin therapy with simvastatin. Lipid profile done earlier this year was requested. * 3. supraventricular tachycardia , presently managed on beta phil therapy. Patient has infrequentbreakthrough * 4. Mild obesity. Encouraged the patient to continue to bring her weight under control with diet andexercise. * Deb Zamora MD, FACC * SUMA SCOTT is being seen for an annual follow-up of. * Patient is in the office for follow-up for the problems noted below. She has no indication of recurrent SVTs and has no dyspnea or chest pain. Her pressure is under excellent control. She follows with her PCP and also with rheumatology in [place] and has been on hydroxychloroquine and stable. She gabriel ears to have neuropathy in her fingers where she lost sensation but has excellent pulses. Her weight is 11 pounds above last year's visit. This is due to inactivity is. The patient has stress relatedto her 's illness Noah who is a patient of mine with multiple medical problems. She was noted to be taking aspirin which I do not find indication for therefore it was discontinued. I reviewedwith her her last labs from April 2022 which are excellent. Her examination is only remarkable for class I obesity. * ASSESSMENT AND PLAN: * 1. Hypertension, under control, currently on amlodipine and metoprolol, no side effect of medications. * 2. Hyperlipidemia, on statin therapy with simvastatin. Lipid profile done earlier this year was excellent * 3. History of supraventricular tachycardia , presently managed on beta phil therapy. No recurrences * 4. Class I obesity. Encouraged the patient to continue to bring her weight under control with diet and exercise. * 5. Rheumatoid arthritis on hydroxychloroquine stable * Deb Zamora MD, [facility] Chief Complaint and Reason for Visit Chief Complaint Screening Chief Complaint E87.1 D50.9 R63.5 E5 5.9 E78.5 R35.1 Chief Complaint med refill R73.9 D50.9 E55.9 R63.5 E87.1 R35.1 N30.90 Amb Documentation n30.90Reason for VisitAnxiety Iron deficiency anemia Restless leg syndrome Chief Complaint N30.90 Amb Documentation n30.90 n30.90 telephone/med refillReason for VisitCystitis Hyperglycemia Hyperlipidemia Iron deficiency anemia Neuropathy Osteoarthritis Restless leg syndrome Vitamin D deficiency Chief Complaint telephone/med refill [id number] for VisitCystitis Hyperglycemia Hyperlipidemia Iron deficiency anemia Neuropathy Osteoarthritis Restless leg syndrome Vitamin D deficiency Chief Complaint telephone/med refill I10 ScreeningReason for VisitCystitis Hyperglycemia Hyperlipidemia Iron deficiency anemia Neuropathy Osteoarthritis Restless leg syndrome Vitamin D deficiency Chief Complaint telephone/med refill I10 Screening sciatic pain ltReason for VisitCystitis Hyperglycemia Hyperlipidemia Iron deficiency anemia Neuropathy Osteoarthritis Restless leg syndrome Vitamin D deficiency Lumbar degenerative disc disease Chief Complaint I10 Screening sciatic pain lt D50.9 E78.5 N30.90 R73.9 Z79.899Reason for VisitLumbar degenerative disc disease Chief Complaint I10 Screening sciatic pain lt D50.9 E78.5 N30.90 R73.9 Z79.899 med refill/ review labReason for VisitLumbar degenerative disc disease Anxiety Fatty liver Hyperglycemia Hyperlipidemia Hypertension Iron deficiency anemia Lumbar degenerative disc disease Restless leg syndrome SVT (supraventricular tachycardia) Vitamin D deficiency Chief Complaint Admit Date Amb Documentation January 18, 2024 1 :56pm telephone/med refill March 01, 2024 8:25am M25.562 March 01, 2024 4:30pm M85.88 April 07, 2024 8 :13am Reason for Visit Admit Date Anxiety March 01, 2024 8:25am Knee pain, left March 01, 2024 8:25am Lumbar degenerative disc disease Decembe r 2023 8:25am Numbness and tingling in left hand Decem jo ann 2023 8:25am Chief Complaint Admit Date telephone/med refill March 01, 2024 8:25am M25.562 March 01, 2024 4:30pm M85.88 April 07, 2024 8 :13am e78.5 e55.9 r63.5 z79.899 d50.9 r63.5 Fe bruary 2024 8:58am Chief Complaint Admit Date M85.88 April 07, 2024 8 :13am e78.5 e55.9 r63.5 z79.899 d50.9 r63.5 Fe bruary 2024 8:58am review labs/med refill June 01, 2024 7:58am Reason for Visit Admit Date Anxiety June 01, 2024 7:5 8am Carpal tunnel syndrome of left wrist May 7:58am Fatty liver June 01, 2024 7:5 8am Hyperglycemia June 01, 2024 7:5 8am Hyperlipidemia June 01, 2024 7:5 8am Hypertension June 01, 2024 7:5 8am Insomnia June 01, 2024 7:5 8am Iron deficiency anemia June 01, 2024 7:58am Restless leg syndrome June 01, 2024 7 :58am SVT (supraventricular tachycardia) June 01, 2024 7:58am Vitamin D deficiency June 01, 2024 7: 58am Chief Complaint Admit Date e78.5 e55.9 r63.5 z79.899 d50.9 r63.5 Fe bruary 2024 8:58am review labs/med refill June 01, 2024 7:58am Nausea, Bilat Hands/Feet Swelling, SOB, hx SVT July 17, 2024 11:33pm Chief Complaint Admit Date telephone/med refill August 31, 2024 9:4 7am Screening October 19, 2024 8:0 7am Reason for Visit Admit Date Restless leg syndrome August 31, 2024 9: 47am Rheumatoid arthritis August 31, 2024 9:4 7am Chief Complaint Admit Date telephone/med refill August 31, 2024 9:4 7am Screening October 19, 2024 8:0 7am R73.9, N30.90, E55.9, Z79.899, E78.5 Sep tember 2024 8:16am Chief Complaint Admit Date telephone/med refill August 31, 2024 9:4 7am Screening October 19, 2024 8:0 7am R73.9, N30.90, E55.9, Z79.899, E78.5 Nov [facility]2024 8:16am Referral Order November 23, 2024 1:02pm N39.0 November 23, 2024 1:15pm Chief Complaint Admit Date Screening October 19, 2024 8:0 7am R73.9, N30.90, E55.9, Z79.899, E78.5 Sep [facility] 2024 8:16am Referral Order November 23, 2024 1:02pm N39.0 November 23, 2024 1:15pm review labs/med refill December 02 8:01am Reason for Visit Admit Date Anxiety December 02, 2024 8:01am Edema December 02, 2024 8:01am Hyperglycemia December 02, 2024 8:01am Hyperlipidemia December 02, 2024 8:01am Hypertension December 02, 2024 8:01am Iron deficiency anemia December 02 025 8:01am Lumbar degenerative disc disease [facility] 2024 8:01am Restless leg syndrome December 02 8:01am SVT (supraventricular tachycardia) [facility] 2024 8:01am UTI (urinary tract infection) December 02, 2024 8:01am Vitamin D deficiency December 02 8:01am Weight loss December 02, 2024 8:01am Chief Complaint Admit Date Screening October 19, 2024 8:0 7am R73.9, N30.90, E55.9, Z79.899, E78.5 Nov [facility]2024 8:16am Referral Order November 23, 2024 1:02pm N39.0 November 23, 2024 1:15pm review labs/med refill December 02 025 8:01am N39.0 December 05, 2024 12:37pm Chief Complaint Admit Date Screening October 19, 2024 8:0 7am R73.9, N30.90, E55.9, Z79.899, E78.5 Sep [facility]2024 8:16am Referral Order November 23, 2024 1:02pm N39.0 November 23, 2024 1:15pm review labs/med refill December 02, 025 8:01am N39.0 December 05, 2024 12:37pm i49.9 r06.02 January 09, 2025 7 :33am Additional Source Comments INFORMATION SOURCE (unrecogn ized section and content) DATE CREATED AUTHOR 10/02/2018 [facility] DATE CREATED AUTHOR AUTHOR'S ORGANIZ ATION 09/23/2022 [facility] DATE CREATED AUTHOR AUTHOR'S ORGANIZ ATION 09/23/2022 [facility] DATE CREATED AUTHOR AUTHOR'S ORGANIZ ATION 10/23/2022 [facility] DATE CREATED AUTHOR AUTHOR'S ORGANIZ ATION 12/23/2023 [facility] DATE CREATED AUTHOR AUTHOR'S ORGANIZ ATION 05/22/[address] [facility] DATE CREATED AUTHOR AUTHOR'S ORGANIZ ATION 06/03/2024 [facility] DATE CREATED AUTHOR AUTHOR'S ORGANIZ ATION 06/09/2024 [facility] DATE CREATED AUTHOR AUTHOR'S ORGANIZ ATION 09/25/2024 [facility] DATE CREATED AUTHOR AUTHOR'S ORGANIZ ATION 01/03/2025 [facility] EPIC DATE CREATED AUTHOR AUTHOR'S ORGANIZ ATION 01/14/2025 [facility] REASON FOR VISIT (unrecogniz ed section and content) ReasonCommentsOsteoarthritisReasonCommentsMedication QuestionReasonOnset Date CommentsRefill Tnhjdwk32/11/2024ReasonCommentsNew Patient EvaluationStates a left hip and leg pain for 2 months. Pain 09/22Hip PainLeg PainReasonComments Preparations For ProceduresPre injection instructionsReasonCommentsRadio Gen RMP SpecialtyDiagnoses / ProceduresReferred By ContactReferred To ContactXR IMAGING Diagnoses Other spondylosis with radiculopathy, lumbar region Procedures XR LUMBAR MOTION 4V AP/LAT/ FLEX/EXT RADEX SPINE LUMBOSACRAL MINIMUM 4 VIEWS Brisa Lnyn, MOTOR AND CONTROLS TESTER.REFINERY OPERATOR VISBREAKING [address] [place] [address] Xr Imaging [place] [address] Referral IDStatusReasonStart DateExpiration DateVisits RequestedVisits [id number] Auto-Generated Referral /[id number]MgfjmnqvyInljlfxno / Procedures Referred By ContactReferred To ContactSMaria [facility] / SPINE Diagnoses Radiculopathy, lumbar region Spondylolisthesis, lumbar region Injection Type: Lumbar Spine - Transforaminal epidural steroid injection with fluoro guidance Level: S1 Laterality: Left Blood thinners/antiplatelets: No CPT 68852 Procedures NJX AA&/STRD TFRML EPI LUMBAR/SACRAL 1 [place] [address] [place] [id number] [place] [address] Referral IDStatusReasonStart DateExpiration DateVisits RequestedVisits [id number]/22/202412/[id number] RequestReason CommentsFollow UpInjectionsHad injection on 11/25/23. States 0 painReasonComments Follow-up1 yrReasonCommentsPainReasonCommentsOrder for X-ray Before Appt Fri ReasonCommentsConsultCarpal TunnelSpecialtyDiagnoses / ProceduresReferred By ContactReferred To ContactOrthopedics Diagnoses Carpal tunnel syndrome, unspecified laterality Procedures CONSULT PANEL TO ORTHOPAEDICS OFFICE/OUTPATIENT [facility] [address] [place] [address] [place] [id number] Referral IDStatusReasonStart DateExpiration DateVisits RequestedVisits [id number] PCP Requested Referral [id number] OpReasonCommentsFollow-up1yr Follow up for HypertensionSpecialtyDiagnoses / ProceduresReferred By ContactReferred To ContactCardiology Diagnoses Essential hypertension Procedures Follow Up In Cardiology Deb Zamora MD [address] [facility] [address], [facility] [address] [place] [address] Phone: tel: fax: Deb Zamora MD [address] [facility] [address], [facility] [address] [place] [address] Phone: tel: fax: Referral IDStatusReasonStart DateExpiration DateVisits RequestedVisits [id number]/[id number] colonoscopy Would like to discuss doing cologuard insteadSpecialtyDiagnoses / Procedures Referred By ContactReferred To ContactGeneral Surgery Diagnoses Encounter for screening for malignant neoplasm of colon Procedures [facility] Mayco Velasquez MD [address] [place] [address] [place] [address] Phone: tel: fax: Carlita Patino DO [address] [facility] [address] [place] [address] Phone: tel: fax: Referral IDStatusReasonStart DateExpiration DateVisits RequestedVisits [id number]/10/20253/9/202611 Care Team (unrecognized sect ion and content) Team Status: Active Member Role Status Dates Mayco Velasquez DO Primary Care Provider Active Team Status: Inactive Member Role Status Padmini Velasquez DO Primary Care Provide r, Attending Provider Active Start: March 01, 2024 End: March 01, 2024 Team Status: Inactive Member Role Status Padmini Velasquez DO Primary Care Provide r, Attending Provider Active Start: April 07, 2024 End: April 07, 2024 Team Status: Inactive Member Role Status Padmini Velasquez DO Primary Care Provide r, Attending Provider Active Start: May 12, 2024 End: May 12, 2024 Team Status: Active Member Role Status Padmini Velasquez DO Primary Care Provider Active S tart: January 18, 2024 Eryn Walden ProviderActiveStart: January 18, 2024 Team Status: Inactive Member Role Status Padmini Velasquez DO Primary Care Provider, Attending Pro vider Active Team Status: Inactive Member Role Status Padmini Velasquez DO Primary Care Provider Active Referral SelfAttending ProviderActive Team Status: Inactive Member Role Status Padmini Velasquez DO Primary Care Provide r, Attending Provider Active Start: May 13, 2023 End: May 13, 2023 Team Status: Inactive Member Role Status Padmini Velasquez DO Primary Care Provide r, Attending Provider Active Start: May 15, 2023 End: May 15, 2023 Team Status: Inactive Member Role Status Padmini Velasquez DO Primary Care Provide r, Attending Provider Active Start: May 25, 2023 End: May 25, 2023 Team Status: Active Member Role Status Padmini Velasquez DO Primary Care Provider Active S tart: May 27, 2023 RAYNE RodriguezAAtcorbin ProviderActiveStart: May 27, 2023 Team Status: Inactive Member Role Status Padmini Velasquez DO Primary Care Provide r, Attending Provider Active Start: June 01, 2023 End: June 01, 2023Team MemberRelationshipSpecialtyStart DateEnd Date Mayco Velasquez DO [address] [place] [address] PCP - [facility] Medicine03/27/15 Team Status: Inactive Member Role Status Padmini Velasquez DO Primary Care Provide r, Attending Provider Active Start: June 12, 2023 End: June 12, 2023 Team Status: Inactive Member Role Status Padmini Velasquez DO Primary Care Provide r, Attending Provider Active Start: August 20, 2023 End: August 20, 2023 Team Status: Inactive Member Role Status Padmini Velasquez DO Primary Care Provider Active S tart: October 05, 2023 End: October 05, 2023Deb Zamora MDAttending ProviderActiveStart: October 05, 2023 End: October 05, 2023 Team Status: Inactive Member Role Status Padmini Velasquez DO Primary Care Provider Active S tart: October 19, 2023 End: October 18eferral SelfAttending ProviderActiveStart: October 19, 2023 End: October 19, 2023 Team Status: Inactive Member Role Status Padmini Velasquez DO Primary Care Provide r, Attending Provider Active Start: October 20, 2023 End: October 20, 2023Team MemberRelationshipSpecialtyStart DateEnd Date Mayco Velasquez, DO [address] [place] [address] PCP - [facility]03/27/15Team MemberRelationshipSpecialtyStart DateEnd Date Mayco Velasquez, DO [address] [place] [address] PCP - [facility]03/27/15Team MemberRelationshipSpecialtyStart DateEnd Date Mayco Velasquez, DO [address] [place] [address] PCP - [facility]03/27/15Team MemberRelationshipSpecialtyStart DateEnd Date Mayco Velasquez, DO [address] [place] [address] PCP - [facility]03/27/15 Team Status: Inactive Member Role Status Dates Mayco Velasquez DO Primary Care Provide r, Attending Provider Active Start: November 23, 2023 End: November 23, 2023Team MemberRelationshipSpecialtyStart DateEnd Date Mayco Velasquez, DO [address] [place] [address] PCP - [facility] Medicine03/27/15Team MemberRelationshipSpecialtyStart DateEnd Date Mayco Velasquez, DO [address] [place] [address] PCP - [facility]03/27/15 Team Status: Inactive Member Role Status Dates Mayco Velasquez DO Primary Care Provide r, Attending Provider Active Start: December 03, 2023 End: December 03, 2023Team MemberRelationshipSpecialtyStart DateEnd Date Mayco Velasquez, DO [address] [place] [address] PCP - [facility]03/27/15Team MemberRelationshipSpecialtyStart DateEnd Date Mayco Velasquez, DO [address] [place] [address] PCP - [facility]03/27/15Team MemberRelationshipSpecialtyStart DateEnd Date Mayco Velasquez, DO [address] [place] [address] PCP - [facility]03/27/15Team MemberRelationshipSpecialtyStart DateEnd Date Mayco Velasquez, DO [address] [place] [address] PCP - [facility]03/27/15Team MemberRelationshipSpecialtyStart DateEnd Date Mayco Velasquez, DO [address] [place] [address] [facility]/27[facility]15Team MemberRelationshipSpecialtyStart DateEnd Date Mayco Velasquez, DO [address] [place] [address] PCP - [facility]03/27/15Team MemberRelationshipSpecialtyStart DateEnd Date Mayco Velasquez, DO [address] [place] [address] PCP - General05/23/20Team MemberRelationshipSpecialtyStart DateEnd Date Mayco Velasquez, [address] [place] [address] PCP - [facility]03/27/15Team MemberRelationshipSpecialtyStart DateEnd Date Mayco Velasquez MD [address] [place], [place] [phone] PCP - [facility]01/28/23 Bharath Bajwa, [address] [place] [address] Reawmitmijuygk80/1/23 Anushka Helms DO [address] [phone] Referring PhysicianNeurolog03/16/22Team MemberRelationshipSpecialtyStart DateEnd Date Mayco Velasquez MD [address] [place], [place] [id number] PCP - [facility] Wnzmxpsf49/15/23 Bharath Bajwa, [address] [place] [address] Icszsbrlyfcmzl58/1/23 Anushka Helms DO [address] [phone] Referring PhysicianNeurolog03/16/22Team MemberRelationshipSpecialtyStart DateEnd Date Mayco Velasquez MD [address] [place], [place] [phone] PCP - GeneralFamily Mqtraweu27/15/23 Bharath Bajwa, DO [address] [facility] [place], [place] [address] Mvezwjtmsugnls47/1/23 Anushka Helms DO [address] [place] [address] [place] [address] Referring PhysicianNeurolog03/16/22Team MemberRelationshipSpecialtyStart DateEnd Date Mayco Velasquez, [address] [place] [address] PCP - GeneralFamily Medicine03/27/15Team MemberRelationshipSpecialtyStart DateEnd Date Mayco Velasquez, [address] [place] [address] PCP - GeneralFamily Medicine03/27/15Team MemberRelationshipSpecialtyStart DateEnd Date Mayco Velasquez, [address] [place] [address] PCP - GeneralFamily Medicine03/27/15 Team Status: Inactive Member Role Status Dates Mayco Velasquez DO Primary Care Provide r, Attending Provider Active Start: June 01, 2024 End: June 01, 2024Team MemberRelationshipSpecialtyStart DateEnd Date Mayco Velasquez, [address] [place] [address] PCP [facility]03/27/15 Team Status: Inactive Member Role Status Padmini Velasquez DO Primary Care Provider Active S tart: July 17, 2024 End: July 18, 2024Maalexandrea Max DOEmergency ProviderActiveStart: July 17, 2024 End: July 18, 2024Team MemberRelationshipSpecialtyStart DateEnd Date Mayco Velasquez DO [facility]05/23/20 Team Status: Inactive Member Role Status Padmini Velasquez DO Primary Care Provider Active S tart: August 31, 2024 End: August 31, 2024Datramaine Velasquez DOAttending ProviderActiveStart: August 31, 2024 End: August 31, 2024 Team Status: Inactive Member Role Status Padmini Velasquez DO Primary Care Provider Active S tart: October 19, 2024 End: October 19, 2024Referral SelfAttending ProviderActiveStart: October 19, 2024 End: October 19, 2024 Team Status: Inactive Member Role Status Padmini Velasquez DO Primary Care Provider Active S tart: November 21, 2024 End: November 21, 2024Datramaine Velasquez DOAttending ProviderActiveStart: November 21, 2024 End: November 21, 2024 Team Status: Active Member Role Status Padmini Velasquez DO Primary Care Provider Active S tart: November 23, 2024 Mayco Velasquez DOAttending ProviderActiveStart: November 23, 2024 Team Status: Inactive Member Role Status Padmini Velasquez DO Primary Care Provider Active S tart: November 23, 2024 End: November 23, 2024Datramaine Velasquez DOAttending ProviderActiveStart: November 23, 2024 End: November 23, 2024 Team Status: Inactive Member Role Status Padmini Velasquez DO Primary Care Provider Active S tart: December 02, 2024 End: December 02, 2024Datramaine Velasquez DOAttending ProviderActiveStart: December 02, 2024 End: December 02, 2024 Team Status: Inactive Member Role Status Dates Mayco Velasquez DO Primary Care Provider Active S tart: December 05, 2024 End: December 05, 2024Datramaine Velasquez DOAttending ProviderActiveStart: December 05, 2024 End: December 05, 2024Team MemberRelationshipSpecialtyStart DateEnd Date Mayco Velasquez MD [address] [place] [address] [place] [address] PCP - GeneralFamily Nexxkeph36/15/23 Bharath Bajwa DO [address] [place] [address] Yxyqicfbqwljbp39/1/23 Anushka Helms DO [address] [phone] Referring PhysicianNeurolog03/16/22 Team Status: Active Member Role/Relationship Status Dates Mayco Velasquez DO Primary Care Provider Active Team Status: Inactive Member Role/Relationship Status Dates Mayco Velasquez DO Primary Care Provider Active S tart: October 19, 2024 End: October 19, 2024Referral SelfAttending ProviderActiveStart: October 19, 2024 End: October 19, 2024 Team Status: Inactive Member Role/Relationship Status Dates Mayco Velasquez DO Primary Care Provider Active S tart: November 21, 2024 End: November 21, 2024Datramaine Velasquez DOAttending ProviderActiveStart: November 21, 2024 End: November 21, 2024 Team Status: Active Member Role/Relationship Status Dates Mayco Velasquez DO Primary Care Provider Active S tart: November 23, 2024 Mayco Velasquez DOAttraul ProviderActiveStart: November 23, 2024 Team Status: Inactive Member Role/Relationship Status Dates Mayco Velasquez DO Primary Care Provider Active S tart: November 23, 2024 End: November 23, 2024Datramaine Velasquez DOAttending ProviderActiveStart: November 23, 2024 End: November 23, 2024 Team Status: Inactive Member Role/Relationship Status Dates Mayco Velasquez DO Primary Care Provider Active S tart: December 02, 2024 End: December 02, 2024Datramaine Velasquez DOAttraul ProviderActiveStart: December 02, 2024 End: December 02, 2024 Team Status: Inactive Member Role/Relationship Status Dates Mayco Velasquez DO Primary Care Provider Active S tart: December 05, 2024 End: December 05, 2024DaviRobert Johnson ProviderActiveStart: December 05, 2024 End: December 05, 2024 Team Status: Inactive Member Role/Relationship Status Dates Mayco Velasquez DO Primary Care Provider Active S tart: January 09, 2025 End: January 09, 2025DaRobert Arias ProviderActiveStart: January 09, 2025 End: January 09, 2025 Goals (unrecognized section and content) Goals may be documented in a n alternate section Source Comments (unrecognize d section and content) In the event this informatio n is protected by the Federal Confidentiality of Alcohol and Drug Abuse Patient Records regulations: The Federal rules restrict any use of the information to criminally investigate or prosecute any alcohol or drug abuse patient.[facility] HospitalIn the event this information is protected by the Federal Confidentiality of Alcohol and Drug Abuse Patient Records regulations: The Federal rules restrict any use of the information to criminally investigate or prosecute any alcohol or drug abuse patient.[facility] HospitalIn the event this information is protected by the Federal Confidentiality of Alcohol and Drug Abuse Patient Records regulations: The Federal rules restrict any use of the information to criminally investigate or prosecute any alcohol or drug abuse patient.[facility] HospitalIn the event this information is protected by the Federal Confidentiality of Alcohol and Drug Abuse Patient Records regulations: The Federal rules restrict any use of the information to criminally investigate or prosecute any alcohol or drug abuse patient.[facility] HospitalIn the event this information is protected by the Federal Confidentiality of Alcohol and Drug Abuse Patient Records regulations: The Federal rules restrict any use of the information to criminally investigate or prosecute any alcohol or drug abuse patient.[facility] HospitalIn the event this information is protected by the Federal Confidentiality of Alcohol and Drug Abuse Patient Records regulations: The Federal rules restrict any use of the information to criminally investigate or prosecute any alcohol or drug abuse patient.[facility] HospitalIn the event this information is protected by the Federal Confidentiality of Alcohol and Drug Abuse Patient Records regulations: The Federal rules restrict any use of the information to criminally investigate or prosecute any alcohol or drug abuse patient.[facility] HospitalIn the event this information is protected by the Federal Confidentiality of Alcohol and Drug Abuse Patient Records regulations: The Federal rules restrict any use of the information to criminally investigate or prosecute any alcohol or drug abuse patient.[facility] HospitalIn the event this information is protected by the Federal Confidentiality of Alcohol and Drug Abuse Patient Records regulations: The Federal rules restrict any use of the information to criminally investigate or prosecute any alcohol or drug abuse patient.[facility] HospitalIn the event this information is protected by the Federal Confidentiality of Alcohol and Drug Abuse Patient Records regulations: The Federal rules restrict any use of the information to criminally investigate or prosecute any alcohol or drug abuse patient.[facility] HospitalIn the event this information is protected by the Federal Confidentiality of Alcohol and Drug Abuse Patient Records regulations: The Federal rules restrict any use of the information to criminally investigate or prosecute any alcohol or drug abuse patient.[facility] HospitalIn the event this information is protected by the Federal Confidentiality of Alcohol and Drug Abuse Patient Records regulations: The Federal rules restrict any use of the information to criminally investigate or prosecute any alcohol or drug abuse patient.[facility] HospitalIn the event this information is protected by the Federal Confidentiality of Alcohol and Drug Abuse Patient Records regulations: The Federal rules restrict any use of the information to criminally investigate or prosecute any alcohol or drug abuse patient.[facility] HospitalIn the event this information is protected by the Federal Confidentiality of Alcohol and Drug Abuse Patient Records regulations: The Federal rules restrict any use of the information to criminally investigate or prosecute any alcohol or drug abuse patient.[facility] HospitalIn the event this information is protected by the Federal Confidentiality of Alcohol and Drug Abuse Patient Records regulations: The Federal rules restrict any use of the information to criminally investigate or prosecute any alcohol or drug abuse patient.[facility] HospitalIn the event this information is protected by the Federal Confidentiality of Alcohol and Drug Abuse Patient Records regulations: The Federal rules restrict any use of the information to criminally investigate or prosecute any alcohol or drug abuse patient.[facility] HospitalIn the event this information is protected by the Federal Confidentiality of Alcohol and Drug Abuse Patient Records regulations: The Federal rules restrict any use of the information to criminally investigate or prosecute any alcohol or drug abuse patient.[facility] HospitalIn the event this information is protected by the Federal Confidentiality of Alcohol and Drug Abuse Patient Records regulations: The Federal rules restrict any use of the information to criminally investigate or prosecute any alcohol or drug abuse patient.[facility] HospitalIn the event this information is protected by the Federal Confidentiality of Alcohol and Drug Abuse Patient Records regulations: The Federal rules restrict any use of the information to criminally investigate or prosecute any alcohol or drug abuse patient.[facility] HospitalIn the event this information is protected by the Federal Confidentiality of Alcohol and Drug Abuse Patient Records regulations: The Federal rules restrict any use of the information to criminally investigate or prosecute any alcohol or drug abuse patient.[facility] HospitalIn the event this information is protected by the Federal Confidentiality of Alcohol and Drug Abuse Patient Records regulations: The Federal rules restrict any use of the information to criminally investigate or prosecute any alcohol or drug abuse patient.[facility] HospitalIn the event this information is protected by the Federal Confidentiality of Alcohol and Drug Abuse Patient Records regulations: The Federal rules restrict any use of the information to criminally investigate or prosecute any alcohol or drug abuse patient.[facility] FOR RECORDS PERTAINING TO PATIENTS WHO ARE OR HAVE BEEN ENROLLED IN A CHEMICAL DEPENDENCY/SUBSTANCEABUSE PROGRAM, SOME INFORMATION MAY BE OMITTED. This clinical summary was aggregated from multiple sources. Caution should be exercised in using it in the provision of clinical care. This summary normalizes information from multiple sources, and as a consequence, information in this document may materially change the coding, format and clinical context of patient data. In addition, data may be omitted in some cases. CLINICAL DECISIONS SHOULD BE BASED ON THE PRIMARY CLINICAL RECORDS. [facility]. provides no warranty or guarantee of the accuracy or completeness of information in this document.
--- OUTSIDE RECORDS SUMMARY | 2025-01-22 06:54 | XMS_ITS | Patient Health Record ---
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 Florentino Mabry Primary Care Provider Alyssa Norman Unavailable [phone] Allergies No Known Allergies Reason For Referral No Information Medications Medication SIG (Take, Route, Frequency, Duration) Notes Start Date End Date Status Vitamin E ActiveAmoxicillin-Pot Clavulanate 875-125 MG1 tablet Orally every 12 hrs; Duration: 7 days5ActiveVitamin B ComplexActiveVitamin CActiveVitamin K ActiveMetoprolol TartrateActiveSimvastatinActiveCalciumActiveclonazePAM 0.5 MG TAKE 1 TABLET IN THE MORNING AND 1 TO 2 TABLETS DAILY AT BEDTIME DIRECTED FOR 30 DAYS OralActiveOmeprazole 40 MGOralActiveMeloxicam 15 MGTAKE 1 TABLET BY MOUTH ONCE DAILY OralActive Social History Tobacco Use: Social History Observation Description Date Details (start date - stop date) Never Smoker NA - NA Tobacco Control (Standard) Question Answer Notes Tobacco use: Nonsmoker Problems Problem Type SNOMED Code ICD Code Onset Dates Problem Status W/U Status Risk Notes Problem Hypertension (02115795) Hypertension (I10 ) ActiveconfirmedProblemSupraventricular tachycardia (3941371)SVT (supraventricular tachycardia) (I47.10)ActiveconfirmedProblemHyperlipidemia (72969563)Hyperlipidemia (E78.5)ActiveconfirmedProblemGastroesophageal reflux disease (983786933)GERD (gastroesophageal reflux disease) (K21.9)Activeconfirmed ProblemRestless legs (64446478)Restless leg (G25.81)ActiveconfirmedProblem Arthritis (5859700)Arthritis (M19.90)ActiveconfirmedProblemObese class I (finding) (296169827057079)Obesity (BMI 30.0-34.9) (E66.9)Activeconfirmed Vital Signs Temperature 97.1 degrees Fahrenheit 01/14/2025 Respiratory Rate16 /min01/14/20258260Flreodmr1367/01/2025lood pressure zzbwffjda12 mm Hg01/14/20250771Wwykry13 in01/14/2025lood pressure wubmiomw611 mm Hg01/14/2025 Mcxfai675 lbs103/16/2024BMI28.34 kg/m201/14/2025 Encounters Encounter Location Date Provider Diagnosis [address] [place] [address] 01/14/2025 Alyssa Eli Acute non-recurrent pansinusitis J01.40 [...] declined (ICD-10 - Z28.21) Plan Of Treatment No Information Insurance Providers Payer Name Payer Address Payer Phone Subscriber Number Group Number Insured Name Patient Relationship to Insured Coverage Start Date Coverage End Date [employer] MED[employer] HMO [address] [place] [phone] [id number] [facility] P[employer] - patient is the insured 4 Medical (General) History Medical History History ICD Code Hypertension I10 SVT (supraventricular tachycardia) I47.1 0 Hyperlipidemia E78.5 GERD (gastroesophageal reflux disease) K 21.9 Restless leg G25.81 Arthritis M19.90 Surgical History Surgery Date(Month/Year) shoulder knee replacement - righthysterectomycholecystectomyHospitalization History Reason Date(Month/Year) surgeries
--- OUTSIDE RECORDS SUMMARY | 2025-01-22 06:54 | XMS_ITS | Clinical Summary ---
Author Organization [facility] Address [address] [place] [address] Care Team Providers Care Porcelain Finish Sprayer Name Role Phone Florentino Mabry MD Primary Care Provider [phone] Bharath Bajwa Lima DO Unavailable [phone] Anushka Helms DO Unavailable [phone] Allergies Active AllergyReactionsCriticalityNoted BciwUrwvsczkTdfdkcepp57/15/2023 Other Reaction(s): extreme drowsiness Medications MedicationSigDispense QuantityRefillsLast FilledStart DateEnd DateStatus Cymbalta [address] capsule Take 30 mg by mouth in the morning and 30 mg before bedtime.Active omeprazole (PriLOSEC) [address] capsule Take 40 mg by mouth in the morning. Take before meals.12/13/2022ctive metoprolol tartrate (Lopressor) 50 MG tablet Take 50 mg by mouth every 12 (twelve) hoursActive hydroxychloroquine (Plaquenil) 200 MG tablet Take 200 mg by mouth DailyActive amLODIPine (Norvasc) 5 MG tablet Take 5 mg by mouth 1 (one) time each day at the same timeActive simvastatin (Zocor) 20 MG tablet Take 20 mg by mouth at ulhdhyb3312/13/2022ctive clonazePAM (KlonoPIN) 0.5 MG tablet Indications:Restless Leg SyndromeTake 0.5 mg by mouth in the morning and 0.5 mg before bedtime. 1/2-1 tablet .12/30/2022ctive Ascorbic Acid (VITAMIN C PO) Active Coenzyme Q10 (COQ-10 PO) Active meloxicam (Mobic) 15 MG tablet Take 15 mg by mouth Daily12/29/2022ctive indomethacin (Indocin) 25 MG capsule Take 25 mg by mouth in the morning.Active magnesium oxide (Mag-Ox) 400 MG tablet Take 400 mg by mouth in the morning.Active aspirin 81 MG EC tablet Take 81 mg by mouth DailyActive lidocaine (Lidoderm) 5 % patch Indications:Chronic left-sided low back pain with left-sided sciaticaApply 1 patch over 12 hours topically Daily Apply for 12 hours daily 30 patch ctive tiZANidine (Zanaflex) 4 MG tablet Indications:Chronic left-sided low back pain with left-sided sciaticaTake 1/2-1 by mouth twice a day 60 tablet ctive HYDROcodone-acetaminophen ([employer]) 5-325 MG tablet Take 1 tablet by mouth every 8 (eight) hours if mbmcvy9203/02/2024ctive predniSONE (Deltasone) 20 MG tablet 03/02/2024ctive valsartan (Diovan) 160 MG tablet Take 160 mg by mouth Daily03/24/2024tive gabapentin (Neurontin) 100 MG capsule Indications:Paresthesia of skinTAKE 1 CAPSULE EVERY MORNING AND 2 CAPSULES AT BEDTIME, TAKE WITH THE 400MG TABLET 90 capsule 5Active amitriptyline (Elavil) 25 MG tablet Indications:Migraine without aura and without status migrainosus, not intractableTAKE 1 TABLET AT BEDTIME 90 tablet 5Active gabapentin (Neurontin) 400 MG capsule Indications:Paresthesia of skinTAKE 1 CAPSULE IN THE MORNING AND BEFORE BEDTIME 60 capsule 5Active Active Problems ProblemNoted DateDiagnosed DateSpecial screening for malignant neoplasms, colon 5Acute right-sided low back pain with right-sided lxazqcbh63/20/2024 Paresthesia of skin07/07/2023hronic tension-type headache, not intractable 07/07/2023nesthesia of skin07/07/2023ain in left hand07/07/2023ain in right hand07/07/20236135Pomalgjlvv11/23/2024hronic GERD02/10/20230954Cgxmldlcor16/28/2023 Wttbcyhtwrrm27/28/8862Ghbdzptdf10/28/2023Multiple gastric cvgtey0402/10/2023Other esktdomezldsng40/28/2023aroxysmal SVT (supraventricular tachycardia)02/10/2023 Restless legs02/10/20235924Jibzzjqnm71/28/0747Viaagbrzwqfgwl93/28/2023 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 poyjivkk10/14/2023Osteoarthritis of knee 01/27/2023resence of right artificial knee joint01/27/2023Sensorineural hearing loss, rwleuwuhp21/14/2023Sudden hearing loss01/27/2023ilateral tinnitus 01/27/20231376Ioxtprrx02/14/2023 Encounters DateTypeDepartmentCare OpewCjfevqyvfgl67/06/2025Telephone [facility] [address] [place] [address] [address] [place] [phone] Francisca Fuller LPN cologuard xywpuxs3201/02/2025 2:30 PM EDTOffice Visit [facility] [address] [facility] [address] [place] [address] Doni Melgar, Special screening for malignant neoplasms, colon (Primary Dx)01/02/2025Travel 12/19/2024Travelfrom Last 3 Months Family History Medical HistoryRelationNameCommentsCancerDaughterHeart diseaseFather OsteoarthritisFatherCancerMaternal GrandfatherCancerMotherCancerOtherspouse DiabetesOtherspouseHypertensionOtherspouseMental illnessPaternal Grandfather CancerPaternal GrandmotherBreast cancerNeg HxColon cancerNeg HxOvarian cancerNeg HxPancreatic cancerNeg AgFlrtqhncViioQmzbroRixehhvwNazcqfr2FzpdobumLzigtPlilvx DeceasedMaternal GrandfatherDeceasedMotherDeceasedOtherspouseAlivePaternal GrandfatherDeceasedPaternal GrandmotherDeceasedSisternoneSonAlive Social History Tobacco UseTypesPacks/DayYears UsedDateSmoking Tobacco: NeverSmokeless Tobacco: Never Tobacco Cessation:Counseling Given: Not Answered Alcohol UseStandard Drinks/WeekCommentsYes6 (1 standard drink = 0.6 oz pure alcohol)caffeine intake : noneCommentsUnknownSex and Gender Information ValueDate RecordedSex Assigned at VbyukZkvcma25/08/2023 9:47 AM ESTLegal Sex Ztuppp3205/28/2022 6:53 PM EDTGender JwtyfymmVmotan71/08/2023 9:47 AM ESTSexual NijxzvuwrrvFxjrjgop15/08/2023 9:47 AM EST Last Filed Vital Signs Vital SignReadingTime TakenCommentsBlood Dflrwmli524/8408 9:56 AM EDT Oalqs636007/07/2023 12:41 PM EDTTemperature--Respiratory Rate--Oxygen Saturation 96%07/07/2023 12:41 PM EDTInhaled Oxygen Concentration--Hekbvu57.6 kg (149 lb) 01/02/2025 2:47 PM UBVDulrme187.9 cm (5' 1 )01/02/2025 2:47 PM EDTBody Mass Index28.151 2:47 PM EDT Plan of Treatment Not on file Procedures Procedure NamePriorityDate/TimeAssociated DiagnosisCommentsLAB COLOGUARD?? COLON CANCER LZKLWWMtbmunu32/30/2025 3:55 PM EDT Special screening for malignant neoplasms, colon from Last 3 Months Results * Cologuard?? colon cancer screening (01/12/2025 3:55 PM EDT)ComponentValueRef RangeTest MethodAnalysis TimePerformed AtPathologist SignatureNONINV COLON CA DNA+OCC BLD SCRN STL-WYOXzydsyqfLztoibzi24/05/2025 8:13 AM [employer] (CLIA #:[id number])Comment: The Cologuard (TM) test was performed on this specimen. NEGATIVE TEST RESULT. A negative Cologuard result indicates a low likelihood that a colorectal cancer (CRC) or advanced adenoma (adenomatous polyps with more advanced pre-malignant features) is present. The chance that a person with a negative Cologuard test has a colorectal cancer is less than 1 in 1500 (negative predictive value >99.9%) or has an advanced adenoma is less than 5.3% (negative predictive value 94.7%). These data are based on a prospective cross-sectional study of 10,000 individuals at average risk for colorectal cancer who were screened with both Cologuard and colonoscopy. (Jesus Redmond al, N Engl J Med 2014;370(14):0234-6636) The normal value (reference range) for this assay is negative. COLOGUARD RE-SCREENING RECOMMENDATION: Periodic colorectal cancer screening is an important part ofpreventive healthcare for asymptomatic individuals at average risk for colorectal cancer. Followinga negative Cologuard result, the [place] [employer] Society and U.S. Multi-Society Task Force screening guidelines recommend a Cologuard re-screening interval of 3 years. References: [place] [employer] Guideline for Colorectal Cancer Screening: https://www.cancer.or g/cancer/gunbk-kzcfwt-xonqlq/mjrajuqjv-repqlejet-iazmelw/acs-recommendations.htm l.; Roque BURNETT, Kristina CORDOVA, Baldev JasonK, Colorectal Cancer Screening: Recommendations for Physicians and Patients from the U.S. Multi-Society Task Force on Colorectal Cancer Screening , Am J Gastroenterology 2017; 112:9113-3364. TEST DESCRIPTION: Composite algorithmic analysis of stool DNA-biomarkers with hemoglobin immunoassay. ?? Quantitative values of individual biomarkers are not reportable and are not associated with individual biomarker result reference ranges. Cologuard is intended for colorectal cancer screening ofadults of either sex, 45 years or older, who are at average-risk for colorectal cancer (CRC). Cologuard has been approved for use by the U.S. FDA. The performance of Cologuard was established in a cross sectional study of average-risk adults aged 50-84. Cologuard performance in patients ages 45 to 49 years was estimated by sub-group analysis of near-age groups. Colonoscopies performed for a positive result may find as the most clinically significant lesion: colorectal cancer [4.0%], advanced adenoma (including sessile serrated polyps greater than or equal to 1cm diameter) [20%] or non- advanced adenoma [31%]; or no colorectal neoplasia [45%]. These estimates are derived from a prospective cross-sectional screening study of 10,000 individuals at average risk for colorectal cancer who were screened with both Cologuard and colonoscopy. (Jesus Sandoval, N Engl J Med 2014;370(14):5105-3034.) Cologuard may produce a false negative or false positive result (no colorectal cancer or precancerous polyp present at colonoscopy follow up). A negative Cologuard test result does not guarantee the absence of CRC or advanced adenoma (pre-cancer). The current Cologuard screening interval is every 3 years. ([place] [employer] Society and U.S. Multi-Society Task Force). Cologuard performance data in a 10,000 patient pivotal study using colonoscopy as the reference method can be accessed at the following location: www.[employer]/results. Additional description of the Cologuard test process, warnings and precautions can be found at www.cologuard.com. Specimen (Source)Anatomical Location / LateralityCollection Method / Volume Collection TimeReceived TimeStool specimen (specimen)01/12/2025 3:55 PM EDT 01/14/2025 2:20 PM EDT Narrative Authorizing ProviderResult TypeResult StatusFredric Shantel Melgar [facility] ORDERABLESFinal ResultPerforming OrganizationAddressCity/State/ZIP CodePhone Number .[employer] (CLIA #:[id number]) [address] [address], [place] [phone] [employer] (CLIA #:[id number]) [address] [place] [phone] from Last 3 Months Insurance Care Teams Team MemberRelationshipSpecialtyStart DateEnd Date Florentino Mabry MD [address] [place] [address] [place] [address] PCP - GeneralFamily Stdwbhcm37/15/23 Bharath Bajwa DO [address] [place] [address] Xlxzeelodtebyt10/1/23 Anushka Helms DO [address] [id number] Referring PhysicianNeurolog03/16/22
--- OUTSIDE RECORDS SUMMARY | 2025-01-22 06:54 | XMS_ITS | Continuity of Care Document ---
Author Organization [facility] Address [address] [place] [address] Phone [phone] Care Team Providers Care Furnace Helper Name Role Phone ElaineFlorentino lopez Eleanor ANTHONY Care Team Information Receive r [phone] Results Test Acquired Date Facility Test Result H/L Range N ote .Renal Panel 08/02/2018 [facility] [phone].Calcium9.7.Carbon Qqocskx48.Vbwxlvbx73.Creatinine-LC0.7.Tstjmq724 .BUN11.GFR-LC>91Qlad64.Potassium4.0 Assessments Date Code Description Provider 07/12/2018 E87.1 Hypo-osmolality and hyponatr mikey Barkley MD 07/12/2018 E87.6 Hypokalemia Jerry Romero 07/12/2018 I10 Essential (primary) jenn Barkley MD 07/12/2018 K81.9 Cholecystitis, unspecified Quintin Barkley MD 07/11/2018 E87.1 Hypo-osmolality and hyponatr mikey Barkley MD 07/11/2018 E87.6 HypokaleJerry Moeller 07/11/2018 I10 Essential (primary) jenn Barkley MD 07/11/2018 K81.9 Cholecystitis, unspecified Quintin Barkley MD 07/09/2018 E87.1 Hypo-osmolality and hyponatr mikey Barkley MD 07/09/2018 E87.6 HypokaleJerry Moeller 07/09/2018 I10 Essential (primary) jenn Barkley MD 07/09/2018 K81.9 Cholecystitis, unspecified S unil Maycolkina, MD 07/08/2018 E87.1 Hypo-osmolality and hyponatr emdmitri Barkley MD 07/08/2018 E87.6 Hypokalemia Jerry Romero 07/08/2018 I10 Essential (primary) jenn Barkley MD 07/08/2018 K81.9 Cholecystitis, unspecified Quintin Barkley MD 07/07/2018 E87.1 Hypo-osmolality and hyponatr emdmitri Barkley MD 07/07/2018 E87.6 Hypokalemia Jerry Romero 07/07/2018 I10 Essential (primary) jenn Barkley MD 07/07/2018 K81.9 Cholecystitis, unspecified Quintin Barkley MD
[2025-01-22] MEDS: 0.9 % SODIUM CHLORIDE 1,000 ML 100 ML IV (07:05)
[2025-01-22 07:09] LABS: Lactate/Lactic Acid 1.7 mmol/L (0.4-2.0)
[2025-01-22 07:10] LABS: Alanine Aminotransferase 33 U/L (14-59); Albumin Globulin Ratio 1.5; Albumin Level 4.4 g/dL (3.4-5.0); Alkaline Phosphatase 96 U/L (46-116); Anion Gap 14.1; Aspartate Amino Transferase 27 U/L (15-37); Blood Urea Nitrogen 15.0 mg/dL (7.0-18.0); Calcium 9.5 mg/dL (8.5-10.1); Carbon Dioxide 29.1 mmol/L (21.0-32.0); Chloride 99 mmol/L (98-107); Estimated GFR (African America >60 (>=60 mL/min/1.73m^2); Estimated GFR (Non-African Ame >60 (>=60 mL/min/1.73m^2); Globulin 2.9 g/dL; Glucose 112 mg/dL (74-106); Lipase 39.0 U/L (16.0-77.0); Potassium 4.2 mmol/L (3.5-5.1); Sodium 138 mmol/L (136-145); Total Protein 7.3 g/dL (6.4-8.2)
--- NOTE | 2025-01-22 08:07 | CT_ITS ---
The [address] [address] Patient Name: ALLISON LAMBERT MRN: [id number] date: 1945 Sex: F Assigned Patient Location: ER Current Patient Location: Accession/Order Number: [id number] Exam Date: 01/22/2025 08:23 Report Date: 01/22/2025 09:07 At the request of: BECKIE BENAVIDES DO Procedure: CT abdomen pelvis w con CT abdomen pelvis w con 01/22/2025 8:33 AM SIGNS AND SYMPTOMS: epigastric pain, h/o PUD TECHNIQUE: Multidetector ct axial images of the abdomen and pelvis were obtained with IV contrast. Multiplanar reformats were performed and reviewed to further define anatomy and possible pathology. CT was performed with one or more of the following dose reduction techniques: Automated exposure control, adjustment of the mA and/or kV according to patient size, or use of iterative reconstruction technique. COMPARISON: None. FINDINGS: Lower Chest: There is a hiatal hernia with gastric fundus in the lower mediastinum. ABDOMEN: Liver: The liver is hypoattenuating suggesting hepatic steatosis. Bile Ducts: Normal caliber. Gallbladder: Previously removed. Pancreas: Within normal limits. Spleen: Within normal limits. Adrenals: Within normal limits. Kidneys: Within normal limits. Pelvis: Reproductive Organs: No pelvic masses. Ureters: Within normal limits. Bladder: Within normal limits. Bowel: Normal caliber. There is a normal appendix in the right lower quadrant. Mesenteric Lymph Nodes: No enlarged mesenteric lymph nodes. Peritoneum: No ascites or free air, no fluid collection. Vessels: Atherosclerotic changes are noted in the abdominal branches. Retroperitoneum: Within normal limits. Abdominal Wall: Within normal limits. Bones: Degenerative changes are noted in the thoracolumbar spine with a dextro convex curvature. Degenerative changes are noted in the hips and sacroiliac joints. CT/CT abdomen pelvis w con IMPRESSION: No acute intra-abdominal pathology. No bowel obstruction or obstructive uropathy. There is a hiatal hernia with gastric fundus in the lower mediastinum. The liver is hypoattenuating suggesting hepatic steatosis. Impression dictated by: Luis Antonio Moss M.D. 01/22/2025 9:07 AM Dictation Location: RADIO-PC-17 Electronically authenticated by: [id number] Y Date: 01/22/2025 09:07
[2025-01-22] MEDS: lidocaine HCL 15 ML, MAG HYDROX/ALUMINUM HYD/SIMETH 30 ML, HYOSCYAMINE SULFATE 0.25 MG PO (08:11)
[2025-01-22] MEDS: FAMOTIDINE/PF 20 MG/2 ML VIAL IV (08:11)
[2025-01-22 08:26] LABS: Glucose Urine UA NEGATIVE (NEGATIVE)
[2025-01-22 08:36] LABS: Cast Seen? NONE SEEN #/LPF (NONE SEEN); Crystals Seen? None Seen #/HPF (None Seen)
== END 2025-01-22 09:29 | disposition home or self-care (01) ==
PROVIDERS: Student in an Organized Health Care Education/Training Program; Emergency Provider Internal Medicine; PCP Family Medicine
DX: R10.13 Epigastric pain (principal); R51.9 Headache, unspecified
CPT/HCPCS: 36415; 71045; 74177; 80053; 81001; 83605; 83690; 84484; 85025; 85378; 93005; 96374; 96375; 99285; J2405; J3490; Q9967

== ENCOUNTER 2025-02-01 19:32 | Emergency (ER) | payer OTHER, SELFPAY ==
--- OUTSIDE RECORDS SUMMARY | 2012-02-17 04:09 | XMS_ITS | Continuity of Care Document ---
Author Organization [facility] Address [address] [place] [address] Phone Care Team Providers Care Ep Tech Name Role Phone Greg Zuluaga Unavailable Unavailable Procedures Procedure Date HEP A VACCINE, ADULT IM OFFICE/OUTPATIENT VISIT, EST OFFICE/OUTPATIENT VISIT, EST HEP A VACCINE, ADULT IM Advance Directives Directive Yes / No Effective Date File Name Resuscitation Not Answered N/A N/A Life Support Not Answered N/A N/A Intubation Not Answered N/A N/A Antibiotics Not Answered N/A N/A IV Fluid Support Not Answered N/A N/A Tube Feed Not Answered N/A N/A Other Directive N/A N/A WARNING:The information contained in this section is historical and is provided for information only and does not constitute a legal document or any assurance that the information is still accurate. Please verify the information with the matthews of the legal document before using it for clinical purposes. Encounters Encounter Description Practice Location Reason(s) For Visit Diagnoses Date Provider Providers Copied on Encounter OFFICE/OUTPAT IENT VISIT, EST [facility], [address], [place], [id number], [place] tel:[phone] [facility] Need for prophylactic vaccination and inoculation against viralhepatitis Asuncion Davison. [address], [place], [id number] , [place]. tel:[phone] Family History Family Member Type Diagnosis Age At Onset No Information Immunizations Vaccine Date Status Comments Hep A (adult) administered Note: VIS give n ; Source: New Immunization Record Payers Payer name Insurance type Covered democrat ID Authoriza tion(s) Aetna Medicare Advantage [id number] Social History Type Description Quantity Date Captured Comments Alcohol Use Details Unknown Caffeine Use Details Unknown Tobacco Use Status No Information Smoking Status No Information Sex Female Chief Complaint And Reason For Visit No Information Reason For Referral Reason For Referral No Information History Of Present Illness Encounter Date Complaint History Of Prese nt Illness No Information Functional Status Date Functional Assessmen t No Information Instructions Date Instruction Additional Infor mation No Information Assessments Type Assessment Date No Information Patient Care Teams Name Effective Dates (start - stop) Status Members No Information
--- OUTSIDE RECORDS SUMMARY | 2012-02-17 04:09 | XMS_ITS | Continuity of Care Document ---
Author Organization [facility] Address [address] [place] [address] Phone Care Team Providers Care Yarn Winder Name Role Phone Greg Zuluaga Unavailable Unavailable [...] Copied on Encounter OFFICE/OUTPAT IENT VISIT, EST [facility], [address], [place], [id number], [place] tel:[phone] [facility] Need for prophylactic vaccination and inoculation against viralhepatitis Asuncion Davison. [address], [place], [id number] , [place]. tel:[phone] Family History Family Member Type Diagnosis Age [...]
--- OUTSIDE RECORDS SUMMARY | 2012-02-17 04:09 | XMS_ITS | Continuity of Care Document ---
Author Organization [facility] Address [address] [place] [address] Phone Care Team Providers Care Electric Razor Assembler Name Role Phone Greg Zuluaga Unavailable Unavailable [...] Copied on Encounter OFFICE/OUTPAT IENT VISIT, EST [facility], [address], [place], [id number], [place] tel:[phone] [facility] Need for prophylactic vaccination and inoculation against viralhepatitis Asuncion Davison. [address], [place], [id number] , [place]. tel:[phone] Family History Family Member Type Diagnosis Age At Onset No Information Immunizations Vaccine Date Status Comments Hep A (adult) administered Note: VIS give n ; Source: New Immunization Record Payers Payer name Insurance type Covered alliance party ID Authoriza tion(s) Aetna Medicare Advantage [id number] [...]
--- OUTSIDE RECORDS SUMMARY | 2012-02-17 04:09 | XMS_ITS | Continuity of Care Document ---
Author Organization [facility] Address [address] [place] [address] Phone Care Team Providers Care Electromechanical Technician Name Role Phone Greg Zuluaga Unavailable Unavailable [...] VISIT, EST [facility], [address], [place], [id number], [place] tel:[phone] [facility] Need for prophylactic vaccination and inoculation against viralhepatitis Asuncion Davison. [address], [place], [id number] , [place]. tel:[phone] Family History Family Member Type Diagnosis Age At Onset No Information Immunizations Vaccine Date Status Comments Hep A (adult) administered Note: VIS give n ; Source: New Immunization Record Payers Payer name Insurance type Covered constitution party ID Authoriza tion(s) Aetna Medicare Advantage [...]
--- OUTSIDE RECORDS SUMMARY | 2012-02-17 04:09 | XMS_ITS | Continuity of Care Document ---
Author Organization [facility] Address [address] [place] [address] Phone Care Team Providers Care Casting And Locker Room Servicer Name Role Phone Greg Zuluaga Unavailable Unavailable [...] Copied on Encounter OFFICE/OUTPAT IENT VISIT, EST [facility], [address], [place], [id number], [place] tel:[phone] [facility] Need for prophylactic vaccination and inoculation against viralhepatitis Asuncion Davison. [address], [place], [id number] , [place]. tel:[phone] Family History Family Member Type Diagnosis Age [...]
--- OUTSIDE RECORDS SUMMARY | 2025-01-24 15:45 | XMS_ITS | Encounter Summary ---
Author Organization [facility] Address [address] [place] [address] Care Team Providers Care Ragman Name Role Phone Florentino Mabry MD Primary Care Provider [phone] Bharath Bajwa DO Unavailable [phone] Anushka Helms DO Unavailable [phone] Reason for Referral * Consultation (Routine) - AuthorizedSpecialtyDiagnoses / ProceduresReferred By ContactReferred To ContactGastroenterology Diagnoses Hiatal hernia Esophageal stricture Esophageal dysphagia Procedures [facility] OFFICE/OUTPATIENT [facility] 60 MINUTES Sha Sethi DO [address] [facility] [address] [place] [address] Phone: tel: fax: Amilcar Dalton MD [address] [facility] [address] [place] [address] Phone: tel: fax: Referral IDStatusReasonStart DateExpiration DateVisits RequestedVisits [id number] Specialty Services Required / Reason for Visit * [facility]Comments[facility], hypertension. Been nauseous. Hasn't been able to swallow foods for sometime. After workup CT scan shows large hiatal hernia. Encounter Details DateTypeDepartmentCare Team (Latest Contact Info)Wqopigafwze19/11/2025 3:45 PM ESTOffice Visit [facility] [address] [facility] [address] [place] [phone] Sha Sethi, DO [address] [facility] [address] [place] [address] Hiatal hernia (Primary Dx); Esophageal stricture; Esophageal dysphagia; Other chest pain Social History Tobacco UseTypesPacks/DayYears UsedDateSmoking Tobacco: NeverSmokeless Tobacco: NeverAlcohol UseStandard Drinks/WeekCommentsYes6 (1 standard drink = 0.6 oz pure alcohol)caffeine intake : noneCommentsUnknownSex and Gender Information ValueDate RecordedSex Assigned at JnqyfFatepm33/08/2023 9:47 AM ESTLegal Sex Gmxkch8905/28/2022 6:53 PM EDTGender RfqruedxEvdsec52/08/2023 9:47 AM ESTSexual OwcbrxrvwueBqhzjwvp58/08/2023 9:47 AM ESTdocumented as of this encounter Last Filed Vital Signs Vital SignReadingTime TakenCommentsBlood Pressure--Pulse--Temperature-- Respiratory Rate--Oxygen Saturation--Inhaled Oxygen Concentration--Vlqemw01.6 kg (149 lb)01/24/2025 3:51 PM ROXEzgpez629.9 cm (5' 1 )01/24/2025 3:51 PM ESTBody Mass Index28.15103/26/2024 3:51 PM ESTdocumented in this encounter Progress Notes * Sha Sethi DO - 01/24/2025 3:45 PM EST Images from the original note were not included. Suma Scott 1945 Suma Scott is a 79 y.o. female presents with chief complaint of Hiatal Hernia ([facility] on Thursday with chest pains, hypertension. Been nauseous. Hasn't been able to swallow foods for sometime. After workup CT scan shows large hiatal hernia.) HPI: HPI patient has had eating problems for a long time. She feels like she gets food that is stuck in her esophagus in her lower neck. She is change what she eats and how she eats to accommodate for that. That has been going on for over a year. She did previously have a esophagram that showed a narrowing of her esophagus and she did not have anything done with that, that was in 2022. She had forgotten about that. She has been getting pain in her upper abdomen around the sides and into the back. She thought it was her heart, she went to [facility] and was told that she had a hiatal hernia. Sometimes she gets episode of feeling hot or sweaty and some nausea. She has been eating since that time. She is again careful about how she eats. She has not having any passing-out episodes. She has not having any fevers chills or sweats. She is having regular bowel movements. SUBJECTIVE: MEDICATIONS: ALLERGIES Current Outpatient Medications Medication Instructions amitriptyline (Elavil) 25 MG tablet TAKE 1 TABLET AT BEDTIME amLODIPine (NORVASC) 5 mg, Every 24 hours Ascorbic Acid (VITAMIN C PO) aspirin 81 mg, Daily clonazePAM (KLONOPIN) 0.5 mg, 2 times daily Coenzyme Q10 (COQ-10 PO) Cymbalta 30 mg, 2 times daily gabapentin (Neurontin) 100 MG capsule TAKE 1 CAPSULE EVERY MORNING AND 2 CAPSULES AT BEDTIME, TAKE WITH THE 400MG TABLET gabapentin (Neurontin) 400 MG capsule TAKE 1 CAPSULE IN THE MORNING AND BEFORE BEDTIME hydroCHLOROthiazide (HYDRODiuril) 25 MG tablet Every morning HYDROcodone-acetaminophen (Colton) 5-325 MG tablet 1 tablet, Every 8 hours PRN hydroxychloroquine (PLAQUENIL) 200 mg, Daily indomethacin (INDOCIN) 25 mg, Daily RT lidocaine (Lidoderm) 5 % patch 1 patch, Apply externally, Daily, Apply for 12 hours daily magnesium oxide (MAG-OX) 400 mg, Daily RT meloxicam (MOBIC) 15 mg, Daily metoprolol tartrate (LOPRESSOR) 50 mg, Every 12 hours omeprazole (PRILOSEC) 40 mg, Daily before breakfast predniSONE (Deltasone) 20 MG tablet simvastatin (ZOCOR) 20 mg, Nightly tiZANidine (Zanaflex) 4 MG tablet Take 1/2-1 by mouth twice a day valsartan (DIOVAN) 160 mg, Daily Allergies[1] PAST MEDICAL HISTORY: SOCIAL HISTORY SURGICAL HISTORY: Medical History[2] Social History[3] Surgical History[4] REVIEW OF SYMPTOMS: Review of Systems Constitutional: Negative for appetite change, fatigue and fever. HENT: Negative for trouble swallowing. Respiratory: Negative for cough and shortness of breath. Cardiovascular: Negative for chest pain. Gastrointestinal: Negative for abdominal pain. Genitourinary: Negative for hematuria. Musculoskeletal: Negative for back pain. Skin: Negative for wound. Neurological: Negative for seizures. OBJECTIVE: Visit Vitals Ht 5' 1 Wt 149 lb BMI 28.15 kg/m?? Smoking Status Never BSA 1.71 m?? Physical Exam Constitutional: Appearance: Normal appearance. HENT: Head: Atraumatic. Eyes: General: No scleral icterus. Cardiovascular: Rate and Rhythm: Regular rhythm. Pulmonary: Effort: No respiratory distress. Abdominal: General: There is no distension. Tenderness: There is no abdominal tenderness. Skin: Findings: No bruising. Neurological: Mental Status: She is alert. Gait: Gait normal. ASSESSMENT AND PLAN: Assessment/Plan Diagnoses and all orders for this visit: Hiatal hernia Esophageal stricture Esophageal dysphagia Other chest pain Patient has a CT scan that shows gastric fundus in the mediastinum with hiatal hernia. 2022 had an esophagram that showed a distal esophageal stricture hiatal hernia was not noted. Patient has had dysphagia for some time. I had a discussion with the patient and daughter needs to have esophagus checked for stricture as well as for malignancy etcetera, I discussed with Dr. Dalton the glue mounter operator who can do a dilation if need be. He will see her in the near future for EGD. Also I ordered a upper GI to evaluate esophagus for its anatomy and consideration of possible hiatal hernia repair. I discussed with the patient and daughter plan. They very much appreciate. [1] Allergies Allergen Reactions Lorazepam Other Reaction(s): extreme drowsiness [2] Past Medical History: Diagnosis Date Anemia Arthritis Carpal tunnel syndrome Hypertension Hypokalemia Peptic ulcer disease Radiculopathy Restless leg syndrome Rheumatoid arthritis (HCC) [3] Social History Tobacco Use Smoking status: Never Smokeless tobacco: Never Substance Use Topics Alcohol use: Yes Alcohol/week: 6.0 standard drinks of alcohol Types: 6 Standard drinks or equivalent per week Comment: caffeine intake : none Drug use: Never [4] Past Surgical History: Procedure Laterality Date COLONOSCOPY Dr. Foley GALLBLADDER SURGERY 2019 HYSTERECTOMY 1980 OTHER SURGICAL HISTORY 2018 hammer toe SHOULDER SURGERY 2016 TONSILLECTOMY TOTAL KNEE ARTHROPLASTY Right 02/28/2019 [facility] [place] [facility] TUBAL LIGATION 1974 documented in this encounter Plan of Treatment NameTypePriorityAssociated DiagnosesOrder ScheduleFL upper GI wo KUBImaging Routine Hiatal hernia Esophageal stricture Esophageal dysphagia Expected: 01/24/2025, Expires: 01/24/2026NameTypePriorityAssociated Diagnoses Order ScheduleAmbulatory referral to GastroenterologyOutpatient ReferralRoutine Hiatal hernia Esophageal stricture Esophageal dysphagia Expected: 01/24/2025 (Approximate), Expires: 07/24/2025documented as of this encounter Visit Diagnoses Diagnosis Hiatal hernia- Primary Diaphragmatic hernia without mention of obstruction or gangrene Esophageal stricture Stricture and stenosis of esophagus Esophageal dysphagia Dysphagia, pharyngoesophageal phase Other chest pain documented in this encounter Care Teams Team MemberRelationshipSpecialtyStart DateEnd Date Florentino Mabry MD [address] [place] [address] [place] [address] PCP - GeneralFamily Qljwmtnz67/15/23 Bharath Bajwa DO [address] [place] [address] Mqjubthokxfjlk09/1/23 Anushka Helms DO [address] [place] [id number] Referring PhysicianNeurology1documented as of this encounter
--- OUTSIDE RECORDS SUMMARY | 2025-01-27 05:43 | XMS_ITS | Continuity of Care Document ---
Author Organization [facility] Address [address] [place] [address] Phone Care Team Providers Care [employer] Name Role Phone Florentino Mabry DO Primary Care Provider [phone] Florentino Mabry DO Attending Provider Amilcar Dalton MD Attending Provider Amilcar Dalton MD Other Provider [phone] Care Teams Patient Care Team Team Status: Active Member Role/Relationship Status Dates Florentino Mabry DO Primary Care Provider Active Visit Care Team Team Status: Inactive Member Role/Relationship Status Dates Florentino Mabry DO Primary Care Provider Active S tart: November 21, 2024 End: November 21, 2024DaRobert Arias ProviderActiveStart: November 21, 2024 End: November 21, 2024 Visit Care Team Team Status: Active Member Role/Relationship Status Dates Florentino Mabry DO Primary Care Provider Active S tart: November 23, 2024 Robert Campbell ProviderActiveStart: November 23, 2024 Visit Care Team Team Status: Inactive Member Role/Relationship Status Dates Florentino Mabry DO Primary Care Provider Active S tart: November 23, 2024 End: November 23, 2024DaRobert Arias ProviderActiveStart: November 23, 2024 End: November 23, 2024 Visit Care Team Team Status: Inactive Member Role/Relationship Status Dates Florentino Mabry DO Primary Care Provider Active S tart: December 02, 2024 End: December 02, 2024Daastonkaylee Mabry DOAttending ProviderActiveStart: December 02, 2024 End: December 02, 2024 Visit Care Team Team Status: Inactive Member Role/Relationship Status Dates Florentino Mabry Primary Care Provider Active S tart: December 05, 2024 End: December 05, 2024Daastonkaylee Mabry DOChaitanyaraul ProviderActiveStart: December 05, 2024 End: December 05, 2024 Visit Care Team Team Status: Inactive Member Role/Relationship Status Dates Florentino Mabry Primary Care Provider Active S tart: January 09, 2025 End: January 09, 2025Datramaine Clotilde oRbert ProviderActiveStart: January 09, 2025 End: January 09, 2025 Visit Care Team Team Status: Active Member Role/Relationship Status Padmini Florentino Mabry Primary Care Provider Active S tart: January 22, 2025 Robert Campbell ProviderActiveStart: January 22, 2025 Visit Care Team Team Status: Inactive Member Role/Relationship Status Dates Florentino Henryjessica Primary Care Provider Active S tart: January 23, 2025 End: January 23, 2025Datramaine Clotilde Robert ProviderActiveStart: January 23, 2025 End: January 23, 2025 Patient Care Team Team Status: Active Member Role/Relationship Status Padmini Good Clotilde Primary Care Provider Active S tart: January 27, 2025 Amilcar Dalton MDAttending ProviderActiveStart: January 27, 2025 Amilcar Dalton MDOther ProviderActiveStart: January 27, 2025 Chief Complaint and Reason for Visit Chief Complaint Admit Date R73.9, N30.90, E55.9, Z79.899, E78.5 Sep tember 2024 8:16am Referral Order November 23, 2024 1:02pm N39.0 November 23, 2024 1:15pm review labs/med refill December 02, 8:01am N39.0 December 05, 2024 12:37pm i49.9 r06.02 January 09, 2025 7 :33am elevated BP/ER f/u January 23, 2025 1:58pm dysphagia, esophageal stricture January 27, 2025 7:01am Reason for Visit Admit Date Anxiety December 02, 2024 8:01am Edema December 02, 2024 8:01am Hyperglycemia December 02, 2024 8:01am Hyperlipidemia December 02, 2024 8:01am Hypertension December 02, 2024 8:01am Iron deficiency anemia December 02, 025 8:01am [facility]:01am Restless leg syndrome December 02 8:01am SVT (supraventricular tachycardia) Septe er 2024 8:01am UTI (urinary tract infection) December 02, 2024 8:01am Vitamin D deficiency December 02 8:01am Weight loss December 02, 2024 8:01am Hiatal hernia January 23, 2025 1:58pm Hypertension January 23, 2025 1:58pm Allergies, Adverse Reactions, Alerts Allergen Type Severity Reaction Last Updated Verified Status lorazepam Adverse Reaction Severe Confusion January 27, 2025 7:23am Yes Active Social History Smoking Status Status Start Date End Date Date of Observa tion Never smoked tobacco (finding) January 27, 2025 7:30am Observation Status Observation Response Date of Response Legal Sex Female (finding) Sex [facility] 1944 Family History Relationship Condition Age at Onset Recorded Date/T gonzales daughter Malignant neoplasm Unknown fatherHeart diseaseUnknownDeceasedUnknownHiatal herniaUnknowngrandparentDeceased UnknownMalignant neoplasmUnknownHeart diseaseUnknownmotherDeceasedUnknown Malignant neoplasmUnknown Problems Active Problems Problem Diagnosis/Recorded Date Onset Date Status C omments UTI (urinary tract infection) November 23, 2024 10:23am Unknown Active Rheumatoid arthritisMay 2023 1:51pmUnknownActiveInsomniaMay 2023 1:51pmUnknownActiveOther migraine, not intractable, without status migrainosus January 16, 2025 12:39pmUnknownActiveCarpal tunnel syndrome of left wristMarch 2024 7:35amUnknownActiveShortness of breathSept2024 12:32pm UnknownActiveFatty liverFebruary 2023 8:01amUnknownActiveAnxietyFebruary 2023 8:01amUnknownActiveArrhythmiaSeptember 2024 10:24amUnknown ActiveEdemaSeptember 2024 7:41amUnknownActiveHistory of carpal tunnel surgery of right wristMarch 2024 7:23amUnknownActiveHyperglycemiaJune 2023 7:42amUnknownActiveHyperlipidemiaFebruary 2023 8:01amUnknownActive Pulmonary noduleMay [address] Mcrae in the past, has history of stable noncalcified pulmonary nodules bilaterallyOsteoarthritis August 20, 2023 7:36amUnknownActiveOsteopeniaFebruary 2023 8:01amUnknown ActiveNeuropathyMay 2023 1:55pmUnknownActiveRestless leg syndromeFebruary 2023 8:01amUnknownActiveSVT (supraventricular tachycardia)July 28, 2023 1:51pmUnknownActiveLumbar degenerative disc diseaseAugust 2023 2:58pm UnknownActiveWeight gainFebruary 2023 8:42amUnknownActiveWeight loss December 02, 2024 7:32amUnknownActiveIron deficiency anemiaFebruary 2023 8:01amUnknownActiveKnee pain, leftDecember 2023 8:29amUnknownActive Sensorineural hearing loss (SNHL) of right earOctober 2018 8:12amUnknown ActiveCystitisMarch 2023 12:34pmUnknownActiveHypertensionFebruary 2023 8:01amUnknownActiveNumbness and tingling in left handDecember 2023 8:29amUnknownActiveVitamin D deficiencyMay 2023 10:27amUnknownActiveHiatal herniaNovember 2024 2:19pmUnknownActiveInactive/Resolved Problems Problem Diagnosis/Recorded Date Onset Date Status C omments Anxiety July 17, 2024 11:55pm Unknown Resolved CephalgiaMay 2024 11:55pmUnknownResolvedNauseaMay 2024 11:55pmUnknown ResolvedAcute hypokalemiaMay 2024 11:56pmUnknownResolved Medications Medication Status Dose Units Route Directions Qty Days Refills S tart Date Stop Date End Date Reason(s) Instructions Adherence Cephalexin 500 mg capsule Discontinued 500 MG PO T wice daily 14 0May 18, 2023 12:00amJune 2023 7:11amCephalexin 500 mg capsule Pjvkkfzktkog581WOFEUpqoa times qxwku8916Ngzeh 2023 11:00pmMar 2023 9:51amCephalexin 500 mg fbaarrxActntafgegnl278BSPDIshtm times yjhve6911Iyhui 2023 9:50amJune 2023 7:11amNitrofurantoin Monohyd/M-Cryst (Macrobid) 100 mg tzmdxzlEjrhbquyvgaz858IQBMItnib gnvzr9533Qzopo 2023 11:00pmJune 2023 7:15ammust administer with a meal/foodClonazepam 0.5 mg tablet Sxdhhsuwusno7FYXm Mvtnujor10336Mcpjg 2023 9:31amMay 2023 7:27am Restless legs syndrome Restless legs syndrometake 1-2 (0.5 MG) tablets at HS & take 1 (0.5 MG) tab in the AM orally as directed;Clonazepam 0.5 mg iaqlzcXbwnsdfrxhlt5SFOm Byajajsn2539 0July 30, 2023 7:26amJune 2023 3:56pmRestless legs syndrome Restless legs syndrometake 1-2 (0.5 MG) tablets at HS & take 1 (0.5 MG) tab in the AM orally as directed;Clonazepam 0.5 mg dalosvXwlrknsyhnoz1CJAr Jeqwwnla5172 0August 31, 2023 3:55pmJuly 2023 8:05amRestless legs syndrome Restless legs syndrometake 1-2 (0.5 MG) tablets at HS & take 1 (0.5 MG) tab in the AM orally as directed;Clonazepam 0.5 mg kfdhglYlxmycwtqcmk5DZWv Icpndmvm9681 0July 2023 8:05amSeptember 2023 8:15amRestless legs syndrome Restless legs syndrometake 1-2 (0.5 MG) tablets at HS & take 1 (0.5 MG) tab in the AM orally as directed;Methylprednisolone (Medrol (Royal)) 4 mg tablets,dose ihfkEfxfkrlwkcyk1TLopj package ouedvrkgxs8658Zomx 2023 11:00pmJuly 2023 11:42amwith foodMethylprednisolone (Medrol (Royal)) 4 mg tablets,dose pack Ylabhmtyewsz8NKnhq package rccdfwfkol0451Zpsy 2023 11:42amAugust 2023 2:48pmwith foodPrednisone 20 mg kaipeoYkwebmejkldz0SU.with food or dlfp4820 October 21, 2023 11:00pmSeptember 2023 7:15amtake 3 tablets a day x3 days, 2 tabs a day x3 days and then 1 tab a day x3 days orally WITH FOOD ORMILK; Duloxetine 30 mg capsule,delayed release(DR/EC)Cxokdcxueeaz00RRGDNkamz daily October 29, 2023 8:16amAugust 2023 9:50amDuloxetine 30 mg capsule,delayed release(DR/EC)Aelopalocgjn82MJVVXoklw lbxlg9272Dwqzcl 15th, 2024 9:49amAugust 2023 9:53amDuloxetine 30 mg capsule,delayed release(DR/EC)Glcyfadhvrso20IE POTwice vtvbv88940Hxowrh 15th, 2024 9:52amAugust 2024 7:21amHydrocodone- Acetaminophen 5-325 mg keienmTkgtslmtrise5DWXQZHbteh 6 hours as needed for pain 0August 2023September 2023 7:15amDegeneration of intervertebral disc of lumbar region Other intervertebral disc degeneration, lumbar regionClonazepam 0.5 mg tablet Soqvxprnakek6SAPa Dkstkzdo07022Mtjiqtvrm 2023 8:12amOctober 2023 1:31pmRestless legs syndrome Restless legs syndrometake 1-2 (0.5 MG) tablets at HS & take 1 (0.5 MG) tab in the AM orally as directed;Clonazepam 0.5 mg ucwbkpTjapdqzjcyqs2TFDr Omfghkmu9072 0October 2023 1:30pmNovember 2023 1:57pmRestless legs syndrome Restless legs syndrometake 1-2 (0.5 MG) tablets at HS & take 1 (0.5 MG) tab in the AM orally as directed;Clonazepam 0.5 mg qgvnqyYyytrknyqxuh4BOZo Irpikqqo6838 0December 2023 3:03pmJanuary 2024 9:47amRestless legs syndrome Restless legs syndrometake 1-2 (0.5 MG) tablets at HS & take 1 (0.5 MG) tab in the AM orally as directed;Hydrocodone-Acetaminophen 5-325 mg tabletDiscontinued1 TABPOEvery 6 hours as needed for drqq7571Cvilfvgx 2023June 2024 8:44amLeft knee pain Pain in left kneeClonazepam 0.5 mg lidtmaCuxwviwzaghg5UXKp Bswssnkb44999Mwevptx 2024 9:46amFebruary 2024 12:41pmRestless legs syndrome Restless legs syndrometake 1-2 (0.5 MG) tablets at HS & take 1 (0.5 MG) tab in the AM orally as directed;Omeprazole 40 mg capsule,delayed release(DR/EC)Active 40MGPOTwice juiyk9608CjfgkoaApril 04, 2024 9:10amComplies with drug therapy Oseltamivir (Tamiflu) 75 mg fbdpqluVgpxsefznbhw91IQIHSlwiu011Eqjlhime 2024 12:00amMarch 2024 7:15amClonazepam 0.5 mg weeqfhYvfjneghexkh4NMJy Directed 13556Zdyrupaq 2024 12:41pmMarch 2024 7:51amRestless legs syndrome Restless legs syndrometake 1-2 (0.5 MG) tablets at HS & take 1 (0.5 MG) tab in the AM orally as directed;Simvastatin 20 mg ejmfvsVvxczk47JAURFhack kqtuaxw771 May 09, 2024 8:48amComplies with drug therapyMeloxicam 15 mg tablet Hjzfuulylzoa95ZTTNFsubz305Vjvir 2024 9:02amApril 2024 8:54amMeloxicam 15 mg tabletDiscontinued0.ROUTE.IFWIBTL229Ruetg 2024 8:53amJuly 2024 10:28amTAKE 1 TABLET DAILYClonazepam 0.5 mg ealycaOujwlpcfuxnr8XIKr Cswdeklh4598 0April 2024 2:07pmMay 2024 7:09amRestless legs syndrome Restless legs syndrometake 1-2 (0.5 MG) tablets at HS & take 1 (0.5 MG) tab in the AM orally as directed;Valsartan 160 mg ctlhtaRwseul238JOXSHnlyj092Xwg 2024 7:09amComplies with drug therapyClonazepam 0.5 mg kmmpcpYbxuhwjxvfdl6NZYv Lbvvdoez73172Dqt 27th, 2025 7:09amJune 2024 2:16pmRestless legs syndrome Restless legs syndrometake 1-2 (0.5 MG) tablets at HS & take 1 (0.5 MG) tab in the AM orally as directed;Clonazepam 0.5 mg rsuxvfBvstbgiqaphb5ADIk Ieapbdfq0510 0June 2024 2:16pmJuly 2024 7:51amRestless legs syndrome Restless legs syndrometake 1-2 (0.5 MG) tablets at HS & take 1 (0.5 MG) tab in the AM orally as directed;Ropinirole 0.25 mg tabletDiscontinued0.25MGPODaily at qepmrty339Woqe 29th, 2025 11:00pmJuly 2024 7:51amadminister 1-3 hours before bedtimeRopinirole 0.25 mg tabletDiscontinued0.25MGPODaily at qpfyxsq570 October 05, 2024 7:50amOctober 2024 10:53amadminister 1-3 hours before bedtimeClonazepam 0.5 mg pjlnwcAgmtkneusegv2WGKo Ulpnwdhj43411Hixn 2024 7:51amJuly 2024 7:51amRestless legs syndrome Restless legs syndrometake 1-2 (0.5 MG) tablets at HS & take 1 (0.5 MG) tab in the AM orally as directed;Clonazepam 0.5 mg uglpzuUluyjeqtdtoh0ZUQv Gocopxwj3500 0July 2024 7:51amSeptember 2024 7:43amRestless legs syndrome Restless legs syndrometake 1-2 (0.5 MG) tablets at HS & take 1 (0.5 MG) tab in the AM orally as directed;Meloxicam 15 mg tabletDiscontinued0.ROUTE.YRFGIYV915 October 12, 2024 10:27amAugust 2024 7:21amTake 1 tablet by mouth once daily Duloxetine 30 mg capsule,delayed release(DR/EC)Discontinued0.ROUTE.UAAJZTP2900 October 21, 2024 7:21amSept2024 7:24amTAKE 1 CAPSULE TWICE DAILY Meloxicam 15 mg tabletDiscontinued0.ROUTE.WFVUJVI566Gpobgv 8th, 2025 7:21am December 02, 2024 7:24amTAKE 1 TABLET DAILYClonazepam 0.5 mg tablet Mabshfgxpkmz9BVBo Wdkyvufl58245Yeqgzavwz 10th, 2025 7:43amNovemb2024 2:04pmRestless legs syndrome Restless legs syndrometake 1-2 (0.5 MG) tablets at HS & take 1 (0.5 MG) tab in the AM orally as directed;Cefdinir 300 mg lkwvrxvZzctgomijnad438QHCYYftoe51020 November 22, 2024 11:00pmNov2024 2:04pmTake 2 (300 mg) capsules together once a day for 10 daysRopinirole 0.25 mg tabletDiscontinued0.25MGPO Daily at ofauhdp516Nfmmjss 2024 10:53amNovember 2024 2:28pm administer 1-3 hours before bedtimeMeloxicam 15 mg tabletDiscontinued0.ROUTE .GOWOMOY067Ybdmlblk 3rd, 2025 9:09amNovember 2024 7:26amTake 1 tablet by mouth once dailyAmlodipine 5 mg tabletDiscontinued0.ROUTE.YAINRZZ000Gsncdxou 3rd, 2025 9:09amNovember 2024 2:11pmTAKE 1 TABLET DAILYZolmitriptan (Zomig) 2.5 mg tabletDiscontinued2.5MGPO.QBIFDWT73NnoeesltJanuary 16, 2025 12:00am January 16, 2025 3:52pmOther migraine without status migrainosus, not intractable Other migraine, not intractable, without status migrainosus2.5 mg orally at onset of migraine headache may repeat in 2 hoursRizatriptan (Maxalt) 10 mg iflgauWtznwg0EX.KYTSSKI86Iyvaiquh 3rd, 2025 12:00amtake 1 tab at onset of headache; if no relief may repeat 1 tab after at least 2 hrs; max = 2 tabs/24 hr POComplies with drug therapyMeloxicam 15 mg rrunxrMcozrv63HFTVPrvdn as needed for painNovember 2024 12:00amTake 1 tablet by mouth once dailyComplies with drug therapyHydrochlorothiazide 25 mg afcajzUeytwz97OQEMIshfiAezahvpr 2024 12:00amComplies with drug therapyMetoprolol Succinate 50 mg Tablet Extended Release 24 YuOjqqur87OFMXLinrb dailyJanuary 2017 12:00amComplies with drug therapyHydrocodone-Acetaminophen 5-325 mg jerpzxOuholwwgriwe5DXJSLH4Z as needed for PainJanuary 2017 12:00amFebruary 2023 8:18amMeloxicam 15 mg QqeubkFmjgpyzswloz31ALJNYuamhTsffwjx 2017 12:00amAugust 20, 2023 7:39am Clonazepam 0.5 mg nwzlvfJfuqumaliwxa8UJQDMSvjii at bedtimeJanuary 2017 12:00amFebruary 2023 8:54amAmlodipine 5 mg LleuhdRxhjjciedrsm1YLVEKNiuio March 17, 2017 12:00amAugust 2023 2:47pmOmeprazole 40 mg Capsule,Delayed Release(Dr/Ec)Kzrpzymdrgwp42XHWPGvnnrJnaiyde 2017 12:00amJune 2023 7:17amAspirin (Aspir-81) 81 mg Tablet,Delayed Release (Dr/Ec)Mkoxujgbtbsz14GUAF DailyMarch 17, 2017 12:00amFebruary 2023 8:16amAmitriptyline 25 mg NtqmchTrdvfsltzcqm28HNREDtqqr at bedtimeMarch 17, 2017 12:00amMay 2024 11:07pmTriamcinolone Acetonide 0.025 % QfvnkMmtqxgvduzuj5URSVWBNOAIPPBRzaoj March 17, 2017 12:00amJune 2023 7:17amSimvastatin 20 mg Tablet Ztfowznwowod39HLMSYradh eveningMarch 17, 2017 12:00amFebruary 2024 8:49amDuloxetine 30 mg Capsule,Delayed Release(Dr/Ec)Ghkwofofytcx22CETPHsbyu March 17, 2017 12:00amAugust 2023 8:17amZolmitriptan (Zomig) 2.5 mg [place],Non-CszdoigXlhhvzjjtfew2JYVPJIFCDRESGiqp times daily as needed for HeadacheMarch 17, 2017 12:00amNoveun[facility] 2024 12:38pmMultivitamin Tablet Agrmkd8XCHLIVlpasLniiqed 2018 11:00pmComplies with drug therapyAscorbic Acid (Vitamin C) (Vitamin C) 500 mg LvmmlkMxtubh661ZQDITolmyEhjmjjn 2018 11:00pmComplies with drug therapyFerrous Sulfate (Iron) 325 mg (65 mg iron) TouvybBwuqrxnaujlw38QNEMWzgodHdzavog 2018 11:00pmAugust 20, 2023 7:17am Vitamin E 400 unit BxxhbfeBeecbunamrdy553JMUUOKAaascGthpsdg 2018 11:00pm January 23, 2025 2:30pmVitamin B Complex (Super B-50 Complex) CapsuleActive1 CAPPODailyOctober 2018 11:00pmComplies with drug therapyCoenzyme Q10 (Coq- 10) 100 mg GrpwwptRrmtcs418KUGATgczyBekaowd 2018 11:00pmComplies with drug therapyCholecalciferol (Vitamin D3) (Vitamin D3) 5,000 unit GgrfgrIzklji0581HPJT PODailyOctober 2018 11:00pmComplies with drug therapySodium Bicarbonate 325 mg GktlseUiphssdroayf5CKVCHetzf dailyOctober 2018 11:00pmFebruary 2023 8:19amOndansetron Hcl 4 mg hcahzxNfglmmewklci4NMUYNruoh 8 hours as needed for nausea and wcmmvlgo5459Vit 4th, 2025 11:00pmNovember 2024 2:24pmHydroxychloroquine 200 mg qwhtlsLpqddmstltai876YMRYTgkvq dailyFebruary 2023 12:00amJune 2024 9:29amFreeTextSig: TAKE 1 TABLET BY MOUTH TWICE DAILY Oral; Note: Source Status: Continue; Provider: MEG TREVINO Gabapentin 100 mg capsuleDiscontinuedMGPOFebruary 2023 12:00amFebruary 2023 8:21amFreeTextSi capsule Orally 4 in the am. and 5 at night; Note: Source Status: Taking; Provider: Clotilde Good CAspirin (Tre Chewable Aspirin) 81 mg tablet,umfsiwboXgonnuanvxfi49WZJNIhtbwJctskmwv 2023 12:00am May 13, 2023 8:16amGabapentin 100 mg wziyqoiCjzgbpqtbyun253TZECBbeicsph 2023 8:17amJune 2023 7:17amFreeTextSi capsule Orally 5 in the am. and 5 at night; Note: Source Status: Taking; Provider: Clotilde Good CSodium Chloride 1,000 mg tablet,jppqjjsXsbxeygpipca8IGZMGWnehr dailyFebruary 2023 12:00amJun2023 7:17amFreeTextSi tablet Orally Twice a day; Note: Source Status: Taking; Provider: Clotilde Good CVitamin B Complex tablet Pevtohdrlrhu7LZCODLlpicNowqzoax 2023 12:00amAugust 2023 2:49pmOmega-3 Fatty Acids 1,000 mg sknytniIedblhmgmyzm1590CBADZkawdVqwucdih 2023 12:00am August 20, 2023 7:16amClonazepam 0.5 mg unqzcoKrcxgswdsiyn1WQUv Directed as neededbruary 2023 8:52amFebruary 2023 8:55amtake 1-2 (0.5 MG) tablets at HS & take 1 (0.5 MG) tab in the AM orally as directed PRN;Clonazepam 0.5 mg jwvsfmGxxsvgehoaba2TMTz Snbvmjox37889Umblkugw 2023 8:54amApril 2023 9:31amRestless legs syndrome Restless legs syndrometake 1-2 (0.5 MG) tablets at HS & take 1 (0.5 MG) tab in the AM orally as directed;Ferrous Sulfate (Iron) 325 mg (65 mg iron) tablet Igxstztvjghw42BXLW.COMPLEXE[facility]2023 7:12amSept2023 7:16am1 tablet by mouth Thursday and ThuGabapentin 100 mg vryrictUxagqarrssve3VS.COMPLEX August 20, 2023 7:12amMay 2024 11:06pmtake 1 (100 MG) capsule in the morning by mouth and take 2 (100 MG) capsules at nightGabapentin 400 mg capsule Xplrprnogjif740YGRJOdezq ikrcp277Fnpo 5th, 2024 11:00pmAry 2024 11:06pm Omeprazole 40 mg capsule,delayed release(DR/EC)Vxibytynlizb73NQNGNziww dailyEcu Health [facility] Hospitale 2023 7:16amJanuary 2024 9:11amSodium Chloride 1,000 mg tablet,soluble Zjsmwf3247YRUOHbsad dailyEcu Health [facility] Hospital2023 7:16amComplies with drug therapy Meloxicam 15 mg iovisuTgnczbanemta64STTWWotrl011Vvgw 2023 7:38amDecember 2023 1:54pmFerrous Sulfate (Iron) 325 mg (65 mg iron) totoorWctfdaokuuec29 MGPO.COMPLEXMimbres [facility] Hospital2023 7:14amSeptember 2023 7:24am1 tablet by mouth Thursday and Thu and ThuFerrous Sulfate (Iron) 325 mg (65 mg iron) tablet Fvaarkeuredq11MUCS.COMPLEXMimbres Memorial Hospital2023 7:24amSeptember 2023 7:50am 65 mg orally 1 tablet by mouth Thursday and Thu and Thu;Ciprofloxacin Hcl 500 mg vhgruzRftxhzqscnus951EOQSUhmcf evorp388Forrr 2023 11:00pmTri[facility] 2023 8:09amHydrocodone-Acetaminophen 5-325 mg qgwbwxNlhehlnyndub6XEENRQdggr 6 hours as needed for xstm1434Smfgccok ecember 2023 8:13amLeft knee pain Pain in left kneeClonazepam 0.5 mg qefelaWrfslbospoan4VFVa Qoabwbqj66879Cjgur 2024 7:50amApril 2024 2:07pmRestless legs syndrome Restless legs syndrometake 1-2 (0.5 MG) tablets at HS & take 1 (0.5 MG) tab in the AM orally as directed;Amlodipine 5 mg vhpdlfOnybbuozqjmp1JRUCGzvxiJnxssnri 4th, 2024 12:00amNove2023 1:57pmAmlodipine 5 mg ptuqnnHlllnowilavm1MJ BKQvvtj492Fyfzpiuu 4th, 2024 1:57pmSeptember 2024 7:51amClonazepam 0.5 mg zqlbqwXfrqfekltpfn5RIUo Bauzxbyq60328Pmwhjtcx 2023 1:57pmDecemb2023 3:03pmRestless legs syndrome Restless legs syndrometake 1-2 (0.5 MG) tablets at HS & take 1 (0.5 MG) tab in the AM orally as directed;Duloxetine 30 mg capsule,delayed release(DR/EC)Active 30MGPOTwice dailySeptember 2024 7:23amComplies with drug therapyMeloxicam 15 mg knwtqzCmyczupoqhmo98GISWYfkbwIleyjwjhk 19th, 2025 7:23amNove2024 9:10amAmlodipine 5 mg kmixoqHaagnggcfofa9GMXzzch601Zfohsgqee 2024 7:50am January 16, 2025 9:10amtake 1/2 of a 5 MG tablet orally daily;magnesium DiscontinuedPODailyJanuary 23, 2025 12:00amNove2024 2:24pm Amlodipine 5 mg wqhfosFrxvvfdgkykx8GAAIUohxjKxvswmdz 10th, 2025 2:11pmNov2024 2:23pmHydroxychloroquine (Plaquenil) 200 mg itqeepWrsyzp812TMNAChmwp dailyNov2024 12:00amComplies with drug therapyClonazepam 0.5 mg miflxsYinntmqhrhaf5AUWl Aerpvuug01407Xrtacfzc 10th, 2025 2:27pmNov2024 8:35amRestless legs syndrome Restless legs syndrometake 1-2 (0.5 MG) tablets at HS & take 1 (0.5 MG) tab in the AM orally as directed;Turmeric Root Extract 500 mg tttqemvYiwapysppoxk1403AU MHLhtox011JqbaexebJanuary 23, 2025 12:00amNovember 2024 8:38am Hydrochlorothiazide 25 mg ilkvveGpgkdgkovhff68KISMOarqd ptsdokd479HphzuvhgJanuary 23, 2025 12:00amNovemb2024 7:26amFerrous Sulfate (Iron) 325 mg (65 mg iron) atzhhhOkxsdn806SCAZ.once weeklySept2023 7:48amComplies with drug therapyZinc Amino Acid Chelate 50 mg dodgqhYrmvjlozobxz75FNZSTcdskEjqenj 2023 11:00pmNov2024 2:30pmValsartan 160 mg qlboblVeujxncbnnce203DCNG DailyAugust 2023 11:00pmMay 2024 7:09amHydrocodone-Acetaminophen 5- 325 mg cxjdbfIcbqktoitkfa3BIKYIRbyrz 6 hours as needed for teyo8939Usobej ugust 2023 7:28amDegeneration of intervertebral disc of lumbar region Other intervertebral disc degeneration, lumbar regionHydroxychloroquine 200 mg wsyxgoFktpkydkiwig784TMOWClkbx pxmor38514Ibyn 2024 9:26amSeptember 2024 7:14am Immunizations Immunization Event Date Not Given Reason Dose Number Featherer Lot Number Reason(s) Given Vaccine Information Statement (VIS) Detail Administration Location influenza, unspecified formulation January 11, 2020 Zoster Vaccine Recombinant, AdjuvantedSeptember 2018Trivalent Influenza VaccineOctober 2015Trivalent Influenza VaccineSeptember 2016Trivalent Influenza VaccineSeptember 2017Trivalent Influenza VaccineSeptember 2018Trivalent Influenza VaccineOctober 2019 Medical Equipment Device Date Implanted Device Details [id number] .[id number] STERILE 4IN March 18, 2017 Procedures Procedure Date Performed Status Urine Culture November 21, 2024 completed Blood Culture November 23, 2024 completed Blood Culture November 23, 2024 completed Urine Culture December 05, 2024 completed Relevant Diagnostic Tests and/or Laboratory Data Laboratory Results Test Collection Date/Time Result Date/Time Result Interpretation Reference Range Result Comment Performing Site D-Dimer Quantitative (PE/DVT) January 22, 2025 6:25am January 22, 2025 6:25am 0.43 mg/L FEU <=0.59Increases in D-Dimer concentration observed withthromboembolic events can be variable due to localization,size, and age of the thrombus. Therefore, a thromboembolicevent cannot be diagnosed with certainty on the basis of thereference range. D-Dimers may also be elevated for a varietyof disorders inc luding advanced age, , coronarydisease, cancer, liver disease, infection, inflammation,hematoma, DIC, trauma, post-surgery, diabetes, thrombolyticor anticoagulant therapy, stress, and generalizedhospitalization. LipaseJanuary 22, 2025 6:25amNovemb2024 6:25am39.0 U/L16.0-77.0 Troponin I High SensitivityJanuary 22, 2025 6:25amNove2024 6:25am4.4 pg/mL4.0-51.3CUT-OFF POINTS HAVE BEEN ESTABLISHED BASED ON THE FOURTHUNIVERSAL DEFINITION OF MYOCARDIAL INFARCTION. THE UPPERREFERENCE LIMIT (URL) OF TROPONIN, DEFINED THE 99THPERCENTILE OF cTnI DISTRIBUTION IN A REFERENCE POPULATION,HAS BEEN CONFIRMED THE DECISION THRESHOLD FOR MIDIAGNOSIS.99TH PERCENTILE = 51.4 PG/MLNOTE: HIGH-SENSITIVITY TROPONIN ASSAY IS NOT INTENDED TO BEUSED IN ISOLATION BUT SHOULD BE INTERPRETED IN CONJUNCTIONWITH OTHER DIAGNOSTIC AND CLINICAL INFORMATION.Anion GapJanuary 22, 2025 6:25amNovemb2024 6:25am 14.1Lactic Acid LevelJanuary 22, 2025 6:25amNove2024 6:25am1.7 mmol/L0.4-2.0Basophils # (Auto)January 22, 2025 6:25amNove2024 6:25am0.1 10 3/uL0.0-0.1Urine Other CastsFlaget Memorial Hospital 2024 8:18amNONE SEEN #/LPFNONE SEENAlbumin/Globulin RatioNoveunited states [facility] 2024 6:25amNovember 2024 6:25am1.5Basophils (%) (Auto)January 22, 2025 6:25amNoveer 2024 6:25am 1.1 %0.2-2.0Urine Other CrystalsNovember 2024 8:18amNone Seen #/HPFNone SeenAlbuminNovbanner baywood medical center 2024 6:25amNoveer 2024 6:25am4.4 g/dL3.4-5.0 Eosinophils # (Auto)January 22, 2025 6:25amNoveer 2024 6:25am0.3 10 3/uL0.0-0.7Urine BacteriaFlaget Memorial Hospital 2024 8:18amNONE SEEN #/HPFNONE SEEN Alkaline PhosphataseNovbanner baywood medical center 2024 6:25amNoveer 2024 6:25am96 U/L 46-116Eosinophils (%) (Auto)January 22, 2025 6:25amNoveer 2024 6:25am 3.8 %0.9-7.0Urine BilirubinFlaget Memorial Hospital 2024 8:18amNEGATIVENEGATIVEAlanine Aminotransferase (ALT/SGPT)January 22, 2025 6:25amNoveer 2024 6:25am33 U/U16-24JvxmgpjityLlqwdqpe 2024 6:25amNoveer 2024 6:25am45.9 % 36.0-48.0Urine Occult BloodFlaget Memorial Hospital 2024 8:18amNEGATIVENEGATIVEAspartate Amino Transf (AST/SGOT)January 22, 2025 6:25amNoveer 2024 6:25am27 U/L 15-37HemoglobinFlaget Memorial Hospital 2024 6:25amNoveer 2024 6:25am15.3 g/dL 12.0-16.0Urine AppearanceNovbanner baywood medical center 2024 8:18amCLEARCLEARBUN/Creatinine Ratio January 22, 2025 6:25amNovember 2024 6:25am18.3Immature Granulocyte # (Auto)January 22, 2025 6:25amNovember 2024 6:25am0.01 10 3/uL0.00-0.03 Urine ColorNovember 2024 8:18amLT. YELLOWYELLOWBlood Urea NitrogenNovember 2024 6:25amNovember 2024 6:25am15.0 mg/dL7.0-18.0Immature Granulocyte % (Auto)January 22, 2025 6:25amNovember 2024 6:25am0.1 %0.0-0.5Urine Glucose (UA)January 22, 2025 8:18amNEGATIVE mg/dLNEGATIVECalcium LevelNovember 2024 6:25amNovember 2024 6:25am9.5 mg/dL8.5-10.1Lymphocytes # (Auto) January 22, 2025 6:25amNovember 2024 6:25am2.2 10 3/uL1.2-3.8Urine KetonesNovember 2024 8:18amNEGATIVE mg/dLNEGATIVEChloride LevelNovember 2024 6:25amNovember 2024 6:25am99 mmol/B82-310Xkjcogqxtzg (%) (Auto) January 22, 2025 6:25amNovember 2024 6:25am31.3 %20.5-60.0Urine Leukocyte EsteraseNovember 2024 8:18amNEGATIVENEGATIVECarbon Dioxide LevelNovember 2024 6:25amNovember 2024 6:25am29.1 mmol/L21.0-32.0Mean Corpuscular HemoglobinNovember 2024 6:25amNovember 2024 6:25am28.8 pg26.7-34.0 Urine MucusNovember 2024 8:18amNONE SEENNONE SEENCreatinineNovbanner baywood medical [facility] 2024 6:25amNovember 2024 6:25am0.82 mg/dL0.55-1.02Mean Corpuscular Hemoglobin ConcentNovbanner bay[facility] medical center 2024 6:25amNovember 2024 6:25am33.3 g/dL 29.9-35.2Urine NitriteNovbanner bay[facility] medical center 2024 8:18amNEGATIVENEGATIVEEstimated GFR ()January 22, 2025 6:25amNoveer 2024 6:25am>60>=60 mL/min/1.73m 2Mean Corpuscular VolumeNovbanner baywood medical center 2024 6:25amNoveer 2024 6:25am86.3 fL81.0-99.0Urine pHFlaget Memorial Hospital 2024 8:18am7.55.0-9.0Estimated GFR (Non- AmericanNovbanner baywood medical center 2024 6:25amNove2024 6:25am>60>=60 mL/min/1.73m 2Monocytes # (Auto)January 22, 2025 6:amNoveunited states [facility] 2024 6:25am0.9 10 3/uLAbove high normal0.3-0.8Urine ProteinFlaget Memorial Hospital 2024 8:18am NEGATIVE mg/dLNEG/TRACEGlobulinNovbanner [facility] center 2024 6:25amNoveer 2024 6:25am2.9 g/dLMonocytes (%) (Auto)January 22, 2025 6:25amNoveer 2024 6:25am12.5 %Above high normal1.7-12.0Urine RBCNovbanner [facility] center 2024 8:04zv3-2 #/HPF 0-2Glucose LevelNovbanner [facility] 2024 6:25amNove2024 6:23pc989 mg/dLAbove high fqozyu96-925Eszu Platelet VolumeNovbanner bay[facility] medical center 2024 6:25amNoveer 2024 6:25am10.3 fL9.5-13.5Urine Specific GravityFlaget Memorial Hospital 2024 8:18am1.010 1.005-1.025Potassium LevelNovember 2024 6:25amNovember 2024 6:25am4.2 mmol/L3.5-5.1Neutrophils # (Auto)January 22, 2025 6:25amNovember 2024 6:25am3.6 10 3/uL1.4-6.5Urine Squamous Epithelial CellsNovember 2024 8:18am RARE #/LPFNONE/RARESodium LevelNovbanner baywood medical center 2024 6:25amNovember 2024 6:39le498 mmol/Z084-040Wqqtllohpqu (%) (Auto)January 22, 2025 6:25amNoveer 2024 6:25am51.2 %43.0-75.0Urine UrobilinogenNovbanner baywood medical center 2024 8:18am0.2 EU/dL0.2-1.0Total BilirubinNovbanner [facility] 2024 6:25amNoveer 2024 6:25am0.5 mg/dL0.2-1.0Platelet CountNovbanner baywood medical center 2024 6:25amNoveer 2024 6:47dk429 10 3/nX949-522Ptklk WBCNovbanner baywood medical center 2024 8:18amNONE SEEN #/HPFNONE SEENTotal ProteinNovember 2024 6:25amNoveer 2024 6:25am7.3 g/dL6.4-8.2Red Blood CountNovbanner baywood medical center 2024 6:25amNovember 2024 6:25am5.32 10 6/uL 4.20-5.40Red Cell Distribution WidthNovember 2024 6:25amNove2024 6:25am12.5 %11.0-15.0Corrected White Blood CountNovember 2024 6:25am January 22, 2025 6:25am7.1 10 3/uL4.0-11.0Corrected White Blood CountSeptember 2024 7:20amSeptember 2024 9:11am4.8 10*3/uL3.8-11.6FSt. [facility] [id number] [address] [facility] [address]Qxocuoeamlk WBC CountSeptember 2024 7:20amSeptember 2024 9:11am4.8 10*3/uL3.8-11.6FSt. [facility] [id number] [address] [facility] 81367Ajo Blood CountSeptember 2024 7:20amSeptember 2024 9:11am5.04 10*6/uLAbove high normal3.60-5.00[facility] [id number] [address] [facility] 14819GianmxnnrvDnwhjwlxo 2024 7:20amSept2024 9:11am 14.5 g/dL11.8-15.4FSt. [facility] [id number] [address] [facility] [address]JdxvfynewkVljcedclb 2024 7:20amSept2024 9:11am 42.9 %34.0-46.4FSt. [facility] [id number] [address] [facility] 507[address]Wpfs Corpuscular VolumeSeptember 2024 7:20amSept2024 9:11am85.0 yI56-166KvoxtaqgmAvita [facility] [id number] [address] [facility] 30206Jfcg Corpuscular HemoglobinSeptember 2024 7:20amSept2024 9:11am28.8 pg24.7-34.3FSt. [facility] [id number] [address] [facility] 93048Wuwp Corpuscular Hemoglobin ConcentSeptember 2024 7:20am Breana 2024 9:11am33.9 g/dL32.0-35.0[facility] [id number] [address] [facility] 15775Jdf Cell Distribution WidthSeptember 2024 7:20amSept2024 9:11am13.2 %11.9-15.3FSt. [facility] [id number] [address] [facility] 19988Foznvknt CountSept2024 7:20amSept2024 9:34ae180 10*3/dZ815-222AiubmbwsxAv[facility] [id number] [address] [facility] 10679Rrwk Platelet VolumeSept2024 7:20amSept2024 9:11am8.1 fL6.3-10.7FSt. [facility] [id number] [address] [facility] 74544Gasnlmhbwzg (%) (Auto)November 21, 2024 7:20amSept2024 9:11am42.2 %.[facility] [id number] [address] [facility] 90702Pwtqxspnmsz (%) (Auto)November 21, 2024 7:20amSept2024 9:11am39.1 %.[facility] [id number] [address] [facility] 56110Kkotodmra (%) (Auto)November 21, 2024 7:20amSept2024 9:11am12.2 %.[facility] [id number] [address] [facility] 46564Dupgygjcbhj (%) (Auto)November 21, 2024 7:20amSept2024 9:11am5.2 %.[facility] [id number] [address] [facility] 43873Mikkbcvwd (%) (Auto)November 21, 2024 7:20amSept2024 9:11am1.3 %.[facility] [id number] [address] [facility] 90160Ijujxprjw RBC Relative Count (auto)November 21, 2024 7:20am November 21, 2024 9:11am0.1 /100{WBC}0-0.5FSt. [facility] [id number] [address] [facility] 51015Yubfdidimjq # (Auto)November 21, 2024 7:20amSept2024 9:11am2.0 10*3/uL1.8-7.7FSt. [facility] [id number] [address] [facility] 59526Zfffcdkiatf # (Auto)November 21, 2024 7:20amSeptember 2024 9:11am1.9 10*3/uL1.00-4.8[facility] [id number] [address] [facility] 45589Bnlwbwnnh # (Auto)November 21, 2024 7:20amSeptember 2024 9:11am0.6 10*3/uL0.0-0.8[facility] [id number] [address] [facility] 98900Nwbarffijid # (Auto)November 21, 2024 7:20amSeptember 2024 9:11am0.2 10*3/uL0.0-0.45[facility] [id number] [address] [place] [address]75470Basophils # (Auto)November 21, 2024 7:20amSeptember 2024 9:11am0.1 10*3/uL0.0-0.2FSt. [facility] [id number] [address] [facility] 23099Thugm ColorSeptember 2024 7:20amSeptember 2024 9:09am Light-yellowYellowAvita Health System [facility] [id number] [address] [facility] 03106Nnlko ColorSeptember 2024 11:44amSeptember 2024 1:07pmColorlessYelAdena [facility] [id number] [address] [facility] 37504Uexxx AppearanceSeptember 2024 7:20amSeptember 2024 9:09amClearClearAvita Health System [facility] [id number] [address] [facility] 22166Dbwsq AppearanceSeptember 2024 11:44amSeptember 2024 1:07pmClearClearAvita [facility] [id number] [address] [facility] 10459Kyflc Specific GravitySeptember 2024 7:20amSeptember 2024 9:09am1.0111.001-1.030[facility] [id number] [address] [facility] 38007Hidsf Specific GravitySeptember 2024 11:44amSeptember 2024 1:07pm1.0041.001-1.030[facility] [id number] [address] [facility] 19295Bslnd pHSeptember 2024 7:20amSeptember 2024 9:09am7.5 5.0-9.0[facility] [id number] [address] [facility] 25634Zexhb pHSeptember 2024 11:44amSeptember 2024 1:07pm 6.55.0-9.0[facility] [id number] [address] [facility] 20974Kmlsq Leukocyte EsteraseSeptember 2024 7:20amSeptember 2024 9:09amNegativeNegativeAv[facility] Health [facility] [id number] [address] [facility] 20252Xqupp Leukocyte EsteraseSeptember 2024 11:44amSeptember 2024 1:07pmNegativeNegativeAv[facility] [id number] [address] [facility] 16692Ppslz NitriteSeptember 2024 7:20amSeptember 2024 9:09amNegativeNegativeAv[facility] [id number] [address] [facility] 67750Hskpy NitriteSeptember 2024 11:44amSeptember 2024 1:07pmNegativeNegativeAv[facility] [id number] [address] [facility] 57175Tiunr ProteinSeptember 2024 7:20amSeptember 2024 9:09amNegative mg/dLNegativeAv[facility] [id number] [address] [facility] 87736Qngfs ProteinSeptember 2024 11:44amSeptember 2024 1:07pmNegative mg/dLNegativeAv[facility] [id number] [address] [facility] 53496Gzjvx Glucose (UA)November 21, 2024 7:20amSeptember 2024 9:09amNormal mg/dLNormalAv[facility] [id number] [address] [facility] 44405Vgghi Glucose (UA)December 05, 2024 11:44amSeptember 2024 1:07pmNormal mg/dLNormalAv[facility] [id number] [address] [facility] 82818Rxuey KetonesSeptember 2024 7:20amSeptember 2024 9:09amNegativeNegativeAv[facility] [id number] [address] [facility] 92822Cdyar KetonesSeptember 2024 11:44amSeptember 2024 1:07pmNegativeNegativeAv[facility] [id number] [address] [facility] 48068Ocjgk UrobilinogenSeptember 2024 7:20amSeptember 2024 9:09amNormal mg/dLNormalAvita [facility] [id number] [address] [facility] 73032Mqlga UrobilinogenSeptember 2024 11:44amSeptember 2024 1:07pmNormal mg/dLNormalAv[facility] [id number] [address] [facility] 29999Osfwl BilirubinSeptember 2024 7:20amSeptember 2024 9:09amNegativeNegativeAv[facility] [id number] [address] [facility] 63518Ccety BilirubinSeptember 2024 11:44amSeptember 2024 1:07pmNegativeNegativeAv[facility] [id number] [address] [facility] 07957Axjki Occult BloodSeptember 2024 7:20amSeptember 2024 9:09amNegativeNegativeFirelands [facility] [id number] [address] [facility] 51672Nzzfh Occult BloodSeptember 2024 11:44amSeptember 2024 1:07pmNegativeNegativeFirSelect Medical Specialty [facility] [id number] [address] [facility] 87997Vdixcef LevelSeptember 2024 7:20amSeptember 2024 9:24am99 mg/wD78-308PFW recommended reference rangeRandom Glucose Reference Range is dependent on time and content of last meal. Glucose of more than 200 mg/dL in a nonstressed, ambulatory subject supports the diagnosisof Diabetes Mellitus.[facility] [id number] [address] [facility] 65185Xckeu Urea NitrogenSeptember 2024 7:20amSeptember 2024 9:24am9 mg/dL7-25[facility] [id number] [address] [facility] 39614UaqtrdddoaMcurzipvo 2024 7:20amSeptember 2024 9:24am 0.65 mg/dL0.60-1.20[facility] [id number] [address] [facility] 13353Wlauofwhv GFR (CKD-EPI)November 21, 2024 7:20amSeptember 2024 9:24am> 60.0 mL/MinAvita [facility] [id number] [address] [place] [address]754[address]Sodium LevelSeptember 2024 7:20amSeptember 2024 9:65dj144 mmol/K128-644VzbjjvfrpAvita [facility] [id number] [address] [facility] 67766Lgmtirmrw LevelSeptember 2024 7:20amSeptember 2024 9:24am4.6 mmol/L3.5-5.1FSt. [facility] [id number] [address] [facility] 39939Fevhmpjv LevelSeptember 2024 7:20amSeptember 2024 9:03wt220 mmol/Q91-330UholffgcsAvita Health System [facility] [id number] [address] [facility] 58127Vihcrf Dioxide LevelSeptember 2024 7:20amSept2024 9:24am29.7 mmol/L21.0-31.0[facility] [id number] [address] [facility] 99388Csjor GapSeptember 2024 7:20amSeptember 2024 9:24am 9.9 mEq/L6.0-15.0[facility] [id number] [address] [facility] 96714Zxyptme LevelSeptember 2024 7:20amSeptember 2024 9:24am9.6 mg/dL8.6-10.3FSt. [facility] [id number] [address] [facility] 22316Cxwzt ProteinSeptember 2024 7:20amSeptember 2024 9:24am6.7 g/dL6.4-8.9[facility] [id number] [address] [facility] 72738TwykbnxEvroijxtl 2024 7:20amSeptember 2024 9:24am4.7 g/dL3.5-5.7FSt. [facility] [id number] [address] [facility] 48038PfrhkvkqKmgsgdplv 2024 7:20amSeptember 2024 9:24am2.0 g/dLAvita Health System Ontario Hospital [facility]tr [id number] [address] [facility] 61590Mzrmryq/Globulin RatioSeptember 2024 7:20amSeptember 2024 9:24am2.4FSt. [facility] [id number] [address] [facility] 15997Pujjb BilirubinSeptember 2024 7:20amSeptember 2024 9:24am0.6 mg/dL0.3-1.0[facility] [id number] [address] [facility] 64886Cxdlvlfjo Amino Transf (AST/SGOT)November 21, 2024 7:20am November 21, 2024 9:24am27 U/K21-40QpkcrgxtaAvita Health System [facility] [id number] [address] [facility] 91246Ikczfms Aminotransferase (ALT/SGPT)November 21, 2024 7:20am November 21, 2024 9:24am26 U/L7-52[facility] [id number] [address] [facility] 49874Clgrjsid PhosphataseSeptember 2024 7:20amSeptember 2024 9:24am88 U/J60-465WxrlttxhjAvita Health System [facility] [id number] [address] [facility] 33872Ltop LevelSeptember 2024 7:20amSeptember 2024 9:24am 126 ug/aX57-656NswkrrkwoAvita Health System [facility] [id number] [address] [facility] 44864Olryk Iron Binding CapacitySeptember 2024 7:20amSept2024 9:16ec868 ug/nQ752-319NzshlwhekAvita Health System [facility] [id number] [address] [facility] 88158Kkcv SaturationSeptember 2024 7:20amSept2024 9:24am40.8 %20-50[facility] [id number] [address] [facility] 07095KriggkogkymKntudjbxc 2024 7:20amSept2024 9:24am 221 mg/zO272-455AmccdoeauAvita Health System [facility] [id number] [address] [facility] 95869SuuccvvpLtlzqwxzb 2024 7:20amSept2024 9:44am 68.8 ng/mL11.0-306.8[facility] [id number] [address] [facility] 02509Oyfglvjtgwf LevelSeptember 2024 7:20amSept2024 9:30ee150 mg/mN629-252Nmwf less than 200 mg/dl low riskChol 201-239 mg/dl borderline riskChol 240 mg/dl and greater high riskAvita Health System [facility] [id number] [address] [facility] 76894RGN CholesterolSeptember 2024 7:20amSept2024 9:24am57 mg/qR15-10EUY CHOL ATP-III CLASSIFICATION Cardiovascular RiskHDL > or equal to 60 mg/dL LOWHDL < 40 mg/dL HIGHAvita Health System [facility] Hospital Ctr [id number] [address] [facility] 78250Hgoyskheypqif LevelSeptember 2024 7:20amSept2024 9:59af590 mg/dL0-149TRIG ATP III CLASSIFICATIONTRIG less than 150 mg/dL NormalTRIG 150-199 mg/dL Borderline highTRIG 200-500 mg/dL High TRIG greater than 500 mg/dL Very highStandard traceable to the Center for Disease Conrtrol and Prevention (CDC) test method.[facility] [id number] [address] [facility] 15589CWS Cholesterol, CalculatedSeptember 2024 7:20amSept2024 9:24am64 mg/dL0-100LDL ATP III CLASSIFICATIONLDL less than 100 mg/dL OptimalLDL 100-129 mg/dL Near or above accltygQJK678-902 mg/dL Borderline highLDL 160-189 mg/dL HighLDL greater than 189 mg/dL Very highAvita Health System [facility] [id number] [address] [facility] 16208WQLP CholesterolSeptember 2024 7:20amSept2024 9:24am25 mg/dLAvita Health System [facility] Hospital [facility] [id number] [address] [facility] 86696Jeobeqtvfrr/HDL RatioSept2024 7:20amSept2024 9:24am2.6<5.0[facility] [id number] [address] [facility] 5026638-Poczzoi Vitamin D TotalSept2024 7:20amSept2024 9:50am62.3 ng/jI16-593PIQANWQ D STATUS 25(OH)VITAMIN D RANGE (ng/mL) Deficient <20 Insufficient 20 to <30Sufficient 30 to 100Reference: Sarah MF,Ligia NC, Skylar BALDERAS, et al. Evaluation,treatment, and prevention of vitamin D deficiency; an Endocrine Society clinical practice guideline. JCEM. 2010; 96(7):1911-30.[facility] [id number] [address] [facility] 18839Ivmdgkju Creatinine Clearance (ChemSept2024 7:20am November 21, 2024 9:24amN/AFSt. Mary's [facility] [id number] [address] [facility] 18259Ughypkhobo J4sHpnpqwyft 2024 7:20amSept2024 9:49am5.5 %4.3-5.6Increased risk for diabetes: 5.7 - 6.4diabetes: >6.4glycemic control for adults with diabetes: <7.0[facility] [id number] [address] [facility] 47693Rguobrpcq Average GlucoseSeptember 2024 7:20amSept2024 9:41sg390 mg/dLAvita Health System [facility] [id number] [address] [facility] 15094Uyfbicb LevelSeptember 2024 7:20amSeptember 2024 6:07am21.2 u[iU]/mL2.6-24.9Performed at: - [facility] [id number] Director: Jourdan Gonzales PhD, Phone: [phone] [facility] Microbiology Results Procedure Source Result Collection Date/Time Result Date/Time Result Comment Performing Site Blood Culture Blood, Left Antecubital NO GROWTH 5 DAYS November 23, 2024 1:28pm November 28, 2024 1:42pm [facility] [id number] [address] [facility] 16599Vznxn CultureBlood, Right AntecubitalNO GROWTH 5 DAYSSept2024 1:33pmSept2024 1:42pmAvita Health System [facility] [id number] [address] [facility] 86906Uvffk CultureUrineStreptococcus gallolyticusSept2024 8:20amSept2024 8:07amAvita Health System [facility] [id number] [address] [facility] 38561Nnrpr CultureUrine, Clean-Voided MidstreamNo Growth 2 Days December 05, 2024 12:44pmSeptember 2024 9:27amAvita Health System [facility] [id number] [address] [facility] [address] Vital Signs Vital Reading Result Reference Range Collection Date/Time Height 61 [in_i] December 02, 2024 7:46vlYkodlc20.30 kgSept2024 7:08amBody Xhjkdofletc33.6 [degF]97.6-99.0Sept2024 7:08amHeart Rate77 /min 60-100Sept2024 7:08amOxygen saturation by Pulse bfffbelm18 %95-100 December 02, 2024 7:08amBP Mtlrsfmy184 mm[Hg]100-140Sept2024 7:08amBP Mrixwbpjy25 mm[Hg]60-100Sept2024 7:08amBMI (Body Mass Index)29.2 kg/r6Bdrpgrhjr2024 7:42xbOfgubt51 [in_i]January 23, 2025 1:32wwCwqbsx02.13 kgJanuary 23, 2025 1:44pmBody Hwljfnzquia83.2 [degF] 97.6-99.0January 23, 2025 1:44pmHeart Rate72 /sxh52-935UjzbttqzJanuary 23, 2025 2:08pmOxygen saturation by Pulse remoyrnp24 %95-100January 23, 2025 1:44pmBP Kcqvpvrn217 mm[Hg]100-140January 23, 2025 2:08pmBP Hppzfedea46 mm[Hg]60-100 January 23, 2025 2:08pmBMI (Body Mass Index)27.9 kg/f2TzpzkskxJanuary 23, 2025 1:27nrCpwbvm02 [in_i]January 27, 2025 7:10uoTgcjvs71.03 kgJanuary 27, 2025 7:27amHeart Rate63 /hwd56-365SzffdjcpJanuary 27, 2025 10:18amRespiratory rate18 /min 12-24January 27, 2025 10:18amOxygen saturation by Pulse zcwrnmhu318 %95-100 January 27, 2025 10:18amBP Tuwtmjxw005 mm[Hg]100-140January 27, 2025 10:18amBP Zbnwtscju42 mm[Hg]60-100January 27, 2025 10:18am Advance Directives Advance Directive Response Recorded Date/ Time Advance Directives No August 19 7:46am Insurance Providers Guarantor [place] Address [address] [facility] [id number] Info.Home Phone: Payer Group Member ID Coverage Type Subscriber Relationship to Subscriber Effective Date Expiration Date [employer] [facility] Id: [id number] J Dickman Id: [id number] [facility] [address] Home Phone: Email: [email or web address] Encounters Encounter Location(s) Arrival/Admit Date Discharge/Departure Date Discharge/Departure Disposition Provider(s) Departed Clinical -Lab [facility] November 21, 2024 8:16am November 21, 2024 8:17am Discharged to home care or self care (routine discharge) Florentino Mabry DO Non-patient / Non-visit -[facility] November 23, 2024 1:02pm Agustin Angulo Clinical-Lab [facility]2024 1:15pmSept2024 1:16pmDischarged to home care or self care (routine discharge)Keena Angulodes plainesed Physician/Provider Office Visit- [facility] Family Medicine [facility] 2024 8:01amSept2024 8:51amDischarged to home care or self care (routine discharge)Agustin Angulo Clinical-Lab [facility] 2024 12:37pm December 05, 2024 12:38pmDischarged to home care or self care (routine discharge)Keena Angulodes plaineslisha Clinical-ElectrodiagnosticsOctober 2024 7:33amOctober 2024 7:34amDischarged to home care or self care (routine discharge)Killian Angulo-patient / [facility]wa[facility] 2024 6:25amDaviKeena Fernandesdes plainesed Physician/Provider Office Visit-[facility] Family [facility] 2024 1:58pmNov2024 2:51pmDischarged to home care or self care (routine discharge)Killian Angulo-patient / [facility] January 27, 2025 7:01amAmilcar Dalton MD Recent Diagnosis Onset Date Admit Date Anxiety [...] 2024 8:01am UTI (urinary tract infection) Unknown 2024 8:01am Vitamin D deficiency Unknown November 142024 8:01am Weight loss Unknown December 02, 2024 8:01am Hiatal hernia Unknown January 23, 025 1:58pm Hypertension Unknown January 23 025 1:58pm Assessments Author Florentino Mabry [facility] 2024 7:57amThe above note written by ___Iain Kenyon____ acting as human recorder, note dictated by Dr. Simmons .I performed the above HPI, ROS, and Examination. I formulated and dictated the treatment plan and was present for entire encounter. Florentino Mabry D.O. Author Florentino Mabry [facility] 2024 2:56pmThe above note written by ___Iain Kenyon____ acting as human recorder, note dictated by Dr. Simmons .I performed the above HPI, ROS, and Examination. I formulated and dictated the treatment plan and was present for entire encounter. Florentino Mabry D.O. Plan of Treatment Author Iain Kenyon [facility] 2024 7:49amShe did not have any urinary tract infection [...] but should watch her blood pressure closely. Author Iain Kenyon [facility] 2:47pmDue to the swelling she voices that Dr. Hedrick put her on Valsartan. We discussed whether or not she is on Amlodipine, she does not currently believe she is taking this medication and does not have it on her med list. She did contact Dr. Hedrick this morning to let him know she was at the ER yesterday 01/22/25 for evaluation of her blood pressure but has not heard from him. She was told by [facility] that it could be 2-3 days before they would hear from the doctor. She had a headache at the ER and still has a little bit of a headache today. Her daughter voices that she had a headache when her blood pressure spiked and wanted to vomit and her vision was blurry (183/104). Instead of putting her back on Amlodipine we will put her on HCTZ 25 MG daily in the morning. Guidance is given on how to take the medication. She is to monitor her blood pressure on her own and track readings. By next week she needs to have a BMP drawn to check her potassium and kidney studies, call for results. If this medication helps to control her blood pressure we can give her a combined Valsartan with HCTZ in it (Valsartan/HCTZ) we will see. Her troponin was not elevated and her d- dimer was negative on 01/22/25. We discussed that a hiatal hernia was found on diagnostic imaging that was done at the ER 01/22/25. We discussed what a hiatal hernia is and how it affects the body. The CT scan of the abdomen and pelvis that was done on 01/22/25 showed that she had a hiatal hernia with gastric fundus in the lower mediastinum. This would explain why she cannot swallow foods and has a hard time eating. She has a difficult time getting food to go down. She has not had an EGD done. I did recommend she see a catering service manager, but she would like to see Dr. Melgar again because he can do the EGD and can refer her to a specialist for the hiatal hernia. She voices that she did the mail away FOBT test. Future Tests Future scheduled test information is unavailable Pending Tests Test Name Ordered Date Scheduled Date Comprehensive Metabolic Panel December 02 7:21am 6 Months Insulin December 02, 2024 7:21am 6 Mo nths Future Visits Future appointment information is unavailable Future Procedures Procedure Name Ordered Date Scheduled Date Discharge Order January 27, 2025 9:47am Novem jo ann 2024 9:47am A1C with Estimated Average Glu December 02, 2 025 7:21am 6 Months Iron and TIBC Profile December 02, 2024 7:21a m 6 Months Ferritin December 02, 2024 7:21am 6 Mo nths Lipid Panel December 02, 2024 7:21am 6 Mo nths Vitamin D 25 Hydroxy Total December 02, 2024 7:21am 6 Months Basic Metabolic Panel January 23, 2025 2:38pm 1 Weeks Future Medications Future medication information is unavailable Patient Instructions Instruction Admit Date Gastritis - Discharge instru ctions Hiatal hernia - Discharge instructions Know your Jonah 2024 7:01am Hospital Discharge Instructions Additional Instructions DISCHARGE INSTRUCTIONS FOR UPPER ENDOSCOPY WHAT TO EXPECT: - You may feel full, gassy or cramping after your procedure. In some cases, this may be from a few hours to a day. Walking may help relieve the discomfort. - Your throat may feel sore today from the scope that the doctor passed through your throat to visualize your stomach. Take a throat lozenge or suck on ice to ease the discomfort. - You may notice some streaks of blood in your sputum if the doctor has taken a biopsy. - You should begin to recover from anesthesia within 1 hour of the procedure, however may feel groggy for the next 24 hours. DO's AND DON'Ts: - Call your doctor right away if you have a hard abdomen, severe pain, vomiting or if you cough up large amounts of blood. - Call your doctor if you develop any rashes, hives or difficulty breathing. - If you take 81 mg aspirin for your heart it is safe to resume this medication. - If you take other blood thinner medications your doctor will instruct you when these can safely be resumed. - Do NOT drive for 24 hours. - Do NOT operate machinery such as power tools, [employer] mowers, restOpoliswers, sewing machines, etc. for 24 hours. - Avoid alcoholic beverages and drugs for allergies, nerves, or sleep. - Do NOT stay alone. Do NOT leave your child unattended. - Do NOT make important personal or business decisions or sign any legal documents. - Eat solid foods and drink liquids in smaller amounts than usual until normal appetite returns. If you should experience an upset stomach, liquids high in sugar content (soda, Jose David-Aid, non-acid juices) are recommended. - Do NOT smoke. - Do take it easy today. You need not stay in bed, but avoid strenuous activities such as jogging or working out. FOLLOW UP & RECOMMENDATIONS: - Dr. Dalton's office will notify you of your results and any further follow-up or workup that you need. - Notify the doctor if you have any problems. - Follow up with PCP. - Office number [phone].
[2025-02-01] VITALS (20 sets, daily range): BP systolic 132–189; BP diastolic 83–121; PULSE 55–71; TEMP 36.9; O2SAT 89–100; BMI 27.4
--- NOTE | 2025-02-01 19:48 | ECG_ITS ---
The [facility] Test Date: 2025-02-01 Pat Name: ALLISON LAMBERT Department: Room: - Gender: Female Validation Consultant: : 1945 Requested By: [id number] Order Number: [id number] Reading MD: DEBRA DE JESUS M.D. Measurements Intervals [place] Rate: 61 P: 13 [place]: 160 QRS: 22 QRSD: 78 T: 13 QT: 404 QTc: 408 Interpretive Statements [address]-T wave changes Abnormal ECG Compared to ECG 01/22/2025 06:23:[address]-T wave changes are more evident Electronically Signed On 02-02-2025 6:08:33 EST by DEBRA DE JESUS M.D.
--- NOTE | 2025-02-01 19:54 | CT_ITS ---
The [address] [address] Patient Name: ALLISON LAMBERT MRN: [id number] date: 1945 Sex: F Assigned Patient Location: ER Current Patient Location: ED.MAIN Accession/Order Number: [id number] Exam Date: 02/01/2025 20:40 Report Date: 02/01/2025 21:33 At the request of: LIZZETTE MORENO MD Procedure: CT abdomen pelvis w con CT Chest, Abdomen and Pelvis with contrast TECHNIQUE: Axial imaging with 2-D reconstruction. The CT exam was performed using one or more the following dose reduction techniques: Automated exposure control, adjustment of the MA and/or Kv according to patient size, or use of the iterative reconstruction technique. History: Chest pain for 3 days. Upper abdominal pain. COMPARISON: 01/22/2025 THYROID: No significant thyroid abnormality identified. AIRWAY: Central airway is patent. ESOPHAGUS: Esophagus normal course and caliber. Moderate hiatal hernia. HEART: Heart is not enlarged. PERICARDIAL EFFUSION: None CORONARY ARTERY CALCIFICATION: Moderate volume MEDIASTINUM: Nonenlarged mediastinal lymph nodes identified. HILAR REGION: No hilar mass or adenopathy is seen. THORACIC AORTA: No thoracic aortic aneurysm or dissection. Mild atherosclerosis LUNG INTERSTITIUM: No infiltrate or congestion identified. PLEURAL EFFUSION No pleural effusion identified. PNEUMOTHORAX: No pneumothorax seen. LUNG NODULE: No lung nodules identified. CHEST WALL: No chest wall abnormality seen. The bony chest intact. LIVER: No hepatic mass or intrahepatic biliary ductal dilatation is identified. Hepatic steatosis GALLBLADDER: Cholecystectomy BILE DUCTS: Mild common bile duct prominence likely secondary to cholecystectomy. No obstructing stone. SPLEEN: Normal PANCREAS: Unremarkable ADRENAL GLANDS: The adrenal glands are unremarkable. KIDNEYS: Unremarkable ABDOMINAL AORTA: The abdominal aorta is normal. RETROPERITONEUM: No significant retroperitoneal abnormalities identified. STOMACH:Nondistended SMALL BOWEL: The small bowel loops are nondistended. APPENDIX: Nonvisualization. No CT findings of acute appendicitis COLON: There is no colitis or diverticulitis. Large amount stool in proximal colon. Moderate stool in the transverse colon. URINARY BLADDER: Urinary bladder is unremarkable. REPRODUCTIVE STRUCTURES: Hysterectomy FREE AIR: None FREE FLUID: None ABDOMINAL WALL: No subcutaneous soft tissue abnormality identified. INGUINAL HERNIA: None BONES:Thoracic spondylosis. Mild scoliosis. Lumbar spondylosis. CT/CT chest w con IMPRESSION: No acute chest, abdominal or pelvic findings. Moderate hiatal hernia. Constipation. PRELIMINARY RESULTS: None given Impression dictated by: Tee Combs M.D. 02/01/2025 9:33 PM Dictation Location: [place] [address] Electronically authenticated by: [id number] Y Date: 02/01/2025 21:33
--- NOTE | 2025-02-01 19:54 | CT_ITS ---
The [address] [address] Patient Name: ALLISON LAMBERT MRN: [id number] date: 1945 Sex: F Assigned Patient Location: ER Current Patient Location: ED.MAIN Accession/Order Number: [id number] Exam Date: 02/01/2025 20:40 Report Date: 02/01/2025 21:33 At the request of: LIZZETTE MORENO MD Procedure: CT abdomen pelvis w con CT Chest, Abdomen and Pelvis with contrast TECHNIQUE: Axial imaging with 2-D reconstruction. The CT exam was performed using one or more the following dose reduction techniques: Automated exposure control, adjustment of the MA and/or Kv according to patient size, or use of the iterative reconstruction technique. History: Chest pain for 3 days. Upper abdominal pain. COMPARISON: 01/22/2025 THYROID: No significant thyroid abnormality identified. AIRWAY: Central airway is patent. ESOPHAGUS: Esophagus normal course and caliber. Moderate hiatal hernia. HEART: Heart is not enlarged. PERICARDIAL EFFUSION: None CORONARY ARTERY CALCIFICATION: Moderate volume MEDIASTINUM: Nonenlarged mediastinal lymph nodes identified. HILAR REGION: No hilar mass or adenopathy is seen. THORACIC AORTA: No thoracic aortic aneurysm or dissection. Mild atherosclerosis LUNG INTERSTITIUM: No infiltrate or congestion identified. PLEURAL EFFUSION No pleural effusion identified. PNEUMOTHORAX: No pneumothorax seen. LUNG NODULE: No lung nodules identified. CHEST WALL: No chest wall abnormality seen. The bony chest intact. LIVER: No hepatic mass or intrahepatic biliary ductal dilatation is identified. Hepatic steatosis GALLBLADDER: Cholecystectomy BILE DUCTS: Mild common bile duct prominence likely secondary to cholecystectomy. No obstructing stone. SPLEEN: Normal PANCREAS: Unremarkable ADRENAL GLANDS: The adrenal glands are unremarkable. KIDNEYS: Unremarkable ABDOMINAL AORTA: The abdominal aorta is normal. RETROPERITONEUM: No significant retroperitoneal abnormalities identified. STOMACH:Nondistended SMALL BOWEL: The small bowel loops are nondistended. APPENDIX: Nonvisualization. No CT findings of acute appendicitis COLON: There is no colitis or diverticulitis. Large amount stool in proximal colon. Moderate stool in the transverse colon. URINARY BLADDER: Urinary bladder is unremarkable. REPRODUCTIVE STRUCTURES: Hysterectomy FREE AIR: None FREE FLUID: None ABDOMINAL WALL: No subcutaneous soft tissue abnormality identified. INGUINAL HERNIA: None BONES:Thoracic spondylosis. Mild scoliosis. Lumbar spondylosis. CT/CT abdomen pelvis w con IMPRESSION: No acute chest, abdominal or pelvic findings. Moderate hiatal hernia. Constipation. PRELIMINARY RESULTS: None given Impression dictated by: Tee Combs M.D. 02/01/2025 9:33 PM [facility]ictation [facility] Electron[facility] authenticated by: [id number] Y Date: 02/01/2025 21:33
--- NOTE | 2025-02-01 19:56 | ED_ITS ---
HPI - Chest Pain General Chief Complaint: Chest Pain Stated Complaint: chest pain Time Seen by Provider: 02/01/25 19:43 Source: patient Mode of arrival: walk-in Limitations: no limitations History of Present Illness HPI narrative: This 80-year-old female who was seen here several weeks ago for abdominal pain and followed up at [facility] with Dr. Sabillon for endoscopy is brought to emergency department by her daughter for evaluation of ongoing upper abdominal pain that radiates into her chest and into her back. The patient states that the pain is not worse with p.o. intake. She has had some dark stools but has not noticed any blood in her stool. She has recently lost some weight but states she has been trying to lose weight. She is not having any shortness of breath or dizziness. She states she does become diaphoretic every time she stands up and thinks that is because she is so weak. She states her endoscopy was normal but showed a hiatal hernia that she knew she had. She has a history of SVT but otherwise no cardiac disease. She has no lower extremity pain or swelling. She has not had any fever. She denies any nausea vomiting or diarrhea. She states she had her daughter bring her to the emergency department tonight because her pain became severe in the epigastrium wrapping around to her back. Related Data Home Medications ?Medication ?Instructions ?Recorded ?Confirmed amitriptyline 25 mg tablet mg 03/01/24 amlodipine 5 mg tablet mg 03/01/24 clonazepam 0.5 mg tablet mg 03/01/24 duloxetine 30 mg capsule,delayed mg PO 03/01/24 release gabapentin 100 mg capsule mg 03/01/24 gabapentin 400 mg capsule mg 03/01/24 hydroxychloroquine 200 mg tablet mg PO 03/01/24 metoprolol tartrate 50 mg tablet 50 mg PO BID 03/01/24 03/01/24 (Lopressor) omeprazole 40 mg capsule,delayed mg 03/01/24 release simvastatin 20 mg tablet mg 03/01/24 Previous Rx's ?Medication ?Instructions ?Recorded hydrocodone 5 mg-acetaminophen 325 1 tab PO Q8H PRN pa in #12 tabs 03/01/24 mg tablet prednisone 20 mg tablet 40 mg (2 x 20 mg) PO DAILY # 10 tabs 03/01/24 Allergies Allergy/AdvReac Type Severity Reaction Status Date / Time lorazepam (From Ativan) Allergy Mild Hallucinati Verified 02/01/25 19:42 ng amoxicillin Allergy Rash Verified 02/01/25 19:42 Review of Systems ROS Status of ROS 10 or more systems reviewed and unremark able except as noted in history and below PFSH PFSH Social History Little interest or pleasure in doing things: not at all Feeling down, depressed, or hopeless: not at all Exam Narrative Exam Narrative: Vital signs and Nursing Notes reviewed: Patient is afebrile with a normal pulse, blood pressure is elevated at 189/121, she is not hypoxic with pulse ox of 99% on room air General: Awake, alert, oriented, no acute distress, lying comfortably on the stretcher-denies any severe pain at this time HEENT: Normocephalic atraumatic, mucous membranes are moist and pink, eyes are clear, normal conjunctiva, vision is grossly intact Neck: Supple, no meningeal signs, no anterior or posterior cervical lymphadenopathy Chest: Lungs are clear to auscultation with good air entry, there is no wheezing rhonchi or rales appreciated no accessory muscle use, patient is speaking in complete sentences-no chest wall tenderness to palpation CVS: Regular rate and rhythm S1-S2, no murmurs rubs or gallops, pulses are brisk and equal bilaterally ABD: Soft, nondistended, epigastric abdominal tenderness with no rebound guarding or rigidity, no pulsatile masses appreciated, femoral pulses are brisk and equal bilaterally Extremities: Moving all extremities, no lower extremity tenderness or swelling noted, negative Homans' sign, pulses are brisk and equal bilaterally Skin: Normal in appearance without rash,pallor, petechiae or purpura Neuro: No focal deficits Constitutional Vital Signs, click to edit/add: Last Vital Signs Temp 98.5 F 02/01/25 19:42 Pulse 57 L 02/01/25 22:20 Resp 16 02/01/25 22:20 BP 159/96 H 02/01/25 22:01 Pulse Ox 89 L 02/01/25 22:10 O2 Del Method Room Air 02/01/25 19:42 Course Vital Signs Vital signs: Vital Signs Pulse Oximetry 95 02/01/25 19:39 Temperature 98.5 F 02/01/25 19:42 Pulse Rate 57 L 02/01/25 22:20 Respiratory Rate 16 02/01/25 22:20 Blood Pressure 159/96 H 02/01/25 22:01 Pulse Oximetry 89 L 02/01/25 22:10 Oxygen Delivery Method Room Air 02/01/25 19:42 MDM - Chest Pain MDM Narrative Medical decision making narrative: This 80-year-old female presents for evaluation of epigastric abdominal pain that times radiates into her chest and wraps around to her back past 3 days. It became extremely severe today prompting her to ask her daughter to bring her to the emergency department. She was recently been seen here for similar pain and diagnosed with peptic ulcer disease/gastritis and referred to gastroenterology. She underwent endoscopy recently with no acute findings but it did show hiatal hernia which she was aware that she had. Her vital signs are stable. EKG is normal sinus rhythm. Cardiac workup was ordered. WBC is mildly elevated at 13.5 with a stable hemoglobin. Electrolytes are normal. Troponin is normal. D-dimer is minimally elevated at 0.65- negative when corrected for her age. Liver function tests and lipase are normal. Scan of the chest abdomen pelvis was ordered to evaluate the patient's aorta, pancreas and pathology causing her ongoing pain. CT scan of the chest does not show any acute findings and CT scan of the abdomen pelvis shows constipation and a moderate hiatal hernia. The results of the CT scan were discussed with the patient. She was medicated emergency department with IV fluids, 324 mg aspirin for her chest pain complaint and Pepcid. She was also given morphine with clinical improvement. On reevaluation she states she is still having some degree of back pain and was given a dose of Aguila and additional Zofran. Return admission but she declined stating she will follow-up with cardiology and her family physician. I explained that she may have worsening of her hiatal hernia symptoms in light of her constipation. Patient will be discharged home on Protonix and Colace. I recommended that she follow-up with her family physician and cardiology. Medical Records Data Attestation: I reviewed the patient's medical records. Lab Data Attestation: I reviewed the patient's lab results. Labs: Lab Results 02/01/25 Range/Units 19:50 WBC 13.5 H (4.0-11.0) 10^3/uL RBC 5.15 (4.20-5.40) 10^6/uL Hgb 15.0 (12.0-16.0) g/dL Hct 43.3 (36.0-48.0) % MCV 84.1 (81.0-99.0) fL MCH 29.1 (26.7-34.0) pg MCHC 34.6 (29.9-35.2) g/dL RDW 12.1 (11.0-15.0) % Plt Count 348 (150-450) 10^3/uL MPV 9.7 (9.5-13.5) fL Seg Neuts % (Manual) 58.0 (43.0-75.0) Lymphocytes % (Manual) 26.0 (20.5-60.0) % Monocytes % (Manual) 16.0 H (1.7-12.0) % Eosinophils % (Manual) 0.0 L (0.9-7.0) % Basophils % (Manual) 0.0 L (0.2-2.0) % Neutrophils # (Manual) 7.83 H (1.4-6.5) 10^3/uL Lymphocytes # (Manual) 3.51 (1.20-3.80) 10^3/uL Monocytes # (Manual) 2.16 H (0.30-0.80) 10^3/uL Eosinophils # (Manual) 0.00 (0.00-0.70) 10^3/uL Basophils # (Manual) 0.00 (0.00-0.10) 10^3/uL D-Dimer 0.65 H* (<=0.59) mg/L FEU Sodium 132 L (136-145) mmol/L Potassium 4.2 (3.5-5.1) mmol/L Chloride 93 L (98-107) mmol/L Carbon Dioxide 32.2 H (21.0-32.0) mmol/L Anion Gap 11.0 BUN 14.0 (7.0-18.0) mg/dL Creatinine 1.04 H (0.55-1.02) mg/dL Est GFR ( Amer) >60 (>=60 mL/min/1.73m^2) Est GFR (Non-Af Amer) 51 L (>=60 mL/min/1.73m^2) BUN/Creatinine Ratio 13.5 Glucose 112 H (74-106) mg/dL Calcium 9.9 (8.5-10.1) mg/dL Total Bilirubin 0.4 (0.2-1.0) mg/dL AST 28 (15-37) U/L ALT 40 (14-59) U/L Alkaline Phosphatase 94 (46-116) U/L Troponin I High Sens 5.0 (4.0-51.3) pg/mL Total Protein 7.1 (6.4-8.2) g/dL Albumin 4.2 (3.4-5.0) g/dL Globulin 2.9 g/dL Albumin/Globulin Ratio 1.4 Lipase 66.0 (16.0-77.0) U/L Imaging Data CT scan - abdomen: Radiologist's impression: ITS Impressions Abdomen/Pelvis CT 02/01/25 19:54 IMPRESSION: No acute chest, abdominal or pelvic findings. Moderate hiatal hernia. Constipation. PRELIMINARY RESULTS: None given Impression dictated by: Tee Combs M.D. 02/01/2025 9:33 PM Dictation Location: [place] Electronically authenticated by: [id number] Y Date: 02/01/2025 21:[address] 02/01/25 19:54 IMPRESSION: No acute chest, abdominal or pelvic findings. Moderate hiatal hernia. Constipation. PRELIMINARY RESULTS: None given Impression dictated by: Tee Combs M.D. 02/01/2025 9:33 PM Dictation Location: [place] Electronically authenticated by: [id number] Y Date: 02/01/2025 21:33 ECG Data Attestation: I personally reviewed and interpreted this ECG as follows: (Sinus rhythm at 60 bpm, normal axis, normal intervals, no acute ST segment elevation or T wave inversion) Heart Score History: Slightly/Non-Suspicious ECG: Normal Age: >65 years Risk Factors: 1 or 2 Risk Factors Troponin: <Normal Limit Total Heart Score Recommendations & Risks:: 3 Discharge Plan Discharge Chief Complaint: Chest Pain Clinical Impression: Hernia, hiatal, Chest pain, Constipation, unspecified Patient Disposition: Home, Self-Care Time of Disposition Decision: 22:06 Condition: Good Prescriptions / Home Meds: No Action clonazepam 0.5 mg tablet gabapentin 400 mg capsule amlodipine 5 mg tablet omeprazole 40 mg capsule,delayed release(DR/EC) amitriptyline 25 mg tablet simvastatin 20 mg tablet gabapentin 100 mg capsule hydroxychloroquine 200 mg tablet PO duloxetine 30 mg capsule,delayed release(DR/EC) PO metoprolol tartrate [Lopressor] 50 mg tablet 50 mg PO BID hydrocodone-acetaminophen 5-325 mg tablet 1 tab PO Q8H PRN (Reason: pain) Qty: 12 0RF prednisone 20 mg tablet 40 mg PO DAILY Qty: 10 0RF Print Language: Slovak Instructions: Chest Pain (ED), Hiatal Hernia (ED), Constipation (DC), Acute Abdominal Pain (ED), Thoracic Pain (ED) Referrals: MAYCO VELASQUEZ [Primary Care Provider, [facility]] - 1 week Discharge Date/Time: 02/01/25 22:33
--- OUTSIDE RECORDS SUMMARY | 2025-02-01 20:11 | XMS_ITS | Continuity of Care Document ---
Author Organization [facility] Address [address] [place] [id number] Phone [phone] Care Team Providers Care Adult Remedial Education Instructor Name Role Phone ElaineFlorentino lopez Eleanor ANTHONY Care Team Information Receive r [phone] Results Test Acquired Date Facility Test Result H/L Range [place] .Renal Panel 08/02/2018 [facility] [phone].Calcium9.7.Carbon Kmxnwrn11.Lsaxmujs68.Creatinine-LC0.7.Opmevc733 .BUN11.GFR-LC>81Xlxf87.Potassium4.0 Assessments Date Code Description Provider 07/12/2018 E87.1 [...]
--- OUTSIDE RECORDS SUMMARY | 2025-02-01 20:11 | XMS_ITS | CCD ---
Author Organization [facility] Care Team Providers Care Electronic Coils Supervisor Name Role Phone VAIBHAV CABRERA Referring Unavailab MAYCO Galloway Primary Care Unavailable VAIBHAV CABRERA Referring Unavailab MAYCO Galloway Primary Care Unavailable Mayco Velasquez Primary Care Physician [phone] Alida Jackson Unavailable Unavailable Aylin Campoverde Unavailable Unavailable Allegra Hong Unavailable Unavailable Mayco Velasquez Unavailable Mayco Velasquez Unavailable Unavailable Unavailable DO Mayco Velasquez Primary Care Provider Self, Referral Attending Provider Unavailable DO Mayco Velasquez Primary Care Provider DO Mayco Velasquez Attending Provider [phone] Unavailable Unavailable Ryley, Dr. Deb Merrill Attending Lenore vailable Ryley, Dr. Deb Merrill Referring Lenore vailable Clotilde, Dr. Mayco Phelps Primary Care Unavaila ble DO Mayco Velasquez Primary Care Provider [phone] Self, Referral Attending Provider Unavailable Mayco Velasquez Attending Unavailable Mayco Velasquez Admitting Unavailable ALEX RIVAS Consulting Unavailable Mayco Velasquez Attending Unavailable Mayco Velasquez Admitting Unavailable DO ALEX RIVAS Consulting Unavailable Mayco Velasquez Admitting Unavailable Mayco Velasquez Attending Unavailable DO Mayco Velasquez Primary Care Provider [phone] DO Mayco Velasquez Attending Provider Mayco Velasquez DO Primary Care Provider DO Mayco Velasquez Primary Care Provider DO Mayco Velasquez Attending Provider DO Mayco Velasquez Primary Care Provider MD Dbe Zamora Attending Provider Self, Referral Attending Provider Unavailable DO Mayco Velasquez Attending Provider MAYCO VELASQUEZ Primary Care Unavailable SARBJIT ANDREA Referring Unavailable Mayco Velasquez DO Primary Care Provider Mayco Velasquez MD Primary Care Provider [phone] Aydee ANTHONY Bharath Lima Unavailable Anushka Helms DO Unavailable Mayco Velasquez DO Primary Care Provider [phone] Mayco Velasquez DO Attending Provider MEJIA MERAZ Attending Unavailable MEJIA MERAZ Admitting Unavailable MAYCO VELASQUEZ Primary Care Unavailable Mayco Velasquez DO Primary Care Provider Mayco Velasquez DO Attending Provider MAYCO VELASQUEZ Primary Care Unavailable SELF Referring [...] Attending Unavailable MAYCO VELASQUEZ Primary Care Unavailable SHANE, BRISA S Referring Unavailable MAYCO VELASQUEZ Primary Care Unavailable MEJIA JOHN Attending Unavailable MAYCO VELASQUEZ Primary Care Unavailable Mayco Velasquez DO Primary Care Provider [phone] Mayco Velasquez DO Attending Provider Jenaro Max DO Emergency Provider Unavai Mayco Phipps DO Primary Care Provider Mayco Velasquez DO Primary Care Provider [phone] Mayco Velasquez DO Attending Provider Self, Referral Attending Provider Unavailable Mayco Velasquez DO Primary Care Provider Mayco Velasquez DO Attending Provider Mayco Velasquez MD Primary Care Provider Mayco Velasquez Admitting Unavailable Clotilde, Mayco Primary Care Unavailable Mayco Velasquez Attending Unavailable Clotilde, Mayco Primary Care Unavailable Girjessica, Mayco Attending Unavailable Girjessica, Mayco Admitting Unavailable Girjessica, Mayco Primary Care Unavailable Girjessica, Mayco Attending Unavailable Girjessica, Mayco Admitting Unavailable Girjessica, Mayco Primary Care Unavailable Girjessica, Mayco Attending Unavailable Girjessica, Mayco Admitting Unavailable Girjessica, Mayco Primary Care Unavailable Self, Referral Admitting Unavailable Self, Referral Attending Unavailable Clotilde, Mayco Attending Unavailable Clotilde, Mayco Admitting Unavailable Girjessica, Mayco Primary Care Unavailable Girjessica, Mayco Attending Unavailable Clotilde, Mayco Admitting Unavailable Girjessica, Mayco Primary Care Unavailable Clotilde, Mayco Attending Unavailable Clotilde, Mayco Admitting Unavailable Girjessica, Mayco Primary Care Unavailable Girjessica, Mayco Primary Care Unavailable Jenaro Max Admitting Unavailable Jenaro Max Attending Unavailable DEB ZAMORA Attending Unavailable DEB ZAMORA Referring Unavailable MAYCO VELASQUEZ Primary Care Unavailable Mayco Velasquez DO Primary Care Provider Mayco Velasquez DO Attending Provider [phone] CARLITA PATINO Attending Unavailable MAYCO VELASQUEZ Referring Unavailable SHA SETHI Attending Unavailable VAIBHAV CABRERA Referring Unavailable VAIBHAV CABRERA Referring Unavailable VAIBHAV CABRERA Attending Unavailable Allergies Allergy ClassificationReported Allergen(s)Allergy TypeDate of OnsetReaction(s) Facility (16 sources)LORazepam; Translations: [lorazepam]Drug Gvgxjci07-71-0311grfiukg drowsiness, [facility] (9 sources)LorazepamAllergy to podicmijf13-55-8724AIVJ [email or web address] Work Phone: (1 source)LORazepamDrug [id number] Clinic Foundation Repository Medications Current Medications MedicationDrug Class(es)DatesSig (Normalized)Sig (Original)acetaminophen 325 mg / HYDROcodone bitartrate 5 mg oral tablet (20 sources)Opioid AgonistStart: 43-17-0047bmpy 1 tablet by mouth every eight hours as neededHYDROcodone-acetaminophen ([place]) 5-325 MG tablet Take 1 tablet by mouth every 8 (eight) hours if needed 03/02/2024 ActiveStart: 03-01-2024 End: 85-09-8948fuci 1 tablet by mouth every six hours as needed for pain Hydrocodone-Acetaminophen 5-325 mg tablet Discontinued 1 TAB PO Every 6 hours as needed for pain 287 0 March 02, 2024 August 31, 2024 8:44am Left knee pain Pain in left kneeStart: 10-20-2023 End: 80-45-5772ksza 1 tablet by mouth every six hours as needed for pain Hydrocodone-Acetaminophen 5-325 mg tablet Discontinued 1 TAB PO Every 6 hours as needed for pain 287 0 November 06, 2023 December 03, 2023 7:15am Degeneration of intervertebral disc of lumbar region Other intervertebral disc degeneration, lumbar regionStart: 32-14-8331wopn 1 tablet by mouth four times dailyNorco 5/325 Tab 1 tab(s), Oral, QID Pain - Moderate, Refill(s) 0 Start Date: 02/28/19 Status: OrderedStart: 43-85-1964wkup 1 tablet by mouth four times dailyNorco 5/325 Tab 1 tab(s), Oral, QID Pain - Moderate, Refill(s) 0 Start Date: 02/28/19 Status: OrderedStart: 03-17-2017 End: 63-44-8672jxds 1 tablet by mouth every six hours as needed for pain Hydrocodone-Acetaminophen 5-325 mg tablet Discontinued 1 TAB PO Q6H as needed for Pain March 12:00am May 13, 2023 8:18amacetaminophen 325 mg / oxyCODONE hydrochloride 5 mg oral tablet (7 sources)Opioid AgonistStart: 05-20-2024 End: 71-35-6107vfkp 1 tablet by mouth every eight hours as neededoxyCODONE- acetaminophen (PERCOCET) 5-325 mg tablet Indications: Carpal tunnel syndrome of left wrist Take 1 tablet by mouth every 8 hours as needed for up to 10 doses. 10 tablet 05/20/2024 5ActiveStart: 13-74-7406Fysmfgjf 325 mg-5 mg Tab See Instructions, 50 tab(s), Refill(s) 0, 1- 2 tab(s) Oral q4hr PRN pain. Duration 7 days, [facility] #[id number] Start Date: 02/26/19 Status: OrderedStart: 26-83-4598Sydkdvgx 325 mg-5 mg Tab See Instructions, 50 tab(s), Refill(s) 0, 1- 2 tab(s) Oral q4hr PRN pain. Duration 7 days, [facility] #[id number] Start Date: 02/26/19 Status: Orderedamitriptyline hydrochloride 25 mg oral tablet (20 sources)Tricyclic AntidepressantStart: 03-02-2015 End: 43-95-7883mmwqqejdxxwig (Elavil) 25 MG tablet Indications: Migraine without aura and without status migrainosus, not intractable TAKE 1 TABLET AT BEDTIME 90 tablet 1 05/09/2024 Activeascorbic acid 500 mg oral tablet (20 sources)Vitamin CStart: 48-92-6277fwfg 1 tablet by mouth once dailyAscorbic Acid (Vitamin C) (Vitamin C) 500 mg Tablet Active 500 MG PO Daily January 03, 2019 11:00pm Complies with drug therapyAscorbic Acid (VITAMIN C PO) Activetake 1 tablet [...] Orally daily ActiveB Complex 100 (6 sources)Start: 16-88-6657psla 1 tablet by mouth once dailyB Complex 100 1 tab, Oral, Daily, Refill(s) 0, Prophylaxis Start Date: 03/02/15 Status: Orderedb complex vitamins (Vitamins B Complex) capsule (2 sources)take 1 capsule by mouth once dailyb complex vitamins (Vitamins B Complex) capsule Take 1 capsule by mouth once daily. ActiveBMP (6 sources)Start: 31-05-7835LGQ BMP, BMP on 07/19/18., Print Requisition, Supply Start Date: 07/12/18 Status: OrderedCALCIUM CITRATE-VITAMIN D3 ORAL (2 sources)take 1 tablet by mouth once dailyCALCIUM CITRATE-VITAMIN D3 ORAL Take 1 tablet by mouth once daily. Activecholecalciferol 0.125 mg oral tablet (20 sources)Vitamin DStart: 98-95-7319plzu 1 tablet by mouth once daily Cholecalciferol (Vitamin D3) (Vitamin D3) 5,000 unit Tablet Active 5000 UNIT PO Daily December 11:00pm Complies with drug therapytake 1 capsule by mouth once dailycholecalciferol (Vitamin D-3) 25 MCG (1000 UT) capsule Take 1 capsule (25 mcg) by mouth once daily.Activetake 1 tablet by mouth once daily cholecalciferol (VITAMIN D) 1,000 unit tab tablet Take 1,000 Units by mouth once daily. ActiveVitamin D 1000 UNIT CAPS TAKE 1 CAPSULE Daily Quantity: 0 Refills: 0 Ordered: 23-Sep-2021 DO ActiveCoenzyme Q10 (COQ-10 PO) (9 sources)Coenzyme Q10 (COQ-10 PO) ActiveCoenzyme Q10 (COQ-10 PO) CoQ-10 Active Cymbalta 30 mg Cap-DR (3 sources)Start: 91-03-5580vxnl 1 capsule by mouth once dailyCymbalta 30 mg Cap-DR 30 mg, Oral, Daily, Refills(s) 0, Depression Start Date: 03/02/15 Status: Ordereddocusate sodium 100 mg oral capsule (6 sources)Start: 92-39-8578yhku 1 capsule by mouth twice daily as needed for constipationColace 100 mg Cap 100 mg = 1 cap(s), Oral, BID, prn constipation, # 20 cap(s), Refills(s) 0, Pharmacy: [facility] #[id number] Start Date: 02/26/19 Status: Ordereddoxycycline hyclate 100 mg oral tablet (1 source)Tetracycline-class DrugStart: 05-20-2024 End: 63-34-5964byrh 1 tablet by mouth twice dailydoxycycline (VIBRA-TABS) 100 mg tablet Take 1 tablet by mouth two times a day for 7 days. 14 gqmhwr5105/20/2024 05/27/2024 ActiveDULoxetine 30 mg delayed release oral capsule (20 sources)Serotonin and Norepinephrine Reuptake InhibitorStart: 27-52-8928ccrg 1 capsule by mouth twice dailyDuloxetine 30 mg capsule,delayed release(DR/EC) Active 30 MG PO Twice daily December 02, 2024 7:23am Complies with drug therapyStart: 10-21-2024 End: 97-43-8826Yzyxedbxpi 30 mg capsule,delayed release(DR/EC) Discontinued 0 .ROUTE .COMPLEX 180 3 October 21, 2024 7:21am December 02, 2024 7:24am TAKE 1 CAPSULE TWICE DAILYStart: 10-29-2023 End: 22-25-5021nmte 1 capsule by mouth twice dailyDuloxetine 30 mg capsule,delayed release(DR/EC) Discontinued 30 MG PO Twice daily 30 15 0 October 29, 2023 9:52am October 21, 2024 7:21amStart: 03-02-2015 End: 40-53-4021xlqu 1 capsule by mouth once dailyDuloxetine 30 mg Capsule,Delayed Release(Dr/Ec) Discontinued 30 MG PO Daily March 17, 2017 12:00am October 29, 2023 8:17amferrous sulfate 325 mg oral tablet (20 sources)Start: 65-84-3695nfcc 1 tablet by mouth every weekFerrous Sulfate (Iron) 325 mg (65 mg iron) tablet Active 325 MG PO .once weekly December 03, 2023 7:48am Complies with drug therapyStart: 12-03-2023 End: 51-03-2366Rhpgpcq Sulfate (Iron) 325 mg (65 mg iron) tablet Discontinued 65 MG PO .COMPLEX December 03, 2023 7:24am December 03, 2023 7:50am 65 mg orally 1 tablet by mouth Thursday and Thu and Thu;Start: 12-03-2023 End: 23-91-2347Hzmgrnb Sulfate (Iron) 325 mg (65 mg iron) tablet Discontinued 65 MG PO .COMPLEX December 03, 2023 8:24am December 03, 2023 8:50am 65 mg orally 1 tablet by mouth Thursday and Thu and Thu;Start: 12-03-2023 End: 91-96-2264Uathbof Sulfate (Iron) 325 mg (65 mg iron) tablet Discontinued 65 MG PO .COMPLEX December 03, 2023 7:14am December 03, 2023 7:24am 1 tablet by mouth Thursday and Thu and ThuStart: 12-03-2023 End: 66-76-4376Wphcsow Sulfate (Iron) 325 mg (65 mg iron) tablet Discontinued 65 MG PO .COMPLEX December 03, 2023 8:14am December 03, 2023 8:24am 1 tablet by mouth Thursday and Thu and ThuStart: 08-20-2023 End: 23-51-3985Vlrarvu Sulfate (Iron) 325 mg (65 mg iron) tablet Discontinued 65 MG PO .COMPLEX August 20, 2023 7:12am December 03, 2023 7:16am 1 tablet by mouth Thursday and ThuStart: 08-20-2023 End: 88-63-8070Uncujxv Sulfate (Iron) 325 mg (65 mg iron) tablet Discontinued 65 MG PO .COMPLEX August 20, 2023 8:12am December 03, 2023 8:16am 1 tablet by mouth Thursday and ThuStart: 43-30-5694Dsmzcqb Sulfate (Iron) 325 mg (65 mg iron) tablet Active 65 MG PO .COMPLEX August 20, 2023 8:12am 1 tablet by mouth Thursday and ThuStart: 07-99-4581Onlozad Sulfate 325 (65 Fe) MG 1 tablet Orally three days a week Apr, ActiveStart: 21-10-1194Psbvfpm Sulfate 325 (65 Fe) MG 1 tablet Orally three days a week Apr, ActiveStart: 21-59-2217nkfr 1 tablet by mouth every weekFerrous Sulfate 325 (65 Fe) MG 1 tablet Orally once a week Apr, Not-TakingStart: 01-04-2019 End: 23-95-1280Klrhrgp Sulfate (Iron) 325 mg (65 mg iron) tablet Discontinued 65 MG PO .COMPLEX December 03, 2023 7:24am December 03, 2023 7:50am 65 mg orally 1 tablet by mouth Thursday and Thu and Thu;take 1 tablet by mouth three times weeklyferrous sulfate 325 mg (65 mg iron) tablet Take 325 mg by mouth. Three times weekly Activegabapentin 400 mg oral capsule (20 sources)Anti-epileptic AgentStart: 08-18-2023 End: 66-01-1066qeiitxnhdh (Neurontin) 400 MG capsule Indications: Paresthesia of skin TAKE 1 CAPSULE IN THE MORNING AND BEFORE BEDTIME 60 capsule 2 07/20/2024 ActiveStart: 05-13-2023 End: 40-43-9990pcnurmlhlw (Neurontin) 100 MG capsule Indications: Paresthesia of skin TAKE 1 CAPSULE EVERY MORNINGAND 2 CAPSULES AT BEDTIME, TAKE WITH THE 400MG TABLET 90 capsule 2 04/18/2024 ActiveStart: 09-12-2021 End: 56-47-0455lqgk 1 capsule by mouth in the morninggabapentin [...] 600 mg in pm ActiveGabapentin Dr. Rivas ActivehydroCHLOROthiazide 25 mg oral tablet (3 sources)Thiazide DiureticStart: 94-92-6291ghpdjBUNCDObhasrkfp (HYDRODiuril) 25 MG tablet Every morning 01/23/2025 Activehydroxychloroquine sulfate 200 mg oral tablet (20 sources)Antimalarial, Antirheumatic AgentStart: 82-24-1307tpya 1 tablet by mouth twice dailyHydroxychloroquine (Plaquenil) 200 mg tablet Active 200 MG PO Twice daily January 23, 2025 12:00am Complies with drug therapyStart: 08-17-2023 End: 53-72-6564apekTNZlpzrfzPWWOX (PLAQUENIL) 200 mg tablet Indications: Primary osteoarthritis involving multiplejoints TAKE 2 TABLETS ONCE DAILY 180 tablet 1 11/30/2023 ActiveStart: 09-12-2021 End: 18-83-7138aqzs 1 tablet by mouth twice dailyHydroxychloroquine 200 mg tablet Discontinued 200 MG PO Twice daily 60 30 3 August 31, 2024 9:26am S deysi 2024 7:14amtake 1 tablet by mouth once dailyhydroxychloroquine (Plaquenil) 200 MG tablet Take 200 mg by mouth Daily Activeindomethacin 25 mg oral capsule (12 sources)Nonsteroidal Anti-inflammatory Drug End: 27-45-2991olzq 1 capsule by mouth in the morningindomethacin (Indocin) 25 MG capsule Take 25 mg by mouth in the morning. ActiveIron (6 sources)Start: 44-96-0457zzyz 1 tablet by mouth every other dayiron 65 mg iron 65 mg, 1 tab, Oral, Every other day Start Date: 01/31/19 Status: Ordered ivermectin 3 mg oral tablet (5 sources)Antiparasitic, Pediculicidetake 5 tablets by mouth two times weekly Ivermectin 3 MG as directed Orally 5 tabs twice a week Activelidocaine 0.05 mg/mg medicated patch (9 sources)Antiarrhythmic, Amide Local AnestheticStart: 33-13-1452tdinb 1 dose transdermal route every twelve hourslidocaine (Lidoderm) 5 % patch Indications: Chronic left-sided low back pain with left-sided sciatica Apply 1 patch over 12 hours topically Daily Apply for 12 hours daily 30 patch 2 11/03/2023 Active magnesium oxide 400 mg oral tablet (11 sources)take 1 tablet by mouth in the morningmagnesium oxide (Mag-Ox) 400 MG tablet Take 400 mg by mouth in the morning. Activemeclizine hydrochloride 25 mg oral tablet (2 sources)AntiemeticStart: 09-12-2021 End: 44-22-1463jloz 1 tablet by mouth every eight hours as needed for dizziness meclizine 25 mg Tab 25 mg = 1 tab(s), Oral, q8hr, PRN Dizziness, X 7 day(s), # 20 tab(s), Refills(s) 0, Pharmacy: [facility] #[id number], 154, cm, 09/12/21 13:36:00 EDT, Height/Length Dosing, 76.6, kg, 09/12/21 13:36:00 EDT, Weight Dosing Start Date: 09/12/21 Stop Date: 09/19/21 Status: Orderedtake 1 tablet by mouth once dailyMeclizine HCl - 25 MG Oral Tablet Take 1 tablet daily Quantity: 0 Refills: 0 Ordered: 23-Sep-2021 DO Activemeloxicam 15 mg oral tablet (20 sources)Nonsteroidal Anti-inflammatory DrugStart: 80-69-9587kymy 1 tablet by mouth once dailyMeloxicam 15 mg tablet Active 0 .ROUTE .COMPLEX 90 January 16, 2025 9:09am Take 1 tablet by mouth once daily Complies with drug therapy Start: 06-21-2024 End: 58-57-2611Hpyuxoihj 15 mg tablet Discontinued 0 .ROUTE .COMPLEX 90 0 October 21, 2024 7:21am December 02, 2024 7:24am TAKE 1 TABLET DAILYStart: 03-17-2017 End: 82-18-5249wcvu 1 tablet by mouth once dailymeloxicam (Mobic) 15 MG tablet Take 15 mg by mouth Daily 12/29/2022 Activemetoprolol tartrate 50 mg oral tablet (20 sources)beta-Adrenergic BlockerStart: 07-03-2018 End: 25-37-3248nyjn 1 tablet by mouth twice dailymetoprolol tartrate (Lopressor) 50 mg tablet Indications: Essential hypertension Take 1 tablet by mouth 2 times a day. 180 tablet 3 09/21/2024 09/21/2025 ActiveStart: 35-47-6624skdy 1 tablet by mouth twice dailyMetoprolol Succinate 50 mg Tablet Extended Release 24 Hr Active 50 MG PO Twice daily March 17, 2017 12:00am Complies with drug therapy take 1 tablet by mouth every twelve hoursmetoprolol tartrate (Lopressor) 50 MG tablet Take 50 mg by mouth every 12 (twelve) hours ActiveMetoprolol Tartrate 50 mg TAKE 1 TABLET TWICE A DAY WITH FOOD ActiveMulti Vitamin Daily (20 sources)Multi Vitamin Daily Not-TakingMulti Vitamin Daily ActiveMultivitamin preparation (10 sources)Start: 34-35-1681sksl 1 tablet by mouth once dailyMultivitamin Active 1 TAB PO Daily January 03, 2019 11:00pmStart: 93-51-4106ecew 1 tablet by mouth once dailyMultivitamin Active 1 TAB PO Daily January 04, 2019 12:00am Multivitamin Tablet (12 sources)Start: 18-34-7364dcbb 1 tablet by mouth once dailyMultivitamin Tablet Active 1 TAB PO Daily January 03, 2019 11:00pm Complies with drug therapyStart: 20-10-5265gmdd 1 tablet by mouth once dailyMultivitamin Tablet Active 1 TAB PO Daily January 04, 2019 12:00am Complies with drug therapy Start: 88-94-1530pnqp 1 tablet by mouth once dailyStart: 69-92-8975hmde 1 tablet by mouth once dailyMultivitamin Tablet Active 1 TAB PO Daily January 04, 2019 12:00amStart: 03-93-9289cwyt 1 tablet by mouth once dailyMultivitamin Tablet Active 1 TAB PO Daily January 03, 2019 11:00pmMultivitamins and Minerals (6 sources)Start: 78-49-6793djog 1 tablet by mouth once dailyMultivitamins and Minerals 1 tab, Oral, Daily, Refill(s) 0, Prophylaxis Start Date: 03/02/15 Status: OrderedOmega 3 (20 sources)[place] 3 Not-TakingOmega 3 Activeomega-3/dha/epa/dpa/fish oil (OMEGA- 3 2100 ORAL) (20 sources)omega-3/dha/epa/dpa/fish oil (OMEGA-3 2099 ORAL) Take by mouth once daily. Activeomega-3/dha/epa/dpa/fish oil (OMEGA-3 2099 ORAL) Take by mouth once daily. 0 Activeomeprazole 40 mg delayed release oral capsule (20 sources)Proton Pump InhibitorStart: 12-13-2022 End: 01-19-0329txpc 1 capsule by mouth before mealtimeomeprazole (PriLOSEC) [address] capsule Take 40 mg by mouth in the morning. Take before meals. 12/13/2022 ActiveStart: 03-17-2017 End: 69-53-4331vtgs 1 capsule by mouth once dailyOmeprazole 40 mg Capsule,Delayed Release(Dr/Ec) Discontinued 40 MG PO Daily March 17, 2017 12:00am August 20, 2023 7:17amStart: 47-77-8777wmeo 1 capsule by mouth once daily omeprazole 20 mg Cap-DR = 1 cap(s), Oral, Daily, # 30 cap(s), Refills(s) 0, Control of stomach acidStart Date: 12/26/15 Status: Orderedomeprazole 20 mg Cap-DR (2 sources)Start: 27-29-9212xzvg 1 capsule by mouth once dailyomeprazole 20 mg Cap-DR = 1 cap(s), Oral, Daily, # 30 cap(s), Refills(s) 0, Control of stomach acidStart Date: 12/26/15 Status: OrderedpredniSONE 20 mg oral tablet (20 sources)Start: 44-55-3291mfbqyiNVHB (Deltasone) 20 MG tablet 03/02/2024 ActiveStart: 96-26-6254inbs 2 tablets by mouth once dailypredniSONE (Deltasone) 20 MG tablet TAKE 2 TABLETS BY MOUTH ONCE DAILY 03/02/2024 ActiveStart: 10-22-2023 End: 94-68-0246ahqf 3 tablets by mouth once daily at mealtime, then take 2 tablets by mouth once daily, then take 1 tablet by mouth once daily at mealtime Prednisone 20 mg tablet Discontinued 0 PO .with food or milk October 21, 2023 11:00pm December 03, 2023 7:15am take 3 tablets a day x3 days, 2 tabs a day x3 days and then 1 tab a day x3 days orally WITH FOOD OR MILK;Start: 10-22-2023 End: 48-19-4089nfjb 3 tablets by mouth once daily at [...] hydrochloride 25 mg oral tablet (6 sources)PhenothiazineStart: 58-31-7844wfmv 1 tablet by mouth every four hours as needed for nauseapromethazine 25 mg Tab 25 mg = 1 tab(s), Oral, q4hr, PRN for nausea/vomiting, # 10 tab(s), Refills(s) 0, Pharmacy: [facility] #[id number] Start Date: 02/26/19 Status: OrderedPULMONARY FUNCTION TEST (6 sources)Start: 67-53-7509NAPZDDEUD FUNCTION TEST PULMONARY FUNCTION TEST, Pulmonary function test on 07/26/18., Print Requisition, Supply Start Date: 07/12/18 Status: Orderedrizatriptan 10 mg oral tablet (1 source)Serotonin-1b and Serotonin-1d Receptor AgonistStart: 28-69-1155bliv 1 tablet by mouth every two hoursRizatriptan (Maxalt) 10 mg tablet Active 0 PO .COMPLEX 6 January 16, 2025 12:00am take 1 tab atonset of headache; if no relief may repeat 1 tab after at least 2 hrs; max = 2 tabs/24 hr PO Complies with drug therapysimvastatin 20 mg oral tablet (20 sources)HMG-CoA Reductase InhibitorStart: 10-28-2009 End: 00-55-5613pmsx 1 tablet by mouth at bedtimesimvastatin (Zocor) 20 MG tablet Take 20 mg by mouth at bedtime 12/13/2022 ActiveSimvastatin 20 mg TAKE 1 TABLET DAILY IN THE EVENING Activesodium 1gram tabs (6 sources)Start: 23-08-8362vlvp 1 tablet by mouth twice dailysodium 1gram tabs sodium 1gram tabs, 1 tab, Oral, BID Start Date: 01/31/19 Status: Orderedsodium chloride 1000 mg oral tablet (20 sources)Start: 05-13-2023 End: 88-86-2000drxu 1 tablet by mouth twice dailyStart: 23-06-8258nslc 1 tablet by mouth twice dailySodium Chloride Active 1 TAB PO Twice daily May 13, 2023 1:00am FreeTextSi tablet OrallyTwice a day; Note: Source Status: Taking; Provider: Clotilde Reyez 1 tablet by mouth twice dailySodium Chloride 1 GM 1 tablet Orally Twice a day ActivetiZANidine 4 mg oral tablet (9 sources)Central alpha-2 Adrenergic AgonistStart: 63-88-0761pmNDWklait (Zanaflex) 4 MG tablet Indications: Chronic left-sided low back pain with left- sided sciatica Take 1/2-1 by mouth twice a day 60 tablet 1 11/03/2023 Active Turmeric Root Extract 500 mg capsule (1 source)Start: 47-92-3191jick 1 capsule by mouth once dailyTurmeric Root Extract 500 mg capsule Active 1000 MG PO Daily 60 0 January 23, 2025 12:00am Complies with drug therapyubidecarenone 100 mg oral capsule (20 sources)Start: 07-31-1118Fzjysici Q10 (Coq-10) 100 mg Capsule Active 200 MG PO Daily January 03, 2019 11:00pm Complies with drug therapytake 1 capsule by mouth once dailycoenzyme Q-10 100 mg capsule Take 1 capsule (100 mg) by mouth once daily. Activevalsartan 160 mg oral tablet (20 sources)Angiotensin 2 Receptor BlockerStart: 09-22-2023 End: 84-12-4478oind 1 tablet by mouth once dailyvalsartan (Diovan) 160 MG tablet Take 160 mg by mouth Daily 03/24/2024 ActiveVitamin B Complex (Super B-50 Complex) Capsule (20 sources)Start: 27-84-2693gwgd 1 capsule by mouth once dailyVitamin B Complex (Super B-50 Complex) Capsule Active 1 CAP PO Daily January 03, 2019 11:00pm Complies with drug therapyStart: 57-61-1982aphz 1 capsule by mouth once daily Vitamin B Complex (Super B-50 Complex) Capsule Active 1 CAP PO Daily January 04, 2019 12:00am Complies with drug therapyStart: 22-01-1140kqsd 1 capsule by mouth once dailyStart: 54-49-6935ymvu 1 capsule by mouth once dailyVitamin B Complex (Super B-50 Complex) Capsule Active 1 CAP PO Daily January 03, 2019 11:00pmStart: 73-66-9866owhv 1 capsule by mouth once dailyVitamin B Complex (Super B-50 Complex) Capsule Active 1 CAP PO Daily January 04, 2019 12:00am vitamin b complex capsule (20 sources)take 1 capsule [...] cap(s) Orally daily ActiveVitamin D (6 sources)Start: 24-58-6280iptp 5000 [IU] by mouth once dailyVitamin D 5,000 unit(s), Oral, Daily, Refills(s) 0, Prophylaxis Start Date: 01/31/19 Status: OrderedVitamin D 1000 mg (20 sources)take 1 capsule by mouth once dailyVitamin D 1000 mg 1 capsule Orally Once a day Not-Takingtake 1 capsule by mouth once dailyVitamin D 1000 mg 1 capsule Orally Once a day ActiveZinc Amino Acid Chelate (3 sources)Start: 87-06-7754lfja 50 mg by mouth once dailyZinc Amino Acid Chelate Active 50 MG PO Daily October 20, 2023 12:00amzinc gluconate 50 mg oral tablet (4 sources)take 1 tablet by mouth once dailyzinc gluconate 50 mg tablet Take 1 tablet by mouth once daily. Active Completed/Discontinued Medications MedicationDrug Class(es)DatesSig (Normalized)Sig (Original)amLODIPine 5 mg oral tablet (20 sources)Dihydropyridine Calcium Channel BlockerStart: 01-23-2025 End: 17-59-4590jdjl 1 tablet by mouth once dailyAmlodipine 5 mg tablet Discontinued 5 MG PO Daily January 23, 2025 2:11pm January 23, 2025 2:23pm Start: 01-16-2025 End: 50-92-2773Btxkfhntzq 5 mg tablet Discontinued 0 .ROUTE .COMPLEX 90 January 16, 2025 9:09am January 2:11pm TAKE 1 TABLET DAILYStart: 12-02-2024 End: 55-72-9063xjiv 0.5 tablet by mouth once daily, then take 1 tablet by mouth once dailyAmlodipine 5 mg tablet Discontinued 0 PO Daily 45 3 December 02, 2024 7:50am January 16, 2025 9:10am take 1/2 of a 5 MG tablet orally daily; Start: 01-18-2024 End: 46-88-8141azhb 1 tablet by mouth once dailyAmlodipine 5 mg tablet Discontinued 5 MG PO Daily 90 3 January 18, 2024 1:57pm December 02, 2024 7:51amStart: 03-17-2017 End: 71-16-7153kqjh 1 tablet by mouth once dailyAmlodipine 5 mg Tablet Discontinued 1 TAB PO Daily March 17, 2017 12:00am October 20, 2023 2:47pm Aspir-81 (20 sources)Aspir-81 Not-Taking/PRNAspir-81 Dyx-JcsczsDslqx-67 Activeaspirin 81 mg chewable tablet (20 sources)Platelet Aggregation Inhibitor, Nonsteroidal Anti-inflammatory Drug Start: 05-13-2023 End: 83-67-6241urqf 1 tablet by mouth once dailyAspirin (Tre Chewable Aspirin) 81 mg tablet,chewable Discontinued 81 MG PO Daily May 13, 2023 12:00am May 13, 2023 8:16amStart: 66-69-5272hlig 1 tablet by mouth once daily aspirin 81 mg oral tablet 81 mg = 1 tab(s), Oral, Daily, Refills(s) 0, Blood Thinner Start Date: 02/28/19 Status: OrderedStart: 03-17-2017 End: 65-57-3396owtu 1 tablet by mouth once dailyAspirin (Aspir-81) 81 mg Tablet,Delayed Release (Dr/Ec) Discontinued 81 MG PO Daily March 17, 2017 12:00am May 13, 2023 8:16amCalcium Citrate (2 sources)Citracal + D TABS Take 1 tablet daily Quantity: 0 Refills: 0 Ordered: 23-Sep-2021 DO Activecefdinir 300 mg oral capsule (6 sources)Cephalosporin AntibacterialStart: 11-23-2024 End: 20-49-9177dcdy 2 capsules by mouth once dailyCefdinir 300 mg capsule Discontinued 600 MG PO Daily November 22, 2024 11:00pm January 23, 2025 2:04pm Take 2 (300 mg) capsules together once a day for 10 dayscephalexin 500 mg oral capsule (20 sources)Cephalosporin AntibacterialStart: 06-03-2023 End: 15-37-1510wfnh 1 capsule by mouth three times dailyCephalexin 500 mg capsule Discontinued 500 MG PO Three times daily 21 7 June 03, 2023 9:50am August 20, 2023 7:11amStart: 05-18-2023 End: 51-95-3895bfwk 1 capsule by mouth twice dailyCephalexin 500 mg capsule Discontinued 500 MG PO Twice daily May 18, 2023 12:00am August 7:11amciprofloxacin 500 mg oral tablet (19 sources)Quinolone AntimicrobialStart: 05-27-2023 End: 19-77-7668ipur 1 tablet by mouth twice dailyCiprofloxacin Hcl 500 mg tablet Discontinued 500 MG PO Twice daily May 26, 2023 11:00pm June 03, 2023 8:09amclonazePAM 0.5 mg oral tablet (20 sources)BenzodiazepineStart: 11-25-2023 End: 55-76-7558qlclxeeWBZ orally disintegrating 0.5 mg tab(s) (KlonoPIN WAFER) Start: 11-25-2023 End: 33-17-2440fevi 1 tablet by mouth once0.5 mg, ORAL, ONCE, 1 dose, On Thu11/25/23 at 1430, Hazardous Potential Reproductive Risk Drug: Useappropriate PPE. Place tablet on tongue and allow to dissolve; do not chew or break. Open packagingusing dry gloves; do not push tablet through packaging.Start: 03-17-2017 End: 52-04-1263gocz 0.5-1 tablets by mouth in the morningclonazePAM (KlonoPIN) 0.5 MG tablet Indications: Restless Leg Syndrome Take 0.5 mg by mouth in the m orning and 0.5 mg before bedtime. 1/2-1 tablet . 12/30/2022 ActiveclonazePAM (KlonoPIN) 0.5 mg tablet Take 2 tablets (1 mg) by mouth as needed at bedtime. ActiveMagnesium (3 sources)Start: 01-23-2025 End: 63-95-1344ixwawuuxq Discontinued PO Daily January 23, 2025 12:00am January 23, 2025 2:24pmtake 1 tablet by mouth once dailyMagnesium 400 MG Oral Tablet Take 1 tablet daily Quantity: 90 Refills: 3 Ordered: 23-Sep-2021 DO Act ivemethylPREDNISolone 4 mg oral tablet (20 sources)CorticosteroidStart: 10-09-2023 End: 46-33-1985nnbz 1 tablet by mouth once at mealtimeMethylprednisolone (Medrol (Royal)) 4 mg tablets,dose pack Discontinued 0 PO per package directions 21 6 0 October 09, 2023 11:42am October 20, 2023 2:48pm with foodmetroNIDAZOLE 500 mg oral tablet (8 sources)Nitroimidazole AntimicrobialStart: 67-65-5860zouu 1 tablet by mouth every eight hoursmetroNIDAZOLE 500 MG 1 tablet Orally Three times a day for 14 days Apr, Not-TakingNaltrexone (14 sources)Opioid AntagonistNaltrexone Not-TakingNaltrexone ActiveNaltrexone HCl TABS 4.5mg take once dialy Quantity: 0 Refills: 0 Ordered: 23-Sep-2021 DO Activenitrofurantoin, macrocrystals 25 mg / nitrofurantoin, monohydrate 75 mg oral capsule (18 sources)Nitrofuran AntibacterialStart: 06-15-2023 End: 78-59-3125ohey 1 capsule by mouth twice daily at mealtimeNitrofurantoin Monohyd/M-Cryst (Macrobid) 100 mg capsule Discontinued 100 MG PO Twice daily 14 7 0 June 14, 2023 11:00pm August 20, 2023 7:15am must administer with a meal/foodOmega-3 Fatty Acids (7 sources)Start: 05-13-2023 End: 69-06-0853qogf 1000 mg by mouth once dailyOmega-3 Fatty Acids Discontinued 1000 MG PO Daily May 13, 2023 1:00am August 20, 2023 8:16amStart: 19-28-3145cuzv 1000 mg by mouth once dailyOmega-3 Fatty Acids Active 1000 MG PO Daily May 13, 2023 1:00amOmega-3 Fatty Acids 1,000 mg capsule (12 sources)Start: 05-13-2023 End: 24-91-4293bgjf 1 capsule by mouth once dailyOmega-3 Fatty Acids 1,000 mg capsule Discontinued 1000 MG PO Daily May 13, 2023 1:00am August 20, 2023 8:16amStart: 05-13-2023 End: 27-27-7571otid 1 capsule by mouth once dailyOmega-3 Fatty Acids 1,000 mg capsule Discontinued 1000 MG PO Daily May 13, 2023 12:00am 2023 7:16amondansetron 4 mg oral tablet (9 sources)Serotonin-3 Receptor AntagonistStart: 07-18-2024 End: 19-17-4694hszg 1 tablet by mouth every eight hours as needed for nausea and vomitingOndansetron Hcl 4 mg tablet Discontinued 4 MG PO Every 8 hours as needed for nausea and vomiting 155 0 July 17, 2024 11:00pm January 23, 2025 2:24pmoseltamivir 75 mg oral capsule (11 sources)Neuraminidase InhibitorStart: 04-19-2024 End: 81-51-8841iyeo 1 capsule by mouth once dailyOseltamivir (Tamiflu) 75 mg capsule Discontinued 75 MG PO Daily 10 0 April 19, 2024 12:00am June 01, 2024 7:15amphentermine hydrochloride 37.5 mg oral tablet (5 sources)Sympathomimetic Amine Anorectictake 0.5 tablet by mouth once daily Phentermine HCl 37.5 MG 1/2 tablet Orally Once a day Not-TakingrOPINIRole 0.25 mg oral tablet (18 sources)Nonergot Dopamine AgonistStart: 09-12-2024 End: 30-44-4201pqka 1 tablet by mouth once daily at bedtimeRopinirole 0.25 mg tablet Discontinued 0.25 MG PO Daily at bedtime December 26, 2024 10:53am January 23, 2025 2:28pm administer 1-3 hours before bedtimesodium bicarbonate 325 mg oral tablet (20 sources)Start: 01-04-2019 End: 39-22-7057pteb 1 g by mouth twice dailySodium Bicarbonate 325 mg Tablet Discontinued 1 GM PO Twice daily January 03, 2019 11:00pm May 13, 2023 8:19amStart: 01-04-2019 End: 56-48-3815cmqx 1 g by mouth twice dailySodium Bicarbonate Discontinued 1 GM PO Twice daily January 04, 2019 12:00am May 13, 2023 9:19am triamcinolone acetonide 0.25 mg/ml topical cream (20 sources)CorticosteroidStart: 03-17-2017 End: 54-61-5972Efmyucahrzaas Acetonide 0.025 % Cream Discontinued 1 APPLIC TOPICAL Daily March 17, 2017 12:00amAugust 20, 2023 7:17amubidecarenone 100 mg / vitamin e 5 unt oral capsule (1 source)take 1 capsule by mouth once dailyCo Q 10 100 MG Oral Capsule TAKE 1 CAPSULE Daily Quantity: 0 Refills: 0 Ordered: 23-Sep-2021 DO ActiveVitamin B Complex (20 sources)Start: 05-13-2023 End: 24-66-0213rpad 1 tablet by mouth once dailyVitamin B Complex Discontinued 1 TAB PO Daily May 13, 2023 1:00am October 20, 2023 3:49pmStart: 70-20-5557sqtv 1 tablet by mouth once dailyVitamin B [...] Ordered: 23-Sep-2021 DO ActiveVitamin B Complex tablet (12 sources)Start: 05-13-2023 End: 02-29-1073zwxc 1 tablet by mouth once dailyVitamin B Complex tablet Discontinued 1 TAB PO Daily May 13, 2023 1:00am October 20, 2023 3:49pm Start: 05-13-2023 End: 32-84-6944rvgf 1 tablet by mouth once dailyVitamin B Complex tablet Discontinued 1 TAB PO Daily May 13, 2023 12:00am October 20, 2023 2:49pm vitamin e 180 mg oral capsule (20 sources)Start: 01-04-2019 End: 19-27-2636prok 1 capsule by mouth once dailyVitamin E 400 unit Capsule Discontinued 400 UNIT PO Daily January 03, 2019 11:00pm January 2:30pmvitamin E 400 intl units Cap (6 sources)Start: 11-06-5818lldd 1 capsule by mouth once dailyvitamin E 400 intl units Cap 400 International_Unit = 1 cap(s), Oral, Daily, Refills(s) 0, Prophylaxis Start Date: 01/31/19 Status: OrderedVitamin K TABS (2 sources)Vitamin K TABS TAKE 1 TABLET DAILY DIRECTED. Quantity: 0 Refills: 0 Ordered: 23-Sep-2021 DO ActiveZinc Amino Acid Chelate 50 mg tablet (12 sources)Start: 10-20-2023 End: 04-12-9494afos 1 tablet by mouth once dailyZinc Amino Acid Chelate 50 mg tablet Discontinued 50 MG PO Daily October 19, 2023 11:00pm January 23, 2025 2:30pmStart: 18-12-6377vlwh 1 tablet by mouth once dailyZinc Amino Acid Chelate 50 mg tablet Active 50 MG PO Daily October 20, 2023 12:00am Complies with drug therapyStart: 72-83-1393lxlw 1 tablet by mouth once dailyStart: 30-69-5040jeex 1 tablet by mouth once dailyZinc Amino Acid Chelate 50 mg tablet Active 50 MG PO Daily October 20, 2023 12:00amStart: 99-29-3658pgqp 1 tablet by mouth once daily Zinc Amino Acid Chelate 50 mg tablet Active 50 MG PO Daily October 19, 2023 11:00pmZOLMitriptan 2.5 mg oral tablet (20 sources)Serotonin-1b and Serotonin-1d Receptor AgonistStart: 01-16-2025 End: 37-99-4458gpbe 1 tablet by mouth every two hoursZolmitriptan (Zomig) 2.5 mg tablet Discontinued 2.5 MG PO .COMPLEX 6 1 January 16, 2025 12:00am January 16, 2025 3:52pm Other migraine without status migrainosus, not intractable Other migraine, not intractable, without status migrainosus 2.5 mg orally at onset of migraine headache may repeat in 2 hoursStart: 03-17-2017 End: 87-31-2145Jqkakdpvcxnw (Zomig) 2.5 mg [place],Non-Aerosol Discontinued 5 MG INTRANASAL Four times daily as needed for Headache March 17, 2017 12:00am January 16, 2025 12:38pmZOLMitriptan (ZOMIG) 2.5 mg tablet Take 2.5 mg by mouth as needed. Activetake 1 tablet nasal route once as needed, then take 4 tablets nasal route once daily as neededZomig 2.5 MG 1 tablet as needed one time Nasally prn up to 4 daily prn Active Problems Active Problems Problem ClassificationProblemDateDocumented DateEpisodic/ChronicAbdominal hernia (8 sources)Hiatal hernia; Translations: [Diaphragmatic hernia without obstruction or gangrene]Onset: 073838-93-1755LnbltdtrLxlkprga foot deformities (20 sources)Acquired hammer toe of right foot; Translations: [Other hammer toe(s) (acquired), right foot]ChronicAnxiety disorders (20 sources)Anxiety; Translations: [Anxiety disorder, unspecified]Onset: 01-23-2021 Resolved: 60-73-1586MszduiqSmxtiyg tract disease (20 sources)Biliary calculus; Translations: [Gangrene of gallbladder]10-16-2018 EpisodicCardiac dysrhythmias (20 sources)Paroxysmal supraventricular tachycardia; Translations: [Supraventricular tachycardia]Onset: 05-10-2021 Resolved: 546120-09-1857FiyyawxUhletzycqc and other anemia (20 sources)Iron deficiency anemia; Translations: [Iron deficiency anemia, unspecified]Onset: 729847-51-8033QwwhgbazFdaoaixu mellitus without complication (20 sources)Hyperglycemia, unspecified; Translations: [Hyperglycemia]Onset: 05-10-2021 Resolved: 60-20-0633MplividuYffgiuwq of white blood cells (20 sources)Leukopenia; Translations: [Decreased white blood cell count, unspecified]Onset: 08-07-2021 Resolved: 01-73-6661UqrdudxZcoharmiq of lipid metabolism (20 sources)Hyperlipidemia; Translations: [Hyperlipidemia, unspecified]Onset: 05-10-2021 Resolved: 465220-21-6012IssdkuqVypxrmuphb disorders (20 sources)Gastroesophageal reflux disease; Translations: [Gastro-esophageal reflux disease without esophagitis]Onset: 05-10-2021 Resolved: 763927-22-3068SabkruiJizfcmjpp hypertension (20 sources)Hypertensive disorder; Translations: [Essential (primary) hypertension]Onset: 05-10-2021 Resolved: 674906-10-6614TmmczqtKlcaj and electrolyte disorders (12 sources)Hypo-osmolality and hyponatremia; Translations: [Acute hypokalemia] Onset: 05-10-2021 Resolved: 11-64-6493UavzsedxRyulrdgxgqqeoy ulcer (except hemorrhage) (15 sources)Multiple gastric ulcers; Translations: [Gastric ulcer, unspecified as acute or chronic, without hemorrhage or perforation]Onset: 02-10-2023 99-05-6820BodbgixJymczwsfihmvd symptoms and ill-defined conditions (3 sources)NocturiaOnset: 05-10-2021 Resolved: 07-93-6717UgijinypJjag and other crystal arthropathies (20 sources)Gout; Translations: [Gout, unspecified]Onset: 01-27-2023 Resolved: 735031-86-5144NjfawqvJdvvnaoi; including migraine (20 sources)Migraine; Translations: [Migraine variant with headache]Onset: 05-10-2021 Resolved: 176931-61-5122ZklaugeEaerdjmd; including migraine (9 sources)Headache; Translations: [Headache]61-33-0139ZgizdmjlTkmkfaoo; including migraine (1 source)Headache; including migraine; Translations: [Headache, unspecified] Onset: 70-06-5251Iwkdtcxkymihp mental health disorders (7 sources)Feeling of lump in throat; Translations: [Other somatoform disorders] ChronicMood disorders (19 sources)Depressive disorder; Translations: [Depression]Onset: 02-10-2023 21-60-3249MnvdrldLiojvg and vomiting (9 sources)Nausea; Translations: [Nausea]24-96-9099NjhucamxQqflnlqigau chest pain (4 sources)Chest pain; Translations: [Other chest pain]Onset: 01-24-2025 92-04-4089QekeqesoPfrnxjafqmz deficiencies (20 sources)Vitamin D deficiency; Translations: [Vitamin D deficiency, unspecified]Onset: 05-10-2021 Resolved: 99-93-6347SvpzvlrRcfgxwtjboznaq (20 sources)Arthritis; Translations: [Osteoarthritis]Onset: ChronicOther acquired deformities (1 source)Lumbar spondylolisthesis; Translations: [Spondylolisthesis, lumbar region]04-86-3538YsmwhyfcHtmgq aftercare (1 source)Drug therapy finding; Translations: [Other care home (current) drug therapy]93-42-0474PdhfdwvaDhmdj bone disease and musculoskeletal deformities (19 sources)Osteopenia; Translations: [Other specified disorders of bone density and structure, unspecified site]22-15-6795XlashzklRssyh connective tissue disease (11 sources)Artificial knee joint present; Translations: [Presence of right artificial knee joint]Onset: 962812-45-5341SwjebydHxcno connective tissue disease (1 source)Pain in unspecified handEpisodicOther connective tissue disease (2 sources)Weakness of left hand; Translations: [Other symptoms and signs involving the musculoskeletal system]54-03-4852RfsxhsvlEoekf connective tissue disease (1 source)Other symptoms and signs involving the musculoskeletal system; Translations: [Left hand weakness]Onset: 92-50-5787AijrlqdnLnvlq ear and sense organ disorders (20 sources)Decreased hearing ; Translations: [Unspecified hearing loss, unspecified ear]ChronicOther ear and sense organ disorders (20 sources)Hearing loss; Translations: [Unspecified hearing loss, unspecified ear]ChronicOther ear and sense organ disorders (14 sources)Unspecified sensorineural hearing loss; Translations: [Sensorineural hearing loss (SNHL) of right ear]68-30-7125EazwumcHynpl ear and sense organ disorders (9 sources)Sensorineural hearing loss, bilateral; Translations: [Sensorineural hearing loss, bilateral]Onset: 940809-10-8460KtlhqtfKmgxc ear and sense organ disorders (8 sources)Sensorineural hearing loss in right ear; Translations: [Unspecified sensorineural hearing loss]45-49-2708LjujkxaVncrr gastrointestinal disorders (1 source)Diarrhea, unspecifiedEpisodicOther gastrointestinal disorders (6 sources)Dysphagia; Translations: [Dysphagia, unspecified]EpisodicOther gastrointestinal disorders (2 sources)Dysphagia, unspecifiedEpisodicOther gastrointestinal disorders (6 sources)Esophageal dysphagia; Translations: [Other dysphagia]Onset: 409040-48-5287BfavleibAaqdb hereditary and degenerative nervous system conditions (20 sources)Restless legs; Translations: [Restless legs syndrome]Onset: 503494-03-2332LuxdfzqDhifi hereditary and degenerative nervous system conditions (20 sources)Restless legs syndrome; Translations: [Restless legs syndrome (RLS)] Onset: 01-23-2021 Resolved: 85-20-2111ZklwwpxSosmm liver diseases (20 sources)Steatosis of liver; Translations: [Fatty (change of) liver, not elsewhere classified]65-98-2569DbkztdqXaqyg liver diseases (4 sources)Fatty (change of) liver, not elsewhere classified; Translations: [Other chronic nonalcoholic liver disease]Onset: 10-31-2021 Resolved: 11-31-5120GedeuwqJalyl lower respiratory disease (20 sources)Nodule of lung; Translations: [Solitary pulmonary nodule]08-07-2023 EpisodicComment on above:saw Dr. Mcrae in the past, has history of stable noncalcified pulmonary nodules bilaterallyOther lower respiratory disease (5 sources)Dyspnea; Translations: [Shortness of breath]31-23-8205FoefegewCzgcs lower respiratory disease (1 source)Shortness of breath; Translations: [Shortness of breath]Onset: 25-42-2425QmrbfysrWrbfh nervous system disorders (20 sources)Neuropathy; Translations: [Polyneuropathy, unspecified]08-20-2023 ChronicOther nervous system disorders (5 sources)Polyneuropathy, unspecified; Translations: [Mononeuritis of unspecified site]ChronicOther nervous system disorders (13 sources)Carpal tunnel syndrome of left wrist; Translations: [Carpal tunnel syndrome, left upper limb]59-56-9280LhmimbmJgeef nervous system disorders (4 sources)Carpal tunnel syndrome, left upper limb; Translations: [Carpal tunnel syndrome]Onset: 004719-70-8105GitiftzIbcdy nervous system disorders (1 source)Carpal tunnel syndrome, unspecified upper limb; Translations: [Carpal tunnel syndrome, unspecified laterality]Onset: 02-62-9722DomomlaSnckt nervous system disorders (20 sources)Skin sensation disturbance; Translations: [Paresthesia of skin] 45-66-1533LuyrnsjqMireo nervous system disorders (1 source)Numbness; Translations: [Anesthesia of skin]23-18-0244FdyczwreJrwqo nervous system disorders (12 sources)Paresthesia of hand ; Translations: [Anesthesia of skin]03-01-2024 EpisodicOther nervous system disorders (2 sources)Anesthesia of skin; Translations: [Disturbance of skin sensation] 10-05-4372RcfptkuhJvonb non-traumatic joint disorders (15 sources)Pain in left knee; Translations: [Left knee pain]Onset: 03-01-2024 99-65-7803HrddvzczAdgex nutritional; endocrine; and metabolic disorders (6 sources)Obese class I; Translations: [Body mass index (BMI) 32.0-32.9, adult] Onset: 80-55-8581YiaiigsFqzbc nutritional; endocrine; and metabolic disorders (2 sources)Obesity; Translations: [Obesity, unspecified]ChronicOther nutritional; endocrine; and metabolic disorders (2 sources)Body mass index 30+ - obesity; Translations: [Body mass index (BMI) 35.0-35.9, adult]Onset: 289245-07-4022LkxunswAhmtr nutritional; endocrine; and metabolic disorders (7 sources)Weight gain; Translations: [Abnormal weight gain]34-65-0250Ypqezxiy Other nutritional; endocrine; and metabolic disorders (12 sources)Weight increased; Translations: [Abnormal weight gain]05-13-2023 EpisodicOther nutritional; endocrine; and metabolic disorders (2 sources)Overweight in adulthood with body mass index of 25 or more but less than 30; Translations: [Body mass index (BMI) 29.0-29.9, adult]Onset: 09-22-2023 69-51-2442PathtclwGaqoz nutritional; endocrine; and metabolic disorders (1 source)Overweight; Translations: [Overweight]85-95-9760AiuwmoutRsvwd nutritional; endocrine; and metabolic disorders (8 sources)Weight decreased; Translations: [Abnormal weight loss]12-02-2024 EpisodicOther screening for suspected conditions (not mental disorders or infectious disease) (7 sources)Patient encounter status; Translations: [Encounter for screening for malignant neoplasm of colon]Onset: 602504-86-8174LtelgvciSejmasec; pneumothorax; pulmonary collapse (20 sources)Atelectasis; Translations: [Atelectasis]EpisodicResidual codes; unclassified (20 sources)Insomnia; Translations: [Insomnia, unspecified]65-77-9280Clsiqgub Residual codes; unclassified (3 sources)Insomnia, unspecified; Translations: [Insomnia, unspecified]Episodic Residual codes; unclassified (4 sources)Never smoked tobacco; Translations: [Other specified health status] Onset: 664722-80-9439ExdrwvzoGoiauajn codes; unclassified (1 source)Pain, unspecified; Translations: [Pain]Onset: 35-61-2587Aumeabex Residual codes; unclassified (1 source)Postoperative state; Translations: [Other specified postprocedural states]80-63-8587BjkijapeHugaedgo codes; unclassified (1 source)Other specified postprocedural states; Translations: [Post-operative state]Onset: 75-84-2656ToiresggThwawgog codes; unclassified (8 sources)Edema; Translations: [Edema, unspecified]40-07-2982DcekceuzCkkqqxtoyg arthritis and related disease (20 sources)Rheumatoid arthritis; Translations: [Rheumatoid arthritis, unspecified]Onset: 24-07-0296ClqhtrfDbvgqqjnsox; intervertebral disc disorders; other back problems (20 sources)Degeneration of lumbar intervertebral disc; Translations: [Other intervertebral disc degeneration, lumbar region]Onset: ChronicSubstance-related disorders (3 sources)Marijuana user; Translations: [Cannabis use, unspecified, uncomplicated]Onset: 791973-45-2103OitejzfnZlfqqrejgcvp (6 sources)Avysdjmzki45-92-8727Dsdgughfklot (3 sources)POST PROCEDURE PAIN DIARY - THERAPEUTIC NERVE BLOCK - M4Bzfjg: 069768-58-2624Srxpnbtruaub (8 sources)Patient encounter status; Translations: [Z12.11 - Encounter for screening for malignant neoplasm ofcolon]Unclassified (1 source)Supraventricular tachycardia, unspecified; Translations: [Supraventricular tachycardia, unspecified]Onset: 92-61-7764Bucsfjb tract infections (20 sources)Cystitis; Translations: [Cystitis, unspecified without hematuria] Onset: 501143-43-8259Eitahyrx Past or Other Problems Problem ClassificationProblemDateDocumented DateEpisodic/ChronicConditions associated with dizziness or vertigo (2 sources)Dizziness and giddiness; Translations: [Dizziness and giddiness] Onset: 09-12-2021 Resolved: 79-23-4876TucphshjSxcnsacsez and other anemia (14 sources)Iron deficiency anemia, unspecified; Translations: [Iron deficiency anemia, unspecified]Onset: 05-10-2021 Resolved: 69-89-0043RnxnvtmxNhgeauvvvzlte and screening for infectious disease (3 sources)Other specified abnormal immunological findings in serumOnset: 01-23-2021 Resolved: 96-32-1944WwgfumwqFlndd aftercare (1 source)Other care home (current) drug therapy; Translations: [Other care home (current) drug therapy]Onset: 35-52-8326MsekejddIfekz bone disease and musculoskeletal deformities (1 source)Other specified disorders of bone density and structure, other site; Translations: [Other specifieddisorders of bone density and structure, other site]Onset: 82-78-3655KfonhsgqVboqg connective tissue disease (9 sources)Pain of left hand; Translations: [Pain in left hand]Onset: 07-07-2023 70-96-6108IaflbtwiZarfx connective tissue disease (9 sources)Pain in right hand; Translations: [Pain in right hand]Onset: 782564-84-1209VnfcslpkEyoiq ear and sense organ disorders (9 sources)Sudden hearing loss; Translations: [Sudden idiopathic hearing loss, unspecified ear]Onset: 668728-29-6199TaphxdujWmqnt ear and sense organ disorders (9 sources)Bilateral tinnitus; Translations: [Tinnitus, bilateral]Onset: 399118-45-8725WnkppmgkPyrrg ear and sense organ disorders (9 sources)Tinnitus; Translations: [Tinnitus, unspecified ear]Onset: 01-27-2023 51-10-1809EojmfdtjGmsbp nervous system disorders (20 sources)Paresthesia; Translations: [Paresthesia of skin]Onset: 07-07-2023 28-40-9451SnuzbeanPdbqu nervous system disorders (1 source)Paresthesia of skinOnset: 01-23-2021 Resolved: 98-83-3412LqckettqDxnnh nervous system disorders (11 sources)Anesthesia of skin; Translations: [Anesthesia of skin]Onset: 083457-10-2760GsyrvdenRvunm nervous system disorders (1 source)Unspecified disturbances of skin sensation; Translations: [Disturbance of skin sensation]Onset: 30-48-7042QvbwwmkoHdhqu nutritional; endocrine; and metabolic disorders (2 sources)Abnormal weight lossOnset: 01-23-2021 Resolved: 08-56-5519DokwccsfElktj nutritional; endocrine; and metabolic disorders (3 sources)Abnormal weight gain; Translations: [Abnormal weight gain]Onset: 10-31-2021 Resolved: 77-12-3937NqgmnwfyMxxqd nutritional; endocrine; and metabolic disorders (2 sources)Body mass index (BMI) 29.0-29.9, adult; Translations: [Body mass index (BMI) 29.0-29.9, adult]Onset: 34-02-8749MvbbzismKlsveefp codes; unclassified (1 source)Bilateral lower limb edema; Translations: [Localized edema]09-22-2023 EpisodicResidual codes; unclassified (2 sources)Other specified health status; Translations: [Other specified health status]Onset: 18-43-3993IpdxbcbmYdwwttjclph; intervertebral disc disorders; other back problems (15 sources)Cervicalgia; Translations: [Lumbar radiculopathy]Onset: 11-03-2023 EpisodicUnclassified (1 source)Never smoked tobacco; Translations: [Never smoker]Unclassified (2 sources)Onset: 09-22-2023 Resolved: 342308-21-0485Otyezflzfjlp (1 source)Supraventricular tachycardia, unspecified; Translations: [Supraventricular tachycardia, unspecified]Onset: 09-21-2024 Results Test NameValueInterpretationReference RangeFacilityBasophils Auto (Bld) [#/Vol] Ordered By: Mayco Velasquez on 69-78-5025Iuwuichfk (Bld) [#/Vol]0.1 10 3/uL0.0-0.1 [facility] FoundationBasophils/100 WBC Auto (Bld)Ordered By: Mayco Velasquez on 05-33-2883Lixzpiels/100 WBC (Bld)1.1 %0.2-2.0[facility] FoundationEosinophils/100 WBC Auto (Bld)Ordered By: Mayco Velasquez on 02-61-2234Rosmkhzkzpo/100 WBC (Bld)3.8 %0.9-7.0[facility] Erythrocyte distribution width Auto (RBC) [Ratio]Ordered By: Mayco Velasquez on 03-41-3145Ezinymrhrjt distribution width (RBC) [Ratio]12.5 %11.0-15.0[facility] FoundationFibrin D-dimer [Presence] in Platelet poor plasma by Latex agglutinationOrdered By: Jose Francisco Campos on 30-52-2136Vxokam D-dimer LA Ql (PPP)0.43 mg/L FEU<=0.59[facility] FoundationComment on above: Increases in D-Dimer concentration observed withthromboembolic events can be variable due to localization,size, and age of the thrombus. Therefore, a thromboembolicevent cannot be diagnosed with certainty on the basis of thereference range. D-Dimers may also be elevated for a varietyof disorders inc luding advanced age, , coronarydisease, cancer, liver disease, infection, inflammation,hematoma, DIC, trauma, post-surgery, diabetes, thrombolyticor anticoagulant therapy, stress, and generalizedhospitalization. Globulin Calc (S) [Mass/Vol]Ordered By: Jose Francisco Campos on 49-64-8969Usmnszcw (S) [Mass/Vol]2.9 g/dLCleveland Clinic FoundationGlomerular filtration rate (GFR) estimation in non- AmericanOrdered By: Jose Francisco Campos on 01-22-2025 GFR/1.73 sq M.predicted among non-blacks MDRD (S/P/Bld) [Vol rate/Area] mL/min/{1.73_m2}>=60 mL/min/1.73m 2FAshtabula County Medical CenterHematocrit Auto (Bld) [Volume fraction]Ordered By: Mayco Velasquez on 02-94-3534Vcxkwgsgrp (Bld) [Volume fraction]45.9 %36.0-48.0[facility] Hemoglobin [Mass/volume] in BloodOrdered By: Mayco Velasquez on 01-22-2025 Hemoglobin (Bld) [Mass/Vol]15.3 g/dL12.0-16.0[facility] Laboratory - Chemistry and Chemistry - challengeOrdered By: Billy Martinez on 65-15-8587Jaadnzoay Ql (U)NegativeNEGATIVECleveland Clinic Foundation Glucose (U) [Mass/Vol]NegativeNEGATIVECleveland Clinic FoundationKetones Ql (U)NegativeNEGATIVECleveland Clinic FoundationpH (U)7.5 [pH]5.0-9.0 [facility] Systempecific gravity (U) [Rel density]1.010 1.005-1.025[facility] FoundationUrobilinogen Qn (U)0.2 {Evan'U}/dL0.2-1.0[facility] FoundationLaboratory - Chemistry and Chemistry - challengeOrdered By: Jose Francisco Campos on 65-72-2797Bgccgjx [Mass/Vol]4.4 g/dL3.4-5.0[facility] FoundationALP [Catalytic activity/Vol]96 U/L 46-116[facility] FoundationALT [Catalytic activity/Vol]33 U/L14-59 [facility] FoundationAST [Catalytic activity/Vol]27 U/L15-37 [facility] FoundationBilirubin [Mass/Vol]0.5 mg/dL0.2-1.0[facility] FoundationCalcium [Mass/Vol]9.5 mg/dL8.5-10.1FAshtabula County Medical CenterChloride [Moles/Vol]99 mmol/Q40-942ZnzpysjubCleveland Clinic FoundationCO2 [Moles/Vol]29.1 mmol/L21.0-32.0[facility] Creatinine [Mass/Vol]0.82 mg/dL0.55-1.02[facility] GFR/1.73 sq M.predicted MDRD (S/P/Bld) [Vol rate/Area]mL/min/{1.73_m2}>=60 mL/min/1.73m 2FAshtabula County Medical CenterGlucose [Mass/Vol]112 mg/dLHigh 74-106[facility] FoundationLactate [Moles/Vol]1.7 mmol/L0.4-2.0 [facility] FoundationLipase [Catalytic activity/Vol]39.0 U/L 16.0-77.0[facility] FoundationPotassium [Moles/Vol]4.2 mmol/L3.5-5.1 [facility] FoundationProtein [Mass/Vol]7.3 g/dL6.4-8.2FAshtabula County Medical Centerodium [Moles/Vol]138 mmol/D316-209McfnnihbeCleveland Clinic FoundationUrea nitrogen [Mass/Vol]15.0 mg/dL7.0-18.0[facility] FoundationUrea nitrogen/Creatinine [Mass ratio]18.3 mg/mgCleveland Clinic FoundationLaboratory - Hematology and Cell countsOrdered By: Mayco Velasquez on 02-90-2486Nwtqowjo granulocytes/100 WBC (Bld)0.1 %0.0-0.5FAshtabula County Medical CenterLaboratory - Specimen informationOrdered By: Billy Martinez on 09-74-8882Qlmqnduecj (U)CLEARCLEARFAshtabula County Medical CenterColor (U)LT. YELLOWYELLOWCleveland Clinic FoundationLaboratory - UrinalysisOrdered By: Billy Martinez on 96-48-6613Ghaimffke esterase Test strip Ql (U)NegativeNEGATIVE [facility] FoundationMucus Ql (Urine sed)NONE SEENNONE SEENCleveland Clinic FoundationNitrite Ql (U)NegativeNEGATIVECleveland Clinic FoundationProtein Ql (U)NegativeNEG/TRACECleveland Clinic FoundationLeukocytes [#/volume] corrected for nucleated erythrocytes in Blood by Automated coun Ordered By: Mayco Velasquez on 67-39-4479PJY corrected for nucl RBC Auto (Bld) [#/Vol]7.1 10 3/uL4.0-11.0[facility] FoundationLymphocytes Auto (Bld) [#/Vol]Ordered By: Mayoc Velasquez on 64-92-3687Ewogtaewswr (Bld) [#/Vol]2.2 10 3/uL1.2-3.8[facility] FoundationLymphocytes/100 WBC Auto (Bld) Ordered By: Mayco Velasquez on 71-11-2684Vhotwaffhzq/100 WBC (Bld)31.3 %20.5-60.0 [facility] HospitalH Auto (RBC) [Entitic mass]Ordered By: Mayco Velasquez on 24-76-8256SYX (RBC) [Entitic mass]28.8 pg26.7-34.0[facility] FoundationMCHC Auto (RBC) [Mass/Vol]Ordered By: Mayco Velasquez on 01-22-2025 MCHC (RBC) [Mass/Vol]33.3 g/dL29.9-35.2FAshtabula County Medical CenterMCV Auto (RBC) [Entitic vol]Ordered By: Mayco Velasquez on 12-82-6592UHL (RBC) [Entitic vol]86.3 fL81.0-99.0[facility] FoundationMonocytes Auto (Bld) [#/Vol]Ordered By: Mayco Velasquez on 47-93-0000Wgldzjyrg (Bld) [#/Vol]0.9 10 3/uL High0.3-0.8[facility] FoundationMonocytes/100 WBC Auto (Bld)Ordered By: Mayco Velasquez on 54-99-0607Fjmgyctms/100 WBC (Bld)12.5 %High1.7-12.0[facility] FoundationNeutrophils Auto (Bld) [#/Vol]Ordered By: Mayco Velasquez on 53-94-5621Fnvxydvdlwo (Bld) [#/Vol]3.6 10 3/uL1.4-6.5FAshtabula County Medical CenterNeutrophils/100 WBC Auto (Bld)Ordered By: Mayco Velasquez on 10-11-7102Oqbyxaaalhf/100 WBC (Bld)51.2 %43.0-75.0[facility] FoundationNo Panel InformationOrdered By: Billy Martinez on 88-63-6919Ezjkm Bacteria NONE SEEN #/HPFNONE SEENCleveland Clinic FoundationUrine Occult Blood NegativeNEGATIVECleveland Clinic FoundationUrine Other CastsNONE SEEN #/LPFNONE SEENCleveland Clinic FoundationUrine Other CrystalsNone Seen #/HPFNone [facility], BeachwoodUrine RBC0-2 #/HPF0-2FAshtabula County Medical CenterUrine Squamous Epithelial CellsRARE #/LPFNONE/RARE [facility] FoundationUrine WBCNONE SEEN #/HPFNONE [facility] HospitalNo Panel InformationOrdered By: Mayco Velasquez on 50-18-5863Dteazrrzucm # (Auto)0.3 10 3/uL0.0-0.7FAshtabula County Medical CenterImmature Granulocyte # (Auto)0.01 10 3/uL0.00-0.03[facility] FoundationNo Panel InformationOrdered By: Jose Francisco Campos on 66-00-6837Sduphggo I High Sensitivity4.4 pg/mL4.0-51.3FAshtabula County Medical CenterComment on above:CUT-OFF POINTS HAVE BEEN ESTABLISHED BASED ON THE FOURTHUNIVERSAL DEFINITION OF MYOCARDIAL INFARCTION. THE UPPERREFERENCE LIMIT (URL) OF TROPONIN, DEFINED THE 99THPERCENTILE OF cTnI DISTRIBUTION IN A REFERENCE POPULATION,HAS BEEN CONFIRMED THE DECISION THRESHOLD FOR MIDIAGNOSIS.99TH PERCENTILE = 51.4 PG/MLNOTE: HIGH-SENSITIVITY TROPONIN ASSAY IS NOT INTENDED TO BEUSED IN ISOLATION BUT SHOULD BE INTERPRETED IN CONJUNCTIONWITH OTHER DIAGNOSTIC AND CLINICAL INFORMATION.Platelet mean volume Auto (Bld) [Entitic vol]Ordered By: Mayco Velasquez on 67-60-1653Sfwzrsbw mean volume (Bld) [Entitic vol]10.3 fL9.5-13.5FAshtabula County Medical CenterPlatelets Auto (Bld) [#/Vol] Ordered By: Mayco Velasquez on 25-56-8204Fsewzutad (Bld) [#/Vol]309 10 3/fN004-803 [facility] FoundationRBC Auto (Bld) [#/Vol]Ordered By: Mayco Velasquez on 76-00-3296JCU (Bld) [#/Vol]5.32 10 6/uL4.20-5.40[facility]als Health Systemerum or plasma albumin/globulin mass ratioOrdered By: Jose Francisco Campos on 68-26-0604Xiinuip/Globulin [Mass ratio]1.5 {ratio}[facility] Health Systemerum or plasma anion gap determinationOrdered By: Jose Francisco Campos on 02-47-9264Pmnuc gap [Moles/Vol]14.1 mmol/LFAshtabula County Medical CenterECH echo transthoracicon 00-34-7154NJU echo transthoracicMIAMI VALLEY [place] [address] Echocardiogram Signed Patient: Suma Scott MR#: [id number] 744 : 1945 Acct:[id number] Age/Sex: 79 / F ADM Date: 01/09/25 Loc: Room: Type: [facility] Attending Dr: Mayco Velasquez DO Ordering Provider: Mayco Velasquez DO Date of Service: 01/09/25/ ECH/ECH echo transthoracic: [place] SOB Copies to: DO Deb Angulo MD, [facility] [address], T BSA: 1.7 m2 BP: 152/88 mmHg HR: [...] 01/09/25 0751 Signed By: Deb Zamora MD, [facility] 01/09/25 0951[facility] Physician GroupAppearance of UrineOrdered By: Mayco Velasquez on 24-79-0778Apshajymcc (U) ClearCleMiami Valley HospitalComment on above:Order Comment: Name Collection Type:: Clean-Voided MidstreamPerformed By: #### CUU, UA #### [facility] [address] [place] [address] USABilirubin Test strip Ql (U)Ordered By: Mayco Velasquez on 02-06-1466Ddyfdfvjm Ql (U)NegativeNegKettering Health – Soin Medical CenterColor of Urine by AutoOrdered By: Mayco Velasquez on 51-37-5627Jusik (U)ColorlessYellow [facility] FoundationComment on above:Order Comment: Name Collection Type:: Clean-Voided MidstreamPerformed By: #### CUU, UA #### [facility] [address] [place] [address] USAGlucose [Mass/volume] in Urine by Test stripOrdered By: Mayco Velasquez on 77-42-7167Qpddggu Test strip (U) [Mass/Vol]Normal mg/dLNormal [facility] FoundationHemoglobin Test strip Ql (U)Ordered By: Mayco Velasquez on 60-75-4433Rzeaivmtxf Ql (U)NegativeNegKettering Health – Soin Medical CenterKetones [Presence] in Urine by Test stripOrdered By: Mayco Velasquez on 19-46-1411Unsfrlz Ql (U)NegativeNegKettering Health – Soin Medical CenterComformerly [facility] on above:Order Comment: Name Collection Type:: Clean-Voided MidstreamPerformed By: #### CUU, UA #### [facility] [address] [place], [place] [id number] USALeukocyte esterase [Presence] in Urine by Test strip Ordered By: Mayco Velasquez on 62-33-7793Counzcpny esterase Test strip Ql (U) NegativeNegKettering Health – Soin Medical CenterComment on above:Order Comment: Name Collection Type:: Clean-Voided MidstreamPerformed By: #### CUU, UA #### [facility] [address] [place], [place] [address] USANitrite Test strip Ql (U)Ordered By: Mayco Velasquez on 25-76-1680Pueikvv Ql (U)NegativeNegKettering Health – Soin Medical CenterProtein Test strip (U) [Mass/Vol]Ordered By: Mayco Velasquez on 07-54-0997Jwbcqum (U) [Mass/Vol]NegativeNegHighland District Hospitalpecific gravity Test strip (U) [Rel density]Ordered By: Mayco Velasquez on 02-34-1248Vomylsha gravity (U) [Rel density]1.0041.001-1.030[facility] FoundationUrinalysison 39-83-0786Bbshysjlp,UrineNegativeNormalNegativeThe [facility] Comment on above:Order Comment: Name Collection Type:: Clean-Voided Midstream Performed By: #### CUU, UA #### [facility] [address] [place], [place] [address] USAGlucose Ql (U)NormalNormalNormalThe [facility] Physician GroupComment on above:Order Comment: Name Collection Type:: Clean-Voided MidstreamPerformed By: #### CUU, UA #### [facility] [address] [place], [place] [address] USANitrite,UrineNegativeNormalNegativeThe [facility] Physician GroupComment on above:Order Comment: Name Collection Type:: Clean-Voided MidstreamPerformed By: #### CUU, UA #### [place] [id number] USAOccult Blood,UrineNegativeNormalNegativeThe [facility] Physician GroupComment on above:Order Comment: Name Collection Type:: Clean- Voided MidstreamResult Comment: PERFORMED BY: [place] [address] PATHOLOGIST [employer] ATTENDANT ROHIT DONALDSON M.D.Performed By: #### CUU, UA #### [place] [address] USAProtein,UrineNegativeNormalNegativeThe [facility] Physician GroupComment on above:Order Comment: Name Collection Type:: Clean-Voided MidstreamPerformed By: #### CUU, UA #### [place] [address] USASpecificy [place],Urine1.004Kzotqb4.001-1.030The [facility] Physician GroupComment on above:Order Comment: Name Collection Type:: Clean- Voided MidstreamPerformed By: #### CUU, UA #### [place] [address] USAUrobilinogen,UrineNormalNormalNormalThe [facility] Physician GroupComment on above:Order Comment: Name Collection Type:: Clean- Voided MidstreamPerformed By: #### CUU, UA #### [place] [address] USAUrine Cultureon 50-01-4513Pmcndkea identified Cx Nom (U)No Growth 2 Days PERFORMED BY: [place] [address] PATHOLOGIST [employer] ATTENDANT ROHIT DONALDSON M.D.NormalAllegiance Specialty Hospital Of GreenvilleComment on above: Performed By: #### CUU, UA #### [place] [address] USAUrine cultureOrdered By: Mayco Velasquez on 12-05-2024 Bacteria identified Cx Nom (U)No Growth 2 DaysCleveland Clinic Foundation Bacteria identified Cx Nom (U)No Growth 2 DaysC[facility] Clinic Foundation Urobilinogen Test strip (U) [Mass/Vol]Ordered By: Mayco Velasquez on 12-05-2024 Urobilinogen (U) [Mass/Vol]Normal mg/dLNormLancaster Municipal HospitalpH of Urine by Test stripOrdered By: Mayco Velasquez on 56-79-3732bF (U)6.5 [pH] 5.0-9.0[facility] FoundationComment on above:Order Comment: Name Collection Type:: Clean-Voided MidstreamPerformed By: #### CUU, UA #### [facility] [address] [place] [address] USABlood Cultureon 59-31-3201Lpxlmfno identified Cx Nom (Bld) NO GROWTH 5 DAYS PERFORMED BY: [place] [address] PATHOLOGIST [employer] ATTENDANT ROHIT DONALDSON M.D.[facility] Physician GroupComment on above: Performed By: #### CUBLD ####[place] [address] USABacteria identified Cx Nom (Bld)Comment rule out sepsis / blood culture x2 NO GROWTH 5 DAYS PERFORMED BY: [place] [address] PATHOLOGIST [employer]UB ATTENDANT ROHIT DONALDSON M.D.[facility] Physician GroupComment on above: Performed By: #### CUBLD ####[place] [address] USALaboratory - Microbiology and Antimicrobial susceptibilityOrdered By: Mayco Velasquez on 16-52-0220Vmfwyxmp identified Cx Nom (Bld)NO GROWTH 5 DAYSCleveland Clinic FoundationBacteria identified Cx Nom (Bld)NO GROWTH 5 [facility] CenterBacteria identified Cx Nom (Bld)NO GROWTH 5 [facility] CenterBacteria identified Cx Nom (Bld)NO GROWTH 5 [facility] CenterA1C with Estimated Average Gluon 24-80-7094Adbyhsw [Mass/Vol]111 mg/dLNormSacred Heart Hospital Physician GroupComment on above:Result Comment: PERFORMED BY: [place] [address] PATHOLOGIST [employer] ATTENDANT ROHIT DONALDSON M.D.Performed By: #### CMP, [id number], A1C WTH eA, CBC, CUU, UA, FE and TIBC, LIPID, BRANDIN #### [facility] [address] [place] [address] [place] #### INSULIN #### [facility] ,Alanine aminotransferase [Enzymatic activity/volume] in Serum or PlasmaOrdered By: Mayco Velasquez on 91-48-9764ORA [Catalytic activity/Vol]26 U/L7-52[facility] FoundationComment on above:Order Comment: FASTING.JKWPerformed By: #### CMP, [id number], A1C WTH eA, CBC, CUU, UA, FE and TIBC, LIPID, BRANDIN ####[facility] [place] [address] [place]#### INSULIN ####[facility] ,Albumin [Mass/volume] in Serum or Plasma by Bromocresol green (BCG) dye binding methoOrdered By: Mayco Velasquez on 11-21-2024 Albumin BCG dye [Mass/Vol]4.7 g/dL3.5-5.7FAshtabula County Medical Center Alkaline phosphatase [Enzymatic activity/volume] in Serum or PlasmaOrdered By: Mayco Velasquez on 08-83-7465HKX [Catalytic activity/Vol]88 U/R43-587MhticqiihCleveland Clinic FoundationComment on above:Order Comment: FASTING.JKWPerformed By: #### CMP, [id number], A1C WTH eA, CBC, CUU, UA, FE and TIBC, LIPID, BRANDIN ####[address]#### INSULIN ####[facility] ,Appearance of UrineOrdered By: Mayco Velasquez on 75-01-3086Blrkufxssu (U)ClearCleMiami Valley HospitalComment on above:Order Comment: Name Collection Type:: Clean-Voided MidstreamPerformed By: #### CMP, [id number], A1C WTH eA, CBC, CUU, UA, FE and TIBC, LIPID, BRANDIN #### [facility] [address] [place] [address] [place] #### INSULIN #### [facility] ,Aspartate aminotransferase [Enzymatic activity/volume] in Serum or Plasma Ordered By: Mayco Velasquez on 51-44-0611CIY [Catalytic activity/Vol]27 U/L13-39 [facility] FoundationComment on above:Order Comment: FASTING.JKW Performed By: #### CMP, [id number], A1C WTH eA, CBC, CUU, UA, FE and TIBC, LIPID, BRANDIN ####[facility] [id number]#### INSULIN ####[facility] ,Basophils [#/volume] in Blood by Automated countOrdered By: Mayco Velasquez on 71-06-4012Jindpjcks (Bld) [#/Vol]0.1 10*3/uL0.0-0.2FAshtabula County Medical CenterComment on above:Result Comment: PERFORMED BY: [place] [address] PATHOLOGIST [employer] ATTENDANT ROHIT DONALDSON M.D.Performed By: #### CMP, [id number], A1C WTH eA, CBC, CUU, UA, FE and TIBC, LIPID, BRANDIN #### [address] #### INSULIN #### [facility] ,Basophils/100 leukocytes in Blood by Automated countOrdered By: Mayco Velasquez on 58-03-3485Lpnkxuszp/100 WBC (Bld)1.3 %.[facility] FoundationComment on above:Performed By: #### CMP, [id number], A1C WTH eA, CBC, CUU, UA, FE and TIBC, LIPID, BRANDIN #### [facility] [address] [place] [address] #### INSULIN #### [facility] ,Bilirubin Test strip Ql (U)Ordered By: Mayco Velasquez on 58-58-7753Qfuehcybn Ql (U)NegativeNegativeCleveland Clinic FoundationBilirubin.total [Mass/volume] in Serum or PlasmaOrdered By: Mayco Velasquez on 99-42-4836Gqbsfmnld [Mass/Vol]0.6 mg/dL0.3-1.0[facility] FoundationComment on above: Order Comment: FASTING.JKWPerformed By: #### CMP, [id number], A1C WTH eA, CBC, CUU, UA, FE and TIBC, LIPID, BRANDIN ####[address]#### INSULIN ####[facility] ,Blood estimated average glucose determination by estimation from glycated hemoglobin Ordered By: Mayco Velasquez on 99-03-8434Dfoiqqo glucose Estimated from glycated hemoglobin (Bld) [Mass/Vol]111 mg/dLCleveland Clinic FoundationCalcium [Mass/volume] in Serum or PlasmaOrdered By: Mayco Velasquez on 61-55-6817Inpwivy [Mass/Vol]9.6 mg/dL8.6-10.3FAshtabula County Medical CenterComment on above: Order Comment: FASTING.JKWPerformed By: #### CMP, [id number], A1C WTH eA, CBC, CUU, UA, FE and TIBC, LIPID, BRANDIN ####[place] [address] [place]#### INSULIN ####[facility] ,Carbon dioxide, total [Moles/volume] in Serum or PlasmaOrdered By: Mayco Velasquez on 19-68-9473WV7 [Moles/Vol]29.7 mmol/L21.0-31.0[facility] Comment on above:Order Comment: FASTING.JKWPerformed By: #### CMP, [id number], A1C WTH eA, CBC, CUU, UA, FE and TIBC, LIPID, BRANDIN ####[place] [address] [place]#### INSULIN ####[facility] ,Chloride [Moles/volume] in Serum or PlasmaOrdered By: Mayco Velasquez on 43-67-1137Kdtzzeoj [Moles/Vol]104 mmol/H59-683IkyeaqhqtCleveland Clinic FoundationComment on above:Order Comment: FASTING.JKWPerformed By: #### CMP, [id number], A1C WTH eA, CBC, CUU, UA, FE and TIBC, LIPID, BRANDIN ####[facility] [address] [place] [id number] [facility]#### INSULIN ####[facility] ,Cholesterol [Mass/volume] in Serum or PlasmaOrdered By: Mayco Velasquez on 22-96-9624Pgtzvqkzrsw [Mass/Vol]146 mg/eF346-693UeyzhmzelCleveland Clinic FoundationComment on above:Chol less than 200 mg/dl low riskChol 201-239 mg/dl borderline riskChol 240 mg/dl and greater high riskOrder Comment: FASTING.JKWResult Comment: Chol less than 200 mg/dl low risk Chol 201-239 mg/dl borderline risk Chol 240 mg/dl and greater high riskPerformed By: #### CMP, [id number], A1C WTH eA, CBC, CUU, UA, FE and TIBC, LIPID, BRANDIN ####[facility]#### INSULIN ####[facility] , Cholesterol in HDL [Mass/volume] in Serum or PlasmaOrdered By: Mayco Velasquez on 99-91-1078Iudfqjelwxf in HDL [Mass/Vol]57 mg/hP98-84ZxwdtybosCleveland Clinic FoundationComment on above:HDL CHOL ATP-III CLASSIFICATION Cardiovascular RiskHDL > or equal to 60 mg/dL LOWHDL < 40 mg/dL HIGHOrder Comment: FASTING.JKWResult Comment: HDL CHOL ATP-III CLASSIFICATION Cardiovascular Risk HDL > or equal to 60 mg/dL LOW HDL < 40 mg/dL HIGHPerformed By: #### CMP, [id number], A1C WTH eA, CBC, CUU, UA, FE and TIBC, LIPID, BRANDIN ####[facility] [place] [address] [place]#### INSULIN ####[facility] ,Cholesterol in LDL Calc [Mass/Vol]Ordered By: Mayco Velasquez on 34-06-7872Jliwyxtzxbt in LDL [Mass/Vol]64 mg/dL0-100[facility] FoundationComment on above:LDL ATP III CLASSIFICATIONLDL less than 100 mg/dL OptimalLDL 100-129 mg/dL Near or above fgdmnsdHTF973-357 mg/dL Borderline highLDL 160-189 mg/dL HighLDL greater than 189 mg/dL Very highCholesterol in VLDL Calc [Mass/Vol]Ordered By: Mayco Velasquez on 38-53-5753Orniporzchq in VLDL [Mass/Vol]25 mg/dLCleveland Clinic FoundationColor of Urine by AutoOrdered By: Mayco Velasquez on 18-26-1632Wccql (U)Light-yellowYellowCleveland Clinic FoundationComment on above:Order Comment: Name Collection Type:: Clean-Voided MidstreamPerformed By: #### CMP, [id number], A1C WTH eA, CBC, CUU, UA, FE and TIBC, LIPID, BRANDIN #### [facility] [address] [place] [address] #### INSULIN #### [facility] ,Complete Blood Count Auto Diffon 00-77-8308Fbpr Corpuscular HGB Conc33.9 g/dL Jbxclc18.0-35.0The [facility] Physician GroupComment on above:Performed By: #### CMP, [id number], A1C WTH eA, CBC, CUU, UA, FE and TIBC, LIPID, BRANDIN #### [facility] [address] [place] [address] [place] #### INSULIN #### [facility] ,NRBC%0.1 /100{WBC}Normal0-0.5The [facility] Physician GroupComment on above: Performed By: #### CMP, [id number], A1C WTH eA, CBC, CUU, UA, FE and TIBC, LIPID, BRANDIN #### [facility] [address] [place] [address] [place] #### INSULIN #### [facility] ,White Blood Count4.8 [CFU]/mLNormal3.8-11.6The [facility] Physician GroupComment on above:Performed By: #### CMP, [id number], A1C WTH eA, CBC, CUU, UA, FE and TIBC, LIPID, BRANDIN #### [facility] [address] [address] #### INSULIN #### [facility] ,Comprehensive Metabolic Panelon 24-03-2976Ufizyrq [Mass/Vol]4.7 g/dLNormal 3.5-5.7The [facility] Physician GroupComment on above:Order Comment: FASTING.JKW Performed By: #### CMP, [id number], A1C WTH eA, CBC, CUU, UA, FE and TIBC, LIPID, BRANDIN ####[address]#### INSULIN ####[facility] ,GFR/1.73 sq M.predicted MDRD (S/P/Bld) [Vol rate/Area]mL/min/{1.73_m2}NormalThe [facility] Physician GroupComment on above:Order Comment: FASTING.JKWPerformed By: #### CMP, [id number], A1C WTH eA, CBC, CUU, UA, FE and TIBC, LIPID, BRANDIN ####[address]#### INSULIN ####[facility] , Creatinine [Mass/volume] in Serum or PlasmaOrdered By: Mayco Velasquez on 68-75-9189Fpcngaqjwk [Mass/Vol]0.65 mg/dL0.60-1.20C[facility] Clinic FoundationComment on above:Order Comment: FASTING.JKWPerformed By: #### CMP, [id number], A1C WTH eA, CBC, CUU, UA, FE and TIBC, LIPID, BRANDIN ####[place] [address] [place]#### INSULIN ####[facility] ,Eosinophils [#/volume] in Blood by Automated count Ordered By: Mayco Velasquez on 75-99-4120Xjvdaqaaqin (Bld) [#/Vol]0.2 10*3/uL 0.0-0.45C[facility] Clinic FoundationComment on above:Performed By: #### CMP, [id number], A1C WTH eA, CBC, CUU, UA, FE and TIBC, LIPID, BRANDIN #### [facility] [address] [place] [address] [place] #### INSULIN #### [facility] ,Eosinophils/100 leukocytes in Blood by Automated countOrdered By: Mayco Velasquez on 25-75-1118Wzgfrusyqjs/100 WBC (Bld)5.2 %.[facility] Comment on above:Performed By: #### CMP, [id number], A1C WTH eA, CBC, CUU, UA, FE and TIBC, LIPID, BRANDIN #### [place] [address] [place] #### INSULIN #### [facility] ,Erythrocyte distribution width [Ratio] by Automated countOrdered By: Mayco Velasquez on 15-76-0970Qlloizfdquz distribution width (RBC) [Ratio]13.2 %11.9-15.3 [facility] FoundationComment on above:Performed By: #### CMP, [id number], A1C WTH eA, CBC, CUU, UA, FE and TIBC, LIPID, BRANDIN #### [facility] [address] [place] [address] [place] #### INSULIN #### [facility] ,Erythrocytes [#/volume] in Blood by Automated countOrdered By: Mayco Velasquez on 71-54-5379BDI (Bld) [#/Vol]5.04 10*6/uLHigh3.60-5.00[facility] Clinic FoundationComment on above:Performed By: #### CMP, [id number], A1C WTH eA, CBC, CUU, UA, FE and TIBC, LIPID, BRANDIN #### [facility] [address] [place] [address] [place] #### INSULIN #### [facility] ,Ferritin [Mass/volume] in Serum or PlasmaOrdered By: Mayco Velasquez on 11-21-2024 Ferritin [Mass/Vol]68.8 ng/mL11.0-306.8[facility] Clinic FoundationComment on above:Order Comment: FASTING.JKWPerformed By: #### CMP, [id number], A1C WTH eA, CBC, CUU, UA, FE and TIBC, LIPID, BRANDIN ####[facility]#### INSULIN ####[facility] , Glomerular filtration rate [Volume Rate/Area] in Serum, Plasma or Blood by CreatinineOrdered By: Mayco Velasquez on 74-61-4167Gazocjrjkq filtration rate [Volume Rate/Area] in Serum, Plasma or Blood by Creatinine> 60.0 mL/MinCleveland Clinic FoundationGlucose [Mass/volume] in Serum or PlasmaOrdered By: Mayco Velasquez on 46-09-9099Gjzkgml [Mass/Vol]99 mg/qB33-494RdquyxuicCleveland Clinic FoundationComment on above:ADA recommended reference rangeRandom Glucose Reference [...] ADA recommended reference rangePerformed By: #### CMP, [id number], A1C WTH eA, CBC, CUU, UA, FE and TIBC, LIPID, BRANDIN ####[facility] [place] [address] [place]#### INSULIN ####[facility] ,Glucose [Mass/volume] in Urine by Test stripOrdered By: Mayco Velasquez on 11-21-2024 Glucose Test strip (U) [Mass/Vol]Normal mg/dLNormalCleveland Clinic FoundationHematocrit [Volume Fraction] of Blood by Automated countOrdered By: Mayco Velasquez on 21-41-3088Zbdewxoajl (Bld) [Volume fraction]42.9 %34.0-46.4FAshtabula County Medical CenterComment on above:Performed By: #### CMP, [id number], A1C WTH eA, CBC, CUU, UA, FE and TIBC, LIPID, BRANDIN #### [facility] [address] [place] [address] [place] #### INSULIN #### [facility] ,Hemoglobin A1c/Hemoglobin.total in BloodOrdered By: Mayco Velasquez on 11-21-2024 HbA1c (Bld) [Mass fraction]5.5 %4.3-5.6FAshtabula County Medical CenterComment on above:Increased risk for diabetes: 5.7 - 6.4diabetes: >6.4glycemic control for adults with diabetes: <7.0Result Comment: Increased risk for diabetes: 5.7 - 6.4 diabetes: >6.4 glycemic control for adults with diabetes: <7.0Performed By: #### CMP, [id number], A1C WTH eA, CBC, CUU, UA, FE and TIBC, LIPID, BRANDIN #### [place] [address] [place] #### INSULIN #### [facility] ,Hemoglobin Test strip Ql (U)Ordered By: Mayco Velasquez on 15-46-6969Vfmlzppqmb Ql (U)NegativeNegativeCleveland Clinic FoundationHemoglobin [Mass/volume] in BloodOrdered By: Mayco Velasquez on 72-85-7599Osmkeubals (Bld) [Mass/Vol]14.5 g/dL 11.8-15.4FAshtabula County Medical CenterComment on above:Performed By: #### CMP, [id number], A1C WTH eA, CBC, CUU, UA, FE and TIBC, LIPID, BRANDIN #### [address] #### INSULIN #### [facility] ,Insulinon 36-12-4804Sdgkepf74.2 u[iU]/mLNormal2.6-24.9The [facility] Physician GroupComment on above:Result Comment: Performed at: [facility] [address] [id number] Trekking Guide: Jourdan Gonzales PhD, Phone: [phone] PERFORMED BY: [facility] [address] [place] [address] PATHOLOGIST [employer]UB ATTENDANT ROHIT DONALDSON M.D.Performed By: #### CMP, [id number], A1C WTH eA, CBC, CUU, UA, FE and TIBC, LIPID, BRANDIN ####[place] [address] [place]#### INSULIN ####[facility] ,Iron [Mass/volume] in Serum or PlasmaOrdered By: Mayco Velasquez on 90-26-7692Regu [Mass/Vol]126 ug/dS77-315YkjbotakxCleveland Clinic FoundationComment on above:Order Comment: FASTING.JKWPerformed By: #### CMP, [id number], A1C WTH eA, CBC, CUU, UA, FE and TIBC, LIPID, BRANDIN ####[place] [address] [place]#### INSULIN ####[facility] ,Iron and TIBC Profileon 11-21-2024% Iron Lzljspsrxp29.8 %Kqtmde48-46Rph [facility] Physician GroupComment on above:Order Comment: FASTING.JKWPerformed By: #### CMP, [id number], A1C WTH eA, CBC, CUU, UA, FE and TIBC, LIPID, BRANDIN ####[place] [address] [place]#### INSULIN ####[facility] ,Total Iron Binding Nuknctqc235 ug/vSXoscon876-721Ewn [facility] Physician GroupComment on above:Order Comment: FASTING.JKWPerformed By: #### CMP, [id number], A1C WTH eA, CBC, CUU, UA, FE and TIBC, LIPID, BRANDIN ####[place] [address] [place]#### INSULIN ####[facility] ,Ketones [Presence] in Urine by Test strip Ordered By: Mayco Velasquez on 52-74-0452Byoldhw Ql (U)NegativeNegKettering Health – Soin Medical CenterComment on above:Order Comment: Name Collection Type:: Clean-Voided MidstreamPerformed By: #### CMP, [id number], A1C WTH eA, CBC, CUU, UA, FE and TIBC, LIPID, BRANDIN #### [place] [address] [place] #### INSULIN #### [facility] ,Leukocyte esterase [Presence] in Urine by Test stripOrdered By: Mayco Velasquez on 00-81-0576Rnhmudjmx esterase Test strip Ql (U)NegativeNegKettering Health – Soin Medical CenterComment on above:Order Comment: Name Collection Type:: Clean-Voided MidstreamPerformed By: #### CMP, [id number], A1C WTH eA, CBC, CUU, UA, FE and TIBC, LIPID, BRANDIN #### [place] [address] [place] #### INSULIN #### [facility] ,Leukocytes [#/volume] corrected for nucleated erythrocytes in Blood by Automated counOrdered By: Mayco Velasquez on 05-47-0751NSO corrected for nucl RBC Auto (Bld) [#/Vol]4.8 10*3/uL3.8-11.6FAshtabula County Medical CenterLeukocytes [#/volume] in Blood by Automated countOrdered By: Mayco Velasquez on 03-12-9071HJN (Bld) [#/Vol]4.8 10*3/uL3.8-11.6FAshtabula County Medical CenterComment on above:Performed By: #### CMP, [id number], A1C WTH eA, CBC, CUU, UA, FE and TIBC, LIPID, BRANDIN #### [facility] [address] [place] [address] [place] #### INSULIN #### [facility] ,Lipid Panelon 56-50-2272MHU Cholesterol,Zzghsthqjw18 mg/dLNormal0-100The [facility] Physician GroupComment on above:Order Comment: FASTING.JKWResult Comment: LDL ATP III CLASSIFICATION LDL less than 100 mg/dL Optimal LDL 100-129 mg/dL Near or above optimal LDL 130-159 mg/dL Borderline high LDL 160-189 mg/dL High LDL greater than 189 mg/dL Very highPerformed By: #### CMP, [id number], A1C WTH eA, CBC, CUU, UA, FE and TIBC, LIPID, BRANDIN ####[place] [address] [address]#### INSULIN ####[facility] , Triglyceride w/Hrvzjs370 mg/dLNormal0-149[facility] Physician GroupComment on above:Order Comment: FASTING.JKWResult Comment: TRIG ATP III CLASSIFICATION TRIG less than 150 mg/dL Normal TRIG 150-199 mg/dL Borderline high TRIG 200-500 mg/dL High TRIG greater than 500 mg/dL Very high Standard traceable to the Center for Disease Conrtrol and Prevention (CDC) test method.Performed By: #### CMP, [id number], A1C WTH eA, CBC, CUU, UA, FE and TIBC, LIPID, BRANDIN ####[address]#### INSULIN ####[facility] ,VLDL GSFNDSNAUXP13 mg/dLNoSloop Memorial Hospital Physician GroupComment on above:Order Comment: FASTING.JKWPerformed By: #### CMP, [id number], A1C WTH eA, CBC, CUU, UA, FE and TIBC, LIPID, BRANDIN ####[place] [address] [place]#### INSULIN ####[facility] ,Lymphocytes [#/volume] in Blood by Automated countOrdered By: Mayco Velasquez on 11-21-2024 Lymphocytes (Bld) [#/Vol]1.9 10*3/uL1.00-4.8[facility] Comment on above:Performed By: #### CMP, [id number], A1C WTH eA, CBC, CUU, UA, FE and TIBC, LIPID, BRANDIN #### [facility] [address] [place] [address] [place] #### INSULIN #### [facility] ,Lymphocytes/100 leukocytes in Blood by Automated countOrdered By: Mayco Velasquez on 63-78-8518Qwfhtqosesq/100 WBC (Bld)39.1 %.[facility] Comment on above:Performed By: #### CMP, [id number], A1C WTH eA, CBC, CUU, UA, FE and TIBC, LIPID, BRANDIN #### [facility] [address] [place] [address] [place] #### INSULIN #### [facility] ,MCH [Entitic mass] by Automated countOrdered By: Mayco Velasquez on 57-00-5104LQW (RBC) [Entitic mass]28.8 pg24.7-34.3FAshtabula County Medical CenterComment on above:Performed By: #### CMP, [id number], A1C WTH eA, CBC, CUU, UA, FE and TIBC, LIPID, BRANDIN #### [place] [address] [place] #### INSULIN #### [facility] ,MCHC Auto (RBC) [Mass/Vol]Ordered By: Mayco Velasquez on 65-09-6921CJYR (RBC) [Mass/Vol]33.9 g/dL32.0-35.0C[facility] Clinic FoundationMCV [Entitic volume] by Automated countOrdered By: Mayco Velasquez on 36-84-9711AME (RBC) [Entitic vol]85.0 gH35-496YsdfigsvnCleveland Clinic FoundationComment on above: Performed By: #### CMP, [id number], A1C WTH eA, CBC, CUU, UA, FE and TIBC, LIPID, BRANDIN #### [facility] [address] [place] [address] [place] #### INSULIN #### [facility] ,Monocytes [#/volume] in Blood by Automated countOrdered By: Macyo Velasquez on 56-18-3787Yyfbtpyqr (Bld) [#/Vol]0.6 10*3/uL0.0-0.8[facility] Clinic FoundationComment on above:Performed By: #### CMP, [id number], A1C WTH eA, CBC, CUU, UA, FE and TIBC, LIPID, BRANDIN #### [facility] [address] [place] [address] [place] #### INSULIN #### [facility] ,Monocytes/100 leukocytes in Blood by Automated countOrdered By: Mayco Velasquez on 29-83-6485Godlhonmr/100 WBC (Bld)12.2 %.[facility] Comment on above:Performed By: #### CMP, [id number], A1C WTH eA, CBC, CUU, UA, FE and TIBC, LIPID, BRANDIN #### [facility] [address] [place] [address] [place] #### INSULIN #### [facility] ,Neutrophils [#/volume] in Blood by Automated countOrdered By: Mayco Velasquez on 22-61-4486Yycltrwokov (Bld) [#/Vol]2.0 10*3/uL1.8-7.7FAshtabula County Medical CenterComment on above:Performed By: #### CMP, [id number], A1C WTH eA, CBC, CUU, UA, FE and TIBC, LIPID, BRANDIN #### [place] [address] [place] #### INSULIN #### [facility] ,Neutrophils/100 leukocytes in Blood by Automated countOrdered By: Mayco Velasquez on 27-72-6760Ulmogzkzoyq/100 WBC (Bld)42.2 %.[facility] Comment on above:Performed By: #### CMP, [id number], A1C WTH eA, CBC, CUU, UA, FE and TIBC, LIPID, BRANDIN #### [place] [address] [place] #### INSULIN #### [facility] ,Nitrite Test strip Ql (U)Ordered By: Mayco Velasquez on 75-52-9074Xjhzwqk Ql (U) NegativeNegativeCleveland Clinic FoundationNo Panel InformationOrdered By: Mayco Velasquez on 70-80-9158Cenwnlni Creatinine Clearance (ChemN/AFAshtabula County Medical CenterNucleated erythrocytes [Presence] in Blood by Automated countOrdered By: Mayco Velasquez on 69-92-1894Ytbkknpso RBC Auto Ql (Bld)0.1 /100{WBC}0-0.5FAshtabula County Medical CenterPlatelet mean volume [Entitic volume] in Blood by Automated countOrdered By: Mayco Velasquez on 11-21-2024 Platelet mean volume (Bld) [Entitic vol]8.1 fL6.3-10.7FAshtabula County Medical CenterComment on above:Performed By: #### CMP, [id number], A1C WTH eA, CBC, CUU, UA, FE and TIBC, LIPID, BRANDIN #### [facility] [address] #### INSULIN #### [facility] ,Platelets [#/volume] in Blood by Automated countOrdered By: Mayco Velasquez on 96-92-1926Cbfazwrjv (Bld) [#/Vol]273 10*3/jM639-166UffqguxenCleveland Clinic FoundationComment on above:Performed By: #### CMP, [id number], A1C WTH eA, CBC, CUU, UA, FE and TIBC, LIPID, BRANDIN #### [facility] [address] [place] [address] [place] #### INSULIN #### [facility] ,Potassium [Moles/volume] in Serum or PlasmaOrdered By: Mayco Velasquez on 84-65-7575Hudhwcrjf [Moles/Vol]4.6 mmol/L3.5-5.1FAshtabula County Medical CenterComment on above:Order Comment: FASTING.JKWPerformed By: #### CMP, [id number], A1C WTH eA, CBC, CUU, UA, FE and TIBC, LIPID, BRANDIN ####[facility] [place] [address] [place]#### INSULIN ####[facility] ,Protein Test strip (U) [Mass/Vol]Ordered By: Mayco Velasquez on 27-96-7303Mrflwhb (U) [Mass/Vol]NegativeNegativeCleveland Clinic FoundationProtein [Mass/volume] in Serum or PlasmaOrdered By: Mayco Velasquez on 47-30-9648Lnovlly [Mass/Vol]6.7 g/dL6.4-8.9[facility] Comment on above:Order Comment: FASTING.JKWPerformed By: #### CMP, [id number], A1C WTH eA, CBC, CUU, UA, FE and TIBC, LIPID, BRANDIN ####[facility]#### INSULIN ####[facility] ,Serum globulin measurement by calculation (mass/volume)Ordered By: Mayco Velasquez on 92-75-7542Mhrpfpfa (S) [Mass/Vol]2.0 g/dLCleveland Clinic FoundationComment on above:Order Comment: FASTING.JKWPerformed By: #### CMP, [id number], A1C WTH eA, CBC, CUU, UA, FE and TIBC, LIPID, BRANDIN ####[place] [address] [place] [address] [place]#### INSULIN ####[facility] ,Serum or plasma albumin/globulin mass ratioOrdered By: Mayco Velasquez on 40-87-6209Jzxlwcf/Globulin [Mass ratio]2.4 {ratio}[facility] FoundationComment on above:Order Comment: FASTING.JKWPerformed By: #### CMP, [id number], A1C WTH eA, CBC, CUU, UA, FE and TIBC, LIPID, BRANDIN ####[place] [address] [place]#### INSULIN ####[facility] ,Serum or plasma anion gap determinationOrdered By: Mayco Velasquez on 66-96-3336Jbnoq gap [Moles/Vol]9.9 mmol/L6.0-15.0C[facility] FoundationComment on above:Order Comment: FASTING.JKWPerformed By: #### CMP, [id number], A1C WTH eA, CBC, CUU, UA, FE and TIBC, LIPID, BRANDIN ####[facility]#### INSULIN ####[facility] ,Serum or plasma insulin measurement (units/volume)Ordered By: Mayco Velasquez on 93-08-3611Sweesgp Qn21.2 u[iU]/mL 2.6-24.9[facility] Clinic FoundationComment on above:Performed at: [facility] [address] [id number] Director: Jourdan Gonzales PhD, Phone: [phone] or plasma iron binding capacity measurement (mass/volume)Ordered By: Mayco Velasquez on 97-19-3692Oshj binding capacity [Mass/Vol]309 ug/rG489-272LjhkjhfymUniversity Hospitals Health Systemerum or plasma iron saturation measurement (mass fraction)Ordered By: Mayco Velasquez on 81-26-8300Mdwn saturation [Mass fraction]40.8 %20-50University Hospitals Health Systemerum or plasma total cholesterol/high density lipoprotein (HDL) cholesterol mass ratOrdered By: Mayco Velasquez on 11-21-2024 Cholesterol.total/Cholesterol in HDL [Mass ratio]2.6 {ratio}<5.0[facility] FoundationComment on above:Order Comment: FASTING.JKWPerformed By: #### CMP, [id number], A1C WTH eA, CBC, CUU, UA, FE and TIBC, LIPID, BRANDIN ####[facility]#### INSULIN ####[facility] ,Sodium [Moles/volume] in Serum or Plasma Ordered By: Mayco Velasquez on 32-26-1957Yxfsec [Moles/Vol]139 mmol/D999-410 [facility] FoundationComment on above:Order Comment: FASTING.JKW Performed By: #### CMP, [id number], A1C WTH eA, CBC, CUU, UA, FE and TIBC, LIPID, BRANDIN ####[address]#### INSULIN ####[facility] ,Specific gravity Test strip (U) [Rel density]Ordered By: Mayco Velasquez on 51-01-8394Khmbgcop gravity (U) [Rel density] 1.0111.001-1.030C[facility] Clinic FoundationTransferrin [Mass/volume] in Serum or PlasmaOrdered By: Mayco Velasquez on 34-24-0130Nnqehnbegyn [Mass/Vol]221 mg/pR754-336FlbmahdadCleveland Clinic FoundationComment on above:Order Comment: FASTING.JKWPerformed By: #### CMP, [id number], A1C WTH eA, CBC, CUU, UA, FE and TIBC, LIPID, BRANDIN ####[address]#### INSULIN ####[facility] ,Triglyceride [Mass/volume] in Serum or PlasmaOrdered By: Mayco Velasquez on 68-98-4548Ziimfrxbhnmm [Mass/Vol]127 mg/dL0-149[facility] FoundationComment on above:TRIG ATP III CLASSIFICATIONTRIG less than 150 mg/dL NormalTRIG 150-199 mg/dL Borderline highTRIG 200-500 mg/dL High TRIG greater than 500 mg/dL Very highStandard traceable to the Center for Disease Conrtrol and Prevention (CDC) test method. Urea nitrogen [Mass/volume] in Serum or PlasmaOrdered By: Mayco Velasquez on 62-27-6907Choh nitrogen [Mass/Vol]9 mg/dL7-25[facility] Comment on above:Order Comment: FASTING.JKWPerformed By: #### CMP, [id number], A1C WTH eA, CBC, CUU, UA, FE and TIBC, LIPID, BRANDIN ####[address]#### INSULIN ####[facility] ,Urinalysison 95-42-7717Qdcbwlclg,UrineNegativeNormalNegativeThe [facility] Physician GroupComment on above:Order Comment: Name Collection Type:: Clean-Voided MidstreamPerformed By: #### CMP, [id number], A1C WTH eA, CBC, CUU, UA, FE and TIBC, LIPID, BRANDIN #### [place] [address] [place] #### INSULIN #### [facility] ,Glucose Ql (U)NormalNormalNormalThe [facility] Physician GroupComment on above: Order Comment: Name Collection Type:: Clean-Voided MidstreamPerformed By: #### CMP, [id number], A1C WTH eA, CBC, CUU, UA, FE and TIBC, LIPID, BRANDIN #### [place] [address] [place] #### INSULIN #### [facility] ,Nitrite,UrineNegativeNormalNegativeThe [facility] Physician GroupComment on above:Order Comment: Name Collection Type:: Clean-Voided MidstreamPerformed By: #### CMP, [id number], A1C WTH eA, CBC, CUU, UA, FE and TIBC, LIPID, BRANDIN #### [address] #### INSULIN #### [facility] ,Occult Blood,UrineNegativeNormalNegativeThe [facility] Physician GroupComment on above:Order Comment: Name Collection Type:: Clean-Voided MidstreamResult Comment: PERFORMED BY: [place] [address] PATHOLOGIST [employer] ATTENDANT ROHIT DONALDSON M.D.Performed By: #### CMP, [id number], A1C WTH eA, CBC, CUU, UA, FE and TIBC, LIPID, BRANDIN #### [place] [address] [place] #### INSULIN #### [facility] ,Protein,UrineNegativeNormalNegativeThe [facility] Physician GroupComment on above:Order Comment: Name Collection Type:: Clean-Voided MidstreamPerformed By: #### CMP, [id number], A1C WTH eA, CBC, CUU, UA, FE and TIBC, LIPID, BRANDIN #### [address] #### INSULIN #### [facility] ,Specificy [place],Urine1.070Uynwjx3.001-1.030The [facility] Comment on above:Order Comment: Name Collection Type:: Clean-Voided Midstream Performed By: #### CMP, [id number], A1C WTH eA, CBC, CUU, UA, FE and TIBC, LIPID, BRANDIN #### [address] #### INSULIN #### [facility] ,Urobilinogen,UrineNormalNormalNormLake County Memorial Hospital - Weste [facility] Physician GroupComment on above:Order Comment: Name Collection Type:: Clean-Voided MidstreamPerformed By: #### CMP, [id number], A1C WTH eA, CBC, CUU, UA, FE and TIBC, LIPID, BRANDIN #### [address] #### INSULIN #### [facility] ,Urine Cultureon 60-26-1160Gmzlhcod identified Cx Nom (U)ORGANISM: Streptococcus gallolyticus (O:STRGAL) [place] Count >100,000 Organism Comments Organism not Routinely Tested for Susceptibilities PERFORMED BY: [place] [address] PATHOLOGIST K[employer] CLUB ATTENDANT ROHIT DONALDSON M.D.NormalGulf Breeze Hospital Physician GroupComment on above: Performed By: #### CMP, [id number], A1C WTH eA, CBC, CUU, UA, FE and TIBC, LIPID, BRANDIN ####[place] [address] [place]#### INSULIN ####[facility] ,Urine cultureOrdered By: Mayco Velasquez on 09-64-7968Wejsgagi identified Cx Nom (U)Streptococcus gallolyticusAbnormal [facility] Clinic FoundationBacteria identified Cx Nom (U)Streptococcus gallolyticusAbrmLancaster Municipal HospitalUrobilinogen Test strip (U) [Mass/Vol]Ordered By: Mayco Velasquez on 96-36-6889Oyytinrugwbz (U) [Mass/Vol] Normal mg/dLNoBethesda North HospitalVitamin D 25 Hydroxy Totalon 24-69-6790Blixikc D 25 Hydroxy Total62.3 ng/zXAizlxj03-053Iny [facility] Physician GroupComment on above:Order Comment: FASTING.JKWResult Comment: VITAMIN D STATUS 25(OH)VITAMIN D RANGE (ng/mL) Deficient <20 Insufficient 20 to <30 Sufficient 30 to 100 Reference: Ligia Moreno, Skylar BALDERAS, et al. Evaluation,treatment, and prevention of vitamin D deficiency; an Endocrine Society clinical practice guideline. JCEM. 2010; 96(7):1911-30. PERFORMED BY: [facility] [address] [place] [address] PATHOLOGIST [employer] ATTENDANT RHOIT DONALDSON M.D.Performed By: #### CMP, [id number], A1C WTH eA, CBC, CUU, UA, FE and TIBC, LIPID, BRANDIN ####[facility] [address]#### INSULIN ####[facility] ,Vitamin D+Metabolites [Mass/volume] in Serum or PlasmaOrdered By: Mayco Velasquez on 34-31-6822Scvzyvf D+Metabolites [Mass/Vol]62.3 ng/rP09-378SzgeqobchCleveland Clinic FoundationComment on above:VITAMIN D STATUS 25(OH)VITAMIN D RANGE (ng/mL) Deficient <20 Insufficient 20 to <59Xanmtmasgc16 to 100Reference: Ligia Moreno, Skylar BALDERAS, et al. Evaluation,treatment, and prevention of vitamin D deficiency; an Endocrine Society clinical practice guideline. JCEM. 2010; 96(7):1911-30.pH of Urine by Test stripOrdered By: Mayco Velasquez on 78-84-7739wC (U)7.5 [pH]5.0-9.0[facility] FoundationComment on above:Order Comment: Name Collection Type:: Clean-Voided MidstreamPerformed By: #### CMP, [id number], A1C WTH eA, CBC, CUU, UA, FE and TIBC, LIPID, BRANDIN #### [facility] [address] #### INSULIN #### [facility] ,MM screening mammo BI w/CADon 90-77-2258EB screening mammo BI w/CADMAGRUDER MEMORIAL [facility] [address] [place] [address] Mammography Report Signed Patient: Suma Scott MR#: [id number] [id number] : 1945 Acct:[id number] Age/Sex: 79 / F Adm Date: 10/19/24 Loc: [place] Room: Type: [facility] Attending Dr: Referral Self Ordering Provider: SELF,REFERRAL Date of Service: 10/19/24 Procedure(s): MM screening mammo BI w/CAD Accession Number(s): ([id number]) MM/MM screening mammo BI w/CAD: SCREENING Copies to: Mayco Velasquez, SELF,REFERRAL CLINICAL DATA: Screening for malignancy. SCREENING MAMMOGRAM [...] mammogram. Impression dictated by: Guy Ponce Jr., DavidOBucky 10/19/2024 8:48 AM Dictation Location: DWS01 Dictated By: uGy Ponce Jr, DO 10/19/24 0847 Signed By: 10/19/24 0848[facility] GroupMammography reportOrdered By: Guy Ponce on [id number] imaging [facility] [address] [place] [address] Mammography Report Signed Patient: Suma Scott MR#: [id number] : 1945 Acct:[id number] Age/Sex: 79 / F Adm Date: 5 Loc: [place] Room: Type: [facility] Attending Dr: Referral Papito Ordering Provider: PAPITO,REFERRAL Date of Service: 10/19/24 Procedure(s): MM screening mammo BI w/CAD Accession Number(s): ([id number]) MM/MM screening mammo BI w/CAD: SCREENING Copies [...] Jr., D.O. 10/19/2024 8:48 AM Dictation Location: DWS01 Dictated By: Guy Ponce Jr, DO 10/19/24 0847 Signed By: 10/19/24 0848 [facility] Clinic FoundationAlanine aminotransferase [Enzymatic activity/volume] in Serum or PlasmaOrdered By: Jenaro Max on 62-25-2188VYM [Catalytic activity/Vol]Alanine aminotransferase [Enzymatic activity/volume] in Serum or Plasma752[facility] FoundationAlbumin [Mass/volume] in Serum or Plasma by Bromocresol green (BCG) dye binding methoOrdered By: Jenaro Max on 89-34-2760Bqfjxxk BCG dye [Mass/Vol]Albumin [Mass/volume] in Serum or Plasma by Bromocresol green (BCG) dye binding metho3.5-5.7FAshtabula County Medical CenterAlkaline phosphatase [Enzymatic activity/volume] in Serum or PlasmaOrdered By: Jenaro Max on 35-95-2850CMU [Catalytic activity/Vol] Alkaline phosphatase [Enzymatic activity/volume] in Serum or Ppbolf46-238 [facility] FoundationAspartate aminotransferase [Enzymatic activity/volume] in Serum or PlasmaOrdered By: Jenaro Max on 17-88-0756KPP [Catalytic activity/Vol]Aspartate aminotransferase [Enzymatic activity/volume] in Serum or Btxnsn72-66RcslejwmzCleveland Clinic FoundationB-Type Natriuretic Peptideon 69-72-7064Vnnetymjqon peptide B (Bld) [Mass/Vol]40.0 pg/mLNormal5-100 [facility] Physician GroupComment on above:Result Comment: PERFORMED BY: [facility] [address] [place] [address] PATHOLOGIST [employer]UB ATTENDANT TAVO JAVED M.D.Performed By: #### LIPASE, HS TROP, CBC, PT, BNP, PTT, HEPATIC, BMP ####[address] [place] [address] USABasic Metabolic Panelon 73-92-5188Sipzf gap [Moles/Vol]12.1 mmol/L Normal6.0-15.0The [facility] Physician GroupComment on above:Performed By: #### LIPASE, HS TROP, CBC, PT, BNP, PTT, HEPATIC, BMP ####[address] [place] [address] USACalcium [Mass/Vol]9.9 mg/dLNormal 8.6-10.3The [facility] Physician GroupComment on above:Performed By: #### LIPASE, HS TROP, CBC, PT, BNP, PTT, HEPATIC, BMP ####[place] [address] USAChloride [Moles/Vol]100 mmol/LWxmoxh41-233Bom [facility] Physician GroupComment on above:Performed By: #### LIPASE, HS TROP, CBC, PT, BNP, PTT, HEPATIC, BMP ####[place] [address] USACO2 [Moles/Vol]27.3 mmol/GBumkqi96.0-31.0The [facility] Physician GroupComment on above:Performed By: #### LIPASE, HS TROP, CBC, PT, BNP, PTT, HEPATIC, BMP ####[place] [address] USACreatinine [Mass/Vol]0.61 mg/dLNormal0.60-1.20The [facility] Physician GroupComment on above:Performed By: #### LIPASE, HS TROP, CBC, PT, BNP, PTT, HEPATIC, BMP ####[place] [address] USACreatinine Clr Calc Txaecgyj48.02NormalThSt. Luke's [facility] Center Physician GroupComment on above:Performed By: #### LIPASE, HS TROP, CBC, PT, BNP, PTT, HEPATIC, BMP ####[place] [address] USAGFR/1.73 sq M.predicted MDRD (S/P/Bld) [Vol rate/Area]mL/min/{1.73_m2}NormalThe [facility] Physician GroupComment on above: Performed By: #### LIPASE, HS TROP, CBC, PT, BNP, PTT, HEPATIC, BMP ####[place] [address] USAGlucose [Mass/Vol]130 mg/iJHrlk28-119Tde [facility] Physician GroupComment on above: Result Comment: Random Glucose Reference Range is dependent on time and content of last meal. Glucose of more than 200 mg/dL in a nonstressed, ambulatory subject supports the diagnosis of Diabetes Mellitus. ADA recommended reference rangePerformed By: #### LIPASE, HS TROP, CBC, PT, BNP, PTT, HEPATIC, BMP ####[address] [place] [address] USAPotassium [Moles/Vol]3.4 mmol/LLow3.5-5.1The [facility] Physician GroupComment on above:Performed By: #### LIPASE, HS TROP, CBC, PT, BNP, PTT, HEPATIC, BMP ####[address] [place] [address] USASodium [Moles/Vol]136 mmol/GWdoklv012-754Oty [facility] Physician Group Comment on above:Performed By: #### LIPASE, HS TROP, CBC, PT, BNP, PTT, HEPATIC, BMP ####[place] [address] [place] Urea nitrogen [Mass/Vol]6 mg/dLLow7-25The [facility] Physician GroupComment on above:Performed By: #### LIPASE, HS TROP, CBC, PT, BNP, PTT, HEPATIC, BMP ####[address] Basophils Auto (Bld) [#/Vol]Ordered By: Jenaro Max on 20-65-2369Eummfiyyp (Bld) [#/Vol]Automated basophil count0.0-0.2FAshtabula County Medical Center Basophils/100 WBC Auto (Bld)Ordered By: Jenaro Max on 07-18-2024 Basophils/100 WBC (Bld)Automated basophil %.[facility] Bilirubin.direct [Mass/volume] in Serum or PlasmaOrdered By: Jenaro Max on 16-88-1547Owuuysghi.direct [Mass/Vol]Bilirubin.direct [Mass/volume] in Serum or Plasma0.03-0.18FAshtabula County Medical CenterBilirubin.total [Mass/volume] in Serum or PlasmaOrdered By: Jenaro Max on 29-77-7481Jtsaqwufc [Mass/Vol] Bilirubin.total [Mass/volume] in Serum or Plasma0.3-1.0[facility] FoundationCT head/brain wo conon 02-70-2378OO head/brain [place] [facility] [address] [place] Scan Report Signed Patient: Suma Scott MR#: [id number] 744 : 1945 Acct:[id number] Age/Sex: 79 / F ADM Date: 07/17/24 Loc: ER Room: Type: [facility] ER Attending Dr: Copies to: Jenaro Max [...] ABNORMALITY. Impression dictated by: Guy Ponce Jr., D.OBucky 07/18/2024 8:16 AM Dictation Location: [place] [address] Transcribed By: [facility] 07/18/24 0816 Dictated By: Guy Ponce Jr, DO 07/18/24 0814 Signed By: 07/18/24 0816[facility] Physician GroupCalcium [Mass/volume] in Serum or PlasmaOrdered By: Jenaro Max on 86-80-3199Tqqjohb [Mass/Vol]Calcium [Mass/volume] in Serum or Plasma8.6-10.3FAshtabula County Medical CenterCarbon dioxide, total [Moles/volume] in Serum or PlasmaOrdered By: Jenaro Max on 45-18-5233CV5 [Moles/Vol]Carbon dioxide, total [Moles/volume] in Serum or Plasma 21.0-31.0[facility] FoundationChloride [Moles/volume] in Serum or PlasmaOrdered By: Jenaro Max on 48-94-6054Hdtyqbtq [Moles/Vol]Chloride [Moles/volume] in Serum or Djqutp05-544AclkjabpdCleveland Clinic FoundationComplete Blood Count Auto Diffon 40-10-4744Beliwnzex (Bld) [#/Vol]0.0 10*3/uLNormal 0.0-0.2The [facility] Physician GroupComment on above:Result Comment: PERFORMED BY: [address] [place] [address] PATHOLOGIST KID CLUB ATTENDANT TAVO JAVED M.D.Performed By: #### LIPASE, HS TROP, CBC, PT, BNP, PTT, HEPATIC, BMP ####[place] [address] USABasophils/100 WBC (Bld)0.7 %Normal.The [facility] Physician Group Comment on above:Performed By: #### LIPASE, HS TROP, CBC, PT, BNP, PTT, HEPATIC, BMP ####[place] [address] [place] Eosinophils (Bld) [#/Vol]0.2 10*3/uLNormal0.0-0.45The [facility] Physician Group Comment on above:Performed By: #### LIPASE, HS TROP, CBC, PT, BNP, PTT, HEPATIC, BMP ####[place] [address] [place] Eosinophils/100 WBC (Bld)3.2 %Normal.The [facility] Physician GroupComment on above:Performed By: #### LIPASE, HS TROP, CBC, PT, BNP, PTT, HEPATIC, BMP ####[address] Erythrocyte distribution width (RBC) [Ratio]12.8 %Fdfklh75.9-15.3The [facility] Physician GroupComment on above:Performed By: #### LIPASE, HS TROP, CBC, PT, BNP, PTT, HEPATIC, BMP ####[place] [address] USAHematocrit (Bld) [Volume fraction]40.8 %Normal 34.0-46.4The [facility] Physician GroupComment on above:Performed By: #### LIPASE, HS TROP, CBC, PT, BNP, PTT, HEPATIC, BMP ####[place] [address] USAHemoglobin (Bld) [Mass/Vol]14.1 g/dL Geajpu97.8-15.4The [facility] Physician GroupComment on above:Performed By: #### LIPASE, HS TROP, CBC, PT, BNP, PTT, HEPATIC, BMP ####[place] [address] USALymphocytes (Bld) [#/Vol]2.2 10*3/uL Normal1.00-4.8The [facility] Physician GroupComment on above:Performed By: #### LIPASE, HS TROP, CBC, PT, BNP, PTT, HEPATIC, BMP ####[place] [address] USALymphocytes/100 WBC (Bld)37.3 %Normal. The [facility] Physician GroupComment on above:Performed By: #### LIPASE, HS TROP, CBC, PT, BNP, PTT, HEPATIC, BMP ####[address] (RBC) [Entitic mass]29.2 gkEjjxuv06.7-34.3 [facility] Physician GroupComment on above:Performed By: #### LIPASE, HS TROP, CBC, PT, BNP, PTT, HEPATIC, BMP ####[address] (RBC) [Entitic vol]84.5 gPFirksh81-307Wip [facility] Physician GroupComment on above:Performed By: #### LIPASE, HS TROP, CBC, PT, BNP, PTT, HEPATIC, BMP ####[id number] USAMean Corpuscular HGB Conc34.6 g/jKKedryp08.0-35.0The [facility] Physician GroupComment on above:Performed By: #### LIPASE, HS TROP, CBC, PT, BNP, PTT, HEPATIC, BMP ####[place] [address] USAMonocytes (Bld) [#/Vol]0.7 10*3/uLNormal0.0-0.8The [facility] Physician GroupComment on above:Performed By: #### LIPASE, HS TROP, CBC, PT, BNP, PTT, HEPATIC, BMP ####[place] [address] USAMonocytes/100 WBC (Bld)17.93 %Normal0.00-20.00The [facility] Physician GroupComment on above:Performed By: #### LIPASE, HS TROP, CBC, PT, BNP, PTT, HEPATIC, BMP ####[place] [address] USAMonocytes/100 WBC (Bld)12.1 %Normal.The [facility] Physician GroupComment on above:Performed By: #### LIPASE, HS TROP, CBC, PT, BNP, PTT, HEPATIC, BMP ####[place] [address] USANeutrophils (Bld) [#/Vol]2.8 10*3/uLNormal1.8-7.7The [facility] Physician GroupComment on above:Performed By: #### LIPASE, HS TROP, CBC, PT, BNP, PTT, HEPATIC, BMP ####[address] USANeutrophils/100 WBC (Bld)46.7 %Normal.The [facility] Physician GroupComment on above:Performed By: #### LIPASE, HS TROP, CBC, PT, BNP, PTT, HEPATIC, BMP ####[place] [address] USANRBC%0.1 /100{WBC}Normal0-0.5The [facility] Physician GroupComment on above:Performed By: #### LIPASE, HS TROP, CBC, PT, BNP, PTT, HEPATIC, BMP ####[place] [address] USAPlatelet mean volume (Bld) [Entitic vol]8.0 fLNormal6.3-10.7The [facility] Physician GroupComment on above:Performed By: #### LIPASE, HS TROP, CBC, PT, BNP, PTT, HEPATIC, BMP ####[place] [address] USAPlatelets (Bld) [#/Vol]252 10*3/jEBnmmbz224-195Tcf [facility] Physician GroupComment on above:Performed By: #### LIPASE, HS TROP, CBC, PT, BNP, PTT, HEPATIC, BMP ####[place] [address] USARBC (Bld) [#/Vol]4.83 10*6/uLNormal3.60-5.00The [facility] Physician GroupComment on above:Performed By: #### LIPASE, HS TROP, CBC, PT, BNP, PTT, HEPATIC, BMP ####[place] [address] USAWBC (Bld) [#/Vol]5.9 10*3/uLNormal3.8-11.6The [facility] Physician GroupComment on above:Performed By: #### LIPASE, HS TROP, CBC, PT, BNP, PTT, HEPATIC, BMP ####[place] [address] USACreatinine [Mass/volume] in Serum or PlasmaOrdered By: Jenaro Max on 52-15-4848Ucjpovudeh [Mass/Vol]Creatinine [Mass/volume] in Serum or Plasma0.60-1.20[facility] FoundationECG 12 lead ECGon 40-24-0991ZXX 12 lead ECGMIAM[facility] [place] [address] [place] [address] Electrocardiograph Report Signed Patient: Suma Scott MR#: [id number] 744 : 1945 Acct:[id number] Age/Sex: 79 / F ADM Date: 07/17/24 Loc: ER Room: Type: [facility] ER Attending Dr: Ordering Provider: Jenaro Max [...] abnormality Abnormal ECG Confirmed by Rosenda Carmona ([id number]) on 07/20/2024 10:56:03 AM Referred By: Electronically Signed By: Rosenda Carmona Transcribed By: MUS Signed By Rosenda Carmona MD [address] [place] [address] Physician GroupEosinophils Auto (Bld) [#/Vol]Ordered By: Jenaro Max on 39-59-0453Ujmvrqavhgr (Bld) [#/Vol]Automated eosinophil count0.0-0.45[facility] FoundationEosinophils/100 WBC Auto (Bld) Ordered By: Jenaro Max on 44-89-4160Tnmnehqwwgk/100 WBC (Bld)Automated eosinophil %.[facility] FoundationErythrocyte distribution width Auto (RBC) [Ratio]Ordered By: Jenaro Max on 65-37-4092Hksvdgcdlxw distribution width (RBC) [Ratio]Erythrocyte distribution width [Ratio] by Automated count11.9-15.3FAshtabula County Medical CenterGlobulin Calc (S) [Mass/Vol]Ordered By: Jenaro Max on 66-77-9213Ubvasiuc (S) [Mass/Vol]Serum globulin measurement by calculation (mass/volume)[facility] FoundationGlucose [Mass/volume] in Serum or PlasmaOrdered By: Jenaro Max on 86-88-8235Mjavysq [Mass/Vol]Glucose [Mass/volume] in Serum or SokaceUqan65-931 [facility] FoundationComment on above:ADA recommended reference rangeRandom Glucose Reference Range is dependent on time and content of last meal. Glucose of more than 200 mg/dL in a nonstressed, ambulatory subject supports the diagnosisof Diabetes Mellitus.Hematocrit Auto (Bld) [Volume fraction]Ordered By: Jenaro Max on 92-19-2994Bixbtgchqv (Bld) [Volume fraction]Hematocrit [Volume Fraction] of Blood by Automated count34.0-46.4 [facility] FoundationHemoglobin [Mass/volume] in BloodOrdered By: Jenaro Max on 06-05-9119Sgzugmfnhl (Bld) [Mass/Vol]Hemoglobin [Mass/volume] in Blood11.8-15.4FAshtabula County Medical CenterHepatic Panelon 08-08-0301Sapjxyy [Mass/Vol]4.8 g/dLNormal3.5-5.7The [facility] Physician Group Comment on above:Performed By: #### LIPASE, HS TROP, CBC, PT, BNP, PTT, HEPATIC, BMP ####[address] Albumin/Globulin [Mass ratio]2.5 {ratio}NormalThe [facility] Physician [facility] Comment on above:Performed By: #### LIPASE, HS TROP, CBC, PT, BNP, PTT, HEPATIC, BMP ####[id number] USAALP [Catalytic activity/Vol]64 U/WUteurw05-171Uyi [facility] Physician [facility] HospitalComment on above:Performed By: #### LIPASE, HS TROP, CBC, PT, BNP, PTT, HEPATIC, BMP ####[address] USAALT [Catalytic activity/Vol]38 U/LNormal7-52The [facility] Physician [facility] HospitalComment on above:Performed By: #### LIPASE, HS TROP, CBC, PT, BNP, PTT, HEPATIC, BMP ####[place] [address] [address] USAAST [Catalytic activity/Vol]31 U/PGjxsze67-93Smu [facility] Physician [facility] HospitalComment on above:Performed By: #### LIPASE, HS TROP, CBC, PT, BNP, PTT, HEPATIC, BMP ####[address] Bilirubin [Mass/Vol]0.6 mg/dLNormal0.3-1.0The [facility] Physician GroupComment on above:Performed By: #### LIPASE, HS TROP, CBC, PT, BNP, PTT, HEPATIC, BMP ####[address] Bilirubin,Indirect0.5 mg/dLNormLake County Memorial Hospital - Weste [facility] Physician [facility] HospitalComment on above: Performed By: #### LIPASE, HS TROP, CBC, PT, BNP, PTT, HEPATIC, BMP ####[address] Bilirubin.indirect [Mass/Vol]0.10 mg/dLNormal0.03-0.18The [facility] Physician GroupComment on above:Performed By: #### LIPASE, HS TROP, CBC, PT, BNP, PTT, HEPATIC, BMP ####[address]Globulin (S) [Mass/Vol]1.9 g/dLNormLake County Memorial Hospital - Weste [facility] Physician Group Comment on above:Performed By: #### LIPASE, HS TROP, CBC, PT, BNP, PTT, HEPATIC, BMP ####[address] Protein [Mass/Vol]6.7 g/dLNormal6.4-8.9The [facility] Physician [facility] HospitalComment on above:Performed By: #### LIPASE, HS TROP, CBC, PT, BNP, PTT, HEPATIC, BMP ####[place] [address] USAINR in Platelet poor plasma by Coagulation assayOrdered By: Jenaro Max on 37-63-3674ZDW Coag (PPP) [Relative time]INR in Platelet poor plasma by Coagulation assayCleveland Clinic FoundationComment on above:INR Therapeutic Range A) Pre- and [...] by Automated counOrdered By: Jenaro Max on 29-07-2997DHE corrected for nucl RBC Auto (Bld) [#/Vol]Leukocytes [#/volume] corrected for nucleated erythrocytes in Blood by Automated coun3.8-11.6FAshtabula County Medical CenterLipaseon 07-18-2024 Lipase [Catalytic activity/Vol]28.0 U/TZpshqh51.0-82.0The [facility] Physician GroupComment on above:Result Comment: PERFORMED BY: [facility] [address] [place] [address] PATHOLOGIST [employer] ATTENDANT TAVO JAVED M.D.Performed By: #### LIPASE, HS TROP, CBC, PT, BNP, PTT, HEPATIC, BMP ####[facility] [place] [address] USALipase [Enzymatic activity/volume] in Serum or PlasmaOrdered By: Jenaro Max on 91-21-5368Ivjxhc [Catalytic activity/Vol]Lipase [Enzymatic activity/volume] in Serum or Gpyrht10.0-82.0[facility] Lymphocytes Auto (Bld) [#/Vol]Ordered By: Jenaro Max on 07-18-2024 Lymphocytes (Bld) [#/Vol]Lymphocytes [#/volume] in Blood by Automated count 1.00-4.8[facility] FoundationLymphocytes/100 WBC Auto (Bld)Ordered By: Jenaro Max on 64-63-0371Kupynykwsbz/100 WBC (Bld)Lymphocytes/100 leukocytes in Blood by Automated count.[facility] HospitalH Auto (RBC) [Entitic mass]Ordered By: Jenaro Max on 31-66-9722BTJ (RBC) [Entitic mass]MCH [Entitic mass] by Automated count24.7-34.3FAshtabula County Medical CenterMCHC Auto (RBC) [Mass/Vol]Ordered By: Jenaro Max on 95-08-7109EVED (RBC) [Mass/Vol]MCHC [Mass/volume] by Automated count32.0-35.0 [facility] FoundationMCV Auto (RBC) [Entitic vol]Ordered By: Jenaro Max on 14-69-7395FSW (RBC) [Entitic vol]MCV [Entitic volume] by Automated -956TurztvdgfCleveland Clinic FoundationMonocyte distribution width [Entitic volume] in Blood by AutomatedOrdered By: Jenaro Max on 83-11-2678Hprmpggd distribution width Auto (Bld) [Entitic vol]Monocyte distribution width [Entitic volume] in Blood by Automated0.00-20.00[facility] Monocytes Auto (Bld) [#/Vol]Ordered By: Jenaro Max on 83-23-1788Zuzujbqij (Bld) [#/Vol]Automated blood monocyte count0.0-0.8[facility] FoundationMonocytes/100 WBC Auto (Bld)Ordered By: Jenaro Max on 07-18-2024 Monocytes/100 WBC (Bld)Automated monocyte %.[facility] Natriuretic peptide B [Mass/Vol]Ordered By: Jenaro Max on 07-18-2024 Natriuretic peptide B (Bld) [Mass/Vol]BNP ser/plas5-100[facility] FoundationNeutrophils Auto (Bld) [#/Vol]Ordered By: Jenaro Max on 60-12-3430Uoefdwtyuyb (Bld) [#/Vol]Neutrophils [#/volume] in Blood by Automated count1.8-7.7FAshtabula County Medical CenterNeutrophils/100 WBC Auto (Bld) Ordered By: Jenaro Max on 77-78-8207Wfwejemezsb/100 WBC (Bld)Automated neutrophil %.[facility] FoundationNo Panel InformationOrdered By: Jenaro Max on 45-95-8274Solowtxcv GFR (CKD-EPI)> 60.0 mL/MinCleveland Clinic FoundationPharmacy Creatinine Clearance (Chem54.02[facility] FoundationNucleated erythrocytes [Presence] in Blood by Automated countOrdered By: Jenaro Max on 47-63-6704Dityyshuo RBC Auto Ql (Bld) Nucleated erythrocytes [Presence] in Blood by Automated count0-0.5FAshtabula County Medical CenterPartial Thromboplastin Timeon 08-45-9001cOSM Coag (Bld) [Time]28.7 tVvunbq73.1-36.5The [facility] Physician GroupComment on above:Result Comment: A hematocrit value greater than 55% may lead to inaccurate results in coagulation testing. Patients having hematocrit values >55% require a special collection tube for coagulation studies. Please contact the laboratory at [phone] for redraw instructions. PERFORMED BY: [facility] [address] [place] [address] PATHOLOGIST K[employer] CL[employer] ATTENDANT TAVO JAVED M.D.Performed By: #### LIPASE, HS TROP, CBC, PT, BNP, PTT, HEPATIC, BMP ####[facility] [address] [place] [address] USAPlatelet mean volume Auto (Bld) [Entitic vol]Ordered By: Jenaro Max on 72-24-2250Aybmwqjf mean volume (Bld) [Entitic vol]Platelet mean volume [Entitic volume] in Blood by Automated count6.3-10.7FAshtabula County Medical CenterPlatelets Auto (Bld) [#/Vol]Ordered By: Jenaro Max on 54-77-0464Nzigccssi (Bld) [#/Vol]Platelets [#/volume] in Blood by Automated -344KacbpdwciCleveland Clinic FoundationPotassium [Moles/volume] in Serum or PlasmaOrdered By: Jenaro Max on 34-65-9240Iiuwdofhe [Moles/Vol] Potassium [Moles/volume] in Serum or PlasmaLow3.5-5.1FAshtabula County Medical CenterProtein [Mass/volume] in Serum or PlasmaOrdered By: Jenaro Max on 65-04-1906Tbqtpto [Mass/Vol]Protein [Mass/volume] in Serum or Plasma6.4-8.9 [facility] FoundationProthrombin Time INRon 52-99-5776PSU Coag (PPP) [Relative time]0.9 {INR}NormalThe [facility] Physician GroupComment on above: Result Comment: INR Therapeutic Range [...] TROP, CBC, PT, BNP, PTT, HEPATIC, BMP ####[address] [place] [address] USAPT Coag (PPP) [Time]10.8 sNormal 9.0-12.9The [facility] Physician GroupComment on above:Result Comment: A hematocrit value greater than 55% may lead to inaccurate results in coagulation testing. Patients having hematocrit values >55% require a special collection tube for coagulation studies. Please contact the laboratory at [phone] for redraw instructions.Performed By: #### LIPASE, HS TROP, CBC, PT, BNP, PTT, HEPATIC, BMP ####[address] [place] [address] [facility] Prothrombin time (PT)Ordered By: Jenaro Max on 10-76-5400LE Coag (PPP) [Time]Prothrombin time (PT)9.0-12.9[facility] FoundationComment on above:A hematocrit value greater than 55% may lead to inaccurate results in coagulation testing. Patientshaving hematocrit values >55% require a special collection tube for coagulation studies. Please contact the laboratory at [phone] for redraw instructions.RBC Auto (Bld) [#/Vol]Ordered By: Jenaro Max on 45-56-7381TLZ (Bld) [#/Vol]Erythrocytes [#/volume] in Blood by Automated count3.60-5.00[facility] Health Systemerum or plasma albumin/globulin mass ratioOrdered By: Jenaro Max on 07-18-2024 Albumin/Globulin [Mass ratio]Serum or plasma albumin/globulin mass ratio [facility] Systemerum or plasma anion gap determinationOrdered By: Jenaro Max on 84-27-4455Qxctw gap [Moles/Vol]Serum or plasma anion gap determination6.0-15.0[facility] Health Systemerum or plasma non- glucuronidated bilirubin measurement (mass/volume)Ordered By: Jenaro Max on 34-70-2918Kdeivmhge.indirect [Mass/Vol]Serum or plasma non-glucuronidated bilirubin measurement (mass/volume)[facility] Health Systemodium [Moles/volume] in Serum or PlasmaOrdered By: Jenaro Max on 07-18-2024 Sodium [Moles/Vol]Sodium [Moles/volume] in Serum or Lyfvsj126-891MzeltquwhCleveland Clinic FoundationTroponin I High Sensitivityon 46-60-6766Xailbtgx I High Pjtjiootabf1Tmfbme5-67Awl [facility] Physician GroupComment on above:Result Comment: The Troponin units of report have been changed to meet the Chest Pain Accreditation requirement, element EC5.M1l2. Troponin units are changed from pg/ml to ng/L. Also, the decimal is removed and results are in whole numbers. PERFORMED BY: [facility] [address] [place] [address] PATHOLOGIST [employer] CL[employer] ATTENDANT TAVO JAVED M.D.Performed By: #### LIPASE, HS TROP, CBC, PT, BNP, PTT, HEPATIC, BMP ####[facility] [place] [address] USATroponin I.cardiac [Mass/volume] in Serum or Plasma by Detection limit <= 0.01 ng/Ordered By: Jenaro Max on 02-06-1798Ndbdnvlr I.cardiac DL <= 0.01 ng/mL [Mass/Vol]Troponin I.cardiac [Mass/volume] in Serum or Plasma by Detection limit <= 0.01 ng/0-15[facility] FoundationComment on above:The Troponin units of report have been changed to meet the Chest Pain Accreditation requirement, element EC5.M1l2. Troponin units are changed from pg/ml to ng/L. Also, the decimal is removed and results are in whole numbers. Urea nitrogen [Mass/volume] in Serum or PlasmaOrdered By: Jenaro Max on 86-77-8243Zxvi nitrogen [Mass/Vol]Urea nitrogen [Mass/volume] in Serum or Plasma Low7-25[facility] FoundationWBC Auto (Bld) [#/Vol]Ordered By: Jenaro Max on 01-07-3877LFD (Bld) [#/Vol]Leukocytes [#/volume] in Blood by Automated count3.8-11.6FAshtabula County Medical CenterXR chest 1V portableon 02-93-7858AY chest [facility] [place] [address] [place] [address] XRay Report Signed Patient: Suma Scott MR#: [id number] 744 : 1945 Acct:[id number] Age/Sex: 79 / F ADM Date: 07/17/24 Loc: ER Room: Type: [facility] ER Attending Dr: Copies to: Jenaro Max [...] Jr., D.OBucky 07/18/2024 8:14 AM Dictation Location: [place] [address] Transcribed By: [facility] 07/18/24 0814 Dictated By: Guy Ponce Jr, DO 07/18/24 0813 Signed By: 07/18/24 0814[facility] Physician GroupaPTT in Platelet poor plasma by Coagulation assayOrdered By: Jenaro Max on 37-08-0598kHKC Coag (PPP) [Time]Activated partial thromboplastin time (aPTT) in platelet poor plasma by coagulation a25.1-36.5FAshtabula County Medical CenterComment on above:A hematocrit value greater than 55% may lead to inaccurate results in coagulation testing. Patientshaving hematocrit values >55% require a special collection tube for coagulation studies. Please contact the laboratory at [phone] for redraw instructions.ECG 12 lead ECGon 18-82-0183XZI 12 lead [facility] Main [place] [id number] Electrocardiograph Report Signed Patient: Suma Scott MR#: [id number] 744 : 1945 Acct:[id number] Age/Sex: 79 / F ADM Date: 07/17/24 Loc: ER Room: Type: [facility] ER Attending Dr: Ordering Provider: Jenaro [...] sinus rhythm Confirmed by Jenaro Max DO ([id number]) on 07/18/2024 1:08:16 AM Referred By: Electronically Signed By: Jenaro Max DO Transcribed By: MUS Signed By Jenaro Max DO 0108[facility] Physician GroupCNOVon 06-09-7378SWGGIvcpzd Visit (PLAFVW) SUMA SCOTT ([id number]) 1945 F Date Time Provider Department 06/08/24 2:30 PM MEJIA JOHN PLAFVW During your visit today, we recorded the [...] Past Histories independently gathered by the clinical credit support counselor and the remaining scribed note accurately describes [...] FOLLOW UP VISIT RELATED TO ORIGINAL PX [84468] Encounter Status:Closed by MEJIA JOHN on 06/08/24[facility] [id number] (PSMBHT) SUMA SCOTT ([id number]) 1945 F Date Time Provider Department 06/01/24 MEJIA JOHN [facility] During your visit today, we recorded the following information about you: Tania Fernandez 06/01/2024 12:18 PM Signed Please call patient. She said her appointment was cancelled for tomorrow. She is post op and needs stitches removed. She is rescheduled 06/08 in [place] but prefers to come to [facility]. She is asking if it is safe to leave stitches in that long and can someone please call patient. [phone]. Anabell Felder, RN 06/01/2024 2:14 PM Signed Returned patient call and assisted if I could schedule her a nursing visit to have sutures removed but informed patient she will need to continue to keep the follow up with Meija in [place] to review the surgical site. Patient said [...] know she can upload a photo on Patient Feed once sutures are removed if she has [...] 05/19/2024 Encounter Status:Closed by ANABELL FELDER on 06/01/24[facility] POSTPROC EVALon [id number] POSTPROC EVALHNO ID: [id number] Author: KARTIK YE MD Service: Pain Management Author Type: Anesthesiologist Type: Anesthesia Postprocedure Evaluation Filed: 05/20/2024 11:55 Note Text: POST ANESTHESIA EVALUATION NOTE : 1945 Procedure Summary Date: 05/20/24 Room / Location: MM ASCOR03 / [facility] Anesthesia Start: 739 Anesthesia Stop: 813 Procedure: [...] May 20, 2024 TIME: 11:55 AM CSN: [id number] [facility] PRE-OPon 05-20-2024 ANES PRE-OPHNO ID: [id number] Author: KARTIK YE MD Service: Pain Management [...] SIGNATURE: Kartik Ye MD PATIENT NAME: Suma J Sonia DATE: May 20, 2024 TIME: 7:06 AM CSN: [id number] [facility] City Hospital [id number] Telephone (PLASMN) SUMA SCOTT ([id number]) 1945 F Date Time Provider Department 05/20/24 MEJIA MERAZ During your visit today, we recorded the following information about you: Rosa Maria Huang 05/20/2024 9:56 AM Signed [facility] calling, they state that patient is already on Klonopin 0.5mg takes 1-2 at bedtime and 1 in the morning as needed. Do you still want them to fill the prescription for the percocet? Please advise [phone] Rosa Maria Huang 05/20/2024 11:40 AM Signed Mejia Meraz MD You13 minutes ago (11:03 AM) Yes, please fill Percocet. Patient can use it as needed. Rosa Maria Huang 05/20/2024 11:40 AM Signed Pharmacy notified. Allergies As of Date: 05/20/2024 (No Known Allergies) Date Reviewed: 05/20/2024 Reviewed by: Isaura Fowler RN - Fully Assessed Prescriptions as of [...] Encounter Status:Closed by ROSA MARIA HUANG on 05/20/24[facility] PROlee ann [id number] [facility] ID: [id number] Author: ISAURA FOWLER RN Service: Nursing Author [...] Signed By: Isaura Fowler RN In Department: [facility] HospitalN[facility]SING PROJAMESNO ID: [id number] Author: PEPPER VERGARA RN Service: ? 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 Author Type: Nurse Practitioner Type: [...] large neck Non-male patient STOP-Bang Score: 3 [id number] Score: Age: >=75 Sex: female CHF history: No Hypertension history: Yes Stroke/TIA/thromboembolism history: No Vascular disease history: No Diabetes history: No [id number]-PBYu Score: 4 ARISCAT Score: Age: 51-80 Preoperative [...] Seizures Respiratory: No h (more content not included)...NormalSelect Medical [facility] A1C with Estimated Average Gluon 48-33-3522Qelubfb [Mass/Vol]108 mg/dLNormalThSt. Luke's Boise Medical Center Physician GroupComment on above:Result Comment: PERFORMED BY: [place] [address] PATHOLOGIST KID CLUB ATTENDANT TAVO JAVED M.D.Performed By: #### [id number], TSH3, CMP, A1C WTH eA, LIPID, CBC, BRANDIN, FE and TIBC ####[address]#### INSULIN ####[facility] ,HbA1c (Bld) [Mass fraction]5.4 %Normal4.3-5.6ThSt. Luke's Boise Medical Center Physician GroupComment on above: Result Comment: Increased risk for diabetes: 5.7 - 6.4 diabetes: >6.4 glycemic control for adults with diabetes: <7.0Performed By: #### [id number], TSH3, CMP, A1C WTH eA, LIPID, CBC, BRANDIN, FE and TIBC ####[address]#### INSULIN ####[facility] ,Alanine aminotransferase [Enzymatic activity/volume] in Serum or PlasmaOrdered By: Mayco Velasquez on 59-11-2537VVM [Catalytic activity/Vol]Alanine aminotransferase [Enzymatic activity/volume] in Serum or Plasma7[facility] FoundationAlbumin [Mass/volume] in Serum or Plasma by Bromocresol green (BCG) dye binding methoOrdered By: Mayco Velasquez on 33-06-9601Xdxnnto BCG dye [Mass/Vol]Albumin [Mass/volume] in Serum or Plasma by Bromocresol green (BCG) dye binding metho3.5-5.7FAshtabula County Medical CenterAlkaline phosphatase [Enzymatic activity/volume] in Serum or PlasmaOrdered By: Mayco Velasquez on 74-68-3466EZL [Catalytic activity/Vol]Alkaline phosphatase [Enzymatic activity/volume] in Serum or Qqrrkm49-856YtnhtpsmpCleveland Clinic Foundation Aspartate aminotransferase [Enzymatic activity/volume] in Serum or PlasmaOrdered By: Mayco Velasquez on 64-96-9539UBU [Catalytic activity/Vol]Aspartate aminotransferase [Enzymatic activity/volume] in Serum or Ckwhwz30-10EufzvlegoCleveland Clinic FoundationBasophils Auto (Bld) [#/Vol]Ordered By: Mayco Velasquez on 58-55-7164Vpuqwtshu (Bld) [#/Vol]Automated basophil count0.0-0.2FAshtabula County Medical CenterBasophils/100 WBC Auto (Bld)Ordered By: Mayco Velasquez on 30-01-6241Xxhwbgxnu/100 WBC (Bld)Automated basophil %.[facility] Clinic FoundationBilirubin.total [Mass/volume] in Serum or PlasmaOrdered By: Mayco Velasquez on 86-88-3203Zpxqxpwlw [Mass/Vol]Bilirubin.total [Mass/volume] in Serum or Plasma0.3-1.0[facility] FoundationBlood estimated average glucose determination by estimation from glycated hemoglobinOrdered By: Mayco Velasquez on 30-57-9782Yiofqsl glucose Estimated from glycated hemoglobin (Bld) [Mass/Vol] Glucose mean value [Mass/volume] in Blood Estimated from glycated hemoglobin [facility] FoundationCalcium [Mass/volume] in Serum or PlasmaOrdered By: Mayco Velasquez on 19-04-5028Azhxdzs [Mass/Vol]Calcium [Mass/volume] in Serum or Plasma8.6-10.3FAshtabula County Medical CenterCarbon dioxide, total [Moles/volume] in Serum or PlasmaOrdered By: Mayco Velasquez on 00-10-4483PV4 [Moles/Vol]Carbon dioxide, total [Moles/volume] in Serum or ZcvwtcEqxk97.0-31.0 [facility] FoundationChloride [Moles/volume] in Serum or Plasma Ordered By: Mayco Velasquez on 67-99-0466Tktwrvqj [Moles/Vol]Chloride [Moles/volume] in Serum or Rojuja79-207WpmpalhimCleveland Clinic Foundation Cholesterol [Mass/volume] in Serum or PlasmaOrdered By: Mayco Velasquez on 23-49-4647Fkhhsjftjbo [Mass/Vol]Cholesterol [Mass/volume] in Serum or PlasmaLow 140-200C[facility] Clinic FoundationComment on above:Chol less than 200 mg/dl low riskChol 201-239 mg/dl borderline riskChol 240 mg/dl and greater high riskCholesterol in HDL [Mass/volume] in Serum or PlasmaOrdered By: Mayco Velasquez on 64-13-4890Vsvudlipyvw in HDL [Mass/Vol]Serum or plasma high density lipoprotein (HDL) cholesterol otijlpdttzc12-54YmruchgadCleveland Clinic Foundation Comment on above:HDL CHOL ATP-III CLASSIFICATION Cardiovascular RiskHDL > or equal to 60 mg/dL LOWHDL < 40 mg/dL HIGHCholesterol in LDL Calc [Mass/Vol] Ordered By: Mayco Velasquez on 16-35-0618Pfiyshpyzwx in LDL [Mass/Vol]Cholesterol in LDL [Mass/volume] in Serum or Plasma by calculationCleveland Clinic FoundationComment on above:LDL ATP III CLASSIFICATIONLDL less than 100 mg/dL OptimalLDL 100-129 mg/dL Near or above mzyxwjlAQS385-427 mg/dL Borderline highLDL 160-189 mg/dL HighLDL greater than 189 mg/dL Very highCholesterol in VLDL Calc [Mass/Vol]Ordered By: Mayco Velasquez on 04-53-2848Zmnagacwjuj in VLDL [Mass/Vol]Cholesterol in VLDL [Mass/volume] in Serum or Plasma by calculation [facility] Clinic FoundationComplete Blood Count Auto Diffon 05-12-2024 Basophils (Bld) [#/Vol]0.1 10*3/uLNormal0.0-0.2The [facility]ician [facility] Comment on above:Result Comment: PERFORMED BY: [facility] [address] [place] [address] PATHOLOGIST KID CLUB ATTENDANT TAVO JAVED M.D.Performed By: #### [id number], TSH3, CMP, A1C WTH eA, LIPID, CBC, BRANDIN, FE and TIBC ####[facility] [place], [place] [address]#### INSULIN ####[facility] ,Basophils/100 WBC (Bld)1.0 %Normal.The [facility] Physician GroupComment on above:Performed By: #### [id number], TSH3, CMP, A1C WTH eA, LIPID, CBC, BRANDIN, FE and TIBC ####[address]#### INSULIN ####[facility] ,Eosinophils (Bld) [#/Vol]0.2 10*3/uLNormal 0.0-0.45The [facility] Physician GroupComment on above:Performed By: #### [id number], TSH3, CMP, A1C WTH eA, LIPID, CBC, BRANDIN, FE and TIBC ####[address]#### INSULIN ####[facility] ,Eosinophils/100 WBC (Bld)3.9 %Normal.The [facility] Physician GroupComment on above:Performed By: #### [id number], TSH3, CMP, A1C WTH eA, LIPID, CBC, BRANDIN, FE and TIBC ####[address]#### INSULIN ####[facility] ,Erythrocyte distribution width (RBC) [Ratio]14.4 %Nixuff89.9-15.3The [facility] Physician GroupComment on above:Performed By: #### [id number], TSH3, CMP, A1C WTH eA, LIPID, CBC, BRANDIN, FE and TIBC ####[address]#### INSULIN ####[facility] ,Hematocrit (Bld) [Volume fraction]39.1 %Raznta50.0-46.4The [facility] Physician GroupComment on above:Performed By: #### [id number], TSH3, CMP, A1C WTH eA, LIPID, CBC, BRANDIN, FE and TIBC ####[place] [address] [place]#### INSULIN ####[facility] ,Hemoglobin (Bld) [Mass/Vol]13.5 g/dL Ndgiro58.8-15.4The [facility] Physician GroupComment on above:Performed By: #### [id number], TSH3, CMP, A1C WTH eA, LIPID, CBC, BRANDIN, FE and TIBC ####[address]#### INSULIN ####[facility] ,Lymphocytes (Bld) [#/Vol]1.8 10*3/uLNormal1.00-4.8The [facility] Physician GroupComment on above:Performed By: #### [id number], TSH3, CMP, A1C WTH eA, LIPID, CBC, BRANDIN, FE and TIBC ####[address]#### INSULIN ####[facility] ,Lymphocytes/100 WBC (Bld)33.3 %Normal.The [facility] Physician GroupComment on above:Performed By: #### [id number], TSH3, CMP, A1C WTH eA, LIPID, CBC, BRANDIN, FE and TIBC ####[address]#### INSULIN ####[facility] ,MCH (RBC) [Entitic mass]29.4 xgZawmuv24.7-34.3The [facility] Physician GroupComment on above:Performed By: #### [id number], TSH3, CMP, A1C WTH eA, LIPID, CBC, BRANDIN, FE and TIBC ####[place] [address] [place]#### INSULIN ####[facility] ,MCV (RBC) [Entitic vol]85.1 fLNormal 80-100The [facility] Physician GroupComment on above:Performed By: #### [id number], TSH3, CMP, A1C WTH eA, LIPID, CBC, BRANDIN, FE and TIBC ####[address] [place] [address] [place]#### INSULIN ####[facility] ,Mean Corpuscular HGB Conc34.6 g/bHRgtbsr55.0-35.0The [facility] Physician GroupComment on above:Performed By: #### [id number], TSH3, CMP, A1C WTH eA, LIPID, CBC, BRANDIN, FE and TIBC ####[address]#### INSULIN ####[facility] ,Monocytes (Bld) [#/Vol]0.7 10*3/uLNormal0.0-0.8The [facility] Physician GroupComment on above:Performed By: #### [id number], TSH3, CMP, A1C WTH eA, LIPID, CBC, BRANDIN, FE and TIBC ####[address]#### INSULIN ####[facility] ,Monocytes/100 WBC (Bld)11.8 %Normal. The [facility] Physician GroupComment on above:Performed By: #### [id number], TSH3, CMP, A1C WTH eA, LIPID, CBC, BRANDIN, FE and TIBC ####[address]#### INSULIN ####[facility] ,Neutrophils (Bld) [#/Vol]2.7 10*3/uLNormal1.8-7.7The [facility] Physician GroupComment on above:Performed By: #### [id number], TSH3, CMP, A1C WTH eA, LIPID, CBC, BRANDIN, FE and TIBC ####[place] [address] [place]#### INSULIN ####[facility] , Neutrophils/100 WBC (Bld)50.0 %Normal.The [facility] Physician GroupComment on above:Performed By: #### [id number], TSH3, CMP, A1C WTH eA, LIPID, CBC, BRANDIN, FE and TIBC ####[address]#### INSULIN ####[facility] ,NRBC%0.1 /100{WBC}Normal0-0.5The [facility] Physician GroupComment on above:Performed By: #### [id number], TSH3, CMP, A1C WTH eA, LIPID, CBC, BRANDIN, FE and TIBC ####[address]#### INSULIN ####[facility] ,Platelet mean volume (Bld) [Entitic vol]7.6 fLNormal6.3-10.7The [facility] Physician GroupComment on above:Performed By: #### [id number], TSH3, CMP, A1C WTH eA, LIPID, CBC, BRANDIN, FE and TIBC ####[address]#### INSULIN ####[facility] ,Platelets (Bld) [#/Vol]332 10*3/nLOtljjx014-322Uln [facility] Physician GroupComment on above:Performed By: #### [id number], TSH3, CMP, A1C WTH eA, LIPID, CBC, BRANDIN, FE and TIBC ####[address]#### INSULIN ####[facility] ,RBC (Bld) [#/Vol]4.59 10*6/uLNormal3.60-5.00The [facility] Physician GroupComment on above: Performed By: #### [id number], TSH3, CMP, A1C WTH eA, LIPID, CBC, BRANDIN, FE and TIBC ####[place] [address] [place]#### INSULIN ####[facility] ,WBC (Bld) [#/Vol]5.5 10*3/uLNormal3.8-11.6The [facility] Physician GroupComment on above:Performed By: #### [id number], TSH3, CMP, A1C WTH eA, LIPID, CBC, BRANDIN, FE and TIBC ####[address]#### INSULIN ####[facility] ,Comprehensive Metabolic Panelon 12-10-7059Mmytfqf [Mass/Vol]4.9 g/dLNormal3.5-5.7The [facility] Physician GroupComment on above:Order Comment: FASTING.JKWPerformed By: #### [id number], TSH3, CMP, A1C WTH eA, LIPID, CBC, BRANDIN, FE and TIBC ####[address]#### INSULIN ####[facility] ,Albumin/Globulin [Mass ratio]2.3 {ratio}NormalThe [facility] Physician GroupComment on above:Order Comment: FASTING.JKWPerformed By: #### [id number], TSH3, CMP, A1C WTH eA, LIPID, CBC, BRANDIN, FE and TIBC ####[address]#### INSULIN ####[facility] ,ALP [Catalytic activity/Vol]75 U/FKsmdbq79-775Phi [facility] Physician GroupComment on above:Order Comment: FASTING.JKWPerformed By: #### [id number], TSH3, CMP, A1C WTH eA, LIPID, CBC, BRANDIN, FE and TIBC ####[address]#### INSULIN ####[facility] ,ALT [Catalytic activity/Vol]24 U/LNormal7-52The [facility] Physician GroupComment on above:Order Comment: FASTING.JKWPerformed By: #### [id number], TSH3, CMP, A1C WTH eA, LIPID, CBC, BRANDIN, FE and TIBC ####[address]#### INSULIN ####[facility] ,Anion gap [Moles/Vol]9.9 mmol/L Normal6.0-15.0The [facility] Physician GroupComment on above:Order Comment: FASTING.JKWPerformed By: #### [id number], TSH3, CMP, A1C WTH eA, LIPID, CBC, BRANDIN, FE and TIBC ####[address]#### INSULIN ####[facility] ,AST [Catalytic activity/Vol]30 U/SLpkfzq43-68Fap [facility] Physician GroupComment on above:Order Comment: FASTING.JKWPerformed By: #### [id number], TSH3, CMP, A1C WTH eA, LIPID, CBC, BRANDIN, FE and TIBC ####[address]#### INSULIN ####[facility] ,Bilirubin [Mass/Vol]0.5 mg/dL Normal0.3-1.0The [facility] Physician GroupComment on above:Order Comment: FASTING.JKWPerformed By: #### [id number], TSH3, CMP, A1C WTH eA, LIPID, CBC, BRANDIN, FE and TIBC ####[address]#### INSULIN ####[facility] ,Calcium [Mass/Vol]10.1 mg/dL Normal8.6-10.3The [facility] Physician GroupComment on above:Order Comment: FASTING.JKWPerformed By: #### [id number], TSH3, CMP, A1C WTH eA, LIPID, CBC, BRANDIN, FE and TIBC ####[address]#### INSULIN ####[facility] ,Chloride [Moles/Vol]102 mmol/L Ghkbbj54-359Pba [facility] Physician GroupComment on above:Order Comment: FASTING.JKWPerformed By: #### [id number], TSH3, CMP, A1C WTH eA, LIPID, CBC, BRANDIN, FE and TIBC ####[address]#### INSULIN ####[facility] ,CO2 [Moles/Vol]31.9 mmol/LHigh 21.0-31.0The [facility] Physician GroupComment on above:Order Comment: FASTING.JKWPerformed By: #### [id number], TSH3, CMP, A1C WTH eA, LIPID, CBC, BRANDIN, FE and TIBC ####[address]#### INSULIN ####[facility] ,Creatinine [Mass/Vol]0.88 mg/dL Normal0.60-1.20The [facility] Physician GroupComment on above:Order Comment: FASTING.JKWPerformed By: #### [id number], TSH3, CMP, A1C WTH eA, LIPID, CBC, BRANDIN, FE and TIBC ####[address]#### INSULIN ####[facility] ,GFR/1.73 sq M.predicted MDRD (S/P/Bld) [Vol rate/Area]mL/min/{1.73_m2}NormalThe [facility] Comment on above:Order Comment: FASTING.JKWPerformed By: #### [id number], TSH3, CMP, A1C WTH eA, LIPID, CBC, BRANDIN, FE and TIBC ####[address]#### INSULIN ####[facility] ,Globulin (S) [Mass/Vol]2.1 g/dLNormalThe [facility] Comment on above:Order Comment: FASTING.JKWPerformed By: #### [id number], TSH3, CMP, A1C WTH eA, LIPID, CBC, BRANDIN, FE and TIBC ####[address]#### INSULIN ####[facility] ,Glucose [Mass/Vol]95 mg/xTOokedg00-170Zpv [facility] Physician GroupComment on above:Order Comment: FASTING.JKWResult Comment: Random Glucose Reference Range is dependent on time and content of last meal. Glucose of more than 200 mg/dL in a nonstressed, ambulatory subject supports the diagnosis of Diabetes Mellitus. ADA recommended reference rangePerformed By: #### [id number], TSH3, CMP, A1C WTH eA, LIPID, CBC, BRANDIN, FE and TIBC ####[address]#### INSULIN ####[facility] ,Potassium [Moles/Vol]4.8 mmol/LNormal3.5-5.1The [facility] Physician GroupComment on above: Order Comment: FASTING.JKWPerformed By: #### [id number], TSH3, CMP, A1C WTH eA, LIPID, CBC, BRANDIN, FE and TIBC ####[address]#### INSULIN ####[facility] ,Protein [Mass/Vol]7.0 g/dLNormal6.4-8.9The [facility] Physician GroupComment on above: Order Comment: FASTING.JKWPerformed By: #### [id number], TSH3, CMP, A1C WTH eA, LIPID, CBC, BRANDIN, FE and TIBC ####[address]#### INSULIN ####[facility] ,Sodium [Moles/Vol]139 mmol/IXnbiua567-012Kxg [facility] Physician GroupComment on above: Order Comment: FASTING.JKWPerformed By: #### [id number], TSH3, CMP, A1C WTH eA, LIPID, CBC, BRANDIN, FE and TIBC ####[address] [place] [address] [place]#### INSULIN ####[facility] ,Urea nitrogen [Mass/Vol]10 mg/dLNormal7-25The [facility] Physician GroupComment on above:Order Comment: FASTING.JKWPerformed By: #### [id number], TSH3, CMP, A1C WTH eA, LIPID, CBC, BRANDIN, FE and TIBC ####[place] [address] [address]#### INSULIN ####[facility] ,Creatinine [Mass/volume] in Serum or PlasmaOrdered By: Mayco Velasquez on 62-09-0883Kdcguldgdw [Mass/Vol]Creatinine [Mass/volume] in Serum or Plasma0.60-1.20[facility] FoundationEosinophils Auto (Bld) [#/Vol]Ordered By: Mayco Velasquez on 82-99-9515Ukaxhbptarv (Bld) [#/Vol]Automated eosinophil count0.0-0.45[facility] FoundationEosinophils/100 WBC Auto (Bld)Ordered By: Mayco Velasquez on 58-18-6621Vyyspwmcbll/100 WBC (Bld)Automated eosinophil %.[facility] FoundationErythrocyte distribution width Auto (RBC) [Ratio]Ordered By: Mayco Velasquez on 15-50-2088Bfajzcrtqzv distribution width (RBC) [Ratio]Erythrocyte distribution width [Ratio] by Automated count11.9-15.3FAshtabula County Medical CenterFerritinon 76-00-1552Oslhbzxt [Mass/Vol]122.6 ng/sEZnuddx38.0-306.8The [facility] Physician GroupComment on above:Order Comment: FASTING.JKWPerformed By: #### [id number], TSH3, CMP, A1C WTH eA, LIPID, CBC, BRANDIN, FE and TIBC ####[place] [address] [address]#### INSULIN ####[facility] ,Ferritin [Mass/volume] in Serum or Plasma Ordered By: Mayco Velasquez on 54-18-5934Pxwaobek [Mass/Vol]Ferritin [Mass/volume] in Serum or Nzrsbu72.0-306.8[facility] FoundationGlobulin Calc (S) [Mass/Vol]Ordered By: Mayco Velasquez on 71-41-4861Fiuhjdta (S) [Mass/Vol]Serum globulin measurement by calculation (mass/volume)[facility] FoundationGlucose [Mass/volume] in Serum or PlasmaOrdered By: Mayco Velasquez on 50-35-4067Smatorh [Mass/Vol]Glucose [Mass/volume] in Serum or Wgkxwx87-280 [facility] FoundationComment on above:ADA recommended reference rangeRandom Glucose Reference Range is dependent on time and content of last meal. Glucose of more than 200 mg/dL in a nonstressed, ambulatory subject supports the diagnosisof Diabetes Mellitus.Hematocrit Auto (Bld) [Volume fraction]Ordered By: Mayco Velasquez on 23-54-2945Ddgracdjop (Bld) [Volume fraction]Hematocrit [Volume Fraction] of Blood by Automated count34.0-46.4 [facility] FoundationHemoglobin A1c/Hemoglobin.total in BloodOrdered By: Mayco Velasquez on 20-68-0225MvC9z (Bld) [Mass fraction]Hemoglobin A1c percentage4.3-5.6FAshtabula County Medical CenterComment on above:Increased risk for diabetes: 5.7 - 6.4diabetes: >6.4glycemic control for adults with diabetes: <7.0Hemoglobin [Mass/volume] in BloodOrdered By: Mayco Velasquez on 74-62-5280Fjlrhzpygk (Bld) [Mass/Vol]Hemoglobin [Mass/volume] in Blood11.8-15.4 [facility] FoundationInsulinon 33-44-1046Wlfifhr72.0 u[iU]/mLNormal 2.6-24.9The [facility] Physician GroupComment on above:Result Comment: Performed at: - [facility] [id number] Trekking Guide: Jourdan Gonzales PhD, Phone: [phone] PERFORMED BY: [address] [place] [address] PATHOLOGIST KID CLUB ATTENDANT MOHAMED M EL-FAKHARANY M.D.Performed By: #### [id number], TSH3, CMP, A1C WTH eA, LIPID, CBC, BRANDIN, FE and TIBC ####[address]#### INSULIN ####[facility] ,Iron [Mass/volume] in Serum or PlasmaOrdered By: Mayco Velasquez on 81-62-4017Ntek [Mass/Vol]Iron [Mass/volume] in Serum or Mmxnaj25-619NwzwrunlpCleveland Clinic FoundationIron and TIBC Profileon 05-12-2024% Iron Gmtxhbevju17.9 %Gie54-64Sfr [facility] Physician GroupComment on above:Order Comment: FASTING.JKWPerformed By: #### [id number], TSH3, CMP, A1C WTH eA, LIPID, CBC, BRANDIN, FE and TIBC ####[address]#### INSULIN ####[facility] ,Iron [Mass/Vol]65 ug/qQZnuuzq72-144Cwh [facility] Physician GroupComment on above:Order Comment: FASTING.JKWPerformed By: #### [id number], TSH3, CMP, A1C WTH eA, LIPID, CBC, BRANDIN, FE and TIBC ####[address]#### INSULIN ####[facility] ,Total Iron Binding Gxvbsgpy509 ug/dLNormal 255-450The [facility] Physician GroupComment on above:Order Comment: FASTING.JKW Performed By: #### [id number], TSH3, CMP, A1C WTH eA, LIPID, CBC, BRANDIN, FE and TIBC ####[place] [address] [place]#### INSULIN ####[facility] ,Transferrin [Mass/Vol]233 mg/lMIhkkvq386-386 The [facility] Physician GroupComment on above:Order Comment: FASTING.JKW Performed By: #### [id number], TSH3, CMP, A1C WTH eA, LIPID, CBC, BRANDIN, FE and TIBC ####[place] [id number] [address]#### INSULIN ####[facility] ,Leukocytes [#/volume] corrected for nucleated erythrocytes in Blood by Automated counOrdered By: Mayco Velasquez on 01-43-1452AXE corrected for nucl RBC Auto (Bld) [#/Vol]Leukocytes [#/volume] corrected for nucleated erythrocytes in Blood by Automated coun3.8-11.6FAshtabula County Medical CenterLipid Panelon 18-95-6171Namuwrkutbh [Mass/Vol]124 mg/kBRnd064-518 The [facility] Physician GroupComment on above:Order Comment: FASTING.JKWResult Comment: Chol less than 200 mg/dl low risk Chol 201-239 mg/dl borderline risk Chol 240 mg/dl and greater high riskPerformed By: #### [id number], TSH3, CMP, A1C WTH eA, LIPID, CBC, BRANDIN, FE and TIBC ####[address]#### INSULIN ####[facility] , Cholesterol in HDL [Mass/Vol]63 mg/uRAzsbhi36-28Huh [facility] Comment on above:Order Comment: FASTING.JKWResult Comment: HDL CHOL ATP-III CLASSIFICATION Cardiovascular Risk HDL > or equal to 60 mg/dL LOW HDL < 40 mg/dL HIGHPerformed By: #### [id number], TSH3, CMP, A1C WTH eA, LIPID, CBC, BRANDIN, FE and TIBC ####[address]#### INSULIN ####[facility] , Cholesterol.total/Cholesterol in HDL [Mass ratio]2.0 {ratio}Normal<5.0The [facility] Physician GroupComment on above:Order Comment: FASTING.JKWPerformed By: #### [id number], TSH3, CMP, A1C WTH eA, LIPID, CBC, BRANDIN, FE and TIBC ####[address]#### INSULIN ####[facility] ,LDL Cholesterol,Cmdlwkthds30 mg/dLNormal0-100 The [facility] Physician GroupComment on above:Order Comment: FASTING.JKWResult Comment: LDL ATP III CLASSIFICATION LDL less than 100 mg/dL Optimal LDL 100-129 mg/dL Near or above optimal LDL 130-159 mg/dL Borderline high LDL 160-189 mg/dL High LDL greater than 189 mg/dL Very highPerformed By: #### [id number], TSH3, CMP, A1C WTH eA, LIPID, CBC, BRANDIN, FE and TIBC ####[address]#### INSULIN ####[facility] , Triglyceride w/Cjyxxc507 mg/dLNormal0-149The [facility] Physician GroupComment on above:Order Comment: FASTING.JKWResult Comment: TRIG ATP III CLASSIFICATION TRIG less than 150 mg/dL Normal TRIG 150-199 mg/dL Borderline high TRIG 200-500 mg/dL High TRIG greater than 500 mg/dL Very high Standard traceable to the Center for Disease Conrtrol and Prevention (CDC) test method.Performed By: #### [id number], TSH3, CMP, A1C WTH eA, LIPID, CBC, BRANDIN, FE and TIBC ####[address]#### INSULIN ####[facility] ,VLDL CYTIIKCHOQN82 mg/dLNormalThe [facility] Physician GroupComment on above:Order Comment: FASTING.JKWPerformed By: #### [id number], TSH3, CMP, A1C WTH eA, LIPID, CBC, BRANDIN, FE and TIBC ####[address]#### INSULIN ####[facility] ,Lymphocytes Auto (Bld) [#/Vol]Ordered By: Mayco Velasquez on 98-41-4869Nhntlwnarym (Bld) [#/Vol]Lymphocytes [#/volume] in Blood by Automated count1.00-4.8[facility] FoundationLymphocytes/100 WBC Auto (Bld)Ordered By: Mayco Velasquez on 40-47-4000Yamaqqkwfgj/100 WBC (Bld)Lymphocytes/100 leukocytes in Blood by Automated count.[facility] FoundationMCH Auto (RBC) [Entitic mass] Ordered By: Mayco Velasquez on 06-03-1994YKO (RBC) [Entitic mass]MCH [Entitic mass] by Automated count24.7-34.3FAshtabula County Medical CenterMCHC Auto (RBC) [Mass/Vol]Ordered By: Mayco Velasquez on 75-91-4284PDLU (RBC) [Mass/Vol]MCHC [Mass/volume] by Automated count32.0-35.0[facility] FoundationMCV Auto (RBC) [Entitic vol]Ordered By: Mayco Velasquez on 39-98-1567PWI (RBC) [Entitic vol]MCV [Entitic volume] by Automated aekuw17-166RfketfqwgCleveland Clinic FoundationMonocytes Auto (Bld) [#/Vol]Ordered By: Mayco Velasquez on 05-12-2024 Monocytes (Bld) [#/Vol]Automated blood monocyte count0.0-0.8[facility] FoundationMonocytes/100 WBC Auto (Bld)Ordered By: Mayco Velasquez on 05-12-2024 Monocytes/100 WBC (Bld)Automated monocyte %.[facility] Neutrophils Auto (Bld) [#/Vol]Ordered By: Mayco Velasquez on 21-96-9259Vdzaisgvbhc (Bld) [#/Vol]Neutrophils [#/volume] in Blood by Automated count1.8-7.7FAshtabula County Medical CenterNeutrophils/100 WBC Auto (Bld)Ordered By: Mayco Velasquez on 71-48-6531Agvgarmdpdo/100 WBC (Bld)Automated neutrophil %.[facility] FoundationNo Panel InformationOrdered By: Mayco Velasquez on 05-12-2024 Estimated GFR (CKD-EPI)> 60.0 mL/MinCleveland Clinic FoundationPharmacy Creatinine Clearance (ChemN/AFAshtabula County Medical CenterNucleated erythrocytes [Presence] in Blood by Automated countOrdered By: Mayco Velasquez on 44-24-0596Uxpfcfgqj RBC Auto Ql (Bld)Nucleated erythrocytes [Presence] in Blood by Automated count0-0.5FAshtabula County Medical CenterPlatelet mean volume Auto (Bld) [Entitic vol]Ordered By: Mayco Velasquez on 22-69-7815Enhixebq mean volume (Bld) [Entitic vol]Platelet mean volume [Entitic volume] in Blood by Automated count6.3-10.7FAshtabula County Medical CenterPlatelets Auto (Bld) [#/Vol]Ordered By: Mayco Velasquez on 30-41-9071Ubtpeclnc (Bld) [#/Vol]Platelets [#/volume] in Blood by Automated pzhco649-638EunbtwensCleveland Clinic Foundation Potassium [Moles/volume] in Serum or PlasmaOrdered By: Mayco Velasquez on 25-77-3539Sujumoofg [Moles/Vol]Potassium [Moles/volume] in Serum or Plasma 3.5-5.1FAshtabula County Medical CenterProtein [Mass/volume] in Serum or Plasma Ordered By: Mayco Velasquez on 41-71-1475Sundutj [Mass/Vol]Protein [Mass/volume] in Serum or Plasma6.4-8.9[facility] FoundationRBC Auto (Bld) [#/Vol] Ordered By: Mayco Velasquez on 46-62-2360OSR (Bld) [#/Vol]Erythrocytes [#/volume] in Blood by Automated count3.60-5.00[facility] Health Systemerum or plasma albumin/globulin mass ratioOrdered By: Mayco Velasquez on 05-12-2024 Albumin/Globulin [Mass ratio]Serum or plasma albumin/globulin mass ratio [facility] Systemerum or plasma anion gap determinationOrdered By: Mayco Velasquez on 39-23-3895Riksf gap [Moles/Vol]Serum or plasma anion gap determination6.0-15.0[facility] Health Systemerum or plasma insulin measurement (units/volume)Ordered By: Mayco Velasquez on 09-67-8181Vskmbrx QnSerum or plasma insulin measurement (units/volume)2.6-24.9[facility] FoundationComment on above:Performed at: [address] [id number] Director: Jourdan Gonzales PhD, Phone: [phone] or plasma iron binding capacity measurement (mass/volume)Ordered By: Mayco Velasquez on 57-45-3453Bvrr binding capacity [Mass/Vol]Iron binding capacity [Mass/volume] in Serum or Dqsvep770-685PfmkgylplUniversity Hospitals Health Systemerum or plasma iron saturation measurement (mass fraction)Ordered By: Mayco Velasquez on 61-78-1526Nufo saturation [Mass fraction]Iron saturation [Mass Fraction] in Serum or QpvdbiGwz75-96HihbxitknUniversity Hospitals Health Systemerum or plasma total cholesterol/high density lipoprotein (HDL) cholesterol mass ratOrdered By: Mayco Velasquez on 81-30-1544Kfskgxgkagj.total/Cholesterol in HDL [Mass ratio]Serum or plasma total cholesterol/high density lipoprotein (HDL) cholesterol mass rat<5.0 [facility] Health Systemodium [Moles/volume] in Serum or PlasmaOrdered By: Mayco Velasquez on 01-48-4485Btwdqi [Moles/Vol]Sodium [Moles/volume] in Serum or Wvnrgl029-983FmfzalygtCleveland Clinic FoundationThyroid Stimulating Hormoneon 58-65-9246LQJ Qn2.40 m[IU]/LNormal0.45-5.33The [facility] Physician GroupComment on above:Order Comment: FASTING.JKWPerformed By: #### [id number], TSH3, CMP, A1C WTH eA, LIPID, CBC, BRANDIN, FE and TIBC ####[facility] [id number] [address]#### INSULIN ####[facility] , Thyrotropin [Units/volume] in Serum or PlasmaOrdered By: Mayco Velasquez on 33-65-0861QED QnThyrotropin [Units/volume] in Serum or Plasma0.45-5.33[facility] FoundationTransferrin [Mass/volume] in Serum or PlasmaOrdered By: Mayco Velasquez on 02-63-0956Zcmnxyfzrhw [Mass/Vol]Transferrin [Mass/volume] in Serum or Zbyvww740-903RugxeqxbiCleveland Clinic FoundationTriglyceride [Mass/volume] in Serum or PlasmaOrdered By: Mayco Velasquez on 05-12-2024 Triglyceride [Mass/Vol]Triglyceride [Mass/volume] in Serum or Plasma0-149 [facility] FoundationComment on above:TRIG ATP III CLASSIFICATIONTRIG less than 150 mg/dL NormalTRIG 150-199 mg/dL Borderline highTRIG 200-500 mg/dL High TRIG greater than 500 mg/dL Very highStandard traceable to the Center for Disease Conrtrol and Prevention (CDC) test method. Urea nitrogen [Mass/volume] in Serum or PlasmaOrdered By: Mayco Velasquez on 81-77-0147Lgdg nitrogen [Mass/Vol]Urea nitrogen [Mass/volume] in Serum or Plasma -[facility] Clinic FoundationVitamin D 25 Hydroxy Totalon 05-12-2024 Vitamin D 25 Hydroxy Total39.9 ng/uTDutakq66-075Wit [facility] Comment on above:Order Comment: FASTING.CasieKWRzita Comment: VITAMIN D STATUS 25(OH)VITAMIN D RANGE (ng/mL) Deficient <20 Insufficient 20 to <30 Sufficient 30 to 100 Reference: Ligia Moreno, Skylar BALDERAS et al. Evaluation,treatment, and prevention of vitamin D deficiency; an Endocrine Society clinical practice guideline. JCEM. 2010; 96(7):1911-30. PERFORMED BY: [facility] [address] [place] [address] PATHOLOGIST KID CLUB ATTENDANT TAVO JAVED M.D.Performed By: #### [id number], TSH3, CMP, A1C WTH eA, LIPID, CBC, BRANDIN, FE and TIBC ####[facility] Dsj[address]#### INSULIN ####[facility] ,Vitamin D+Metabolites [Mass/volume] in Serum or PlasmaOrdered By: Mayco Velasquez on 57-36-5382Niozbgs D+Metabolites [Mass/Vol]Vitamin D+Metabolites [Mass/volume] in Serum or Wkxpuu94-057WtrceolgsCleveland Clinic FoundationComment on above:VITAMIN D STATUS 25(OH)VITAMIN D RANGE (ng/mL) Deficient <20 Insufficient 20 to <83Znyxszvhvu31 to 100Reference: Ligia Moreno, Skylar BALDERAS et al. Evaluation,treatment, and prevention of vitamin D deficiency; an Endocrine Society clinical practice guideline. JCEM. 2010; 96(7):1911-30.WBC Auto (Bld) [#/Vol]Ordered By: Mayco Velasquez on 85-38-2479IWD (Bld) [#/Vol]Leukocytes [#/volume] in Blood by Automated count3.8-11.6FAshtabula County Medical Center CNOVon 93-67-2030ICMQOtrpkq [facility] ([id number]) 1945 F Date Time Provider Department 04/08/24 11:00 AM [facility] During your visit today, we recorded the following information about you: Krystina Lees RN 04/08/2024 10:32 AM Signed Addended by: KRYSTINA LEES on: 04/08/2024 10:32 AM Modules accepted: Mejia Maldonado PA-C 04/08/2024 10:25 AM Addendum [facility] Hand AND Upper Extremity Surgery New Patient Evaluation Consulting Provider: Sarbjit Andrea [address] [place] [address] Consultation requested by Sarbjit Andrea for an [...] results and radiologist's interpretation, available in the [facility] health record. Images were reviewed with the [...] tunnel syndrome, left (pr (more content not included)...NormalSelect Medical Cleveland Clinic Rehabilitation Hospital, Edwin ShawXR HAND 3V PA/LAT/OBL LTon 80-92-5104OG HAND 3V PA/LAT/OBL LT* * *Final Report* [...] dislocation. No erosions. No other significant abnormality. Route Delivery Supervisor: MAGDALENO Transcribe Date/Time: Apr 10 2024 9:10P Dictated by : SOULEYMANE CLEMONS MD This examination was interpreted and the report reviewed and electronically signed by: SOULEYMANE CLEMONS MD on Apr 10 2024 9:15PM EST [id number] Medical Cleveland Clinic Rehabilitation Hospital, Edwin ShawXR HAND 3V PA/LAT/OBL RTon 67-29-7149RW HAND 3V PA/LAT/OBL RT* * *Final Report* [...] dislocation. No erosions. No other significant abnormality. Route Delivery Supervisor: [facility] Transcribe Date/Time: Apr 10 2024 9:10P Dictated by : SOULEYMANE CLEMONS MD This examination was interpreted and the report reviewed and electronically signed by: SOULEYMANE CLEMONS MD on Apr 10 2024 9:15PM EST [id number] Health System Galion HospitalXR WRIST 3V PA/LAT/OBL TOSHA on 49-32-3973EJ WRIST 3V PA/LAT/OBL TOSHA* * *Final Report* [...] dislocation. No erosions. No other significant abnormality. Route Delivery Supervisor: MAGDALENO Transcribe Date/Time: Apr 10 2024 9:10P Dictated by : SOULEYMANE CLEMONS MD This examination was interpreted and the report reviewed and electronically signed by: SOULEYMANE CLEMONS MD on Apr 10 2024 9:15PM EST [id number] Medical Cleveland Clinic Rehabilitation Hospital, Edwin ShawCNPNon 61-73-3930OGJM Telephone (PLASMN) SUMA SCOTT ([id number]) 1945 F Date Time Provider Department 04/05/24 [...] for Visit: Order for X-ray Before Appt Fri [Other] Prescriptions as of 04/05/2024 - hydrOXYchloroQUINE [...] (None) Encounter Status:Closed by LANETTE MARTE on 04/05/24NoChildren's Hospital for RehabilitationXR knee LT 4V*on 94-22-7040JV knee LT 4V*[facility] [place] [address] [place] [address] XRay Report Signed Patient: Suma Scott MR#: [id number] 4 : 1945 Acct:[id number] Age/Sex: 79 / F ADM Date: 03/01/24 Loc: XD Room: Type: [facility] Attending Dr: Mayco Velasquez DO Copies [...] Denise Omalley M.D.03/01/2024 7:34 PM Dictation Location: [place] [address] Transcribed By: [facility] 03/01/241933 Dictated By: Denise Omalley MD 03/01/241931 Signed By: 03/01/241933[facility] Physician GroupXR CERVICAL 4V AP/LAT/OBLon 86-89-1285CR CERVICAL 4V AP/LAT/OBL* * *Final Report* * [...] are normal. IMPRESSION: Degenerative changes as described. Route Delivery Supervisor: PSCB Transcribe Date/Time: Dec 22 2023 1:27P Dictated by : MARIAELENA JOLLY MD This examination was interpreted and the report reviewed and electronically signed by: MARIAELENA JOLLY MD on Dec 22 2023 1:28PM EST [id number] Health Butterworth Hospital Cervical spine AP and Lateral and obliqueon 06-28-5561OIJQFDRWKY: Degenerative changes as described. Route Delivery Supervisor: PSC Transcribe Date/Time: Dec 22 2023 1:27P Dictated by : MARIAELENA JOLLY MD This examination was interpreted and the report reviewed and electronically signed by: MARIAELENA JOLLY MD on Dec 22 2023 1:28PM EST [facility]* * *Final Report* * * DATE [...] Prevertebral soft tissues are normal. T[facility]I RADIOLOGYProvider, [facility] [place] - 12/22/2023 * * *Final Report* * [...] normal. IMPRESSION IMPRESSION: Degenerative changes as described. Route Delivery Supervisor: MAGDALENO Transcribe Date/Time: Dec 22 2023 1:27P Dictated by : MARIAELENA JOLLY MD This examination was interpreted and the report reviewed and electronically signed by: MARIAELENA JOLLY MD on Dec 22 2023 1:28PM [facility]stownRadiology Study observation (narrative)[facility] Cervical spine AP and Lateral and obliqueOrdered By: Ccf Provider on 12-22-2023 [facility] HospitalOVon 68-89-4781GCOBPdywys Visit (SPMEST) SUMA SCOTT ([id number]) 1945 F Date Time Provider Department 12/10/23 [...] sensation [R20.9] Order(s):XR CERV OTHER 4V AP/LAT/OBL [2726869] Order #: [id number] FUTURE EMG(NEURO/NI) [[id number]] Order #: [id number]: 1 FUTURE Prescriptions as of 12/16/2023 - [...] at bedtime. - met (more content not included)...NormalMercy Health St. Elizabeth Boardman Hospitalon 75-80-7033ENTPFkxpskrko (DIANEMN) SUMA SCOTT ([id number]) 1945 F Date Time Provider Department 12/03/23 ROMAN WAGGONERMN During your visit today, we recorded the [...] appointment 2-4 weeks post procedure by calling [phone] Patient does not have any questions or [...] Encounter Status:Closed by ZAIRA MILLS on 12/03/23[facility] 42-84-9478RXXDFohaig Visit [facility] SU[facility] SC[facility] ([id number]) 1945 F Date Time Provider Department 11/25/23 1:30 PM [facility] PROC[facility] During your visit today, we recorded [...] Steroid Injection Verified by patient by: Dr. Fox Morel for post spine injection procedure: Yes [...] imaging, etc.) Yes Critical Information: Proceduralist: Dr. Fox Vizcaino, DO PROCEDURAL TIME OUT: Time out verification [...] PATIENT / FAMILY RESP (more content not included)...NormalSt. Francis HospitalTORY PHYSICALon 65-86-9811YVMNHGC PHYSICALHNO ID: [id number] Author: ROMAN WAGGONER, DO Service: ? Author [...] with explicit agreement by patient or patient client account representative to proceed before procedure. Patient seen and discussed with attending, Roman Waggoner DO, who agrees with plan. Bharath Vizcaino DO PGY-5 Interventional Spine and Musculoskeletal Medicine Fellow Physical Medicine and Rehabilitation SIGNATURE: Bharath Vizcaino DO PATIENT NAME: Suma Scott DATE: November 25, 2023 TIME: 1:54 PMNormalSelect Medical Cleveland Clinic Rehabilitation Hospital, Edwin ShawAlanine aminotransferase [Enzymatic activity/volume] in Serum or PlasmaOrdered By: Mayco Velasquez on 83-29-3427RNR [Catalytic activity/Vol]44 U/L7-52C[facility] FoundationAlbumin [Mass/volume] in Serum or Plasma by Bromocresol green (BCG) dye binding metho Ordered By: Mayco Velasquez on 36-89-4974Xujvaya BCG dye [Mass/Vol]4.6 g/dL3.5-5.7 [facility] FoundationAlkaline phosphatase [Enzymatic activity/volume] in Serum or PlasmaOrdered By: Mayco Velasquez on 57-48-8567NCV [Catalytic activity/Vol]91 U/D05-839JmdauaqoyCleveland Clinic FoundationAspartate aminotransferase [Enzymatic activity/volume] in Serum or PlasmaOrdered By: Mayco Velasquez on 10-93-7334WLX [Catalytic activity/Vol]41 U/QRtzn10-93PmvvbhkopCleveland Clinic FoundationBacteria [Presence] in Urine by AutomatedOrdered By: Mayco Velasquez on 14-60-8019Cktjngfb Auto Ql (U)None seen [HPF]None SeenCleveland Clinic FoundationBasophils Auto (Bld) [#/Vol]Ordered By: Mayco Velasquez on 62-94-6079Tfrdcswpi (Bld) [#/Vol]0.0 10*3/uL0.0-0.2FAshtabula County Medical CenterBasophils/100 WBC Auto (Bld)Ordered By: Mayco Velasquez on 11-23-2023 Basophils/100 WBC (Bld)1.1 %.[facility] Clinic FoundationBilirubin Test strip Ql (U)Ordered By: Mayco Velasquez on 01-66-2808Xtatwztpa Ql (U)Negative NegativeCleveland Clinic FoundationBilirubin.total [Mass/volume] in Serum or PlasmaOrdered By: Mayco Velasquez on 37-02-6457Iipcggqpf [Mass/Vol]0.6 mg/dL 0.3-1.0[facility] FoundationCalcium [Mass/volume] in Serum or Plasma Ordered By: Mayco Velasquez on 22-67-7070Xyyzacn [Mass/Vol]10.0 mg/dL8.6-10.3 [facility] FoundationCarbon dioxide, total [Moles/volume] in Serum or PlasmaOrdered By: Mayco Velasquez on 65-55-8059TF2 [Moles/Vol]27.8 mmol/L 21.0-31.0C[facility] FoundationChloride [Moles/volume] in Serum or PlasmaOrdered By: Mayco Velasquez on 33-09-2495Adwrwxbt [Moles/Vol]102 mmol/L98-107 [facility] FoundationCholesterol [Mass/volume] in Serum or Plasma Ordered By: Mayco Velasquez on 43-97-2281Umesbjrmgsw [Mass/Vol]122 mg/tAYvl935-929 [facility] FoundationComment on above:Chol less than 200 mg/dl low riskChol 201-239 mg/dl borderline riskChol 240 mg/dl and greater high risk Cholesterol in LDL Calc [Mass/Vol]Ordered By: Mayco Velasquez on 11-23-2023 Cholesterol in LDL [Mass/Vol]40 mg/dL0-100[facility] Comment on above:LDL ATP III CLASSIFICATIONLDL less than 100 mg/dL OptimalLDL 100-129 mg/dL Near or above hybscaiTCO195-973 mg/dL Borderline highLDL 160-189 mg/dL HighLDL greater than 189 mg/dL Very highCholesterol in VLDL Calc [Mass/Vol]Ordered By: Mayco Velasquez on 68-74-9416Auwiuqfmzuq in VLDL [Mass/Vol]27 mg/dLCleveland Clinic FoundationColor Auto (U)Ordered By: Mayco Velasquez on 94-85-9288Manpv (U)YellowYellowCleveland Clinic FoundationCreatinine [Mass/volume] in Serum or PlasmaOrdered By: Mayco Velasquez on 22-41-8301Rpbxofjfaw [Mass/Vol]0.90 mg/dL0.60-1.20[facility] FoundationEosinophils Auto (Bld) [#/Vol]Ordered By: Mayco Velasquez on 52-68-5244Ultkeoqqkub (Bld) [#/Vol]0.1 10*3/uL0.0-0.45C[facility] Clinic FoundationEosinophils/100 WBC Auto (Bld) Ordered By: Mayco Velasquez on 50-08-7407Lofwlasomgh/100 WBC (Bld)2.4 %.[facility] FoundationEpithelial cells.squamous [#/area] in Urine sediment by Automated countOrdered By: Mayco Velasquez on 66-32-6578Oggbftglfk cells.squamous Auto (Urine sed) [#/Area]1-2 [HPF]0-2FAshtabula County Medical Center Erythrocyte distribution width Auto (RBC) [Ratio]Ordered By: Mayco Velasquez on 80-37-7085Zjrlztddcxl distribution width (RBC) [Ratio]13.7 %11.9-15.3FAshtabula County Medical CenterErythrocytes [#/area] in Urine sediment by Automated countOrdered By: Mayco Velasquez on 00-95-6640UZL Auto (Urine sed) [#/Area]1-2 [HPF]0-4FAshtabula County Medical CenterFerritin [Mass/volume] in Serum or PlasmaOrdered By: Mayco Velasquez on 80-11-1380Qgbclevx [Mass/Vol]78.2 ng/mL 11.0-306.8C[facility] Clinic FoundationGlobulin Calc (S) [Mass/Vol]Ordered By: Mayco Velasquez on 55-63-6204Fifujujj (S) [Mass/Vol]2.1 g/dLCleveland Clinic FoundationGlucose [Mass/volume] in Serum or PlasmaOrdered By: Mayco Velasquez on 78-37-1389Qlmmgyc [Mass/Vol]100 mg/kR28-703BndhbrqgtCleveland Clinic Foundation Comment on above:ADA recommended reference rangeRandom Glucose Reference Range is dependent on time and content of last meal. Glucose of more than 200 mg/dL in a nonstressed, ambulatory subject supports the diagnosisof Diabetes Mellitus. Glucose [Mass/volume] in Urine by Test stripOrdered By: Mayco Velasquez on 82-85-7547Olvjnlq Test strip (U) [Mass/Vol]Normal mg/dLNormalCleveland Clinic FoundationGlucose mean value [Mass/volume] in Blood Estimated from glycated hemoglobinOrdered By: Mayco Velasquez on 71-24-9673Joxzrvn glucose Estimated from glycated hemoglobin (Bld) [Mass/Vol]120 mg/dLCleveland Clinic Foundation Hematocrit Auto (Bld) [Volume fraction]Ordered By: Mayco Velasquez on 11-23-2023 Hematocrit (Bld) [Volume fraction]41.9 %34.0-46.4FAshtabula County Medical CenterHemoglobin A1c percentageOrdered By: Mayco Velasquez on 71-29-8161YfB0c (Bld) [Mass fraction]5.8 %High4.3-5.6FAshtabula County Medical CenterComment on above:Increased risk for diabetes: 5.7 - 6.4diabetes: >6.4glycemic control for adults with diabetes: <7.0Hemoglobin Test strip Ql (U)Ordered By: Mayco Velasquez on 23-49-3417Xqqbjbvkyl Ql (U)NegativeNegativeCleveland Clinic FoundationHemoglobin [Mass/volume] in BloodOrdered By: Mayoc Velasquez on 11-23-2023 Hemoglobin (Bld) [Mass/Vol]14.3 g/dL11.8-15.4FAshtabula County Medical Center Hyaline casts [#/area] in Urine sediment by Automated countOrdered By: Mayco Velasquez on 71-08-3227Zcphiel casts Auto (Urine sed) [#/Area]None [LPF]0-8 [facility] FoundationIron [Mass/volume] in Serum or PlasmaOrdered By: Mayco Velasquez on 92-01-0283Mzwo [Mass/Vol]245 ug/tFBppj64-654BnmycxkwcCleveland Clinic FoundationIron binding capacity [Mass/volume] in Serum or Plasma Ordered By: Mayco Velasquez on 68-87-4529Dsny binding capacity [Mass/Vol]325 ug/dL 255-450C[facility] FoundationIron saturation [Mass Fraction] in Serum or PlasmaOrdered By: Mayco Velasquez on 10-88-5670Fyhe saturation [Mass fraction] 75.4 %Rgfe80-29FgxjafeqxCleveland Clinic FoundationKetones Test strip Ql (U)Ordered By: Mayco Velasquez on 44-34-2488Aiuauug Ql (U)NegativeNegKettering Health – Soin Medical CenterLeukocyte esterase [Presence] in Urine by Test stripOrdered By: Mayco Velasquez on 17-06-7313Vzxndioxn esterase Test strip Ql (U)NegativeNegative [facility] FoundationLeukocytes [#/area] in Urine sediment by Automated countOrdered By: Mayco Velasquez on 01-73-5550RHN Auto (Urine sed) [#/Area]1-2 [HPF]0-4FAshtabula County Medical CenterLeukocytes [#/volume] corrected for nucleated erythrocytes in Blood by Automated counOrdered By: Mayco Velasquez on 15-58-2942PDU corrected for nucl RBC Auto (Bld) [#/Vol]4.4 10*3/uL 3.8-11.6FAshtabula County Medical CenterLymphocytes Auto (Bld) [#/Vol]Ordered By: Mayco Velasquez on 80-17-9548Njqjmwiodfs (Bld) [#/Vol]1.3 10*3/uL1.00-4.8 [facility] FoundationLymphocytes/100 WBC Auto (Bld)Ordered By: Mayco Velasquez on 77-32-0308Bjfykhlhogs/100 WBC (Bld)29.4 %.[facility] Auto (RBC) [Entitic mass]Ordered By: Mayco Velasquez on 10-34-8302SLK (RBC) [Entitic mass]29.1 pg24.7-34.3FAshtabula County Medical CenterMCHC Auto (RBC) [Mass/Vol]Ordered By: Mayco Velasquez on 17-05-5767YHQG (RBC) [Mass/Vol]34.1 g/dL32.0-35.0[facility] FoundationMCV Auto (RBC) [Entitic vol] Ordered By: Mayco Velasquez on 16-36-9218KIT (RBC) [Entitic vol]85.4 vU85-614 [facility] FoundationMonocytes Auto (Bld) [#/Vol]Ordered By: Mayco Velasquez on 67-38-0034Ppaehyets (Bld) [#/Vol]0.6 10*3/uL0.0-0.8[facility] FoundationMonocytes/100 WBC Auto (Bld)Ordered By: Mayco Velasquez on 11-23-2023 Monocytes/100 WBC (Bld)14.4 %.[facility] FoundationNeutrophils Auto (Bld) [#/Vol]Ordered By: Mayco Velasquez on 39-50-4577Hnkkwyldjgy (Bld) [#/Vol]2.3 10*3/uL1.8-7.7FAshtabula County Medical CenterNeutrophils/100 WBC Auto (Bld) Ordered By: Mayco Velasquez on 34-50-9540Vmixinkkonf/100 WBC (Bld)52.7 %.[facility] FoundationNitrite Test strip Ql (U)Ordered By: Mayco Velasquez on 19-75-1367Aarjksu Ql (U)NegativeNegativeCleveland Clinic FoundationNo Panel InformationOrdered By: Mayco Velasquez on 48-68-0583Qsytwtwws GFR (CKD-EPI)> 60.0 mL/MinCleveland Clinic FoundationPharmacy Creatinine Clearance (Chem N/AFAshtabula County Medical CenterNucleated erythrocytes [Presence] in Blood by Automated countOrdered By: Mayco Velasquez on 07-36-4214Dqkwhokzw RBC Auto Ql (Bld)0.1 /100{WBC}0-0.5FAshtabula County Medical CenterPlatelet mean volume Auto (Bld) [Entitic vol]Ordered By: Mayco Velasquez on 04-45-2075Nmjeebwn mean volume (Bld) [Entitic vol]7.9 fL6.3-10.7FAshtabula County Medical Center Platelets Auto (Bld) [#/Vol]Ordered By: Mayco Velasquez on 74-47-0923Gkzrrckxj (Bld) [#/Vol]289 10*3/uK056-593RwmiovjhjCleveland Clinic FoundationPotassium [Moles/volume] in Serum or PlasmaOrdered By: Mayco Velasquez on 86-51-5734Yyfoouymi [Moles/Vol]4.9 mmol/L3.5-5.1FAshtabula County Medical CenterProtein Test strip (U) [Mass/Vol]Ordered By: Mayco Velasquez on 19-39-0851Zycovzr (U) [Mass/Vol]Trace mg/dLHighNegativeCleveland Clinic FoundationProtein [Mass/volume] in Serum or PlasmaOrdered By: Mayco Velasquez on 19-87-4995Hoftaft [Mass/Vol]6.7 g/dL 6.4-8.9[facility] FoundationRBC Auto (Bld) [#/Vol]Ordered By: Mayco Velasquez on 93-96-1890STE (Bld) [#/Vol]4.91 10*6/uL3.60-5.00[facility] Systemerum or plasma albumin/globulin mass ratioOrdered By: Mayco Velasquez on 14-93-7907Lejwqgo/Globulin [Mass ratio]2.2 {ratio}[facility] Health Systemerum or plasma anion gap determinationOrdered By: Mayco Velasquez on 74-73-0612Zwcdk gap [Moles/Vol]12.1 mmol/L6.0-15.0[facility] Health Systemerum or plasma high density lipoprotein (HDL) cholesterol measurement Ordered By: Mayco Velasquez on 83-29-8917Gvzcbwiapjp in HDL [Mass/Vol]54 mg/dL23-92 [facility] FoundationComment on above:HDL CHOL ATP-III CLASSIFICATION Cardiovascular RiskHDL > or equal to 60 mg/dL LOWHDL < 40 mg/dL HIGHSerum or plasma total cholesterol/high density lipoprotein (HDL) cholesterol mass ratOrdered By: Mayco Velasquez on 11-05-4661Msivsmnlvvn.total/Cholesterol in HDL [Mass ratio]2.3 {ratio}<5.0[facility] Health Systemodium [Moles/volume] in Serum or PlasmaOrdered By: Mayco Velasquez on 33-89-5065Rcxrdd [Moles/Vol]137 mmol/P580-803YxloiwmemUniversity Hospitals Health Systempecific gravity Test strip (U) [Rel density]Ordered By: Mayco Velasquez on 34-40-5612Kspjyllo gravity (U) [Rel density]1.0091.001-1.030[facility] Transferrin [Mass/volume] in Serum or PlasmaOrdered By: Mayco Velasquez on 64-63-6330Fczyfiveowc [Mass/Vol]232 mg/pM819-436JoqeecedqCleveland Clinic FoundationTriglyceride [Mass/volume] in Serum or PlasmaOrdered By: Mayco Velasquez on 24-57-9187Fhntpzszrxcg [Mass/Vol]138 mg/dL0-149[facility] Comment on above:TRIG ATP III CLASSIFICATIONTRIG less than 150 mg/dL NormalTRIG 150-199 mg/dL Borderline highTRIG 200-500 mg/dL High TRIG greater than 500 mg/dL Very highStandard traceable to the Center for Disease Conrtrol and Prevention (CDC) test method.Urea nitrogen [Mass/volume] in Serum or PlasmaOrdered By: Mayco Velasquez on 25-91-5760Luzi nitrogen [Mass/Vol]8 mg/dL7-25[facility] FoundationUrine appearanceOrdered By: Mayco Velasquez on 25-18-2104Xcmvglrdjd (U)ClearClearFAshtabula County Medical CenterUrine culture routineOrdered By: Mayco Velasquez on 30-64-3671Ytvcmxnc identified Cx Nom (U)Streptococcus anginosus AbnormalCleveland Clinic FoundationUrobilinogen Test strip (U) [Mass/Vol] Ordered By: Mayco Velasquez on 43-41-2585Twujdulylofu (U) [Mass/Vol]Normal mg/dL NormalCleveland Clinic FoundationVitamin D+Metabolites [Mass/volume] in Serum or PlasmaOrdered By: Mayco Velasquez on 30-29-0493Eirlkdd D+Metabolites [Mass/Vol]56.9 ng/pB70-057MpiuwzhvlCleveland Clinic FoundationComment on above: VITAMIN D STATUS 25(OH)VITAMIN D RANGE (ng/mL) Deficient <20 Insufficient 20 to <43Zubjqjpdla94 to 100Reference: Sarah MF,Ligia LOUIS, Skylar BALDERAS, et al. Evaluation,treatment, and prevention of vitamin D deficiency; an Endocrine Society clinical practice guideline. JCEM. 2010; 96(7):1911-30.WBC Auto (Bld) [#/Vol]Ordered By: Mayco Velasquez on 43-97-5553OUA (Bld) [#/Vol]4.4 10*3/uL 3.8-11.6FAshtabula County Medical CenterpH Test strip (U)Ordered By: Mayco Velasquez on 60-55-0876mW (U)7.5 [pH]5.0-9.0[facility] FoundationCNPNon 98-18-7963HLPKTgcqbkiiv (SPNMMN) SUMA SCOTT ([id number]) 1945 F Date Time Provider Department 11/17/23 ROMAN WAGGONER SPNMMN During your visit today, we recorded the [...] answered questions related to spine injection procedure. -Trauma Surgeon is needed and for transport truck driver to wait in lobby on [...] anxiety. Patient verbalized understanding. Patient given number [phone], spine injections schedulers, if there is any [...] (None) Encounter Status:Closed by GISELLE VILLASEÑOR on 11/17/23[facility] HospitalTavo [id number] Visit (SPMEST) SUMA SCOTT ([id number]) 1945 F Date Time Provider Department 11/05/23 8:00 AM SARBJIT ANDREA SPMEST During your visit today, we recorded the following information about you: Sarbjit Andrea, DO 11/08/2023 9:53 AM Signed Spine Care [...] GI: Negative : Negati (more content not included)...NormalSelect Medical [facility] Clinic Rehabilitation Hospital, Edwin ShawXR LUMBAR 4V AP/LAT/ FLEX/EXTon 93-17-7529YP LUMBAR 4V AP/LAT/ FLEX/EXT* * *Final Report* [...] the pars interarticularis at L5 on radiography. Lauh-fn-ghlwtoby bilateral hip osteoarthritis. Soft tissues: Right upper quadrant surgical clips. IMPRESSION: Dextroscoliosis with multilevel degenerative disc disease most severe at L5-S1 with grade 2-3 anterolisthesis L5 on S1 with instability on flexion-extension radiographs. Route Delivery Supervisor: [facility] Transcribe Date/Time: Nov 05 2023 10:58A Dictated by : SHA GREENE MD This examination was interpreted and the report reviewed and electronically signed by: SHA GREENE MD on Nov 05 2023 11:01AM EST [id number] Medical [facility], Edwin ShawXR Lumbar spine Views W flexion and W extensionon 24-13-7264MLRWSKAUSH: Dextroscoliosis with multilevel degenerative disc disease most severe at L5-S1 with grade 2-3 anterolisthesis L5 on S1 with instability on flexion-extension radiographs. Route Delivery Supervisor: [facility] Transcribe Date/Time: Nov 05 2023 10:58A Dictated by : SHA GREENE MD This examination was interpreted and the report reviewed and electronically signed by: SHA GREENE MD on Nov 05 2023 11:01AM [...] the pars interarticularis at L5 on radiography. Dcjo-ya-gohldjtr bilateral hip osteoarthritis. Soft tissues: Right upper quadrant surgical clips. DIVISION OF RADIOLOGYProvider, [facility] [place] - 11/05/2023 * * *Final Report* * [...] the pars interarticularis at L5 on radiography. Xeet-oc-jqmexufu bilateral hip osteoarthritis. Soft tissues: Right upper quadrant surgical clips. IMPRESSION IMPRESSION: Dextroscoliosis with multilevel degenerative disc disease most severe at L5-S1 with grade 2-3 anterolisthesis L5 on S1 with instability on flexion-extension radiographs. Route Delivery Supervisor: [facility] Transcribe Date/Time: Nov 05 2023 10:58A Dictated by : SHA GREENE MD This examination was interpreted and the report reviewed and electronically signed by: SHA GREENE MD on Nov 05 2023 11:01AM EST [facility] HospitalRadiology Study observation (narrative)[facility] Lumbar spine Views W flexion and W extensionOrdered By: Ccf Provider on 11-05-2023 [facility] HospitalCalcium [Mass/volume] in Serum or PlasmaOrdered By: Deb Zamora on 63-46-7094Nuszapl [Mass/Vol]10.1 mg/dL8.6-10.3FAshtabula County Medical CenterCarbon dioxide, total [Moles/volume] in Serum or PlasmaOrdered By: Deb Zamora on 04-19-1144BR5 [Moles/Vol]28.6 mmol/L21.0-31.0[facility] FoundationChloride [Moles/volume] in Serum or PlasmaOrdered By: Deb Zamora on 05-15-3663Xxvwoyan [Moles/Vol]98 mmol/C22-080OsdaqwqivCleveland Clinic FoundationCreatinine [Mass/volume] in Serum or PlasmaOrdered By: Deb Zamora on 94-93-5322Mdiwsltjpj [Mass/Vol]0.82 mg/dL0.60-1.20[facility] FoundationGlucose [Mass/volume] in Serum or PlasmaOrdered By: Deb Zamora on 07-93-2615Mcbcgpw [Mass/Vol]94 mg/kH62-950JuwnpbjbgCleveland Clinic FoundationComment on above:ADA recommended reference rangeRandom Glucose Reference Range is dependent on time and content of last meal. Glucose of more than 200 mg/dL in a nonstressed, ambulatory subject supports the diagnosisof Diabetes Mellitus.No Panel InformationOrdered By: Deb Zamora on 10-05-2023 Estimated GFR (CKD-EPI)> 60.0 mL/MinCleveland Clinic FoundationPharmacy Creatinine Clearance (ChemN/[facility] HospitalPotassium [Moles/volume] in Serum or PlasmaOrdered By: Deb Zamora on 10-05-2023 Potassium [Moles/Vol]4.5 mmol/L3.5-5.1FAshtabula County Medical Centererum or plasma anion gap determinationOrdered By: Deb Zamora on 53-32-0961Rqwxh gap [Moles/Vol]13.9 mmol/L6.0-15.0[facility] Health Systemodium [Moles/volume] in Serum or PlasmaOrdered By: Deb Zamora on 89-40-4327Nzljlm [Moles/Vol]136 mmol/L877-787TtfcfceqpCleveland Clinic FoundationUrea nitrogen [Mass/volume] in Serum or PlasmaOrdered By: Deb Zamora on 37-46-1230Eele nitrogen [Mass/Vol]10 mg/dL7-25[facility] FoundationCNPNon 98-28-9869XJTHItlfeokyw (INTMAL) SUMA SCOTT ([id number]) 1945 F Date Time Provider Department 08/18/23 BELINDA WEAVER During your visit today, we recorded the following information about you: Latoya Willoughby 08/18/2023 4:38 PM Signed doo Pharmacy is calling Belinda Weaver MD today to request clarification on hydrOXYchloroQUINE (PLAQUENIL)'s instructions. Please call pharmacy to clarify. Patient has been identified by name and birthdate. Duration of symptoms: N/A Person calling: Pharmacy Call patient at: [phone] Was an appointment scheduled: No Closing statement: Results or non-symptom based questions: Thank you for calling [facility], your call will be returned within the next business day. Thank you, Latoya Willoughby Allergies As of Date: 08/18/2023 (No Known Allergies) Date Reviewed: 08/17/2023 Reviewed by: Jany Judd RN - Fully Assessed Reason for Visit: Medication Question [3434] Visit Diagnosis:Primary osteoarthritis involving multiple joints [M15.9] [...] med. Encounter Status:Closed by BELINDA WEAVER on 08/19/23[facility] [id number] Visit (RHEUAV) SUMA SCOTT ([id number]) 1945 F Date Time Provider Department 08/17/23 2:20 PM BELINDA WEAVER BELEMSimona During your visit today, we recorded the following information about you: Pulse Blood pressure Weight 72/minute 130/79 86.3 kg Belinda Weaver MD 08/17/2023 2:48 PM Signed [facility] Date of Service: 08/17/2023 Patient: Suma Scott Medical Record: [id number] Primary Care Physician: Mayco Velasquez DO Last Rheumatology visit: 08/07/2022 (with Belinda Weaver) History of Present Illness Suma Scott is a 78 year old female who presents on 08/17/2023 for an in-person visit for evaluation of Osteoarthritis. She is currently taking hydroxychloroquine sulfate. HISTORY OF PRESENT ILLNESS This patient is known to me from my previous practice with [facility] with a diagnosis of osteoarthritis. This patient [...] and 600 mg in (more content not included)...NormalSelect Medical Cleveland Clinic Rehabilitation Hospital, Edwin ShawBacteria [Presence] in Urine by AutomatedOrdered By: Mayco Velasquez on 41-78-4558Pfylhgga Auto Ql (U)None seenNone SeenCleveland Clinic FoundationBilirubin Test strip Ql (U)Ordered By: Mayco Vleasquez on 06-12-2023 Bilirubin Ql (U)NegativeNegativeCleveland Clinic FoundationColor Auto (U) Ordered By: Mayco Velasquez on 11-91-1019Codki (U)Dark yellowYellowCleveland Clinic FoundationErythrocytes [#/area] in Urine sediment by Automated countOrdered By: Mayco Velasquez on 83-55-1496KRN Auto (Urine sed) [#/Area]0-1 [HPF]0-4FAshtabula County Medical CenterKetones Auto test strip (U) [Mass/Vol] Ordered By: Mayco Velasquez on 13-58-7933Mciybml (U) [Mass/Vol]NegativeNegative [facility] FoundationLaboratory - UrinalysisOrdered By: Mayco Velasquez on 71-32-9263Abudczy casts LM Ql (Urine sed)0-8 [LPF]0-8[facility] FoundationLeukocytes [#/area] in Urine sediment by Automated countOrdered By: Mayco Velasquez on 50-51-9711GNA Auto (Urine sed) [#/Area]0-1 [HPF]0-4FAshtabula County Medical CenterNitrite Test strip Ql (U)Ordered By: Mayco Velasquez on 97-21-0672Lovvfxl Ql (U)NegativeNegKettering Health – Soin Medical CenterProtein Auto test strip (U) [Mass/Vol]Ordered By: Mayco Velasquez on 31-04-7621Svqdyof (U) [Mass/Vol]NegativeNegativeUniversity Hospitals Health Systempecific gravity Auto test strip (U) [Rel density]Ordered By: Mayco Velasquez on 29-87-7058Rnwaeoti gravity (U) [Rel density]1.0171.001-1.030[facility] Squamous epithelial cells detection in urine sediment by light microscopyOrdered By: Mayco Velasquez on 62-45-0353Zxnvgcypmv cells.squamous LM Ql (Urine sed)None seen [HPF]0-2FAshtabula County Medical CenterUrine clarity by refractometry automatedOrdered By: Mayco Velasquez on 10-35-9163Iqsyvmw Refractometry automated (U)ClearClearFAshtabula County Medical CenterUrine culture routineOrdered By: Mayco Velasquez on 71-54-2551Hqgsjxtc identified Cx Nom (U)Escherichia coli [facility] FoundationUrine glucose measurement by automated test strip (mass/volume)Ordered By: Mayco Velasquez on 66-26-2297Skwfxua Auto test strip (U) [Mass/Vol]Normal mg/dLNormLancaster Municipal HospitalUrine hemoglobin detection by automated test stripOrdered By: Mayco Velasquez on 55-42-7337Quypuoexxb Auto test strip Ql (U)NegativeNegKettering Health – Soin Medical CenterUrine leukocyte esterase detection by automated test stripOrdered By: Mayco Velasquez on 94-73-5690Qvqzhyemp esterase Auto test strip Ql (U)Negative NegativeCleveland Clinic FoundationUrobilinogen Auto test strip (U) [Mass/Vol]Ordered By: Mayco Velasquez on 90-20-3121Sekxkqndvgno (U) [Mass/Vol] Normal mg/dLNormLancaster Municipal HospitalpH Auto test strip (U)Ordered By: Mayco Velasquez on 76-45-7450wA (U)7.0 [pH]5.0-9.0[facility] FoundationAutomated erythrocytes count in urine sediment (number/area)Ordered By: Mayco Velasquez on 94-63-7655HXM Auto (Urine sed) [#/Area]1-2 [HPF]0-4FAshtabula County Medical CenterAutomated leukocytes count in urine sediment (number/area)Ordered By: Mayco Velasquez on 11-06-2992XPY Auto (Urine sed) [#/Area] 1-2 [HPF]0-4FAshtabula County Medical CenterBilirubin Test strip Ql (U)Ordered By: Mayco Velasquez on 90-71-0703Nbvzwsjzd Ql (U)NegativeNegativeCleveland Clinic FoundationColor Auto (U)Ordered By: Mayco Velasquez on 30-43-7486Sojju (U)Dark yellowYellowCleveland Clinic FoundationKetones Auto test strip (U) [Mass/Vol]Ordered By: Mayco Velasquez on 99-28-7271Syrfiki (U) [Mass/Vol]Negative NegativeCleveland Clinic FoundationLaboratory - UrinalysisOrdered By: Mayco Velasquez on 57-72-7804Viovjnl casts LM Ql (Urine sed)0-8 [LPF]0-8[facility] FoundationNitrite Test strip Ql (U)Ordered By: Mayco Velasquez on 65-26-3773Pbqxtaa Ql (U)NegativeNegKettering Health – Soin Medical CenterProtein Auto test strip (U) [Mass/Vol]Ordered By: Mayco Velasquez on 91-92-9460Nvrygjv (U) [Mass/Vol]NegativeNegHighland District Hospitalpecific gravity Auto test strip (U) [Rel density]Ordered By: Mayco Velasquez on 09-25-4343Wisdxvjs gravity (U) [Rel density]1.0211.001-1.030[facility] Squamous epithelial cells detection in urine sediment by light microscopyOrdered By: Mayco Velasquez on 08-24-0701Xgltwwdlhr cells.squamous LM Ql (Urine sed)0-1 [HPF]0-2FAshtabula County Medical CenterUrine bacteria detection by automated methodOrdered By: Mayco Velasquez on 44-66-2767Wpivlxnw Auto Ql (U)None seenNone SeenCleveland Clinic FoundationUrine clarity by refractometry automated Ordered By: Mayco Velasquez on 05-54-9654Udpxiva Refractometry automated (U)Clear ClearCleveland Clinic FoundationUrine culture routineOrdered By: Mayco Velasquez on 11-35-9966Ymnivwuu identified Cx Nom (U)Escherichia coliCleveland Clinic FoundationUrine glucose measurement by automated test strip (mass/volume)Ordered By: Mayco Velasquez on 20-64-0882Eqgyqqn Auto test strip (U) [Mass/Vol]Normal mg/dLNormalCleveland Clinic FoundationUrine hemoglobin detection by automated test stripOrdered By: Mayco Velasquez on 06-01-2023 Hemoglobin Auto test strip Ql (U)NegativeNegKettering Health – Soin Medical CenterUrine leukocyte esterase detection by automated test stripOrdered By: Mayco Velasquez on 17-69-3341Gkzayfjlb esterase Auto test strip Ql (U)1+Negative [facility] FoundationUrobilinogen Auto test strip (U) [Mass/Vol] Ordered By: Mayco Velasquez on 66-30-9124Dnumvunpqmtr (U) [Mass/Vol]Normal mg/dL NormalCleveland Clinic FoundationpH Auto test strip (U)Ordered By: Mayco Velasquez on 96-96-5983sK (U)6.0 [pH]5.0-9.0[facility] Automated erythrocytes count in urine sediment (number/area)Ordered By: Mayco Velasquez on 27-68-0659LXN Auto (Urine sed) [#/Area]0-1 [HPF]0-4FAshtabula County Medical CenterAutomated leukocytes count in urine sediment (number/area)Ordered By: Mayco Velasquez on 87-45-6335UJN Auto (Urine sed) [#/Area]None seen [HPF]0-4 [facility] FoundationBilirubin Test strip Ql (U)Ordered By: Mayco Velasquez on 34-70-2018Nscremgsn Ql (U)NegativeNegKettering Health – Soin Medical CenterColor Auto (U)Ordered By: Mayco Velasquez on 24-32-0525Vwhwc (U)YellowYellow [facility] FoundationKetones Auto test strip (U) [Mass/Vol]Ordered By: Mayco Velasquez on 06-05-4934Elgkkfz (U) [Mass/Vol]NegativeNegativeCleveland Clinic FoundationLaboratory - UrinalysisOrdered By: Mayco Velasquez on 75-19-4571Wpirkkn casts LM Ql (Urine sed)None seen [LPF]0-8[facility] FoundationNitrite Test strip Ql (U)Ordered By: Mayco Velasquez on 05-25-2023 Nitrite Ql (U)NegativeNegKettering Health – Soin Medical CenterProtein Auto test strip (U) [Mass/Vol]Ordered By: Mayco Velasquez on 75-85-3386Pdkcgen (U) [Mass/Vol]NegativeNegHighland District Hospitalpecific gravity Auto test strip (U) [Rel density]Ordered By: Mayco Velasquez on 78-77-6003Mganujpp gravity (U) [Rel density]1.0101.001-1.030[facility] Squamous epithelial cells detection in urine sediment by light microscopyOrdered By: Mayco Velasquez on 28-04-4544Gaimrixqye cells.squamous LM Ql (Urine sed)None seen [HPF]0-2FAshtabula County Medical CenterUrine bacteria detection by automated methodOrdered By: Mayco Velasquez on 25-35-4687Aqyohuou Auto Ql (U)None seenNone SeenCleveland Clinic FoundationUrine clarity by refractometry automatedOrdered By: Mayco Velasquez on 27-15-8281Aivbqzn Refractometry automated (U)ClearClearFAshtabula County Medical CenterUrine culture routineOrdered By: Mayco Velasquez on 17-99-7413Aqppklzm identified Cx Nom (U)Pseudomonas aeruginosa [facility] FoundationUrine glucose measurement by automated test strip (mass/volume)Ordered By: Mayco Velasquez on 16-20-6566Domqany Auto test strip (U) [Mass/Vol]Normal mg/dLNoBethesda North HospitalUrine hemoglobin detection by automated test stripOrdered By: Mayco Velasquez on 67-57-2137Mhefxvwist Auto test strip Ql (U)NegativeNegKettering Health – Soin Medical CenterUrine leukocyte esterase detection by automated test stripOrdered By: Mayco Velasquez on 03-07-5195Qwjapryxu esterase Auto test strip Ql (U)Negative NegativeCleveland Clinic FoundationUrobilinogen Auto test strip (U) [Mass/Vol]Ordered By: Mayco Velasquez on 98-87-0218Wiuwjjjemebx (U) [Mass/Vol] Normal mg/dLNormLancaster Municipal HospitalpH Auto test strip (U)Ordered By: Mayco Velasquez on 64-70-6186hK (U)7.5 [pH]5.0-9.0[facility] FoundationAlanine aminotransferase [Enzymatic activity/volume] in Serum or Plasma Ordered By: Mayco Velasquez on 67-28-1399PAV [Catalytic activity/Vol]42 U/L7-52 [facility] FoundationAlbumin [Mass/volume] in Serum or Plasma by Bromocresol green (BCG) dye binding methoOrdered By: Mayco Velasquez on 05-15-2023 Albumin BCG dye [Mass/Vol]4.7 g/dL3.5-5.7FAshtabula County Medical Center Alkaline phosphatase [Enzymatic activity/volume] in Serum or PlasmaOrdered By: Mayco Velasquez on 74-79-4702DGE [Catalytic activity/Vol]87 U/M22-045SdkwxabzlCleveland Clinic FoundationAspartate aminotransferase [Enzymatic activity/volume] in Serum or PlasmaOrdered By: Mayco Velasquez on 02-07-1954JES [Catalytic activity/Vol]33 U/F01-22BjspxachhCleveland Clinic FoundationAutomated erythrocytes count in urine sediment (number/area)Ordered By: Mayco Velasquez on 39-08-5451ZXY Auto (Urine sed) [#/Area]0-1 [HPF]0-4FAshtabula County Medical CenterAutomated leukocytes count in urine sediment (number/area)Ordered By: Mayco Velasquez on 67-59-1558LOX Auto (Urine sed) [#/Area]1-2 [HPF]0-4FAshtabula County Medical CenterBasophils Auto (Bld) [#/Vol]Ordered By: Mayco Velasquez on 05-15-2023 Basophils (Bld) [#/Vol]0.0 10*3/uL0.0-0.2FAshtabula County Medical Center Basophils/100 WBC Auto (Bld)Ordered By: Mayco Velasquez on 01-51-4078Ruslfyivx/100 WBC (Bld)0.7 %.[facility] FoundationBilirubin Test strip Ql (U) Ordered By: Mayco Velasquez on 74-44-0737Inycagwnr Ql (U)NegativeNegativeCleveland Clinic FoundationBilirubin.total [Mass/volume] in Serum or PlasmaOrdered By: Mayco Velasquez on 32-86-6227Trmlhbggw [Mass/Vol]0.5 mg/dL0.3-1.0[facility] FoundationCalcium [Mass/volume] in Serum or PlasmaOrdered By: Mayco Velasquez on 10-93-8323Huxakmj [Mass/Vol]9.6 mg/dL8.6-10.3FAshtabula County Medical CenterCarbon dioxide, total [Moles/volume] in Serum or PlasmaOrdered By: Mayco Velasquez on 99-55-0625IL6 [Moles/Vol]33.3 mmol/L21.0-31.0[facility] FoundationChloride [Moles/volume] in Serum or PlasmaOrdered By: Mayco Velasquez on 51-78-1918Zmnchejc [Moles/Vol]101 mmol/V38-795XkvcjpiytCleveland Clinic FoundationCholesterol [Mass/volume] in Serum or PlasmaOrdered By: Mayco Velasquez on 54-43-9247Omcpiubdmme [Mass/Vol]133 mg/yR857-663KhnllnsusCleveland Clinic FoundationComment on above:Chol less than 200 mg/dl low riskChol 201-239 mg/dl borderline riskChol 240 mg/dl and greater high riskCholesterol in LDL Calc [Mass/Vol]Ordered By: Mayco Velasquez on 17-28-0663Chbxjhhylkz in LDL [Mass/Vol]41 mg/dL0-100[facility] FoundationComment on above:LDL ATP III CLASSIFICATIONLDL less than 100 mg/dL OptimalLDL 100-129 mg/dL Near or above klfbjbwBBH181-612 mg/dL Borderline highLDL 160-189 mg/dL HighLDL greater than 189 mg/dL Very highCholesterol in VLDL Calc [Mass/Vol]Ordered By: Mayco Velasquez on 32-64-2062Sozyjjzmzsz in VLDL [Mass/Vol]29 mg/dLCleveland Clinic FoundationColor Auto (U)Ordered By: Mayco Velasquez on 43-88-1858Neflp (U)YellowYellow [facility] FoundationCreatinine [Mass/volume] in Serum or Plasma Ordered By: Mayco Velasquez on 06-79-0774Xbennmhoyo [Mass/Vol]0.83 mg/dL0.60-1.20 [facility] FoundationEosinophils Auto (Bld) [#/Vol]Ordered By: Mayco Velasquez on 48-78-8642Gzkxmlejfih (Bld) [#/Vol]0.2 10*3/uL0.0-0.45[facility] FoundationEosinophils/100 WBC Auto (Bld)Ordered By: Mayco Velasquez on 12-33-1402Cfwparuvapv/100 WBC (Bld)3.8 %.[facility] Erythrocyte distribution width Auto (RBC) [Ratio]Ordered By: Mayco Velasquez on 87-67-1743Boqbfjlsjvo distribution width (RBC) [Ratio]13.7 %11.9-15.3FAshtabula County Medical CenterFerritin [Mass/volume] in Serum or PlasmaOrdered By: Mayco Velasquez on 31-05-4107Qzuxeacd [Mass/Vol]43.5 ng/mL11.0-306.8[facility] FoundationGlobulin Calc (S) [Mass/Vol]Ordered By: Mayco Velasquez on 94-12-1732Uqeggynz (S) [Mass/Vol]2.2 g/dLCleveland Clinic Foundation Glucose [Mass/volume] in Serum or PlasmaOrdered By: Mayco Velasquez on 05-15-2023 Glucose [Mass/Vol]88 mg/cE50-517OhnygzudxCleveland Clinic FoundationComment on above:ADA recommended reference rangeRandom Glucose Reference Range is dependent on time and content of last meal. Glucose of more than 200 mg/dL in a nonstressed, ambulatory subject supports the diagnosisof Diabetes Mellitus. Glucose mean value [Mass/volume] in Blood Estimated from glycated hemoglobin Ordered By: Mayco Velasquez on 32-16-2399Npyuyeb glucose Estimated from glycated hemoglobin (Bld) [Mass/Vol]111 mg/dLCleveland Clinic FoundationHematocrit Auto (Bld) [Volume fraction]Ordered By: Mayco Velasquez on 03-95-5149Spyucjjroe (Bld) [Volume fraction]42.6 %34.0-46.4FAshtabula County Medical Center Hemoglobin A1c percentageOrdered By: Mayco Velasquez on 36-18-7747FzT9e (Bld) [Mass fraction]5.5 %4.3-5.6FAshtabula County Medical CenterComment on above: Increased risk for diabetes: 5.7 - 6.4diabetes: >6.4glycemic control for adults with diabetes: <7.0Hemoglobin [Mass/volume] in BloodOrdered By: Mayco Velasquez on 90-99-0063Bgcwdzwbty (Bld) [Mass/Vol]14.2 g/dL11.8-15.4FAshtabula County Medical CenterIron [Mass/volume] in Serum or PlasmaOrdered By: Mayco Velasquez on 94-39-7636Pqqq [Mass/Vol]71 ug/vV20-045BcbtoqabeCleveland Clinic FoundationIron binding capacity [Mass/volume] in Serum or PlasmaOrdered By: Mayco Velasquez on 47-10-1150Cnzb binding capacity [Mass/Vol]370 ug/gV039-836KvxeyxfuyCleveland Clinic FoundationIron saturation [Mass Fraction] in Serum or PlasmaOrdered By: Mayco Velasquez on 52-37-1598Dmto saturation [Mass fraction]19.2 %20-50[facility] FoundationKetones Auto test strip (U) [Mass/Vol]Ordered By: Mayco Velasquez on 30-11-6072Ribvsua (U) [Mass/Vol]NegativeNegativeCleveland Clinic FoundationLaboratory - UrinalysisOrdered By: Mayco Velasquez on 05-15-2023 Hyaline casts LM Ql (Urine sed)0-8 [LPF]0-8[facility] Leukocytes [#/volume] corrected for nucleated erythrocytes in Blood by Automated counOrdered By: Mayco Velasquez on 40-23-2673GEA corrected for nucl RBC Auto (Bld) [#/Vol]5.1 10*3/uL3.8-11.6FAshtabula County Medical CenterLymphocytes Auto (Bld) [#/Vol]Ordered By: Mayco Velasquez on 18-35-0207Xdkqcgjtaxu (Bld) [#/Vol]1.6 10*3/uL1.00-4.8[facility] FoundationLymphocytes/100 WBC Auto (Bld) Ordered By: Mayco Velasquez on 73-07-5893Nudyozyaivj/100 WBC (Bld)32.2 %.[facility] Auto (RBC) [Entitic mass]Ordered By: Mayco Velasquez on 92-85-0284URJ (RBC) [Entitic mass]28.2 pg24.7-34.3FAshtabula County Medical CenterMCHC Auto (RBC) [Mass/Vol]Ordered By: Mayco Velasquez on 24-16-6524OWBX (RBC) [Mass/Vol]33.4 g/dL32.0-35.0[facility] FoundationMCV Auto (RBC) [Entitic vol]Ordered By: Mayco Velasquez on 18-73-9041SFI (RBC) [Entitic vol]84.4 jO58-840PiaxfnqqtCleveland Clinic FoundationMonocytes Auto (Bld) [#/Vol]Ordered By: Mayco Velasquez on 48-22-6819Qkxduggtf (Bld) [#/Vol]0.6 10*3/uL0.0-0.8[facility] FoundationMonocytes/100 WBC Auto (Bld)Ordered By: Mayco Velasquez on 30-82-1726Ffzqbhcwa/100 WBC (Bld)12.1 %.[facility] Neutrophils Auto (Bld) [#/Vol]Ordered By: Mayco Velasquez on 55-75-1001Rglosbmwuvr (Bld) [#/Vol]2.6 10*3/uL1.8-7.7FAshtabula County Medical CenterNeutrophils/100 WBC Auto (Bld)Ordered By: Mayco Velasquez on 92-07-8118Wudumyhbkgi/100 WBC (Bld) 51.2 %.[facility] FoundationNitrite Test strip Ql (U)Ordered By: Mayco Vealsquez on 83-56-1887Beqhxkq Ql (U)NegativeNegativeCleveland Clinic FoundationNo Panel InformationOrdered By: Mayco Velasquez on 05-15-2023 Estimated GFR (CKD-EPI)> 60.0 mL/MinCleveland Clinic FoundationPharmacy Creatinine Clearance (ChemN/AFAshtabula County Medical CenterNucleated erythrocytes [Presence] in Blood by Automated countOrdered By: Mayco Velasquez on 54-37-1991Teguzspce RBC Auto Ql (Bld)0.1 /100{WBC}0-0.5FAshtabula County Medical CenterPlatelet mean volume Auto (Bld) [Entitic vol]Ordered By: Mayco Velasquez on 99-04-0798Nftjlowu mean volume (Bld) [Entitic vol]8.0 fL6.3-10.7 [facility] FoundationPlatelets Auto (Bld) [#/Vol]Ordered By: Mayco Velasquez on 29-36-6625Tvqeejqet (Bld) [#/Vol]258 10*3/lN619-847LreqvtnjjCleveland Clinic FoundationPotassium [Moles/volume] in Serum or PlasmaOrdered By: Mayco Velasquez on 84-61-1396Sbbpzmrwj [Moles/Vol]4.7 mmol/L3.5-5.1FAshtabula County Medical CenterProtein Auto test strip (U) [Mass/Vol]Ordered By: Mayco Velasquez on 94-53-5111Sccnvnt (U) [Mass/Vol]NegativeNegativeCleveland Clinic FoundationProtein [Mass/volume] in Serum or PlasmaOrdered By: Mayco Velasquez on 76-23-2160Cimuixr [Mass/Vol]6.9 g/dL6.4-8.9[facility] FoundationRBC Auto (Bld) [#/Vol]Ordered By: Mayco Velasquez on 19-98-3708VTE (Bld) [#/Vol]5.04 10*6/uL3.60-5.00[facility] Systemerum or plasma albumin/globulin mass ratioOrdered By: Mayco Velasquez on 05-15-2023 Albumin/Globulin [Mass ratio]2.1 {ratio}[facility] Systemerum or plasma anion gap determinationOrdered By: Mayco Velasquez on 54-41-9554Niegp gap [Moles/Vol]8.4 mmol/L6.0-15.0[facility] Systemerum or plasma high density lipoprotein (HDL) cholesterol measurementOrdered By: Mayco Velasquez on 55-65-7283Agceviigkya in HDL [Mass/Vol]62 mg/zJ67-96QibbyvqswCleveland Clinic FoundationComment on above:HDL CHOL ATP-III CLASSIFICATION Cardiovascular RiskHDL > or equal to 60 mg/dL LOWHDL < 40 mg/dL HIGHSerum or plasma total cholesterol/high density lipoprotein (HDL) cholesterol mass ratOrdered By: Mayco Velasquez on 33-92-3424Jmfzsbsnhcj.total/Cholesterol in HDL [Mass ratio]2.1 {ratio}<5.0[facility] Health Systemodium [Moles/volume] in Serum or PlasmaOrdered By: Mayco Velasquez on 87-01-9544Iwdqkl [Moles/Vol]138 mmol/V779-784 [facility] Systempecific gravity Auto test strip (U) [Rel density]Ordered By: Mayco Velasquez on 54-94-3747Vnuapscl gravity (U) [Rel density] 1.0091.001-1.030[facility] Health Systemquamous epithelial cells detection in urine sediment by light microscopyOrdered By: Mayco Velasquez on 62-57-6050Zixwjtguug cells.squamous LM Ql (Urine sed)0-1 [HPF]0-2FAshtabula County Medical CenterThyrotropin [Units/volume] in Serum or PlasmaOrdered By: Mayco Velasquez on 66-57-6227LHJ Qn2.95 m[IU]/L0.45-5.33[facility] FoundationTransferrin [Mass/volume] in Serum or PlasmaOrdered By: Mayco Velasquez on 10-22-0940Yoasobvmhba [Mass/Vol]264 mg/aI222-964BbkjzfysjCleveland Clinic FoundationTriglyceride [Mass/volume] in Serum or PlasmaOrdered By: Mayco Velasquez on 94-11-6433Juplqgphjssj [Mass/Vol]149 mg/dL0-149[facility] Comment on above:TRIG ATP III CLASSIFICATIONTRIG less than 150 mg/dL NormalTRIG 150-199 mg/dL Borderline highTRIG 200-500 mg/dL High TRIG greater than 500 mg/dL Very highStandard traceable to the Center for Disease Conrtrol and Prevention (CDC) test method.Urea nitrogen [Mass/volume] in Serum or PlasmaOrdered By: Mayco Velasquez on 66-47-0066Yaqn nitrogen [Mass/Vol]10 mg/dL7-25[facility] FoundationUrine bacteria detection by automated methodOrdered By: Mayco Velasquez on 50-39-1959Oudrmoyn Auto Ql (U)None seenNone SeenCleveland Clinic FoundationUrine clarity by refractometry automatedOrdered By: Mayco eVlasquez on 72-64-4578Omcbwqp Refractometry automated (U)ClearCleMiami Valley HospitalUrine culture routineOrdered By: Mayco Velasquez on 05-15-2023 Bacteria identified Cx Nom (U)Escherichia coliCleveland Clinic Foundation Urine glucose measurement by automated test strip (mass/volume)Ordered By: Mayco Velasquez on 45-16-5004Blgcvjn Auto test strip (U) [Mass/Vol]Normal mg/dLNoal [facility] FoundationUrine hemoglobin detection by automated test stripOrdered By: Mayco Velasquez on 95-63-9288Bbrisantuu Auto test strip Ql (U) NegativeNegativeCleveland Clinic FoundationUrine leukocyte esterase detection by automated test stripOrdered By: Mayco Velasquez on 76-33-1338Ndzchrlpv esterase Auto test strip Ql (U)1+NegativeCleveland Clinic Foundation Urobilinogen Auto test strip (U) [Mass/Vol]Ordered By: Mayco Velasquez on 55-40-0927Xxvhsdanvsix (U) [Mass/Vol]Normal mg/dLNoBethesda North HospitalVitamin D+Metabolites [Mass/volume] in Serum or PlasmaOrdered By: Mayco Velasquez on 76-43-5962Kjuublu D+Metabolites [Mass/Vol]51.7 ng/mR42-456 [facility] FoundationComment on above:VITAMIN D STATUS 25(OH)VITAMIN D RANGE (ng/mL) Deficient <20 Insufficient 20 to <82Edisfqvcef55 to 100Reference: Sarah MF,Ligia NC, Skylar BALDERAS, et al. Evaluation,treatment, and prevention of vitamin D deficiency; an Endocrine Society clinical practice guideline. JCEM. 2010; 96(7):1911-30.WBC Auto (Bld) [#/Vol]Ordered By: Mayco Velasquez on 59-78-0152TGU (Bld) [#/Vol]5.1 10*3/uL 3.8-11.6FAshtabula County Medical CenterpH Auto test strip (U)Ordered By: Mayco Velasquez on 42-31-6762fL (U)8.0 [pH]5.0-9.0[facility] FoundationAuto Diffon 80-50-7853Rynjpmjys/100 WBC (Bld)1.1 %Normal0.0-2.0As[facility] County Medical CenterComment on above:Order Comment: Order Added by Discern Expert.Performed By: #### [id number], 1811783, 1634649, 4829151, 98594501, 432825038, 0378639, 02803376, 4441254, 690003016 #### [facility] [address], [place] [address]Idszillav/Leukocytes Auto (Bld) [Pure # fraction]0.1 E9/LNormal 0.0-0.2[facility] Of BaltimoreComment on above:Order Comment: Order Added by Discern Expert.Performed By: #### 4451076, 5658965, 2827540, 5340059, 96928614, 278128097, 9569804, 72492988, 0038808, 218933341 #### [facility] [address], [place] [address]Vzjwviwabqo/100 WBC (Bld)3.4 %Normal0.0-8.0[facility] Medical CenterComment on above:Order Comment: Order Added by Discern Expert.Performed By: #### 0655686, 1348486, 3813354, 2195759, 37292150, 708108975, 7942552, 40860072, 0267922, 185116249 #### [facility] [address] [place] [address]Lotcdbmndgv/Leukocytes Auto (Bld) [Pure # fraction]0.2 E9/L Normal0.0-0.5FMagruder HospitalComment on above:Order Comment: Order Added by Discern Expert.Performed By: #### 0599243, 7163644, 0313708, 8434443, 54107771, 185821975, 7043229, 71286485, 6652474, 194214618 #### [facility] [address], [place] [address]Mdcfxtkeeor/100 WBC (Bld)31.1 %Iyvajk00.0-50.0[facility] Medical CenterComment on above:Order Comment: Order Added by Discern Expert. Performed By: #### 3803219, 0922333, 6964001, 0363692, 69835768, 094324615, 7331121, 30882006, 3723335, 671166177 #### [facility] [address], [place] [address]Berimwfiyjk/Leukocytes Auto (Bld) [Pure # fraction]1.6 E9/L Normal1.0-4.0[facility] Medical CenterComment on above:Order Comment: Order Added by Discern Expert.Performed By: #### 6763932, 5749388, 5631276, 1175461, 73441967, 542798130, 9109755, 39811952, 3774229, 260910835 #### [facility] [address] [place] [address]Jpbkmzoca/100 WBC (Bld)11.9 %Normal4.0-14.0[facility] Medical CenterComment on above:Order Comment: Order Added by Discern Expert.Performed By: #### 3974502, 1299700, 8875220, 4601326, 50061759, 658547864, 8517519, 82331072, 2652910, 665690668 #### [facility] [address] [place] [address]Hankumdzn/Leukocytes Auto (Bld) [Pure # fraction]0.6 E9/LNormal 0.2-1.0[facility] Medical CenterComment on above:Order Comment: Order Added by Discern Expert.Performed By: #### 9417693, 5142412, 5144693, 7059935, 66740705, 797608508, 2547454, 51532801, 5638689, 941686224 #### [facility] [address], [place] [address]Kjqxchyjaxr/100 WBC (Bld)52.5 %Adgxqq89.0-75.0[facility] Medical CenterComment on above:Order Comment: Order Added by Discern Expert. Performed By: #### 6912562, 5396749, 7098098, 1353441, 47142103, 012360066, 7419784, 99352774, 2384195, 957751615 #### [facility] [address], [place] [address]Rysfvrllnje/Leukocytes Auto (Bld) [Pure # fraction]2.7 E9/L Normal2.0-7.5FMagruder HospitalComment on above:Order Comment: Order Added by Discern Expert.Performed By: #### 0775913, 6598708, 2853638, 8338201, 08091199, 733826540, 9946361, 59759343, 9951977, 174179175 #### [facility] [address], [place] [address]OXQ w/ Auto Diffon 10-37-5020Mtvhrsumqhj distribution width (RBC) [Ratio]15.5 %High10.9-14.2FMagruder HospitalComment on above: Performed By: #### 4491209, 5856421, 8966844, 4941342, 57617407, 384383768, 7498668, 07382483, 1327071, 482631418 #### [facility] [address] [place] [address]Ogeqsesmut (Bld) [Volume fraction]40.6 %Ocqcdl16.0-46.0[facility] Medical CenterComment on above:Performed By: #### 4553131, 2260784, 1546614, 5960891, 51793717, 062199895, 7494775, 69996673, 3026435, 980331636 #### [facility] [address], [place] [address]Hfoghbsvns (Bld) [Mass/Vol]13.6 g/bUXzdgrn79.0-16.0[facility] CenterComment on above:Performed By: #### 5595767, 1496546, 9184590, 0843455, 39649042, 431892708, 4580167, 16605745, 3813877, 628663242 #### [facility] [address], [place] [address]FCX (RBC) [Entitic mass]26.9 pgLow27.0-34.0[facility] Medical CenterComment on above:Performed By: #### 8416815, 2372418, 8373263, 7043260, 92448114, 338352685, 2349441, 58891751, 9766413, 487118526 #### [facility] [address], [place] [address]GEOX (RBC) [Mass/Vol]33.4 g/sMVzhslz08.4-36.0[facility] CenterComment on above:Performed By: #### 8827973, 8265899, 7168682, 2773971, 53911641, 241119220, 6191540, 06583570, 7876595, 815991069 #### [facility] [address], [place] [address]MGK (RBC) [Entitic vol]80.6 nXUdogrv80.0-100.0[facility] Medical CenterComment on above:Performed By: #### 4010926, 6661437, 6896840, 6786521, 02262903, 902609533, 0246831, 95130319, 0216335, 521713172 #### [facility] [address], [place] [address]Aehnjwmv mean volume (Bld) [Entitic vol]6.9 fLNormal6.4-10.8 [facility] CenterComment on above:Performed By: #### 3222840, 7868615, 9855899, 6941721, 70892260, 582991883, 0524585, 74697677, 7195728, 881705175 #### [facility] [address], [place] [address]Spnjuqphq (Bld) [#/Vol]312.0 E9/KHrvoeo531.0-500.0[facility] Medical CenterComment on above:Performed By: #### 1420739, 7431246, 4977864, 1278019, 67113936, 762323616, 0564846, 30590681, 6856814, 778170598 #### [facility] [address], [place] [address]FCZ (Bld) [#/Vol]5.0 E12/LNormal4.3-5.9[facility] CenterComment on above:Performed By: #### 6806451, 2806546, 9495666, 1143836, 94235650, 759245623, 3190494, 89389479, 3115142, 890022530 #### [facility] [address], [place] [address]ZCG corrected for nucl RBC Auto (Bld) [#/Vol]5.2 E9/LNormal 4.0-11.0[facility] Medical CenterComment on above:Performed By: #### 4301772, 3241675, 4395741, 4095828, 62275280, 484835897, 7578080, 61260654, 6559509, 400728082 #### [facility] [address], [place] [address]WSSNOXRGYEfoupnd By: SYSTEM SYSTEM on - hydroxyvitamin D3 [Mass/Vol]46.3 ng/uCVzvaaw37.0 - 100.0 ng/mLFTMC Remisol Albumin [Mass/Vol]4.6 g/dLNormal3.3 - 5.0 gm/dLFTMC RemisolAlbumin/Globulin [Mass ratio]1.6 {ratio}Normal1.1 - 2.2FT[facility] RemisolALP [Catalytic activity/Vol]94 [iU]/kZpjbhp31 - 98 Int._Unit/LFTMC RemisolALT No additional P-5'-P [Catalytic activity/Vol]28 [iU]/dNormal6 - 46 Int._Unit/LFTMC RemisolAnion gap [Moles/Vol] 12 mmol/LNormal6 - 16 mEq/LFTMC RemisolAST [Catalytic activity/Vol]30 [iU]/d Normal5 - 43 Int._Unit/LFTMC RemisolBilirubin [Mass/Vol]0.5 mg/dLNormal0.0 - 1.1 mg/dLFTMC RemisolCalcium [Mass/Vol]9.5 mg/dLNormal8.9 - 11.1 mg/dLFT Remisol Chloride [Moles/Vol]101 mmol/RXzrhzc073 - 111 mmol/LFTMC RemisolCholesterol [Mass/Vol]214 mg/iVGmzv018 - 200 mg/dLFT RemisolCholesterol in HDL [Mass/Vol] 66 mg/dLInvalid Interpretation CodeFT RemisolCholesterol in LDL [Mass/Vol]136 mg/dLHigh<=129mg/dLFT RemisolCholesterol in VLDL [Mass/Vol]21 mg/dLNormal7 - 40 mg/dLOKLAH[facility] RemisolCO2 [Moles/Vol]27 mmol/QUcimyp18 - 31 mmol/LFTMC Remisol Creatinine [Mass/Vol]0.7 mg/dLNormal0.5 - 1.3 mg/dLOKLAHOMA ER & [facility]OSP[facility] RemisolFerritin [Mass/Vol]27 ng/dKQebgtn57 - 307 ng/mLOKLAHOMA ER & HOSPITAL – [facility] RemisolGFR/1.73 sq M.predicted among non-blacks MDRD (S/P/Bld) [Vol rate/Area]90 mL/min/1.73 q5Bmlvwh>=59mL/min/1.73 m2[facility] Chem SGlobulin (S) [Mass/Vol]2.9 g/dLNormal1.4 - 4.0 gm/dLFT Remisol Glucose [Mass/Vol]91 mg/dKJjrymc98 - 199 mg/dLFT RemisolIron [Mass/Vol]63 ug/mPCjzydw67 - 153 mcg/dLFT RemisolIron binding capacity [Mass/Vol]423 ug/dL Uwdg473 - 400 mcg/dLFT RemisolPotassium [Moles/Vol]4.3 mmol/LNormal3.5 - 5.3 mmol/LFTMC RemisolProtein [Mass/Vol]7.5 g/dLNormal6.0 - 7.8 gm/dLOKLAHOMA [facility] & [facility] Remisol Sodium [Moles/Vol]136 mmol/VIialof631 - 145 mmol/LFTMC RemisolTransferrin [Mass/Vol]302 mg/nSTbpwcy099 - 370 mg/dLOKLAHOMA [facility] & [facility] RemisolTriglyceride [Mass/Vol]104 mg/dLNormal<=149mg/dLOKLAHOMA [facility] & [facility] RemisolUrea nitrogen [Mass/Vol]13 mg/dLNormal5 - 21 mg/dLOKLAHOMA [facility] & [facility] RemisolUrea nitrogen/Creatinine [Mass ratio]19 mg/aoFlweks92 - 20OK[facility] RemisolCHEMISTRYOrdered By: Candis Scott on 73-44-7911UcY9h (Bld) [Mass fraction]5.7 %Normal<=5.9%[facility] ChemAutoSSCMPon 57-76-9844Gndzq gap [Moles/Vol]12 mmol/LNormal6-16[facility] CenterComment on above:Performed By: #### 2913703, 4161099, 1519208, 7199100, 19388610, 685192609, 1852056, 28727456, 1192248, 294130588 #### [facility] [address], [place] [address]Dmcnfnr [Mass/Vol]9.5 mg/dLNormal8.9-11.1FMagruder HospitalComment on above:Performed By: #### 9718728, 3411309, 8603578, 1197696, 85824680, 540264972, 2835541, 72921223, 4844314, 331665977 #### [facility] [address], [place] [address]Yvqyglyj [Moles/Vol]101 mmol/CPcnlyc686-155QkfknzAshtabula County Medical CenterComment on above:Performed By: #### 3771485, 0993177, 2534256, 0152254, 03048864, 917091707, 1740461, 02016149, 7900361, 409957436 #### [facility] [address], [place] [address]QI3 [Moles/Vol]27 mmol/XLwjmut18-87DkjwbpAshtabula County Medical Center Comment on above:Performed By: #### 6312822, 6189756, 3973960, 5165415, 16619326, 435317780, 6351778, 70686224, 8413785, 781226124 #### [facility] [address], [place] [address]Nsrijii [Mass/Vol]91 mg/rQXxqsls87-113AmzpzfAshtabula County Medical CenterComment on above:Result Comment: If this glucose result represents a fasting glucose, interpretation should refer tothe following reference range: 55-99 mg/dLPerformed By: #### 0051280, 4687469, 1900673, 3386503, 47595384, 973399012, 6211655, 42956785, 8822511, 989055682 #### [facility] [address], [place] [address]Xxohcpvzu [Moles/Vol]4.3 mmol/LNormal3.5-5.3FMagruder HospitalComment on above:Performed By: #### 9097651, 3073205, 4781386, 6771130, 49657231, 579881550, 3369675, 15744348, 0348705, 148055245 #### [facility] [address], [place] [address]Vsylaw [Moles/Vol]136 mmol/NXrwlcr222-354LfmtdvAshtabula County Medical CenterComment on above:Performed By: #### 2208098, 6137559, 1588912, 7526748, 05516430, 220255691, 4878617, 68316650, 4635530, 713162478 #### [facility] [address], [place] [address]Vuxrjev [Mass/Vol]4.6 g/dLNormal3.3-5.0[facility] Medical CenterComment on above:Performed By: #### 0215497, 0918518, 4626082, 2823567, 44820923, 630951946, 9561475, 47956932, 4081546, 059933344 #### [facility] [address] [place] [address]Pdbpfit/Globulin (S) [Mass conc ratio]1.6Jmmslv7.1-2.2FMagruder HospitalComment on above:Performed By: #### 0499155, 4746900, 3656711, 2246469, 53224632, 223819571, 2367728, 38247578, 2004962, 435972538 #### [facility] [address], [place] [address]BNP [Catalytic activity/Vol]94 Int._Unit/PUjtjza86-99WyezmgAshtabula County Medical CenterComment on above:Performed By: #### [id number], 4069555, 5677970, 3814890, 93235875, 041936137, 3246769, 68905164, 5642090, [id number] #### [facility] [address], [place] [address]OBY No additional P-5'-P [Catalytic activity/Vol]28 Int._Unit/L Normal6-46[facility] County Medical CenterComment on above:Performed By: #### [id number], 3265166, 0649941, 2000188, 26765705, 841843651, 2411188, 97837059, 5819661, [id number] #### [facility] [address], [place] [address]KWO [Catalytic activity/Vol]30 Int._Unit/LNormal5-43[facility] County Medical CenterComment on above:Performed By: #### 7072001, 1698818, 2124072, 0847612, 84220577, 981057808, 3240233, 72487855, 0257462, [id number] #### [facility] [address], [place] [address]Wsncvoczu [Mass/Vol]0.5 mg/dLNormal0.0-1.1FMagruder HospitalComment on above:Performed By: #### 5543527, 5119287, 3174385, 8897889, 26550864, 040008046, 0742209, 00120962, 1129973, [id number] #### [facility] [address], [place] [address]Izabczrffj [Mass/Vol]0.7 mg/dLNormal0.5-1.3FMagruder HospitalComment on above:Performed By: #### 8547238, 0436721, 0012540, 5777187, 12723150, 971593464, 4550657, 15743210, 2281669, [id number] #### [facility] [address], [place] [address]Jtavpqok (S) [Mass/Vol]2.9 g/dLNormal1.4-4.0[facility] County Medical CenterComment on above:Performed By: #### 0059768, 1476038, 7759791, 1712219, 18761172, [id number], 2516958, 42672486, 0289063, [id number] #### [facility] [address] [place] [address]Sroxqcr [Mass/Vol]7.5 g/dLNormal6.0-7.8[facility] Medical CenterComment on above:Performed By: #### 4321321, 9096344, 6150431, 7033480, 88697709, 311247444, 3806828, 26770012, 1265789, [id number] #### [facility] [address], [place] [address]Ydwz nitrogen [Mass/Vol]13 mg/dLNormal5-21[facility] Medical CenterComment on above:Performed By: #### 7560037, 7240469, 8281770, 6480596, 56191107, 252743881, 5142652, 74413969, 1339192, 530978913 #### [facility] [address], [place] [address]Fhjt nitrogen/Creatinine [Mass ratio]19 No UrrcoWmjmfs74-60 [facility] CenterComment on above:Performed By: #### 2895225, 5606078, 7416112, 6363149, 95474036, 520229466, 6646579, 46806083, 0727289, 882836970 #### [facility] [address], [place] [address]Zesrzmm for Treatmenton 71-02-2812Rxblmfd for Treatment [id number]#1.00CD:127NormalAshtabula County Medical CenterFerritinon 78-89-7670Ejvwvuqs [Mass/Vol]27 ng/iFXdbhzf42-221UntvgdAshtabula County Medical CenterComment on above:Result Comment: NORMALS MEN <30 YRS 16-132 ng/mL MEN >30 YRS 8-338 ng/mL WOMEN (PREMEN) 6-104 ng/mL WOMEN (POSTMEN) 12-210 ng/mLPerformed By: #### 2597097, 6332999, 2538859, 6199934, 06880532, 918892059, 6490011, 48177777, 5409363, 439636030 #### [facility] [address], [place] [address]FLETYCTAPUGqljzqq By: SYSTEM SYSTEM on 08-63-7522Naheucnym/100 WBC (Bld)1.1 %Normal0.0 - 2.0 %[facility] HemeAutoSSBasophils/Leukocytes Auto (Bld) [Pure # fraction]0.1 E9/LNormal0.0 - 0.2 E9/LFTMC HemeAutoSSEosinophils/100 WBC (Bld)3.4 %Normal0.0 - 8.0 %[facility] HemeAutoSSEosinophils/Leukocytes Auto (Bld) [Pure # fraction]0.2 E9/LNormal0.0 - 0.5 E9/LFTMC HemeAutoSSLymphocytes/100 WBC (Bld)31.1 %Pjhrtc54.0 - 50.0 %[facility] HemeAutoSSLymphocytes/Leukocytes Auto (Bld) [Pure # fraction]1.6 E9/LNormal1.0 - 4.0 E9/LFTMC HemeAutoSSMonocytes/100 WBC (Bld)11.9 %Normal4.0 - 14.0 %[facility] HemeAutoSSMonocytes/Leukocytes Auto (Bld) [Pure # fraction]0.6 E9/LNormal0.2 - 1.0 E9/LFTMC HemeAutoSSNeutrophils/100 WBC (Bld)52.5 %Grpiqc76.0 - 75.0 %[facility] HemeAutoSSNeutrophils/Leukocytes Auto (Bld) [Pure # fraction]2.7 E9/LNormal2.0 - 7.5 E9/LFTMC HemeAutoSSHEMATOLOGYOrdered By: Sumi Kelley on 59-61-5364Yhzwgiffutn distribution width (RBC) [Ratio] 15.5 %High10.9 - 14.2 %[facility] HemeAutoSSHematocrit (Bld) [Volume fraction]40.6 % Dpuowj19.0 - 46.0 %[facility] HemeAutoSSHemoglobin (Bld) [Mass/Vol]13.6 g/fUToljps57.0 - 16.0 gm/dLFTMC HemeAutoSSMCH (RBC) [Entitic mass]26.9 pgLow27.0 - 34.0 pgFTMC HemeAutoSSMCHC (RBC) [Mass/Vol]33.4 g/wFThmsys46.4 - 36.0 gm/dLFTMC HemeAutoSS MCV (RBC) [Entitic vol]80.6 sTThdryp48.0 - 100.0 fLFTMC HemeAutoSSPlatelet mean volume (Bld) [Entitic vol]6.9 fLNormal6.4 - 10.8 fLFTMC HemeAutoSSPlatelets (Bld) [#/Vol]312.0 E9/ALwdvmq486.0 - 500.0 E9/LFTMC HemeAutoSSRBC (Bld) [#/Vol] 5.0 E12/LNormal4.3 - 5.9 E12/LFTMC HemeAutoSSWBC corrected for nucl RBC Auto (Bld) [#/Vol]5.2 E9/LNormal4.0 - 11.0 E9/LFTMC XywrIslrLGEalF7ros 10-22-2022 HbA1c (Bld) [Mass fraction]5.7 %Normal<=5.9[facility] County Medical CenterComment on above:Performed By: #### 7849550, 9106377, 2032811, 3596406, 80047517, 705634314, 5271503, 89126971, 5815255, 371918272 #### [facility] [address], [place] [address]Naxnqm 15-43-9456Fsek [Mass/Vol]63 microgram/uKTalhcy59-269 [facility] Medical CenterComment on above:Performed By: #### 4598370, 9081398, 8666255, 3853085, 22175846, 402452792, 7161905, 13137612, 5333629, 465681930 #### [facility] [address], [place] [address]Ifuto Panelon 21-42-1891Jmqxjsfcdpe [Mass/Vol]214 mg/dLHigh 120-200[facility] Medical CenterComment on above:Performed By: #### 7530608, 0176748, 4617233, 3028824, 52370181, 451870120, 7503528, 70789735, 9791782, 427016041 #### [facility] [address], [place] [address]Iowiuwxjliu in HDL [Mass/Vol]66 mg/dLInvalid Interpretation CodeAshtabula County Medical CenterComment on above:Result Comment: HDL > or equal to 60 mg/dL: Low cardiovascular risk HDL < 40 mg/dL : High cardiovascular riskPerformed By: #### 1466980, 5350999, 4983018, 5815389, 37159069, 743943943, 4724312, 06517886, 3437139, 552664254 #### [facility] [address], [place] [address]Sikeqbrnpag in LDL [Mass/Vol]136 mg/dLHigh<=129[facility] Medical CenterComment on above:Performed By: #### 5215268, 4996683, 9908645, 3763232, 37725645, 775452347, 2196215, 09065476, 0454163, 665173977 #### [facility] [address], [place] [address]Xwpntwrqvsq in VLDL [Mass/Vol]21 mg/dLNormal7-40[facility] Medical CenterComment on above:Performed By: #### 9458745, 4539487, 4374189, 1743576, 57904281, 308505941, 8952517, 77560039, 8760445, 027554260 #### [facility] [address], [place] [address]Njnqnyxqhhph [Mass/Vol]104 mg/dLNormal<=149[facility] Medical CenterComment on above:Performed By: #### 6308827, 8572793, 3472616, 9420949, 46952296, 654878510, 1671254, 48714758, 0922108, 636561379 #### [facility] [address], [place] [address]Ktbgnpvjf Orderon 52-90-3809Pdwbekirm Order [id number]#1.00CD:127NormalAshtabula County Medical CenterTIBC Calculatedon 96-78-2324Yuqg binding capacity [Mass/Vol]423 microgram/sLNrfv923-906YinwshAshtabula County Medical CenterComment on above:Performed By: #### 3814872, 6818672, 1551671, 8948386, 00774415, 872146184, 2096841, 45275678, 0014269, 367225563 #### [facility] [address], [place] [address]Preoulexjxo [Mass/Vol]302 mg/nOJqnfxf346-543GvruxlAshtabula County Medical CenterComment on above:Performed By: #### 4114333, 7965592, 3800484, 4683460, 16961859, 806150366, 9612512, 54535435, 1580297, 173331600 #### [facility] [address], [place] [address]Lvdpwej D 25 Hydroxyon 97-98-840439096559-detecamcljktyt D3 [Mass/Vol]46.3 ng/uVOnzqdd68.0-100.0As[facility] County Medical CenterComment on above: Result Comment: Vitamin D deficiency has been defined as a level of serum 25-OH vitamin D less than 20 ng/mL (1,2) by the [place] of Medicine and an Endocrine Society practice guideline. The Endocrine Society further defined vitamin D insufficiency as a level between 21 and 29 ng/mL (2). 1. IOM ([place] of Medicine). 2010. Dietary reference intakes for calcium and D. [place]: The National Academies Press. 2. Sarah MF, Ligia LOUIS, Skylar BALDERAS, et al. Evaluation, treatment, and prevention of vitamin D deficiency: an Endocrine Society clinical practice guideline. JCEM. 2010; 96 (7):1911-30.Performed By: #### 7339394, 2427812, 0364970, 6378534, 89367123, 848452471, 9184421, 53661775, 3330512, 078844192 #### [facility] [address], [place] [address]cGMGnl 22-12-1396HAH/1.73 sq M.predicted among non-blacks MDRD (S/P/Bld) [Vol rate/Area]90 mL/min/1.73 l2Qygzpy>=59[facility] Comment on above:Order Comment: Order added by Discern Expert.Result Comment: Chronic kidney disease could be indicated at eGFR's of less than 60 mL/min/1.73m2. Kidney failure is indicated at less than 15 mL/min/1.73m2. Performed By: #### 4934873, 1488941, 2131671, 7364406, 54101189, 612411275, 7207413, 92432206, 7767605, 347669955 #### [facility] [address], [place] [address]Tspuup Visit (Cardiology)on 30-90-0209Cigwgp-up visit Diagnoses/Problems Assessed Supraventricular tachycardia (427.89) (I47.1) Essential hypertension (401.9) (I10) Mixed hyperlipidemia (272.2) (E78.2) Class 1 obesity with body mass index (BMI) of 34.0 to 34.9 in adult (278.00,V85.34) (E66.9,Z68.34) Never smoker Rheumatoid arthritis (714.0) (M06.9) Orders Class 1 obesity with body mass index (BMI) of 34.0 to 34.9 in adult Healthy Weight Tips; Status:Complete - Retrospective Authorization; Done: [id number] Some eating tips that can help you lose weight.; Status:Complete - Retrospective Authorization; Done: [id number] Mixed hyperlipidemia Renew: Simvastatin 20 MG Oral [...] her PCP and also with rheumatology in [place] and has been on hydroxychloroquine and stable. 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 Her weight is 11 pounds above last year's visit. This is due to inactivity is. The patient has stress relatedto her 's illness Noah who is a patient of [facility] with multiple medical problems. She was noted [...] arthritis on hydroxychloroquine stable Deb Zamora MD, [facility] Surgical History Problems History of Cholecystectomy History [...] negative for complaint. Vitals Vital Signs Recorded: [id number] 08:33AM Heart Rate78, L Radial Osnhqups255, LUE, Sitting Pcscbqdzd99, LUE, Sitting Height5 ft 1 in Vuuava954 lb BMI Ukiqzkhuxk19.2 kg/m2 BSA Calculated1.81 Tobacco Useb) No PHQ-2 #1. Over the last 2 weeks have you felt down, depressed or hopeless? (If yes, answer PHQ-9 below)No PHQ-2 #2. Over the last 2 weeks have you felt little interest or pleasu (more content not included)...NormalUH TouchworksTobacco Screening.on 76-93-9124Wiytm depression screening assessmentNo-[facility] [address] DO Work Phone: Fall risk assessmenta) No falls within the last year [facility] 600 DO Work Phone: Tobacco use status CPHSb) NoM-[facility] 600 DO Work Phone: Albumin [Mass/volume] in Serum or PlasmaOrdered By: Mayco Velasquez on 93-62-9128Zuouwxc [Mass/Vol]4.4 g/dL3.2-5.5FAshtabula County Medical CenterAutomated erythrocytes count in urine sediment (number/area) Ordered By: Mayco Velasquez on 01-16-5492XIR Auto (Urine sed) [#/Area]0-1 [HPF]0-4 [facility] FoundationAutomated leukocytes count in urine sediment (number/area)Ordered By: Mayco Velasquez on 04-70-8496GIF Auto (Urine sed) [#/Area] 0-1 [HPF]0-4FAshtabula County Medical CenterBasophils Auto (Bld) [#/Vol]Ordered By: Mayco Velasquez on 62-68-5123Jwcosrxlc (Bld) [#/Vol]0.0 10*3/uL0.0-0.2 [facility] FoundationBasophils/100 WBC Auto (Bld)Ordered By: Mayco Velasquez on 76-15-2367Sdwhtqsbi/100 WBC (Bld)0.7 %.[facility] FoundationBilirubin Test strip Ql (U)Ordered By: Mayco Velasquez on 27-45-8876Ltlonextt Ql (U)NegativeNegativeCleveland Clinic FoundationCT biopsyOrdered By: Mayco Velasquez on 35-30-2148Lxaqwihrznq [Mass/Vol]300 mg/yK213-909UebslfmnqCleveland Clinic FoundationCholesterol [Mass/volume] in Serum or PlasmaOrdered By: Mayco Velasquez on 92-00-8600Axpctljmtav [Mass/Vol]121 mg/iN158-002SqjjpbfdeCleveland Clinic FoundationComment on above:Chol less than 200 mg/dl low riskChol 201-239 mg/dl borderline riskChol 240 mg/dl and greater high riskCholesterol in LDL Calc [Mass/Vol]Ordered By: Mayco Velasquez on 42-51-0316Zxdawqryjoz in LDL [Mass/Vol]49 mg/dL0-100[facility] FoundationComment on above:LDL ATP III CLASSIFICATIONLDL less than 100 mg/dL OptimalLDL 100-129 mg/dL Near or above oqpknkoEAH012-079 mg/dL Borderline highLDL 160-189 mg/dL HighLDL greater than 189 mg/dL Very highCholesterol in VLDL Calc [Mass/Vol]Ordered By: Mayco Velasquez on 44-46-7055Orvpuaoiyfh in VLDL [Mass/Vol]21 mg/dLCleveland Clinic FoundationColor Auto (U)Ordered By: Mayco Velasquez on 10-30-2472Trvnh (U) YellowYellowCleveland Clinic FoundationCreatinine and Glomerular filtration rate.predicted panel (S/P/Bld)Ordered By: Mayco Velasquez on 04-30-2022 Creatinine [Mass/Vol]0.78 mg/dL0.44-1.03[facility] Eosinophils Auto (Bld) [#/Vol]Ordered By: Mayco Velasquez on 42-97-2183Omlueokvfbo (Bld) [#/Vol]0.2 10*3/uL0.0-0.45[facility] FoundationEosinophils/100 WBC Auto (Bld)Ordered By: Mayco Velasquez on 36-48-5554Mmugponeawa/100 WBC (Bld) 4.9 %.[facility] FoundationErythrocyte distribution width Auto (RBC) [Ratio]Ordered By: Mayco Velasquez on 33-48-6770Jzfuraugilu distribution width (RBC) [Ratio]13.8 %11.9-15.3FAshtabula County Medical CenterEstimated glomerular filtration rate (GFR) non- AmericanOrdered By: Mayco Velasquez on 47-32-2447FJD/1.73 sq M.predicted among non-blacks MDRD (S/P/Bld) [Vol rate/Area]> 60 mL/MinCleveland Clinic FoundationFerritin [Mass/volume] in Serum or PlasmaOrdered By: Mayco Velasquez on 43-51-3938Nvuscblt [Mass/Vol]21.8 ng/cJ34-857.8[facility] FoundationGlobulin Calc (S) [Mass/Vol] Ordered By: Mayco Velasquez on 21-65-9755Ytzrtayp (S) [Mass/Vol]2.1 g/dLCleveland Clinic FoundationHematocrit Auto (Bld) [Volume fraction]Ordered By: Mayco Velasquez on 08-25-5700Zvpbsfugww (Bld) [Volume fraction]40.1 %34.0-46.4FAshtabula County Medical CenterHemoglobin [Mass/volume] in BloodOrdered By: Mayco Velasquez on 27-06-2009Grvtxaemtd (Bld) [Mass/Vol]13.1 g/dL11.8-15.4FAshtabula County Medical CenterIron [Mass/volume] in Serum or PlasmaOrdered By: Mayco Velasquez on 24-42-5037Hama [Mass/Vol]65 ug/iR11-128QrrtskjzrCleveland Clinic FoundationIron binding capacity [Mass/volume] in Serum or PlasmaOrdered By: Mayco Velasquez on 60-00-3748Egnm binding capacity [Mass/Vol]420 ug/gF051-861GlfxduzdzCleveland Clinic FoundationIron saturation [Mass Fraction] in Serum or PlasmaOrdered By: Mayco Velasquez on 75-41-8377Lnjw saturation [Mass fraction]15.5 %20-50[facility] FoundationKetones Auto test strip (U) [Mass/Vol]Ordered By: Mayco Velasquez on 28-38-0785Nneonhj (U) [Mass/Vol]NegativeNegativeCleveland Clinic FoundationLaboratory - UrinalysisOrdered By: Mayco Velasquez on 04-30-2022 Hyaline casts LM Ql (Urine sed)0-8 [LPF]0-8[facility] Leukocytes [#/volume] corrected for nucleated erythrocytes in Blood by Automated counOrdered By: Mayco Velasquez on 38-88-5422SKJ corrected for nucl RBC Auto (Bld) [#/Vol]4.8 10*3/uL3.8-11.6FAshtabula County Medical CenterLymphocytes Auto (Bld) [#/Vol]Ordered By: Mayco Velasquez on 37-20-6525Ysgebqztqyt (Bld) [#/Vol]1.8 10*3/uL1.00-4.8[facility] FoundationLymphocytes/100 WBC Auto (Bld) Ordered By: Mayco Velasquez on 75-69-4557Xczssqaoopf/100 WBC (Bld)37.7 %.[facility] FoundationMCH Auto (RBC) [Entitic mass]Ordered By: Mayco Velasquez on 76-56-9507OTK (RBC) [Entitic mass]26.6 pg24.7-34.3FAshtabula County Medical CenterMCHC Auto (RBC) [Mass/Vol]Ordered By: Mayco Velasquez on 91-34-2099MQBV (RBC) [Mass/Vol]32.6 g/dL32.0-35.0[facility] FoundationMCV Auto (RBC) [Entitic vol]Ordered By: Mayco Velasquez on 56-07-6648OHE (RBC) [Entitic vol]81.5 jI19-663ZhmulyzvqCleveland Clinic FoundationMonocytes Auto (Bld) [#/Vol]Ordered By: Mayco Velasquez on 54-85-0758Zxegoyrwi (Bld) [#/Vol]0.7 10*3/uL0.0-0.8[facility] FoundationMonocytes/100 WBC Auto (Bld)Ordered By: Mayco Velasquez on 34-93-0147Phbhyzhfb/100 WBC (Bld)15.1 %.[facility] Neutrophils Auto (Bld) [#/Vol]Ordered By: Mayco Velasquez on 29-58-7833Fhkxjwbaogg (Bld) [#/Vol]2.0 10*3/uL1.8-7.7FAshtabula County Medical CenterNeutrophils/100 WBC Auto (Bld)Ordered By: Mayco Velasquez on 97-89-7891Surddvnmvje/100 WBC (Bld) 41.6 %.[facility] FoundationNitrite Test strip Ql (U)Ordered By: Mayco Velasquez on 53-02-8261Tnxjnap Ql (U)NegativeNegativeCleveland Clinic FoundationNo Panel InformationOrdered By: Mayco Velasquez on 39-20-869711- Hydroxy Vitamin D Total34.4 ng/mO27-973MjzewcdctCleveland Clinic FoundationComment on above:VITAMIN D STATUS 25(OH)VITAMIN D RANGE (ng/mL) Deficient <20 Insufficient 20 to <35Yqaahjakoc67 to 100Reference: Sarah MF,Ligia NC, Skylar BALDERAS, et al. Evaluation,treatment, and prevention of vitamin D deficiency; an Endocrine Society clinical practice guideline. JCEM. 2010; 96 (7):1911-30.Estimated GFR ()> 60 mL/MinCleveland Clinic FoundationComment on above:GFR estimated reference range: According to KDOQI guidelines, <60 ml/min/1.73m2 is sufficient todiagnose a patient with chronic kidney disease.Pharmacy Creatinine Clearance (ChemN/AFAshtabula County Medical CenterNucleated erythrocytes [Presence] in Blood by Automated countOrdered By: Mayco Velasquez on 47-73-4762Ifhgicvnn RBC Auto Ql (Bld)0.1 /100{WBC}0-0.5FAshtabula County Medical CenterPlatelet mean volume Auto (Bld) [Entitic vol]Ordered By: Mayco Velasquez on 86-70-8472Gzsiazaw mean volume (Bld) [Entitic vol]7.6 fL6.3-10.7 [facility] FoundationPlatelets Auto (Bld) [#/Vol]Ordered By: Mayco Velasquez on 65-63-2672Eebytszbv (Bld) [#/Vol]284 10*3/dR302-491TcrcdrtgyCleveland Clinic FoundationProtein Auto test strip (U) [Mass/Vol]Ordered By: Mayco Velasquez on 08-81-2655Ahqjssn (U) [Mass/Vol]NegativeNegativeCleveland Clinic FoundationProtein [Mass/volume] in Serum or PlasmaOrdered By: Mayco Velasquez on 51-69-5875Hxzrxxu [Mass/Vol]6.5 g/dL6.1-7.9[facility] FoundationRBC Auto (Bld) [#/Vol]Ordered By: Mayco Velasquez on 27-91-1467MAW (Bld) [#/Vol]4.92 10*6/uL3.60-5.00[facility] Systemerum or plasma alanine aminotransferase measurement without P-5'-P (enzymatic activiOrdered By: Mayco Velasquez on 09-98-7757IQP No additional P-5'-P [Catalytic activity/Vol]20 U/L10-60 [facility] Systemerum or plasma albumin/globulin mass ratio Ordered By: Mayco Velasquez on 11-73-7257Wepqbfx/Globulin [Mass ratio]2.1 {ratio} [facility] Systemerum or plasma alkaline phosphatase measurement (enzymatic activity/volume)Ordered By: Mayco Velasquez on 76-98-1556VFQ [Catalytic activity/Vol]79 U/K98-45QlotuocyaUniversity Hospitals Health Systemerum or plasma anion gap determinationOrdered By: Mayco Velasquez on 18-49-4113Cftnh gap [Moles/Vol]8.6 mmol/L6.0-15.0[facility] Systemerum or plasma aspartate aminotransferase measurement (enzymatic activity/volume)Ordered By: Mayco Velasquez on 64-42-5486YRC [Catalytic activity/Vol]23 U/D32-40PiwborzbqUniversity Hospitals Health Systemerum or plasma calcium measurement (mass/volume)Ordered By: Mayco Velasquez on 01-46-8896Kfjtsoo [Mass/Vol]9.4 mg/dL8.2-10.2FAshtabula County Medical Centererum or plasma chloride measurement (moles/volume) Ordered By: Mayco Velasquez on 18-45-4748Espalvoz [Moles/Vol]100 mmol/L95-114 [facility] Systemerum or plasma glucose measurement (mass/volume)Ordered By: Mayco Velasquez on 36-08-8805Snvnygc [Mass/Vol]85 mg/dL 70-100[facility] FoundationComment on above:ADA recommended reference rangeRandom Glucose Reference Range is dependent on time and content of last meal. Glucose of more than 200 mg/dL in a nonstressed, ambulatory subject supports the diagnosisof Diabetes Mellitus.Serum or plasma high density lipoprotein (HDL) cholesterol measurementOrdered By: Mayco Velasquez on 04-30-2022 Cholesterol in HDL [Mass/Vol]51 mg/yP14-37LsbwcuyldCleveland Clinic Foundation Comment on above:HDL CHOL ATP-III CLASSIFICATION Cardiovascular RiskHDL > or equal to 60 mg/dL LOWHDL < 40 mg/dL HIGHSerum or plasma potassium measurement (moles/volume)Ordered By: Mayco Velasquez on 09-52-7333Ejuysfosx [Moles/Vol]4.0 mmol/L3.5-5.1FAshtabula County Medical Centererum or plasma sodium measurement (moles/volume)Ordered By: Mayco Velasquez on 34-75-5938Nltert [Moles/Vol]133 mmol/L098-908OdxtsuyxfUniversity Hospitals Health Systemerum or plasma total bilirubin measurement (mass/volume)Ordered By: Mayco Velasquez on 08-62-0444Kwfyfibsi [Mass/Vol]0.4 mg/dL0.3-1.2FAshtabula County Medical Centererum or plasma total carbon dioxide measurement (moles/volume)Ordered By: Mayco Velasquez on 04-30-2022 CO2 [Moles/Vol]28.4 mmol/L22.0-30.0[facility] Hospitals Health Systemerum or plasma total cholesterol/high density lipoprotein (HDL) cholesterol mass rat Ordered By: Mayco Velasquez on 14-42-8960Vazstkibgxn.total/Cholesterol in HDL [Mass ratio]2.4 {ratio}<5.0[facility] Health Systemerum or plasma urea nitrogen measurement (mass/volume)Ordered By: Mayco Velasquez on 69-20-3021Tnhx nitrogen [Mass/Vol]9 mg/dL9-23[facility] Health Systempecific gravity Auto test strip (U) [Rel density]Ordered By: Mayco Velasquez on 70-23-9402Jimkuatj gravity (U) [Rel density]1.0131.001-1.030[facility] Squamous epithelial cells detection in urine sediment by light microscopyOrdered By: Mayco Velasquez on 96-96-6619Enajpjesvq cells.squamous LM Ql (Urine sed)0-1 [HPF]0-2FAshtabula County Medical CenterTS DL <= 0.005 mIU/L QnOrdered By: Mayco Velasquez on 00-21-1007PBW Qn2.43 m[IU]/L0.45-5.33[facility] FoundationTriglyceride [Mass/volume] in Serum or PlasmaOrdered By: Mayco Velasquez on 83-86-3668Zkbboxpmnipo [Mass/Vol]106 mg/rM24-119AharlifsdCleveland Clinic FoundationComment on above:TRIG ATP III CLASSIFICATIONTRIG less than 150 mg/dL NormalTRIG 150-199 mg/dL Borderline highTRIG 200-500 mg/dL High TRIG greater than 500 mg/dL Very highStandard traceable to the Center for Disease Conrtrol and Prevention (CDC) test method.Urine bacteria detection by automated method Ordered By: Mayco Velasquez on 52-60-4978Oyesgcbg Auto Ql (U)None seenNone Seen [facility] FoundationUrine clarity by refractometry automatedOrdered By: Mayco Velasquez on 57-86-2568Elfudyc Refractometry automated (U)ClearClear [facility] FoundationUrine glucose measurement by automated test strip (mass/volume)Ordered By: Mayco Velasquez on 22-34-0681Xqgnydv Auto test strip (U) [Mass/Vol]Normal mg/dLNoBethesda North HospitalUrine hemoglobin detection by automated test stripOrdered By: Mayco Velasquez on 47-67-1497Jvuaebrxem Auto test strip Ql (U)NegativeNegativeCleveland Clinic FoundationUrine leukocyte esterase detection by automated test stripOrdered By: Mayco Velasquez on 75-59-4992Yxwabhcmb esterase Auto test strip Ql (U)1+ NegativeCleveland Clinic FoundationUrobilinogen Auto test strip (U) [Mass/Vol]Ordered By: Mayco Velasquez on 79-98-7029Iaohggpqpsgc (U) [Mass/Vol] Normal mg/dLNoBethesda North HospitalWBC Auto (Bld) [#/Vol]Ordered By: Mayco Velasquez on 34-57-1347EYY (Bld) [#/Vol]4.8 10*3/uL3.8-11.6FAshtabula County Medical CenterpH Auto test strip (U)Ordered By: Mayco Velasquez on 93-80-8041mW (U)6.5 [pH]5.0-9.0[facility] FoundationCoding Summary. on 46-49-2719Lryzpf Summary. CD:[id number]:[id number]+PGhlYWQ+WQ3RARXlC29maOTglO7NB2xDKN3OIMHUVEXREW7EWU9mm JU0HObbB1YyirFs [file] YXBz (more content not included)...NormalAshtabula County Medical CenterAuto Diffon 80-31-8511Emjeyeemy/100 WBC (Bld)1.7 %Normal0.0-2.0[facility] Comment on above:Order Comment: Order Added by Discern Expert.Performed By: #### 2386002, 7167290, 4286439, 1155979, 07926807, 800500343, 0878233, 92289414, 5749566, [id number] #### [facility] [address], [place] [address]Pcykdkyqa/Leukocytes Auto (Bld) [Pure # fraction]0.1 E9/LNormal 0.0-0.2FMagruder HospitalComment on above:Order Comment: Order Added by Discern Expert.Performed By: #### 9096223, 0141243, 3730090, 2795972, 38423950, 191890603, 6565377, 05589636, 1935363, [id number] #### [facility] [address], [place] [address]Hpwiugdpwrt/100 WBC (Bld)3.4 %Normal0.0-8.0Ashtabula County Medical CenterComment on above:Order Comment: Order Added by Discern Expert.Performed By: #### 1054755, 3300932, 8684013, 7539466, 13629005, 853160793, 3196805, 93306730, 0417451, [id number] #### [facility] [address], [place] [address]Bemffemaste/Leukocytes Auto (Bld) [Pure # fraction]0.2 E9/L Normal0.0-0.5FMagruder HospitalComment on above:Order Comment: Order Added by Discern Expert.Performed By: #### [id number], [id number], [id number], [id number], [id number], [id number], [id number], [id number], [id number], [id number] #### [facility] [address], [place] [address]Qaazjmbxudv/100 WBC (Bld)34.6 %Nymxhw56.0-50.0[facility] CenterComment on above:Order Comment: Order Added by Discern Expert. Performed By: #### [id number], [id number], [id number], [id number], [id number], [id number], [id number], [id number], [id number], [id number] #### [facility] [address] [place] [address]Qpneyeybbct/Leukocytes Auto (Bld) [Pure # fraction]1.8 E9/L Normal1.0-4.0[facility] CenterComment on above:Order Comment: Order Added by Discern Expert.Performed By: #### [id number], [id number], [id number], [id number], [id number], [id number], 4461083, 60511388, 1781349, 473935876 #### [facility] [address] [place] [address] 68757Utjjoffnz/100 WBC (Bld)13.1 %Normal4.0-14.0[facility] Medical CenterComment on above:Order Comment: Order Added by Discern Expert.Performed By: #### 1687545, 0881346, 1164186, 8702884, 13070806, 985483342, 9915638, 87920203, 3834351, 293150117 #### [facility] [address] [place] [address] 13025Rdzjdazqv/Leukocytes Auto (Bld) [Pure # fraction]0.7 E9/LNormal 0.2-1.0[facility] CenterComment on above:Order Comment: Order Added by Discern Expert.Performed By: #### 5700950, 6837083, 4999103, 4039375, 01969753, 392384858, 2647622, 52015368, 1918206, 969989325 #### [facility] [address], [place] [address]Saqfofslqus/100 WBC (Bld)47.2 %Tyzpxm53.0-75.0[facility] Medical CenterComment on above:Order Comment: Order Added by Discern Expert. Performed By: #### 9135208, 1571520, 9646616, 9689835, 86242197, 776098312, 9014248, 02307710, 7303721, 448160099 #### [facility] [address], [place] [address]Ofjlsjyprva/Leukocytes Auto (Bld) [Pure # fraction]2.5 E9/L Normal2.0-7.5FMagruder HospitalComment on above:Order Comment: Order Added by Discern Expert.Performed By: #### 0957364, 2993552, 4555373, 5929070, 14348157, 830764001, 9507895, 40929808, 7112405, 601501795 #### [facility] [address], [place] [address]KFE w/ Auto Diffon 10-21-0884Zqwznyfocum distribution width (RBC) [Ratio]15.2 %High10.9-14.2FMagruder HospitalComment on above: Performed By: #### 4804813, 9415919, 6709970, 6300660, 12203458, 068212541, 7313774, 90747128, 3868984, 813635137 #### [facility] [address], [place] [address]Uohsjuhglw (Bld) [Volume fraction]40.4 %Zmmsvp83.0-46.0[facility] Medical CenterComment on above:Performed By: #### 2420085, 7559156, 8317634, 9355464, 88413338, 948941263, 6630541, 03919184, 2477434, 100443279 #### [facility] [address], [place] [address]Afysygujwb (Bld) [Mass/Vol]13.8 g/yPOpjcsw84.0-16.0[facility] Medical CenterComment on above:Performed By: #### 6393212, 1115929, 8039456, 7220584, 39774777, 806432343, 9240210, 95908305, 7760928, 087847318 #### [facility] [address], [place] [address]UCB (RBC) [Entitic mass]26.9 pgLow27.0-34.0[facility] Medical CenterComment on above:Performed By: #### 0019770, 1124920, 7966731, 6268560, 45296387, 757716020, 1953505, 30782657, 0652006, 728231703 #### [facility] [address] [place] [address] 39[address]UOMY (RBC) [Mass/Vol]34.2 g/uHVtuztg13.4-36.0[facility] Medical CenterComment on above:Performed By: #### 4786968, 6723328, 9946480, 2896721, 50835962, 026051079, 4563211, 84227859, 4939075, 722011634 #### [facility] [address] [place] [address]BWT (RBC) [Entitic vol]78.8 fLLow80.0-100.0[facility] Medical CenterComment on above:Performed By: #### 8808216, 8039075, 9754508, 2357667, 30866965, 408125544, 7901590, 89530278, 9449583, 512210763 #### [facility] [address], [place] [address]Cxiknfdi mean volume (Bld) [Entitic vol]7.2 fLNormal6.4-10.8 [facility] Medical CenterComment on above:Performed By: #### 8447677, 7902283, 6389242, 1099728, 51817291, 292657107, 7802181, 02668598, 2070178, 042076293 #### [facility] [address], [place] [address]Gldcyyrdm (Bld) [#/Vol]355.0 E9/LNbcjcg590.0-500.0[facility] Medical CenterComment on above:Performed By: #### 8171606, 3999640, 8720394, 5384276, 30913746, 474419405, 6289137, 88146257, 9922453, 486913737 #### [facility] [address], [place] [address]SEL (Bld) [#/Vol]5.1 E12/LNormal4.3-5.9[facility] Medical CenterComment on above:Performed By: #### 8927704, 9283036, 6835846, 5879287, 85678062, 981494345, 0205267, 72490359, 7181410, 547348996 #### [facility] [address], [place] [address]RNJ corrected for nucl RBC Auto (Bld) [#/Vol]5.3 E9/LNormal 4.0-11.0[facility] Medical CenterComment on above:Performed By: #### 0891544, 9594368, 2460236, 6443160, 76358719, 976145405, 4210220, 91078992, 1523122, 010598412 #### [facility] [address], [place] [address]UVYWUKNYPRanqbdw By: SYSTEM SYSTEM on 63-89-6435Jkgbtteg [Mass/Vol]23 ng/dNHqwici68 - 307 ng/mLFTMC RemisolIron [Mass/Vol]98 ug/dLNormal 35 - 153 mcg/dLFTMC RemisolIron binding capacity [Mass/Vol]480 ug/zAYkbv132 - 400 mcg/dLFTMC RemisolTransferrin [Mass/Vol]343 mg/vXNaqwni181 - 370 mg/dLFTMC RemisolConsent for Treatmenton 23-92-8766Pxioohd for Treatment [id number]#1.00CD:127NormalAshtabula County Medical CenterFerritinon 75-95-8349Pulpbmri [Mass/Vol]23 ng/gNQupcjy04-669KdwwhlAshtabula County Medical CenterComment on above:Result Comment: NORMALS MEN <30 YRS 16-132 ng/mL MEN >30 YRS 8-338 ng/mL WOMEN (PREMEN) 6-104 ng/mL WOMEN (POSTMEN) 12-210 ng/mLPerformed By: #### 7644481, 0238357, 0843866, 4510891, 60051186, 609893204, 2390086, 85062733, 1797841, 564867657 #### [facility] [address] [place] [address] 08647HIJQIAXSKIHaujqgf By: SYSTEM SYSTEM on 40-12-5929Ktqaburyw/100 WBC (Bld)1.7 %Normal0.0 - 2.0 %[facility] HemeAutoSSBasophils/Leukocytes Auto (Bld) [Pure # fraction]0.1 E9/LNormal0.0 - 0.2 E9/LFTMC HemeAutoSSEosinophils/100 WBC (Bld)3.4 %Normal0.0 - 8.0 %[facility] HemeAutoSSEosinophils/Leukocytes Auto (Bld) [Pure # fraction]0.2 E9/LNormal0.0 - 0.5 E9/LFTMC HemeAutoSSLymphocytes/100 WBC (Bld)34.6 %Nhfvhe67.0 - 50.0 %[facility] HemeAutoSSLymphocytes/Leukocytes Auto (Bld) [Pure # fraction]1.8 E9/LNormal1.0 - 4.0 E9/LFTMC HemeAutoSSMonocytes/100 WBC (Bld)13.1 %Normal4.0 - 14.0 %[facility] HemeAutoSSMonocytes/Leukocytes Auto (Bld) [Pure # fraction]0.7 E9/LNormal0.2 - 1.0 E9/LFTMC HemeAutoSSNeutrophils/100 WBC (Bld)47.2 %Ozknyc30.0 - 75.0 %[facility] HemeAutoSSNeutrophils/Leukocytes Auto (Bld) [Pure # fraction]2.5 E9/LNormal2.0 - 7.5 E9/LFTMC HemeAutoSSHEMATOLOGYOrdered By: Latoya Damon on 80-28-8037Exgbffxdhxw distribution width (RBC) [Ratio]15.2 % High10.9 - 14.2 %FT HemeAutoSSHematocrit (Bld) [Volume fraction]40.4 %Normal 34.0 - 46.0 %[facility] HemeAutoSSHemoglobin (Bld) [Mass/Vol]13.8 g/zVWdidul75.0 - 16.0 gm/dLFTMC HemeAutoSSMCH (RBC) [Entitic mass]26.9 pgLow27.0 - 34.0 pgFTMC HemeAutoSSMCHC (RBC) [Mass/Vol]34.2 g/sTLsajga76.4 - 36.0 gm/dLFTMC HemeAutoSS MCV (RBC) [Entitic vol]78.8 fLLow80.0 - 100.0 fLFT HemeAutoSSPlatelet mean volume (Bld) [Entitic vol]7.2 fLNormal6.4 - 10.8 fLFT HemeAutoSSPlatelets (Bld) [#/Vol]355.0 E9/ETezekj763.0 - 500.0 E9/LFC HemeAutoSSRBC (Bld) [#/Vol] 5.1 E12/LNormal4.3 - 5.9 E12/LFC HemeAutoSSWBC corrected for nucl RBC Auto (Bld) [#/Vol]5.3 E9/LNormal4.0 - 11.0 E9/LFINTEGRIS [facility] [place] HemeAutoSSIronon 91-87-8034Ezpf [Mass/Vol]98 microgram/sRNtdiaz63-745Eielpp [facility]inai Hospital Of BaltimoreComment on above:Performed By: #### 7685317, 2568633, 6754677, 3167733, 69588921, 835677386, 9237953, 21341382, 4979330, 511477263 #### [facility] [address] [place] [address]Hyuvsecgs Orderon 48-04-3190Pdjumqffu Order [id number]#1.00CD:127NormalAshtabula County Medical CenterTIBC Calculatedon 17-66-5333Lnxm binding capacity [Mass/Vol]480 microgram/kOToro836-609JzpfbqAshtabula County Medical CenterComment on above:Performed By: #### 1813080, 8685490, 1363949, 9390650, 94267705, 006416249, 6194093, 74844860, 0084615, 406544932 #### [facility] [address], [place] [address]Nmxpihjsyvj [Mass/Vol]343 mg/mVHfvils661-634CfmxduAshtabula County Medical CenterComment on above:Performed By: #### 5531507, 4442889, 2036232, 4947393, 42596460, 657091805, 2056002, 32407627, 0622439, 096881536 #### [facility] [address], [place] [address]BX Spine Cervical 6 or More Viewson 06-62-9728GA Spine Cervical 6 or More ViewsExam Date/Time: [...] Bharath Morris MD Transcribed by: BECKIE Technologist: CarmelitaAshtabula County Medical CenterCoding Summary.on 83-04-5449Iaswur Summary. CD:[id number]:[id number]+PGhlYWQ+YE3TCEGtS41ehZXhxE7TA2pUVO0MTMDJWITFMX7PMF5ou MH9UIexU8VnkqXn [file] YXBz (more content not included)...NormalAshtabula County Medical CenterAuto Diffon 70-41-8429Nmwzlrhyj/100 WBC (Bld)1.3 %Normal0.0-2.0[facility] Comment on above:Order Comment: Order Added by Discern Expert.Performed By: #### 2876889, 6374252, 9274068, 1711596, 48191503, 647323675, 6671352, 45198039, 5847859, 270663275 #### [facility] [address], [place] [address]Rpgovyzpc/Leukocytes Auto (Bld) [Pure # fraction]0.1 E9/LNormal 0.0-0.2FMagruder HospitalComment on above:Order Comment: Order Added by Discern Expert.Performed By: #### 6391543, 1770216, 4660357, 5448400, 76720625, 188867966, 7463275, 31213156, 3376884, 160017893 #### [facility] [address], [place] [address]Dozjabxyvkn/100 WBC (Bld)3.2 %Normal0.0-8.0[facility] County Medical CenterComment on above:Order Comment: Order Added by Discern Expert.Performed By: #### 0075659, 4909834, 8264227, 0175521, 11035148, 997545783, 8599567, 87391657, 2150254, 828351322 #### [facility] [address], [place] [address]Xsisbljbsyv/Leukocytes Auto (Bld) [Pure # fraction]0.1 E9/L Normal0.0-0.5FMagruder HospitalComment on above:Order Comment: Order Added by Discern Expert.Performed By: #### 8912842, 3834879, 0653771, 8054929, 29599238, 763868699, 1086679, 88928749, 2121953, 584254817 #### [facility] [address], [place] [address]Jnqjavdxeqe/100 WBC (Bld)32.7 %Gnjbfm35.0-50.0[facility] Medical CenterComment on above:Order Comment: Order Added by Discern Expert. Performed By: #### 0108591, 4745095, 8741297, 1682313, 22342137, 230396173, 4664620, 62302777, 2557001, 878007447 #### [facility] [address] [place] [address] 32634Byyyymkrqsw/Leukocytes Auto (Bld) [Pure # fraction]1.5 E9/L Normal1.0-4.0[facility] County Medical CenterComment on above:Order Comment: Order Added by Discern Expert.Performed By: #### 5800146, 2533193, 3217724, 7142550, 66952409, 779531036, 3552416, 51661226, 8213871, 600246887 #### [facility] [address] [place] [address]Fgihxzqvz/100 WBC (Bld)12.3 %Normal4.0-14.0[facility] County Medical CenterComment on above:Order Comment: Order Added by Discern Expert.Performed By: #### 3881000, 1387001, 2923790, 0519021, 79383609, 415882015, 0100947, 20507319, 4082565, 167761344 #### [facility] [address] [place] [address]Znybjsytv/Leukocytes Auto (Bld) [Pure # fraction]0.5 E9/LNormal 0.2-1.0[facility] Medical CenterComment on above:Order Comment: Order Added by Discern Expert.Performed By: #### 9941733, 3742168, 8105254, 2108466, 07052654, 025391759, 2750369, 41551214, 9960552, 571036096 #### [facility] [address], [place] [address]Yuxhuhpzoub/100 WBC (Bld)50.5 %Qdexiz63.0-75.0[facility] Medical CenterComment on above:Order Comment: Order Added by Discern Expert. Performed By: #### 8599439, 2433381, 2539483, 7179739, 38937898, 058276302, 0751970, 00830962, 7581968, 868116792 #### [facility] [address], [place] [address]Aewxaqdyusl/Leukocytes Auto (Bld) [Pure # fraction]2.2 E9/L Normal2.0-7.5FMagruder HospitalComment on above:Order Comment: Order Added by Discern Expert.Performed By: #### 4587724, 4086889, 1106652, 8577938, 52734242, 317142750, 5740212, 13380317, 7701363, 376622440 #### [facility] [address] [place] [address]IBQ w/ Auto Diffon 99-27-6748Jddwyirajyu distribution width (RBC) [Ratio]14.8 %High10.9-14.2FMagruder HospitalComment on above: Performed By: #### 3671543, 5236265, 5028843, 4916986, 68134288, 011404930, 7031945, 16332231, 4007306, 470322576 #### [facility] [address], [place] [address]Eqqacebxrn (Bld) [Volume fraction]38.6 %Khxmwq22.0-46.0[facility] Medical CenterComment on above:Performed By: #### 2587717, 9157535, 1564011, 3160850, 83729207, 640537454, 0004201, 70024525, 6161170, 607589161 #### [facility] [address], [place] [address]Brtwnaaftc (Bld) [Mass/Vol]13.2 g/mSViiwup97.0-16.0[facility] Medical CenterComment on above:Performed By: #### 4442303, 2876875, 4213378, 5737701, 22371330, 513998237, 8799172, 15804417, 7811492, 207496233 #### [facility] [address], [place] [address]IVQ (RBC) [Entitic mass]27.2 ksKswsrz64.0-34.0[facility] Medical CenterComment on above:Performed By: #### 8636396, 2293320, 8827614, 3816890, 80514323, 494369516, 3287491, 71351657, 7445311, 246688813 #### [facility] [address] [place] [address]CHMA (RBC) [Mass/Vol]34.3 g/zMMtdlif02.4-36.0[facility] Medical CenterComment on above:Performed By: #### 6644808, 0341300, 0007554, 9983544, 14108079, 691724123, 8831780, 03010942, 2911312, 282111915 #### [facility] [address] [place] [address] 51933IZE (RBC) [Entitic vol]79.3 fLLow80.0-100.0[facility] Medical CenterComment on above:Performed By: #### 7206171, 6882099, 8592983, 8896646, 29853438, 027122840, 3335017, 72191900, 1503933, 552308777 #### [facility] [address], [place] [address]Fahgwrkd mean volume (Bld) [Entitic vol]7.2 fLNormal6.4-10.8 [facility] Medical CenterComment on above:Performed By: #### 3587272, 9993632, 2810340, 0830848, 23670649, 832738355, 6473592, 50710915, 6152834, 942030161 #### [facility] [address], [place] [address]Dnvwmbgrw (Bld) [#/Vol]341.0 E9/LJlfacb960.0-500.0[facility] Medical CenterComment on above:Performed By: #### 5361793, 9040020, 8702458, 4661976, 89603354, 245171449, 0832556, 49640837, 7190617, 675150098 #### [facility] [address], [place] [address]HWJ (Bld) [#/Vol]4.9 E12/LNormal4.3-5.9[facility] Medical CenterComment on above:Performed By: #### 3135746, 8406484, 8712029, 3367355, 47109297, 162244127, 2691149, 67259159, 0582340, 195334976 #### [facility] [address], [place] [address]OIH corrected for nucl RBC Auto (Bld) [#/Vol]4.4 E9/LNormal 4.0-11.0[facility] Medical CenterComment on above:Performed By: #### 0481163, 8966737, 5501558, 6396690, 36130909, 451357411, 1571898, 27889078, 7656846, 741447416 #### [facility] [address], [place] [address]FDOSLSUFGRekhrni By: SYSTEM SYSTEM on - hydroxyvitamin D3 [Mass/Vol]68.7 ng/pTVlyogh66.0 - 100.0 ng/mLFTMC Remisol Albumin [Mass/Vol]4.8 g/dLNormal3.3 - 5.0 gm/dLFTMC RemisolAlbumin/Globulin [Mass ratio]1.7 {ratio}Normal1.1 - 2.2[facility] RemisolALP [Catalytic activity/Vol]83 [iU]/lZgzeqs73 - 98 Int._Unit/LFTMC RemisolALT No additional P-5'-P [Catalytic activity/Vol]23 [iU]/dNormal6 - 46 Int._Unit/LFTMC RemisolAnion gap [Moles/Vol] 11 mmol/LNormal6 - 16 mEq/LFT[facility] RemisolAST [Catalytic activity/Vol]29 [iU]/d Normal5 - 43 Int._Unit/LFTMC RemisolBilirubin [Mass/Vol]0.3 mg/dLNormal0.0 - 1.1 mg/dLFTMC RemisolCalcium [Mass/Vol]9.5 mg/dLNormal8.9 - 11.1 mg/dLFTMC Remisol Chloride [Moles/Vol]96 mmol/UAjp165 - 111 mmol/LFTMC RemisolCholesterol [Mass/Vol]127 mg/xYFzyodu976 - 200 mg/dLFTMC RemisolCholesterol in HDL [Mass/Vol]59 mg/dLInvalid Interpretation CodeFTMC RemisolCholesterol in LDL [Mass/Vol]65 mg/dLNormal<=129mg/dLFTMC RemisolCholesterol in VLDL [Mass/Vol]12 mg/dLNormal7 - 40 mg/dLFT[facility] RemisolCO2 [Moles/Vol]28 mmol/SXaeljz14 - 31 mmol/L [facility] RemisolCreatinine [Mass/Vol]0.7 mg/dLNormal0.5 - 1.3 mg/dLFT[facility] Remisol Ferritin [Mass/Vol]28 ng/fDMquebb82 - 307 ng/mLFTMC RemisolGFR/1.73 sq M.predicted among blacks MDRD (S/P/Bld) [Vol rate/Area]mL/min/1.73 c0Hgkqdo >=59mL/min/1.73 m2FT[facility] Chem SGFR/1.73 sq M.predicted among non-blacks MDRD (S/P/Bld) [Vol rate/Area]mL/min/1.73 v7Jihvcq>=59mL/min/1.73 m2FT Chem S Globulin (S) [Mass/Vol]2.9 g/dLNormal1.4 - 4.0 gm/dLO[facility]LA[facility] RemisolGlucose [Mass/Vol]103 mg/hUBbbqdd68 - 199 mg/dLOKLAHOMA [facility] & [facility] RemisolIron [Mass/Vol]53 ug/dLNormal 35 - 153 mcg/dLOKLAHOMA [facility] & [facility] RemisolIron binding capacity [Mass/Vol]440 ug/jTWhbl605 - 400 mcg/dLOKLAHOMA [facility] & [facility] RemisolPotassium [Moles/Vol]4.9 mmol/LNormal3.5 - 5.3 mmol/LFTMC RemisolProtein [Mass/Vol]7.7 g/dLNormal6.0 - 7.8 gm/dLOKLAH[facility] RemisolSodium [Moles/Vol]130 mmol/LFpv753 - 145 mmol/LFTMC RemisolTransferrin [Mass/Vol]314 mg/fOPpkcbe266 - 370 mg/dLOKLAHOMA [facility] & [facility] RemisolTriglyceride [Mass/Vol]59 mg/dLNormal <=149mg/dLOKLAHOMA [facility] & [facility] RemisolUrea nitrogen [Mass/Vol]17 mg/dLNormal5 - 21 mg/dLOKLAHOMA [facility] & [facility] RemisolUrea nitrogen/Creatinine [Mass ratio]24 mg/prCmhr65 - 20[facility] Remisol CHEMISTRYOrdered By: Vaibhav Suarez on 39-81-2543VtE1s (Bld) [Mass fraction] 5.3 %Normal<=5.9%[facility] ChemAutoSSCMPon 20-10-2758Rzikiqd [Mass/Vol]4.8 g/dLNormal 3.3-5.0[facility] Centerer [facility] Hospital Of BaltimoreComment on above:Performed By: #### 0072181, 6615759, 2303505, 3573668, 33367339, 666783354, 6307448, 77265054, 3102442, 915942973 #### [facility] [address] [place] [address]Kdcruya/Globulin (S) [Mass conc ratio]1.9Smpukg8.1-2.2[facility] Hospital Of BaltimoreComment on above:Performed By: #### 9520525, 2900763, 5678647, 1303287, 98970822, 641412956, 0250422, 83114351, 5270425, 783804938 #### [facility] [address], [place] [address]XXH [Catalytic activity/Vol]83 Int._Unit/TCfaqqr47-82OyrpdaAshtabula County Medical CenterComment on above:Performed By: #### 8784467, 5572890, 4893802, 3883607, 74633994, 961201881, 0730927, 39783424, 8427728, 820037669 #### [facility] [address], [place] [address]APR No additional P-5'-P [Catalytic activity/Vol]23 Int._Unit/L Normal6-46[facility] Medical CenterComment on above:Performed By: #### 3643581, 4772957, 0792172, 0639969, 04651458, 358703394, 2224760, 07749850, 2633397, 574232085 #### [facility] [address] [place] [address]Kauyg gap [Moles/Vol]11 mmol/LNormal6-16[facility] CenterComment on above:Performed By: #### 1748334, 5085450, 4213522, 4535035, 77635653, 329201848, 0926974, 59245292, 4409057, 306985362 #### [facility] [address], [place] [address]TYN [Catalytic activity/Vol]29 Int._Unit/LNormal5-43[facility] Medical CenterComment on above:Performed By: #### 5905990, 4909473, 7175382, 1796646, 44461377, 675076730, 3297704, 38787129, 1811999, 950270874 #### [facility] [address], [place] [address]Ovrpabqla [Mass/Vol]0.3 mg/dLNormal0.0-1.1[facility] Hospital Of BaltimoreComment on above:Performed By: #### 3658638, 0826075, 2030073, 1515824, 91591744, 818116056, 6992387, 00326982, 7160017, 896928295 #### [facility] [address], [place] [address]Piczdad [Mass/Vol]9.5 mg/dLNormal8.9-11.1FMagruder HospitalComment on above:Performed By: #### 0456109, 7897069, 2028002, 0928708, 65398214, 838509691, 9416546, 71473999, 7390533, 452583081 #### [facility] [address], [place] [address]Bigomjzb [Moles/Vol]96 mmol/IJro812-256ThohruAshtabula County Medical CenterComment on above:Performed By: #### 9978734, 6272624, 4824285, 8990651, 89190476, 422161496, 8015742, 87315437, 7650594, 009744131 #### [facility] [address], [place] [address]JD5 [Moles/Vol]28 mmol/FRjpleg29-18GrfzvfAshtabula County Medical Center Comment on above:Performed By: #### 1862472, 5626223, 1045219, 2204029, 32510716, 164808209, 9996400, 63271540, 9817362, 705501889 #### [facility] [address], [place] [address]Eoecxcysgh [Mass/Vol]0.7 mg/dLNormal0.5-1.3FMagruder HospitalComment on above:Performed By: #### 9217082, 1837599, 2198769, 2569288, 03157087, 008108106, 8294648, 77069056, 8674866, 056039311 #### [facility] [address], [place] [address]Uddhejhf (S) [Mass/Vol]2.9 g/dLNormal1.4-4.0[facility] Medical CenterComment on above:Performed By: #### 7603767, 3124407, 8093668, 9050157, 34452475, 526608049, 7958686, 72384356, 0543718, 873731941 #### [facility] [address], [place] [address]Tefpltl [Mass/Vol]103 mg/nSOdfghx61-518EiklghAshtabula County Medical CenterComment on above:Result Comment: If this glucose result represents a fasting glucose, interpretation should refer tothe following reference range: 55-99 mg/dLPerformed By: #### 4271721, 1967497, 6102877, 7804743, 94497838, 053663185, 0753474, 74684220, 8184242, 970588409 #### [facility] [address] [place] [address]Unjbdtdda [Moles/Vol]4.9 mmol/LNormal3.5-5.3FMagruder HospitalComment on above:Performed By: #### 6985572, 4510334, 5953122, 1221673, 59007465, 008217832, 6074296, 48193605, 9290064, 710441075 #### [facility] [address] [place] [address]Fiophpj [Mass/Vol]7.7 g/dLNormal6.0-7.8As[facility] Medical CenterComment on above:Performed By: #### [id number], 3982320, 9564271, 2645072, 32458636, 859122659, 0671599, 03157864, 9730081, [id number] #### [facility] [address] [place] [address] 30705Ksbcfc [Moles/Vol]130 mmol/UDcp943-792NjjabnAshtabula County Medical CenterComment on above:Performed By: #### 1236392, 3839570, 1383927, 8902927, 46692154, 039180442, 5575715, 76271019, 0807099, 285507424 #### [facility] [address], [place] [address]Azyk nitrogen [Mass/Vol]17 mg/dLNormal5-21As[facility] Medical CenterComment on above:Performed By: #### [id number], 9683026, 1689368, 0880767, 53985259, 529433052, 5811403, 94786131, 9285661, 509962225 #### [facility] [address], [place] [address]Bmim nitrogen/Creatinine [Mass ratio]24 No LlvklZpjf51-35PhlnghAshtabula County Medical CenterComment on above:Performed By: #### [id number], 1510732, 4863694, 2083899, 31448498, 124873817, 3481415, 58567525, 7866629, [id number] #### [facility] [address], [place] [address]Dybokag for Treatmenton 98-97-5171Eeuzgag for Treatment [id number]#1.00CD:127NormalAshtabula County Medical CenterFerritinon 45-54-0617Cptnjvtx [Mass/Vol]28 ng/oUApyxac14-688NqmbqyAshtabula County Medical CenterComment on above:Result Comment: NORMALS MEN <30 YRS 16-132 ng/mL MEN >30 YRS 8-338 ng/mL WOMEN (PREMEN) 6-104 ng/mL WOMEN (POSTMEN) 12-210 ng/mLPerformed By: #### [id number], 9355962, 6354138, 0124293, 18066666, 538611571, 4583830, 29679184, 0795969, 128160145 #### [facility] [address], [place] [address]TOSGNTKTYSIenrton By: SYSTEM SYSTEM on 14-30-8611Mqiwlnldf/100 WBC (Bld)1.3 %Normal0.0 - 2.0 %[facility] HemeAutoSSBasophils/Leukocytes Auto (Bld) [Pure # fraction]0.1 E9/LNormal0.0 - 0.2 E9/LFTMC HemeAutoSSEosinophils/100 WBC (Bld)3.2 %Normal0.0 - 8.0 %[facility] HemeAutoSSEosinophils/Leukocytes Auto (Bld) [Pure # fraction]0.1 E9/LNormal0.0 - 0.5 E9/LFTMC HemeAutoSSLymphocytes/100 WBC (Bld)32.7 %Krersi56.0 - 50.0 %[facility] HemeAutoSSLymphocytes/Leukocytes Auto (Bld) [Pure # fraction]1.5 E9/LNormal1.0 - 4.0 E9/LFTMC HemeAutoSSMonocytes/100 WBC (Bld)12.3 %Normal4.0 - 14.0 %[facility] HemeAutoSSMonocytes/Leukocytes Auto (Bld) [Pure # fraction]0.5 E9/LNormal0.2 - 1.0 E9/LFTMC HemeAutoSSNeutrophils/100 WBC (Bld)50.5 %Gzmcnq38.0 - 75.0 %[facility] HemeAutoSSNeutrophils/Leukocytes Auto (Bld) [Pure # fraction]2.2 E9/LNormal2.0 - 7.5 E9/LFTMC HemeAutoSSHEMATOLOGYOrdered By: Alyssa Maloney on 46-31-5453Uxrjctguqcv distribution width (RBC) [Ratio]14.8 %High10.9 - 14.2 %[facility] HemeAutoSSHematocrit (Bld) [Volume fraction]38.6 %Normal 34.0 - 46.0 %[facility] HemeAutoSSHemoglobin (Bld) [Mass/Vol]13.2 g/mSXtcblv80.0 - 16.0 gm/dLFTMC HemeAutoSSMCH (RBC) [Entitic mass]27.2 nnSrrfgm73.0 - 34.0 pgFTMC HemeAutoSSMCHC (RBC) [Mass/Vol]34.3 g/pGEmenrb64.4 - 36.0 gm/dLFTMC HemeAutoSS MCV (RBC) [Entitic vol]79.3 fLLow80.0 - 100.0 fLFTMC HemeAutoSSPlatelet mean volume (Bld) [Entitic vol]7.2 fLNormal6.4 - 10.8 [facility] HemeAutoSSPlatelets (Bld) [#/Vol]341.0 E9/JWivqoc434.0 - 500.0 E9/[facility] HemeAutoSSRBC (Bld) [#/Vol] 4.9 E12/LNormal4.3 - 5.9 E12/[facility] HemeAutoSSWBC corrected for nucl RBC Auto (Bld) [#/Vol]4.4 E9/LNormal4.0 - 11.0 E9/[facility] IeazSaqzLSKqiL2cdf 10-25-2021 HbA1c (Bld) [Mass fraction]5.3 %Normal<=5.9[facility] CenterComment on above:Performed By: #### [id number], 9593969, 7702775, 9174020, 06605301, 644771788, 3936131, 48779755, 1401249, 568401688 #### [facility] [address], [place] [address]Wtenws 84-78-7726Gqgc [Mass/Vol]53 microgram/oNJtyxrv00-714 [facility] CenterComment on above:Performed By: #### 2404071, 5828215, 6870155, 0584733, 35651406, 184244991, 7232909, 96254476, 3610503, 471264253 #### [facility] [address], [place] [address]Sreow Panelon 58-57-8074Gnhljlpgrae [Mass/Vol]127 mg/dLNormal 120-200[facility] CenterComment on above:Performed By: #### 4178834, 6201431, 7061967, 7973970, 25324313, 514690168, 5970960, 09090992, 7598579, 859436197 #### [facility] [address], [place] [address]Fnjqbzkcmoy in HDL [Mass/Vol]59 mg/dLInvalid Interpretation CodeAshtabula County Medical CenterComment on above:Result Comment: HDL > or equal to 60 mg/dL: Low cardiovascular risk HDL < 40 mg/dL : High cardiovascular riskPerformed By: #### 5985821, 9652162, 4294688, 8655292, 26480960, 061420195, 6028115, 89466617, 7573894, 210594000 #### [facility] [address], [place] [address]Bjwzwaksgze in LDL [Mass/Vol]65 mg/dLNormal<=129[facility] CenterComment on above:Performed By: #### 7826193, 5619277, 6244235, 0903526, 34023536, 398626776, 9555025, 89714434, 7099171, 331495873 #### [facility] [address], [place] [address]Iybgeyhzzey in VLDL [Mass/Vol]12 mg/dLNormal7-40[facility] CenterComment on above:Performed By: #### 5487625, 4093618, 7242605, 9870931, 28689430, 849993852, 2525418, 76194474, 0679462, 074937146 #### [facility] [address], [place] [address]Cgyyfjdtfyiv [Mass/Vol]59 mg/dLNormal<=149[facility] CenterComment on above:Performed By: #### 6502552, 9781702, 1876131, 9395753, 77216648, 372587074, 9893682, 13241407, 1094190, 474820462 #### [facility] [address], [place] [address]Qqszyujuw Orderon 09-54-9045Ctqnsletx Order [id number]#1.00CD:127NormalAshtabula County Medical CenterTIBC Calculatedon 74-29-3278Wfve binding capacity [Mass/Vol]440 microgram/qUVwvu585-586PnbmsxAshtabula County Medical CenterComment on above:Performed By: #### 6306239, 7747810, 2036104, 2623470, 62128344, 122595608, 5901781, 52699525, 2717424, 903420366 #### [facility] [address], [place] [address]Yekanvnkxit [Mass/Vol]314 mg/yLKwleeo586-836YvxuofAshtabula County Medical CenterComment on above:Performed By: #### 0369381, 6053164, 3492845, 0391159, 07031667, 352748663, 6912246, 66029118, 8091373, 213185312 #### [facility] [address], [place] [address]Fbczpyq D 25 Hydroxyon 020872-ysgtwovzqdefzw D3 [Mass/Vol]68.7 ng/nFKulnac00.0-100.0[facility] County Medical CenterComment on above: Result Comment: Vitamin D deficiency has been defined as a level of serum 25-OH vitamin D less than 20 ng/mL (1,2) by the [place] of Medicine and an Endocrine Society practice guideline. The Endocrine Society further defined vitamin D insufficiency as a level between 21 and 29 ng/mL (2). 1. IOM ([place] of Medicine). 2010. Dietary reference intakes for calcium and D. [place]: The National Academies Press. 2. Sarah MF, Ligia NC, Skylar BALDERAS, et al. Evaluation, treatment, and prevention of vitamin D deficiency: an Endocrine Society clinical practice guideline. JCEM. 2010; 96 (7):1911-30.Performed By: #### 7503893, 8137045, 6474077, 8596249, 42244615, 119086182, 7426378, 04781811, 7884615, 588040354 #### [facility] [address], [place] [address]jRRBts 01-75-0260YLQ/1.73 sq M.predicted among blacks MDRD (S/P/Bld) [Vol rate/Area]mL/min/{1.73_m2}Normal>=59[facility] Comment on above:Order Comment: Order Added by Discern Expert.Result Comment: eGFR is race adjusted. AA=.Performed By: #### 0665674, 0819884, 2531034, 8248057, 37618505, 471009138, 2061642, 52457704, 6972524, 128667941 #### [facility] [address], [place] [address]FXV/1.73 sq M.predicted among non-blacks MDRD (S/P/Bld) [Vol rate/Area]mL/min/{1.73_m2}Normal>=59[facility] County Medical CenterComment on above: Order Comment: Order Added by Discern Expert.Result Comment: Chronic kidney disease could be indicated at eGFR's of less than 60 mL/min/1.73m2. Kidney failure is indicated at less than 15 mL/min/1.73m2.Performed By: #### 6799914, 4422374, 4220233, 4623479, 88324274, 916140726, 2433990, 25716591, 2524338, 588785687 #### [facility] [address], [place] [address]Iuyhsfa Screening.on 66-71-4138Upbnj depression screening assessmentPerham [facility] 600 DO Work Phone: Fall risk assessmenta) No falls within the last year [facility] 600 DO Work Phone: Tobacco use status CPHSb) [facility] 600 DO Work Phone: CHEMISTRYOrdered By: SYSTEM SYSTEM on 19-87-1639VJH [Mass/Vol]0.7 mg/dLNormal<=1.9mg/dLFTMC RemisolFerritin [Mass/Vol]31 ng/mLNormal 11 - 307 ng/mLFTMC RemisolIron [Mass/Vol]45 ug/xEDnetpk39 - 153 mcg/dLFTMC RemisolIron binding capacity [Mass/Vol]430 ug/rCAyyf822 - 400 mcg/dLFTMC Remisol Transferrin [Mass/Vol]307 mg/xRDvwkhk273 - 370 mg/dLFTMC RemisolHEMATOLOGY Ordered By: Fibroblast SYSTEM on 96-53-6302Isqdsmkvc/100 WBC (Bld)0.6 %Normal0.0 - 2.0 %[facility] HemeAutoSSBasophils/Leukocytes Auto (Bld) [Pure # fraction]0.0 E9/L Normal0.0 - 0.2 E9/LFTMC HemeAutoSSEosinophils/100 WBC (Bld)7.1 %Normal0.0 - 8.0 %[facility] HemeAutoSSEosinophils/Leukocytes Auto (Bld) [Pure # fraction]0.2 E9/L Normal0.0 - 0.5 E9/LFTMC HemeAutoSSLymphocytes/100 WBC (Bld)24.5 %Rsuljp46.0 - 50.0 %[facility] HemeAutoSSLymphocytes/Leukocytes Auto (Bld) [Pure # fraction]0.7 E9/L Low1.0 - 4.0 E9/LFTMC HemeAutoSSMonocytes/100 WBC (Bld)14.1 %High4.0 - 14.0 % [facility] HemeAutoSSMonocytes/Leukocytes Auto (Bld) [Pure # fraction]0.4 E9/LNormal 0.2 - 1.0 E9/LFTMC HemeAutoSSNeutrophils/100 WBC (Bld)53.7 %Kpnymj20.0 - 75.0 % [facility] HemeAutoSSNeutrophils/Leukocytes Auto (Bld) [Pure # fraction]1.5 E9/LLow2.0 - 7.5 E9/LFTMC HemeAutoSSHEMATOLOGYOrdered By: Jesusita Marvin on 07-30-2021 Erythrocyte distribution width (RBC) [Ratio]18.9 %High10.9 - 14.2 %[facility] HemeAutoSSHematocrit (Bld) [Volume fraction]38.6 %Mhwode51.0 - 46.0 %[facility] HemeAutoSSHemoglobin (Bld) [Mass/Vol]12.8 g/pXOlelkz20.0 - 16.0 gm/dLFTMC HemeAutoSSMCH (RBC) [Entitic mass]25.4 pgLow27.0 - 34.0 pgFINTEGRIS [facility] [place] [facility] HemeAutoSSMCHC (RBC) [Mass/Vol]33.2 g/mLMndnjj17.4 - 36.0 gm/dLFT HemeAutoSSMCV (RBC) [Entitic vol]76.5 fLLow80.0 - 100.0 fLOKLA[facility] HemeAutoSSPlatelet mean volume (Bld) [Entitic vol]7.0 fLNormal6.4 - 10.8 [facility]LO[facility]LA[facility] HemeAutoSSPlatelets (Bld) [#/Vol] 220.0 E9/EQxdchw622.0 - 500.0 E9/LFTMC HemeAutoSSRBC (Bld) [#/Vol]5.0 E12/L Normal4.3 - 5.9 E12/LFC HemeAutoSSWBC corrected for nucl RBC Auto (Bld) [#/Vol]2.8 E9/LLow4.0 - 11.0 E9/LFC HemeAutoSSHEMATOLOGYOrdered By: Kinjal Alvarado on 23-31-4684Eqm Rate Ywjnvlhzt93 mm/hNormal0 - 34 mm/hrFTMC HemeAutoSSXR KNEE RIGHT (3 VIEWS)on 75-89-3737SO KNEE RIGHT (3 VIEWS)EXAM: XR KNEE RIGHT [...] patellofemoral joint space narrowing is present with jldd-wy-zzny contact and show clear groove remodeling as well as mild lateral subluxation of the patella. Large suprapatellar joint effusion is present. IMPRESSION: 1. No acute osseous abnormality. 2. Severe patellofemoral joint degenerative change with vqsj-gz-jnaw contact and trochlear remodeling. Mild femorotibial joint space narrowing with chondrocalcinosis at the femorotibial joint. 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 Interpreted by: Greg Mercado MD Signed by: Greg Mercado MD 09/29/18 Final resultNoSouthview Medical Center Vital Signs Date TimeVital SignValuePerforming QcntktdddPnypdtxd43-37-7913 15:51-0500Body .9 cmPaul Navdeep DO Work Phone: [facility] CenterIwqhffjoax97-95-8029 15:51-0500Body mass index (BMI) [Ratio]28.15 kg/m2Paul Lafabbiey DO Work Phone: [facility] CenterBbcvbrdawn83-27-4569 15:51-0500Body uvhgtm20.59 kgPaul Courtneyy DO Work Phone: [phone] CenterGckqplgkua20-96-5217 14:08-0500Diastolic blood pxwtbmde37 mm[Hg]Mayco Velasquez DO Work Phone: 1(461)[address] [place], [place] [address]1911-10-2025 14:08-0500 Heart rate72 /minDavishantanu Clotilde DO Work Phone: [phone])[address] [place], [place] [address]1911-10-2025 14:08-0500 Systolic blood qbobpgzl390 mm[Hg]Mayco Velasquez DO Work Phone: 1(551)[address] [place], [place] 7[address]1911-10-2025 13:44-0500 Body amjjci487.94 cmDatramaine Clotilde DO Work Phone: 1(335)[address] [place], [place] 7[address]1911-10-2025 13:44-0500 Body mass index (BMI) [Ratio]27.9 kg/y1Nqcio Clotilde DO Work Phone: 1(104)[address] [place], [place] 7[address]1911-10-2025 13:44-0500 Body aelqxoaivoo03.2 [degF]Mayco Velasquez DO Work Phone: 1(342)[address] [place], [place] [address]1911-10-2025 13:44-0500 Body xrdzed68.13 kgDatramaine Henryjessica DO Work Phone: 1(605)[address] [place], [place] [address]1911-10-2025 13:44-0500 SaO2% (BldA) [Mass fraction]98 %Mayco Velasquez DO Work Phone: [phone])[address] [place], [place] 7211910-20-2025 14:47-0400 Body hjnarj776.9 cmFredric Itzkowitz DO Work Phone: 1(249)[address] [place], [place] [address]623210-20-2025 14:47-0400Body mass index (BMI) [Ratio]28.15 kg/n7Hgsxbwu Itzkowitz DO Work Phone: [phone]88[facility] CenterZurbksvhjp67-45-1044 14:47-0400Body .59 kgFredric Itzkowitz DO Work Phone: 1(549)[address] [place], [place] 0623209-19-2025 08:08-0400Body kqcugr655.94 cmDavishantanu Clotilde DO Work Phone: [phone])[address] [place], [place] [address]211909-19-2025 08:08-0400 Body mass index (BMI) [Ratio]29.2 kg/s7Yrmvj Girjessica DO Work Phone: 1(265)[address] [place], [place] 7211909-19-2025 08:08-0400 Body sjnoiaijjgv29.6 [degF]Mayco Velasquez DO Work Phone: 1(841)[address] [place], [place] [address]211909-19-2025 08:08-0400 Body ylbzmg54.3 kgDatramaine Elainejessica DO Work Phone: 1(689)[address] [place], [place] [address]211909-19-2025 08:08-0400 Diastolic blood ulanfymb04 mm[Hg]Mayco Velasquez DO Work Phone: 1(786)[address] [place], [place] [address]211909-19-2025 08:08-0400 Heart rate77 /minDavishantanu Velasquez DO Work Phone: 1(710)[address] [place], [place] 7[address]1909-19-2025 08:08-0400 SaO2% (BldA) [Mass fraction]98 %Mayco Velasquez DO Work Phone: 1(271)[address] [place], [place] [address]211909-19-2025 08:08-0400 Systolic blood notpwezl745 mm[Hg]Mayco Velasquez DO Work Phone: 1(015)[address] [place], [place] 7211907-09-2025 09:05-0400 Body xbhxaz430.9 cmDeb Zamora MD Work Phone: [phone]07-09-2025 09:05-0400 Body mass index (BMI) [Ratio]29.48 kg/g1JossniDeb Zamora MD Work Phone: [phone](211)471-[address] [place], [place] 0272307-09-2025 09:05-0400 Body tuvnun06.76 kgDeb Zamora MD Work Phone: [phone])[address]07-09-2025 09:05-0400 Diastolic blood hiuuireq67 mm[Hg]Deb Zamora MD Work Phone: 5(635)[address]07-09-2025 09:05-0400 Heart rate60 /minDeb Zamora MD Work Phone: 0(922)[address]07-09-2025 09:05-0400 Systolic blood pftqduul509 mm[Hg]Deb Zamora MD Work Phone: 0(708)760-[address] [place], [place] 0272305-05-2025 01:00-0400 Diastolic blood jtlibiyy06 mm[Hg]Mayco Velasquez DO Work Phone: 1(582)[address]05-05-2025 01:00-0400 Heart rate64 /Himanshu Velasquez DO Work Phone: 5(450)[address]05-05-2025 01:00-0400 Respiratory rate18 /Himanshu Velasquez DO Work Phone: 3(250)622-[address] [place], [place] 0610505-05-2025 01:00-0400 SaO2% (BldA) [Mass fraction]100 %Mayco Velasquez DO Work Phone: 1(479)668-[address] [place], [place] 0610505-05-2025 01:00-0400 Systolic blood uatejkli211 mm[Hg]Mayco Velasquez DO Work Phone: 1(573)[address]05-04-2025 23:54-0400 Body vnopzz071.94 cmDatramaine Velasquez DO Work Phone: 3(817)[address]05-04-2025 23:54-0400 Body liqvxv74.9 kgDatramaine Velasquez DO Work Phone: 1(226)[address]05-04-2025 23:47-0400 Body gvocejnzjfr41.6 [degF]Mayco Velasquez DO Work Phone: 1([phone])[address]03-19-2025 08:03-0400 Body uleeds456.21 cmDatramaine Velasquez DO Work Phone: 1(858)[address]03-19-2025 08:03-0400 Body mass index (BMI) [Ratio]31.8 kg/s5Urxpmtramaine Velasquez DO Work Phone: [phone])[address]03-19-2025 08:03-0400 Body awpryqvhfjh57.3 [degF]Mayco Velasquez DO Work Phone: 1(640)[address] [place], [place] 7211903-19-2025 08:03-0400 Body udybst84.56 kgDatramaine Velasquez DO Work Phone: 1(969)[address] [place], [place] 7[address]1903-19-2025 08:03-0400 Diastolic blood culjwird12 mm[Hg]Mayco Velasquez DO Work Phone: 1(965)[address] [place], [place] 7211903-19-2025 08:03-0400 Heart rate70 /minDavishantanu Velasquez DO Work Phone: 1(304)[address] [place], [place] 7[address]1903-19-2025 08:03-0400 Systolic blood juhsrpbt700 mm[Hg]Mayco Velasquez DO Work Phone: 1(843)[address]03-05-2025 09:30-0500 Body wemzco095.9 cmPacc 2 Work Phone: [facility]03-05-2025 09:30-0500Body mass index (BMI) [Ratio]32.91 kg/m2Pacc 2 Work Phone: [facility]03-05-2025 09:30-0500Body temperature 97.9 [degF]Pacc 2 Work Phone: [facility]03-05-2025 09:30-0500Body kg Pacc 2 Work Phone: [facility]03-05-2025 09:30-0500Diastolic blood mm[Hg]Pacc 2 Work Phone: [facility]03-05-2025 09:30-0500Heart rate67 /min Pacc 2 Work Phone: [facility]03-05-2025 09:30-0500Respiratory rate 16 /minPacc 2 Work Phone: [facility]03-05-2025 09:30-7578TkU4% (BldA) [Mass fraction]97 %Pacc 2 Work Phone: [facility]03-05-2025 09:30-0500Systolic blood mm[Hg]Pacc 2 Work Phone: [facility]12-24-2024 08:30-0500Body rignfk397.9 cmMichael Cabrera DO Work Phone: [facility] CenterLpindtiwbx77-16-0072 08:30-0500Body mass index (BMI) [Ratio]32.5 kg/r3Prywwwn Cabrera DO Work Phone: [facility] CenterTajbbmjteo79-58-4856 08:30-0500Body xxbeaq70.02 kgMichael Cabrera DO Work Phone: [facility] CenterZyznjsgbdk60-07-7093 08:07-0400Body boucuj218.21 cmDO Mayco Velasquez Work Phone: [facility]09-19-2024 08:07-0400 Body mass index (BMI) [Ratio]32.3 kg/m2DO Mayco Velasquez Work Phone: [facility]09-19-2024 08:07-0400 Body xliosddgsrj30.9 [degF]DO Mayco Velasquez Work Phone: [facility]09-19-2024 08:07-0400 Body depvtw65.92 kgDO Mayco Velasquez Work Phone: [facility]09-19-2024 08:07-0400 Diastolic blood mm[Hg]DO Mayco Velasquez Work Phone: [facility]09-19-2024 08:07-0400 Heart rate70 /minDO Mayco Velasquez Work Phone: [facility]09-19-2024 08:07-0400 SaO2% (BldA) [Mass fraction]97 %DO Mayco Velasquez Work Phone: [facility]09-19-2024 08:07-0400 Systolic blood nsdrqicg667 mm[Hg]DO Mayco Velasquez Work Phone: [facility]09-11-2024 13:28-0400 Body rgremztvpbr80.1 [degF]Spine Main Work Phone: cPome[facility] HospitalWifbhz86-16-8917 13:28-0400Diastolic blood pfmcdsbu46 mm[Hg]Spine Main Work Phone: cPomerene HospitalNziyov31-87-8899 13:28-0400Heart rate73 /min [facility] Main Work Phone: [place]56-85-8979 13:28-0400Respiratory rate 18 /minSpine Main Work Phone: [facility]velDay[facility] HospitalKforyc79-69-5703 13:28-0400Systolic blood bzusgoty591 mm[Hg]Spine Main Work Phone: [facility]velDay[facility]'s HospitalAdvgui52-33-3492 09:56-0400Body .9 Valorie Whelan SENIOR ERP CONSULTANT Work Phone: [facility] CenterOcmdvigghw90-86-6311 09:56-0400Body mass index (BMI) [Ratio]34.28 kg/a0XzuabxAlyssa Whelan SENIOR ERP CONSULTANT Work Phone: NOFreeman [facility] InstituteNodsiyrhjx21-49-4499 09:56-0400Body serahw26.28 kgAlyssa Whelan SENIOR ERP CONSULTANT Work Phone: noFreeman Cancer InstituteBnanietuxe49-87-7071 09:56-0400Diastolic blood yxigpfwr57 mm[Hg]Alyssa Whelan SENIOR ERP CONSULTANT Work Phone: [facility] CenterAskpyezvtk06-57-6034 09:56-0400Systolic blood bxyiynql138 mm[Hg]Alyssa Whelan NP Work Phone: [facility] CenterZdysxregbu00-28-1615 15:41-0400Body .21 cmDO Mayco Velasquez Work Phone: [phone]06[facility]08-06-2024 15:41-0400 Body mass index (BMI) [Ratio]34 kg/m2DO Mayco Velasquez Work Phone: [phone]08-06-2024 15:41-0400 Body xpwcjgqmxui32 [degF]DO Mayco Velasquez Work Phone: 1(585)[address]08-06-2024 15:41-0400 Body gtsrla66 kgDO Mayco Velasquez Work Phone: 1(225)[address]08-06-2024 15:41-0400 Diastolic blood uwhrcsbr61 mm[Hg]DO Mayco Velasquez Work Phone: 1(726)[address]211 [address]08-06-2024 15:41-0400 Heart rate77 /Ej Mayco Henryjessica Work Phone: 1(068)[address]08-06-2024 15:41-0400 Respiratory rate18 /Ej Mayco Henryjessica Work Phone: 1(717)[address]08-06-2024 15:41-0400 SaO2% (BldA) [Mass fraction]96 %DO Mayco Velasquez Work Phone: [phone]53[facility]08-06-2024 15:41-0400 Systolic blood ngxwdezh147 mm[Hg]DO Mayco Velasquez Work Phone: 1(883)[address]07-09-2024 08:56-0400 Body fezuuf340.9 cmDeb Zamora MD Work Phone: [facility]07-09-2024 08:56-0400 Body mass index (BMI) [Ratio]35.14 kg/l6LmcgtvDeb Zamora MD Work Phone: [facility]07-09-2024 08:56-0400 Body .37 kgDeb Zamora MD Work Phone: [facility]07-09-2024 08:56-0400 Diastolic blood mm[Hg]Deb Zamora MD Work Phone: [facility]07-09-2024 08:56-0400 Heart rate64 /minDeb Zamora MD Work Phone: [facility]07-09-2024 08:56-0400 Systolic blood rgktfykj208 mm[Hg]Deb Zamora MD Work Phone: [facility]06-03-2024 14:28-0400 Body ewdyel88.3 kgBelinda Weaver MD Work Phone: [facility]06-03-2024 14:28-0400Diastolic blood oarhzdla58 mm[Hg]Belinda Weaver MD Work Phone: [facility]06-03-2024 14:28-0400Heart rate72 /min Belinda Weaver MD Work Phone: [facility]06-03-2024 14:28-9897ZcB2% (BldA) [Mass fraction]94 %Belinda Weaver MD Work Phone: [facility]06-03-2024 14:28-0400Systolic blood mm[Hg]Belinda Weaver MD Work Phone: [facility]02-28-2024 08:09-0500Body odwhjx363.21 cmDO Mayco Velasquez Work Phone: [facility]02-28-2024 08:09-0500 Body mass index (BMI) [Ratio]35.6 kg/m2DO Mayco Velasquez Work Phone: [facility]02-28-2024 08:09-0500 Body yjhlecetjkg17.1 [degF]DO Mayco Velasquez Work Phone: [facility]02-28-2024 08:09-0500 Body nuxhyr58.08 kgDO Mayco Velasquez Work Phone: [phone]02-28-2024 08:09-0500 Diastolic blood mm[Hg]DO Mayco Velasquez Work Phone: [phone]02-28-2024 08:09-0500 Heart rate67 /Ej Velasquez Work Phone: 1(908)943-[address] [place], [place] 0610502-28-2024 08:09-0500 Respiratory rate18 /Ej Velasquez Work Phone: 1(943)681-[address] [place], [place] 0610502-28-2024 08:09-0500 SaO2% (BldA) [Mass fraction]95 %DO Mayco Velasquez Work Phone: [phone]02-28-2024 08:09-0500 Systolic blood bzfkjfut286 mm[Hg]DO Mayco Velasquez Work Phone: [phone]10-19-2023 09:10-0400 Body bjrkaw047.21 cmDatramaine Velasquez Other [facility] [employer] Other [phone] 09:10-0400Body mass index (BMI) [Ratio] 34.27 kg/i9Huehctramaine Velasquez Other [facility] [employer] Other [phone] 09:10-0400Body akxkjnutzrf90.4 [degF]Mayco Velasquez Other [place] [employer] Other 10-19-2023 09:10-0400Body ntaqvo45.64 kgDatramaine Velasquez Other [facility] [employer] Other 10-19-2023 09:10-0400Diastolic blood hkvdyspy10 mm[Hg] Mayco Velasquez Other [facility] [employer] Other 10-19-2023 09:10-0400Respiratory rate18 /minDavishantanu Velasquez Other [employer] Other 10-19-2023 09:10-0254UzL6% (BldA) [Mass fraction]96 % Mayco Velasquez Other [employer] Other 10-19-2023 09:10-0400Systolic blood btkezuvk790 mm[Hg] Mayco Velasquez Other [employer] Other 08-23-2023 10:30-0400Body .21 cmDatramaine Velasquez Other [employer] Other 08-23-2023 10:30-0400Body mass index (BMI) [Ratio] 33.46 kg/l2Tpcnxtramaine Velasquez Other [employer] Other 08-23-2023 10:30-0400Body ixkura78.65 kgDatramaine Velasquez Other [employer] Other 08-23-2023 10:30-0400Diastolic blood gjhfzxry65 mm[Hg] Mayco Velasquez Other [employer] Other 08-23-2023 10:30-0400Respiratory rate18 /Himanshu Velasquez Other [employer] Other 08-23-2023 10:30-0290HqR3% (BldA) [Mass fraction]96 % Mayco Velasquez Other [employer] Other 08-23-2023 10:30-0400Systolic blood makahcqn054 mm[Hg] Mayco Velasquez Other [employer] Other 07-11-2023 08:33-0400Body zgyxgg835.94 cmDatramaine Henryjessica Work Phone: [phone]) [phone]-[facility]ophbReg[facility] 600 DO Work Phone: 1(243) 623-725607-11-2023 08:33-0400Body mass index (BMI) [Ratio]34.2 kg/n5Wiixjtramaine Velasquez Work Phone: 1([phone]) [phone]-PtwurRegions Hospital 600 DO Work Phone: 1(564) 933-209107-11-2023 08:33-0400Body surface area Derived from formula1.81 j1Uwomotramaine Henryjessica Work Phone: 1(288) [phone]-[facility] 600 DO Work Phone: 1(870) [phone] 08:33-0400Body amufdz87.1 kgDatramaine Velasquez Work Phone: 1(770) [phone]-[facility] 600 DO Work Phone: 1(392) 478-877907-11-2023 08:33-0400Diastolic blood nbypxnup47 mm[Hg] Mayco Velasquez Work Phone: 1(953) [phone][facility] 600 DO Work Phone: 1(666) 552-327507-11-2023 08:33-0400Heart rate78 /minDshelton Velasquez Work Phone: 1(734) [phone]-[facility] 600 DO Work Phone: 1(939) [phone] 08:33-0400Systolic blood bppzwxbu408 mm[Hg] Mayco Velasquez Work Phone: 1(406) [phone]-[facility] 600 DO Work Phone: 1(477) 440-159311-07-2022 10:10-0500Body hjaqfb479.21 cmDavishantanu Velasquez Other [employer] Other 11-07-2022 10:10-0500Body mass index (BMI) [Ratio] 32.71 kg/x8Gragc Girvin Other [employer] Other 11-07-2022 10:10-0500Body eagmonwbbey37.8 [degF]Mayco Velasquez Other [employer] Other 11-07-2022 10:10-0500Body .83 kgDatramaine Velsaquez Other [employer] Other 11-07-2022 10:10-0500Diastolic blood zyxppjbt63 mm[Hg] Mayco Velasquez Other [employer] Other 11-07-2022 10:10-0500Respiratory rate18 /minDshelton Velasquez Other [employer] Other 11-07-2022 10:10-4321ZoW3% (BldA) [Mass fraction]98 % Mayco Velasquez Other [employer] Other 11-07-2022 10:10-0500Systolic blood evritdby561 mm[Hg] Mayco Velasquez Other [employer] Other 08-18-2022 09:10-0400Body exsfym132.21 cmMayco Velasquez Other [employer] Other 08-18-2022 09:10-0400Body mass index (BMI) [Ratio] 31.78 kg/s3WjmiaMayco Velasquez Other [employer] Other 08-18-2022 09:10-0400Body eyagttsyanm26.6 [degF]Mayco Velasquez Other [employer] Other 08-18-2022 09:10-0400Body jwevro11.57 kgDatramaine Velasquez Other [place] [employer] Other 08-18-2022 09:10-0400Diastolic blood bvyfcwbt69 mm[Hg] Mayco Velasquez Other [place] [employer] Other 08-18-2022 09:10-0400Respiratory rate18 /minDavishantanu Velasquez Other [place] [employer] Other 08-18-2022 09:10-5111QgQ4% (BldA) [Mass fraction]98 % Mayco Velasquez Other [place] [employer] Other 08-18-2022 09:10-0400Systolic blood wtlpoaaw818 mm[Hg] Mayco Velasquez Other [place] [employer] Other 07-11-2022 09:33-0400Diastolic blood iuzfaxsj35 mm[Hg] Mayco Velasquez Work Phone: 1([phone]-Czebr [place] [facility] 600 DO Work Phone: 1(558) [phone] 09:33-0400Systolic blood iwgxufgq009 mm[Hg] Mayco Velasquez Work Phone: 1(959) [phone]-Ozchl [place] [facility] 600 DO Work Phone: 1(379) [phone] 09:24-0400Body .94 cmDatramaine Velasquez Work Phone: 1(427) [phone]-Ubizc [place] [facility] 600 DO Work Phone: 1(145) 375-242207-11-2022 09:24-0400Body mass index (BMI) [Ratio] 32.12 kg/q7Irhkbtramaine Velasquez Work Phone: 1(812) [phone]-Ycujv [place] [facility] 600 DO Work Phone: 1(351) 418-870407-11-2022 09:24-0400Body surface area Derived from formula1.76 b4Ffmattramaine Henryjessica Work Phone: 1(231) [phone]-Peeie [facility] 600 DO Work Phone: 1(281) [phone] 09:24-0400Body ctgkje28.11 kgDatramaine Velasquez Work Phone: 1(875) [phone][facility] 600 DO Work Phone: 1(145) [phone] 09:24-0400Diastolic blood irkdnfyn69 mm[Hg] Mayco Velasquez Work Phone: 1(927) [phone]-Ajbrd [facility] DO Work Phone: 1(415) [phone] 09:24-0400Heart rate60 /minDshelton Henryjessica Work Phone: 1(495) [phone]-[facility] 600 DO Work Phone: 1(138) [phone] 09:24-0400Systolic blood siqwklmn72 mm[Hg] Mayco Henryjessica Work Phone: 1(849) [phone]-DahwoRegions Hospital 600 DO Work Phone: 1(921) 660-466306-30-2022 13:32-0400Body bflytkqtjub54.42 [degF] Sade ANDRADE 350-2479Xwnaet-[facility]hjidR[facility] 06-30-2022 13:32-0400Diastolic blood robllgtt61 mm[Hg] Sade ANDRADE 477-8558Qqyuvu-VpavpRiverview [facility] 06-30-2022 13:32-0400Heart rate88 /minSade ANDRADE 101-5547Zmgbhe-KgahsRiverview [facility] 06-30-2022 13:32-6997MdO9% (BldA) [Mass fraction]98 % Sade ANDRADE 933-2310Teeqep-IevckRiverview Health [facility] 06-30-2022 13:32-0400Systolic blood zygrpcel582 mm[Hg] Sade ANDRADE 154-5996Uudqds-MwcemRiverview [facility] 11-10-2021 09:10-0500Body bkvjuq910.21 cmDatramaine Velasquez Other [employer] Other 11-10-2021 09:10-0500Body mass index (BMI) [Ratio] 29.74 kg/v4Wiqaetarmaine Velasquez Other [employer] Other 11-10-2021 09:10-0500Body uowckqxcymg69.3 [degF]Mayco Velasquez Other [employer] Other 11-10-2021 09:10-0500Body zxpypu51.58 kgDatramaine Velasquez Other [employer] Other 11-10-2021 09:10-0500Diastolic blood aruylmcv16 mm[Hg] Mayco Velasquez Other [employer] Other 11-10-2021 09:10-0500Respiratory rate18 /minDshelton Velasquez Other [employer] Other 11-10-2021 09:10-9892CcP4% (BldA) [Mass fraction]98 % Mayco Velasquez Other [employer] Other 11-10-2021 09:10-0500Systolic blood xanyxsfg739 mm[Hg] Mayco Velasquez Other [employer] Other Encounters Encounter DateEncounter TypeCare ProviderFacilityStart: 01-24-2025 End: 59-03-8791Vwgqzl outpatient visit 25 minutesPaul Eleanor Alcazarlb DO Work Phone: [facility] Surgical AssociatesComment on above:Hiatal hernia (Primary Dx); Esophageal stricture; Esophageal dysphagia; Other chest painStart: 01-24-2025 End: 23-04-1111rgjnlpablkETSL Eleanor ALCAZARYNot AvailableStart: 01-23-2025 End: 79-20-1470lhqwguecjmBmdoz Girvin DO Work Phone: -[facility] BarrowevueStart: 01-23-2025 End: 23-41-5166Zfwonpa encounter procedureDatramaine Velasquez DO-[facility] Work Phone: Start: 01-33-2377Tmw-patient / Non-visitDatramaine Velasquez DO-[facility] Work Phone: Start: 01-09-2025 End: 41-88-2827Olvaloj encounter procedureDatramaine Velasquez DO-Electrodiagnostics Work Phone: Start: 01-09-2025 End: 39-45-7797vxioswycqmJyvpg Girvin DO Work Phone: [phone]-XbhosuhxxdfhyoshetRmhqb: 01-02-2025 End: 85-79-1560Dyndqt outpatient new 30 minutesFredric H Itzkowitz DO Work Phone: [facility] Surgical AssociatesComment on above:Special screening for malignant neoplasms, colon (Primary Dx)Start: 01-02-2025 End: 73-01-9968wrbuphrdryAIUNDFR H ITZKOWITZNot AvailableStart: 12-05-2024 End: 17-29-1656Zigvmhr encounter procedureDatramaine Velasquez DO-[facility] CenterStart: 12-05-2024 End: 15-62-4375eawdjpprczVxzrx Girvin DO Work Phone: [facility] Work Phone: Start: 12-02-2024 End: 76-32-7666rbppvizinjAxtjv Girvin DO Work Phone: [facility] Work Phone: Start: 12-02-2024 End: 72-99-7118Vnvgpsb encounter procedureDatramaine Velasquez DO-[facility] Work Phone: Start: 11-23-2024 End: 19-86-8289Tjszmjl encounter procedureDatramaine Velasquez DO-[facility] [place] Campustart: 11-23-2024 End: 21-42-2753ltustpgzlhShpba Girjessica DO Work Phone: [facility] Work Phone: Start: 16-01-2616Wqc-patient / Non-visitDatramaine Velasquez DO-[facility] Work Phone: Start: 11-21-2024 End: 67-29-9860Saapwgk encounter procedureDatramaine Velasquez DO-[facility] Regionaltart: 11-21-2024 End: 46-76-4811euqfqokyetLsppl Girjessica ANTHONY Work Phone: [facility] Work Phone: Start: 10-19-2024 End: 34-72-1416Dvskfcs encounter procedureREFERRAL SELF-[facility] Work Phone: Start: 10-19-2024 End: 09-30-6982apyvbzrmivAptxw Girjessica DO Work Phone: [facility] Work Phone: Start: 09-21-2024 End: 03-49-2080Aymasu outpatient visit 25 minutesDeb Zamora MD Work Phone: [facility] on above:Essential hypertension (Primary Dx); Mixed hyperlipidemia; Supraventricular tachycardia; Never smoked tobacco; BMI 29.0-29.9,adult; OverweightStart: 09-21-2024 End: 68-07-6963kpoxxxfvufUDTPRE M [facility] AmbulatoryStart: 08-31-2024 End: 87-78-3675Iwfdmxh encounter procedureDatramaine Webster Clotilde DO-[facility] [place] Work Phone: Start: 07-17-2024 End: 32-77-7585Ofbalucuu department patient visitDatramaine Velasquez DO Work Phone: [facility]-Emergency Room Work Phone: Start: 06-08-2024 End: 94-57-5273Pjvjtg follow up visit related to original Leigh GONZALEZ-Eleanor Work Phone: Plastic SurgeryComment on above:Post-operative state (Primary Dx)Start: 06-08-2024 End: 53-72-9873jaybonecjuXGUIAY ALEKSEYENKOFacility:[facility] HospitalStart: 06-01-2024 End: 52-49-9977Kycwgyuom encounterMejia GONZALEZ-Eleanor Work Phone: Plastic SurgeryStart: 06-01-2024 End: 82-62-1785xovxfxkjktVcvwx Clotilde DO Work Phone: [facility] Work Phone: Start: 06-01-2024 End: 05-81-8624Mbvbcab encounter procedureDatramaine Clotilde ANTHONY Work Phone: [facility] Work Phone: Start: 05-20-2024 End: 31-85-6325Zyxvdtfcj Randy Meraz MD Work Phone: plastic SurgeryStart: 05-20-2024 End: 15-57-5191dyfpcdxbtcVLXKKV KAOFacility:[facility] HospitalStart: 05-18-2024 End: 24-69-2983Lzmvneeew to [facility] Oliverio 2 Work Phone: Pre AnesthesiaStart: 05-18-2024 End: 17-65-6345zxfwbmjxjhQCDIAJ KAOFacility:[facility] HospitalStart: 05-18-2024 End: 86-90-3377Kbzloxscbo consultationAdventhealth [facility] 2 Work Phone: Pre AnesthesiaComment on above:Pre-op examination (Primary Dx); Other migraine without status migrainosus, not intractable; Essential hypertension; Hyperlipidemia, unspecified hyperlipidemia type; Paroxysmal SVT (supraventricular tachycardia) (HCC); Gastroesophageal reflux disease without esophagitis; Other iron deficiency anemia; Rheumatoid arthritis, involving unspecified site, unspecified whether rheumatoid factor present (HCC); Obesity (BMI 30.0-34.9)Start: 22-57-9497Rlumgmepx for other preprocedural examinationDAVID ELAINEVINSelect Medical [facility], [facility] ShawStart: 05-18-2024 End: 86-53-1027Jbyhidvqjodjz examination doneAdventhealth Deland 2 Work Phone: [facility] Work Phone: Start: 05-12-2024 End: 60-25-3584Msgwueh encounter procedureDatramaine Velasquez DO Work Phone: [facility]-Lab [facility] [place] Campustart: 05-12-2024 End: 38-51-1915owunhxyuamWweqt Girvin DO Work Phone: [facility] Work Phone: Start: 04-08-2024 End: 10-48-9882Snybjr consultation new/estab patient 61 Meredith John PA-C Work Phone: plastic SurgeryComment on above:Carpal tunnel syndrome, left (Primary Dx)Start: 04-08-2024 End: 54-93-6323nkvbofpdnaZKCGL C GIRVINFacility:[facility] Clinictart: 04-07-2024 End: 66-21-1374Hmnsxcj encounter procedureDatramaine Velasquez DO Work Phone: [facility] Work Phone: Start: 04-07-2024 End: 12-39-4128xqddnzwxunKzxay Girvin DO Work Phone: [facility] Work Phone: Start: 04-05-2024 End: 09-90-6483Sphgzm flowsheetMichael T Cabrera DO Work Phone: [facility] ORTHOStart: 04-05-2024 End: 71-74-9260Zcutjs flowsheetMichael T Cabrera DO Work Phone: [facility] ORTHOStart: 04-05-2024 End: 60-45-8401Lvycalnhi encounterMejia GONZALEZ-C Work Phone: plastic SurgeryComment on above:Order for X-ray Before Appt FriStart: 03-08-2024 End: 78-95-3379Brooszd encounter procedureMichael T Cabrera DO Work Phone: noMS NB ORTHOComment on above:Presence of right artificial knee joint (Primary Dx); Primary osteoarthritis of left kneeStart: 03-08-2024 End: 01-13-8898vdscechzdtUMSHIMD T POWERSNot AvailableStart: 03-01-2024 End: 32-87-4199Sfumdsg encounter procedureDavid Girvin DO Work Phone: [facility] Work Phone: Start: 03-01-2024 End: 94-32-6330ivevtsqdjaHtphn GirvinFacility:[facility] Start: 03-01-2024 End: 04-28-3396Zkkltil encounter procedureDavid Girvin DO Work Phone: [facility] Family [facility] Work Phone: Start: 02-24-2024 End: 39-36-5320F-mail encounter from caregiverSay aBrry PA-C Work Phone: OrthopaedicsStart: 02-24-2024 End: 23-12-4448Bnqtzlf encounter procedureChrisbubba Barry PA-C Work Phone: OrthopaedicsComment on above:New Appointment 03/23/2024 Start: 02-23-2024 End: 56-92-6091hxwxoqfsmeMvvxjt M Zachary DO Work Phone: spine InstituteComment on above:Hand specialistStart: 02-21-2024 End: 57-73-2425agqzesbxidOdiadx M Zachary DO Work Phone: spine InstituteComment on above:HandStart: 01-18-2024 Non-patient / Non-visitDavishantanu Velasquez DO Work Phone: [facility] Work Phone: Start: 12-24-2023 End: 66-86-9005nwmlgzjtefOiaobf M Zachary DO Work Phone: spine InstituteComment on above:EMG of the left hand and cervical x-ray resultsStart: 12-24-2023 End: 53-48-6615A-mail encounter from Delma Andrea DO Work Phone: spine InstituteStart: 82-73-4054kmfjhbtzisIJYPC C GIRVINFacility:[facility] Hospitaltart: 12-22-2023 End: 30-15-7588Htzxrynwyq hospital visit by physicianPavan [facility] Work Phone: [facility] Radiology GeneralComment on above:Carpal tunnel syndrome of left wrist [G56.02]Start: 12-22-2023 End: 15-67-0775nvlsmrnlzuFIWYDX M ZACHARYFacility:[facility] Start: 12-22-2023 End: 03-08-1031Wnoqucj encounter procedureEmg 2 Neur Fhc Rej (Max Weight: 400) Work Phone: NeurologyStart: 12-10-2023 End: 03-84-6970pyknnsxpdiXKOYN C GIRVINFacility:[facility]ictart: 12-10-2023 End: 01-47-7158Tixvmqw encounter procedureSarbjit Andrea DO Work Phone: Spine InstituteComment on above:Lumbar radiculopathy (Primary Dx); Carpal tunnel syndrome of left wrist; Left hand weakness; Disturbance of skin sensationStart: 12-03-2023 End: 94-47-1518Fzictqqvk encounterPhillrenuka Waggoner DO Work Phone: spine InstituteStart: 12-03-2023 End: 60-38-3698npxpilhlceFZ David Girvin Work Phone: [facility] Work Phone: Start: 12-03-2023 End: 55-63-4233Iguiqzd encounter procedureDO Mayco Velasquez Work Phone: [facility] Work Phone: Start: 11-27-2023 End: 99-98-6429EotuhqRhjihpar Tsai MD Work Phone: Internal MedicineComment on above:Refill RequestStart: 11-25-2023 End: 55-21-5663cwgtlabuusNMPSO C GIRVINFacility:[facility] Clinictart: 11-25-2023 End: 78-07-3556Xxfbyfc encounter procedureSpine Med Procedure Main Work Phone: spine InstituteComment on above:Radiculopathy, lumbar region (Primary Dx)Start: 11-23-2023 End: 16-33-6243sdhrqympkpVE David Girvin Work Phone: [facility] Work Phone: Start: 11-23-2023 End: 49-55-5507Pirwjrf encounter procedureDO Mayco Velasquez Work Phone: [facility] Regionaltart: 11-17-2023 End: 75-95-7818Midxzarlh encounterPhillrenuka Waggoner DO Work Phone: Spvgh InstituteComment on above:Preparations For Procedures (Pre injection instructions)Start: 11-05-2023 End: 90-26-9628Rnezvmu encounter procedureAdrian M Johan DO Work Phone: Spine InstituteComment on above:Radiculopathy, lumbar region (Primary Dx); Spondylolisthesis of lumbar regionStart: 11-05-2023 End: 96-66-7884wccxskmtwlQBSKB C GIRVINFacility:[facility] Clinictart: 11-05-2023 End: 94-69-9228Ezsnynjizg hospital [facility]Kind[facility] Work Phone: RadiologyComment on above:Other spondylosis with radiculopathy, 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]Start: 11-03-2023 End: 15-76-7654Segzrv outpatient visit 25 minutesAlyssa Whelan NP Work Phone: [facility] NE NEUROComment on above:Restless legs (Primary Dx); Paresthesia of skin; Anesthesia of skin; Chronic left-sided low back pain with left-sided sciaticaStart: 93-88-7324Ojgxdf Belinda Weaver MD Work Phone: Internal MedicineComment on above:Refill RequestStart: 10-20-2023 End: 92-72-4605phjlitclecHB David Girvin Work Phone: [facility] Work Phone: Start: 10-20-2023 End: 27-29-0657Eydesss encounter procedureDO Mayco Velasquez Work Phone: [facility] Family [facility] Work Phone: Start: 10-19-2023 End: 58-99-0077cezgasgsgvLS Mayco Velasquez Work Phone: [facility] Work Phone: Start: 10-19-2023 End: 84-74-5716Qfaprxx encounter procedureDO Mayco Velasquez Work Phone: [facility] Work Phone: Start: 10-05-2023 End: 08-83-2654ceviqiwvtzES David Girvin Work Phone: [facility] Work Phone: Start: 10-05-2023 End: 26-41-6225Mepsmsz encounter procedureDO Mayco Velasquez Work Phone: [facility]-Lab [facility] [place] Campustart: 09-22-2023 End: 94-75-8186Lrynad outpatient visit 25 minutesDeb Zamora MD Work Phone: [facility] HospitalComment on above:Essential hypertension (Primary Dx); Supraventricular tachycardia (CMS-HCC); Mixed hyperlipidemia; BMI 35.0-35.9,adult; Never smoked tobacco; Bilateral lower extremity edema; Rheumatoid arthritis, involving unspecified site, unspecified whether rheumatoid factor present (Multi)Start: 08-20-2023 End: 44-77-4511pqnyrjuoaqWN David Girvin Work Phone: [facility] Work Phone: Start: 08-20-2023 End: 16-95-2918Mxbnspg encounter procedureDO Mayco Velasquez Work Phone: [facility] [place] Work Phone: Start: 39-43-5449Npkfgzekz encounterBelinda Weaver MD Work Phone: Internal MedicineComment on above:Medication Question Start: 08-17-2023 End: 73-06-4298grqtrgiznaALYYNO S PERHALAFacility:[facility] Start: 08-17-2023 End: 69-96-7968Cbkdenl encounter procedureBelinda Weaver MD Work Phone: RheumatologyComment on above:Primary osteoarthritis involving multiple joints (Primary Dx); Lumbar degenerative disc disease; Long-term use of PlaquenilStart: 31-56-2312gipchtvegnMUVFDS S MEG Facility:[facility]art: 06-12-2023 End: 88-07-7577Ixtirxj encounter procedureDO Mayco Velasquez Work Phone: [facility]-Lab [facility] [place] Campustart: 06-01-2023 End: 24-08-6654jndbohmvqsFB Mayco Velasquez Work Phone: [facility] Work Phone: Start: 06-01-2023 End: 11-06-4425Iiwjiqj encounter procedureDO Mayco Velasquez Work Phone: [facility]-Lab [facility] [place] Campustart: 93-68-2818Vnt-patient / Non-visitDO Mayco Velasquez Work Phone: [facility] Professional [employer] Work Phone: Start: 05-25-2023 End: 08-90-6621Glulapx encounter procedureDO Mayco Velasquez Work Phone: [facility]-Lab [facility] [place] Campustart: 05-15-2023 End: 18-13-5127Gaxgrbo encounter procedureDO Mayco Velasquez Work Phone: [facility]-Lab [facility] [place] Campustart: 05-13-2023 End: 46-56-4893Svobydv encounter procedureDO Mayco Velasquez Work Phone: [facility] Family [facility] Work Phone: Start: 04-27-2023 End: 73-56-0463ldnlhycyezFfkmf Girvin Other [facility] [employer] Other Start: 64-03-6013Ubcspxhnl encounterDatramaine Oquendo [facility] BellevueStart: 04-16-2023 End: 51-35-3843dilhcchrqxYjefb Girvin Other [facility] [employer] Other Start: 95-93-3961Kupqnbbvs encounterDatramaine Oquendo [facility] BellevueStart: 03-10-2023 End: 30-13-7223anzdrpqzctDqawc Girjessica Other [employer] Other start: 64-65-6366Tccskhoaz encounterDavid ClotildeFPG [facility] BellevueStart: 02-12-2023 End: 15-65-3207kivsdqyrslCwjyi Girvin Other [employer] Other start: 64-59-5721Zrpmxscfd by computer linkDavishantanu VelasquezFPG [facility]vueStart: 02-03-2023 End: 02-56-1764ncqhfmrdkmRjkte Girjessica Other [employer] Other Start: 51-21-8314Loqdrzbpu encounterDavid ClotildeFPG [facility]vueStart: 01-01-2023 End: 07-33-6716bzgsyxywuxVkfrz Clotilde Other [employer] Other Start: 55-97-3837Sibchy outpatient visit 15 minutes Mayco Oquendo [facility] BellevueStart: 12-30-2022 End: 23-83-1194lvwaosixzuHjkyk Clotilde Other [employer] Other Start: 23-08-4186Xsrpzqvhq encounterDavid ClotildeFPG [facility]vueStart: 11-26-2022 End: 87-04-9584yckwnyrigzOlohu Girvin Other [employer] Other start: 21-73-5922Btqezjpdv encounterDavid ClotildeFPG [facility]vueStart: 11-05-2022 End: 43-35-4887znhlfygdfcXdagt Girvin Other [employer] Other start: 75-34-7727Xvbmxk outpatient visit 25 minutes Mayco Oquendo [facility] BellevueStart: 10-22-2022 End: 37-92-1875skudujpldsNyhci C GirvinFacility:FTMCStart: 10-22-2022 End: 47-55-4669Fxsuqsi encounter procedureMayco Velasquez [facility] Start: 10-17-2022 End: 69-74-4600mspiteartpNM David Girvin Work Phone: [facility] Work Phone: Start: 10-17-2022 End: 32-29-4010Yaaarhp encounter procedureDO Mayco Velasquez Work Phone: [facility] Work Phone: Start: 10-13-2022 End: 18-57-7863wsotehivvgTeumm Girvin Other [employer] Other Start: 37-07-0622Wrjsbezqt encounterDatramaine Oquendo [facility] SindhuevueStart: 26-06-0388Gcoibp outpatient visit 25 minutesDatramaine Velasquez Work Phone: [phone]-LkvkaRegions Hospital 600 DO Work Phone: Start: 49-57-6705socugeruszBnulatoryDr. Deb Zamora Facility:[id number]: 09-12-2022 End: 85-83-4138zkxdeuszlpHetmo Girvin Other [employer] Other Start: 68-93-2141Xayqbjxer encounterDatramaine Oquendo [facility] SindhuevueStart: 07-10-2022 End: 20-04-3147aqwbmikyjdDimzr Girvin Other [employer] Other Start: 50-25-2967Pdaafbipq encounterDavid GirvinFPG [facility]vueStart: 06-13-2022 End: 11-01-1420bayqjxvbvtWwfxn Girvin Other [employer] Other Start: 12-49-9099Oopbqftot encounterDavid ClotildeFPG [facility] [place]vueStart: 05-06-2022 End: 58-66-7170jgdwonfqnoVcefl Girvin Other [facility] [employer] Other Start: 20-22-7965Mnmvwffom encounterDavishantanu VelasquezFP[facility] [place]vueStart: 04-30-2022 End: 97-25-4825mhsjupoagwCN David Girvin Work Phone: [facility] Work Phone: Start: 04-30-2022 End: 51-47-9864Eqmymnh encounter procedureDO Mayco Velasquez Work Phone: [facility]-Lab [facility] Campustart: 04-28-2022 End: 32-73-9241cmodvridgdJjamt Girvin Other [facility] [employer] Other Start: 84-98-8849Wgwjkrdtp encounterDatramaine ConradG [facility] [place]vueStart: 03-25-2022 End: 70-49-5392zymbsranpqKafie Girvin Other [facility] [employer] Other Start: 49-53-1273Risklbzyf encounterDavid ClotildeFP[facility] [place]vueStart: 02-28-2022 End: 35-39-0134gzobqpvvmkQhbnz Girvin Other [employer] Other Start: 04-33-9371Iydcxddmo encounterDavid ClotildeFPG [facility] [place]vueStart: 02-12-2022 End: 85-38-8528nbaylusxvcVjspt Girvin Other [facility] [employer] Other Start: 51-16-5622Qdrfybxrz encounterDatramaine Oquendo [facility] [place]vueStart: 02-02-2022 End: 31-65-1822nzjkychnamIfyan Clotilde Other [facility] [employer] Other Start: 16-41-1857Trzhvkdgr by computer linkMayco Oquendo [facility] BellevueStart: 40-89-2797Iwuvpkszw encounterDavishantanu Oquendo [facility] [place]vueStart: 01-29-2022 End: 38-53-4144eprifrutxsTALHHY Carlos [facility] [employer] Other Start: 01-29-2022 End: 04-47-5221Hctwczh encounter procedureDatramaine Velasquez [facility] Start: 01-20-2022 End: 18-28-1688xchdtxpxcfHadwg Girvin Other [facility] [employer] Other Start: 42-19-2581Sqmvzm outpatient visit 15 minutes Mayco Oquendo [facility] [place]vueStart: 10-31-2021 End: 48-99-2062xakpgggvrkSbqtq Girvin Other [facility] [employer] Other Start: 68-45-2718Ksbodzugp by computer linkMayco Oquendo [facility] [place]vueStart: 34-01-4546Navmnw outpatient visit 25 minutesDatramaine Oquendo [facility] [place]vueStart: 10-25-2021 End: 24-73-4984xxjlsjtbxkWtqjl C GirvinFacility:FTMCStart: 10-25-2021 End: 31-28-6344Njnxqzz encounter procedureDatramaine Velasquez [facility] Start: 10-16-2021 End: 92-10-9624Qwvijbj encounter Henry Velasquez Work Phone: [facility] Start: 92-02-5464Uzsdjd outpatient visit 25 minutesDavishantanu Velasquez Work Phone: [phone]-Wtvec [facility] 600 DO Work Phone: Start: 09-12-2021 End: 96-15-8914Tntdfvn encounter procedureSade ANDRADE 660-6601Tuluqs-SqlwlR[facility] Start: 08-07-2021 End: 20-74-3289whwuhkgmpeCnpqn Girvin Other [employer] Other Start: 65-50-7139Gmptylpej encounterDatramaine Oquendo [facility] [place]vueStart: 07-30-2021 End: 15-56-7678Bmjxxsv encounter procedureHEATHERRICO CARLOSVERONICA [facility] Start: 07-18-2021 End: 26-31-8754sgbtggzhgbVtafc Girvin Other [employer] Other Start: 13-72-5289Spdfihxry encounterDavishantanu Oquendo [facility] [place]vueStart: 05-17-2021 End: 03-97-0101bqylhsokhdDtpet Girvin Other [employer]Mural[employer] Other Start: 67-38-3154Mdfioxcum encounterDavishantanu Oquendo [facility] BellevueStart: 05-10-2021 End: 62-55-2320oytfmhbivkSwcet Girvin Other [employer] Other Start: 94-46-4347Qsqvvk outpatient visit 25 minutes [facility]Start: 04-01-2021 End: 24-93-5904wiahbtvsqrLohee Girvin Other [employer] Other Start: 83-46-8524Eczzuojcb by computer linkMayco Oquendo Family Medicine BellevueStart: 03-25-2021 End: 38-23-5323txplolphhrCzrpx Girvin Other [employer] Other Start: 88-71-5969Xaizkkdfz encounterDatramaine Oquendo [facility]ueStart: 03-18-2021 End: 41-69-9612ygijcihbtuTrmxy Girvin Other [facility] [employer] Other Start: 21-90-6443Wljhvzliz encounterDavishantanu Oquendo [facility]ueStart: 03-13-2021 End: 71-99-4948axmhlfbwyrQlupl Girvin Other [employer] Other Start: 74-62-4185Qunwfrkeo encounterDavishantanu Oquendo [facility]ueStart: 01-23-2021 End: 88-10-5706sgrjucsbtfXwzvz Girvin Other [employer] Other Start: 75-17-1060Yfmcgm outpatient visit 15 minutes [facility] 09-[facility]2018 End: 78-49-9144Bjrltlt encounter procedureMICUNITED STATES AIR FORCE LU[facility] B[facility] 56[facility] MED[facility] CLINICEhsan Stevens Clinic Hospitaltart: 09-29-2018 End: 77-65-0446Flfhdno encounter procedureMICBaptist Memorial Hospital Procedures DateProcedureProcedure DetailPerforming ClinicianStart: 86-02-4396Oobiz culture Mayco Velasquez DO Work Phone: Start: 63-80-0524Yfidyxqo identified in Blood by Roseline Velasquez DO Work Phone: Start: 05-62-5637Wmgjb Roseline Velasquez DO Work Phone: Start: 66-10-2671Lfqefmvii mammography of bilateral breastsDavid Clotilde DO Work Phone: Start: 12-15-7392Xtam energy X-ray absorptiometryDavishantanu Velasquez DO Work Phone: Start: 29-34-8918Nmejhxyrwr examination knee 3 views Vaibhav Cabrera DO Work Phone: Start: 31-12-0834Wdvcfibaqm examination knee 3 views Vaibhav Cabrera DO Work Phone: Start: 85-44-0059B-ray of left knee, four viewsDatramaine Velasquez DO Work Phone: Start: 03-31-6151Ilrjp spine cervical 4 or 5 views Sarbjit Andrea DO Work Phone: Start: 87-49-5150Ucysm Lester Velasquez Work Phone: Start: 21-84-2944Mvucn spine lumbosacral minimum 4 viewsRachel S Shane 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 OPERATIONS ENGINEER.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 Work Phone: Start: 15-51-4716Giqorxnog mammography of bilateral breastsDO Mayco Velasquez Work Phone: Start: 76-92-0200[place]uk Lester Velasquez Work Phone: Start: 60-53-8766Dlori Lester Velasquez Work Phone: Start: 99-15-9993Owkbv ChristinaO Mayco Velasquez Work Phone: Start: 54-81-5787Hyjpi Lester Velasquez Work Phone: Start: 91-46-6639Hxfuqwjip mammography of bilateral breastsDO Mayco Velasquez Work Phone: Start: 09-71-1667Gawrlvfzv mammography of bilateral breastsDO Mayco Clotilde Work Phone: Start: 67-95-4735Xptdjkkddcvo of kneeROBERT ESTHELA Comment on above:RIGHT TOTAL KNEE ARTHROPLASTYStart: 12-63-7083Cdgtelptty examination knee 3 viewsMICHAEL POWERSStart: 07-05-2018 Laparoscopic cholecystectomy with cholangiographyROBERT HALMIREYAY Start: 93-24-3206dhzfq shoulder arthroscopyROBERT HALADAY Arthroplasty of kneeDavid C Clotilde Work Phone: CholecystectomyDavid C Clotilde Work Phone: ColonoscopyROBERT HALMIREYAY EsophagogastroduodenoscopyROBERT CRISTALY Hammer toe operationDavid C Clotilde Work Phone: History of decompression of median nerveHistory of carpal tunnel surgery of right wristDavid Girjessica DO Work Phone: HysterectomyROBERT HALADAY HysterectomyDavid C Clotilde Work Phone: Osteotomy of phalanx of lesser toeROBERT HALADAY Comment on above:right 2nd toeRepair of shoulderDavid C Girvin Work Phone: TonsillectomyROBERT HALADAY Total colonoscopyDavid C Clotilde Work Phone: wisdom teeth removedROBERT HALADAY Plan of Treatment DateCare ActivityDetailAuthorStart: 69-48-3625Wjbnefmy ScreeningDiabetes ScreeningCletrihealth ClinicStart: 09-20-2025 End: 73-51-6122Bodtkrt encounter jrjsvnulu64/08/2026 8:40 AM EDT Office Visit [place] [address] [place] [address] Deb Zamora MD [address] [facility], [address] [place] [address] [facility]Start: 01-24[facility]2025 End: 99-33-3952TH Gastrointestinal tract upper Views W contrast POFL upper GI wo KUB Imaging Routine Hiatal hernia Esophageal stricture Esophageal dysphagia Expected: 01/24/2025, Expires: 01/24/2026NONV [email or web address] Work Phone: Comment on above:Expected: 01/24/2025, Expires: 01/24/2026Start: 01-02-2025 End: 59-58-3635Euyihjcmbsm colorectal cancer DNA and occult blood screening [Presence] in StoolCologuard colon cancer screening Lab Routine Special screening for malignant neoplasms, colon Expected: 01/02/2025 (Approximate), Expires: 01/02/2026[facility] [email or web address] Work Phone: Comment on above:Expected: 01/02/2025 (Approximate), Expires: 01/02/2026Start: 28-95-3681Ffaqlrgk identified in Urine by CultureUrine [facility]ontart: 05-10-6989Glfpj [facility]tart: 03-66-1217Pnukgxlb identified in Blood by Culture Blood [facility] Cantontart: 54-94-2093Mvxhuew referral [facility] Work Phone: Start: 11-23-2024 End: 24-24-3746OjscnibccUniversity Hospitals Health Systemtart: 61-25-4947Zbccutqb identified in Urine by CultureUrine [facility] Start: 40-65-7496Dtcnmskiz vaccinationInfluenza Vaccine (#1)[facility] CenterStart: 81-14-9322HU of head without contrastCT head/brain wo con [facility] Systemtart: 61-40-9854NO Unspecified body region WO contrastUniversity Hospitals Health Systemtart: 86-02-9135Mtnrx chest X-rayXR chest 1V portableThe Metrohealth System CenterStart: 89-56-1067YY Chest Single viewUniversity Hospitals Health Systemtart: 06-08-2024 End: 99-52-5467Tlbzdqj encounter ccvklyjgx13/26/2025 2:30 PM EDT Office Visit Plastic Surgery [address] [place] [address] Mejia John PA-C [address] [place] [address] Post opPlastic SurgeryComment on above:Post opStart: 06-03-2024 End: 09-18-4213Jsfbsnx encounter xrzfsoszo29/21/2025 10:30 AM EDT Office Visit Plastic Surgery [address] [place] [address] Mejia John PA-C [address] [place] [address] Post opPlastic SurgeryComment on above:Post opStart: 05-20-2024 End: 23-51-9324Fleaemojb to same day surgery gvhhna5905/20/2024 7:30 AM EST - 05/20/2024 8:33 AM EST Surgery [facility] [address] [place] [id number] Mejia Meraz MD [address] [place] [address] ENDOSCOPIC RELEASE TUNNEL [facility] Surgery - ASCEComment on above: ENDOSCOPIC RELEASE TUNNEL CARPALStart: 05-20-2024 End: 16-91-1391Ijfa wrst surg w/rls transvrs carpl ligmMM ASCStart: 05-20-2024 Subsequent hospital visit by hloztnuzr14/07/2025 7:30 AM EST Hospital Encounter [facility] [address] [place] [address] Mejia Meraz MD [address] [place] [address] Carpal tunnel syndrome, left [G56.02][facility] Surgery - ASCEComment on above:Carpal tunnel syndrome, left [G56.02]Start: 11-53-6100Kvieelwdql hospital visit by lgtdjfpto13/02/2025 Hospital Encounter Surgery Center [address] [address] Mejia Meraz MD [address] [place] [address] Carpal tunnel syndrome, left [G56.02]Surgery Center Comment on above:Carpal tunnel syndrome, left [G56.02]Start: 04-18-2024 End: 61-64-5028Idesotc encounter procedureNOMS NE NEUROStart: 04-08-2024 End: 45-30-5591Nsnehjg encounter qrwppakiw70/24/2025 11:00 AM EST Office Visit Plastic Surgery [address] [place] [address] Mejia John PA-C [address] [place] [address] Carpal tunnel syndrome, unspecified laterality [G56.00]Plastic SurgeryComment on above:Carpal tunnel syndrome, unspecified laterality [G56.00]Start: 04-05-2024 End: 55-77-1865Mobcfwb encounter procedureNOMS NB ORTHOComment on above:Primary osteoarthritis of left knee (Primary Dx)Start: 03-23-2024 End: 80-99-2584Vccowfj encounter procedureRadiologyComment on above:Bilateral hand and wrist painBilateal hand pain carpal tunnelStart: 77-74-3723Pozedou Directive DiscussionAdvance Directive DiscussionCletrihealth ClinicStart: 02-02-2024 End: 39-45-6412Cfcqcm-up /19/2024 10:00 AM EST [place] [facility]ology [address] [address] [place] [address] [place] [address] Follow up, requesting virtual visitRheumatologyComment on above:Follow up, requesting virtual visitStart: 12-22-2023 End: 65-84-8180Icytiag encounter mioactwev93/08/2024 8:15 AM EDT Procedure Neurology [address] [place] [address] L UENeurology Comment on above:L UEStart: 12-10-2023 End: 49-05-0666Fevlulr encounter grvgyeiuo58/26/2024 9:40 AM EDT Office Visit [facility] [place] [address] [place] [address] [place] [address] [place] [address] follow upSpine InstituteComment on above:follow up Start: 11-25-2023 End: 31-20-0783Oafrhbt encounter ssmnsggta23/11/2024 1:30 PM EDT Office Visit [facility] [place] [address] [place] [id number] Injection Type:Spine InstituteComment on above:Injection Type:Start: 94-98-9235Bfuszpkb identified in Urine by CultureUniversity Hospitals Health Systemtart: 11-15-2023 Covid-19 Vaccine ( season)Covid-19 Vaccine ( season) [facility]: 64-74-6765Ouqwo-19 Vaccine ( season)Covid-19 Vaccine ( season)[facility] Hospitaltart: 96-16-4150Ewlpeqsng vaccinationOhio State Harding Hospitaltart: 10-06-2023 End: 17-47-2506Xxaco metabolic 2000 panel - Serum or PlasmaBasic Metabolic Panel Lab Routine Essential hypertension Expected: 10/06/2023 (Approximate), Expires: 09/21/2024[facility] Service Area Work Phone: Comment on above:Expected: 10/06/2023 (Approximate), Expires: 09/21/2024Start: 61-97-1749SAO, Provider: Deb Zamora, Status: Pen, Time: 9:00 AMFUV, Provider: Deb Zamora, Status: Pen, Time: 9:00 AM-[facility] 600 DO Work Phone: Start: 16-05-3128Iykcmltx identified in Urine by CultureUrine CultureUniversity Hospitals Health Systemtart: 60-87-6752Yhprdjq Directive DiscussionAdvance Directive DiscussionOhio State Harding Hospitaltart: 34-71-4222Nnufdobqiv Health ScreeningBehavioral Health ScreeningNorwalk Memorial Hospital Start: 12-02-2194Zxqej-19 Vaccine ( season)Covid-19 Vaccine ( season)[facility] Hospitaltart: 69-87-2982HNP, Provider: Deb Zamora, Status: Pen, Time: 8:30 AMFUV, Provider: Deb Zamora, Status: Pen, Time: 8:30 AMMP-[facility] 600 DO Work Phone: Start: 19-27-2621Lcbrsmxg identified in Urine by CultureUniversity Hospitals Health Systemtart: 29-08-0048NfkdtbaojUniversity Hospitals Health Systemtart: 82-38-1575HJzN/Tdap/Td Vaccines (2 - Td or Tdap) DTaP/Tdap/Td Vaccines (2 - Td or Tdap)[facility]: 15-95-0740Zugss microalbumin profileDTaP,Tdap,Td Vaccine (2 - Td or Tdap) [facility]: 25-28-4887PVL High Risk: (Elderly (60+) or Population) (1 - 1-dose 75+ series)RSV High Risk: (Elderly (60+) or Population) (1 - 1-dose 75+ series)[facility]: 81-02-5304MDU Vaccine (1 - 1-dose 75+ series)RSV Vaccine (1 - 1-dose 75+ series) [facility]: 64-29-2979Ydaxobvp Vaccine (3 of 3)Shingrix Vaccine (3 of 3)[facility]: 07-28-6128Gfyiyr Vaccines (3 of 3)Zoster Vaccines (3 of 3)[facility]: 34-86-0195Lnebtqmat for osteoporosisBone Density ScreeningOhio State Harding Hospitaltart: 93-61-2500Rtjdtsjvq B Vaccines (1 of 3 - Risk 3-dose series)Hepatitis B Vaccines (1 of 3 - Risk 3-dose series)[facility]: 92-26-1258RMF patients and/or patients aged 60+ years (1 - 1-dose 60+ series)RSV patients and/or patients aged 60+ years (1 - 1-dose 60+ series)[facility]: 86-78-6702GND Vaccine (1 - 1-dose 60+ series)RSV Vaccine (1 - 1- dose 60+ series)[facility]: 41-18-5284Cppnagml ScreeningDiabetes ScreeningGrand Lake Joint Township District Memorial Hospitalrt: 37-76-0086Rwhbxy PCP Team Chronic Disease Visit Annual PCP Team Chronic Disease VisitOhio State Harding Hospitaltart: 95-56-0268Btajqdx ScreeningAnxiety ScreeningGrand Lake Joint Township District Memorial Hospitalrt: 48-27-1778ZD Controlled (<130/80)BP Controlled (<130/80)[facility] Hospitalrt: 82-18-0410Ikrlqdopmo ScreeningDepression ScreeningGrand Lake Joint Township District Memorial Hospitalrt: 11-76-7154Whgkkiol mellitus screeningDiabetes ScreeningUnUC [facility]: 01-26-1963 Hepatitis C screeningHepatitis C ScreeningOhio State Harding Hospitaltart: 80-34-8993Ayvff panelLipid PanelUnUC [facility]: 1946Medicare Annual Wellness VisitMedicare Annual Wellness Visit (AWV)[facility]: 19-99-5812Vhmxscqjj for osteoporosisBone Density ScanUnMetroHealth Main Campus Medical CenterBacteria identified in Urine by CultureCleveland Clinic FoundationComprehenve metabolic 1999 panel - Serum or PlasmaCleveland Clinic FoundationComprehensive metabolic 1999 panel - Serum or Plasma [facility] FoundationComprehensive metabolic 1999 panel - Serum or PlasmaCleveland Clinic FoundationComprehencritical access hospital metabolic 2000 panel - Serum or [facility] End: 96-26-4732GGD(NEURO/NI)EMG(NEURO/NI) EMG Routine Disturbance of skin sensation 1 Occurrences starting 12/10/2023 until 12/09/2024[facility] Comment on above:1 Occurrences starting 12/10/2023 until 12/09/2024Glucose measurement estimated from glycated [facility] Glucose measurement estimated from glycated [facility] HospitalHemoglobin A1c/Hemoglobin.total in [facility] Hemoglobin A1c/Hemoglobin.total in [facility] HospitalInsulin [Units/volume] in Serum or [facility] HospitalInsulin [Units/volume] in Serum or [facility] HospitalInsulin [Units/volume] in Serum or [facility] HospitalInsulin [Units/volume] in [facility] or [facility] HospitalInsulin [Units/volume] in [facility] or [facility] HospitalMR Lumbar spine WO contrastCleveland Clinic FoundationNdsc wrst surg w/rls transvrs carpl ligmENDOSCOPIC RELEASE TUNNEL CARPAL Carpal tunnel syndrome, [facility] PLASTICS X22Doegruu EducationAnxiety in adults - ED discharge instructions [facility] Work Phone: Patient referralThe [facility] Work Phone: SPINE INTERVENTION PROCEDURESPINE INTERVENTION PROCEDURE Procedures Routine Radiculopathy, lumbar region Spondylolisthesis of lumbar region Ordered: 4CPomerene Hospital Alektrona Work Phone: Comment on above:Ordered: 11/05/2023Urine culture [facility] Clinic FoundationUrine [facility] Urine [facility] End: 25-50-1218VN Cervical spine AP and Lateral and obliqueXR CERV OTHER 4V AP/LAT/OBL Radiology Routine Carpal tunnel syndrome of left wrist Left hand weakness 1 Occurrences starting 12/10/2023 until 01/08/2025[facility] Work Phone: Comment on above:1 Occurrences starting 12/10/2023 until 01/08/2025XR Knee - left 3 ViewsXR knee 3 views left Imaging Routine Primary osteoarthritis of left knee 03/08/2024 7:56 AM ESTNOWrapp Work Phone: XR Knee - right 3 ViewsXR knee 3 views right Imaging Routine Presence of right artificial knee joint 03/08/2024 7:57 AM [facility] Immunizations Immunization DateImmunizationNotesCare OtnllixuSererxqw26-88-1245suisdsnhv virus vaccine, unspecified formulationDO Mayco Girvin Work Phone: [facility]10-28-2020influenza, seasonal, injectableDavid Girvin Other [facility]10-28-2020influenza, high dose seasonal, preservative-freeDavid Girvin Other [place] [employer] Other 10992790-60-8154sovolvlgo, high dose seasonal, preservative-freeDavid C Girvin Work Phone: [phone]-HjmzpRegions Hospital 600 DO Work Phone: [phone], high dose seasonal, preservative-freeDavid C Girvin Work Phone: [facility]10-01-2019zoster vaccine, liveDavid C Girvin Work Phone: [phone]-JdvuyRegions Hospital 600 DO Work Phone: [phone], high dose seasonal, preservative-freeDavid C Girvin Work Phone: [phone]-HmayuRegions Hospital 600 DO Work Phone: [phone], seasonal, injectableDavid Girvin Other [facility]09-26-2019zoster vaccine recombinantDavid Girvin Other [facility]09-17-2018influenza, high dose seasonal, preservative-freeDavid C Girvin Work Phone: GE-KcaejRegions Hospital 600 DO Work Phone: [phone], seasonal, injectableDavid Girvin Other [address] [place], [place] [address]21[address]09-01-2018influenza virus vaccine, unspecified formulationDavid C Girvin Work Phone: [address] [place] [address] 600 DO Work Phone: [phone], injectable, quadrivalent, preservative freeDavid C Girvin Work Phone: PI-Xxtcv[address] [place] [address] 600 DO Work Phone: [phone], high dose seasonal, preservative-freeDavid C Girvin Work Phone: ND-Hlkod[address] [place] [address] 600 DO Work Phone: [phone], seasonal, injectableDavid Girvin Other [address] [place], [place] 0610509-01-2017influenza virus vaccine, unspecified formulationDavid C Girvin Work Phone: LE-Nxxol[address] [place] [address] DO Work Phone: [phone] conjugate vaccine, 13 valent Mayco C Girvin Work Phone: ZJ-Qtbnk[address] [place] [address] 600 DO Work Phone: [phone], seasonal, injectableDavid Girvin Other [address] [place], [place] 721[address]10-01-2016influenza virus vaccine, unspecified formulationDavid C Girvin Work Phone: XU-Oolwq[address] [place] [address] 600 DO Work Phone: [phone]yssyo polysaccharide vaccine, 23 valentDavid C Girvin Work Phone: WQ-AyvtvRegions Hospital 600 DO Work Phone: [phone]cpcty polysaccharide vaccine, 23 valentDavid C Girjessica Work Phone: XQ-FuotkRegions Hospital 600 DO Work Phone: [phone], seasonal, injectableDavid C Clotilde Work Phone: RL-DeavmRegions Hospital 600 DO Work Phone: [phone] A vaccine, adult dosageDavid C Girjessica Work Phone: [address] [address] DO Work Phone: [phone] A vaccine, adult dosageDavid C Girjessica Work Phone: VY[address]sm[place] [address] DO Work Phone: [phone] toxoid, reduced diphtheria toxoid, and acellular pertussis vaccine, adsorbedDavid C Clotilde Work Phone: IY[place]ufqs[place] [address] DO Work Phone: [phone]qv capsular polysaccharide vaccine Mayco C Clotilde Work Phone: EQ-OzvcgE[place] [address] DO Work Phone: [phone] polysaccharide vaccine, 23 valentDavid C Girjessica Work Phone: JW-ZsixsRegions Hospital 600 DO Work Phone: [phone] vaccine, liveDavid C Girjessica Work Phone: DC-InvqgRegions Hospital 600 DO Work Phone: NEGATED: Highlighted row has not occurred!01-23-2021 influenza, seasonal, injectablePatient ObjectionDavishantanu Henryjessica Other [employer] Other Payers DatePayer CategoryPayerPolicy [id number] [id number] 2022MedicaidAETNA MEDICARE ADVANTAGE [id number] 2022Medicare [id number] 2022Medicare (Managed Care) [id number] [id number] [id number] [id number] 2..1.079125.3.57[id number] 2..1.195308.3.57[id number] 2..1.542792.3.57[id number] 2..1.713448.3.57[id number] 2.0.1.441943.3.57[id number] 2.16.840.1.696867.3.57[id number] 2.16.840.1.244076.3.57[id number] 2.16.840.1.879153.3.579.[id number] 2.16.840.1.404551.3.57[id number] 2.16.840.1.002605.3.57[id number] 2.16.840.1.297136.3.57[id number] 2.16.840.1.556767.3.579.[id number] 2.16.840.1.7[id number] 2.16.840.1.426397.3.579.2.531 [id number] 2.16.840.1.07[id number] 2.16.840.1.83[id number] 2.16.840.1.187011.3.579.2.531 [id number] 2.16.840.1.902080.3.579.2.531 Social History DateTypeDetailFacilityTobaccoUnknown if ever smokedNoMural.ly Other Comment on above:deniesStart: 11-05-2023 End: 28-06-1871Rtr Assigned At BirthFemalAmerican [employer] Other Start: 11-05-2023 End: 11-82-4100Sijay smokerNever smokerMP-[facility] 600 DO Work Phone: Start: 01-04-2019 End: 84-16-2550Egymffd smoking status NHISNever smoked tobacco (finding) [facility] Systemtart: 59-29-3171Jhb Assigned At BirthFemale [facility] FoundationTobawillow [facility] smoking statusNo Smoking Status Entered [facility] SystemTobawillow [facility] smoking status NHISTobacco smoking consumption unknownOhio State Harding Hospitaltart: 17-09-0635Xxr Assigned At BirthNot on fileOhio State Harding Hospitaltart: 80-24-8628Ssrmgs identityIdentifies as female gender (finding)[facility]tart: 10-69-7187Xmpedh orientationHeterosexual (finding)[facility] Hospitaltart: 01-28-2023 End: 67-89-3299Tkqyevy use and exposureSmokeless tobacco non-userNOMS Healthcare Start: 86-28-3565Edeliqsl Score (1-100), lower number is lower qaws31QTBD HealthcareStart: 38-38-1292Fylniedxt beverage intakeLifetime non-drinker (finding)[facility] Work Phone: Start: 09-12-2023 End: 49-78-0715Cimdgsyv to SARS-CoV-2 (event)Not sureMetroHealth Main Campus Medical CenterStart: 07-07-2023 End: 95-36-8158Prixzcjyj beverage intakeCurrent drinker of alcohol (finding)[facility] HealthcareStart: 97-67-7140Llugpxc Commentcaffeine intake : noneNOMS Healthcare Start: 62-06-4872Gujqnx orientationBisexual (finding)[facility] HealthcareStart: 04-08-2024 End: 45-68-1586NlkDwdcjb (finding)[facility] Systemtart: 92-89-7909Aampmqv Commenta few times a week a shot of red hot wisky [facility] Hospitaltart: 23-79-6499Vgyhkwm CommentrarelyUnMetroHealth Main Campus Medical Center Work Phone: Medical Equipment Procedure CodeEquipment CodeEquipment Original TextEquipment IdentifierDates Hammer toe correctionK-WIRE .[address] 4INFDAStart: 27-43-7801Xmdoiv toe correctionK-WIRE .[address] 4INFDAStart: 00-16-4782Yrkxnq toe correctionK-WIRE .[address] 4INFDAStart: 39-06-6169Ijshdm toe correctionK-WIRE .[address] 4INFDAStart: 40-43-4719Rurjql toe correctionK-WIRE .[address] 4INFDAStart: 67-96-9296Elbgzr toe correctionK-WIRE .[address] 4INFDAStart: 32-41-1794Eyfebb toe correctionK-WIRE .[address] 4INFDAStart: 66-23-5377Gfmzss toe correction K-WIRE .[address] 4INFDAStart: 34-50-7012Ylxpdb toe correctionK-WIRE .[address] 4INFDAStart: 15-31-3540Cnbjoc toe correctionK-WIRE .[address] 4INFDA Start: 82-70-3167Lvvoot toe correctionK-WIRE .[address] 4INFDAStart: 69-95-6628Klsmsb toe correctionK-WIRE .[address] 4INFDAStart: 78-07-6008Acxhap toe correctionK-WIRE .[address] 4INFDAStart: 62-53-9495Krqtal toe correction K-WIRE .[address] 4INFDAStart: 67-95-5868Bidvno toe correctionK-WIRE .[address] 4INFDAStart: 05-24-5840Jqjnhg toe correctionK-WIRE .[address] 4INFDA Start: 13-21-4432Ffdnls toe correctionK-WIRE .045 STERILE 4INFDAStart: 33-60-8259Oinzak toe correctionK-WIRE .045 STERILE 4INFDAStart: 72-13-3258Bthzjv toe correctionK-WIRE .045 STERILE 4INFDAStart: 76-78-8334Ijcvjp toe correction K-WIRE .045 STERILE 4INFDAStart: 19-10-8662Yzmayv toe correctionK-WIRE .045 STERILE 4INFDAStart: 44-47-9070Ilxuyy toe correctionK-WIRE .045 STERILE 4INFDA Start: 03-18-2017{01}[id number]{17}623242{10}[id number] FDAStart: 12-16-2019 Goals DatePatient GoalDesired Activity/StatePersonal health goal Functional Status FhbrDwenccwouxCsvnupUtqwpwll17-28-6698Mguiftaurt StatusN/[facility]Tr[facility] Clinical Notes 04-23-2010 to 01-24-2025 Note Date & [id number] History of Present illness Narrative* Sha Sethi, DO - 01/24/2025 3:45 PM EST Images from the original note were not included. Suma Scott 1945 Suma Scott is a 79 y.o. female presents with chief complaint of Hiatal Hernia ([place] [facility] on Thursday with chest pains, hypertension. [...] it was her heart, she went to [facility] and was told that she [...] (HYDRODiuril) 25 MG tablet Every morning HYDROcodone-acetaminophen (Arvonia) 5-325 MG tablet 1 tablet, Every 8 [...] 5' 1 Wt 149 lb BMI 28.15 kg/m Smoking Status Never BSA 1.71 m Physical Exam Constitutional: Appearance: Normal appearance. HENT: [...] etcetera, I discussed with Dr. Dalton the ten pin bowling centre manager who can do a dilation if need [...] 2016 TONSILLECTOMY TOTAL KNEE ARTHROPLASTY Right 02/28/2019 [facility] MTP TUBAL LIGATION 1974 documented in this encounterResearch Psychiatric CenterAgcovgttby62-08-8627 History of Present illness Narrative* Carlita Patino DO - 01/02/2025 2:30 PM EDT Images from [...] IN THE MORNING AND BEFORE BEDTIME HYDROcodone-acetaminophen (Arvonia) 5-325 MG tablet 1 tablet, Every 8 [...] 2016 TONSILLECTOMY TOTAL KNEE ARTHROPLASTY Right 02/28/2019 [facility] MTP TUBAL LIGATION 1974 [5] Family History Problem Relation Name Age of Onset Cancer Mother Heart disease Father Osteoarthritis Father Cancer Maternal Grandfather Cancer Paternal Grandmother Mental illness Paternal Grandfather Diabetes Other spouse Hypertension Other spouse Cancer Other spouse Cancer Daughter documented in this encounterResearch Psychiatric CenterCijbdveaxr15-43-6816 Evaluation note* Author Mayco Velasquez [facility] FoundationAuthoredSeptember 2024 8:57amThe above note written by ___Iain Kenyon____ acting as human recorder, note dictated by Dr. Simmons .I performed the above HPI, ROS, and Examination. I formulated and dictated the treatment plan and was present for entire encounter. Mayco Velasquez D.O. [facility] Work Phone: 1(128) 455-357109-19-2025 Evaluation note* Author Mayco Velasquez [facility] FoundationAuthoredSeptember 2024 7:57amThe above note written by ___Iain Kenyon____ acting as human recorder, note dictated by Dr. Simmons .I performed the above HPI, ROS, and Examination. I formulated and dictated the treatment plan and was present for entire encounter. Mayco Velasquez D.O. [facility] Work Phone: 1(247) 498-500007-09-2025 History of Present illness Narrative* Deb Zamora [...] signing my name below, I, Desirae Gonzalez LPN , Paty attest that this documentation has been prepared [...] exam, discussion and plan. documented in this encounterMet[facility] Work Phone: 1(823) 161-720807-09-2025 Instructions* Patient Instructions* Desirae Mora LPN - [...] one year Same medications documented in this encounterMet[facility] Work Phone: 1(166) 871-267706-18-2025 Evaluation note* Author Mayco Velasquez [facility] FoundationAuthoredJune 2024 10:29amI performed the above HPI, ROS, and Examination. I formulated and dictated the treatment plan and was present for entire encounter. Mayco Velasquez D.O. [facility] Work Phone: 1(321) 344-925803-26-2025 NoteHNO ID: [id number] Author: MEJIA JOHN PA-C Service: ? Author Type: Physician Wringer Machine Operator Type: Progress Notes Filed: 06/08/2024 14:28 Note [...] Past Histories independently gathered by the clinical credit support counselor and the remaining scribed note accurately describes my personal service to the patient. Mejia John PA-C June 08, 2024 2:28 PM This note was generated with voice recognition software and may contain errors, including spelling, grammar, syntax and misrecognition of what was dictated, that are not fully corrected.[facility] HospitalRbpvpbth58-02-3805 History of Present illness Narrative* Mejia John [...] Past Histories independently gathered by the clinical credit support counselor and the remaining scribed note accurately describes my personal service to the patient. Mejia John PA-C June 08, 2024 2:28 PM This note was generated with voice recognition software and may contain errors, including spelling,grammar, syntax and misrecognition of what was dictated, that are not fully corrected. documented in this encounterNorwalk [facility] Hospital03-19-2025 Telephone encounter Note * Telephone Encounter - Anabell Felder RN - 06/01/2024 2:11 PM EDT Returned patient call and assisted if I could schedule her a nursing visit to have sutures removed but informed patient she will need to continue to keep the follow up with Mejia in [place] to review the surgical site. Patient said [...] concerns prior to her follow up appointment. [facility]03-19-2025 Miscellaneous Notes* Telephone Encounter - Anabell Felder RN - 06/01/2024 2:11 PM EDT Returned patient call and assisted if I could schedule her a nursing visit to have sutures removed but informed patient she will need to continue to keep the follow up with Mejia in [place] to review the surgical site. Patient said [...] stitches removed. She is rescheduled 06/08 in [place] but prefers to come to [facility]. She is asking if it is safe to leave stitches in that long and can someone please call patient. [phone]. documented in this encounterNorwalk Memorial Hospital03-19-2025 Telephone encounter Note * Telephone Encounter - Tania Fernandez - 06/01/2024 12:16 PM EDT Please call patient. She said her appointment was cancelled for tomorrow. She is post op and needs stitches removed. She is rescheduled 06/08 in [place] but prefers to come to [facility]. She is asking if it is safe to leave stitches in that long and can someone please call patient. [phone]. [facility]03-19-20[facility] Evaluation note* Author Mayco Velasquez [facility] FoundationAuthoredMarch 2024 9:04amThe above note written by ___Iain Kenyon____ acting as human recorder, note dictated by Dr. Simmons .I performed the above HPI, ROS, and Examination. I formulated and dictated the treatment plan and was present for entire encounter. Mayco Velasquez D.O. [facility] Work Phone: 1(543) 853-463803-07-2025 Telephone encounter Note* Telephone Encounter - Rosa Maria Huang - 05/20/2024 11:39 AM EST Pharmacy notified. [facility]03-07-2025 Miscellaneous Notes* Telephone Encounter - Rosa Maria Huang - 05/20/2024 11:39 AM EST Pharmacy notified. * Telephone Encounter - Rosa Maria Huang - 05/20/2024 11:16 AM EST Mejia Meraz MD You13 minutes ago (11:03 AM) Yes, please fill Percocet. Patient can use it as needed. * Telephone Encounter - Rosa Maria Huang - 05/20/2024 9:54 AM EST [facility] calling, they state that patient is already on Klonopin 0.5mg takes 1-2 at bedtime and 1 in the morning as needed. Do you still want them to fill the prescription for the percocet? Please advise [phone] documented in this encounterNorwalk Memorial Hospital03-07-2025 Telephone encounter Note * Telephone Encounter - Rosa Maria Huang - 05/20/2024 11:16 AM EST Mejia Meraz MD You13 minutes ago (11:03 AM) Yes, please fill Percocet. Patient can use it as needed. [facility]03-07-2025 Telephone encounter Note* Telephone Encounter - Rosa Maria Huang - 05/20/2024 9:54 AM EST [facility] calling, they state that patient is already on Klonopin 0.5mg takes 1-2 at bedtime and 1 in the morning as needed. Do you still want them to fill the prescription for the percocet? Please advise [phone] [facility]03-07-2025 NoteHNO ID: [id number] Author: VAIBHAV DOWELL APRN.SILVICULTURE TEACHER Service: Anesthesiology Author Type: Nurse Home Security Alarm Installer Type: Anesthesia Procedure Notes Filed: 05/20/2024 07:57 Note Text: ANESTHESIOLOGY PROCEDURE NOTE Peripheral Nerve Block General Information Procedure Start Time/Medication Administration: 05/20/2024 7:47 AM Procedure End time: 05/20/2024 7:47 AM Patient location during procedure: OR Timeout Performed Pre-procedure: timeout performed Consent Obtained: Yes Patient identity confirmed: arm band and patient Reason for block: primary surgical anesthetic Staffing SILVICULTURE TEACHER: Vaibhav Dowell APRN.SILVICULTURE TEACHER Performed by: DENISE Preparation Sterility Preparation: hand hygiene performed prior to procedure, surgical cap used, mask used, skin prep agent completely dried prior to procedure Site Prep: alcohol Pre-Procedure Neuro Exam Location: LUE Procedure Details Patient Position: supine Monitoring: Pulse OX, EKG and NIBP Block Type Upper Extremity: Leeann block Laterality: left Injection Technique: single-shot Ultrasound Guided: No Comments Lidocaine 0.5% 30ml Leeann Block IV SIGNATURE: Vaibhav Dowell APRN.CRNA PATIENT NAME: Suma Scott DATE: May 20, 2024 TIME: 7:56 AM CSN: [id number] Instructions* Patient Instructions* Vaibhav Rodriguez APRN.AIRCRAFT DESIGNER - 05/18/2024 9:48 AM EST PATIENT PREOPERATIVE INSTRUCTIONS Mejia Meraz has scheduled you for your procedure at this surgery center: [facility]: [phone] --[address] [address]. Please read below carefully for your personalized [...] surgery If you are currently using a irzs-wpa-mboz injectable or oral medication for diabetes or [...] Procedures: - YOU MUST HAVE A RESPONSIBLE CEMENTER HAND TAKE YOU HOME. A FIELD ARTILLERY OPERATIONS SPECIALIST OR FOOD AND NUTRITION SERVICES SUPERVISOR CANNOT BE MADE A RESPONSIBLE CEMENTER HAND. - We recommend that a responsible person [...] Advance Directive, please fax a copy to [phone] or email to for it to be [...] your chart that day. documented in this encounterNorwalk Memorial Hospital03-05-2025 History and physical note * Vaibhav [...] large neck Non-male patient STOP-Bang Score: 3 [id number] Score: Age: >=75 Sex: female CHF history: No Hypertension history: Yes Stroke/TIA/thromboembolism history: No Vascular disease history: No Diabetes history: No [id number] Score: 4 ARISCAT Score: Age: 51-80 Preoperative [...] or incontinence,, stones or chronic kidney disease GRADES 1 THRU 6 VISITING TEACHER: Negative for abnormal vaginal bleeding, abnormal vaginal [...] Prior to Admission medications as of 05/18/24 2147 Medication Sig Last Dose Taking hydrOXYchloroQUINE (PLAQUENIL) [...] Suma Scott DATE: 05/18/2024 TIME: 12:21 PM [facility]03-05-2025 History and physical note* Vaibhav Rodriguez APRN.SHANNON - 05/18/2024 9:40 AM EST Images from [...] large neck Non-male patient STOP-Bang Score: 3 [id number] Score: Age: >=75 Sex: female CHF history: No Hypertension history: Yes Stroke/TIA/thromboembolism history: No Vascular disease history: No Diabetes history: No [id number] Score: 4 ARISCAT Score: Age: 51-80 Preoperative [...] or incontinence,, stones or chronic kidney disease GRADES 1 THRU 6 VISITING TEACHER: Negative for abnormal vaginal bleeding, abnormal vaginal [...] Prior to Admission medications as of 05/18/24 8135 Medication Sig Last Dose Taking hydrOXYchloroQUINE (PLAQUENIL) [...] 05/18/2024 TIME: 12:21 PM documented in this encounterNorwalk Memorial Hospital03-01-2025 Evaluation note* Diagnosis Onset Date Resolution Status Admit Date Anxiety acuteThe [facility]ch 2024 7:58amCarpal tunnel syndrome of left wristacuteJune 01, 2024 7:58amFatty liveracuteJune 01, 2024 7:58amHyperglycemiaacuteJune 01, 2024 7:58amHyperlipidemiaacuteMaych 2024 7:58amHypertensionacuteJune 01, 2024 7:58amInsomniaacuteMaych 2024 7:58amIron deficiency anemiaacute June 01, 2024 7:58amRestless leg syndromeacuteThe [facility] Hospitalch 2024 7:58amSVT (supraventricular tachycardia)acuteThe [facility] Hospital2024 7:58amVitamin D deficiency acuteJune 01, 2024 7:58am [facility] Work Phone: 1(166) 492-859701-24-2025 History of Present illness Narrative* Mejia John PA-C - 04/08/2024 11:00 AM EST Images from the original note were not included. [facility] Hand & Upper Extremity Surgery New Patient Evaluation Consulting Provider: Sarbjit Andrea [address] [facility] [address] Consultation requested by Sarbjit Andrea for an [...] results and radiologist's interpretation, available in the [facility] health record. Images were reviewed with the [...] Past Histories independently gathered by the clinical credit support counselor and the remaining scribed note accurately describes [...] are not fully corrected. documented in this encounterNorwalk Memorial Hospital01-24-2025 NoteHNO ID: [id number] Author: KRYSTINA LEES RN Service: ? Author Type: Physician Wringer Machine Operator Type: Progress Notes Filed: 04/08/2024 10:32 Note Text: [facility] Hand [facility] New Patient Evaluation Consulting Provider: Sarbjit Andrea [address] [id number] Consultation requested by Sarbjit Andrea for an [...] results and radiologist's interpretation, available in the [facility] health record. Images were reviewed with the [...] the hand, between the (more content not included)...[facility]01-24-2025 Note* Addendum Note - Krystina Lees RN - 04/08/2024 10:32 AM ESTAddended by: KRYSTINA LEES on: 04/08/2024 10:32 AM Modules accepted: Orders [facility]01-24-2025 Miscellaneous Notes* Addendum Note - Krystina Lees RN - 04/08/2024 10:32 AM ESTAddended by: KRYSTINA LEES on: 04/08/2024 10:32 AM Modules accepted: Orders documented in this encounterNorwalk Memorial Hospital01-24-2025 NoteHNO ID: [id number] Author: LANRE ARSHAD RT(R) Service: ? Author Type: Technologist Type: [...] PATIENT PRESENTS WITH AN IMPLANTABLE OR ATTACHED DIRECTOR GLOBAL STRATEGIC PUBLISHER SALES: No RADIOLOGY DEPARTMENT: General X-ray: Exam(s) Completed: Upper Extremity X-Ray(s): Wrist, bilateral and Hand, bilateral PERIPHERAL IV DATA: Not applicable SIGNED BY: RT Kylee(R) April 08, 2024 9:57 [facility]01-21-2025 Telephone encounter Note* Telephone Encounter - Lanette [...] like you to check that out also. [facility]01-21-2025 Miscellaneous Notes* Telephone Encounter - Lanette [...] check that out also. documented in this encounterNorwalk Memorial Hospital12-24-2024 History of Present illness Narrative* Shelly Rosa - 03/08/2024 8:30 AM EST Images from the original note were not included. Suma Scott is a 79 y.o. female presents with chief complaint of left knee pain and swelling, follow up right total knee arthroplasty. HPI: Suma is here for left knee pain of which she went to [place] [facility] on 03-01-2024. Subsequently at some point [...] IN THE MORNING AND BEFORE BEDTIME HYDROcodone-acetaminophen (Arvonia) 5-325 MG tablet 1 tablet, Every 8 [...] 2016 TONSILLECTOMY TOTAL KNEE ARTHROPLASTY Right 02/28/2019 [facility] MTP TUBAL LIGATION 1974 FAMILY HISTORY: Family [...] views weight bearing films taken in the [place] office shows end stage degenerative changes of [...] 12:45 PM EST documented in this encounterResearch Psychiatric CenterYwtybhdyes72-47-8941 Evaluation note* Author Mayco Velasquez [facility] FoundationAuthoRiddle Hospital 2023 8:43amThe above note written by ___Iain Kenyon____ acting as human recorder, note dictated by Dr. Simmons .I performed the above HPI, ROS, and Examination. I formulated and dictated the treatment plan and was present for entire encounter. Mayco Velasquez D.O. [facility] Work Phone: 1(222) 571-541510-08-2024 History of Present illness Narrative* Brijesh Zhao, [...] PATIENT PRESENTS WITH AN IMPLANTABLE OR ATTACHED DIRECTOR GLOBAL STRATEGIC PUBLISHER SALES: No RADIOLOGY DEPARTMENT: General X-ray: Exam(s) Completed: Spine X-Ray(s): Cervical AP / LAT / OBL PERIPHERAL IV DATA: Not applicable SIGNED BY: RT Seth(Ash) December 22, 2023 9:29 AM documented in this encounterNorwalk Memorial Hospital10-08-2024 NoteHNO ID: [id number] Author: BRIJESH ZHAO RT(R) Service: Radiology Author Type: Clinical Product Manager Type: Progress Notes Filed: 12/22/2023 09:30 Note [...] PATIENT PRESENTS WITH AN IMPLANTABLE OR ATTACHED DIRECTOR GLOBAL STRATEGIC PUBLISHER SALES: No RADIOLOGY DEPARTMENT: General X-ray: Exam(s) Completed: Spine X-Ray(s): Cervical AP / LAT / OBL PERIPHERAL IV DATA: Not applicable SIGNED BY: RT Seth(Ash) December 22, 2023 9:29 AMSalt Lake Behavioral Health HospitalKtnxievz92-59-8501 NoteHNO ID: [id number] Author: PATRICK BOJORQUEZ MD Service: ? Author [...] Care Visit completed when applicable. Anushka Hawk posting machine operatordominique Bojorquez MD (sign out)[facility]10-08-2024 History of Present illness Narrative* Patrick Bojorquez [...] Care Visit completed when applicable. Anushka Hawk posting machine operatordominique Bojorquez MD (sign out) documented in this encounterNorwalk Memorial Hospital09-26-2024 NoteHNO ID: [id number] Author: SARBJIT ANDREA, DO Service: ? Author [...] findings. Sarbjit Andrea DO, MPH Staff Physician [facility] This document has been created with the use of voice recognition technology. It may contain inaccuracies: misspellings, inaccurate syntax or word sense that escaped review.[facility]09-26-2024 History of Present illness Narrative* Sarbjit Andrea DO - 12/10/2023 10:13 AM EDT Follow-up Visit [facility] December 10, 2023 CC: Lumbar spine pain [...] sense that escaped review. documented in this encounterNorwalk Memorial Hospital09-19-2024 Telephone encounter Note * Telephone Encounter - Zaira MillsVANDANA - 12/03/2023 2:16 PM EDT Post Spine [...] appointment 2-4 weeks post procedure by calling [phone] Patient does not have any questions or concerns. Patient will call office with any questions or concerns. Zaira Mills LPN [facility]09-19-2024 Miscellaneous Notes* Telephone Encounter - Zaira Mills LPN - [...] appointment 2-4 weeks post procedure by calling [phone] Patient does not have any questions or concerns. Patient will call office with any questions or concerns. Zaira Mills LPN documented in this encounterNorwalk Memorial Hospital09-16-2024 Telephone encounter Note * Telephone Encounter [...] Open Future (Single Instance) Lab Orders None [facility]09-16-2024 Miscellaneous Notes* Telephone Encounter - Candis [...] Instance) Lab Orders None documented in this encounterNorwalk Memorial Hospital09-11-2024 NoteHNO ID: [id number] Author: ROMAN WAGGONER, DO Service: ? Author Type: Physician Type: Procedures Filed: 11/25/2023 14:48 Note Text: PROCEDURE REPORT Surgery/Procedure Date: November 25, 2023 Interventionalist: Roman Waggoner DO Procedure(s): Left S1 transforaminal epidural steroid injection Pre-Op/Pre-Procedure Diagnosis: Lumbar radiculopathy Post-Op Diagnosis: same SUBJECTIVE: Suma Scott is a 78 year old female, who presents to the [facility] S[facility] for a left S1 transforaminal epidural steroid injection. She states she is NPO and has a transport truck driver for return home. 78 year [...] be discharged home in stable condition. [facility] note* Roman Waggoner DO - 11/25/2023 2:35 PM EDT PROCEDURE REPORT Surgery/Procedure Date: November 25, 2023 Interventionalist: Roman Waggoner DO Procedure(s): Left S1 transforaminal epidural steroid injection Pre-Op/Pre-Procedure Diagnosis: Lumbar radiculopathy Post-Op Diagnosis: same SUBJECTIVE: Suma Scott is a 78 year old female, who presents to the [facility] for aleft S1 transforaminal epidural steroid injection. She states she is NPO and has a transport truck driver for return home. 78 year [...] home in stable condition. Roman Waggoner DO [facility] Work Phone: 1(763) 832-793309-11-2024 Procedure note* Roman Waggoner DO - 11/25/2023 2:35 PM EDT PROCEDURE REPORT Surgery/Procedure Date: November 25, 2023 Interventionalist: Roman Waggoner DO Procedure(s): Left S1 transforaminal epidural steroid injection Pre-Op/Pre-Procedure Diagnosis: Lumbar radiculopathy Post-Op Diagnosis: same SUBJECTIVE: Suma Scott is a 78 year old female, who presents to the [facility] S[facility] for aleft S1 transforaminal epidural steroid injection. She states she is NPO and has a transport truck driver for return home. 78 year [...] condition. Roman Waggoner DO documented in this encounterNorwalk Memorial Hospital09-11-2024 History and physical note * Bharath [...] with explicit agreement by patient or patient client account representative to proceed before procedure. Patient seen and discussed with attending, Roman Waggoner DO, who agrees with plan. Bharath Vizcaino DO PGY-5 Interventional Spine and Musculoskeletal Medicine Fellow Physical Medicine and Rehabilitation SIGNATURE: Bharath Vizcaino DO PATIENT NAME: Suma Scott DATE: November 25, 2023 TIME: 1:54 PM [facility]09-11-2024 History and physical note* Bharath Vizcaino [...] with explicit agreement by patient or patient client account representative to proceed before procedure. Patient seen and discussed with attending, Roman Waggoner DO, who agrees with plan. Bharath Vizcaino DO PGY-5 Interventional Spine and Musculoskeletal Medicine Fellow Physical Medicine and Rehabilitation SIGNATURE: Bharath Vizcaino DO PATIENT NAME: Suma Scott DATE: November 25, 2023 TIME: 1:54 PM documented in this encounterNorwalk Memorial Hospital09-11-2024 Nurse Note* Darcy Seth MA - 11/25/2023 1:33 PM EDT PATIENT NAME: Suma Scott 1945 78 year old Current medications and allergies reviewed with patient in visit navigator: Yes Baseline vital signs and pain assessment entered in activity in visit navigator: Yes Trauma Surgeon for post spine injection procedure: Yes First [...] Seth MA November 25, 2023 1:33 PM [facility]09-11-2024 Nurse Note* Darcy Seth MA - 11/25/2023 1:33 PM EDT PATIENT NAME: Suma Scott 1945 78 year old Current medications and allergies reviewed with patient in visit navigator: Yes Baseline vital signs and pain assessment entered in activity in visit navigator: Yes Trauma Surgeon for post spine injection procedure: Yes First [...] medications): No Klonopin requested: Yes Signed by: Daryc Seth MA November 25, 2023 1:33 PM documented in this encounterNorwalk Memorial Hospital09-11-2024 History of Present illness Narrative* Mayco [...] Steroid Injection Verified by patient by: Dr. Fox Morel for post spine injection procedure: Yes [...] imaging, etc.) Yes Critical Information: Proceduralist: Dr. Fox Vizcaino DO PROCEDURAL TIME OUT: Time out [...] 2-4 weeks post procedure or by calling [phone], [facility] central scheduling. Discharge as above criteria met: Yes Condition of surgical/injection site at discharge: dry, intact, other: Yes November 25, 2023 Additional notes: No Discharge time: 1448 documented in this encounterNorwalk Memorial Hospital09-11-2024 NoteHNO ID: [id number] Author: MAYCO VANESSA LPN Service: ? Author [...] Injection Verified by patient by: Dr. Waggoner Trauma Surgeon for post spine injection procedure: Yes Patient [...] imaging, etc.) Yes Critical Information: Proceduralist: Dr. Fox Vizcaino DO PROCEDURAL TIME OUT: Time out [...] further issues SUPPLEMENTAL MATERIAL: (more content not included)...[facility] [facility] 11-17-2023 Telephone encounter Note* Telephone Encounter - Giselle Villaseñor RN - 11/17/2023 10:21 AM EDT Phoned patient and spoke with Suma to confirm appointment for Suma Scott for spine procedure on 11/25/2023 with the arrival time of 1pm for a 1:30pm schedule time appointment. Patient verbalized understanding of the following: -Provided education on spine procedure and answered questions related to spine injection procedure. -Trauma Surgeon is needed and for transport truck driver to wait in lobby on [...] anxiety. Patient verbalized understanding. Patient given number [phone], spine injections schedulers, if there is any [...] OF PRE AND POST INJECTION INSTRUCTIONS . [facility]09-03-2024 Miscellaneous Notes* Telephone Encounter - Giselle Villaseñor RN - 11/17/2023 10:21 AM EDT Phoned patient and spoke with Suma to confirm appointment for Suma Scott for spine procedure on 11/25/2023 with the arrival time of 1pm for a 1:30pm schedule time appointment. Patient verbalized understanding of the following: -Provided education on spine procedure and answered questions related to spine injection procedure. -Trauma Surgeon is needed and for transport truck driver to wait in lobby on [...] anxiety. Patient verbalized understanding. Patient given number [phone], spine injections schedulers, if there is any [...] POST INJECTION INSTRUCTIONS . documented in this encounterNorwalk [facility]08-[facility]24 Instructions* Patient Instructions* Sarbjit Andrea DO [...] 2023 TIME: 8:34 AM documented in this encounterNorwalk [facility] Hospital08-22-2024 NoteHNO ID: [id number] Author: SARBJIT ANDREA, DO Service: ? Author [...] Neurologic Positive for Numbne (more content not included)...[facility] 11-05-2023 History of Present illness Narrative* Sarbjit Andrea, DO - 11/05/2023 8:32 AM EDT Spine Care [...] 5/5 Ankle Plantarflexion 5/5 4/5 Knee Extension 5/ 5/5 Chano's Exam: Deferred Hip Range of [...] 2023 TIME: 8:34 AM documented in this encounterNorwalk Memorial Hospital08-22-2024 History of Present illness Narrative* Mary [...] PATIENT PRESENTS WITH AN IMPLANTABLE OR ATTACHED DIRECTOR GLOBAL STRATEGIC PUBLISHER SALES: No RADIOLOGY DEPARTMENT: General X-ray: Exam(s) Completed: Spine X-Ray(s): Lumbar AP / LAT / L5-S1 / FLEX-EXT PERIPHERAL IV DATA: Not applicable SIGNED BY: RT Holly(Ash) November 05, 2023 8:01 AM documented in this encounterNorwalk Memorial Hospital08-22-2024 NoteHNO ID: [id number] Author: MARY BOUCHER RT(R) Service: ? Author [...] PATIENT PRESENTS WITH AN IMPLANTABLE OR ATTACHED DIRECTOR GLOBAL STRATEGIC PUBLISHER SALES: No RADIOLOGY DEPARTMENT: General X-ray: Exam(s) Completed: Spine X-Ray(s): Lumbar AP / LAT / L5-S1 / FLEX-EXT PERIPHERAL IV DATA: Not applicable SIGNED BY: RT Holly(Ash) November 05, 2023 8:01 [facility]08-20-2024 History of Present illness Narrative* Alyssa Whelan [...] and that she is to see a therapeutic recreation specialist on 11/30/2023. Hoping to find relief. Migraines are stable. RLS is stable with Klonopin. Past Medical History: Diagnosis Date Arthritis Peptic ulcer disease Past Surgical History: Procedure Laterality Date GALLBLADDER SURGERY 2019 HYSTERECTOMY 1980 OTHER SURGICAL HISTORY 2018 hammer toe SHOULDER SURGERY 2016 TONSILLECTOMY TOTAL KNEE ARTHROPLASTY Right 02/28/2019 [facility] MTP TUBAL LIGATION 1974 Family History Problem [...] clinic: 6 months documented in this encounterResearch Psychiatric [id number] Telephone encounter Note* Telephone Encounter - Adelaide Redd LPN - 10/27/2023 9:26 AM EDT [employer] message sent to patient updating her that refill has been sent in. [facility]08-13-2024 Miscellaneous Notes* Telephone Encounter - Adelaide Redd LPN - 10/27/2023 9:26 AM EDT [employer] message sent to patient updating her that [...] Lab Orders None \ documented in this encounterNorwalk Memorial Hospital08-12-2024 Telephone encounter Note * Telephone Encounter [...] above. Please process accordingly. Jorge Flores MD [facility]08-12-2024 Telephone encounter Note* Telephone Encounter - [...] Future (Single Instance) Lab Orders None \ [facility]08-06-2024 Evaluation note* Author Mayco Velasquez [facility]ideC[facility] Centerfuad 2023 4:31pmThe above note written by ___Iain Kenyon____ acting as human recorder, note dictated by Dr. Simmons .I performed the above HPI, ROS, and Examination. I formulated and dictated the treatment plan and was present for entire encounter. Mayco Velasquez D.O. [facility] Work Phone: 1(385) 948-693907-09-2024 History of Present illness Narrative* Deb Zamora [...] arthritis on hydroxychloroquine stable Deb Zamora MD, FACC Review of Systems All other systems reviewed [...] signing my name below, I, Desirae Gonzalez LPN , Scribromeo attest that this documentation has been prepared [...] exam, discussion and plan. [facility] Work Phone: 1(984) 130-258107-09-2024 Instructions* Patient Instructions* Desirae Mora LPN - [...] instructions on dietary changes. documented in [facility]Met[facility] Work Phone: [phone]) 176-326706-06-2024 Evaluation note* Author Mayco Girvin [facility] FoundationAuthoredJunromeo 2023 9:48amThe above note written by ___Iain Kenyon____ acting as human recorder, note dictated by Dr. Simmons .I performed the above HPI, ROS, and Examination. I formulated and dictated the treatment plan and was present for entire encounter. Mayco Velasquez D.O. [facility] Work Phone: 1([phone]) 172-325006-04-2024 Telephone encounter Note* Telephone Encounter - Latoya Willoughby - 08/18/2023 4:36 PM EDT [facility] is calling Belinda Weaver MD today to request clarification on hydrOXYchloroQUINE (PLAQUENIL)'s instructions. Please call pharmacy to clarify. Patient has been identified by name and birthdate. Duration of symptoms: N/A Person calling: Pharmacy Call patient at: [phone] Was an appointment scheduled: No Closing statement: Results or non-symptom based questions: Thank you for calling [facility], your call will be returned within the next business day. Thank you, Latoya Willoughby [facility]06-04-2024 Miscellaneous Notes* Telephone Encounter - Latoya Willoughby - 08/18/2023 4:36 PM EDT [facility] is calling Belinda Weaver MD today to request clarification on hydrOXYchloroQUINE (PLAQUENIL)'s instructions. Please call pharmacy to clarify. Patient has been identified by name and birthdate. Duration of symptoms: N/A Person calling: Pharmacy Call patient at: [phone] Was an appointment scheduled: No Closing statement: Results or non-symptom based questions: Thank you for calling [facility], your call will be returned within the next business day. Thank you, Latoya Willoughby documented in this encounterNorwalk Memorial Hospital06-03-2024 NoteHNO ID: [id number] Author: BELINDA WEAVER MD Service: ? Author Type: Physician Type: Progress Notes Filed: 08/17/2023 14:48 Note Text: Rheumatology Outpatient Clinic Date of Service: 08/17/2023 Patient: Suma Scott Medical Record: [id number] Primary Care Physician: Mayco Velasquez DO Last Rheumatology visit: 08/07/2022 (with Belinda Weaver) History of Present Illness Suma Scott is a 78 year old female who presents on 08/17/2023 for an in-person visit for evaluation of Osteoarthritis. She is currently taking hydroxychloroquine sulfate. HISTORY OF PRESENT ILLNESS This patient is known to me from my previous practice with [facility] with a diagnosis of osteoarthritis. This patient [...] 20 mg tablet Ta (more content not included)...[facility]06-03-2024 History of Present illness Narrative* Belinda Weaver MD - 08/17/2023 2:31 PM EDT Images from the original note were not included. Rheumatology Outpatient Clinic Date of Service: 08/17/2023 Patient: Suma Scott Medical Record: [id number] Primary Care Physician: Mayco Velasquez DO Last Rheumatology visit: 08/07/2022 (with Belinda Weaver) History of Present Illness Suma Scott is a 78 year old female who presents on 08/17/2023 for an in-person visit for evaluation of Osteoarthritis. She is currently taking hydroxychloroquine sulfate. HISTORY OF PRESENT ILLNESS This patient is known to me from my previous practice with [facility] with a diagnosis ofosteoarthritis. This patient had [...] Antonio Moss M.D.01/04/2019 12:24 PM Dictation Location: [place] [address] ... Last XR Cervical Spine - Impression [...] which included preparing to see the patient, glai-gq-bjsh patient care, completing clinical documentation, obtaining and/or [...] 2023 Time: 2:31 PM documented in this encounterNorwalk [facility] Hospital02-28-2024 Evaluation note* Author Mayco Velasquez [facility] FoundationAuthoredFebruary 2023 10:12amThe above note written by ___Iain Kenyon____ acting as human recorder, note dictated by Dr. Simmons .I performed the above HPI, ROS, and Examination. I formulated and dictated the treatment plan and was present for entire encounter. Mayco Velasquez D.O. [facility] Work Phone: 1(874) 645-472202-01-2024 Evaluation note* Encounter Date Diagnosis Assessment Notes Treatment Notes Treatment Clinical Notes Apr, Restless leg syndrome (ICD-10 - G25.81) [employer] Other 12-26-2023 Evaluation note* Encounter Date Diagnosis Assessment Notes Treatment Notes Treatment Clinical Notes Feb, Restless leg syndrome (ICD-10 - G25.81) [facility] [email or web address] Other 11-21-2023 Evaluation note* Encounter Date Diagnosis [...] above medication. Jan,Other9:57 AM - 10:07 AM [employer] Other 10-19-2023 Evaluation note* Encounter Date Diagnosis [...] still want her to see Dr. Bajwa. [employer] Other 10-17-2023 Evaluation note* Encounter Date Diagnosis Assessment Notes Treatment Notes Treatment Clinical Notes Dec, Restless leg syndrome (ICD-10 - G25.81) [employer] Other 09-13-2023 Evaluation note* Encounter Date Diagnosis Assessment Notes Treatment Notes Treatment Clinical Notes Nov, Restless leg syndrome (ICD-10 - G25.81) [employer] Other 08-23-2023 Evaluation note* Encounter Date Diagnosis [...] M79.643)Continue with above medication daily as directed. [employer] Other 07-31-2023 Evaluation note* Encounter Date Diagnosis Assessment Notes Treatment Notes Treatment Clinical Notes Sep, Restless leg syndrome (ICD-10 - G25.81) [employer] Other 06-30-2023 Evaluation note* Encounter Date Diagnosis Assessment Notes Treatment Notes Treatment Clinical Notes Aug, Rheumatoid arthritis (ICD-10 - M 06.9) Aug,Restless leg syndrome (ICD-10 - G25.81) [employer] Other 04-27-2023 Evaluation note* Encounter Date Diagnosis Assessment Notes Treatment Notes Treatment Clinical Notes Jun, Restless leg syndrome (ICD-10 - G25.81) [employer] Other 03-31-2023 Evaluation note* Encounter Date Diagnosis Assessment Notes Treatment Notes Treatment Clinical Notes May, Restless leg syndrome (ICD-10 - G25.81) [employer] Other 02-21-2023 Evaluation note* Encounter Date Diagnosis Assessment Notes Treatment Notes Treatment Clinical Notes Apr, Restless leg syndrome (ICD-10 - G25.81) [employer] Other 02-13-2023 Evaluation note* Encounter Date Diagnosis Assessment Notes Treatment Notes Treatment Clinical Notes Apr, Diarrhea (ICD-10 - R19.7) [employer] Other 01-10-2023 Evaluation note* Encounter Date Diagnosis Assessment Notes Treatment Notes Treatment Clinical Notes Mar, Restless leg syndrome (ICD-10 - G25.81) [employer] Other 12-16-2022 Evaluation note* Encounter Date Diagnosis Assessment Notes Treatment Notes Treatment Clinical Notes Feb, Anxiety (ICD-10 - F41.9) Feb,estless leg syndrome (ICD-10 - G25.81) Feb,Migraine variant with headache (ICD-10 - G43.809) [employer] Other 11-20-2022 Evaluation note* Encounter Date Diagnosis Assessment Notes Treatment Notes Treatment Clinical Notes Jan, Restless leg syndrome (ICD-10 - G25.81) Jan,Migraine variant with headache (ICD-10 - G43.809) [employer] Other 11-07-2022 Evaluation note* Encounter Date Diagnosis [...] take her Iron three times a week. [employer] Other 08-18-2022 Evaluation note* Encounter Date Diagnosis [...] a one month break from seeing Dr. Rivsa because she is so busy with her [...] her Naltrexone that she has made at [facility] and this has stopped the shocks in her hands/fingers. Oct,Nocturia (ICD-10 - R35.1) Oct,Fatty liver (ICD-10 - K76.0)Recommend she continue with her weight loss, watch intake of carbs and sugars. [employer] Other 06-30-2022 Hospital Discharge instructions Patient Education [...] height. This can be done either in [place] ([place] or metric measurements. Note that charts are available to help you find your BMI quickly and easily without having to do these calculations yourself. To calculate your BMI in [place]ese [place] measurements, your health care provider will: [...] medical problems. BMI can be measured using Marshallese measurements or metric measurements. To interpret your [...] 11/11/2004 Document Revised: 02/12/2018 Document Reviewed: 01/13/2018 [employer] Patient Education 2020 [facility]. 09/12/2021 14:21:05 Dizziness Dizziness Dizziness is a [...] balance is fine. If you need to king maker one place for a long time, [...] Watch your dizziness for any changes. Take eirb-yma-cqvyicp and prescription medicines only as told by [...] 08/26/2001 Document Revised: 03/05/2018 Document Reviewed: 04/04/2017 [employer] Patient Education 2020 [employer] Follow Up Care 09/12/2021 13:16:42 With:Mayco Velasquez DO, FAM Address: [address] [place], [place] [address] [address]- When: Unknown [facility] 05-25-2022 Evaluation note* Encounter Date Diagnosis Assessment Notes Treatment Notes Treatment Clinical Notes July, Restless leg syndrome (ICD-10 - G25.81) [employer] Other 05-25-2022 Evaluation note* Encounter Date Diagnosis [...] with this plan. July,nxiety (ICD-10 - F41.9) July,ther12:53 PM -1:10 PM She voices that Dr. [...] completed the test and it was negative. [employer] Other 05-17-2022 Evaluation + Plan note Diagnostic Tests Pending * Rheumatoid Factor Quantitative 07/30/21 * CCP Antibodies IgG/IgA 07/30/21 [facility]05-05-2022 Evaluation note* Encounter Date Diagnosis Assessment Notes Treatment Notes Treatment Clinical Notes July, Restless leg syndrome (ICD-10 - G25.81) [employer] Other 03-04-2022 Evaluation note* Encounter Date Diagnosis Assessment Notes Treatment Notes Treatment Clinical Notes May, Restless leg syndrome (ICD-10 - G25.81) [employer] Other 02-25-2022 Evaluation note* Encounter Date Diagnosis [...] the numbness in her hands with the keg inspector. She saw Dr. Helms and discussed this with her but the EMG that was done it did not show any nerve damage so she wanted her to discuss this with her keg inspector. She will see Shantanu Thacker next week [...] case she begins to have any symptoms. [employer] Other 01-17-2022 Evaluation note* Encounter Date Diagnosis Assessment Notes Treatment Notes Treatment Clinical Notes Mar, Restless leg syndrome (ICD-10 - G25.81) [employer] Other 12-29-2021 Evaluation note* Encounter Date Diagnosis Assessment Notes Treatment Notes Treatment Clinical Notes Feb, Restless leg syndrome (ICD-10 - G25.81) [employer] Other 11-10-2021 Evaluation note* Encounter Date Diagnosis [...] COVID-19 vaccine. She discussed Ivermectin with Dr. Rivas anddishantanu order this to have on hand to use if needed. [employer] Other 02-08-2011 History general Narrative - Reported* Type Description Date Medical History peptic ulcer disease Medical Historyrestless leg syndromeMedical Historymigraine headachesMedical HistoryHTNMedical HistoryosteopeniaMedical HistoryStress Test 4-4-32Jlxvtxp HistoryEGD 04-26 Dr. TenorioyMedical HistoryEMG 04-26 Dr. HelmsMedical History Stable Noncalcified Pulmonary nodules bilaterally-saw Dr. Mcrae, we will plan on recheck CT Scan of Chest in Fall of 2011 per patientMedical HistoryMRI Brain 02-11-12; [facility]; [facility] Medical HistoryHepatitis A Step 1 HDMedical HistoryHepatitis A Step 2 ECHD Medical HistoryZostavax 08-20-11; HCHDMedical HistoryTyphoid 08-20-11; [facility] HistoryChest X-Ray 12-27-12; (right upper lobe infiltrate has resolved) [facility] Medical HistoryCT Chest 02-15-13; [facility] HistoryPneumovax 06/2013 ([facility])- Due again 06/2018Medical HistoryColonoscopy, essentially normal [address] Foley repeat [address] Foley 2010Medical HistoryDr Cabrera - shave shoulder bone RTMedical HistorySVTMedical Historypneumothorax rt lung Medical Gonxnpi28/2/2020 FIT Test/ NegativeSurgical Zcsbmtxevtzgtosotljq2684 Surgical Vibndxwneiuvhmnyptu0546Cjmkzefo HistoryT & ASurgical HistoryEGD Dr. TenorioPvfurl1799Nnlecztf HistoryColonoscopy, essentially normal, Dr. TenorioGcxnie5323 Surgical HistoryRt shoulder surgery - Dr Cabrera/2015Surgical HistorySVT [facility] [place]12/2015Surgical HistoryEKG - Dr Zamora02/2016[facility]Di[facility] SVT1Surgical Historyhammer toe surgery - Dr Roth03/2017Surgical History Dr [place] [address]Kwcgsfap Historycholecystectomy-2018 Surgical Historyright total knee enpzoesene40/2019Surgical HistoryFIT Test /Zqqwbwrf07/2/2020Hospitalization Historysee above surgical history Hospitalization Wxzatatpazrxgw3813 [employer] Other 02-08-2011 History general Narrative - Reported* Type Description Date Medical History peptic ulcer disease Medical Historyrestless leg syndromeMedical Historymigraine headachesMedical HistoryHTNMedical HistoryosteopeniaMedical HistoryStress Test 4-0-39Ytcdcpj HistoryEGD 04-26 Dr. TenorioyMedical HistoryEMG 04-26 Dr. HelmsMedical History Stable Noncalcified Pulmonary nodules bilaterally-saw Dr. Mcrae, we will plan on recheck CT Scan of Chest in fall per patientMedical HistoryMRI Brain 02-11-12; [facility] 08-20-11; [facility] Medical HistoryHepatitis A Step 1 HDMedical HistoryHepatitis A Step 2 ECHD Medical HistoryZostavax 08-20-11; HCHDMedical HistoryTyphoid 08-20-11; HDMedical HistoryChest X-Ray 12-27-12; (right upper lobe infiltrate has resolved) [facility] Medical HistoryCT Chest 02-15-13; [facility] HistoryPneumovax 06/2013 ([facility])- Due again 06/2018Medical HistoryColonoscopy, essentially normal 2008 Dr. Foley repeat [address] Foley 2010Medical HistoryDr Diogo - shave shoulder bone RTMedical HistorySVTMedical Historypneumothorax rt lung Medical Lscchhe72/2/2020 FIT Test/ NegativeSurgical Jhhqrxmxiusxsspxchlj3455 Surgical Pdmwtelzxinrqrenjqn2996Cbmjumqg HistoryT & ASurgical HistoryEGD Dr. TenorioWshpkk8106Bifmjbzk HistoryColonoscopy, essentially normal, Dr. TenorioDtdhrn3332 Surgical HistoryRt shoulder surgery - Dr Cabrera/2015Surgical HistorySVT lugo Titus12/2015Surgical HistoryEKG - Dr Zamora02/2016Surgical HistoryFisher [facility] - SVT1Surgical Historyhammer toe surgery - Dr Roth03/2017Surgical History Dr Cabrera [place] [address]Xqhmjtnz Historycholecystectomy / Dr. Reina Surgical Historyright total knee zrcakzqimy67/2019Surgical HistoryFIT Test /Nhprcbmo98/2/2020Hospitalization Historysee above surgical history Hospitalization Ihwpwmbjszvvcf0538 [facility] [email or web address] Other Evaluation noteNo InformationNortSt. Mary Medical Center [email or web address] Other Evaluation noteNo assessment information available [facility] Work Phone: Evaluation note* Diagnosis Primary osteoarthritis involving multiple joints- Primary Lumbar degenerative disc disease Degeneration of lumbar or lumbosacral intervertebral disc Long-term use of Plaquenil Encounter for long-term (current) use of other medications [facility] Diagnosis Primary osteoarthritis involving multiple joints [facility]* Diagnosis Onset Date Resolution Status Cystitis acuteHyperglycemiaacuteHyperlipidemiaacuteIron deficiency anemiaacuteNeuropathy acuteOsteoarthritisacuteRestless leg syndromeacuteVitamin D deficiencyacute [facility] Work Phone: Evaluation note* Diagnosis Primary osteoarthritis involving multiple joints documented in this encounter [facility]Eval[facility]* Diagnosis Radiculopathy, lumbar region- Primary Thoracic or lumbosacral neuritis or radiculitis, unspecified Spondylolisthesis of lumbar region Acquired spondylolisthesis [facility] encounter [facility]* Diagnosis Other spondylosis with radiculopathy, lumbar region documented in this encounter [facility]* Diagnosis Radiculopathy, lumbar region- Primary Thoracic or lumbosacral neuritis or radiculitis, unspecified [facility] encounter [facility]* Diagnosis Primary osteoarthritis involving multiple joints [facility]* Diagnosis Lumbar radiculopathy- Primary Thoracic or lumbosacral neuritis or radiculitis, unspecified Carpal tunnel syndrome of left wrist Carpal tunnel syndrome Left hand weakness Muscle weakness (generalized) Disturbance of skin sensation documented in this encounter [facility]* Diagnosis Numbness- Primary Disturbance of skin sensation documented in this encounter [facility]* Diagnosis Carpal tunnel syndrome of left wrist Carpal tunnel syndrome Left hand weakness Muscle weakness (generalized) documented in this encounter [facility]* Diagnosis Essential hypertension- Primary Unspecified essential hypertension Supraventricular tachycardia (CMS-HCC) Other specified cardiac dysrhythmias Mixed hyperlipidemia BMI 35.0-35.9,adult Never smoked tobacco Bilateral lower extremity edema Rheumatoid arthritis, involving unspecified site, unspecified whether rheumatoid factor present (Multi) documented in this encounter [facility] Work Phone: Evaluation note* Diagnosis Restless legs- Primary Restless legs syndrome (RLS) Paresthesia of skin Anesthesia of skin Disturbance of skin sensation Chronic left-sided low back pain with left-sided sciatica documented in this encounter [facility] HealthcareEvaluation note* Diagnosis Presence of right artificial knee joint- Primary Primary osteoarthritis of left knee documented in this encounter [facility] HealthcareEvaluation note* Diagnosis Carpal tunnel syndrome, left- Primary Carpal tunnel syndrome documented in this encounter [facility]* Diagnosis Pre-op examination- Primary Preoperative examination, [...] Assessment & Plan Note - Vaibhav Rodriguez APRN.AIRCRAFT DESIGNER - 05/18/2024 12:25 PM EST Associated Problem(s): [...] current medication regimen [facility]* Diagnosis Pre-op examination- Primary Preoperative examination, [...] Other postprocedural status [facility]* Diagnosis Essential hypertension- Primary Unspecified essential hypertension Mixed hyperlipidemia Supraventricular tachycardia Other specified cardiac dysrhythmias Never smoked tobacco BMI 29.0-29.9,adult Overweight documented in this encounter [facility] Work Phone: Evaluation note* Diagnosis Onset Date Resolution Status Admit Date Anxiety acuteSeptember 2024 8:01amEdemaacuteSeptember 2024 8:01am HyperglycemiaacuteSeptember 2024 8:01amHyperlipidemiaacuteSeptember 2024 8:01amHypertensionacuteSeptember , 2025 8:01amIron deficiency anemia acuteSept2024 8:01amLumbar degenerative disc diseaseacuteSept2024 8:01amRestless leg syndromeacuteSept2024 8:01amSVT (supraventricular tachycardia)acuteSept2024 8:01amUTI (urinary tract infection)acuteSept2024 8:01amVitamin D deficiencyacuteSept2024 8:01amWeight lossacuteSept2024 8:01am [facility] Work Phone: Evaluation note* Diagnosis Special screening for malignant neoplasms, colon- Primary documented in this encounter [facility] HealthcareEvaluation note* Diagnosis Hiatal hernia- Primary Diaphragmatic hernia without mention of obstruction or gangrene Esophageal stricture Stricture and stenosis of esophagus Esophageal dysphagia Dysphagia, pharyngoesophageal phase Other chest pain documented in this encounter [facility] HealthcareHospital course Narrative No data available for this section [facility] No data available for this section [facility] Additional Instructions Take Zofran as prescribed for nausea. Increase your intake of fluids and rest. Take Motrin Tylenol as needed for any recurrent pain. Follow-up with your primary care provider for ongoing management of anxiety.[facility] Work Phone: Progress note No data available for this section [facility] Reason for referral (narrative)* Diagnostic Procedure Only (Routine) - ClosedSpecialtyDiagnoses / ProceduresReferred By Contact Referred To ContactXR IMAGING Diagnoses Other spondylosis with radiculopathy, lumbar region Procedures XR LUMBAR MOTION 4V AP/LAT/ FLEX/EXT RADEX SPINE LUMBOSACRAL MINIMUM 4 VIEWS Brisa Lynn, PRODUCTION OPERATIONS ENGINEER.AIRCRAFT DESIGNER [address] [place] [address] Xr Imaging [place] [address] Referral IDStatusReasonStart DateExpiration DateVisits RequestedVisits [id number] Auto-Generated Referral / [facility] for referral (narrative)* Outpatient Procedure (Routine) - AuthorizedSpecialtyDiagnoses / ProceduresReferred By ContactReferred To ContactNEUROLOGICAL INSTITUTE Diagnoses Disturbance of skin sensation Procedures EMG(NEURO/NI) NERVE CONDUCTION STUDIES 9-[place] [address] [place] [address] Neurological [place] [address] [place] [address] Referral IDStatusReasonStart DateExpiration DateVisits RequestedVisits [id number] Auto-Generated Referral / * Diagnostic Procedure Only (Routine) - New RequestSpecialtyDiagnoses / ProceduresReferred By ContactReferred To ContactXR IMAGING Diagnoses Carpal tunnel syndrome of left wrist Left hand weakness Procedures XR CERV OTHER 4V AP/LAT/OBL RADEX SPINE CERVICAL 4 [place] [address] [place] [address] Xr Imaging [place] [address] Referral IDStatusReasonStthornton DateExpiration DateVisits RequestedVisits [id number] Request Auto-Generated Referral / [facility] for referral (narrative)* Diagnostic Procedure Only (Routine) - ClosedSpecialtyDiagnoses / ProceduresReferred By ContactReferred To ContactXR IMAGING Diagnoses Carpal tunnel syndrome of left wrist Left hand weakness Procedures XR CERV OTHER 4V AP/LAT/OBL RADEX SPINE CERVICAL 4 [place] [address] [place] [address] [place] [address] Referral IDStatusReasonStart DateExpiration DateVisits RequestedVisits [id number] Auto-Generated Referral T [facility] for referral (narrative)* Consultation (Routine) - AuthorizedSpecialtyDiagnoses / ProceduresReferred By ContactReferred To ContactCardiology Diagnoses Essential hypertension Procedures Follow Up In Cardiology Deb Zamora MD [address] [facility] 2, [place] [address] [place] [address] Deb Zamora MD 7[address] [facility] 2, [facility] [address] [place] [id number] Referral IDStatusReasonStart DateExpiration DateVisits RequestedVisits [id number]/9/20247/ [facility] Work Phone: Rehtna for referral (narrative)No reason for referral information availableL[facility]aster [facility] Work Phone: Reason for visit Narrative* Outpatient Procedure (Routine) - ClosedSpecialtyDiagnoses / ProceduresReferred By ContactReferred To ContactNEUROLOGICAL INSTITUTE Diagnoses Disturbance of skin sensation Procedures EMG(NEURO/NI) NERVE CONDUCTION STUDIES 9-[place] [address] [place] [id number] Neu[facility] [place] [address] [place] [address] Referral IDStatusReasonStthornton DateExpiration DateVisits RequestedVisits [id number] Auto-Generated Referral [facility] for visit Narrative* Diagnostic Procedure Only (Routine) - ClosedSpecialtyDiagnoses / ProceduresReferred By ContactReferred To Contact XR IMAGING Diagnoses Carpal tunnel syndrome of left wrist Left hand weakness Procedures XR CERV OTHER 4V AP/LAT/OBL RADEX SPINE CERVICAL 4 OR 5 VIEWS Sarbjit Andrea, [address] [place] [address] [place] [address] Referral IDStatusReasonStart DateExpiration DateVisits RequestedVisits [id number] Auto-Generated Referral [facility] Summary Purpose Family History Unknown Family Member Name Dates Details Family [...] Malignant neoplasm Unknown fatherDeceasedUnknownHeart diseaseUnknowngrandparentDeceasedUnknownMalignant neoplasmUnknowngrandparentMalignant neoplasmUnknownmotherDeceasedUnknown Relationship Condition Age at Onset Recorded Date/T gonzales daughter Malignant neoplasm Unknown fatherDeceasedUnknownHeart diseaseUnknowngrandparentDeceasedUnknownMalignant neoplasmUnknowngrandparentMalignant neoplasmUnknownmotherDeceasedUnknown Advance Directives Advance Directive Response Recorded Date/ Time Advance Directives No February 1:31pm Advance Directive Response Recorded Date/ Time Advance Directives No February 12:31pm Advance Directive Response Recorded Date/ Time Advance Directives No August 19 8:46am Advance Directive Response Recorded Date/ Time Advance Directives No August 19 4 7:46am Reason for Referral SpecialtyDiagnoses / ProceduresReferred By ContactReferred To Contact Diagnoses Chronic left-sided low back pain with left-sided sciatica Alyssa Whelan, CHAN [address] [place] [address] Referral IDStatusReasonStart DateExpiration DateVisits RequestedVisits [id number] Review/ Reason appt pt needs cons ult to evaluate dysphagia Diagnosis 1 Dysphagia (R13.10) Referral Organization [facility] Referring Provider First Name Mayco Referring Provider Last Name Clotilde Referring Provider Specialty Family Prac durga Referred Organization [facility] Referred Provider Bharath Bajwa Referred Address ,[place], [place],[address] Referred Provider Specialty Otolaryngolo gy Referral Priority Routine General Notes Ria Edwards 01/01/2023 09:59:00 AM > referral hard faxed to Dr Bajwa's office with visit note and insurance card. pt understands she will be contacted to schedule this appt. Reason appt pt needs cons ult to discuss sleep issues Diagnosis 1 Insomnia (G47.00) Referral Organization [facility] Referring Provider First Name Mayco Referring Provider Last Name Clotilde Referring Provider Specialty Family Prac durga Referred Organization [facility] Referred Provider Mayco Espino Referred Address [address] [place],[address] Referred Provider Specialty Sleep Medici ne Referral Priority Routine General Notes Ria Edwards 11/10/2022 05:02:32 PM > [facility] referral form faxed to scheduling with visit note, med list and demographics. pt understands she will be contacted to schedule this appt. Reason appt Please conta ct pt to schedule an appt consult for eval and treatment of RA Diagnosis 1 Rheumatoid arthritis (M06.9) Referral Organization [facility] Family Sheron Chiang Referring Provider First Name Mayco Referring Provider Last Name Clotilde Referring Provider Specialty Family Erwin calixto Referred Organization [facility] Referred Provider Belinda Lin Referred Address [address] [place],[address] Referred Provider Specialty Rheumatology Referral Priority Routine [...] her PCP and also with rheumatology in [place] and has been on hydroxychloroquine and stable. [...] on hydroxychloroquine stable * Deb Zamora MD, [facility] Chief Complaint and Reason for Visit Chief [...] Vitamin D deficiency Chief Complaint telephone/med refill [id number] for VisitCystitis Hyperglycemia Hyperlipidemia Iron deficiency anemia [...] 7am R73.9, N30.90, E55.9, Z79.899, E78.5 Sep [facility] 2024 8:16am Chief Complaint Admit Date telephone/med refill August 31, 2024 9:4 7am Screening October 19, 2024 8:0 7am R73.9, N30.90, E55.9, Z79.899, E78.5 Sep [facility] 2024 8:16am Referral Order November 23, 2024 1:02pm N39.0 November 23, 2024 1:15pm Chief Complaint Admit Date Screening October 19, 2024 8:0 7am R73.9, N30.90, E55.9, Z79.899, E78.5 Sep [facility] 2024 8:16am Referral Order November 23, 2024 1:02pm N39.0 November 23, 2024 1:15pm review labs/med refill December 02 025 8:01am Reason for Visit Admit Date Anxiety December 02, 2024 8:01am Edema December 02, 2024 8:01am Hyperglycemia December 02, 2024 8:01am Hyperlipidemia December 02, 2024 8:01am Hypertension December 02, 2024 8:01am Iron deficiency anemia December 02 025 8:01am [facility]bar [facility] 8:01am Restless leg syndrome December 02 8:01am [facility] 8:01am UTI (urinary tract infection) December 02, 2024 8:01am Vitamin D deficiency December 02 8:01am Weight loss December 02, 2024 8:01am Chief Complaint Admit Date Screening October 19, 2024 8:0 7am R73.9, N30.90, E55.9, Z79.899, E78.5 Sep [facility]2024 8:16am Referral Order November 23, 2024 1:02pm N39.0 November 23, 2024 1:15pm review labs/med refill December 02 025 8:01am N39.0 December 05, 2024 12:37pm Chief Complaint Admit Date Screening October 19, 2024 8:0 7am R73.9, N30.90, E55.9, Z79.899, E78.5 Sep [facility]2024 8:16am Referral Order November 23, 2024 1:02pm N39.0 November 23, 2024 1:15pm review labs/med refill December 02 025 8:01am N39.0 December 05, 2024 12:37pm i49.9 r06.02 January 09, 2025 7 :33am Chief Complaint Admit Date R73.9, N30.90, E55.9, Z79.899, E78.5 [facility] 2024 8:16am Referral Order November 23, 2024 1:02pm N39.0 November 23, 2024 1:15pm review labs/med refill December 02 025 8:01am N39.0 December 05, 2024 12:37pm i49.9 r06.02 January 09, 2025 7 :33am elevated BP/ER f/u January 23, 2025 1:58pm Reason for Visit Admit Date Anxiety December 02, 2024 8:01am Edema December 02, 2024 8:01am Hyperglycemia December 02, 2024 8:01am Hyperlipidemia December 02, 2024 8:01am Hypertension December 02, 2024 8:01am Iron deficiency anemia December 02 025 8:01am [facility]bar degenerative [facility] 8:01am Restless leg syndrome December 02 8:01am [facility] 8:01am UTI (urinary tract infection) December 02, 2024 8:01am Vitamin D deficiency December 02 8:01am Weight loss December 02, 2024 8:01am Hiatal hernia January 23, 2025 1:58pm Hypertension January 23, 2025 1:58pm Additional Source Comments INFORMATION SOURCE (unrecogn ized section and content) DATE CREATED AUTHOR 10/02/2018 [facility] DATE CREATED AUTHOR AUTHOR'S ORGANIZ ATION 09/23/2022 [facility] DATE CREATED AUTHOR AUTHOR'S ORGANIZ ATION 09/23/2022 [employer] DATE CREATED AUTHOR AUTHOR'S ORGANIZ ATION 10/23/2022 [facility] DATE CREATED AUTHOR AUTHOR'S ORGANIZ ATION 12/23/2023 [facility] DATE CREATED AUTHOR AUTHOR'S ORGANIZ ATION 05/22/2024 [facility] DATE CREATED AUTHOR AUTHOR'S ORGANIZ ATION 06/03/2024 [facility] DATE CREATED AUTHOR AUTHOR'S ORGANIZ ATION 06/09/2024 [facility] DATE CREATED AUTHOR AUTHOR'S ORGANIZ ATION 01/14/2025 [facility] DATE CREATED AUTHOR AUTHOR'S ORGANIZ ATION 01/24/2025 [facility] DATE CREATED AUTHOR AUTHOR'S ORGANIZ ATION 01/26/2025 [facility] EPIC REASON FOR VISIT (unrecogniz ed section and content) ReasonCommentsOsteoarthritisReasonCommentsMedication QuestionReasonOnset Date CommentsRefill Zjhgbqh16/11/2024ReasonCommentsNew Patient EvaluationStates a left hip and leg pain for 2 months. Pain 7/10Hip PainLeg PainReasonComments Preparations For ProceduresPre injection instructionsReasonCommentsRadio Gen RMP SpecialtyDiagnoses / ProceduresReferred By ContactReferred To ContactXR IMAGING Diagnoses Other spondylosis with radiculopathy, lumbar region Procedures XR LUMBAR MOTION 4V AP/LAT/ FLEX/EXT RADEX SPINE LUMBOSACRAL MINIMUM 4 VIEWS Brisa Lynn, PRODUCTION OPERATIONS ENGINEER.AIRCRAFT DESIGNER [address] [place] [address] Xr Imaging [place] [address] Referral IDStatusReasonStart DateExpiration DateVisits RequestedVisits [id number] Auto-Generated Referral /[id number]XcjkwezuzCxxzyhfax / Procedures Referred By ContactReferred To [facility] Diagnoses Radiculopathy, lumbar region Spondylolisthesis, lumbar region Injection Type: Lumbar Spine - Transforaminal epidural steroid injection with fluoro guidance Level: S1 Laterality: Left Blood thinners/antiplatelets: No CPT 55414 Procedures NJX AA&/STRD TFRML EPI LUMBAR/SACRAL 1 [place] [address] [place] [address] Spine [facility] [address] [place] [address] Referral IDStatusReasonStart DateExpiration DateVisits RequestedVisits [id number]/22/202412/[id number] RequestReason CommentsFollow UpInjectionsHad injection on 11/25/23. States 0 painReasonComments Follow-up1 yrReasonCommentsPainReasonCommentsOrder for X-ray Before Appt Fri ReasonCommentsConsultCarpal TunnelSpecialtyDiagnoses / ProceduresReferred By ContactReferred To ContactOrthopedics Diagnoses Carpal tunnel syndrome, unspecified laterality Procedures CONSULT PANEL TO ORTHOPAEDICS OFFICE/OUTPATIENT [facility] 60 [place] [address] [place] [address] Referral IDStatusReasonStart DateExpiration DateVisits RequestedVisits [id number] PCP Requested Referral /[id number] OpReasonCommentsFollow-up1yr Follow up for HypertensionSpecialtyDiagnoses / ProceduresReferred By ContactReferred To ContactCardiology Diagnoses Essential hypertension Procedures Follow Up In Cardiology Deb Zamora MD [address] [place] [address] 2, [address] [address] Phone: tel: fax: Deb Zamora MD [address] [place] [address] 2, [address] [address] Phone: tel: fax: Referral IDStatusReasonStart DateExpiration DateVisits RequestedVisits [id number]/9/20247/[id number] colonoscopy Would like to discuss doing cologuard insteadSpecialtyDiagnoses / Procedures Referred By ContactReferred To ContactGeneral Surgery Diagnoses Encounter for screening for malignant neoplasm of colon Procedures ID UNLISTED EVALUATION AND MANAGEMENT SERVICE Mayco Velasquez MD [address] [place] [address] [place] [address] Phone: tel: fax: Carlita Patino DO [address] [place] [address] Phone: tel: fax: Referral IDStatusReasonStart DateExpiration DateVisits RequestedVisits [id number]/10/20253/056031ElbbilVnlyvckvTehrko [facility], hypertension. Been nauseous. Hasn't been able to swallow foods for sometime. After workup CT scan shows large hiatal hernia. Care Team (unrecognized sect ion and content) Team Status: Active Member Role Status Dates Mayco Velasquez DO Primary Care Provider Active Team Status: Inactive Member Role Status Dates [...] 2024 Team Status: Active Member Role Status Dates Mayco Velasquez DO Primary Care Provider Active S tart: January 18, 2024 Eryn Walden ProviderActiveStart: January 18, 2024 Team Status: Inactive Member Role Status Dates Mayco Girvin , DO Primary Care Provider, Attending Pro vider [...] Active S tart: May 27, 2023 RAYNE RodriguezAAttending ProviderActiveStart: May 27, 2023 Team Status: Inactive Member Role Status Padmini Velasquez DO Primary Care Provide r, Attending Provider Active Start: June 01, 2023 End: June 01, 2023Team MemberRelationshipSpecialtyStart DateEnd Date Mayco Velasquez DO [address] [place] [address] [facility]27[facility]15 Team Status: Inactive Member Role [...] 05, 2023 End: October 05, 2023Deb Zamora , MDAttending ProviderActiveStart: October 05, 2023 End: October 05, 2023 Team Status: Inactive Member Role Status Padmini Velasquez DO Primary Care Provider Active S tart: October 19, 2023 End: October 18eferral SelfAttending ProviderActiveStart: October 19, 2023 End: October 19, 2023 Team Status: Inactive Member Role Status Dates Mayco Velasquez DO Primary Care Provide r, Attending Provider Active Start: October 20, 2023 End: October 20, 2023Team MemberRelationshipSpecialtyStart DateEnd Date Mayco Velasquez, DO [address] [place] [address] PCP - [facility]03/27/15Team MemberRelationshipSpecialtyStart DateEnd Date Mayco Velasquez, DO [address] [place] [address] PCP - [facility]03/27/15Team MemberRelationshipSpecialtyStart DateEnd Date Mayco Velasquez, DO [address] [place] [address] PCP - [facility]03/27/15Team MemberRelationshipSpecialtyStart DateEnd Date Myaco Velasquez, DO [address] [place] [address] PCP - [facility]03/27/15 Team Status: Inactive Member Role Status Dates Mayco Velasquez DO Primary Care Provide r, Attending Provider Active Start: November 23, 2023 End: November 23, 2023Team MemberRelationshipSpecialtyStart DateEnd Date Mayco Velasquez, DO [address] [place] [address] PCP - [facility]03/27/15Team MemberRelationshipSpecialtyStart DateEnd Date Mayco Velasquez, DO [address] [place] [address] PCP - GeneralFamily Medicine03/27/15 Team Status: Inactive Member Role Status Dates Mayco Velasquez DO Primary Care Provide r, Attending Provider Active Start: December 03, 2023 End: December 03, 2023Team MemberRelationshipSpecialtyStart DateEnd Date Mayco Velasquez, DO [address] [place] [address] PCP - GeneralFamily Medicine03/27/15Team MemberRelationshipSpecialtyStart DateEnd Date Mayco Velasquez, DO [address] [place] [address] PCP - GeneralFamily Medicine03/27/15Team MemberRelationshipSpecialtyStart DateEnd Date Mayco Velasquez, DO [address] [place] [address] PCP - GeneralFamily Medicine03/27/15Team MemberRelationshipSpecialtyStart DateEnd Date Mayco Velasquez, DO [address] [place] [address] PCP - GeneralFamily Medicine03/27/15Team MemberRelationshipSpecialtyStart DateEnd Date Mayco Velasquez, DO [address] [place] [address] PCP - GeneralFamily Medicine03/27/15Team MemberRelationshipSpecialtyStart DateEnd Date Mayco Velasquez, DO [address] [place] [address] PCP - GeneralFamily Medicine03/27/15Team MemberRelationshipSpecialtyStart DateEnd Date Mayco Velasquez DO [address] [place] [address] PCP - [facility]05/23/20Team MemberRelationshipSpecialtyStart DateEnd Date Mayco Velasquez DO [address] [place] [address] PCP - [facility]03/27/15Team MemberRelationshipSpecialtyStart DateEnd Date Mayco Velasquez MD [address] [place], [place] [address] PCP - [facility]01/28/23 Bharath Bajwa DO [address] [place] [address] Xoqmzkpqfljybf61/1/23 Anushka Helms DO [address] [address] Referring PhysicianNeurolog03/16/22Team MemberRelationshipSpecialtyStart DateEnd Date Mayco Velasquez MD [address] [place] [address] PCP - [facility]01/28/23 Bharath Bajwa DO [address] [place] [address] Vdjtlbtopjmmcu77/1/23 Anushka Helms DO [address] [place] [address] [place] [address] Referring PhysicianNeurolog03/16/22Team MemberRelationshipSpecialtyStart DateEnd Date Mayco Velasquez MD [address] [place], [place] [address] PCP - GeneralFamily Nvkxhbfc92/15/23 Bharath Bajwa, DO [address] [place] [address] Clfneuwsynqqwx05/1/23 Anushka Helms DO [address] [place] [address] [place] [address] Referring PhysicianNeurolog03/16/22Team MemberRelationshipSpecialtyStart DateEnd Date Mayco Velasquez, [address] [place] [address] PCP - GeneralFamily Medicine03/27/15Team MemberRelationshipSpecialtyStart DateEnd Date Mayco Velasquez, [address] [place] [address] PCP - GeneralFamily Medicine03/27/15Team MemberRelationshipSpecialtyStart DateEnd Date Mayco Velasquez, [address] [place] [address] PCP - GeneralFamily Medicine03/27/15 Team Status: Inactive Member Role Status Dates Mayco Velasquez DO Primary Care Provide r, Attending Provider Active Start: June 01, 2024 End: June 01, 2024Team MemberRelationshipSpecialtyStart DateEnd Mayco Jenkins, [address] [place] [address] [facility]03/27/15 Team Status: Inactive Member Role Status Dates Mayco Velasquez DO Primary Care Provider Active S tart: July 17, 2024 End: July 18, 2024Maalexandrea Max DOEmergency ProviderActiveStart: July 17, 2024 End: July 18, 2024Team MemberRelationshipSpecialtyStart DateEnd Date Mayco Velasquez DO [facility]05/23/20 Team Status: Inactive Member Role Status Padmini [...] Velasquez MD [address] [place] [address] [place] [address] [facility] - [facility] Mpaxgwuz08/15/23 Bharath Bajwa DO [address] [place] [address] Icnndcgkdkhlkg14/1/23 Anushka Helms DO [address] [address] Referring PhysicianNeurolog03/16/22 Team Status: Active Member Role/Relationship [...] January 09, 2025 End: January 09, 2025Datramaine Velasquez DOAttending ProviderActiveStart: January 09, 2025 End: January 09, 2025 Team Status: Inactive Member Role/Relationship Status Dates Mayco Velasquez DO Primary Care Provider Active S tart: November 21, 2024 End: November 21, 2024Datramaine Velasquez Attending ProviderActiveStart: November 21, 2024 End: November 21, [...] Status: Inactive Member Role/Relationship Status Dates Mayco Clotilde Primary Care Provider Active S tart: January 09, 2025 End: January 09, 2025Datramaine Velasquez DOAttending ProviderActiveStart: January 09, 2025 End: January 09, 2025 Team Status: Active Member Role/Relationship Status Dates Mayco Velasquez Primary Care Provider Active S tart: January 22, 2025 Robert Campbell ProviderActiveStart: January 22, 2025 Team Status: Inactive Member Role/Relationship Status Dates Mayco Clotilde Primary Care Provider Active S tart: January 23, 2025 End: January 23, 2025Daastonshantanu Velasquez DOAttraul ProviderActiveStart: January 23, 2025 End: January 23, 2025Team MemberRelationshipSpecialtyStart DateEnd Date Mayco Velasquez MD [address] [place] [address] [place] [address] PCP - GeneralFamily Cadeonyd87/15/23 Bharath Bajwa DO [address] [place] [address] Kulwzdlsjhwrmy41/1/23 Anushka Helms DO [address] [id number] Referring PhysicianNeurolog03/16/22 Goals (unrecognized section and content) Goals may be documented in a n alternate section Source Comments (unrecognize d section and content) In the event this informatio n is protected by the Federal Confidentiality of Alcohol and Drug Abuse Patient Records regulations: The Federal rules restrict any use of the information to criminally investigate or prosecute any alcohol or drug abuse patient.[facility]In the event this information is protected by the Federal Confidentiality of Alcohol and Drug Abuse Patient Records regulations: The Federal rules restrict any use of the information to criminally investigate or prosecute any alcohol or drug abuse patient.[facility] HospitalIn the event this information is protected by the Federal Confidentiality of Alcohol and Drug Abuse Patient Records regulations: The Federal rules restrict any use of the information to criminally investigate or prosecute any alcohol or drug abuse patient.[facility] HospitalIn the event this information is protected by the Federal Confidentiality of Alcohol and Drug Abuse Patient Records regulations: The Federal rules restrict any use of the information to criminally investigate or prosecute any alcohol or drug abuse patient.[facility] HospitalIn the event this information is protected by the Federal Confidentiality of Alcohol and Drug Abuse Patient Records regulations: The Federal rules restrict any use of the information to criminally investigate or prosecute any alcohol or drug abuse patient.[facility] HospitalIn the event this information is protected by the Federal Confidentiality of Alcohol and Drug Abuse Patient Records regulations: The Federal rules restrict any use of the information to criminally investigate or prosecute any alcohol or drug abuse patient.[facility] HospitalIn the event this information is protected by the Federal Confidentiality of Alcohol and Drug Abuse Patient Records regulations: The Federal rules restrict any use of the information to criminally investigate or prosecute any alcohol or drug abuse patient.[facility] HospitalIn the event this information is protected by the Federal Confidentiality of Alcohol and Drug Abuse Patient Records regulations: The Federal rules restrict any use of the information to criminally investigate or prosecute any alcohol or drug abuse patient.[facility] HospitalIn the event this information is protected by the Federal Confidentiality of Alcohol and Drug Abuse Patient Records regulations: The Federal rules restrict any use of the information to criminally investigate or prosecute any alcohol or drug abuse patient.[facility] HospitalIn the event this information is protected by the Federal Confidentiality of Alcohol and Drug Abuse Patient Records regulations: The Federal rules restrict any use of the information to criminally investigate or prosecute any alcohol or drug abuse patient.[facility] HospitalIn the event this information is protected by the Federal Confidentiality of Alcohol and Drug Abuse Patient Records regulations: The Federal rules restrict any use of the information to criminally investigate or prosecute any alcohol or drug abuse patient.[facility] HospitalIn the event this information is protected by the Federal Confidentiality of Alcohol and Drug Abuse Patient Records regulations: The Federal rules restrict any use of the information to criminally investigate or prosecute any alcohol or drug abuse patient.[facility] HospitalIn the event this information is protected by the Federal Confidentiality of Alcohol and Drug Abuse Patient Records regulations: The Federal rules restrict any use of the information to criminally investigate or prosecute any alcohol or drug abuse patient.[facility] HospitalIn the event this information is protected by the Federal Confidentiality of Alcohol and Drug Abuse Patient Records regulations: The Federal rules restrict any use of the information to criminally investigate or prosecute any alcohol or drug abuse patient.[facility] HospitalIn the event this information is protected by the Federal Confidentiality of Alcohol and Drug Abuse Patient Records regulations: The Federal rules restrict any use of the information to criminally investigate or prosecute any alcohol or drug abuse patient.[facility] HospitalIn the event this information is protected by the Federal Confidentiality of Alcohol and Drug Abuse Patient Records regulations: The Federal rules restrict any use of the information to criminally investigate or prosecute any alcohol or drug abuse patient.[facility] HospitalIn the event this information is protected by the Federal Confidentiality of Alcohol and Drug Abuse Patient Records regulations: The Federal rules restrict any use of the information to criminally investigate or prosecute any alcohol or drug abuse patient.[facility] HospitalIn the event this information is protected by the Federal Confidentiality of Alcohol and Drug Abuse Patient Records regulations: The Federal rules restrict any use of the information to criminally investigate or prosecute any alcohol or drug abuse patient.[facility] HospitalIn the event this information is protected by the Federal Confidentiality of Alcohol and Drug Abuse Patient Records regulations: The Federal rules restrict any use of the information to criminally investigate or prosecute any alcohol or drug abuse patient.[facility] HospitalIn the event this information is protected by the Federal Confidentiality of Alcohol and Drug Abuse Patient Records regulations: The Federal rules restrict any use of the information to criminally investigate or prosecute any alcohol or drug abuse patient.[facility] HospitalIn the event this information is protected by the Federal Confidentiality of Alcohol and Drug Abuse Patient Records regulations: The Federal rules restrict any use of the information to criminally investigate or prosecute any alcohol or drug abuse patient.[facility] HospitalIn the event this information is protected by the Federal Confidentiality of Alcohol and Drug Abuse Patient Records regulations: The Federal rules restrict any use of the information to criminally investigate or prosecute any alcohol or drug abuse patient.[facility] FOR RECORDS PERTAINING TO PATIENTS WHO [...] BE BASED ON THE PRIMARY CLINICAL RECORDS. [facility] [employer] [facility]. provides no warranty or guarantee of the accuracy or completeness of information in this document.
--- OUTSIDE RECORDS SUMMARY | 2025-02-01 20:11 | XMS_ITS | Continuity of Care Document ---
Author Organization [facility] Address [address] [place] [address] Phone Care Team Providers Care Boarding Specialist Name Role Phone Florentino Mabry DO Primary Care Provider [phone] Florentino Mabry DO Attending Provider Amilcar Dalton MD Attending Provider Amilcar Dalton MD Other Provider Care Teams Patient Care Team Team [...] 05, 2024 End: December 05, 2024Daastonkaylee Mabry DOChaitanyaending ProviderActiveStart: December 05, 2024 End: December 05, 2024 Visit Care Team Team Status: Inactive Member Role/Relationship Status Dates Florentino Elainejessica Primary Care Provider Active S tart: January 09, 2025 End: January 09, 2025Datramaine Clotilde Dianneraul ProviderActiveStart: January 09, 2025 End: January 09, 2025 Visit Care Team Team Status: Active Member Role/Relationship Status Padmini Mabry Primary Care Provider Active S tart: January 22, 2025 Robert Campbell ProviderActiveStart: January 22, 2025 Visit Care Team Team Status: Inactive Member Role/Relationship Status Dates Florentino Mabry DO Primary Care Provider Active S tart: January 23, 2025 End: January 23, 2025Datramaine Henryjessica Dianneraul ProviderActiveStart: January 23, 2025 End: January 23, 2025 Patient Care Team Team Status: Active Member Role/Relationship Status Padmini Mabry Primary Care Provider Active S tart: January 27, 2025 Amilcar Dalton MDAttending ProviderActiveStart: January 27, 2025 Amilcar Dalton MDOther ProviderActiveStart: January 27, 2025 Chief Complaint and Reason for Visit Chief Complaint Admit Date R73.9, N30.90, E55.9, Z79.899, E78.5 Sep 2024 8:16am Referral Order November 23, 2024 [...] 02, 025 8:01am Lumbar degenerative disc disease Septemb er 2024 8:01am Restless leg syndrome December 02 8:01am SVT (supraventricular tachycardia) Septe mber 2024 8:01am UTI (urinary tract infection) December [...] Legal Sex Female (finding) Sex Assigned [facility]mber 1944 Family History Relationship Condition Age at Onset Recorded Date/T gonzales daughter Malignant neoplasm Unknown fatherHeart diseaseUnknownDeceasedUnknownHiatal herniaUnknowngrandparentDeceased UnknownMalignant neoplasmUnknownHeart diseaseUnknownmotherDeceasedUnknown Malignant neoplasmUnknown Problems Active Problems Problem Diagnosis/Recorded Date Onset Date Status C omments UTI (urinary tract infection) November 23, 2024 10:23am Unknown Active Rheumatoid arthritisMay 2023 1:51pmUnknownActiveInsomniaMa2023 1:51pmUnknownActiveOther migraine, not intractable, without status migrainosus January 16, 2025 12:39pmUnknownActiveCarpal tunnel syndrome of left wristMarch 2024 7:35amUnknownActiveShortness of breathSeptember 10th, 2025 12:32pm UnknownActiveFatty liverFebruary 2023 8:01amUnknownActiveAnxietyFebruary 2023 8:01amUnknownActiveArrhythmiaSeptember [...] 2023 12:00amJune 2023 7:11amCephalexin 500 mg capsule Qbygpwpbevfj816WKGBSciyo times rqpad3523Swqwf 2023 11:00pmMar 2023 9:51amCephalexin 500 mg dhgtxcaRdfcdjkrdopl499WPLDUyiha times yhlad1459Qjjyw 2023 9:50amJune 2023 7:11amNitrofurantoin Monohyd/M-Cryst (Macrobid) 100 mg mnnjxfuGkiqymyubmuv208MGORMcwhi jilli0763Xlrnm 2023 11:00pmJune 2023 7:15ammust administer with a meal/foodClonazepam 0.5 mg tablet Xqtikxjkgzxn9WVEv Tqfpbjhq90554Hdmjl 2023 9:31amMay 2023 7:27am Restless legs syndrome Restless legs syndrometake 1-2 (0.5 MG) tablets at HS & take 1 (0.5 MG) tab in the AM orally as directed;Clonazepam 0.5 mg jerwgxBhfjpwtxymwy3EVTk Dxydqmkf7558 0Wv2023 7:26amJune 2023 3:56pmRestless legs syndrome Restless legs syndrometake 1-2 (0.5 MG) tablets at HS & take 1 (0.5 MG) tab in the AM orally as directed;Clonazepam 0.5 mg auwbpgRhhvwfwslgcz7SSCz Ynqmazbz4634 0[facility] 20[facility] 3:55pmJuly 2023 8:05amRestless legs syndrome Restless legs syndrometake 1-2 (0.5 MG) tablets at HS & take 1 (0.5 MG) tab in the AM orally as directed;Clonazepam 0.5 mg nalbxaSxlrcbccjvok6BPVm Pdnlgpof4175 0July 2023 8:05amSeptember 2023 8:15amRestless legs syndrome Restless legs syndrometake 1-2 (0.5 MG) tablets at HS & take 1 (0.5 MG) tab in the AM orally as directed;Methylprednisolone (Medrol (Royal)) 4 mg tablets,dose vdltDdfsuydfjrmq5SVmkp package wwqftydyci3975Qnho 2023 11:00pmJuly 2023 11:42amwith foodMethylprednisolone (Medrol (Royal)) 4 mg tablets,dose pack Uclcbosndmat6VCpdx package cgyrpnvvwi5418Whpp 2023 11:42amAugust 2023 2:48pmwith foodPrednisone 20 mg euecvvAmloywfmnaid1FU.with food or isyy6438 October 21, 2023 11:00pmSeptember 2023 7:15amtake 3 tablets a day x3 days, 2 tabs a day x3 days and then 1 tab a day x3 days orally WITH FOOD ORMILK; Duloxetine 30 mg capsule,delayed release(DR/EC)Lvqrpqgmdylm74YBUTGuswm daily October 29, 2023 8:16amAugust 2023 9:50amDuloxetine 30 mg capsule,delayed release(DR/EC)Rnxunjfagfvp64GJKBXhdqq orvor8228Apchdk 15th, 2024 9:49amAugust 2023 9:53amDuloxetine 30 mg capsule,delayed release(DR/EC)Lalxtzypvurj58JX POTwice xvnex56755Fgdmfc 15th, 2024 9:52amAugust 2024 7:21amHydrocodone- Acetaminophen 5-325 mg sitsbeJcgmumkttbhs6ETQZVVyuit 6 hours as needed for pain 0August 2023September 2023 7:15amDegeneration of intervertebral disc of lumbar region Other intervertebral disc degeneration, lumbar regionClonazepam 0.5 mg tablet Orbhoapqvgcx4SYQw Cgnyhnan54990Bnxkzqgxk 2023 8:12amOctober 2023 1:31pmRestless legs syndrome Restless legs syndrometake 1-2 (0.5 MG) tablets at HS & take 1 (0.5 MG) tab in the AM orally as directed;Clonazepam 0.5 mg xzgqtnZmqfytvfycpp6IGIv Ucjkyhuz8972 0October 2023 1:30pmNovember 2023 1:57pmRestless legs syndrome Restless legs syndrometake 1-2 (0.5 MG) tablets at HS & take 1 (0.5 MG) tab in the AM orally as directed;Clonazepam 0.5 mg lceegiQjfklrrjxzgz7VQFl Cnhoyujn2765 0December 2023 3:03pmJanuary 2024 9:47amRestless legs syndrome Restless legs syndrometake 1-2 (0.5 MG) tablets at HS & take 1 (0.5 MG) tab in the AM orally as directed;Hydrocodone-Acetaminophen 5-325 mg tabletDiscontinued1 TABPOEvery 6 hours as needed for eyjp3522Zbozlmfz 2023June 2024 8:44amLeft knee pain Pain in left kneeClonazepam 0.5 mg kigijuCxozvrsyzrii2VWBp Gquixqat29818Peruirc 2024 9:46amFebruary 2024 12:41pmRestless legs syndrome Restless legs syndrometake 1-2 (0.5 MG) tablets at HS & take 1 (0.5 MG) tab in the AM orally as directed;Omeprazole 40 mg capsule,delayed release(DR/EC)Active 40MGPOTwice ctzgc4676Wxjevtd2024 9:10amComplies with drug therapy Oseltamivir (Tamiflu) 75 mg befrcwxFbdbdnwomvwp69TMCCKbctg438Gxrwmcuz 2024 12:00amMarch 2024 7:15amClonazepam 0.5 mg ikicarGbzkuludwbec2PZXh Directed 67378Qwonsdqb 2024 12:41pmMarch 2024 7:51amRestless legs syndrome Restless legs syndrometake 1-2 (0.5 MG) tablets at HS & take 1 (0.5 MG) tab in the AM orally as directed;Simvastatin 20 mg rjqbkfGuzvct72NSPQSazyy foghhnu227 May 09, 2024 8:48amComplies with drug therapyMeloxicam 15 mg tablet Trszaqkmimpa71FKVTQqjkz974Tdmbe 2024 9:02amApril 2024 8:54amMeloxicam 15 mg tabletDiscontinued0.ROUTE.KUJHLKT780Vmfhw 2024 8:53amJuly 2024 10:28amTAKE 1 TABLET DAILYClonazepam 0.5 mg isjbmoOmtidbkpfktv4JGKn Guyhugnz2433 0April 2024 2:07pmMay 2024 7:09amRestless legs syndrome Restless legs syndrometake 1-2 (0.5 MG) tablets at HS & take 1 (0.5 MG) tab in the AM orally as directed;Valsartan 160 mg vglmxsHnjvyw583TPHOImswr329Dyq 27th, 2025 7:09amComplies with drug therapyClonazepam 0.5 mg nyrzngYebsbsfypnyl9TLDx Jrkzzoox66086Vlx 27th, 2025 7:09amJune 2024 2:16pmRestless legs syndrome Restless legs syndrometake 1-2 (0.5 MG) tablets at HS & take 1 (0.5 MG) tab in the AM orally as directed;Clonazepam 0.5 mg cdphrxFidqepatadph6RKOt Onwrarxl4010 0June 2024 2:16pmJuly 2024 7:51amRestless legs syndrome Restless legs syndrometake 1-2 (0.5 MG) tablets at HS & take 1 (0.5 MG) tab in the AM orally as directed;Ropinirole 0.25 mg tabletDiscontinued0.25MGPODaily at ezvuwrm937Krwx 29th, 2025 11:00pmJuly 2024 7:51amadminister 1-3 hours before bedtimeRopinirole 0.25 mg tabletDiscontinued0.25MGPODaily at pvjzmxa273 October 05, 2024 7:50amOctober 2024 10:53amadminister 1-3 hours before bedtimeClonazepam 0.5 mg yassngErxspxbeputw3FPHw Jipvejwn21152Hfid 2024 7:51amJuly 2024 7:51amRestless legs syndrome Restless legs syndrometake 1-2 (0.5 MG) tablets at HS & take 1 (0.5 MG) tab in the AM orally as directed;Clonazepam 0.5 mg ebqoliXebtrbghxpus1QFBq Ctbzgvjr3752 0July 2024 7:51amSept2024 7:43amRestless legs syndrome Restless legs syndrometake 1-2 (0.5 MG) tablets at HS & take 1 (0.5 MG) tab in the AM orally as directed;Meloxicam 15 mg tabletDiscontinued0.ROUTE.NYBRVGA165 October 12, 2024 10:27amAugust 2024 7:21amTake 1 tablet by mouth once daily Duloxetine 30 mg capsule,delayed release(DR/EC)Discontinued0.ROUTE.CDMPBTE4792 October 21, 2024 7:21amSept2024 7:24amTAKE 1 CAPSULE TWICE DAILY Meloxicam 15 mg tabletDiscontinued0.ROUTE.TJFSKIG237Wwqlxh 8th, 2025 7:21am December 02, 2024 7:24amTAKE 1 TABLET DAILYClonazepam 0.5 mg tablet Gudcbibaqedr4NGUt Zmpydwmm17275Tiyhjnpfl 10th, 2025 7:43amNovemb2024 2:04pmRestless legs syndrome Restless legs syndrometake 1-2 (0.5 MG) tablets at HS & take 1 (0.5 MG) tab in the AM orally as directed;Cefdinir 300 mg nplktwqBwapxmjektdy825WNHMNkbjm20439 November 22, 2024 11:00pmNov2024 2:04pmTake 2 (300 mg) capsules together once a day for 10 daysRopinirole 0.25 mg tabletDiscontinued0.25MGPO Daily at lmpphem683Ocvqoxi 2024 10:53amNovember 2024 2:28pm administer 1-3 hours before bedtimeMeloxicam 15 mg tabletDiscontinued0.ROUTE .IOFIKQW835Qmkujosb 3rd, 2025 9:09amNovember 2024 7:26amTake 1 tablet by mouth once dailyAmlodipine 5 mg tabletDiscontinued0.ROUTE.KSNDCDD536Wkumsshm 3rd, 2025 9:09amNovember 2024 2:11pmTAKE 1 TABLET DAILYZolmitriptan (Zomig) 2.5 mg tabletDiscontinued2.5MGPO.HDHXFKB48AbusukfdJanuary 16, 2025 12:00am January 16, 2025 3:52pmOther migraine without status migrainosus, not intractable Other migraine, not intractable, without status migrainosus2.5 mg orally at onset of migraine headache may repeat in 2 hoursRizatriptan (Maxalt) 10 mg hztqnxVzghjy7YE.JZFDQZS78Tmawwlxn 2024 12:00amtake 1 tab at onset of headache; if no relief may repeat 1 tab after at least 2 hrs; max = 2 tabs/24 hr POComplies with drug therapyMeloxicam 15 mg wdhooxZbsbqs18UIFZKxkzt as needed for painNovember 2024 12:00amTake 1 tablet by mouth once dailyComplies with drug therapyHydrochlorothiazide 25 mg ybmyuxHsistj00GATCSrwrgCulvlnuz 2024 12:00amComplies with drug therapyMetoprolol Succinate 50 mg Tablet Extended Release 24 CeHxrdgm62HGIVNbsdp dailyJanuary 2017 12:00amComplies with drug therapyHydrocodone-Acetaminophen 5-325 mg mzwwkuNqfijossnsdz5OYQZOR8A as needed for PainJanuary 2017 12:00amFebruary 2023 8:18amMeloxicam 15 mg PajzlvWfpanmemsmga13TSRZHzocnFppsuls 2017 12:00amAuge 2023 7:39am Clonazepam 0.5 mg wwpnlxCsubigugfbtg6UKLBDLofzh at bedtimeJanuary 2017 12:00amFebruary 2023 8:54amAmlodipine 5 mg TzudzgPfqbglrknvjq7BORDRYiicw March 17, 2017 12:00amAugust 2023 2:47pmOmeprazole 40 mg Capsule,Delayed Release(Dr/Ec)Hwkozffbueyo22FTXFOkgiaTjxmyhk 2017 12:00amJune 2023 7:17amAspirin (Aspir-81) 81 mg Tablet,Delayed Release (Dr/Ec)Pkjfyzjfcjhz98UTZY DailyMaruary 2017 12:00amFebruary 2023 8:16amAmitriptyline 25 mg KpxjktFnsavrobyyer04ZWCWEltwy at bedtimeMaruary 2017 12:00amMay 2024 11:07pmTriamcinolone Acetonide 0.025 % EqpktVrrfuzzoniuc1KYUQMTFMSUWHJPfdfk March 17, 2017 12:00amJune 2023 7:17amSimvastatin 20 mg Tablet Vaxocxvwurwb64EWCBLzyoy eveningMarch 17, 2017 12:00amFebruary 2024 8:49amDuloxetine 30 mg Capsule,Delayed Release(Dr/Ec)Ulqwojjjamuv18IQLXEidwb March 17, 2017 12:00amAugust 2023 8:17amZolmitriptan (Zomig) 2.5 mg [place],Non-RhfdyrsYgjllnkghhja2XRYHYAIVQDMGVjos times daily as needed for HeadacheMarch 17, 2017 12:00amNovebanner heart hospital 2024 12:38pmMultivitamin Tablet Arhsac5NXDLIMpoidDlueyhx 2018 11:00pmComplies with drug therapyAscorbic Acid (Vitamin C) (Vitamin C) 500 mg CayflyMcinge094KXDXIrzjvIiqkylj 2018 11:00pmComplies with drug therapyFerrous Sulfate (Iron) 325 mg (65 mg iron) KhrhfoLmzjvmpfpgcb48SVUHXklaeHivricn 2018 11:00pmJune 2023 7:17am Vitamin E 400 unit LaohggkQmzansrdmlbu319HNUKXSQjipjWikhfiz 2018 11:00pm January 23, 2025 2:30pmVitamin B Complex (Super B-50 Complex) CapsuleActive1 CAPPODailyOctober 2018 11:00pmComplies with drug therapyCoenzyme Q10 (Coq- 10) 100 mg DdrmaizKrjckj018SXDXXiwoxLpclnkx 2018 11:00pmComplies with drug therapyCholecalciferol (Vitamin D3) (Vitamin D3) 5,000 unit GnyyomUmbjuc6166BFDV PODailyOctober 2018 11:00pmComplies with drug therapySodium Bicarbonate 325 mg RgrncsGkjbanzmryfk3FKQSIvxki dailyOctober 2018 11:00pmFebruary 2023 8:19amOndansetron Hcl 4 mg mnklhpJlpuppmljbra6VOTRGvqmd 8 hours as needed for nausea and rxurybbp9436Vxf 4th, 2025 11:00pmNovember 2024 2:24pmHydroxychloroquine 200 mg rtntxmHtuajymzvcvz625MOVYHakst dailyFebruary 2023 12:00amJune 2024 9:29amFreeTextSig: TAKE 1 TABLET BY MOUTH TWICE DAILY Oral; Note: Source Status: Continue; Provider: MEG TREVINO Gabapentin 100 mg capsuleDiscontinuedMGPOFebruary 2023 12:00amFebruary 2023 8:21amFreeTextSi capsule Orally 4 in the am. and 5 at night; Note: Source Status: Taking; Provider: Clotilde Good CAspirin (Tre Chewable Aspirin) 81 mg tablet,rarzudchIhjbpxeixdxz97MOQNZgimeJwxoubbg 2023 12:00am May 13, 2023 8:16amGabapentin 100 mg iwfxtuzOiklslvdjkgb634XAMMZeiabrbv 2023 8:17amJune 2023 7:17amFreeTextSi capsule Orally 5 in the am. and 5 at night; Note: Source Status: Taking; Provider: Clotilde Good CSodium Chloride 1,000 mg tablet,koraskeCatnwyqvclax3KBENDKsziz dailyFebruary 2023 12:00amJun2023 7:17amFreeTextSi tablet Orally Twice a day; Note: Source Status: Taking; Provider: Clotilde Good CVitamin B Complex tablet Mymcfzgumbci4FURVGAxrdfLfggbqji 2023 12:00amAugu2023 2:49pmOmega-3 Fatty Acids 1,000 mg ixshxwxQjvnsziuxzln6763CPVCCqazgUdgkdxqg 2023 12:00am August 20, 2023 7:16amClonazepam 0.5 mg uyuuiqVftlvjayurkk3PCHo Directed as neededuary 2023 8:52amFebruary 2023 8:55amtake 1-2 (0.5 MG) tablets at HS & take 1 (0.5 MG) tab in the AM orally as directed PRN;Clonazepam 0.5 mg vgmiyvLyhzabakuswn1WXSh Adlgroid08706Omiiyymf 2023 8:54amApril 2023 9:31amRestless legs syndrome Restless legs syndrometake 1-2 (0.5 MG) tablets at HS & take 1 (0.5 MG) tab in the AM orally as directed;Ferrous Sulfate (Iron) 325 mg (65 mg iron) tablet Swntcrqldqga73DHRL.COMPLEXFormerly [facility]2023 7:12amSept2023 7:16am1 tablet by mouth Thursday and ThuGabapentin 100 mg wwtoakjOwwqvoeyulvv7QI.COMPLEX August 20, 2023 7:12amMay 2024 11:06pmtake 1 (100 MG) capsule in the morning by mouth and take 2 (100 MG) capsules at nightGabapentin 400 mg capsule Onoohkxgoeob386XZMVQvrfy dhqpl470Ujfh 5th, 2024 11:00pmWvy 2024 11:06pm Omeprazole 40 mg capsule,delayed release(DR/EC)Dxvqteucrrob46WVAPLfmte dailyFormerly [facility]2023 7:16amJanuary 2024 9:11amSodium Chloride 1,000 mg tablet,soluble Pfvcuq4654QSQSRnwkj dailyFormerly [facility]2023 7:16amComplies with drug therapy Meloxicam 15 mg mmvazqUtmdhghvjjem51RXRKPonkg020Wqex 2023 7:38amDecember 2023 1:54pmFerrous Sulfate (Iron) 325 mg (65 mg iron) aksthbNpkdrrakfjyc78 MGPO.COMPLEXNorthern [facility]20[facility] 7:14amSept2023 7:24am1 tablet by mouth Thursday and Thu and ThuFerrous Sulfate (Iron) 325 mg (65 mg iron) tablet Ozlyqrfcscoj65YMWU.COMPLEXNorthern [facility]ajo Medical Center2023 7:24amSeptember 2023 7:50am 65 mg orally 1 tablet by mouth Thursday and Thu and Thu;Ciprofloxacin Hcl 500 mg cszbvbHjxkqnbaszpr122DTQMJszem mnnno860Pqoqa 2023 11:00pm[facility] 8:09amHydrocodone-Acetaminophen 5-325 mg pmppznYdhiwrjptfpw6BYLGZQqtjo 6 hours as needed for irae5508Ptnfbjgg ecember 2023 8:13amLeft knee pain Pain in left kneeClonazepam 0.5 mg ijaxokJxbirwiqwwex3WPSb Blqdytgj27491Wkubi 2024 7:50amApril 2024 2:07pmRestless legs syndrome Restless legs syndrometake 1-2 (0.5 MG) tablets at HS & take 1 (0.5 MG) tab in the AM orally as directed;Amlodipine 5 mg dmqfoxNxgcliyecyiq8LDCLEgmwgOzkrzkhg 4th, 2024 12:00amNove2023 1:57pmAmlodipine 5 mg fbvkubOzrttnwpwaar6GX VXDnwwi529Drqpcjak 4th, 2024 1:57pmSept2024 7:51amClonazepam 0.5 mg ockelnJmfgvdzrpopm4KNYy Smgoaupt37654Whkclxyj 4th, 2024 1:57pmDecember 2023 3:03pmRestless legs syndrome Restless legs syndrometake 1-2 (0.5 MG) tablets at HS & take 1 (0.5 MG) tab in the AM orally as directed;Duloxetine 30 mg capsule,delayed release(DR/EC)Active 30MGPOTwice dailySept2024 7:23amComplies with drug therapyMeloxicam 15 mg ecjwqkQqwhzssaqkik14UOSIOavhcSepvrquyv 19th, 2025 7:23amNove2024 9:10amAmlodipine 5 mg asoalaNpmjeksjkxjc4RTKaqji987Zaqixqlst 19th, 2025 7:50am January 16, 2025 9:10amtake 1/2 of a 5 MG tablet orally daily;magnesium DiscontinuedPODailyJanuary 23, 2025 12:00amN2024 2:24pm Amlodipine 5 mg evbvfyAojjizcrtlcr6OHADLwxdbGypeoxff 10th, 2025 2:11pmJanuary 23, 2025 2:23pmHydroxychloroquine (Plaquenil) 200 mg ublvlhWyrtzq173SYIROkzbe dailyJanuary 23, 2025 12:00amComplies with drug therapyClonazepam 0.5 mg rxtziuCfcijchlinmn7DIGm Krtiyzxg12066Gisfovhw 10th, 2025 2:27pmNov2024 8:35amRestless legs syndrome Restless legs syndrometake 1-2 (0.5 MG) tablets at HS & take 1 (0.5 MG) tab in the AM orally as directed;Turmeric Root Extract 500 mg xsiswaiSulvblkfsyhn1984AE LRQcbgb366AdfhamgjJanuary 23, 2025 12:00amNovember 2024 8:38am Hydrochlorothiazide 25 mg aqwguuIvaiauwrrxsl76VNDSWmawx gpiluti752GeacbdftJanuary 23, 2025 12:00amNovemb2024 7:26amFerrous Sulfate (Iron) 325 mg (65 mg iron) fpqnroGcslrf823YHGS.once weeklySept2023 7:48amComplies with drug therapyZinc Amino Acid Chelate 50 mg rqelogLlytndnhtatb97JHENZhissSgmoor 2023 11:00pmNov2024 2:30pmValsartan 160 mg kopjzpDfqjtuxchzsq189KNQN DailyAugust 2023 11:00pmMay 2024 7:09amHydrocodone-Acetaminophen 5- 325 mg wutsreGlqowffryrkt5LQBSTFatwx 6 hours as needed for xodl2624Toceym ugust 2023 7:28amDegeneration of intervertebral disc of lumbar region Other intervertebral disc degeneration, lumbar regionHydroxychloroquine 200 mg qeagteSjnjooqjnsqg925HHEQKqywd ougum45298Xbfz 2024 9:26amSeptember 2024 7:14am Immunizations Immunization Event Date Not Given Reason Dose Number Biological Aide Lot Number Reason(s) Given Vaccine Information Statement [...] U/L16.0-77.0 Troponin I High SensitivityJanuary 22, 2025 6:25amN2024 6:25am4.4 pg/mL4.0-51.3CUT-OFF POINTS HAVE BEEN ESTABLISHED BASED [...] DIAGNOSTIC AND CLINICAL INFORMATION.Anion GapJanuary 22, 2025 6:25amNove2024 6:25am 14.1Lactic Acid LevelJanuary 22, 2025 6:25amNove2024 6:25am1.7 mmol/L0.4-2.0Basophils # (Auto)January 22, 2025 6:25amNove2024 6:25am0.1 10 3/uL0.0-0.1Urine Other CastsNovdignity health [facility] 2024 8:18amNONE SEEN #/LPFNONE SEENAlbumin/Globulin RatioNovebanner heart hospital 2024 6:25amNovember 2024 6:25am1.5Basophils (%) (Auto)January 22, 2025 6:25amNoveer 2024 6:25am 1.1 %0.2-2.0Urine Other CrystalsNovember 2024 8:18amNone Seen #/HPFNone SeenAlbuminNovdignity health ari[facility] 2024 6:25amNovember 2024 6:25am4.4 g/dL3.4-5.0 Eosinophils # (Auto)January 22, 2025 6:25amNoveer 2024 6:25am0.3 10 3/uL0.0-0.7Urine BacteriaCumberland County Hospital 2024 8:18amNONE SEEN #/HPFNONE SEEN Alkaline PhosphataseNovdignity health [facility]ri[facility] specialty [facility] 2024 6:25amNoveer 2024 6:25am96 U/L 46-116Eosinophils (%) (Auto)January 22, 2025 6:25amNovember 2024 6:25am 3.8 %0.9-7.0Urine BilirubinCumberland County Hospital 2024 8:18amNEGATIVENEGATIVEAlanine Aminotransferase (ALT/SGPT)January 22, 2025 6:25amNoveer 2024 6:25am33 U/P06-82GrmjbuczevWjiafcil 2024 6:25amNovember 2024 6:25am45.9 % 36.0-48.0Urine Occult BloodCumberland County Hospital 2024 8:18amNEGATIVENEGATIVEAspartate Amino Transf (AST/SGOT)January 22, 2025 6:25amNoveer 2024 6:25am27 U/L 15-37HemoglobinNovdignity health [facility]ri[facility] specialty [facility] 2024 6:25amNoveer 2024 6:25am15.3 g/dL 12.0-16.0Urine AppearanceNovdignity health a[facility] 2024 8:18amCLEARCLEARBUN/Creatinine Ratio January 22, 2025 6:25amNovember [...] 8:18amNEGATIVE mg/dLNEGATIVEChloride LevelNovember 2024 6:25amNovember 2024 6:25am99 mmol/I52-214Icsnuukxmpt (%) (Auto) January 22, 2025 6:25amNovember 2024 6:25am31.3 %20.5-60.0Urine Leukocyte EsteraseNovember 2024 8:18amNEGATIVENEGATIVECarbon Dioxide LevelNovember 2024 6:25amNovember 2024 6:25am29.1 mmol/L21.0-32.0Mean Corpuscular HemoglobinNovember 2024 6:25amNovember 2024 6:25am28.8 pg26.7-34.0 Urine MucusNovember 2024 8:18amNONE SEENNONE SEENCreatinineNovdignity health arizona specialty hospital 2024 6:25amNovember 2024 6:25am0.82 mg/dL0.55-1.02Mean Corpuscular Hemoglobin ConcentNovdignity health a[facility] specialty hospital 2024 6:25amNovember 2024 6:25am33.3 g/dL 29.9-35.2Urine NitriteNovdignity health [facility] 2024 8:18amNEGATIVENEGATIVEEstimated GFR ()January 22, 2025 6:25amNoveer 2024 6:25am>60>=60 mL/min/1.73m 2Mean Corpuscular VolumeNovdignity health [facility] specialty hospital 2024 6:25amNovebanner heart hospital 2024 6:25am86.3 fL81.0-99.0Urine pHCumberland County Hospital 2024 8:18am7.55.0-9.0Estimated GFR (Non- AmericanNovdignity health arizona specialty hospital 2024 6:25amNove2024 6:25am>60>=60 mL/min/1.73m 2Monocytes # (Auto)January 22, 2025 6:amNovebanner heart hospital 2024 6:25am0.9 10 3/uLAbove high normal0.3-0.8Urine ProteinCumberland County Hospital 2024 8:18am NEGATIVE mg/dLNEG/TRACEGlobulinNovdignity health arizona specialty hospital 2024 6:25amNoveer 2024 6:25am2.9 g/dLMonocytes (%) (Auto)January 22, 2025 6:25amNoveer 2024 6:25am12.5 %Above high normal1.7-12.0Urine RBCNovdignity health [facility]zona specialty [facility] 2024 8:09eo4-8 #/HPF 0-2Glucose LevelNovdignity health [facility] 2024 6:25amNove2024 6:07ld605 mg/dLAbove high qlbouy35-380Xmcb Platelet VolumeNovdignity health arizona specialty hospital 2024 6:25amNoveer 2024 6:25am10.3 fL9.5-13.5Urine Specific GravityNovdignity health [facility] 2024 8:18am1.010 1.005-1.025Potassium LevelNovdignity health [facility] specialty hospital 2024 6:25amNovember 2024 6:25am4.2 mmol/L3.5-5.1Neutrophils # (Auto)January 22, 2025 6:25amNovember 2024 6:25am3.6 10 3/uL1.4-6.5Urine Squamous Epithelial CellsNovember 2024 8:18am RARE #/LPFNONE/RARESodium LevelNovdignity health [facility] specialty [facility] 2024 6:25amNovember 2024 6:67ud423 mmol/D589-518Ozzdkwobdkn (%) (Auto)January 22, 2025 6:25amNoveer 2024 6:25am51.2 %43.0-75.0Urine UrobilinogenNovdignity health ari[facility] specialty hospital 2024 8:18am0.2 EU/dL0.2-1.0Total BilirubinNovdignity health [facility] 2024 6:25amNoveer 2024 6:25am0.5 mg/dL0.2-1.0[facility]ate[facility] 2024 6:25amNoveer 2024 6:99zj362 10 3/gK517-660Gztby WBCCumberland County Hospital 2024 8:18amNONE SEEN #/HPFNONE SEENTotal ProteinCumberland County Hospital 2024 6:25amNoveb[facility] 2024 6:25am7.3 g/dL6.4-8.2Red Blood CountCumberland County Hospital 2024 6:25amNovember 2024 6:25am5.32 10 6/uL 4.20-5.40Red Cell Distribution WidthNovember 2024 6:25amNoveer 2024 6:25am12.5 %11.0-15.0Corrected White Blood CountCumberland County Hospital 2024 6:25am January 22, 2025 6:25am7.1 10 3/uL4.0-11.0Corrected White Blood CountSeptember 2024 7:20amSeptember 2024 9:11am4.8 10*3/uL3.8-11.6FV[facility] [id number] [address] [facility] [id number] WBC CountSeptember 2024 7:20amSeptember 2024 9:11am4.8 10*3/uL3.8-11.6FV[facility] [id number] [address] [facility] [id number] Blood CountSeptember 2024 7:20amSeptember 2024 9:11am5.04 10*6/uLAbove high normal3.60-5.00[facility] [id number] [address] [facility] [id number] 2024 7:20amSept2024 9:11am 14.5 g/dL11.8-15.4FV[facility] [id number] [address] [facility] [id number] 2024 7:20amSept2024 9:11am 42.9 %34.0-46.4FV[facility] [id number] [address] [facility] [id number] Corpuscular VolumeSeptember 2024 7:20amSept2024 9:11am85.0 tF59-618UmtzniyboParkwood Hospital Ctr [id number] [address] [facility] [address]Jnjs Corpuscular HemoglobinSeptember 2024 7:20amSept2024 9:11am28.8 pg24.7-34.3FVeterans Health [facility] [id number] [address] [facility] [address]Jvov Corpuscular Hemoglobin ConcentSeptember 2024 7:20am Breana 2024 9:11am33.9 g/dL32.0-35.0[facility] [id number] [address] [facility] 68504Wbh Cell Distribution WidthSeptember 2024 7:20amSept2024 9:11am13.2 %11.9-15.3[facility] [id number] [address] [facility] [address]Chjwjvqx CountSept2024 7:20amSept2024 9:44xt045 10*3/aS167-470NvmbwappvParkwood Hospital [facility] [id number] [address] [facility] 15124Pebb Platelet VolumeSept2024 7:20amSept2024 9:11am8.1 fL6.3-10.7FV[facility] [id number] [address] [facility] [address]Hjnvorsoujf (%) (Auto)November 21, 2024 7:20amSept2024 9:11am42.2 %.[facility] [id number] [address] [facility] [address]Namedtqcvuk (%) (Auto)November 21, 2024 7:20amSept2024 9:11am39.1 %.[facility] [id number] [address] [facility] 26551Gssfbagzu (%) (Auto)November 21, 2024 7:20amSept2024 9:11am12.2 %.[facility] [id number] [address] [facility] 77120Fhigwsgdzld (%) (Auto)November 21, 2024 7:20amSept2024 9:11am5.2 %.[facility] [id number] [address] [facility] 65144Qxpirovfk (%) (Auto)November 21, 2024 7:20amSept2024 9:11am1.3 %.[facility] [id number] [address] [facility] 396[address]Iotyebwcs RBC Relative Count (auto)November 21, 2024 7:20am November 21, 2024 9:11am0.1 /100{WBC}0-0.5[facility] [id number] [address] [facility] 67871Axapdnmxvdb # (Auto)November 21, 2024 7:20amSept2024 9:11am2.0 10*3/uL1.8-7.7[facility] [id number] [address] [facility] [address]Cmmkijwtfcb # (Auto)November 21, 2024 7:20amSeptember 2024 9:11am1.9 10*3/uL1.00-4.8[facility] [id number] [address] [facility] [address]Ovsjlfuaw # (Auto)November 21, 2024 7:20amSeptember 2024 9:11am0.6 10*3/uL0.0-0.8[facility] [id number] [address] [place] [id number] # (Auto)November 21, 2024 7:20amSeptember 2024 9:11am0.2 10*3/uL0.0-0.45[facility] [id number] [address] [place] [id number] # (Auto)November 21, 2024 7:20amSeptember 2024 9:11am0.1 10*3/uL0.0-0.2[facility] [id number] [address] [facility] [address]Bogse ColorSeptember 2024 7:20amSeptember 2024 9:09am Light-yellowYellowParkwood Hospital Ctr [id number] [address] [facility] 297[address]Brfdb ColorSeptember 2024 11:44amSeptember 2024 1:07pmColorlessYelCleveland [facility] [id number] [address] [facility] [address]43[address]Wrcqx AppearanceSeptember 2024 7:20amSeptember 2024 9:09amClearClearParkwood Hospital [facility] [id number] [address] [facility] [address]Jkybh AppearanceSeptember 2024 11:44amSeptember 2024 1:07pmClearClearParkwood Hospital [facility] [id number] [address] [facility] 16487Ovgfp Specific GravitySeptember 2024 7:20amSeptember 2024 9:09am1.0111.001-1.030[facility] [id number] [address] [facility] 11882Jiuxa Specific GravitySeptember 2024 11:44amSeptember 2024 1:07pm1.0041.001-1.030[facility] [id number] [address] [facility] 85605Tcwwg pHSeptember 2024 7:20amSeptember 2024 9:09am7.5 5.0-9.0[facility] [id number] [address] [facility] 19191Gfqkb pHSeptember 2024 11:44amSeptember 2024 1:07pm 6.55.0-9.0[facility] [id number] [address] [facility] 14871Kfblk Leukocyte EsteraseSeptember 2024 7:20amSeptember 2024 9:09amNegativeNegativeParkwood Hospital Ctr [id number] [address] [facility] 54889Hkarr Leukocyte EsteraseSeptember 2024 11:44amSeptember 2024 1:07pmNegativeNegativeParkwood Hospital [facility] [id number] [address] [facility] 05291Rwvlp NitriteSeptember 2024 7:20amSeptember 2024 9:09amNegativeNegativeParkwood Hospital [facility] [id number] [address] [facility] [address]Asjmd NitriteSeptember 2024 11:44amSeptember 2024 1:07pmNegativeNegativeParkwood Hospital [facility] [id number] [address] [facility] 45357Grwnk ProteinSeptember 2024 7:20amSeptember 2024 9:09amNegative mg/dLNegativeParkwood Hospital [facility] [id number] [address] [facility] 25672Ghkmz ProteinSeptember 2024 11:44amSeptember 2024 1:07pmNegative mg/dLNegativeParkwood Hospital [facility] [id number] [address] [facility] 68106Luqwi Glucose (UA)November 21, 2024 7:20amSeptember 2024 9:09amNormal mg/dLNormalParkwood Hospital Ctr [id number] [address] [facility] 65123Cyfup Glucose (UA)December 05, 2024 11:44amSeptember 2024 1:07pmNormal mg/dLNormalParkwood Hospital [facility] [id number] [address] [facility] [address]38[address]Aqahp KetonesSeptember 2024 7:20amSeptember 2024 9:09amNegativeNegativeParkwood Hospital [facility] [id number] [address] [facility] 79265Hxmcn KetonesSeptember 2024 11:44amSeptember 2024 1:07pmNegativeNegativeParkwood Hospital [facility] [id number] [address] [facility] 65457Pnkoa UrobilinogenSeptember 2024 7:20amSeptember 2024 9:09amNormal mg/dLNormalParkwood Hospital C[facility] [id number] [address] [facility] 640[address]Tezdp UrobilinogenSeptember 2024 11:44amSeptember 2024 1:07pmNormal mg/dLNormalParkwood Hospital [facility] [id number] [address] [facility] 77665Bdiuq BilirubinSeptember 2024 7:20amSeptember 2024 9:09amNegativeNegativeParkwood Hospital [facility] [id number] [address] [facility] 53172Kkvcd BilirubinSeptember 2024 11:44amSeptember 2024 1:07pmNegativeNegativeParkwood Hospital [facility] [id number] [address] [facility] [address]53[address]Ctzsz Occult BloodSeptember 2024 7:20amSeptember 2024 9:09amNegativeNegativeParkwood Hospital [facility] [id number] [address] [facility] 25600Xzmsg Occult BloodSeptember 2024 11:44amSeptember 2024 1:07pmNegativeNegativeFirParma Community [facility] [id number] [address] [facility] [address]14[address]Jkrkgfi LevelSeptember 2024 7:20amSeptember 2024 9:24am99 mg/wU95-129XOH recommended reference rangeRandom Glucose Reference Range is dependent on time and content of last meal. Glucose of more than 200 mg/dL in a nonstressed, ambulatory subject supports the diagnosisof Diabetes Mellitus.[facility] [id number] [address] [facility] 11462Ntoaf Urea NitrogenSeptember 2024 7:20amSeptember 2024 9:24am9 mg/dL7-25[facility] [id number] [address] [facility] 10123DmbzhgbmtxCmdoghtmh 2024 7:20amSeptember 2024 9:24am 0.65 mg/dL0.60-1.20[facility] [id number] [address] [facility] 32195Fnilvvhtq GFR (CKD-EPI)November 21, 2024 7:20amSeptember 2024 9:24am> 60.0 mL/MinParkwood Hospital Ctr [id number] [address] [place] [id number] LevelSeptember 2024 7:20amSeptember 2024 9:09bj271 mmol/S492-438IlxkfuikgParkwood Hospital Ctr [id number] [address] [facility] 795[address]Kjnkzxanh LevelSeptember 2024 7:20amSeptember 2024 9:24am4.6 mmol/L3.5-5.1[facility] [id number] [address] [facility] 48675Cjnorwzh LevelSeptember 2024 7:20amSept2024 9:72jl867 mmol/J62-839NjziiwxklParkwood Hospital [facility] [id number] [address] [facility] 08327Vvejuy Dioxide LevelSeptember 2024 7:20amSept2024 9:24am29.7 mmol/L21.0-31.0[facility] [id number] [address] [facility] 34868Crtqh GapSeptember 2024 7:20amSeptember 2024 9:24am 9.9 mEq/L6.0-15.0[facility] [id number] [address] [facility] 62823Hkwawdh LevelSeptember 2024 7:20amSeptember 2024 9:24am9.6 mg/dL8.6-10.3[facility] [id number] [address] [facility] 677[address]Mqryn ProteinSeptember 2024 7:20amSeptember 2024 9:24am6.7 g/dL6.4-8.9[facility] [id number] [address] [facility] [address]KuntufrCcogsqnte 2024 7:20amSeptember 2024 9:24am4.7 g/dL3.5-5.7[facility] [id number] [address] [facility] 42765XnxzscesVkuvowkcm 2024 7:20amSeptember 2024 9:24am2.0 g/dLParkwood Hospital Ctr [id number] [address] [facility] [address]50[address]Djqznrz/Globulin RatioSeptember 2024 7:20amSeptember 2024 9:24am2.4FV[facility] [id number] [address] [facility] 35142Tywbm BilirubinSeptember 2024 7:20amSeptember 2024 9:24am0.6 mg/dL0.3-1.0[facility] [id number] [address] [facility] 974[address]Imeneyelh Amino Transf (AST/SGOT)November 21, 2024 7:20am November 21, 2024 9:24am27 U/N47-45YmrmyjtmbParkwood Hospital Ctr [id number] [address] [facility] 50696Auwjojp Aminotransferase (ALT/SGPT)November 21, 2024 7:20am November 21, 2024 9:24am26 U/L7-52[facility] [id number] [address] [facility] 808[address]Oeuiafhr PhosphataseSeptember 2024 7:20amSeptember 2024 9:24am88 U/O01-035XihdfppljParkwood Hospital Ctr [id number] [address] [facility] 50106Oknf LevelSeptember 2024 7:20amSeptember 2024 9:24am 126 ug/eD42-856JadiftnuqParkwood Hospital [facility]tr [id number] [address] [facility] 57977Lhgxc Iron Binding CapacitySeptember 2024 7:20amSept2024 9:81gd712 ug/vO229-357SrgmfkchbParkwood Hospital Ctr [id number] [address] [facility] 17093Lwjl SaturationSeptember 2024 7:20amSept2024 9:24am40.8 %20-50[facility] [id number] [address] [facility] 71027VonilylkektHxnmifaax 2024 7:20amSept2024 9:24am 221 mg/aF952-208AtqxpbrzrParkwood Hospital [facility] [id number] [address] [facility] 98141TmbtqzatIayxksjtr 2024 7:20amSept2024 9:44am 68.8 ng/mL11.0-306.8[facility] [id number] [address] [facility] 39588Hdxgptaqpwp LevelSeptember 2024 7:20amSept2024 9:22rg375 mg/cV548-499Poxl less than 200 mg/dl low riskChol 201-239 mg/dl borderline riskChol 240 mg/dl and greater high riskParkwood Hospital Ctr [id number] [address] [facility] [address]13[address]MGY CholesterolSeptember 2024 7:20amSept2024 9:24am57 mg/dG43-38BDA CHOL ATP-III CLASSIFICATION Cardiovascular RiskHDL > or equal to 60 mg/dL LOWHDL < 40 mg/dL HIGHParkwood Hospital Ctr [id number] [address] [facility] 627[address]Jqqfhooufsaky LevelSeptember 2024 7:20amSept2024 9:33hf832 mg/dL0-149TRIG ATP III CLASSIFICATIONTRIG less than 150 mg/dL NormalTRIG 150-199 mg/dL Borderline highTRIG 200-500 mg/dL High TRIG greater than 500 mg/dL Very highStandard traceable to the Center for Disease Conrtrol and Prevention (CDC) test method.[facility] [id number] [address] [facility] 11395WJL Cholesterol, CalculatedSeptember 2024 7:20amSept2024 9:24am64 mg/dL0-100LDL ATP III CLASSIFICATIONLDL less than 100 mg/dL OptimalLDL 100-129 mg/dL Near or above hulacjmRFS575-273 mg/dL Borderline highLDL 160-189 mg/dL HighLDL greater than 189 mg/dL Very highParkwood Hospital Ctr [id number] [address] [facility] 71286KTXA CholesterolSeptember 2024 7:20amSept2024 9:24am25 mg/dLParkwood Hospital Ctr [id number] [address] [facility] 76613Cvtipncdudq/HDL RatioSept2024 7:20amSept2024 9:24am2.6<5.0[facility] [id number] [address] [facility] 1794584-Ameksxf Vitamin D TotalSept2024 7:20amSept2024 9:50am62.3 ng/tV74-016CPZQZDS D STATUS 25(OH)VITAMIN D RANGE (ng/mL) Deficient <20 Insufficient 20 to <30Sufficient 30 to 100Reference: Sarah MF,Ligia NC, Skylar BALDERAS, et al. Evaluation,treatment, and prevention of vitamin D deficiency; an Endocrine Society clinical practice guideline. JCEM. 2010; 96(7):1911-30.[facility] [id number] [address] [facility] 25395Rfvcksiy Creatinine Clearance (ChemSept2024 7:20am November 21, 2024 9:24amN/AFVeterans Health [facility] C[facility] [id number] [address] [facility] 8[address]Yrjaylzpsw B7tJqizogrlb2024 7:20amSept2024 9:49am5.5 %4.3-5.6Increased risk for diabetes: 5.7 - 6.4diabetes: >6.4glycemic control for adults with diabetes: <7.0[facility] [id number] [address] [facility] 78874Zgzywmzqj Average GlucoseSeptember 2024 7:20amSept2024 9:05ia353 mg/dLParkwood Hospital Ctr [id number] [address] [facility] 89851Qgjbudd LevelSept2024 7:20amSeptember 2024 6:07am21.2 u[iU]/mL2.6-24.9Performed at: - [facility] [id number] Director: Jourdan Gonzales PhD, Phone: [phone] [facility] Microbiology Results Procedure Source Result Collection Date/Time Result Date/Time Result Comment Performing Site Blood Culture Blood, Left Antecubital NO GROWTH 5 DAYS November 23, 2024 1:28pm November 28, 2024 1:42pm [facility] [id number] [address] [facility] 22640Rkfeo CultureBlood, Right AntecubitalNO GROWTH 5 DAYSSept2024 1:33pmSept2024 1:42pmParkwood Hospital C[facility] [id number] [address] [facility] 158[address]Tiaai CultureUrineStreptococcus gallolyticusSept2024 8:20amSept2024 8:07amParkwood Hospital [facility] [id number] [address] [facility] 24179Qaeeq CultureUrine, Clean-Voided MidstreamNo Growth 2 Days December 05, 2024 12:44pmSept2024 9:27amParkwood Hospital [facility] [id number] [address] [facility] [address] Vital Signs Vital Reading Result Reference Range Collection Date/Time Height 61 [in_i] December 02, 2024 7:94wuGibipa53.30 kgSept2024 7:08amBody Htsodjcfjeo39.6 [degF]97.6-99.0Sept2024 7:08amHeart Rate77 /min 60-100Sept2024 7:08amOxygen saturation by Pulse %95-100 December 02, 2024 7:08amBP Hbjcekrt702 mm[Hg]100-140Sept2024 7:08amBP Uxgooafkj52 mm[Hg]60-100Sept2024 7:08amBMI (Body Mass Index)29.2 kg/k9Ppvbvzudt2024 7:61aoCxqrwi37 [in_i]January 23, 2025 1:06bdDaiofk64.13 kgJanuary 23, 2025 1:44pmBody Qdirxrftvgh89.2 [degF] 97.6-99.0January 23, 2025 1:44pmHeart Rate72 /dly43-595RqbalymmJanuary 23, 2025 2:08pmOxygen saturation by Pulse chgvttuc77 %95-100January 23, 2025 1:44pmBP Blnnsjbb751 mm[Hg]100-140January 23, 2025 2:08pmBP Cabtzkyxo01 mm[Hg]60-100 January 23, 2025 2:08pmBMI (Body Mass Index)27.9 kg/j6IctycyifJanuary 23, 2025 1:50wpGuihdo75 [in_i]January 27, 2025 7:94hqLhzzyg23.03 kgJanuary 27, 2025 7:27amHeart Rate63 /tlh27-716NnbtbtvlJanuary 27, 2025 10:18amRespiratory rate18 /min 12-24January 27, 2025 10:18amOxygen saturation by Pulse bdfzijzl381 %95-100 January 27, 2025 10:18amBP Znzdrpgv484 mm[Hg]100-140January 27, 2025 10:18amBP Soisaqsxe80 mm[Hg]60-100January 27, 2025 10:18am Advance Directives Advance Directive Response Recorded Date/ Time Advance Directives No August 19 7:46am Insurance Providers Guarantor [place] Address [address] [facility] [address]Jjzszgi Info.Home Phone: Payer Group Member ID Coverage Type Subscriber Relationship to Subscriber Effective Date Expiration Date Kellen [facility] Id: [id number] J Dickman Id: [id number] [address] [facility] [address] Home Phone: Email: [email or web address] Encounters Encounter Location(s) Arrival/Admit Date Discharge/Departure Date Discharge/Departure Disposition Provider(s) Departed Clinical -Lab [facility] November 21, 2024 8:16am November 21, 2024 8:17am Discharged to home care or self care (routine discharge) Florentino Mabry DO Non-patient / Non-visit -[facility] November 23, 2024 1:02pm Agustin Angulo Clinical-Lab [facility]2024 1:15pmSept2024 1:16pmDischarged to home care or self care (routine discharge)Keena Angulokeotaed Physician/Provider Office Visit- [facility] Family Medicine [facility] 2024 8:01amSeptember 2024 8:51amDischarged to home care or self care (routine discharge)Agustin Angulo Clinical-Lab [facility] 2024 12:37pm December 05, 2024 12:38pmDischarged to home care or self care (routine discharge)Keena Angulokeotalisha Clinical-ElectrodiagnosticsOctober 2024 7:33amOctober 2024 7:34amDischarged to home care or self care (routine discharge)Killian Angulo-patient / Gzf-gtype-[facility] 2024 6:25amDaviKeena Fernandeskeotaed Physician/Provider Office Visit-[facility] Family Medicine [facility] 2024 1:58pmNov2024 2:51pmDischarged to home care or self care (routine discharge)Killian Angulo-patient / [facility] January 27, 2025 7:01amAmilcar Dalton MD Recent [...] 23 025 1:58pm Assessments Author Florentino Mabry [facility] 2024 7:57amThe above note written by ___Iain Kenyon____ acting as human recorder, note dictated by Dr. Simmons .I performed the above HPI, ROS, and Examination. I formulated and dictated the treatment plan and was present for entire encounter. Florentino Mabry D.O. Author Florentino Mabry [facility] 2024 2:56pmThe above note written by ___Iain Kenyon____ acting as human recorder, note dictated by Dr. Simmons .I performed the above HPI, ROS, and Examination. I formulated and dictated the treatment plan and was present for entire encounter. Florentino Mabry D.O. Plan of Treatment Author Iain Kenyon [facility] 2024 7:49amShe did not have any urinary [...] her blood pressure closely. Author Iain Kenyon [facility] DaytonAuthoredNovember 2024 2:47pmDue to the swelling she voices that Dr. Hedrick put her on Valsartan. We discussed whether or not she is on Amlodipine, she does not currently believe she is taking this medication and does not have it on her med list. She did contact Dr. Hedrcik this morning to let him know she was at the ER yesterday 01/22/25 for evaluation of her blood pressure but has not heard from him. She was told by [facility] that it could be 2-3 days before [...] done. 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 [...] NOT operate machinery such as power tools, PopJaxn mowers, MOOIwers, sewing machines, etc. for 24 hours. - [...] Follow up with PCP. - Office number [phone].
--- OUTSIDE RECORDS SUMMARY | 2025-02-01 20:11 | XMS_ITS | Encounter Summary ---
Author Organization [facility] Address [address] [place] [address] Care Team Providers Care Back End Engineer Name Role Phone Florentino Mabry MD Primary Care Provider [phone] Bharath Bajwa DO Unavailable Anushka Helms DO Unavailable [phone] Encounter Details DateTypeDepartmentCare Team (Latest Contact Info)Hfbhymcydbp47/11/2025Travel Social History Tobacco UseTypesPacks/DayYears UsedDateSmoking Tobacco: NeverSmokeless Tobacco: NeverAlcohol UseStandard Drinks/WeekCommentsYes6 (1 standard drink = 0.6 oz pure alcohol)caffeine intake : noneCommentsUnknownSex and Gender Information ValueDate RecordedSex Assigned at EyykaNwvqnk16/08/2023 9:47 AM ESTLegal Sex Orimhi8105/28/2022 6:53 PM EDTGender VfnfcsrvLhnxrp45/08/2023 9:47 AM ESTSexual NswgcdaplumKdcxtkvr89/08/2023 9:47 AM ESTdocumented as of this encounter Plan of Treatment Not on file documented as of this encounter Visit Diagnoses Not on filedocumented in this encounter Care Teams Team MemberRelationshipSpecialtyStart DateEnd Date Florentino Mabry MD [address] [place] [address] [place] [address] PCP - GeneralFamily Xkrmhthb63/15/23 Bharath Bajwa DO [address] [place] [address] Gnioiiiirbrohc38/1/23 Anushka Helms DO [address] [address] Referring PhysicianNeurology1documented as of this encounter
--- OUTSIDE RECORDS SUMMARY | 2025-02-01 20:11 | XMS_ITS | Encounter Summary ---
Author Organization [facility] Address [address] [place] [address] Care Team Providers Care Hl7 Developer Name Role Phone Florentino Mabry MD Primary Care Provider [phone] Bharath Bajwa DO Unavailable [phone] Anushka Helms DO Unavailable [phone] Encounter Details DateTypeDepartmentCare Team (Latest Contact Info)Xdcaaheyyrb10/10/2025Travel Social History Tobacco UseTypesPacks/DayYears UsedDateSmoking Tobacco: NeverSmokeless Tobacco: NeverAlcohol UseStandard Drinks/WeekCommentsYes6 (1 standard drink = 0.6 oz pure alcohol)caffeine intake : noneCommentsUnknownSex and Gender Information ValueDate RecordedSex Assigned at EkqqeKjgjmm19/08/2023 9:47 AM ESTLegal Sex Cjvhpg3405/28/2022 6:53 PM EDTGender VtkwwavxDpqjlg25/08/2023 9:47 AM ESTSexual MejlygcexzhPseakbiv30/08/2023 9:47 AM ESTdocumented as of this encounter Plan of Treatment Not on file documented as of this encounter Visit Diagnoses Not on filedocumented in this encounter Care Teams Team MemberRelationshipSpecialtyStart DateEnd Date Florentino Mabry MD [address] [place] [address] [place] [address] PCP - GeneralFamily Ludkbxdi12/15/23 Bharath Bajwa DO [address] [place] [address] Rutcskytbdemwh87/1/23 Anushka Helms DO [address] [address] Referring PhysicianNeurology1documented as of this encounter
--- OUTSIDE RECORDS SUMMARY | 2025-02-01 20:11 | XMS_ITS | Encounter Summary ---
Author Organization [facility] Address [address] [place] [address] Phone Care Team Providers Care Services Delivery Driver Name Role Phone Elainejessica Florentino Eleanor ANTHONY Primary Care Provider [phone] Reason for Visit * ReasonOnset DateCommentsAdvice Only01/23/2025 Encounter Details DateTypeDepartmentCare Team (Latest Contact Info)Qgvpemgessa90/10/2025Telephone [place] [id number] [address] [address] Desirae Mora LPN Advice Only Social History Tobacco UseTypesPacks/DayYears UsedDateSmoking Tobacco: NeverSmokeless Tobacco: NeverAlcohol UseStandard Drinks/WeekCommentsYes0 (1 standard drink = 0.6 oz pure alcohol)rarelyCommentsUnknownSex and Gender InformationValueDate RecordedSex Assigned at BirthNot on fileLegal LdrWlsyxj52/26/2022 10:45 AM EST Gender IdentityNot on fileSexual OrientationNot on filedocumented as of this encounter Miscellaneous Notes * Addendum Note - Ariella Carrasquillo LPN - 01/24/2025 11:48 AM ESTAddended by: ARIELLA CARRASQUILLO on: 01/24/2025 11:48 AM Modules accepted: Orders * Telephone Encounter - Ariella Carrasquillo LPN - 01/24/2025 11:48 AM EST Spoke with patient, agrees with treatment plan. Med list updated. * Telephone Encounter - Desirae Mora LPN - 01/24/2025 11:41 AM EST Attempted to reach patient. Message left * Telephone Encounter - Ariella Carrasquillo LPN - 01/24/2025 8:47 AM EST Patient returned call this morning, stating Dr. Mabry started her on hydrochlorothiazide 25mg daily to go with Valsartan, and if it successfully decreases BP, he would prescribe the combination. Patient had not taken BP yet this morning. Patient wanted to inform you that she has an appt with Dr. Melgar today to discuss/schedule hernia through diaphragm , and states it is pretty severe and [place] most likely [place] in [place] for[place]air. * Telephone Encounter - Desirae Mora LPN - 01/23/2025 3:37 PM EST Detailed message left on a.m. * Telephone Encounter - Desirae Mora LPN - 01/23/2025 8:10 AM EST Patient states she was at [place] ER yesterday for HTN. B/p yesterday was 188/110. B/p remains elevated. Inquired about a visit with Dr. Deb Hedrick MD for advised/medication review. 09/2025 visit pending. Patient states no medication changes were made. Today 169/110 reading. Only complaint is dry mouth and mild headache. Medications reviewed. Patient is weaning off Klonopin for restless legs. Will take last dose today Was also dx with hiatal hernia. ER advised this could be contributing factor. To Dr. Deb Hedrick MD FAX [phone] documented in this encounter Plan of Treatment DateTypeDepartmentCare Team (Latest Contact Info)Ttqmasipfbg05/08/2026 8:40 AM EDTOffice Visit [address] [place] [address] Deb Hedrick MD [address] [facility] [place] [address] documented as of this encounter Visit Diagnoses Not on filedocumented in this encounter Additional Health Concerns AssessmentNoted TimeA fall risk assessment has been completed for the patient 09/21/2024 9:04 AM EDTdocumented as of this encounter Care Teams Team MemberRelationshipSpecialtyStart DateEnd Date Florentino Mabry DO PCP - General05/23/20documented as of this encounter
--- OUTSIDE RECORDS SUMMARY | 2025-02-01 20:11 | XMS_ITS | Patient Health Record ---
Author Organization [facility] Address [address] [place] [address] Care Team Providers Care Sample Shoe Inspector And Reworker Name Role Phone Dr. Florentino Mabry Primary Care Provider Alyssa Norman Unavailable [phone] Allergies No Known Allergies Reason For Referral [...] Status W/U Status Risk Notes Problem Hypertension (26300930) Hypertension (I10 ) ActiveconfirmedProblemSupraventricular tachycardia (1825091)SVT (supraventricular tachycardia) (I47.10)ActiveconfirmedProblemHyperlipidemia (25860695)Hyperlipidemia (E78.5)ActiveconfirmedProblemGastroesophageal reflux disease (846933200)GERD (gastroesophageal reflux disease) (K21.9)Activeconfirmed ProblemRestless legs (73039714)Restless leg (G25.81)ActiveconfirmedProblem Arthritis (9507637)Arthritis (M19.90)ActiveconfirmedProblemObese class I (finding) (080337590926159)Obesity (BMI 30.0-34.9) (E66.9)Activeconfirmed Vital Signs Temperature 97.1 degrees Fahrenheit 01/14/2025 Respiratory Rate16 /min01/14/20253600Bhivwnvk9769/01/2025lood pressure qgfrguzcn77 mm Hg01/14/20252282Xzexjr23 in01/14/2025lood pressure zkoqifet576 mm Hg01/14/2025 Endpfq945 lbs103/16/2024BMI28.34 kg/m201/14/2025 Encounters Encounter Location Date Provider Diagnosis [address] [place] [address] 01/14/2025 Alyssa Eli Acute non-recurrent pansinusitis J01.40 [...] End Date [employer] MED[employer]ARE HMO [address] [place] [address] [id number] [facility] [place] [employer] - patient is the insured 4 Medical (General) History Medical History History ICD Code Hypertension I10 SVT (supraventricular tachycardia) I47.1 0 Hyperlipidemia E78.5 GERD (gastroesophageal reflux disease) K 21.9 Restless leg G25.81 Arthritis M19.90 Surgical History Surgery Date(Month/Year) shoulder knee replacement - righthysterectomycholecystectomyHospitalization History Reason Date(Month/Year) surgeries
--- OUTSIDE RECORDS SUMMARY | 2025-02-01 20:11 | XMS_ITS | Clinical Summary ---
Author Organization [facility] Address [address] [place] [address] Phone Care Team Providers Care Acoustical Tile Carpenters Supervisor Name Role Phone Florentino Mabry DO Primary Care Provider [phone] Allergies No known active allergies Medications MedicationSigDispense [...] by mouth once daily. 90 tablet ctive hydroCHLOROthiazide (HYDRODiuril) 25 mg tablet Take 1 tablet (25 mg) by mouth once daily.Active Active Problems ProblemNoted DateDiagnosed DateBMI 29.0-29.9,adult09/22/2023Never smoked tobacco 09/22/2023Essential jqijrbqubwrl71/15/2024Mixed kbtiacofqbznyh22/15/2024 Supraventricular ebhgvwmjlir62/15/2024heumatoid mggphvayo43/15/2024 Encounters DateTypeDepartmentCare XszfUvfgbzbhdxq65/10/2025Telephone [facility] [address] [facility] [address] [place] [address] Desirae Mora LPN Advice Only01/09/2025Scanned Document [facility] [address] [place] [address] Scanning, Generic Provider from Last 3 Months Immunizations ImmunizationAdministration DatesNext DueFlu vaccine, trivalent, preservative free, HIGH-DOSE, age 65y+ (Fluzone)12/14/2018Influenza, Wrnfrtjcyny40/01/2018, 11/14/2016,12/15/2015Pneumococcal conjugate vaccine, 13-valent (PREVNAR 13) 02/14/2016Pneumococcal polysaccharide vaccine, 23-valent, age 2 years and older (PNEUMOVAX 23)02/13/2006Zoster, live03/16/2005 Family History Medical HistoryRelationNameCommentscabgFatherAtrial fibrillationMothermalignant neoplasmMotherRelationNameStatusCommentsFatherMother Social History Tobacco UseTypesPacks/DayYears UsedDateSmoking Tobacco: NeverSmokeless Tobacco: Never Tobacco Cessation:Counseling Given: Not Answered Alcohol UseStandard Drinks/WeekCommentsYes0 (1 standard drink = 0.6 oz pure alcohol)rarelyCommentsUnknownSex and Gender InformationValueDate RecordedSex Assigned at BirthNot on fileLegal UtbUtywyh55/26/2022 10:45 AM EST Gender IdentityNot on fileSexual OrientationNot on file Last Filed Vital Signs Vital SignReadingTime TakenCommentsBlood Qfndmqvk058/7007 9:05 AM EDT Ytrpq9287/09/2025 9:05 AM EDTTemperature--Respiratory Rate--Oxygen Saturation-- Inhaled Oxygen Concentration--Gyrxfe83.8 kg (156 lb)09/21/2024 9:05 AM EDTHeight 154.9 cm (5' 1 )09/21/2024 9:05 AM EDTBody Mass Index29.48009/21/2024 9:05 AM EDT Plan of Treatment DateTypeDepartmentCare Team (Latest Contact Info)Uzdfjjjrpol19/08/2026 8:40 AM EDTOffice Visit [address] [place] [address] Deb Hedrick MD [address]03 [facility] 2, [facility] [address] [place] [address] Health MaintenanceDue DateLast DoneCommentsLipid Panel1946Medicare Annual Wellness Visit (AWV)1946Diabetes Ilqwymkkt92/12/1964Hepatitis C Screening 01/26/1964Bone Density Scan2011Zoster Vaccines (3 of 3)02/08/2019 12/14/2018, 12/09/2018, 03/16/2005RSV High Risk: (Elderly (60+) or Population) (1 - 1-dose 75+ series)1DTaP/Tdap/Td Vaccines (2 - Td or Tdap)/08/2011Influenza Vaccine (#1), 01/07/2020, 12/14/2018, Additional history existsCOVID-19 Vaccine ( season) 2024Hepatitis A VaccinesAged Out02/17/2012, 08/20/2011No longer [...] Team MemberRelationshipSpecialtyStart DateEnd Date Florentino Mabry DO [facility] - General05/23/20
--- OUTSIDE RECORDS SUMMARY | 2025-02-01 20:12 | XMS_ITS | Clinical Summary ---
Author Organization [facility] Address [facility] [place] [address] Care Team Providers Care Tourist Camp Attendant Name Role Phone Florentino Mabry DO Primary Care Provider [phone] Allergies No known active allergies Medications MedicationSigDispense [...] Active Problems ProblemNoted DateDiagnosed DateCannabis use without luqrrufghwjk88/06/2025 Assessment & Plan (05/19/2024 7:14 AM EST): Assessment: uses edibles to help her sleep. Agrees to abstain until after surgery Iron deficiency xpbrop1305/17/2024 Assessment & Plan (05/18/2024 12:24 PM EST): Assessment: Stable. Denies bleeding. Labs 05/12/24 Hgb 13.5 Hct 39.1 Ktphxntysyobfi02/04/2025 Assessment & Plan (05/18/2024 12:22 PM EST): Assessment: stable with current medication regimen Obesity (BMI 30.0-34.9)09/22/2023 Assessment & Plan (05/18/2024 12:25 PM EST): Assessment: Body mass index is 32.91 kg/m??. Rheumatoid wxaokvmhc62/15/2024 Assessment & Plan (05/18/2024 12:24 PM EST): Assessment: stable with current medication regimen Aybfpjdnss07/28/2023Essential rgtumcmmsbjr81/28/2023 Assessment & Plan (05/18/2024 12:22 PM EST): Assessment: stable and compliant with current medications Last 5 Encounter BP Readings: Date: BP: 05/18/2024 132/85 11/25/2023 122/87 08/17/2023 130/79 08/07/2022 124/71 Gastroesophageal reflux tltgost2602/10/2023 Assessment & Plan (05/18/2024 12:23 PM EST): Assessment: Managed and stable with current medication. Denies difficulty swallowing or any bleeding. Vczfylwoa51/28/2023 Assessment & Plan (05/18/2024 12:22 PM EST): Assessment: stable with current medication regimen Paroxysmal SVT (supraventricular tachycardia)02/10/2023 Assessment & Plan (05/18/2024 12:23 PM EST): Assessment: stable, asymptomatic, RRR today Follows with cardiology, Dr. Deb Hedrick. Was optimized for knee surgery per 03/18/24 telephone encounter Resolved Problems ProblemNoted DateDiagnosed DateResolved UtqxMgjx60 Social History Tobacco UseTypesPacks/DayYears UsedDateSmoking Tobacco: NeverSmokeless Tobacco: Never Tobacco Cessation:Counseling Given: Not Answered Alcohol UseStandard Drinks/WeekCommentsYes0 (1 standard drink = 0.6 oz pure alcohol)a few times a week a shot of red hot wisky Area Deprivation IndexAnswer Date RecordedNational Score (1-100), lower number is lower lecc708412/10/2023State Score (1-10), lower number is lower bjcv712ata from: https://www.neighborhoodatlas.[facility].edu/. Last address used for slawpkmgwpl[address]12/10/2023CommentsNoSex and Gender Information ValueDate RecordedSex Assigned at ZqvmyLeazur54/07/2024 3:46 PM EDTLegal Sex Ihbycz3003/27/2015 11:46 AM ESTGender WbgerhdkGukafa19/07/2024 3:46 PM EDTSexual VjtdlkbquxhMmfodwyu35/07/2024 3:46 PM EDT Last Filed Vital Signs Vital SignReadingTime TakenCommentsBlood Ypmxjmkb937/78005/20/2024 8:30 AM EST Bguzr6877/07/2025 8:30 AM DBCFgzpphweyyz05.7 ??C (98 ??F)05/20/2024 8:30 AM EST Respiratory Cugd8910/09/2024 8:30 AM ESTOxygen Ounnrbtchu09%05/20/2024 8:30 AM ESTInhaled Oxygen Concentration--Okfzgv34 kg (163 lb 2.3 oz)05/20/2024 6:54 AM SYTCfbbsg535.5 cm (5' 2 )05/20/2024 6:54 AM ESTBody Mass Index29.8405/20/2024 6:54 AM EST Plan of Treatment Health MaintenanceDue DateLast DoneCommentsAnnual PCP Team Chronic Disease Visit 01/26/1964Anxiety Thuydawnd09/12/1964Bone Density Alnocfurd09/12/2011Shingrix Vaccine (3 of 3), 12/09/2018, 03/16/2005RSV Vaccine (1 - 1- dose 75+ series)2021TaP,Tdap,Td Vaccine (2 - Td or Tdap)08/19/2021 08/20/2011dvance Directive Szsbsfkzxk87/01/2025Medicare Advantage Annual Wellness Visit5Covid-19 Vaccine ( - season)2024Influenza Vaccine (#1)510/, 01/07/2020, 12/14/2018, Additional history existsDiabetes Cxmcvnjno31/4Pneumococcal Vaccine: 50+Completed 02/14/2016, 12/18/2014, 03/21/2013, Additional history exists Insurance Care Teams Team MemberRelationshipSpecialtyStart DateEnd Date Florentino Mabry DO [address] [place] [address] [facility]/27/15
--- OUTSIDE RECORDS SUMMARY | 2025-02-01 20:12 | XMS_ITS | Clinical Summary ---
Author Organization [facility] Address [address] [facility], [address] [place] [address] Care Team Providers Care Rehabilitation Psychologist Name Role Phone Florentino Mabry DO Primary Care Provider Unavail able Social History Tobacco UseTypesPacks/DayYears UsedDateSmoking Tobacco: Never Assessed CommentsUnknownSex and Gender InformationValueDate RecordedSex Assigned at Not on fileLegal GdpZgfcfh32/16/2019 11:11 AM EDTGender IdentityNot on file Sexual OrientationNot on file Plan of Treatment Not on file Insurance Care Teams Team MemberRelationshipSpecialtyStart DateEnd Date Florentino Mabry DO [facility]
--- OUTSIDE RECORDS SUMMARY | 2025-02-01 20:12 | XMS_ITS | Encounter Summary ---
Author Organization [facility] Address [address] [place] [address] Care Team Providers Care Facilities Administrator Name Role Phone Florentino Mabry MD Primary Care Provider [phone] Bharath Bajwa DO Unavailable Anushka Helms DO Unavailable [phone] Reason for Visit * ReasonOnset DateCommentscologuard mditejy7301/19/2025 Encounter Details DateTypeDepartmentCare Team (Latest Contact Info)Fjnljcupxad67/06/2025Telephone [facility] [address] [facility] [address] [place] [address] Francisca Fuller LPN [address]03 [facility] [address] [place] [address] cologuard results Social History Tobacco UseTypesPacks/DayYears UsedDateSmoking Tobacco: NeverSmokeless Tobacco: NeverAlcohol UseStandard Drinks/WeekCommentsYes6 (1 standard drink = 0.6 oz pure alcohol)caffeine intake : noneCommentsUnknownSex and Gender Information ValueDate RecordedSex Assigned at VqablDpgsma80/08/2023 9:47 AM ESTLegal Sex Ldlrnr8705/28/2022 6:53 PM EDTGender RlertmvfYehivc37/08/2023 9:47 AM ESTSexual HgaqhgcqvbmJircboxr41/08/2023 9:47 AM ESTdocumented as of this encounter [...] Mabry MD [address] [place] [address] [place] [address] PCP - GeneralFamily Gtgdwnhk62/15/23 Bharath Bajwa DO [address] [place] [address] Kyespkvsfmvvil77/1/23 Anushka Helms DO [address] [address] Referring PhysicianNeurology1documented as of this encounter
--- OUTSIDE RECORDS SUMMARY | 2025-02-01 20:12 | XMS_ITS | Clinical Summary ---
Author Organization [facility] Address [address] [place] [address] Care Team Providers Care Port Crane Operator Name Role Phone Florentino Mabry MD Primary Care Provider [phone] Bharath Bajwa Lima DO Unavailable [phone] Anushka Helms DO Unavailable [phone] Allergies Active AllergyReactionsCriticalityNoted GpigCdnqnyleYezfunynm10/15/2023 Other Reaction(s): extreme drowsiness Medications MedicationSigDispense QuantityRefillsLast [...] tablet Take 20 mg by mouth at khmwosa3312/13/2022ctive clonazePAM (KlonoPIN) 0.5 MG tablet Indications:Restless Leg [...] twice a day 60 tablet ctive HYDROcodone-acetaminophen ([place]) 5-325 MG tablet Take 1 tablet by mouth every 8 (eight) hours if zefjxq7503/02/2024ctive predniSONE (Deltasone) 20 MG tablet 03/02/2024ctive valsartan [...] MORNING AND BEFORE BEDTIME 60 capsule 5Active hydroCHLOROthiazide (HYDRODiuril) 25 MG tablet Every dpzqbed46/10/2025Active Active Problems ProblemNoted DateDiagnosed DateHiatal btrfre9401/24/2025Esophageal stricture 01/24/2025Other chest pain01/24/2025Esophageal /11/2025Special screening for malignant neoplasms, colon5Acute right-sided low back pain with right-sided xclnbson35/20/2024aresthesia of skin07/07/2023hronic tension-type headache, not orstmaecsxn13/23/2024nesthesia of skin07/07/2023ain in left hand07/07/2023ain in right hand07/07/20234731Baiouidzqr43/23/2024Chronic GERD02/10/20234957Upcreiytaj79/28/6221Jzkhhrjixhjy95/28/9163Nayzeahfo71/28/2023 Multiple gastric dljnbr2002/10/2023Other xifwqxuqkdrmyz49/28/2023aroxysmal SVT (supraventricular tachycardia)02/10/2023Restless legs02/10/2023rthritis 02/10/20233742Tzmgialcdattfs41/28/2023hondrocalcinosis due to pyrophosphate ovmbgcqp08/14/2023Osteoarthritis of knee01/27/2023resence of right artificial knee joint01/27/2023Sensorineural hearing loss, /14/2023Sudden hearing loss01/27/2023ilateral zxfqiftf64/14/2313Gphjfapd80/14/2023 Encounters DateTypeDepartmentCare PoeyKblutfarwoc97/11/2025 3:45 PM ESTOffice Visit [facility] [address] [place] [phone] Sha Sethi DO Hiatal hernia (Primary Dx); Esophageal stricture; Esophageal dysphagia; Other chest pain01/24/20253551Zrnghk52/10/1292Zqkgsq22/06/2025Telephone [facility] [address] [place] [phone] Francisca Fuller LPN cologuard ltfvoeh9801/02/2025 2:30 PM EDTOffice Visit [facility] [address] [place] [phone] Doni Melgar DO Special screening for malignant neoplasms, colon (Primary Dx)01/02/2025Travel 12/19/2024Travelfrom Last 3 Months Family History Medical HistoryRelationNameCommentsCancerDaughterHeart diseaseFather OsteoarthritisFatherCancerMaternal GrandfatherCancerMotherCancerOtherspouse DiabetesOtherspouseHypertensionOtherspouseMental illnessPaternal Grandfather CancerPaternal GrandmotherBreast cancerNeg HxColon cancerNeg HxOvarian cancerNeg HxPancreatic cancerNeg ZvRwgfbchjRlynMsbafvLodqhbhcEnvwdnc3TckhrzyiTskfpXzrtpj DeceasedMaternal GrandfatherDeceasedMotherDeceasedOtherspouseAlivePaternal GrandfatherDeceasedPaternal GrandmotherDeceasedSisternoneSonAlive Social History Tobacco UseTypesPacks/DayYears UsedDateSmoking Tobacco: NeverSmokeless Tobacco: Never Tobacco Cessation:Counseling Given: Not Answered Alcohol UseStandard Drinks/WeekCommentsYes6 (1 standard drink = 0.6 oz pure alcohol)caffeine intake : noneCommentsUnknownSex and Gender Information ValueDate RecordedSex Assigned at WmfomTftcut24/08/2023 9:47 AM ESTLegal Sex Qshrsr9205/28/2022 6:53 PM EDTGender ZicmftgkEorpeg34/08/2023 9:47 AM ESTSexual GmrdzcmgkytUnieitax73/08/2023 9:47 AM EST Last Filed Vital Signs Vital SignReadingTime TakenCommentsBlood Vygmhjnm827/8408 9:56 AM EDT Pgxpy239507/07/2023 12:41 PM EDTTemperature--Respiratory Rate--Oxygen Saturation 96%07/07/2023 12:41 PM EDTInhaled Oxygen Concentration--Kvvswe63.6 kg (149 lb) 01/24/2025 3:51 PM XQROotjas666.9 cm (5' 1 )01/24/2025 3:51 PM ESTBody Mass Index28.15103/26/2024 3:51 PM EST Plan of Treatment Not on file Procedures Procedure NamePriorityDate/TimeAssociated DiagnosisCommentsLAB COLOGUARD?? COLON CANCER NLXVXOIypcgjh50/30/2025 3:55 PM EDT Special screening for malignant neoplasms, colon from Last 3 Months Results * Cologuard?? colon cancer screening (01/12/2025 3:55 PM EDT)ComponentValueRef RangeTest MethodAnalysis TimePerformed AtPathologist SignatureNONINV COLON CA DNA+OCC BLD SCRN STL-GTUNhebkrhzMaviblaz88/05/2025 8:13 AM [employer] (CLIA #:[id number])Comment: The Cologuard (TM) test was performed on [...] screened with both Cologuard and colonoscopy. (Jesus Kaye et al, N Engl J Med 2014;370(14):3753-7163) The normal value (reference range) for this assay is negative. COLOGUARD RE-SCREENING RECOMMENDATION: Periodic colorectal cancer screening is an important part ofpreventive healthcare for asymptomatic individuals at average risk for colorectal cancer. Followinga negative Cologuard result, the [place] Cancer Society and U.S. Multi-Society Task Force screening guidelines recommend a Cologuard re-screening interval of 3 years. References: [place] Cancer Society Guideline for Colorectal Cancer Screening: https://www.cancer.or g/cancer/wpcln-fossnc-qgbyxy/edhqfehgr-rmmxryazn-dbtxcwu/acs-recommendations.htm karel; Roque BURNETT, Kristina CORDOVA, Baldev JasonK, Colorectal Cancer Screening: Recommendations for Physicians and Patients from the U.S. Multi-Society Task Force on Colorectal Cancer Screening , Am J Gastroenterology 2017; 112:4517-8357. TEST DESCRIPTION: Composite algorithmic analysis of stool [...] screened with both Cologuard and colonoscopy. (Jesus Kaye et al, N Engl J Med 2014;370(14):6253-6246.) Cologuard may produce a false negative or false positive result (no colorectal cancer or precancerous polyp present at colonoscopy follow up). A negative Cologuard test result does not guarantee the absence of CRC or advanced adenoma (pre-cancer). The current Cologuard screening interval is every 3 years. (Australian Cancer Society and U.S. Multi-Society Task Force). Cologuard performance data in a 10,000 patient pivotal study using colonoscopy as the reference method can be accessed at the following location: www.[employer]/results. Additional description of the Cologuard test process, warnings and precautions can be found at www.cologuard.com. Specimen (Source)Anatomical Location / LateralityCollection Method / Volume Collection TimeReceived TimeStool specimen (specimen)01/12/2025 3:55 PM EDT 01/14/2025 2:20 PM EDT Narrative Authorizing ProviderResult TypeResult StatusFredric Lianazkorobert [facility] ORDERABLESFinal ResultPerforming OrganizationAddressCity/State/ZIP CodePhone Number .[employer] (CLIA #:[id number]) [address] [address], [place] (CLIA #:[id number]) [address] [phone] from Last 3 Months Insurance Care Teams Team MemberRelationshipSpecialtyStart DateEnd Date Florentino Mabry MD [address] [place] [address] [place] [address] [place] [address] PCP - GeneralFamily Vtippddg44/15/23 Bharath Bajwa DO [address] [place] [address] Faptjszcwpdssy72/1/23 Anushka Helms DO [address] [phone] Referring PhysicianNeurolog03/16/22
[2025-02-01 20:17] LABS: Hematocrit 43.3 % (36.0-48.0); Hemoglobin 15.0 g/dL (12.0-16.0); Mean Corpuscular HGB Conc 34.6 g/dL (29.9-35.2); Mean Corpuscular Hemoglobin 29.1 pg (26.7-34.0); Mean Corpuscular Volume 84.1 fL (81.0-99.0); Platelet Count 348 10^3/uL (150-450); Red Blood Count 5.15 10^6/uL (4.20-5.40); White Blood Count 13.5 10^3/uL (4.0-11.0)
[2025-02-01] MEDS: ASPIRIN 81 MG TAB.CHEW 324 MG PO (20:22)
[2025-02-01] MEDS: FAMOTIDINE/PF 20 MG/2 ML VIAL IV (20:23)
[2025-02-01] MEDS: MORPHINE SULFATE 4 MG/ML VIAL IV (20:23)
[2025-02-01 20:32] LABS: Alanine Aminotransferase 40 U/L (14-59); Albumin Globulin Ratio 1.4; Albumin Level 4.2 g/dL (3.4-5.0); Alkaline Phosphatase 94 U/L (46-116); Anion Gap 11.0; Aspartate Amino Transferase 28 U/L (15-37); Blood Urea Nitrogen 14.0 mg/dL (7.0-18.0); Calcium 9.9 mg/dL (8.5-10.1); Carbon Dioxide 32.2 mmol/L (21.0-32.0); Chloride 93 mmol/L (98-107); Estimated GFR (African America >60 (>=60 mL/min/1.73m^2); Estimated GFR (Non-African Ame 51 (>=60 mL/min/1.73m^2); Globulin 2.9 g/dL; Glucose 112 mg/dL (74-106); Lipase 66.0 U/L (16.0-77.0); Potassium 4.2 mmol/L (3.5-5.1); Sodium 132 mmol/L (136-145); Total Protein 7.1 g/dL (6.4-8.2)
[2025-02-01 21:11] LABS: Basophils Abs Manual 0.00 10^3/uL (0.00-0.10); Basophils Percent Manual 0.0 % (0.2-2.0); Eosinophils Absolute Manual 0.00 10^3/uL (0.00-0.70); Eosinophils Percent Manual 0.0 % (0.9-7.0); Lymphocytes Absolute Manual 3.51 10^3/uL (1.20-3.80); Lymphocytes Percent Manual 26.0 % (20.5-60.0); Monocytes Absolute Manual 2.16 10^3/uL (0.30-0.80); Monocytes Percent Manual 16.0 % (1.7-12.0); Segmented Neut Absolute Manual 7.83 10^3/uL (1.4-6.5); Segmented Neutrophils % Manual 58.0 (43.0-75.0)
[2025-02-01] MEDS: HYDROCODONE/ACET 5-325 MG TABLET 1 TAB PO (22:19)
[2025-02-01] MEDS: ONDANSETRON 4 MG RAPDIS TABLET SL (22:19)
== END 2025-02-01 22:33 | disposition home or self-care (01) ==
PROVIDERS: Emergency Provider Emergency Medicine; PCP Family Medicine
DX: R07.9 Chest pain, unspecified (principal); K59.00 Constipation, unspecified; K44.9 Diaphragmatic hernia without obstruction or gangrene
CPT/HCPCS: 36415; 71260; 74177; 80053; 83690; 84484; 85007; 85027; 85378; 93005; 96374; 96375; 99285; J2270; J2405; J3490; Q0162; Q9967